=== PATIENT | female | born 1955 | race Caucasian/White ===

== ENCOUNTER 2018-03-21 00:53 | Outpatient (CLI) | payer OTHER, SELFPAY ==
--- NOTE | 2018-03-21 14:52 | DI.RAD_ITS ---
SYMPTOMS/DIAGNOSIS: MALIGNANT NEOPLASM OF LT BREAST, ESTROGEN-RECEPTOR POSITIVE , C50.412, Z17.0, ON AROMATASE INHIBITOR, ROUTINE F/U DEXA SCAN: The scanogram of the dorsolumbar spine is unremarkable. For the left hip, a T score of -0.7 and a Z score of 0.4 are within the normal range. For the lumbar spine, a T score of -2.2 and a Z score of -0.6 indicate osteopenia and an increased fracture risk. For the left forearm, a T score of -2.3 and a Z score of -0.9 are consistent with osteopenia and an increased fracture risk.
== END 2018-03-21 01:13 ==
PROVIDERS: PCP Physician Assistant Medical; Visit Provider Internal Medicine Medical Oncology
DX: C50.412 Malignant neoplasm of upper-outer quadrant of left female breast (principal); Z17.0 Estrogen receptor positive status [ER+]; Z79.811 Long term (current) use of aromatase inhibitors; M85.832 Other specified disorders of bone density and structure, left forearm; M85.88 Other specified disorders of bone density and structure, other site
CPT/HCPCS: 77080

== ENCOUNTER 2018-05-29 08:59 | Outpatient (REF) | payer OTHER, SELFPAY ==
[2018-05-29 20:24] LABS: Anion Gap 9.9 mmol/L (3-11); BUN 14 mg/dL (7-18); CO2 27.1 mmol/L (21.0-32.0); CREATININE 0.69 mg/dL (0.55-1.02); Calcium 9.3 mg/dL (8.5-10.1); Chloride 103 mmol/L (98-107); Glucose 92 mg/dL (70-100); Potassium 4.2 mmol/L (3.5-5.1); Sodium 140 mmol/L (136-145); TSH 2.04 uIU/mL (0.358-3.74)
== END 2018-05-29 09:19 ==
LOC: NCHCN 08:59
PROVIDERS: PCP Physician Assistant Medical; Visit Provider Nurse Practitioner Family
DX: E87.6 Hypokalemia (principal); I10 Essential (primary) hypertension; E03.9 Hypothyroidism, unspecified; Z00.00 Encounter for general adult medical examination without abnormal findings
CPT/HCPCS: 80048; 84443

== ENCOUNTER 2018-06-27 20:24 | Outpatient (REF) | payer OTHER, SELFPAY ==
[2018-07-01 09:03] LABS: Cyclic Citrullinated Peptide <2.5 U/mL (<5.0)
[2018-07-01 10:16] LABS: Rheumatoid Factor <8 IU/mL (<12.5)
== END 2018-06-27 20:44 ==
LOC: NCHCN 20:24
PROVIDERS: PCP Nurse Practitioner Family; Visit Provider Nurse Practitioner Family
DX: M25.50 Pain in unspecified joint (principal); M70.61 Trochanteric bursitis, right hip
CPT/HCPCS: 86200; 86431

== ENCOUNTER 2018-07-03 00:24 | Outpatient (CLI) | payer OTHER, SELFPAY ==
--- NOTE | 2018-07-03 14:00 | DI.RAD_ITS ---
SYMPTOMS/DIAGNOSIS: LEFT HAND JOINT PAIN, M25.50 ARTHRITIS SERIES, BILATERAL HANDS: There is mild narrowing of the interphalangeal joints and mild periarticular spurring. No erosive or productive changes are seen. Minimal degenerative changes are seen in the metacarpophalangeal and carpal regions. IMPRESSION: Mild degenerative changes of the interphalangeal joints of the fingers.
== END 2018-07-03 00:44 ==
PROVIDERS: PCP Family Medicine; Visit Provider Nurse Practitioner Family
DX: M79.641 Pain in right hand (principal); M79.642 Pain in left hand; M19.041 Primary osteoarthritis, right hand; M19.042 Primary osteoarthritis, left hand
CPT/HCPCS: 73120

== ENCOUNTER 2018-07-19 12:56 | Outpatient (CLI) | payer OTHER, SELFPAY ==
[2018-07-19 13:59] LABS: Abs Immature Grans 0.02 k/cumm (0.0-0.09); Absolute Basophil Count 0.03 k/cumm (0.0-0.2); Absolute Eosinophil Count 0.19 k/cumm (0.0-0.7); Absolute Lymphocyte Count 2.02 k/cumm (1.2-3.4); Absolute Monocyte Count 0.56 k/cumm (0.11-0.7); Absolute Neutrophil Count 3.52 k/cumm (1.2-6.7); Basophils % 0.5; HCT 39.3 % (36.0-46.0); HGB 13.4 g/dL (12.0-15.5); Immature Grans % 0.3; Lymphocytes % 31.9; Mean Corp. HGB Concentration 34.1 g/dL (32.0-36.0); Mean Corpuscular Hemoglobin 30.7 pg (27.0-33.0); Mean Corpuscular Volume 90.1 fL (80-95); Mean Platelet Volume 10.6 fL (8.0-11.0); Monocytes % 8.8; Neutrophils % 55.5; Platelet Count 236 x1000/uL (130-400); RBC 4.36 m/cumm (4.00-5.20); RBC Distribution Width 12.7 % (11.7-14.6); White Blood Cell Count 6.34 k/cumm (4.4-10.8)
[2018-07-19 14:50] LABS: ALT 23 U/L (12-78); AST 15 U/L (15-37); Albumin 3.4 g/dL (3.4-5.0); Alkaline Phosphatase 108 U/L (46-116); Anion Gap 11.1 mmol/L (3-11); BUN 16 mg/dL (7-18); Bilirubin, Total 0.2 mg/dL (0.2-1.0); CO2 26.9 mmol/L (21.0-32.0); CREATININE 0.95 mg/dL (0.55-1.02); Calcium 9.2 mg/dL (8.5-10.1); Chloride 105 mmol/L (98-107); Estimated GFR 59.41 (mL/min/1.73m2); Glucose 117 mg/dL (70-100); Sodium 143 mmol/L (136-145); Total Protein 6.2 g/dL (6.4-8.2)
== END 2018-07-19 13:16 ==
PROVIDERS: PCP Family Medicine; Visit Provider Internal Medicine Medical Oncology
DX: C50.412 Malignant neoplasm of upper-outer quadrant of left female breast (principal); Z17.0 Estrogen receptor positive status [ER+]
CPT/HCPCS: 36415; 80053; 85025

== ENCOUNTER 2018-08-26 12:16 | Outpatient (REF) | payer SELFPAY ==
[2018-08-26 22:07] LABS: ALT 32 U/L (12-78); AST 22 U/L (15-37); Albumin 3.7 g/dL (3.4-5.0); Alkaline Phosphatase 97 U/L (46-116); Bilirubin, Total 0.4 mg/dL (0.2-1.0); CREATININE 0.63 mg/dL (0.55-1.02); Total Protein 7.2 g/dL (6.4-8.2)
== END 2018-08-26 12:36 ==
LOC: NCHCN 12:16
PROVIDERS: PCP Family Medicine; Visit Provider Nurse Practitioner Family
DX: B35.1 Tinea unguium (principal); I10 Essential (primary) hypertension; F17.200 Nicotine dependence, unspecified, uncomplicated; E78.5 Hyperlipidemia, unspecified
CPT/HCPCS: 80076; 82565

== ENCOUNTER 2018-09-02 17:55 | Emergency (ER) | payer OTHER, SELFPAY ==
--- NOTE | 2018-09-02 17:57 | W.ED.GENAD ---
Discharge Plan Disposition Patient Disposition: HOME Condition: Stable Discharge Details Chief Complaint: RespSymp Clinical Impression: COPD exacerbation, Shortness of breath Reason For Visit: chills , head ache , nausa Primary Care Provider: Yolanda Diamond V ED Provider: Ming Serrano Home Meds and New Rx's Prescriptions: New doxycycline hyclate 100 mg capsule 100 mg PO BID Qty: 14 RF: 0 prednisone 20 mg tablet 60 mg PO DAILY 5 Days Qty: 15 RF: 0 ondansetron 4 mg tablet,disintegrating 4 mg PO TID PRN (Reason: nausea and vomiting) 5 Days Qty: 30 RF: 0 Continued simvastatin 40 MG tablet 40 mg PO HS RF: 0 levothyroxine 25 MCG tablet 25 mcg PO DAILY RF: 0 ibuprofen 600 MG tablet 600 mg PO QID PRNRF: 0 Chantix Continuing Month Sloan 1 MG tablet 1 mg PO BID RF: 0 Combivent 200 PUFF aerosol 1 - 2 puff Inhalation PRN PRNRF: 0 anastrozole 1 mg Tablet 1 mg PO DAILY AM RF: 0 Discharge Instructions Instructions: COPD (Chronic Obstructive Pulmonary Disease) (ED) Additional Instructions: Your lab work and chest xray did not show any concerning findings. Given your history of smoking I am treating your symptoms as a possible COPD exacerbation Follow up with your primary care provider within a week. Discuss having formal testing for COPD as well you can take 1000mg tylenol and 600mg ibuprofen every 6 hours for pain If you feel you are becoming more ill, having worsening difficulty breathing or persistent vomit return to the emergency department Medical Decision Making 63 yo female with hx of smoking, htn, breast cancer, who comes in with myalgias, cough and shortness of breath starting today. Denies recent travel, has had nausea. NO rashes. She has wheezing bilaterally on exam in all lung addison and intermittently coughs. 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 Will eval for pna, treat likely copd exacerbation with steroids and neb and also obtain chest xray to eval for pna. HAs no evidence of dvt and symptoms seem more infectious so do not feel PE workup indicated at this time labs show no significant abnormality, xray and flu test negative, she remains HD stable. I feel this is likely copd exacerbation, will treat as such with abx and prednisone. SHe is stable for outpatient management, advised f/u with pcp and return precautions given Differential Diagnosis influenza, pna, copd exacerbation Medical Records Medical records reviewed: Yes I reviewed the patient's medical records. Imaging Data Radiologic Study: Attestation: I personally reviewed and interpreted this imaging study as follows: Imaging: X-Ray Radiologist's impression: IMPRESSION: Negative for acute thoracic pathology. Lab Data Lab results reviewed: Yes I reviewed the patient's lab results. HPI General Mode of arrival: ambulatory. Date/Time Provider Initiated Documentation: 09/02/18 17:56. Limitations to Documentation: no limitations. Information obtained by: patient. History of Present Illness 63 year old F presents to the emergency department with the chief complaint of cough, described as moderate, with intensity rated at 4. Quality is described as aching, Patient reports no radiation. Patient started experiencing this day(s) (1) and it has been constant. No relieving factors improve symptom(s), No exacerbating factors reported . Patient notes other (muscle aches). Patient did receive the following treatments prior to arrival, none Related Data Home Medications Medication Instructions Recorded Confirmed Chantix Continuing Month Sloan 1 mg PO BID tab-cap 03/16/15 09/02/18 ibuprofen 600 mg PO QID PRN 03/16/15 09/02/18 levothyroxine 25 mcg PO DAILY tab-cap 03/16/15 09/02/18 simvastatin 40 mg PO HS tab-cap 03/16/15 09/02/18 Combivent 1 - 2 puff INHALATION PRN PRN 09/15/15 09/02/18 anastrozole 1 mg PO DAILY AM 09/02/18 09/02/18 doxycycline hyclate 100 mg PO BID #14 cap 09/02/18 ondansetron 4 mg PO TID PRN 5 Days #30 tab 09/02/18 prednisone 60 mg PO DAILY 5 Days #15 tab 09/02/18 Previous Rx's Medication Instructions Recorded doxycycline hyclate 100 mg PO BID #14 cap 09/02/18 ondansetron 4 mg PO TID PRN 5 Days #30 tab 09/02/18 prednisone 60 mg PO DAILY 5 Days #15 tab 09/02/18 Allergies Allergy/AdvReac Type Severity Reaction Status Date / Time No Known Allergies Allergy Unverified 09/02/18 18:08 Review of Systems Review of Systems All systems reviewed & are unremarkable except as noted in HPI and below Constitutional Denies fever(s) and Denies weakness ENT Denies change in voice Cardiovascular Denies chest pain Gastrointestinal Denies abdominal pain, Denies nausea and Denies vomiting Genitourinary Denies dysuria Musculoskeletal Denies joint swelling Integumentary/Breasts Denies rash Neurologic Denies weakness Psychiatric Denies depression [facility] Medical History Breast cancer, stage 2 HTN (hypertension) Hyperlipidemia Hypothyroidism Surgical History Breast, Lumpectomy sentinel lymph node dissection Social History Smoking and Tabacco status: Former Tobacco Use Exam Const General: no acute distress Orientation: alert HENWV Head: normal to inspection Ears: external ears normal General nose exam: external nose normal Mouth: moist mucous membranes Eyes General: appearance normal, both eyes and all related structures Neck Neck: normal visual inspection Resp Effort & Inspection: normal respiratory effort and able to speak in complete sentences Cardio Rate: regular rate Skin General skin exam: no rashes or lesions noted Neuro General: alert and oriented x3 Extrem General: normal to inspection Psych Mental Status: mental status grossly normal
[2018-09-02 18:05] VITALS: BP 136/58; PULSE 106; RESP 22; TEMP 36.5; O2SAT 95
--- NOTE | 2018-09-02 18:05 | DI.RAD_ITS ---
SYMPTOM/DIAGNOSIS: COUGH PA AND LATERAL CHEST: Comparison is made with 10/26/15. The heart size is normal. The lungs appear clear. Upper lung hyperinflation is noted consistent with emphysematous changes. IMPRESSION: No acute abnormality.
--- NOTE | 2018-09-02 18:09 | ED.GENADUL_ITS ---
Discharge Plan Disposition Patient Disposition: HOME Condition: Stable Discharge Details Chief Complaint: RespSymp Clinical Impression: COPD exacerbation, Shortness of breath Reason For Visit: chills , head ache , nausa Primary Care Provider: Yolanda Daimond V ED Provider: Ming Serrano Home Meds and New Rx's Prescriptions: New doxycycline hyclate 100 mg capsule 100 mg PO BID Qty: 14 RF: 0 prednisone 20 mg tablet 60 mg PO DAILY 5 Days Qty: 15 RF: 0 ondansetron 4 mg tablet,disintegrating 4 mg PO TID PRN (Reason: nausea and vomiting) 5 Days Qty: 30 RF: 0 Continued simvastatin 40 MG tablet 40 mg PO HS RF: 0 levothyroxine 25 MCG tablet 25 mcg PO DAILY RF: 0 ibuprofen 600 MG tablet 600 mg PO QID PRNRF: 0 Chantix Continuing Month Sloan 1 MG tablet 1 mg PO BID RF: 0 Combivent 200 PUFF aerosol 1 - 2 puff Inhalation PRN PRNRF: 0 anastrozole 1 mg Tablet 1 mg PO DAILY AM RF: 0 Discharge Instructions Instructions: COPD (Chronic Obstructive Pulmonary Disease) (ED) Additional Instructions: Your lab work and chest xray did not show any concerning findings. Given your history of smoking I am treating your symptoms as a possible COPD exacerbation Follow up with your primary care provider within a week. Discuss having formal testing for COPD as well you can take 1000mg tylenol and 600mg ibuprofen every 6 hours for pain If you feel you are becoming more ill, having worsening difficulty breathing or persistent vomit return to the emergency department Medical Decision Making 63 yo female with hx of smoking, htn, breast cancer, who comes in with myalgias, cough and shortness of breath starting today. Denies recent travel, has had nausea. NO rashes. She has wheezing bilaterally on exam in all lung addison and intermittently coughs. She has no meningismus to suggest account associate infection. Will eval for pna, treat likely copd exacerbation with steroids and neb and also obtain chest xray to eval for pna. HAs no evidence of dvt and symptoms seem more infectious so do not feel PE workup indicated at this time labs show no significant abnormality, xray and flu test negative, she remains HD stable. I feel this is likely copd exacerbation, will treat as such with abx and prednisone. SHe is stable for outpatient management, advised f/u with pcp and return precautions given Differential Diagnosis influenza, pna, copd exacerbation Medical Records Medical records reviewed: Yes I reviewed the patient's medical records. Imaging Data Radiologic Study: Attestation: I personally reviewed and interpreted this imaging study as follows: Imaging: X-Ray Radiologist's impression: IMPRESSION: Negative for acute thoracic pathology. Lab Data Lab results reviewed: Yes I reviewed the patient's lab results. HPI General Mode of arrival: ambulatory . Date/Time Provider Initiated Documentation: 09/02/18 17:56 . Limitations to Documentation: no limitations . Information obtained by: patient . History of Present Illness 63 year old F presents to the emergency department with the chief complaint of cough, described as moderate, with intensity rated at 4. Quality is described as aching, Patient reports no radiation. Patient started experiencing this day(s) (1) and it has been constant. No relieving factors improve sy mptom(s), No exacerbating factors reported . Patient notes other (muscle aches). Patient did receive the following treatments prior to arrival, none Related Data Home Medications Medication Instructions Recorded Confirmed Chantix Continuing Month Sloan 1 mg PO BID tab-cap 03/16/15 09/02/18 ibuprofen 600 mg PO QID PRN 03/16/15 09/02/18 levothyroxine 25 mcg PO DAILY tab-cap 03/16/15 09/02/18 simvastatin 40 mg PO HS tab-cap 03/16/15 09/02/18 Combivent 1 - 2 puff INHALATION PRN PRN 09/15/15 09/02/18 anastrozole 1 mg PO DAILY AM 09/02/18 09/02/18 doxycycline hyclate 100 mg PO BID #14 cap 09/02/18 ondansetron 4 mg PO TID PRN 5 Days #30 tab 09/02/18 prednisone 60 mg PO DAILY 5 Days #15 tab 09/02/18 Previous Rx's Medication Instructions Recorded doxycycline hyclate 100 mg PO BID #14 cap 09/02/18 ondansetron 4 mg PO TID PRN 5 Days #30 tab 09/02/18 prednisone 60 mg PO DAILY 5 Days #15 tab 09/02/18 Allergies Allergy/AdvReac Type Severity Reaction Status Date / Time No Known Allergies Allergy Unverified 09/02/18 18:08 Review of Systems Review of Systems All systems reviewed & are unremarkable except as noted in HPI and below Constitutional Denies fever(s) and Denies weakness ENT Denies change in voice Cardiovascular Denies chest pain Gastrointestinal Denies abdominal pain, Denies nausea and Denies vomiting Genitourinary Denies dysuria Musculoskeletal Denies joint swelling Integumentary/Breasts Denies rash Neurologic Denies weakness Psychiatric Denies depression [facility] Medical History Breast cancer, stage 2 HTN (hypertension) Hyperlipidemia Hypothyroidism Surgical History Breast, Lumpectomy sentinel lymph node dissection Social History Smoking and Tabacco status: Former Tobacco Use Exam Const General: no acute distress Orientation: alert HENVA Head: normal to inspection Ears: external ears normal General nose exam: external nose normal Mouth: moist mucous membranes Eyes General: appearance normal, both eyes and all related structures Neck Neck: normal visual inspection Resp Effort & Inspection: normal respiratory effort and able to speak in complete sentences Cardio Rate: regular rate Skin General skin exam: no rashes or lesions noted Neuro General: alert and oriented x3 Extrem General: normal to inspection Psych Mental Status: mental status grossly normal
[2018-09-02] MEDS: Albuterol/Ipratropium 3 ML UPD VIAL UPD (18:19)
[2018-09-02] MEDS: Normal Saline 1,000 ML 1000 ML IV (18:29)
[2018-09-02] MEDS: methylPREDNISolone SUCC 125 MG VIAL IVP (18:30)
[2018-09-02] MEDS: Ondansetron 4 MG/2 ML VIAL IVP (18:43)
[2018-09-02] MEDS: Ketorolac 15 MG/ML VIAL IVP (18:45)
[2018-09-02 18:49] VITALS: RESP 8
[2018-09-02 18:51] LABS: Abs Immature Grans 0.02 k/cumm (0.0-0.09); Absolute Basophil Count 0.02 k/cumm (0.0-0.2); Absolute Eosinophil Count 0.03 k/cumm (0.0-0.7); Absolute Lymphocyte Count 0.53 k/cumm (1.2-3.4); Absolute Monocyte Count 0.53 k/cumm (0.11-0.7); Basophils % 0.2; Eosinophils % 0.4; HCT 40.9 % (36.0-46.0); Immature Grans % 0.2; Lymphocytes % 6.4; Mean Corp. HGB Concentration 34.2 g/dL (32.0-36.0); Mean Corpuscular Hemoglobin 30.6 pg (27.0-33.0); Mean Corpuscular Volume 89.5 fL (80-95); Mean Platelet Volume 10.9 fL (8.0-11.0); Monocytes % 6.4; Neutrophils % 86.4; Platelet Count 193 x1000/uL (130-400); RBC 4.57 m/cumm (4.00-5.20); RBC Distribution Width 12.9 % (11.7-14.6); White Blood Cell Count 8.33 k/cumm (4.4-10.8)
--- NOTE | 2018-09-02 19:18 | DI.VRAD_ITS ---
EXAM: XR Chest, 2 Views EXAM DATE/TIME: 09/02/2018 6:06 PM CLINICAL HISTORY: 63 years old, female; Signs and symptoms; Cough TECHNIQUE: XR of the chest, 2 views. COMPARISON: CR CHEST 2 VIEWS PA,LAT 10/26/2015 9:11 PM FINDINGS: Lungs: There is mild pulmonary hyperexpansion which would suggest mild COPD. No acute interstitial or airspace disease. Pleural space: Unremarkable. No pleural effusion. No pneumothorax. Heart/Mediastinum: Unremarkable. No cardiomegaly. Bones/joints: No acute skeletal abnormality. IMPRESSION: Negative for acute thoracic pathology. Dictated and Authenticated by: Leonid Anders MD. Ordering:KULDEEP Lai MD
[2018-09-02 19:25] VITALS: BP 118/56; PULSE 105; TEMP 37.6; O2SAT 93
[2018-09-02 19:28] LABS: ALT 27 U/L (12-78); AST 19 U/L (15-37); Albumin 3.6 g/dL (3.4-5.0); Alkaline Phosphatase 92 U/L (46-116); Anion Gap 12.5 mmol/L (3-11); BUN 10 mg/dL (7-18); Bilirubin, Total 0.5 mg/dL (0.2-1.0); CO2 23.5 mmol/L (21.0-32.0); CREATININE 0.83 mg/dL (0.55-1.02); Calcium 9.1 mg/dL (8.5-10.1); Chloride 100 mmol/L (98-107); Glucose 116 mg/dL (70-100); Potassium 3.8 mmol/L (3.5-5.1); Sodium 136 mmol/L (136-145)
[2018-09-02] MEDS: Ondansetron O.D.T. 4 MG TABEF PO (19:42)
[2018-09-02] MEDS: Doxycycline Hyclate 100 MG CAP PO (19:42)
== END 2018-09-02 19:47 | disposition home or self-care (01) ==
PROVIDERS: Emergency Provider Emergency Medicine; PCP Family Medicine
DX: J44.1 Chronic obstructive pulmonary disease with (acute) exacerbation (principal); R06.02 Shortness of breath; Z87.891 Personal history of nicotine dependence
CPT/HCPCS: 36415; 80053; 87449; 94640; 96361; 96374; 96375; 99284; 71046; 85025; J1885; J2405; J2930; J7620

== ENCOUNTER 2019-01-15 12:25 | Outpatient (CLI) | payer OTHER, SELFPAY ==
[2019-01-15 13:19] LABS: Abs Immature Grans 0.01 k/cumm (0.0-0.09); Absolute Basophil Count 0.03 k/cumm (0.0-0.2); Absolute Eosinophil Count 0.14 k/cumm (0.0-0.7); Absolute Lymphocyte Count 2.03 k/cumm (1.2-3.4); Absolute Monocyte Count 0.47 k/cumm (0.11-0.7); Absolute Neutrophil Count 3.99 k/cumm (1.2-6.7); Basophils % 0.4; Eosinophils % 2.1; HCT 41.7 % (36.0-46.0); HGB 14.4 g/dL (12.0-15.5); Immature Grans % 0.1; Lymphocytes % 30.4; Mean Corp. HGB Concentration 34.5 g/dL (32.0-36.0); Mean Corpuscular Hemoglobin 31.2 pg (27.0-33.0); Mean Corpuscular Volume 90.5 fL (80-95); Mean Platelet Volume 11.4 fL (8.0-11.0); Platelet Count 207 x1000/uL (130-400); RBC 4.61 m/cumm (4.00-5.20); RBC Distribution Width 13.6 % (11.7-14.6); White Blood Cell Count 6.67 k/cumm (4.4-10.8)
[2019-01-15 14:05] LABS: ALT 19 U/L (12-78); AST 14 U/L (15-37); Albumin 3.4 g/dL (3.4-5.0); Alkaline Phosphatase 113 U/L (46-116); Anion Gap 11.9 mmol/L (3-11); BUN 10 mg/dL (7-18); Bilirubin, Total 0.2 mg/dL (0.2-1.0); CO2 23.1 mmol/L (21.0-32.0); CREATININE 0.68 mg/dL (0.55-1.02); Chloride 107 mmol/L (98-107); Glucose 102 mg/dL (70-100); Potassium 4.4 mmol/L (3.5-5.1); Sodium 142 mmol/L (136-145); Total Protein 6.5 g/dL (6.4-8.2)
== END 2019-01-15 12:45 ==
PROVIDERS: PCP Family Medicine; Visit Provider Nurse Practitioner Family
DX: C50.412 Malignant neoplasm of upper-outer quadrant of left female breast (principal); Z17.0 Estrogen receptor positive status [ER+]
CPT/HCPCS: 36415; 80053; 85025

== ENCOUNTER 2019-02-25 05:39 | Emergency (ER) | payer OTHER, SELFPAY ==
--- NOTE | 2019-02-25 05:44 | DI.RAD_ITS ---
SYMPTOM/DIAGNOSIS: COUGH PORTABLE CHEST: Comparison is made with 02 September 2018. Heart size is within normal limits. There are emphysematous changes seen greater near the L-1 lung apices. No infiltrate, effusion or pneumothorax is seen. IMPRESSION: No acute abnormality
[2019-02-25 05:45] VITALS: BP 159/67; PULSE 98; RESP 20; TEMP 36.3; O2SAT 92
--- NOTE | 2019-02-25 05:45 | ED.GENADUL_ITS ---
Discharge Plan Disposition Patient Disposition: HOME Condition: Stable Discharge Details Chief Complaint: SOB Clinical Impression: COPD with acute exacerbation Primary Care Provider: Yolanda Diamond V ED Provider: Ming Serrano Home Meds and New Rx's Prescriptions: New prednisone 20 mg tablet 60 mg PO DAILY 5 Days Qty: 15 RF: 0 Continued simvastatin 40 MG tablet 40 mg PO HS RF: 0 levothyroxine 25 MCG tablet 25 mcg PO DAILY RF: 0 ibuprofen 600 MG tablet 600 mg PO QID PRNRF: 0 Chantix Continuing Month Sloan 1 MG tablet 1 mg PO BID RF: 0 Combivent 200 PUFF aerosol 1 - 2 puff Inhalation PRN PRNRF: 0 anastrozole 1 mg Tablet 1 mg PO DAILY AM RF: 0 Discontinued doxycycline hyclate 100 mg capsule 100 mg PO BID Qty: 14 RF: 0 Discharge Instructions Instructions: COPD (Chronic Obstructive Pulmonary Disease) (ED) Additional Instructions: if you feel more ill, have worsening shortness of breath or severe pain return to the emergency department follow up with your primary care provider within 1 week especially if symptoms are continuing Medical Decision Making 63 yo female with hx of copd and continued smoker, hld, who comes in with cc of cough and shortness of breath for a week. Denies fevers, recent travel, vomit. Sandy similar to when she was tx'd for copd exacerbation in August per pt. She arrives in no distres, on exam has diffuse wheezing bilaterally with intermittent cough. Given her symptoms and hx will tx for copd and obtain xray to eval for infiltrate. Symptoms and exam more consistent with copd than acs or chf, Heart score is 3, will send troponin and ecg. Has no evidence of dvt, no tachycardia or hypoxia so doubt PE pt feels better after neb and steroids, labs unremarkable, probnp barely outside normal range without evidence of pulmonary edema. She is speaking in full sentences, hd stable. Lung exam significantly improved with only mild apical wheezing. Will d/c on steroids and advised f/u with pcp and return precautions given Differential Diagnosis copd, pna, chf, acs Medical Records Medical records reviewed: Yes I reviewed the patient's medical records. Imaging Data Radiologic Study: Attestation: I personally reviewed and interpreted this imaging study as follows: Imaging: X-Ray Radiologist's impression: IMPRESSION: Mild hyperinflation. No acute process. Stable appearance. Lab Data Lab results reviewed: Yes I reviewed the patient's lab results. ECG Data Attestation: I personally reviewed and interpreted this ECG (s) as follows: Prior ECG tracings: not available for review Interpretation: sinus rhythm, rate of 85, pr 184, no acute st t wave ischemic findings HPI General Mode of arrival: ambulatory . Date/Time Provider Initiated Documentation: 02/25/19 05:40 . Limitations to Documentation: no limitations . Information obtained by: patient . History of Present Illness 63 year old F presents to the emergency department with the chief complaint of shortness of breath, described as moderate, No relieving factors improve symptom(s), No exacerbating factors reported . Patient did receive the following treatments prior to arrival, none Related Data Home Medications Medication Instructions Recorded Confirmed Chantix Continuing Month Sloan 1 mg PO BID tab-cap 03/16/15 09/02/18 ibuprofen 600 mg PO QID PRN 03/16/15 09/02/18 levothyroxine 25 mcg PO DAILY tab-cap 03/16/15 09/02/18 simvastatin 40 mg PO HS tab-cap 03/16/15 09/02/18 Combivent 1 - 2 puff INHALATION PRN PRN 09/15/15 09/02/18 anastrozole 1 mg PO DAILY AM 09/02/18 09/02/18 prednisone 60 mg PO DAILY 5 Days #15 tab 02/25/19 Previous Rx's Medication Instructions Recorded prednisone 60 mg PO DAILY 5 Days #15 tab 02/25/19 Allergies Allergy/AdvReac Type Severity Reaction Status Date / Time No Known Allergies Allergy Unverified 02/25/19 05:57 General MANJIT: 3 Review of Systems Review of Systems All systems reviewed & are unremarkable except as noted in HPI and below Constitutional Denies chills, Denies fever(s) and Denies weakness Gastrointestinal Denies abdominal pain, Denies nausea and Denies vomiting Genitourinary Denies dysuria Musculoskeletal Denies joint swelling Integumentary/Breasts Denies rash Neurologic Denies weakness [facility] Social History Smoking/Tobacco Use Status: Current every day Alcohol Intake: never Drug use: Never Substance use type: does not use Exam Const General: no acute distress Orientation: alert HENMT Head: normal to inspection Ears: external ears normal General nose exam: external nose normal Mouth: moist mucous membranes Eyes General: appearance normal, both eyes and all related structures Neck Neck: normal visual inspection Resp Effort & Inspection: normal respiratory effort and able to speak in complete sentences Cardio Rate: regular rate Skin General skin exam: no rashes or lesions noted Neuro General: alert and oriented x3 Extrem General: normal to inspection Psych Mental Status: mental status grossly normal
[2019-02-25 05:50] VITALS: RESP 4
[2019-02-25] MEDS: Albuterol/Ipratropium 3 ML UPD VIAL UPD (05:50)
[2019-02-25] MEDS: methylPREDNISolone SUCC 125 MG VIAL IVP (05:51)
[2019-02-25] MEDS: Normal Saline Flush 10 ML SYR IVP (05:54)
[2019-02-25 05:58] VITALS: RESP 20
[2019-02-25 06:00] LABS: Abs Immature Grans 0.02 k/cumm (0.0-0.09); Absolute Basophil Count 0.02 k/cumm (0.0-0.2); Absolute Eosinophil Count 0.16 k/cumm (0.0-0.7); Absolute Lymphocyte Count 2.02 k/cumm (1.2-3.4); Absolute Monocyte Count 0.58 k/cumm (0.11-0.7); Absolute Neutrophil Count 6.51 k/cumm (1.2-6.7); Basophils % 0.2; Eosinophils % 1.7; HCT 41.2 % (36.0-46.0); HGB 14.3 g/dL (12.0-15.5); Immature Grans % 0.2; Lymphocytes % 21.7; Mean Corp. HGB Concentration 34.7 g/dL (32.0-36.0); Mean Corpuscular Hemoglobin 31.5 pg (27.0-33.0); Mean Corpuscular Volume 90.7 fL (80-95); Mean Platelet Volume 10.7 fL (8.0-11.0); Monocytes % 6.2; Platelet Count 239 x1000/uL (130-400); RBC 4.54 m/cumm (4.00-5.20); RBC Distribution Width 13.3 % (11.7-14.6); White Blood Cell Count 9.31 k/cumm (4.4-10.8)
[2019-02-25 06:03] VITALS: O2SAT 94
[2019-02-25 06:12] VITALS: BP 133/74; PULSE 62; RESP 20; O2SAT 95
[2019-02-25 06:20] LABS: ALT 25 U/L (14-59); AST 13 U/L (15-37); Albumin 3.5 g/dL (3.4-5.0); Alkaline Phosphatase 127 U/L (46-116); Anion Gap 10.5 mmol/L (3-11); BUN 15 mg/dL (7-18); Bilirubin, Total 0.2 mg/dL (0.2-1.0); CO2 23.5 mmol/L (21.0-32.0); CREATININE 0.88 mg/dL (0.55-1.02); Chloride 106 mmol/L (98-107); Glucose 122 mg/dL (70-100); NT-proBNP 369 pg/mL; Potassium 4.2 mmol/L (3.5-5.1); Sodium 140 mmol/L (136-145); Total Protein 7.1 g/dL (6.4-8.2)
[2019-02-25 06:21] LABS: INR 0.9 (0.9-1.1); PTT Activated 24.1 sec (21.0-31.4); Prothrombin Time 9.3 sec (9.3-11.0); Troponin I < 0.05 ng/mL (0.00-0.06)
--- NOTE | 2019-02-25 06:26 | DI.VRAD_ITS ---
EXAM: XR Chest, 1 View EXAM DATE/TIME: 02/25/2019 5:45 AM CLINICAL HISTORY: 63 years old, female; Cough and shortness of breath; Patient HX: Cough and SOB x 1 week TECHNIQUE: Imaging protocol: XR of the chest, 1 view. COMPARISON: CR XR CHEST 2V PA LATERAL 09/02/2018 6:53 PM FINDINGS: Lungs: Mild hyperinflation. No consolidative pneumonia or pulmonary edema. Pleural space: Unremarkable. No pleural effusion. No pneumothorax. Heart/Mediastinum: Cardiac size normal. Vasculature: Aortic atherosclerotic calcification. Bones/joints: Mild degenerative changes noted throughout the spine. IMPRESSION: Mild hyperinflation. No acute process. Stable appearance. Dictated and Authenticated by: Jesus Tejada MD. Ordering:KULDEEP Lai MD
== END 2019-02-25 06:59 | disposition home or self-care (01) ==
PROVIDERS: Emergency Provider Emergency Medicine; PCP Family Medicine
DX: J44.1 Chronic obstructive pulmonary disease with (acute) exacerbation (principal); F17.210 Nicotine dependence, cigarettes, uncomplicated
CPT/HCPCS: 36415; 80053; 94640; 96374; 99284; 71045; 83880; 84484; 85025; 85610; 85730; J2930; J3490; J7620

== ENCOUNTER 2019-02-25 08:15 | Emergency (ER) | payer OTHER, SELFPAY ==
[2019-02-25] VITALS (24 sets, daily range): BP systolic 130–156; BP diastolic 63–104; PULSE 87–102; RESP 15–32; TEMP 36.6–36.8; O2SAT 91–98
--- NOTE | 2019-02-25 08:17 | NUR.NOTE ---
Nursing Note: pt was here 0500 for SOB diagnosed as COPD exacerbation pt i here for identical symptoms
--- NOTE | 2019-02-25 08:24 | ED.GENADUL_ITS ---
Discharge Plan Disposition Patient Disposition: HOME Condition: Fair Discharge Details Chief Complaint: SOB Clinical Impression: COPD exacerbation Primary Care Provider: Yolanda Diamond V ED Provider: Jami Yee Home Meds and New Rx's Prescriptions: Continued simvastatin 40 MG tablet 40 mg PO HS RF: 0 levothyroxine 25 MCG tablet 25 mcg PO DAILY RF: 0 ibuprofen 600 MG tablet 600 mg PO QID PRNRF: 0 Chantix Continuing Month Sloan 1 MG tablet 1 mg PO BID RF: 0 Combivent 200 PUFF aerosol 1 - 2 puff Inhalation PRN PRNRF: 0 prednisone 20 mg tablet 60 mg PO DAILY 5 Days Qty: 15 RF: 0 anastrozole 1 mg Tablet 1 mg PO DAILY AM RF: 0 Discharge Instructions Instructions: COPD (Chronic Obstructive Pulmonary Disease) (ED) Additional Instructions: Your labs continue to be reassuring at this time. Symptoms are likely secondary to the steroids you received here this morning. Please encourage hydration. Please continue to follow with the instructions and to discharge earlier today. May use Benadryl to help with insomnia. If you develop new or worsening symptoms please seek care urgently once again. Otherwise, please follow-up with primary care at the end of the week. Referrals: Yolanda Diamond MD [Primary Care Provider] - Discharge Data Discharge Date/Time-TO BE ENTERED AT DEPARTURE: 02/25/19 10:18 Medical Decision Making <Cholo Camacho DO - Last Filed: 02/25/19 08:40> ECG Data Attestation: I personally reviewed and interpreted this ECG (s) as follows: Interpretation: EKG 8: 24 Rate 104, DC 184, QTc 476, QRS 92, sinus tachycardia, no significant elevation or depression, no Q waves. No evidence of STEMI. No other significant abnormalities. <EMMETT Krueger - Last Filed: 02/25/19 15:54> Patient is 63-year-old female presenting today with chief complaint of fatigue and shortness of breath. She reports that she has been intermittently short of breath past week. Please see HPI. On exam, she appears anxious. She is tachycardic with a pulse of 101, blood pressure elevated 156/76 which is not atypical for the patient. Lungs are clear on exam. She is not hypoxic. She is endorsing some mild chest discomfort which she states she was endorsing earlier this morning. States this is worse with cough. States the pain is fairly diffuse across the anterior aspect of the chest. Patient denies any recent travel. Is not on any estrogen therapy. Plan to screen for possible pulmonary embolism the patient's tachycardia she does not have any calf tenderness to indicate DVT. Lungs are clear at this time, I do not feel that further nebulizers appropriate. I discussed the patient as this may all be secondary to the steroids she received this morning. ECG was reviewed by Dr. Camacho. Discussed with the patient is likely associated with her steroids. However, as the patient had one troponin, will repeat this year and obtain a d-dimer to screen for possible pulmonary embolism as being the source of her shortness of breath. Patient was noted to be tachycardic on first arrival. She is not hypoxic. Did not have any bilateral lower extremity pain, no evidence of DVT. Troponin remains less than 0.05. D-dimer is 530 making it less than her cut up of 630. Discussed these findings with the patient. Advised this likely associated with her steroids. I encouraged hydration. She will continue with the steroids will use Benadryl as needed to help with sleep. She has plan to break the 60 mg of prednisone up to do 3 times daily 20 mg dosing in the upcoming days, advised that this may help with symptomatic management with a lower dose. She was given strict return precautions. Advise close follow-up with primary care. All of her questions and concerns were addressed and she is in agreement this plan. HPI <Cholo Camacho, - Last Filed: 02/25/19 08:40> General Date/Time Provider Initiated Documentation: 02/25/19 08:22 . Related Data Home Medications Medication Instructions Recorded Confirmed Chantix Continuing Month Sloan 1 mg PO BID tab-cap 03/16/15 02/25/19 ibuprofen 600 mg PO QID PRN 03/16/15 02/25/19 levothyroxine 25 mcg PO DAILY tab-cap 03/16/15 02/25/19 simvastatin 40 mg PO HS tab-cap 03/16/15 02/25/19 Combivent 1 - 2 puff INHALATION PRN PRN 09/15/15 02/25/19 anastrozole 1 mg PO DAILY AM 09/02/18 02/25/19 prednisone 60 mg PO DAILY 5 Days #15 tab 02/25/19 02/25/19 Previous Rx's Medication Instructions Recorded prednisone 60 mg PO DAILY 5 Days #15 tab 02/25/19 Allergies Allergy/AdvReac Type Severity Reaction Status Date / Time No Known Allergies Allergy Unverified 02/25/19 08:22 <EMMETT Krueger - Last Filed: 02/25/19 15:54> General Mode of arrival: ambulatory . Limitations to Documentation: no limitations . Information obtained by: patient and RN notes reviewed . HPI Narrative: Information obtained by: patient and RN notes reviewed. HPI Narrative: Patient is 63-year-old male presenting today with chief complaint of shortness of breath and fatigue. She was seen here 3 hours ago. At that time, she was diagnosed with COPD exacerbation after lengthy and appropriate evaluation which included a chest x-ray, laboratory evaluation included BNP and troponin. BNP was mildly elevated around 300 she is slightly elevated from patient's baseline. However, patient did not exhibit any bilateral lower extremity edema. Did not have any evidence of pulmonary edema. Patient was wheezing on initial exam and symptoms alleviated after nebulizer treatment. Patient does not have a nebulizer at home. She was given steroids and sent home on a steroid taper. She reports that after going home, she tried to lay down to sleep and felt jittery, was unable to fall asleep and continues to feel short of breath. General Stated Complaint: SOB MANJIT: 3 <EMMETT Krueger - Last Filed: 02/25/19 15:54> Constitutional Reports as per HPI, Denies chills, Denies fever(s), Denies headache(s), Denies lethargy and Denies poor appetite Eyes Denies change in vision ENT Denies dizziness and Denies headache(s) Cardiovascular Reports as per HPI, Reports chest pain (mild with cough), Denies lightheadedness, Denies radiating jaw, neck or arm pain, Denies palpitations, Reports dyspnea, Reports dyspnea on exertion, Reports orthopnea and Denies paroxysmal nocturnal dyspnea Respiratory Reports as per HPI, Denies chest congestion, Reports cough, Denies pain on inspiration, Reports pain with cough, Reports dyspnea, Reports dyspnea on exertion and Denies wheezing Gastrointestinal Reports as per HPI, Denies abdominal pain, Denies diarrhea, Denies nausea and Denies vomiting Musculoskeletal Reports as per HPI and Denies back pain Integumentary/Breasts Reports as per HPI and Denies rash Neurologic Reports as per HPI, Denies dizziness and Denies headache(s) Endocrine Denies palpitations Allergic/Immunologic Denies wheezing PFSH <Cholo Camacho DO - Last Filed: 02/25/19 08:40> Medical History Breast cancer, stage 2 HTN (hypertension) Hyperlipidemia Hypothyroidism Surgical History Breast, Lumpectomy sentinel lymph node dissection Social History Smoking/Tobacco Use Status: Current every day Tobacco Type: cigarettes Smoking cigarettes per day: 20 Years smoked: 50 Alcohol Intake: never Drug use: Never Substance use type: does not use Do you feel safe at home: Yes Do you feel safe in your relationship?: Yes <EMMETT Krueger - Last Filed: 02/25/19 15:54> Const General: cooperative, healthy appearing, comfortable, no acute distress and well developed Nutritional Appearance: average body habitus and well nourished Orientation: alert, awake and oriented x3 HENMT Head: normal to inspection Ears: hearing grossly normal bilaterally Mouth: moist mucous membranes Chest Chest: normal inspection of the chest, normal palpation of entire chest wall and no crepitus Resp Effort & Inspection: normal respiratory effort, able to speak in complete sentences and no respiratory distress Auscultation: clear to auscultation bilaterally, no rales, no rhonchi and no wheezes Cardio Rate: regular rate Rhythm: regular rhythm Heart Sounds: S1 normal and S2 normal GI Inspection: normal to inspection, no edema and non-distended Palpation: soft, no hepatosplenomegaly, not firm, no guarding, not rigid and nontender Auscultation: normal bowel sounds Back/Spine/Pelvis Back: no CVA tenderness Thoracic/Lumbar Spine: thoracic and lumbar spine normal to inspection Skin General skin exam: no rashes or lesions noted Trauma: no lacerations or abrasions Neuro General: alert, awake and oriented x3 Cognition: normal cognition Speech: speech normal Gait: normal gait Extrem General: normal to inspection, normal capillary refill, no pedal edema, no calf tenderness and normal gait Psych Appearance: grossly normal and well kempt Mental Status: mental status grossly normal Speech and Movement: speech and movement normal <Jami Yee PA - Last Filed: 02/25/19 15:54> Vital Signs Temperature 36.8 C 02/25/19 08:18 Pulse 101 H 02/25/19 08:18 Respiratory Rate 18 02/25/19 08:18 Blood Pressure 156/76 H 02/25/19 08:18 Pulse Oximetry 95 02/25/19 08:18 Temperature 36.8 C 02/25/19 08:18 Temperature Source Skin 02/25/19 08:18 Pulse 101 H 02/25/19 08:18 Respiratory Rate 18 02/25/19 08:18 Blood Pressure 156/76 H 02/25/19 08:18 Blood Pressure Position Supine 02/25/19 08:18 Pulse Oximetry 95 02/25/19 08:18 Oxygen Delivery Method Room Air 02/25/19 08:18 Oxygen Flow Rate 0 02/25/19 08:18 Pain Level 1 02/25/19 08:18
--- NOTE | 2019-02-25 08:42 | ED.GENADUL_ITS ---
Discharge Plan Discharge Details Chief Complaint: SOB Primary Care Provider: Yolanda Diamond V ED Provider: Jami Yee Home Meds and New Rx's Prescriptions: No Action simvastatin 40 MG tablet 40 mg PO HS RF: 0 levothyroxine 25 MCG tablet 25 mcg PO DAILY RF: 0 ibuprofen 600 MG tablet 600 mg PO QID PRNRF: 0 Chantix Continuing Month Sloan 1 MG tablet 1 mg PO BID RF: 0 Combivent 200 PUFF aerosol 1 - 2 puff Inhalation PRN PRNRF: 0 prednisone 20 mg tablet 60 mg PO DAILY 5 Days Qty: 15 RF: 0 anastrozole 1 mg Tablet 1 mg PO DAILY AM RF: 0 Medical Decision Making Patient is 63-year-old female presenting today with chief complaint of fatigue and shortness of breath. She reports that she has been intermittently short of breath past week. Please see HPI. On exam, she appears anxious. She is tachycardic with a pulse of 101, blood pressure elevated 156/76 which is not atypical for the patient. Lungs are clear on exam. She is not hypoxic. She is endorsing some mild chest discomfort which she states she was endorsing earlier this morning. States this is worse with cough. States the pain is fairly diffuse across the anterior aspect of the chest. Patient denies any recent travel. Is not on any estrogen therapy. Plan to screen for possible pulmonary embolism the patient's tachycardia she does not have any calf tenderness to indicate DVT. Lungs are clear at this time, I do not feel that further nebulizers appropriate. I discussed the patient as this may all be secondary to the steroids she received this morning. HPI General Mode of arrival: ambulatory . Date/Time Provider Initiated Documentation: 02/25/19 08:22 . Limitations to Documentation: no limitations . Information obtained by: patient and RN notes reviewed . HPI Narrative: Patient is 63-year-old male presenting today with chief complaint of shortness of breath and fatigue. She was seen here 3 hours ago. At that time, she was diagnosed with COPD exacerbation after lengthy and appropriate evaluation which included a chest x-ray, laboratory evaluation included BNP and troponin. BNP was mildly elevated around 300 she is slightly elevated from patient's baseline. However, patient did not exhibit any bilateral lower extremity edema. Did not have any evidence of pulmonary edema. Patient was wheezing on initial exam and symptoms alleviated after nebulizer treatment. Patient does not have a nebulizer at home. She was given steroids and sent home on a steroid taper. She reports that after going home, she tried to lay down to sleep and felt jittery, was unable to fall asleep and continues to feel short of breath. Related Data Home Medications Medication Instructions Recorded Confirmed Chantix Continuing Month Sloan 1 mg PO BID tab-cap 03/16/15 02/25/19 ibuprofen 600 mg PO QID PRN 03/16/15 02/25/19 levothyroxine 25 mcg PO DAILY tab-cap 03/16/15 02/25/19 simvastatin 40 mg PO HS tab-cap 03/16/15 02/25/19 Combivent 1 - 2 puff INHALATION PRN PRN 09/15/15 02/25/19 anastrozole 1 mg PO DAILY AM 09/02/18 02/25/19 prednisone 60 mg PO DAILY 5 Days #15 tab 02/25/19 02/25/19 Previous Rx's Medication Instructions Recorded prednisone 60 mg PO DAILY 5 Days #15 tab 02/25/19 Allergies Allergy/AdvReac Type Severity Reaction Status Date / Time No Known Allergies Allergy Unverified 02/25/19 08:22 General Stated Complaint: SOB MANJIT: 3 Review of Systems Constitutional Reports as per HPI, Denies chills, Denies fever(s), Denies headache(s), Denies lethargy and Denies poor appetite Eyes Denies change in vision ENT Denies dizziness and Denies headache(s) Cardiovascular Reports as per HPI, Denies dyspnea and Denies dyspnea on exertion Respiratory Reports as per HPI, Denies chest congestion, Denies cough, Denies pain on inspiration, Denies pain with cough, Denies dyspnea, Denies dyspnea on exertion and Denies wheezing Gastrointestinal Reports as per HPI, Denies abdominal pain, Denies diarrhea, Denies nausea and Denies vomiting Musculoskeletal Reports as per HPI and Denies back pain Integumentary/Breasts Reports as per HPI and Denies rash Neurologic Reports as per HPI, Denies dizziness and Denies headache(s) Allergic/Immunologic Denies wheezing [facility] Medical History Breast cancer, stage 2 HTN (hypertension) Hyperlipidemia Hypothyroidism Surgical History Breast, Lumpectomy sentinel lymph node dissection Social History Smoking/Tobacco Use Status: Current every day Tobacco Type: cigarettes Smoking cigarettes per day: 20 Years smoked: 50 Alcohol Intake: never Drug use: Never Substance use type: does not use Do you feel safe at home: Yes Do you feel safe in your relationship?: Yes Exam Const General: cooperative, healthy appearing, comfortable, no acute distress and well developed Nutritional Appearance: average body habitus and well nourished Orientation: alert, awake and oriented x3 HENMT Head: normal to inspection Ears: hearing grossly normal bilaterally Mouth: moist mucous membranes Chest Chest: normal inspection of the chest, normal palpation of entire chest wall and no crepitus Resp Effort & Inspection: normal respiratory effort, able to speak in complete sentences and no respiratory distress Auscultation: clear to auscultation bilaterally, no rales, no rhonchi and no wheezes Cardio Rate: regular rate Rhythm: regular rhythm Heart Sounds: S1 normal and S2 normal GI Inspection: normal to inspection, no edema and non-distended Palpation: soft, no hepatosplenomegaly, not firm, no guarding, not rigid and nontender Auscultation: normal bowel sounds Back/Spine/Pelvis Back: no CVA tenderness Thoracic/Lumbar Spine: thoracic and lumbar spine normal to inspection Skin General skin exam: no rashes or lesions noted Trauma: no lacerations or abrasions Neuro General: alert, awake and oriented x3 Cognition: normal cognition Speech: speech normal Gait: normal gait Extrem General: normal to inspection, normal capillary refill, no pedal edema, no calf tenderness and normal gait Psych Appearance: grossly normal and well kempt Mental Status: mental status grossly normal Speech and Movement: speech and movement normal Course Vital Signs Temperature 36.8 C 02/25/19 08:18 Pulse 101 H 02/25/19 08:18 Respiratory Rate 18 02/25/19 08:18 Blood Pressure 156/76 H 02/25/19 08:18 Pulse Oximetry 95 02/25/19 08:18 Temperature 36.8 C 02/25/19 08:18 Temperature Source Skin 02/25/19 08:18 Pulse 101 H 02/25/19 08:18 Respiratory Rate 22 02/25/19 08:34 Respiratory Effort Non-Labored 02/25/19 08:34 Respiratory Depth Shallow 02/25/19 08:34 Respiratory Pattern Normal 02/25/19 08:34 Blood Pressure 156/76 H 02/25/19 08:18 Blood Pressure Position Supine 02/25/19 08:18 Pulse Oximetry 95 02/25/19 08:18 Oxygen Delivery Method Room Air 02/25/19 08:18 Oxygen Flow Rate 0 02/25/19 08:18 Pain Level 1 02/25/19 08:18
[2019-02-25 09:28] LABS: Troponin I < 0.05 ng/mL (0.00-0.06)
[2019-02-25 09:39] LABS: D-Dimer 530 ng/mlFEU (<500)
== END 2019-02-25 10:18 | disposition home or self-care (01) ==
PROVIDERS: Emergency Provider Physician Assistant; PCP Family Medicine
DX: J44.1 Chronic obstructive pulmonary disease with (acute) exacerbation (principal); R53.83 Other fatigue; R07.9 Chest pain, unspecified; R00.0 Tachycardia, unspecified; I10 Essential (primary) hypertension; F17.210 Nicotine dependence, cigarettes, uncomplicated
CPT/HCPCS: 36415; 93005; 99284; 84484; 85379; 93010

== ENCOUNTER 2019-02-26 11:48 | Outpatient (REF) | payer OTHER, SELFPAY ==
[2019-02-28 12:55] LABS: Alpha 1 Antitrypsin,Serum 137 mg/dL (90-200)
== END 2019-02-26 12:08 ==
LOC: NCHCN 11:48
PROVIDERS: PCP Family Medicine; Visit Provider Nurse Practitioner Family
DX: J44.1 Chronic obstructive pulmonary disease with (acute) exacerbation (principal)
CPT/HCPCS: 82103

== ENCOUNTER 2019-03-05 02:01 | Outpatient (CLI) | payer OTHER, SELFPAY ==
--- NOTE | 2019-03-05 | PFT_ITS ---
PULMONARY FUNCTION TEST REPORT Patient - Kelley Jensen DATE OF SERVICE March 05, 2019 REQUESTING PROVIDER Lisa Zacarias NP INTERPRETATION OF STUDY Spirometry shows moderately severe obstructive airways disease with significant bronchodilator response. LUNG VOLUMES - Lung volumes show no evidence of restriction. There is mild to moderate hyperinflation and air trapping. DIFFUSION CAPACITY- Moderately reduced even when corrected to alveolar volume. AIRWAY RESISTANCE - Normal. IMPRESSION Moderately severe obstructive airways disease with significant bronchodilator response. This is associated with mild to moderate hyperinflation and air trapping, and moderate diffusion defect. When this study was compared to previous one from 12/20/2007, the patient has a 930 cc decline in FVC, FEV1 has declined by 500 cc. Izzy Figueroa M.D. [place]/ DT 03/07/19
[2019-03-05] MEDS: Inhaler, Assist Device 1 EACH MC (16:19)
[2019-03-05] MEDS: Albuterol HFA 18 GM 200 PUFF INH IH (16:19)
== END 2019-03-05 02:21 ==
PROVIDERS: PCP Family Medicine; Visit Provider Nurse Practitioner Family
DX: J44.9 Chronic obstructive pulmonary disease, unspecified (principal); F17.200 Nicotine dependence, unspecified, uncomplicated
CPT/HCPCS: 94060; 94150; 94726; 94729

== ENCOUNTER 2019-04-17 10:15 | Outpatient (REF) | payer OTHER, SELFPAY ==
[2019-04-17 22:19] LABS: TSH (W/Ref FT4) 1.35 uIU/mL (0.36-3.74)
== END 2019-04-17 10:35 ==
LOC: NCHCN 10:15
PROVIDERS: PCP Family Medicine; Visit Provider Nurse Practitioner Family
DX: E03.9 Hypothyroidism, unspecified (principal)
CPT/HCPCS: 84443

== ENCOUNTER 2019-04-30 20:25 | Outpatient (REF) | payer OTHER, SELFPAY ==
[2019-04-30 20:25] LABS: ALT 27 U/L (14-59); AST 16 U/L (15-37); Calculated LDL 115 mg/dL; Cholesterol 196 mg/dL (50-200); Glucose 96 mg/dL (70-100); HDL Cholesterol 45 mg/dL (40-60); Triglyceride 182 mg/dL (30-150)
[2019-04-30 20:54] LABS: Creatine Kinase 33 U/L (26-192)
== END 2019-04-30 20:45 ==
LOC: NCHCN 20:25
PROVIDERS: PCP Family Medicine; Visit Provider Nurse Practitioner Family
DX: E03.9 Hypothyroidism, unspecified (principal); J44.9 Chronic obstructive pulmonary disease, unspecified; F17.200 Nicotine dependence, unspecified, uncomplicated; E78.5 Hyperlipidemia, unspecified
CPT/HCPCS: 80061; 82550; 82947; 84450; 84460

== ENCOUNTER 2019-06-17 11:10 | Outpatient (REF) | payer OTHER, SELFPAY ==
[2019-06-17 22:18] LABS: Calculated LDL 121 mg/dL; Cholesterol 198 mg/dL (<200); HDL Cholesterol 50 mg/dL (40-60); Triglyceride 138 mg/dL (<150)
== END 2019-06-17 11:30 ==
LOC: NCHCN 11:10
PROVIDERS: PCP Family Medicine; Visit Provider Nurse Practitioner Family
DX: E78.5 Hyperlipidemia, unspecified (principal)
CPT/HCPCS: 80061

== ENCOUNTER 2019-08-04 01:34 | Outpatient (CLI) | payer OTHER, SELFPAY ==
--- NOTE | 2019-08-04 12:54 | DI.CTLCSR_ITS ---
EXAM: CT CHEST LUNG CANCER SCREEN CLINICAL HISTORY: PERSONAL H/O SMOKING, Z87.891, 45+ PACK-YEAR HISTORY, QUIT IN 04/2019. TECHNIQUE: Imaging protocol: Axial computed tomography images were obtained and coronal and sagittal reformatted images were created and reviewed. COMPARISON: CHEST - LUNG CANCER SCREENING from 08/28/2017 FINDINGS: Tracheobronchial tree: Patent where visualized. Mediastinum and Ann-Marie: No dominant adenopathy or fluid collection. Pulmonary parenchyma: No consolidation or dominant measurable mass. Moderately severe centrilobular e mphysematous changes are present in the lungs. Scarring is again seen in the left upper lobe. Pleura: No effusion or pneumothorax. Heart: The heart is not dilated. Moderate coronary artery calcification is seen. There is a persiste nt small pericardial effusion. Aorta: Atherosclerosis. No aneurysmal dilatation. Upper abdomen: Unremarkable. Lymph nodes: Within normal limits. Bones:Degenerative changes in the spine. IMPRESSION: 1. No pulmonary nodules. 2. Moderately severe centrilobular emphysematous changes. 3. Stable small pericardial effusion. Moderate coronary artery calcification. 4. Lung RADS Cat 1 - Negative: No nodules and definitely benign nodules. DATA REPOSITORY: All CT scans at this facility are submitted to the National Radiology Data Registry (NRDR) Dose Index Registry (DIR) with the [employer] ([employer]). RADIATION OPTIMIZATION: All CT scans at this facility use at least one of these dose optimization te chniques: automated exposure control; mA and/or kV adjustment per patient size (includes targeted exa ms where dose is matched to clinical indication); or iterative reconstruction.
== END 2019-08-04 01:54 ==
PROVIDERS: PCP Family Medicine; Visit Provider Nurse Practitioner Family
DX: Z12.2 Encounter for screening for malignant neoplasm of respiratory organs (principal); J43.9 Emphysema, unspecified; I31.3 Pericardial effusion (noninflammatory); Z87.891 Personal history of nicotine dependence
CPT/HCPCS: G0297

== ENCOUNTER 2019-08-25 10:46 | Outpatient (REF) | payer OTHER, SELFPAY ==
[2019-08-25 20:14] LABS: ALT 39 U/L (14-59); AST 24 U/L (15-37); HDL Cholesterol 57 mg/dL (40-60); LDL CHOLESTEROL 100 mg/dL (<100)
[2019-08-25 20:25] LABS: Creatine Kinase 46 U/L (26-192)
== END 2019-08-25 11:06 ==
LOC: NCHCN 10:46
PROVIDERS: PCP Family Medicine; Visit Provider Nurse Practitioner Family
DX: E78.5 Hyperlipidemia, unspecified (principal); J44.9 Chronic obstructive pulmonary disease, unspecified; G47.00 Insomnia, unspecified; F41.9 Anxiety disorder, unspecified
CPT/HCPCS: 82550; 83721; 83718; 84450; 84460

== ENCOUNTER 2019-12-02 11:48 | Outpatient (REF) | payer OTHER, SELFPAY ==
[2019-12-02 19:14] LABS: Anion Gap 7.6 mmol/L (3-11); BUN 14 mg/dL (7-18); CO2 25.4 mmol/L (21.0-32.0); CREATININE 0.85 mg/dL (0.55-1.02); Calcium 8.8 mg/dL (8.5-10.1); Chloride 106 mmol/L (98-107); Glucose 94 mg/dL (74-106); Potassium 4.5 mmol/L (3.5-5.1); Sodium 139 mmol/L (136-145)
== END 2019-12-02 12:08 ==
LOC: NCHCN 11:48
PROVIDERS: PCP Family Medicine; Visit Provider Nurse Practitioner Family
DX: I10 Essential (primary) hypertension (principal)
CPT/HCPCS: 80048

== ENCOUNTER 2019-12-04 02:41 | Outpatient (CLI) | payer OTHER, SELFPAY ==
--- NOTE | 2019-12-04 09:54 | DI.RAD_ITS ---
EXAM: XR LUMBAR SPINE COMPLETE CLINICAL HISTORY: LOW BACK PAIN, M54.5, INCREASED LBP WORSE WITH AMB, HX BREAST CA TECHNIQUE: COMPARISON: No exams were available for comparison FINDINGS: Five views were obtained. The intervertebral disc spaces appear fairly well maintained. There are m oderate hypertrophic changes of facet joints of the lower lumbar spine. Mild hypertrophic endplate c hanges of vertebral bodies also noted throughout the lumbar region. There is no evidence spondylolys is or spondylolisthesis. Mild degenerative changes of SI joints noted. No evidence of fracture. IMPRESSION: Moderate degenerative changes as described above. No fracture or destructive lesion identified. If there is a clinical suspicion of metastatic disease in this patient with history of breast carcinoma, additional evaluation with bone scan may be considered.
== END 2019-12-04 03:01 ==
PROVIDERS: PCP Family Medicine; Visit Provider Nurse Practitioner Family
DX: M54.5 Low back pain (principal); Z85.3 Personal history of malignant neoplasm of breast; M47.816 Spondylosis without myelopathy or radiculopathy, lumbar region
CPT/HCPCS: 72110

== ENCOUNTER 2020-02-18 08:56 | Emergency (ER) | payer OTHER, SELFPAY ==
[2020-02-18] VITALS (15 sets, daily range): BP systolic 127–151; BP diastolic 66–85; PULSE 72–80; RESP 18; TEMP 36.7; O2SAT 95–98
--- NOTE | 2020-02-18 09:05 | W.ED.GENAD ---
Discharge Plan Disposition Patient Disposition: HOME Condition: Stable Discharge Details Chief Complaint: HeadInjury Clinical Impression: Laceration of scalp, Ankle fracture, left, Head injury, acute, without loss of consciousness, Fall at home Primary Care Provider: Lisa Zacarias ED Provider: Madison Hutchins Home Meds and New Rx's Prescriptions: Continued simvastatin 40 MG tablet 40 mg PO HS RF: 0 levothyroxine 25 MCG tablet 25 mcg PO DAILY RF: 0 ibuprofen 600 MG tablet 600 mg PO QID PRNRF: 0 Combivent 200 PUFF aerosol 1 - 2 puff Inhalation PRN PRNRF: 0 citalopram 20 mg tablet 20 mg PO HS RF: 0 anastrozole 1 mg Tablet 1 mg PO DAILY AM RF: 0 Discharge Instructions Instructions: Ankle Fracture (ED), Laceration (ED), Head Injury (ED) Additional Instructions: Keep wound clean and dry. Cover wound with bandage if risk of contamination. Otherwise you can keep the wound open to air if resting at home to allow edges to dry and heal. Rest, ice, and elevate the affected area as much as possible. Alternate tylenol and motrin as needed and directed for pain. Call the orthopedist today to schedule a follow-up appointment for reevaluation in the next 1 to 2 weeks. Return to the emergency department in 10 days for staple removal. Return immediately to the emergency department if you develop any worsening or new concerning symptoms such as persistent headaches, vomiting, dizziness or any other concerns. Referrals: Brian Clarke MD [ [facility] STAFF PHYSICIAN] - Discharge Data Discharge Date/Time-TO BE ENTERED AT DEPARTURE: 02/18/20 12:15 Discharge Physician: Madison Hutchins Medical Decision Making 64-year-old female presents with head injury and scalp laceration and left ankle injury after mechanical fall down 8 stairs at home just prior to arrival. No LOC or vomiting. She is hemodynamically stable. No focal deficits. She has a 3 cm laceration to her posterior scalp and tenderness and edema to left lateral ankle. She is neurovascularly intact. Lungs clear. Abdomen soft nontender. No spinal tenderness. No orthopedic deformities noted. Tetanus up-to-date 2018. She was referred for CT head and cervical spine which was negative. A left ankle x-ray noted a fracture to lateral malleolus tip. X-ray was reviewed with Dr. Clarke who thought that this was an avulsion fracture and recommended a walking boot. Patient had been placed initially in a posterior splint which was then removed and replaced with a walking boot per patient request. She declined any medication for pain for home. She was advised on the importance of RICE. She is placed on orthopedic follow-up list. Usual and customary return precautions given prior to discharge. Medical Records Medical records reviewed: Yes I reviewed the patient's medical records. Imaging Data Radiologic Study: Radiologist's impression: CT HEAD CERVICAL SPINE WO CLINICAL HISTORY: s/p fall, lac to back of head. TECHNIQUE: Imaging Protocol: Axial computed tomography images with coronal and sagittal reformatted images were created and reviewed COMPARISON: No exams were available for comparison FINDINGS: Head CT Ventricles and Extra axial spaces: Normal in size and morphology for the patient's age. Hemorrhage: None. Cerebral parenchyma: Normal. Midline shift: None. Brainstem/Cerebellum: Normal. Calvarium: Normal. Visualized Paranasal sinuses/Mastoids: Clear. Cervical Spine CT BONES: Vertebral body heights are maintained. The alignment is normal. There is no evidence of acute fracture. Degenerative disc changes and facet degenerative changes are seen . SOFT TISSUES: No paraspinal hematoma. The airway appears intact. No pneumothorax is seen at the lung apices. IMPRESSION: Head CT: No acute abnormality. C-spine CT: Degenerative changes, no acute abnormality. XR ANKLE LT COMPLETE CLINICAL HISTORY: fall down stairs, L ankle swelling, r/o fx TECHNIQUE: 2D digital imaging was performed. COMPARISON: No exams were available for comparison FINDINGS: There is soft tissue swelling around the malleoli. There is a nondisplaced fracture at tip of the lateral malleolus. There is bony density near the tip of the malleolus which is not definitely acute. No ankle mortise widening or talar dome defect is seen. IMPRESSION: Fracture at the tip of the lateral malleolus. HPI General Mode of arrival: ambulatory. Date/Time Provider Initiated Documentation: 02/18/20 09:04. Limitations to Documentation: no limitations. Information obtained by: patient. HPI Narrative: Pt is a 64yo F who presents to the ED with a complaint of head injury and left ankle pain after fall downstairs at home prior to arrival. Patient states she slipped on the top step at her home and fell down 8 steps striking the back of her head on a wooden stair or railing and twisted her L ankle. She denies LOC or vomiting. She admits to a mild headache. She denies any neck pain, chest pain, abdominal pain, back pain. She is unsure of her tetanus status. Related Data Home Medications Medication Instructions Recorded Confirmed ibuprofen 600 mg PO QID PRN 03/16/15 02/18/20 levothyroxine 25 mcg PO DAILY tab-cap 03/16/15 02/18/20 simvastatin 40 mg PO HS tab-cap 03/16/15 02/18/20 Combivent 1 - 2 puff INHALATION PRN PRN 09/15/15 02/18/20 anastrozole 1 mg PO DAILY AM 09/02/18 02/18/20 citalopram 20 mg PO HS 02/18/20 02/18/20 Allergies Allergy/AdvReac Type Severity Reaction Status Date / Time No Known Allergies Allergy Unverified 02/18/20 10:48 General MANJIT: 3 Review of Systems All systems reviewed & are unremarkable except as noted in HPI and below Constitutional Constitutional: Reports as per HPI, Denies chills and Denies fever(s) Eyes Eyes: Denies blurry vision ENT Ears, Nose, Mouth, and Throat: Denies dizziness, Denies sore throat and Denies throat swelling Cardiovascular Cardiovascular: Denies chest pain and Denies dyspnea Respiratory Respiratory: Denies cough and Denies dyspnea Gastrointestinal Gastrointestinal: Denies abdominal pain, Denies diarrhea and Denies vomiting Genitourinary Genitourinary: Denies hematuria and Denies dysuria Musculoskeletal Musculoskeletal: Denies back pain, Reports joint swelling (L ankle) and Denies numbness Integumentary/Breasts Skin/Breast: Denies lesions and Denies rash Neurologic Neurologic: Denies dizziness, Denies localized weakness and Denies numbness Allergic/Immunologic Allergic/Immunologic: Denies throat swelling [facility] Medical History (Updated 02/18/20 @ 11:47 by Madison Hutchins DO) Breast cancer, stage 2 HTN (hypertension) Hyperlipidemia Hypothyroidism Surgical History Breast, Lumpectomy sentinel lymph node dissection Social History Smoking/Tobacco Use Status: Current-Occasional Tobacco Type: cigarettes Alcohol Intake: never Drug use: Never Substance use type: does not use Do you feel safe at home: Yes Do you feel safe in your relationship?: Yes Exam Const General: cooperative and healthy appearing Orientation: alert and awake [facility] Head: normal to inspection Head images: 1. 3cm straight laceration noted on right posterior occipital head. Ears: hearing grossly normal bilaterally, external ears normal and TM's normal bilaterally General nose exam: external nose normal Face and sinus: normal facial exam Mouth: oral mucosae normal Teeth and gingiva: dentition normal Throat: posterior oropharynx normal Eyes General: appearance normal, both eyes and all related structures Eyelids: eyelids normal Pupils: PERRL EOM: EOM intact bilaterally Neck Neck: normal visual inspection Lymphatic: no lymphadenopathy noted Chest Chest: normal inspection of the chest, normal palpation of entire chest wall, no crepitus and no tenderness Resp Effort & Inspection: normal respiratory effort and able to speak in complete sentences Auscultation: clear to auscultation bilaterally Cardio Rate: regular rate Rhythm: regular rhythm GI Inspection: normal to inspection Palpation: soft, not firm, no guarding, no hepatosplenomegaly, no masses and nontender Auscultation: normal bowel sounds Back/Spine/Pelvis Cervical Spine: cervical ROM normal and No cervical spinal tenderness Thoracic/Lumbar Spine: thoracic and lumbar spine normal to inspection, No thoracic spinal tenderness and No lumbar spinal tenderness Pelvis: no pain with anterior-posterior compression Skin General skin exam: no rashes or lesions noted Neuro General: patient alert and patient awake Cranial Nerves: CN's II-XI intact bilaterally Cognition: normal cognition Speech: speech normal Gait: normal gait Motor: muscle tone normal throughout and strength 5/5 throughout Sensory Exam: no sensory deficits noted Extrem Left lower extremity: ankle Details: tenderness Location: of the lateral malleolus, of the medial malleolus and anteriorly, swelling Details: laterally and medially and abnormal ROM Details: pain with active ROM and pain with passive ROM; no abrasions, no ecchymosis and no crepitus and foot Details: normal capillary refill and vascular exam Details: dorsalis pedis pulse present and posterior tibial pulse present; no tenderness and no ecchymosis Other: No pain with range of motion of bilateral hips, knees, right ankle or foot. Bilateral distal pulses intact. Psych Appearance: grossly normal Mental Status: mental status grossly normal Speech and Movement: speech and movement normal Affect: normal affect Thought Process: normal Procedures Laceration Laceration 1: Site: scalp Side (If applicable): right Size (cm): 3 Description: linear Depth: simple, single layer Pre-repair: wound explored, irrigated extensively and deep structures intact Skin layer closed with: other (marilou) Number of sutures: 4 Orthopedic Splinting/Casting Injury #1: Side: left Lower Extremity Injury Location: ankle Lower Extremity Immobilizer: posterior splint
--- NOTE | 2020-02-18 09:15 | DI.CT_ITS ---
EXAM: CT HEAD CERVICAL SPINE WO CLINICAL HISTORY: s/p fall, lac to back of head. TECHNIQUE: Imaging Protocol: Axial computed tomography images with coronal and sagittal reformatted images were created and reviewed COMPARISON: No exams were available for comparison FINDINGS: Head CT Ventricles and Extra axial spaces: Normal in size and morphology for the patient's age. Hemorrhage: None. Cerebral parenchyma: Normal. Midline shift: None. Brainstem/Cerebellum: Normal. Calvarium: Normal. Visualized Paranasal sinuses/Mastoids: Clear. Cervical Spine CT BONES: Vertebral body heights are maintained. The alignment is normal. There is no evidence of acute fracture. Degenerative disc changes and facet degenerative changes are seen . SOFT TISSUES: No paraspinal hematoma. The airway appears intact. No pneumothorax is seen at the lung apices. IMPRESSION: Head CT: No acute abnormality. C-spine CT: Degenerative changes, no acute abnormality. Incidental RADIATION DOSE DELIVERED: LINK-TO-SR Total DLP DATA REPOSITORY: All CT scans at this facility are submitted to the National Radiology Data Registry (NRDR) Dose Index Registry (DIR) with the [employer] (ACR). RADIATION OPTIMIZATION: All CT scans at this facility use at least one of these dose optimization te chniques: automated exposure control; mA and/or kV adjustment per patient size (includes targeted exa ms where dose is matched to clinical indication); or iterative reconstruction.
--- NOTE | 2020-02-18 09:30 | DI.RAD_ITS ---
EXAM: XR ANKLE LT COMPLETE CLINICAL HISTORY: fall down stairs, L ankle swelling, r/o fx TECHNIQUE: 2D digital imaging was performed. COMPARISON: No exams were available for comparison FINDINGS: There is soft tissue swelling around the malleoli. There is a nondisplaced fracture at tip of the l ateral malleolus. There is bony density near the tip of the malleolus which is not definitely acute. No ankle mortise widening or talar dome defect is seen. IMPRESSION: Fracture at the tip of the lateral malleolus.
[2020-02-18] MEDS: Acetaminophen 500 MG TAB 1000 MG PO (11:51)
== END 2020-02-18 12:15 | disposition home or self-care (01) ==
PROVIDERS: Emergency Provider Physician Assistant; PCP Nurse Practitioner Family
DX: S09.90XA Unspecified injury of head, initial encounter (principal); S01.01XA Laceration without foreign body of scalp, initial encounter; S82.62XA Displaced fracture of lateral malleolus of left fibula, initial encounter for closed fracture; W10.8XXA Fall (on) (from) other stairs and steps, initial encounter; I10 Essential (primary) hypertension
CPT/HCPCS: 12002; 27786; 99282; 70450; 72125; 73610; 99281

== ENCOUNTER 2020-03-02 11:39 | Outpatient (CLI) | payer OTHER, SELFPAY ==
--- NOTE | 2020-03-02 10:45 | DI.RAD_ITS ---
EXAM: XR ANKLE LT COMPLETE CLINICAL HISTORY: f/u fracture TECHNIQUE: 2D digital imaging was performed. COMPARISON: CR XR ANKLE LT COMPLETE from 02/18/2020 FINDINGS: BONES: There has been no change in alignment of the lateral malleolar fracture. No new fracture or d islocation is present. No bony destructive lesion is seen. JOINTS:The ankle mortise is normally aligned. SOFT TISSUE: There is soft tissue swelling about the ankle. IMPRESSION: Stable left ankle. Soft tissue swelling about the ankle. DATA REPOSITORY: RADIATION DOSE DELIVERED:
== END 2020-03-02 11:59 ==
PROVIDERS: PCP Nurse Practitioner Family; Referring Provider Nurse Practitioner Family; Visit Provider Student in an Organized Health Care Education/Training Program
DX: S82.62XA Displaced fracture of lateral malleolus of left fibula, initial encounter for closed fracture (principal)
CPT/HCPCS: 73610

== ENCOUNTER 2020-03-23 18:45 | Outpatient (REF) | payer OTHER, SELFPAY ==
[2020-03-23 19:29] LABS: TSH 0.93 uIU/mL (0.36-3.74)
[2020-03-25 04:36] LABS: Vitamin D 25 Total 33.8 ng/ml (30-100)
== END 2020-03-23 19:05 ==
LOC: NCHCN 18:45
PROVIDERS: PCP Nurse Practitioner Family; Visit Provider Nurse Practitioner Family
DX: E03.9 Hypothyroidism, unspecified (principal); F17.200 Nicotine dependence, unspecified, uncomplicated; J44.9 Chronic obstructive pulmonary disease, unspecified; M54.5 Low back pain
CPT/HCPCS: 82306; 84443

== ENCOUNTER 2020-03-25 09:21 | Outpatient (RCR) | payer OTHER, SELFPAY ==
[2020-03-25 11:35] LABS: ALT 26 U/L (14-59); AST 17 U/L (15-37); Albumin 3.4 g/dL (3.4-5.0); Alkaline Phosphatase 105 U/L (46-116); Anion Gap 7.9 mmol/L (3-11); BUN 10 mg/dL (7-18); Bilirubin, Total 0.3 mg/dL (0.2-1.0); CO2 25.1 mmol/L (21.0-32.0); Chloride 107 mmol/L (98-107); Glucose 139 mg/dL (74-106); Potassium 3.9 mmol/L (3.5-5.1); Sodium 140 mmol/L (136-145); Total Protein 6.6 g/dL (6.4-8.2)
== END 2020-03-31 23:59 | disposition home or self-care (01) ==
LOC: INF 09:21
PROVIDERS: PCP Nurse Practitioner Family; Visit Provider Internal Medicine Hematology & Oncology
DX: C50.412 Malignant neoplasm of upper-outer quadrant of left female breast (principal); Z17.0 Estrogen receptor positive status [ER+]; M85.80 Other specified disorders of bone density and structure, unspecified site; Z79.811 Long term (current) use of aromatase inhibitors
CPT/HCPCS: 36415; 80053

== ENCOUNTER 2020-04-26 00:46 | Outpatient (CLI) | payer OTHER, SELFPAY ==
--- NOTE | 2020-04-26 14:00 | DI.MAMMO_ITS ---
EXAM: MG MAMMO SCREENING 60 MIN DUR CLINICAL HISTORY: PERSONAL H/O BREAST CA,C50.412,Z17.0, TECHNIQUE: Mammograms were interpreted according to the usual protocol including computer analysis w [facility] CAD system, tomosynthesis and C-view imaging. COMPARISON: FINDINGS: Breasts are of moderate density. There is a prior left lumpectomy in the upper outer quadrant. No n ew mass or clumped microcalcification identified in either breast. Current examination is compared w ith previous examinations including November 2014 and there has been no gross interval change in comparis on with the prior studies. IMPRESSION: No specific evidence of malignancy at this time. Routine screening examinations are suggested at yea rly intervals due to the history of breast carcinoma. BI-RADS Category 1 - Negative Breast Density - Category B - Scattered areas of fibroglandular density
== END 2020-04-26 01:06 ==
PROVIDERS: PCP Nurse Practitioner Family; Visit Provider Internal Medicine Hematology & Oncology
DX: Z12.31 Encounter for screening mammogram for malignant neoplasm of breast (principal); Z85.3 Personal history of malignant neoplasm of breast
CPT/HCPCS: 77063; 77067

== ENCOUNTER 2020-06-23 00:56 | Outpatient (CLI) | payer OTHER, SELFPAY ==
--- NOTE | 2020-06-23 14:03 | DI.RAD_ITS ---
EXAM: XR SHOULDER LT COMPLETE 2+V CLINICAL HISTORY: LT SHOULDER PAIN,M25.512 SUBACROMIAL WITH RADIATION DOWN,S/P FALL,? OA,H/O. TECHNIQUE: 2D digital imaging was performed. COMPARISON: No exams were available for comparison FINDINGS: BONES: No acute fracture is present. No bony destructive lesion is seen. JOINTS: No dislocation present. Mild degenerative changes of the acromioclavicular joint. SOFT TISSUE: Normal. IMPRESSION: 1. No acute fracture or dislocation. 2. Mild degenerative changes of the AC joint. DATA REPOSITORY: RADIATION DOSE DELIVERED:
== END 2020-06-23 01:16 ==
PROVIDERS: PCP Nurse Practitioner Family; Visit Provider Nurse Practitioner Family
DX: M19.011 Primary osteoarthritis, right shoulder (principal)
CPT/HCPCS: 73030

== ENCOUNTER 2020-08-10 13:59 | Outpatient (REF) | payer MEDICARE, SELFPAY ==
[2020-08-10 16:02] LABS: ALT 63 U/L (14-59); AST 30 U/L (15-37); Anion Gap 9.7 mmol/L (3-11); BUN 14 mg/dL (7-18); CO2 24.3 mmol/L (21.0-32.0); CREATININE 0.7 mg/dL (0.55-1.02); Calcium 9.5 mg/dL (8.5-10.1); Chloride 105 mmol/L (98-107); Glucose 114 mg/dL (74-106); HDL Cholesterol 50 mg/dL (40-60); LDL CHOLESTEROL 92 mg/dL (<100); Potassium 4.3 mmol/L (3.5-5.1); Sodium 139 mmol/L (136-145)
[2020-08-10 16:22] LABS: Creatine Kinase 54 U/L (26-192)
== END 2020-08-10 14:00 | disposition home or self-care (01) ==
LOC: NCHCN 13:59
PROVIDERS: PCP Nurse Practitioner Family; Visit Provider Nurse Practitioner Family
DX: M25.512 Pain in left shoulder (principal); E78.5 Hyperlipidemia, unspecified; I10 Essential (primary) hypertension
CPT/HCPCS: 80048; 82550; 83721; 83718; 84450; 84460

== ENCOUNTER 2020-09-15 02:19 | Outpatient (CLI) | payer MEDICARE, SELFPAY ==
[2020-09-15 12:44] LABS: ALT 53 U/L (14-59); AST 25 U/L (15-37); Albumin 3.5 g/dL (3.4-5.0); Alkaline Phosphatase 65 U/L (46-116); Anion Gap 7.5 mmol/L (3-11); BUN 12 mg/dL (7-18); Bilirubin, Total 0.4 mg/dL (0.2-1.0); CO2 26.5 mmol/L (21.0-32.0); CREATININE 0.8 mg/dL (0.55-1.02); Chloride 107 mmol/L (98-107); Glucose 109 mg/dL (74-106); Potassium 4.1 mmol/L (3.5-5.1); Sodium 141 mmol/L (136-145); Total Protein 6.9 g/dL (6.4-8.2)
== END 2020-09-15 02:20 | disposition home or self-care (01) ==
PROVIDERS: PCP Nurse Practitioner Family; Visit Provider Internal Medicine Hematology & Oncology
DX: C50.412 Malignant neoplasm of upper-outer quadrant of left female breast (principal); Z17.0 Estrogen receptor positive status [ER+]; M85.88 Other specified disorders of bone density and structure, other site; Z79.811 Long term (current) use of aromatase inhibitors
CPT/HCPCS: 36415; 80053

== ENCOUNTER → 2020-10-05 08:53 | Outpatient (BNVA) | payer MEDICARE, SELFPAY | PROVIDERS: PCP Nurse Practitioner Family; Referring Provider Nurse Practitioner Family; Visit Provider Student in an Organized Health Care Education/Training Program | DX: M75.02 Adhesive capsulitis of left shoulder (principal); M19.012 Primary osteoarthritis, left shoulder | CPT/HCPCS: 99203; 99213 ==

== ENCOUNTER → 2020-12-15 08:48 | Outpatient (BNVA) | payer MEDICARE, SELFPAY | PROVIDERS: PCP Nurse Practitioner Family; Referring Provider Nurse Practitioner Family; Visit Provider Student in an Organized Health Care Education/Training Program | DX: M75.02 Adhesive capsulitis of left shoulder (principal); M19.012 Primary osteoarthritis, left shoulder | CPT/HCPCS: 99213 ==

== ENCOUNTER 2020-12-31 02:49 | Outpatient (CLI) | payer MEDICARE, SELFPAY ==
--- NOTE | 2020-12-31 07:45 | DI.MRI_ITS ---
Exam(s) MR UPPER JOINT LT WO CLINICAL HISTORY: LEFT SHOULDER PAIN, arthritis, adhesive capsulitis, M19.012, M75.02. TECHNIQUE: Multiplanar multisequence MRI was performed. COMPARISON: None FINDINGS: MR examination of the shoulder was performed according to the usual protocol. There is no significant effusion of the glenohumeral joint. Slight fluid in the subacromial subdelto id bursa. Bones and labrum: There are hypertrophic degenerative changes of the acromioclavicular joint with mil d cyst formation of the acromion. There is mild impingement on superior aspect of supraspinatus brianda od. Glenoid labrum appears intact. Rotator cuff: Subscapularis tendon shows normal signal and no evidence of a tear. Supra spinatus tendon shows mildly abnormal signal distally consistent with tendinosis. There may be a small full-thickness tear of the anterior-most aspect of the supraspinatus at the myotendinous saurav ction. Infraspinatus and teres minor tendon show normal signal and no evidence of a tear. Rotator interval: Mildly abnormal signal in the rotator interval without evidence of a discrete tear. Biceps tendon and anchor: Biceps tendon and anchor show normal signal and no evidence of a tear. Sma ll quantity of nonspecific free fluid in the biceps tendon sheath. Biceps tendon is normally positio tree in the bicipital groove. IMPRESSION: Supraspinatus tendinosis and possible small anterior full-thickness tear of the supraspinatus. Mild AC hypertrophic changes appear to cause supraspinatus impingement. Degenerative changes of the acromioclavicular joint. DATA REPOSITORY:
== END 2020-12-31 03:09 ==
PROVIDERS: PCP Nurse Practitioner Family; Visit Provider Student in an Organized Health Care Education/Training Program
DX: M25.812 Other specified joint disorders, left shoulder (principal); M19.012 Primary osteoarthritis, left shoulder; M75.02 Adhesive capsulitis of left shoulder
CPT/HCPCS: 73221

== ENCOUNTER → 2021-01-12 10:10 | Outpatient (BNVA) | payer MEDICARE, SELFPAY | PROVIDERS: PCP Nurse Practitioner Family; Referring Provider Nurse Practitioner Family; Visit Provider Student in an Organized Health Care Education/Training Program | DX: M75.02 Adhesive capsulitis of left shoulder (principal); M19.012 Primary osteoarthritis, left shoulder; M75.22 Bicipital tendinitis, left shoulder; M75.52 Bursitis of left shoulder; S46.012D Strain of muscle(s) and tendon(s) of the rotator cuff of left shoulder, subsequent encounter; X58.XXXD Exposure to other specified factors, subsequent encounter; J44.9 Chronic obstructive pulmonary disease, unspecified; F17.210 Nicotine dependence, cigarettes, uncomplicated | CPT/HCPCS: 20610; 99214; J1030 ==

== ENCOUNTER 2021-02-12 22:11 | Inpatient (IN) | payer MEDICARE, SELFPAY ==
[2021-02-12] VITALS (14 sets, daily range): BP systolic 157; BP diastolic 71; PULSE 106–124; RESP 1–24; TEMP 36.7; O2SAT 88–96
--- NOTE | 2021-02-12 22:15 | RT.EKG_ITS ---
APPROVED REPORT Exam: Resting ECG Reason for Exam: short of breath Patient Location: E HR:108 bpm ECG Measurements Heart Rate 108 AXIS [place] 185 P 12 QRSd 85 QRS 82 QT 327 T -59 QTc 440 Conclusion Sinus tachycardia...rate> 99 Nonspecific T abnormalities, inferior leads...T <-0.10mV, II III aVF New compared to 02/25/2019. No STEMI
[2021-02-12] MEDS: methylPREDNISolone SUCC 125 MG VIAL IVP (22:35)
[2021-02-12] MEDS: Albuterol/Ipratropium 3 ML UPD VIAL 6 ML UPD (22:36)
[2021-02-12 22:42] LABS: Abs Immature Grans 0.04 10^3/uL (0.0-0.06); Absolute Basophil Count 0.03 10^3/uL (0.0-0.2); Absolute Eosinophil Count 0.17 10^3/uL (0.0-0.7); Absolute Lymphocyte Count 1.17 10^3/uL (1.2-3.4); Absolute Monocyte Count 0.68 10^3/uL (0.1-0.8); Absolute Neutrophil Count 8.21 10^3/uL (1.2-6.7); Basophils % 0.3; Eosinophils % 1.7; HCT 41.4 % (36.0-46.0); HGB 13.7 g/dL (11.2-15.7); Immature Grans % 0.4; Lymphocytes % 11.4; MCH 29.8 pg (27.0-33.0); MCHC 33.1 % (32.0-36.0); MPV 10.7 fL (8.0-11.0); Monocytes % 6.6; Neutrophils % 79.6; Nucleated RBC 0 %; Platelet Count 182 10^3/uL (130-400); RDW 12.8 % (11.7-14.6); RDW-SD 42.4 fL
--- NOTE | 2021-02-12 22:45 | DI.CT_ITS ---
Exam(s) CT CHEST PE CTA EXAM: CT CHEST PE CTA CLINICAL HISTORY: acute onset of shortness of breath, hx of copd and. TECHNIQUE: Imaging Protocol: CT angiography of the chest was performed using pulmonary embolus heather col. Multi planar reconstructions were performed. CONTRAST MATERIAL: Intravenous: Omnipaque 350 Contrast volume: 100 cc COMPARISON: CT CT CHEST LUNG CANCER SCREEN from 08/04/2019 FINDINGS: CHEST: PULMONARY ARTERIES: There are no intraluminal filling defects to suggest acute pulmonary emboli. LUNGS: COPD emphysematous changes again noted. Mild increased markings in the dependent aspects of b oth lung addison. No large confluent infiltrates. No pleural effusions.. No pneumothorax. MEDIASTINUM: There is no hilar nor mediastinal adenopathy. Visualized thyroid unremarkable. CARDIAC: Heart size upper normal. There is a small pericardial effusion. Maximum thickness is 7 mil limeters, anteriorly.Caliber of the thoracic aorta is within normal limits. No evidence of dissection . There is no significant shift of the interventricular septum. PARTIALLY VISUALIZED UPPERMOST ABDOMEN: No obvious findings OSSEOUS: No significant osseous lesions.. IMPRESSION: 1. No evidence of acute pulmonary emboli. No evidence of pulmonary infarction.No pleural effusions. 2. Advanced emphysema-COPD changes again noted. Mild increased interstitial markings noted. No pleu ral effusions 3. There is a small pericardial effusion. Maximum thickness is 7 millimeters. RADIATION DOSE DELIVERED: 520.67mGy.cm Total DLP DATA REPOSITORY: All CT scans at this facility are submitted to the National Radiology Data Registry (NRDR) Dose Index Registry (DIR) with the [employer] (ACR). RADIATION OPTIMIZATION: All CT scans at this facility use at least one of these dose optimization te chniques: automated exposure control; mA and/or kV adjustment per patient size (includes targeted exa ms where dose is matched to clinical indication); or iterative reconstruction.
--- NOTE | 2021-02-12 22:49 | ED.GENADUL_ITS ---
Discharge Plan Disposition Patient Disposition: [facility] INPATIENT Condition: Poor Discharge Details Clinical Impression: Pulmonary infiltrates, Asthma exacerbation in COPD, Respiratory failure Admit Date/Time: 02/13/21 00:46 Admit Provider: Vasu Weiner Attending Provider: Vasu Weiner Primary Care Provider: Lisa Zacarias ED Provider: Sacha Robertson Discharge Data Discharge Date/Time-TO BE ENTERED AT DEPARTURE: 02/13/21 01:45 Medical Decision Making <EMMETT Travis - Last Filed: 02/13/21 11:14> Patient is alert and oriented, presented later and states temp of 101 at home for his at 6:00 Patient did not mention this initially Patient was made a PUI, Covid test was ordered Period of time, patient became hypoxic, she is 89% on room air, she was placed on 1 L of oxygen She is feeling symptomatically improved, she has diminished and will likely need admission as she has been weak, hypoxic, and febrile She technically meets SIRS criteria although I do not have a source, suspected to be pneumonia, this was signed out to my attending physician, Dr. Robertson pending CTA Dr. Weiner is aware of the patient and request a phone call once CTA have returned Antibiotics at discretion of my attending physician, Covid swab pending Tolerating oxygen well Full CODE STATUS BNP of 400, appear to be significantly volume overloaded, 500 cc of fluid initiated 650 of Tylenol initiated for fever EKG when compared to prior has some inferior changes, patient does not have chest discomfort with this Care signed out to Dr. Robertson stopped [id number] <Sacha Robertson MD - Last Filed: 02/13/21 00:40> Patient with no PE on CAT scan. She does have bilateral interstitial infiltrate cardiogenic versus noncardiogenic versus infectious. Given fever and lack of chest pain or cardiac history favor infectious. Rapid Covid negative. Ceftriaxone and doxycycline ordered. Patient has already received steroids, nebs and is on supplemental oxygen. Discussed with hospitalist who accepts patient for admission. Lab Data Lab results reviewed: Yes I reviewed the patient's lab results. ECG Data Attestation: I personally reviewed and interpreted this ECG (s) as follows: Prior ECG tracings: available for review Interpretation: see EKG HPI <EMMETT Travis - Last Filed: 02/13/21 11:14> General Mode of arrival: ambulatory . Date/Time Provider Initiated Documentation: 02/12/21 22:23 . Limitations to Documentation: no limitations . Information obtained by: patient . HPI Narrative: This 65-year-old female with history of breast cancer, hypertension, hyperlipidemia, hypothyroidism presents with report of acute onset of shortness of breath and tremulousness at 6:00 this afternoon. She states that this felt like her typical COPD. She denies any chest discomfort, calf pain or swelling. She is Covid vaccinated and denies known exposure to sick contacts. States she still has chills. Smokes tobacco. Denies pleuritic chest pain. Denies prior history of pulmonary embolism. Last chemotherapy was in 2004. Reportedly in remission from her breast cancer. Patient took a dose of inhaler of Combivent prior to arrival with mild alleviation in symptoms. Related Data Home Medications Medication Instructions Recorded Confirmed ibuprofen 600 mg PO QID PRN 03/16/15 02/12/21 levothyroxine 25 mcg PO DAILY tab-cap 03/16/15 02/12/21 Combivent 1 - 2 puff INHALATION PRN PRN 09/15/15 02/12/21 citalopram 20 mg PO HS 02/18/20 02/12/21 rosuvastatin 20 mg tablet 20 mg PO DAILY #1 tab 04/20/20 02/12/21 cholecalciferol (vitamin D3) 25 25 mcg PO DAILY 01/12/21 02/12/21 mcg (1,000 unit) tablet cyanocobalamin (vitamin B-12) 1,000 mcg PO DAILY 01/12/21 02/12/21 1,000 mcg capsule bupropion HCl [Wellbutrin] 75 mg PO BID 02/12/21 02/12/21 Previous Rx's Medication Instructions Recorded rosuvastatin 20 mg tablet 20 mg PO DAILY #1 tab 04/20/20 Allergies Allergy/AdvReac Type Severity Reaction Status Date / Time No Known Allergies Allergy Unverified 02/12/21 22:22 General Stated Complaint: SOB MANJIT: 3 Review of Systems <EMMETT Travis - Last Filed: 02/13/21 11:14> All systems reviewed & are unremarkable except as noted in HPI and below PFS <EMMETT Travis - Last Filed: 02/13/21 11:14> Medical History (Updated 02/13/21 @ 11:14 by EMMETT Travis) Adhesive capsulitis of left shoulder Arthritis of left acromioclavicular joint Breast cancer, stage 2 Contusion of right ankle COPD (chronic obstructive pulmonary disease) with emphysema HTN (hypertension) Hyperlipidemia Hypothyroidism Surgical History (Updated 02/13/21 @ 02:18 by Fanta Arenas) Breast, Lumpectomy H/O: hysterectomy sentinel lymph node dissection Social History Smoking/Tobacco Use Status: Current-Occasional Tobacco Type: cigarettes Smoking risk assessment performed?: Yes Alcohol Intake: never Drug use: Never Substance use type: does not use Current gender identity: female Do you feel safe at home: Yes Do you feel safe in your relationship?: Yes Exam <EMMETT Travis - Last Filed: 02/13/21 11:14> Const General: cooperative and acute distress Orientation: alert and oriented x3 HENMT Mouth: oral mucosae normal Throat: posterior oropharynx normal Eyes Sclera: sclerae normal Neck Neck: no meningeal signs Other: no meningismus Resp Effort & Inspection: cough and tachypneic Auscultation: diminished lung sounds and wheezes Cardio Rate: tachycardic Skin General skin exam: no rashes or lesions noted Neuro General: patient alert, patient oriented x3 and no meningeal signs Speech: speech normal Extrem Other: 1+ edema to bilateral lower extremities, nontender, distal pulses intact Psych Appearance: grossly normal and well kempt Course <EMMETT Travis - Last Filed: 02/13/21 11:14> Vital Signs Vital signs: Vital Signs Temperature 36.7 C 02/12/21 22:17 Pulse 110 H 02/12/21 22:17 Respiratory Rate 18 02/12/21 22:17 Blood Pressure 157/71 H 02/12/21 22:17 Pulse Oximetry 96 02/12/21 22:17 Temperature 36.7 C 02/12/21 22:17 Temperature Source Tympanic 02/12/21 22:17 Pulse 106 H 02/12/21 22:36 Respiratory Rate 24 02/12/21 22:36 Respiratory Effort 02/12/21 22:23 Respiratory Depth Normal 02/12/21 22:23 Respiratory Pattern Tachypnea 02/12/21 22:23 Blood Pressure 157/71 H 02/12/21 22:17 Blood Pressure Position Sitting 02/12/21 22:17 Pulse Oximetry 94 02/12/21 22:36 Oxygen Delivery Method Room Air 02/12/21 22:36 Oxygen Flow Rate 0 02/12/21 22:36 Lab/Test Results Lab/Test Results: Laboratory Tests Range/Units 02/12/21 22:35 WBC (4.4-10.8) 10^3/uL 10.30 RBC (3.93-5.22) 10^6/uL 4.60 Hgb (11.2-15.7) g/dL 13.7 Hct (36.0-46.0) % 41.4 MCV (80-95) fL 90.0 MCH (27.0-33.0) pg 29.8 MCHC (32.0-36.0) % 33.1 RDW (11.7-14.6) % 12.8 Plt Count (130-400) 10^3/uL 182 MPV (8.0-11.0) fL 10.7 Immature Gran % 0.4 Neutrophils % 79.6 Lymphocytes % 11.4 Monocytes % 6.6 Eosinophils % 1.7 Basophils % 0.3 Nucleated RBC % % 0 Absolute Neutrophils (1.2-6.7) 10^3/uL 8.21 H Absolute Lymphocytes (1.2-3.4) 10^3/uL 1.17 L Absolute Monocytes (0.1-0.8) 10^3/uL 0.68 Absolute Eosinophils (0.0-0.7) 10^3/uL 0.17 Absolute Basophils (0.0-0.2) 10^3/uL 0.03 Critical Care Time <EMMETT Travis - Last Filed: 02/13/21 11:14> Critical Care Time Critical Care Time: Yes Total Critical Care Time: 40 Attestation: sepsis: pneumonia, iv antibiotics, iv fluids, supplemental oxygen, nebs, iv steroids telemetry monitoring, labs, ct chest, admission Sign Out <EMMETT Travis - Last Filed: 02/13/21 11:14> Sign Out Data: Sign Out Comment: pending CTA chest and admission, hospitalist aware (would like phone call post cta) Last updated by Aleisha Cuadra PA at 02/13/21 00:11
[2021-02-12 23:25] LABS: Source Nasal/Nares
[2021-02-12 23:26] LABS: ALT 29 U/L (14-59); AST 15 U/L (15-37); Albumin 3.5 g/dL (3.4-5.0); Alkaline Phosphatase 63 U/L (46-116); Anion Gap 9.4 mmol/L (3-11); BUN 10 mg/dL (7-18); Bilirubin, Total 0.6 mg/dL (0.2-1.0); CO2 24.6 mmol/L (21.0-32.0); Calcium 8.8 mg/dL (8.5-10.1); Chloride 106 mmol/L (98-107); Estimated GFR 55.64 (mL/min/1.73m2); Glucose 132 mg/dL (74-106); NT-proBNP 406 pg/mL (<300); Potassium 3.6 mmol/L (3.5-5.1); Sodium 140 mmol/L (136-145); Total Protein 6.8 g/dL (6.4-8.2); Troponin I < 0.05 ng/mL (<0.06)
[2021-02-12 23:44] LABS: Lactate 1.5 mmol/L (0.6-1.4)
[2021-02-13] VITALS (36 sets, daily range): BP systolic 118–155; BP diastolic 60–86; PULSE 74–102; RESP 1–20; TEMP 36.1–37; O2SAT 88–98
[2021-02-13 00:13] LABS: COVID-19 PCR Negative (Negative)
[2021-02-13] MEDS: Omnipaque 350 MG/ML 100 ML BTL IJ (00:15)
[2021-02-13] MEDS: Normal Saline - Diluent 50 ML VIAL IV (00:15)
--- NOTE | 2021-02-13 00:27 | DI.VRAD_ITS ---
PROCEDURE INFORMATION: Exam: CTA Chest With Contrast Exam date and time: 02/12/2021 10:48 PM Age: 65 years old Clinical indication: Patient HX: Acute onset of shortness of breath, HX of copd and small pericardial effusion TECHNIQUE: Imaging protocol: Computed tomographic angiography of the chest with contrast. 3D rendering (Not supervised by radiologist): MIP and/or 3D reconstructed images were created by the technologist. COMPARISON: CT CHEST LUNG CANCER SCREEN 08/04/2019 12:51 PM FINDINGS: Pulmonary arteries: There is no evidence of filling defects within the pulmonary arterial circulation to suggest pulmonary embolism. Aorta: The aorta demonstrates mild atherosclerotic calcification. No evidence aneurysmal dilatation of the thoracic or thoracoabdominal aorta. Great vessels off aortic arch: Mild atherosclerosis of the origins of the great vessels. Lungs: Severe centrilobular emphysematous changes are present. Bilateral lower lobe atelectatic changes present. There are diffuse interstitial infiltrates present. This may represent cardiogenic versus noncardiogenic edema. An acute inflammatory process and/or infectious process/pneumonia are not excluded. Pleural spaces: There is no evidence of pneumothorax. There are no pleural effusions present. Heart: There is a small pericardial effusion present. Lymph nodes: Mild mediastinal lymphadenopathy present. Bones/joints: The skeletal structures and soft tissues show no evidence of fracture or other acute processes. Soft tissues: The soft tissues of the extrathoracic region are unremarkable. Other findings: The upper abdominal viscera are unremarkable. IMPRESSION: 1. There are diffuse interstitial infiltrates present. This may represent cardiogenic versus noncardiogenic edema. An acute inflammatory process and/or infectious process/pneumonia are not excluded. 2. There is no evidence of filling defects within the pulmonary arterial circulation to suggest pulmonary embolism. 3. There is a small pericardial effusion present. 4. There is severe centrilobular emphysema present. This is stable compared to the prior study of 08/04/2019. Dictated and Authenticated by: Dionisio Encinas MD. Ordering:NESS Moraes MD
[2021-02-13] MEDS: cefTRIAXone 1 GM/50 ML BAG IVPB ×2 (00:39→23:13)
--- NOTE | 2021-02-13 00:40 | HPE_ITS ---
Date of service: 02/13/21 Time of Service: 00:40 Assessment and Plan Assessment and plan (1) Hypoxemia: Start date: 02/13/21 Status: Acute Assessment and plan: This is a 55-year-old lady with a history of COPD and CTA of the chest revealing centrilobular emphysema associated with this problem presenting with hypoxemia and fever prior to presentation. CTA did reveal probable bilateral pneumonia for which the patient will be admitted for IV antibiotic therapy in light of her continued oxygen supplement needs. She will also be treated for COPD exacerbation with IV Solu-Medrol and frequent nebulizer treatments. Her hypoxemia did not improve with nebulizer treatments and initiation of IV steroid. She is not on oxygen at home. Patient was slightly tachypneic in the ED but did not have elevated WBC. (2) Pneumonia: Start date: 02/13/21 Status: Acute Assessment and plan: Bilateral infiltrates on CT, IV Rocephin with doxycycline initially and this can be converted to oral therapy as patient improves. Qualifiers: Laterality: bilateral Lung location: unspecified part of lung Pneumonia type: due to unspecified organism Qualified Code(s): J18.9 - Pneumonia, unspecified organism (3) COPD exacerbation: Start date: 02/13/21 Status: Acute Assessment and plan: IV Solu-Medrol with weaning to prednisone orally before discharge. Frequent nebulizer treatments and attempt to wean off oxygen before discharge. (4) COPD (chronic obstructive pulmonary disease) with emphysema: Status: Chronic Assessment and plan: Patient was a previous smoker but not presently. She is not on home oxygen and will be sent home without oxygen after treatment for acute pneumonia. Long-term she should see pulmonology and be reviewed for oxygen supplement patient indicated with her emphysema. She may require oxygen with exertion. Qualifiers: Emphysema type: centrilobular Qualified Code(s): J43.2 - Centrilobular emphysema History of Present Illness History of Present Illness Chief Complaint: Fever with dyspnea Narrative: This is a 65-year-old male with a history of COPD on chronic treatment who had a fever of 101 ?F 6 PM the evening prior to admission. She was evaluated in the ED and was found to be hypoxic with a neighbor pulse oximeter in the 89 to 88% range on room air. She responded to 1 L of O2 per nasal cannula. She did receive respiratory treatments and imaging did reveal bilateral infiltrates most likely infectious with her clinical presentation. She was admitted for O2 supplementation, IV Solu-Medrol for exacerbation of COPD and IV antibiotic therapy. She was COVID-19 testing negative and has had COVID-19 vaccination. At the time I saw the patient she was not tachypneic and had no cough. Patient denied any chest pain or exertional symptoms prior to admission. She denied any peripheral edema or weight gain. The length Review of Systems Narrative: 13 point review of systems otherwise unrevealing or stable. [facility] Medical History (Updated 02/13/21 @ 09:33 by Vasu Weiner) Adhesive capsulitis of left shoulder Arthritis of left acromioclavicular joint Breast cancer, stage 2 Contusion of right ankle COPD (chronic obstructive pulmonary disease) with emphysema HTN (hypertension) Hyperlipidemia Hypothyroidism Surgical History (Updated 02/13/21 @ 02:18 by Fanta Arenas) Breast, Lumpectomy H/O: hysterectomy sentinel lymph node dissection Social History Smoking/Tobacco Use Status: Current-Occasional Tobacco Type: cigarettes Smoking risk assessment performed?: Yes Alcohol Intake: never Drug use: Never Substance use type: does not use Current gender identity: female Do you feel safe at home: Yes Do you feel safe in your relationship?: Yes Meds Allergies and Home Medications Allergies Allergy/AdvReac Type Severity Reaction Status Date / Time No Known Allergies Allergy Unverified 02/12/21 22:22 Home Medications Medication Instructions Recorded Confirmed Type ibuprofen 600 mg PO QID PRN 03/16/15 02/12/21 History levothyroxine 25 mcg PO DAILY tab-cap 03/16/15 02/12/21 History Combivent 1 - 2 puff INHALATION PRN PRN 09/15/15 02/12/21 History citalopram 20 mg PO HS 02/18/20 02/12/21 History rosuvastatin 20 mg tablet 20 mg PO DAILY #1 tab 04/20/20 02/12/21 Rx cholecalciferol (vitamin D3) 25 25 mcg PO DAILY 01/12/21 02/12/21 History mcg (1,000 unit) tablet cyanocobalamin (vitamin B-12) 1,000 mcg PO DAILY 01/12/21 02/12/21 History 1,000 mcg capsule bupropion HCl [Wellbutrin] 75 mg PO BID 02/12/21 02/12/21 History Exam Narrative Exam Narrative: General: Patient appears appropriate for age, in no acute distress with normal full sentences during conversation. She is alert and oriented x3. She is not tachypneic. HEENT: Normocephalic, mild hirsutism over upper lip and chin, eyes with pupils equal and reactive to light symmetrically, extraocular movement intact and s clera anicteric. Oropharynx with moist mucosa. Neck: Supple without JVD. Back: Normal posture without CVA tenderness. Lungs: Decreased aeration diffusely without focal rales or rhonchi. No expiratory wheeze but slightly increased expiratory phase. Heart: Regular rate and rhythm with no murmurs or gallops appreciated. Breast: Exam deferred. Abdomen: Obese contour, soft and nontender to palpation without palpable hepatosplenomegaly. Genitalia/rectal: Exam deferred. Extremities: Without clubbing, cyanosis or pitting edema. Peripheral pulses intact. Skin: Normal color, warm and dry. Normal turgor. Neuro: Cranial nerves II through XII grossly intact, no focalizing motor deficits. Psych: Normal mood and affect, no abnormal thought processes. Remote and recent memory intact. Results Imaging Imaging Studies: Exam: CTA Chest With Contrast Exam date and time: 02/12/2021 10:48 PM Age: 65 years old Clinical indication: Patient HX: Acute onset of shortness of breath, HX of copd and small pericardial effusion TECHNIQUE: Imaging protocol: Computed tomographic angiography of the chest with contrast. 3D rendering (Not supervised by radiologist): MIP and/or 3D reconstructed images were created by the technologist. COMPARISON: CT CHEST LUNG CANCER SCREEN 08/04/2019 12:51 PM FINDINGS: Pulmonary arteries: There is no evidence of filling defects within the pulmonary arterial circulation to suggest pulmonary embolism. Aorta: The aorta demonstrates mild atherosclerotic calcification. No evidence aneurysmal dilatation of the thoracic or thoracoabdominal aorta. Great vessels off aortic arch: Mild atherosclerosis of the origins of the great vessels. Lungs: Severe centrilobular emphysematous changes are present. Bilateral lower lobe atelectatic changes present. There are diffuse interstitial infiltrates present. This may represent cardiogenic versus noncardiogenic edema. An acute inflammatory process and/or infectious process/pneumonia are not excluded. Pleural spaces: There is no evidence of pneumothorax. There are no pleural effusions present. Heart: There is a small pericardial effusion present. Lymph nodes: Mild mediastinal lymphadenopathy present. Bones/joints: The skeletal structures and soft tissues show no evidence of fracture or other acute processes. Soft tissues: The soft tissues of the extrathoracic region are unremarkable. Other findings: The upper abdominal viscera are unremarkable. IMPRESSION: 1. There are diffuse interstitial infiltrates present. This may represent cardiogenic versus noncardiogenic edema. An acute inflammatory process and/or infectious process/pneumonia are not excluded. 2. There is no evidence of filling defects within the pulmonary arterial circulation to suggest pulmonary embolism. 3. There is a small pericardial effusion present. 4. There is severe centrilobular emphysema present. This is stable compared to the prior study of 08/04/2019. Labs Result diagrams: 02/13/21 06:47 02/13/21 06:47 Labs: Laboratory Results - last 24 hr 02/12/21 02/12/21 02/12/21 22:35 22:35 23:20 WBC 10.30 RBC 4.60 Hgb 13.7 Hct 41.4 MCV 90.0 MCH 29.8 MCHC 33.1 RDW 12.8 Plt Count 182 MPV 10.7 Immature Gran % 0.4 Neutrophils % 79.6 Lymphocytes % 11.4 Monocytes % 6.6 Eosinophils % 1.7 Basophils % 0.3 Nucleated RBC % 0 Absolute Neutrophils 8.21 H Absolute Lymphocytes 1.17 L Absolute Monocytes 0.68 Absolute Eosinophils 0.17 Absolute Basophils 0.03 VBG Lactate Sodium 140 Potassium 3.6 Chloride 106 Carbon Dioxide 24.6 Anion Gap 9.4 BUN 10 Creatinine 1.0 Estimated GFR/1.73 m2 55.64 Glucose 132 H Calcium 8.8 Total Bilirubin 0.6 AST 15 ALT 29 Alkaline Phosphatase 63 Troponin I < 0.05 NT-Pro-B Natriuret Pep 406 H Total Protein 6.8 Albumin 3.5 COVID-19 Source Nasal/Nares SARS-CoV-2 (PCR) Negative 02/12/21 23:43 WBC RBC Hgb Hct MCV MCH MCHC RDW Plt Count MPV Immature Gran % Neutrophils % Lymphocytes % Monocytes % Eosinophils % Basophils % Nucleated RBC % Absolute Neutrophils Absolute Lymphocytes Absolute Monocytes Absolute Eosinophils Absolute Basophils VBG Lactate 1.5 H Sodium Potassium Chloride Carbon Dioxide Anion Gap BUN Creatinine Estimated GFR/1.73 m2 Glucose Calcium Total Bilirubin AST ALT Alkaline Phosphatase Troponin I NT-Pro-B Natriuret Pep Total Protein Albumin COVID-19 Source SARS-CoV-2 (PCR) Last Vital Signs Temp 36.7 C 02/12/21 22:17 Pulse 94 H 02/13/21 00:31 Resp 24 02/12/21 22:36 BP 155/65 H 02/13/21 00:31 Pulse Ox 94 02/13/21 00:33
[2021-02-13] MEDS: DOXYCYCLINE 100 MG in Normal Saline 100 ML IVPB ×2 (01:12→13:56)
[2021-02-13 01:46] LABS: Troponin I < 0.05 ng/mL (<0.06)
[2021-02-13] MEDS: Normal Saline 1,000 ML 100 ML IV ×3 (02:47→23:21)
[2021-02-13 03:58] LABS: Bilirubin Negative (Negative); Blood Trace-intact (Negative); Clarity Clear (Clear); Glucose Negative (Negative); Ketones Negative (Negative); Leukocyte Esterase Negative (Negative); Nitrite Negative (Negative); Specific Gravity <= 1.005 (1.005-1.025); Urobilinogen 0.2 EU/dL (Up TO 0.2)
[2021-02-13 04:06] LABS: Bacteria Negative HPF (Negative); C & S Indicated? No; Casts Negative LPF (Negative); Crystals Negative HPF (Negative); Epithelial Cells Few HPF (Negative); Mucus Negative (Negative); RBC 0-2 HPF (0-2); WBC Negative HPF (0-5)
[2021-02-13] MEDS: Levothyroxine 25 MCG TAB PO (05:55)
[2021-02-13] MEDS: methylPREDNISolone SUCC 125 MG VIAL 80 MG IVP ×3 (05:56→23:12)
[2021-02-13 07:19] LABS: Abs Immature Grans 0.04 10^3/uL (0.0-0.06); Absolute Basophil Count 0.02 10^3/uL (0.0-0.2); Absolute Lymphocyte Count 0.71 10^3/uL (1.2-3.4); Absolute Monocyte Count 0.13 10^3/uL (0.1-0.8); Absolute Neutrophil Count 7.62 10^3/uL (1.2-6.7); Basophils % 0.2; HCT 39.6 % (36.0-46.0); HGB 13.2 g/dL (11.2-15.7); Immature Grans % 0.5; Lymphocytes % 8.3; MCH 29.7 pg (27.0-33.0); MCHC 33.3 % (32.0-36.0); MPV 11.2 fL (8.0-11.0); Monocytes % 1.5; Neutrophils % 89.5; Nucleated RBC 0 %; Platelet Count 186 10^3/uL (130-400); RBC 4.45 10^6/uL (3.93-5.22); RDW 12.9 % (11.7-14.6); RDW-SD 42.4 fL; WBC 8.52 10^3/uL (4.4-10.8)
[2021-02-13] MEDS: Pantoprazole 40 MG TABCR PO (07:25)
[2021-02-13] MEDS: Cyanocobalamin 500 MCG TAB 1000 MCG PO (07:35)
[2021-02-13] MEDS: Cholecalciferol (Vitamin D3) 1,000 UNIT TAB 1000 UNITS PO (07:35)
[2021-02-13] MEDS: Enoxaparin 40 MG/0.4 ML SYR SC (07:35)
[2021-02-13 07:41] LABS: ALT 29 U/L (14-59); AST 13 U/L (15-37); Albumin 3.2 g/dL (3.4-5.0); Alkaline Phosphatase 59 U/L (46-116); Anion Gap 11.9 mmol/L (3-11); BUN 9 mg/dL (7-18); Bilirubin, Total 0.5 mg/dL (0.2-1.0); CO2 21.1 mmol/L (21.0-32.0); CREATININE 0.9 mg/dL (0.55-1.02); Calcium 8.4 mg/dL (8.5-10.1); Chloride 108 mmol/L (98-107); Glucose 185 mg/dL (74-106); Potassium 3.9 mmol/L (3.5-5.1); Sodium 141 mmol/L (136-145); Total Protein 6.2 g/dL (6.4-8.2)
[2021-02-13] MEDS: buPROPion 75 MG TAB PO ×2 (07:45→20:08)
[2021-02-13 07:50] LABS: Magnesium 1.8 mg/dL (1.8-2.4); TSH (W/Ref FT4) 0.56 uIU/mL (0.36-3.74)
[2021-02-13] MEDS: Albuterol/Ipratropium 3 ML UPD VIAL UPD ×3 (08:13→20:07)
--- NOTE | 2021-02-13 16:07 | W.PM.PROGNOT ---
Date of Service Date of service: 02/13/21 Time of Service: 16:07 Assessment and Plan Assessment and plan (1) Pneumonia: Status: Acute Assessment and plan: Bilateral infiltrates on CT, IV Rocephin with doxycycline initially and this can be converted to oral therapy as patient improves. Will transition to oral antibiotics and prednisone tomorrow and if she remains on room air and not having dyspnea or significant bronchospasms then will discharge home tomorrow Qualifiers: Pneumonia type: due to unspecified organism Laterality: bilateral Lung location: unspecified part of lung Qualified Code(s): J18.9 - Pneumonia, unspecified organism (2) COPD exacerbation: Status: Acute Assessment and plan: cont. iv solumedrol today and transition to oral prednisone tomorrow and change parenteral antibiotics to oral and hopefully discharge home tomorrow. (3) COPD (chronic obstructive pulmonary disease) with emphysema: Status: Chronic Assessment and plan: Patient is no longer a smoke. I will check ambulatory pulse oximetry prior to discharge. I will set her up for outpatient follow up w/ pulmonary and have her get PFT's in couple weeks. She may be candidate for pulmonary rehab. Qualifiers: Emphysema type: centrilobular Qualified Code(s): J43.2 - Centrilobular emphysema Subjective Subjective Interval history since last seen: 65-year-old female with a past medical history of COPD not on home oxygen therapy who is had prior COVID-19 vaccination presented symptoms including a fever 101 degrees (taken at home but not confirmed here, admission temp was 36.7), shortness of breath and rigors onset occurring at 6 PM on the evening she presented to the emergency department yesterday. Patient has a comorbidities including stage II breast cancer, essential hypertension, hyperlipidemia, hypothyroidism. Breast cancer reportedly in remission. Last chemotherapy in 2004. On arrival to the emergency department she was noted to be hypoxemic with a pulse oximetry of 89%. Evaluation in the emergency department included EKG, routine labs, CTA of the chest. CTA of the chest reported showing diffuse interstitial infiltrates with no evidence of PE. Patient has severe centrilobular emphysema similar to prior study from several weeks or 2020. EKG demonstrated sinus tachycardia rate of 108 bpm with nonspecific T wave abnormalities in the inferior leads. Troponin I level was less than 0.05 on admission and repeat level last night remained less than 0.05. proBNP was minimally elevated at 406 similar to prior levels in January 2019. CMP was unremarkable with normal renal function with a BUN of 9 creatinine 0.9. Carbon dioxide level is normal at 21.1. Blood lactate was mildly elevated at 1.5. CBC showed no anemia polycythemia with a hemoglobin 13.2 g hematocrit 39%. Count leukocyte count was normal at 8500. HS blood cultures were obtained and treatment was started with aerosolized bronchodilators. She was given 2 DuoNeb treatments emergency department and started on broad-spectrum antibiotics including ceftriaxone 1 g IV and doxycycline 100 mg IV and begun on parenteral corticosteroids including Solu-Medrol [address] Weiner saw her for the hospitalist service and admitted her to the medical/surgical floor she was kept on supplemental nasal cannula and started on parenteral antibiotics. She was kept on ceftriaxone 1 g IV daily along with doxycycline 100 mg IV every 12 hours and Solu-Medrol 80 mg IV every 8 hours. Exam Narrative Exam Narrative: patient is alert and oriented; no cough or dyspnea and not requiring oxygen. SPO2 is 92% on RA Lungs w/ some basilar rales at right base; no rhonchi and no wheezing Heart: RRR Abdomen soft and nontender Extremities: no cyanosis or edema Neuro: grossly intact; no focal deficits Objective Last Vital Signs Temp 36.7 C 02/13/21 12:21 Pulse 97 H 02/13/21 14:47 Resp 17 02/13/21 14:32 BP 118/86 02/13/21 12:21 Pulse Ox 98 02/13/21 14:32 Laboratory Results - last 24 hr 02/12/21 02/12/21 02/12/21 22:35 22:35 23:20 WBC 10.30 RBC 4.60 Hgb 13.7 Hct 41.4 MCV 90.0 MCH 29.8 MCHC 33.1 RDW 12.8 Plt Count 182 MPV 10.7 Immature Gran % 0.4 Neutrophils % 79.6 Lymphocytes % 11.4 Monocytes % 6.6 Eosinophils % 1.7 Basophils % 0.3 Nucleated RBC % 0 Absolute Neutrophils 8.21 H Absolute Lymphocytes 1.17 L Absolute Monocytes 0.68 Absolute Eosinophils 0.17 Absolute Basophils 0.03 VBG Lactate Sodium 140 Potassium 3.6 Chloride 106 Carbon Dioxide 24.6 Anion Gap 9.4 BUN 10 Creatinine 1.0 Estimated GFR/1.73 m2 55.64 Glucose 132 H Calcium 8.8 Magnesium Total Bilirubin 0.6 AST 15 ALT 29 Alkaline Phosphatase 63 Troponin I < 0.05 NT-Pro-B Natriuret Pep 406 H Total Protein 6.8 Albumin 3.5 TSH Urine Color Urine Clarity Urine pH Ur Specific [place] Urine Protein Urine Ketones Urine Blood Urine Nitrite Urine Bilirubin Urine Urobilinogen Ur Leukocyte Esterase Urine RBC Urine WBC Ur Epithelial Cells Urine Crystals Urine Bacteria Urine Casts Urine Mucus Ur Culture Indicated? Urine Glucose COVID-19 Source Nasal/Nares SARS-CoV-2 (PCR) Negative 02/12/21 02/13/21 02/13/21 23:43 01:20 03:40 WBC RBC Hgb Hct MCV MCH MCHC RDW Plt Count MPV Immature Gran % Neutrophils % Lymphocytes % Monocytes % Eosinophils % Basophils % Nucleated RBC % Absolute Neutrophils Absolute Lymphocytes Absolute Monocytes Absolute Eosinophils Absolute Basophils VBG Lactate 1.5 H Sodium Potassium Chloride Carbon Dioxide Anion Gap BUN Creatinine Estimated GFR/1.73 m2 Glucose Calcium Magnesium Total Bilirubin AST ALT Alkaline Phosphatase Troponin I < 0.05 NT-Pro-B Natriuret Pep Total Protein Albumin TSH Urine Color Yellow Urine Clarity Clear Urine pH 6.0 Ur Specific [place] <= 1.005 Urine Protein Negative Urine Ketones Negative Urine Blood Trace-intact H Urine Nitrite Negative Urine Bilirubin Negative Urine Urobilinogen 0.2 Ur Leukocyte Esterase Negative Urine RBC 0-2 Urine WBC Negative Ur Epithelial Cells Few Urine Crystals Negative Urine Bacteria Negative Urine Casts Negative Urine Mucus Negative Ur Culture Indicated? No Urine Glucose Negative COVID-19 Source SARS-CoV-2 (PCR) 02/13/21 02/13/21 02/13/21 06:47 06:47 06:47 WBC 8.52 RBC 4.45 Hgb 13.2 Hct 39.6 MCV 89.0 MCH 29.7 MCHC 33.3 RDW 12.9 Plt Count 186 MPV 11.2 H Immature Gran % 0.5 Neutrophils % 89.5 Lymphocytes % 8.3 Monocytes % 1.5 Eosinophils % 0.0 Basophils % 0.2 Nucleated RBC % 0 Absolute Neutrophils 7.62 H Absolute Lymphocytes 0.71 L Absolute Monocytes 0.13 Absolute Eosinophils 0.00 Absolute Basophils 0.02 VBG Lactate Sodium 141 Potassium 3.9 Chloride 108 H Carbon Dioxide 21.1 Anion Gap 11.9 H BUN 9 Creatinine 0.9 Estimated GFR/1.73 m2 >= 60.00 Glucose 185 H Calcium 8.4 L Magnesium 1.8 Total Bilirubin 0.5 AST 13 L ALT 29 Alkaline Phosphatase 59 Troponin I NT-Pro-B Natriuret Pep Total Protein 6.2 L Albumin 3.2 L TSH 0.56 Urine Color Urine Clarity Urine pH Ur Specific [place] Urine Protein Urine Ketones Urine Blood Urine Nitrite Urine Bilirubin Urine Urobilinogen Ur Leukocyte Esterase Urine RBC Urine WBC Ur Epithelial Cells Urine Crystals Urine Bacteria Urine Casts Urine Mucus Ur Culture Indicated? Urine Glucose COVID-19 Source SARS-CoV-2 (PCR) Reviewed Pertinent PMH: Yes Objective Narrative Objective Narrative: morning labs, admission chest CT reviewed.
[2021-02-13] MEDS: Rosuvastatin 10 MG TAB 20 MG PO (20:08)
[2021-02-13] MEDS: Normal Saline Flush 10 ML SYR IVP (23:11)
[2021-02-13] MEDS: Citalopram 20 MG TAB PO (23:12)
[2021-02-14] VITALS (7 sets, daily range): BP systolic 102–119; BP diastolic 62–70; PULSE 90–113; RESP 16–20; TEMP 36.1–36.8; O2SAT 89–95
[2021-02-14] MEDS: Albuterol/Ipratropium 3 ML UPD VIAL UPD ×2 (01:53→05:59)
[2021-02-14] MEDS: DOXYCYCLINE 100 MG in Normal Saline 100 ML IVPB (01:54)
[2021-02-14] MEDS: methylPREDNISolone SUCC 125 MG VIAL 80 MG IVP (05:59)
[2021-02-14] MEDS: Levothyroxine 25 MCG TAB PO (06:00)
[2021-02-14] MEDS: Pantoprazole 40 MG TABCR PO (07:17)
[2021-02-14 07:56] LABS: HCT 36.7 % (36.0-46.0); HGB 12.2 g/dL (11.2-15.7); MCH 30.3 pg (27.0-33.0); MCHC 33.2 % (32.0-36.0); MCV 91.1 fL (80-95); MPV 11.4 fL (8.0-11.0); Platelet Count 178 10^3/uL (130-400); RBC 4.03 10^6/uL (3.93-5.22); RDW 13.2 % (11.7-14.6); RDW-SD 44.2 fL; WBC 16.64 10^3/uL (4.4-10.8)
[2021-02-14] MEDS: buPROPion 75 MG TAB PO (08:08)
[2021-02-14] MEDS: Cholecalciferol (Vitamin D3) 1,000 UNIT TAB 1000 UNITS PO (08:08)
[2021-02-14] MEDS: Cyanocobalamin 500 MCG TAB 1000 MCG PO (08:08)
[2021-02-14] MEDS: Enoxaparin 40 MG/0.4 ML SYR SC (08:09)
[2021-02-14] MEDS: Cefdinir 300 MG CAP 600 MG PO (11:05)
[2021-02-14] MEDS: predniSONE 20 MG TAB 40 MG PO (11:05)
[2021-02-14] MEDS: Furosemide 20 MG TAB PO (11:05)
--- NOTE | 2021-02-14 13:20 | DSE_ITS ---
Date of service: 02/14/21 Time of Service: 13:20 DS: Diagnosis Discharge Diagnosis (1) Pneumonia: Status: Suspected Asessment and Plan: Pneumonia was suspected on admission based on her self-reported temperature of 101 degrees and chills and rigors as well as a virtual radiology reading of her CT scan showing diffuse interstitial infiltrates. Over read on her CT scan was read as showing advanced emphysema COPD changes with mild increased interstitial markings with no pleural effusions. I think the patient actually has an acute purulent bronchitis in the setting of COPD exacerbation. She made a remarkable turnaround with low flow supplemental oxygen along with scheduled aerosolized bronchodilators and IV corticosteroids and IV antibiotics. This point should be treated for COPD exacerbation bronchitis with a 5-day course of prednisone and Omnicef. (2) COPD exacerbation: Status: Acute (3) COPD (chronic obstructive pulmonary disease) with emphysema: Status: Chronic Asessment and Plan: Orders been placed for follow-up pulmonary function test in 2 weeks. Is recommended she be referred to pulmonary medicine for consultation for optimization of her COPD. For now should be maintained on her current dose of her Advair. I think she would benefit from the addition of Spiriva. Discharge Plan Disposition Patient Disposition: HOME Condition: Good Discharge Details Reason For Visit: Bilateral pneumonia,Hypoxemia,COPD exacerbation Admit Date/Time: 02/13/21 00:46 Admit Provider: Vasu Weiner Attending Provider: Vasu Weiner Primary Care Provider: Lisa Zacarias Hospital Course Hospital Course: 65-year-old female with a history of COPD not requiring home oxygen and who previously been vaccinated against COVID-19 presented to the emergency department with reported fever of 101 degrees at home but was found to be afebrile here in the hospital. She was also having symptoms of shortness of breath and rigors. She has a past history of essential hypertension, hyperlipidemia, hypothyroidism, stage II breast cancer which is in remission since her last chemotherapy being in 2004. On evaluation in the ER she was found to be hypoxemic with a pulse oximetry 89% and CT of her chest showed diffuse interstitial infiltrates with no pulmonary embolism. She has severe centrilobular emphysema similar to prior studies. EKG demonstrates sinus tachycardia with nonspecific T wave abnormalities but with normal troponin I levels. Patient had a blood lactate that was mildly elevated at 1.5 and her CBC showed a normal leukocyte count 8500. Blood cultures were obtained and she was started on aerosolized bronchodilators IV corticosteroids and IV antibiotics including ceftriaxone 1 g IV and doxycycline 100 mg IV. Patient did well overnight was weaned off of oxygen and on the day of discharge she was ambulating around the hospital floor without supplemental oxygen. Amatory pulse oximetry showed her lowest saturation spent 89 to 90% which she quickly recovered upon rest. She had no symptoms of dyspnea. Blood culture showed no growth. Patient was transitioned to oral prednisone 40 mg daily and transition from ceftriaxone to Omnicef 600 mg daily. Patient was requesting to be discharged home as the patient was no longer symptomatic and not having any bronchospasm or dyspnea is felt that she be safely treated as an outpatient with oral corticosteroids and inhaled bronchodilators including her Combivent as well as her maintenance therapy with Advair Diskus. She was discharged home on a 5- day course of prednisone 40 mg daily along with 5 days of Omnicef. Patient pulmonary function tests were ordered to be done in 2 weeks. She should follow- up with her primary care provider in the next week. It is recommended that she be referred to pulmonary for consultation on management of her COPD. Home Meds and New Rx's Prescriptions: New prednisone 20 mg tablet 40 mg PO DAILY 5 Days Qty: 10 RF: 0 cefdinir 300 mg capsule 300 mg PO BID 5 Days Qty: 10 RF: 0 Continued rosuvastatin 20 mg tablet 20 mg PO DAILY Qty: 1 RF: 0 cyanocobalamin (vitamin B-12) 1,000 mcg capsule 1,000 mcg PO DAILY RF: 0 cholecalciferol (vitamin D3) 25 mcg (1,000 unit) tablet 25 mcg PO DAILY RF: 0 levothyroxine 25 MCG tablet 25 mcg PO DAILY RF: 0 ibuprofen 600 MG tablet 600 mg PO QID PRNRF: 0 Combivent 200 PUFF aerosol 1 - 2 puff Inhalation PRN PRNRF: 0 citalopram 20 mg tablet 20 mg PO HS RF: 0 bupropion HCl 75 mg Tablet 75 mg PO BID RF: 0 fluticasone propion-salmeterol [Advair Diskus] 250-50 mcg/dose blister with device 1 inh INHALATION BID RF: 0 Discharge Instructions Instructions: Chronic Lung Disease and Infection Prevention (DC), Energy Conservation Techniques (DC), Nutrition Guidelines for People with COPD (DC) Stand Alone Forms: Nursing Discharge Form Referrals: Lisa Zacarias [Primary Care Provider] - 03/01/21 2:15 pm Activity:: Activity as Tolerated Equipment/Supplies:: No Equipment Needed Diet:: Normal Diet Discharge Orders Discharge Orders: Discharge Order (Routine); Ordered 02/14/21 Ordered By: Chevy Ansari Other Ambulatory Orders: PFT ([facility]/Volumes) (Outpt) (ONCE) Timeframe: [id number] Facility: [facility] - Location: Respiratory Therapy Ordered By: Chevy Ansari Discharge Data Discharge Date/Time-TO BE ENTERED AT DEPARTURE: 02/14/21 13:49 DS: Summary Time Spent with Patient providing and/or coordinating discharge services: Less than 30 minutes Status at Discharge Functional status at discharge: independent ambulation Overall status at discharge: patient is progressing back to baseline Mental Status: mental status grossly normal Speech and Movement: speech and movement normal Mood: congruent mood Affect: normal affect Exam Narrative Exam Narrative: Patient white female sitting up in her bed alert oriented person place time circumstance. She is not currently wearing any oxygen pulse oximetry is 94% on room air at rest. Lungs are clear to auscultation even with forceful exhalation. No rhonchi or rales are heard. No wheezing. Heart is regular rate and rhythm Abdomen soft nontender nondistended normal bowel sounds Extremities without peripheral cyanosis or edema. Neuro exam grossly intact Psych Mental Status: mental status grossly normal Speech and Movement: speech and movement normal Mood: congruent mood Affect: normal affect DS: Data Vitals/I&O Vitals and I&O: Vital Signs Temperature 36.5 C 02/14/21 11:47 Temperature Source Tympanic 02/14/21 11:47 Pulse 90 02/14/21 11:47 Pulse Rhythm Regular 02/14/21 10:44 Respiratory Rate 18 02/14/21 11:47 Respiratory Effort Non-Labored 02/14/21 10:44 Respiratory Depth Normal 02/14/21 10:44 Respiratory Pattern Normal 02/14/21 10:44 Blood Pressure 119/70 02/14/21 11:47 Blood Pressure Mean 88 02/13/21 01:31 Blood Pressure Position Sitting 02/12/21 22:17 Pulse Oximetry 94 02/14/21 11:47 Oxygen Delivery Method Room Air 02/14/21 11:47 Oxygen Flow Rate 0 02/14/21 11:47 Pain Level 0 02/14/21 10:44 Comment 02/13/21 12:21 Intake & Output 02/13/21 02/14/21 02/14/21 23:59 11:59 23:59 Intake Total 4500 / 5315 660 / 660 Output Total 1475 / 2275 1100 / 1100 Balance 3025 / 3040 -440 / -440 Weight 98.1 kg Intake: IV 2050 / 2265 Oral 2450 / 3050 660 / 660 Output: Urine 1475 / 2275 1100 / 1100 Other: Urine Color Light Yee Yellow Urine Appearance Clear Clear Urine Odor Normal Normal Stool Size Small Stool Characteristics Hard Voiding Methods Toilet Toilet Data Completed and Pending Labs on day of discharge: Labs from last 24 hours 02/14/21 07:10 WBC 16.64 H D RBC 4.03 Hgb 12.2 Hct 36.7 MCV 91.1 MCH 30.3 MCHC 33.2 RDW 13.2 Plt Count 178 MPV 11.4 H Preliminary micro results at discharge 02/12/21 23:35 Blood Culture - Preliminary Blood NO GROWTH 24 HOURS 02/12/21 23:25 Blood Culture - Preliminary Blood NO GROWTH 24 HOURS [facility] Medical History (Updated 02/14/21 @ 20:11 by Chevy Ansari) Adhesive capsulitis of left shoulder Arthritis of left acromioclavicular joint Breast cancer, stage 2 Contusion of right ankle COPD (chronic obstructive pulmonary disease) with emphysema HTN (hypertension) Hyperlipidemia Hypothyroidism Surgical History (Updated 02/13/21 @ 02:18 by Fanta Arenas) Breast, Lumpectomy H/O: hysterectomy sentinel lymph node dissection Social History Smoking/Tobacco Use Status: Current-Occasional Tobacco Type: cigarettes Smoking risk assessment performed?: Yes Alcohol Intake: never Drug use: Never Substance use type: does not use Current gender identity: female Do you feel safe at home: Yes Do you feel safe in your relationship?: Yes
--- NOTE | 2021-02-14 16:44 | PDOC.CMDIS ---
LACE Index Scoring Tool - Questions: Length of Stay (in days): 1 Acuity (Admit via E.D.?): Yes Comorbidities: Chronic Pulmonary Disease, Any Tumor E.D. Visits: 2 - Answers: Total Score: 11 Risk of Readmission: High Risk Care Management Discharge Reason for Hospitalization: Bilateral pneumonia, hypoxemia, COPD Exacerbation Discharge Plan: Kelley will return home with no additional services. She will follow up with her PCP and plan of care as prescribed and transport via private vehicle with her . She was sitting on her bed, excited to be returning home, sharing no concerns at this time. Patient/Family Education Needs: Review discharge instructions, discuss Ask Me Three.
== END 2021-02-14 13:49 | disposition home or self-care (01) | DRG 202 ==
LOC: ER 02-13 00:40 → MS 02-13 01:48
PROVIDERS: Physician Assistant; Admitting Provider Family Medicine; Emergency Provider Emergency Medicine; PCP Nurse Practitioner Family; Visit Provider Family Medicine
DX: J20.9 Acute bronchitis, unspecified (principal); I31.3 Pericardial effusion (noninflammatory); J43.2 Centrilobular emphysema; Z87.891 Personal history of nicotine dependence; R09.02 Hypoxemia; Z20.822 Contact with and (suspected) exposure to COVID-19; I10 Essential (primary) hypertension; E78.5 Hyperlipidemia, unspecified; E03.9 Hypothyroidism, unspecified
CPT/HCPCS: 36415; 71275; 80053; 85027; 87040; 87635; 93005; 94618; 94640; 96365; 96367; 96375; 99291; J1650; 81003; 81015; 83605; 83735; 83880; 84443; 84484; 85025; 93010; 99223; 99232; 99238; J0131; J0696; J2930; J3490; J7512; J7620

== ENCOUNTER 2021-02-21 03:16 | Outpatient (CLI) | payer MEDICARE, SELFPAY ==
[2021-02-21] MEDS: Albuterol HFA 18 GM 200 PUFF INH IH (13:55)
[2021-02-21] MEDS: Inhaler, Assist Device 1 EACH MC (13:56)
--- NOTE | 2021-02-21 17:19 | W.PFT ---
Date of service: 02/21/21 Time of Service: 13:05 Pulmonary Function Test Result Requesting Provider Lisa Zacarias Interpretation Spirometry: There is moderate airflow limitation. There is no significant bronchodilator response. The FVC is low but this is likely due to airflow obstruction. Lung Volumes: Lung volumes are normal Diffusion Capacity: There is a reduced diffusion Airway Pressure: Airways resistance is normal Impression There is moderate airflow limitation with a reduced diffusion capacity which in the correct clinical context could represent COPD with emphysema. Clinical Correlation therefore is recommended.
== END 2021-02-21 03:17 | disposition home or self-care (01) ==
LOC: RT 03:16
PROVIDERS: PCP Nurse Practitioner Family; Visit Provider Internal Medicine
DX: J43.9 Emphysema, unspecified (principal)
CPT/HCPCS: 94060; 94726; 94729

== ENCOUNTER 2021-03-09 09:12 | Outpatient (CLI) | payer MEDICARE, SELFPAY ==
[2021-03-09 10:57] LABS: ALT 35 U/L (14-59); AST 17 U/L (15-37); Albumin 3.5 g/dL (3.4-5.0); Alkaline Phosphatase 84 U/L (46-116); Anion Gap 8.9 mmol/L (3-11); BUN 10 mg/dL (7-18); Bilirubin, Total 0.4 mg/dL (0.2-1.0); CO2 27.1 mmol/L (21.0-32.0); Calcium 8.9 mg/dL (8.5-10.1); Chloride 108 mmol/L (98-107); Estimated GFR 55.64 (mL/min/1.73m2); Glucose 110 mg/dL (74-106); Potassium 4.1 mmol/L (3.5-5.1); Sodium 144 mmol/L (136-145); Total Protein 6.4 g/dL (6.4-8.2)
== END 2021-03-09 09:13 | disposition home or self-care (01) ==
LOC: LBO 09:16
PROVIDERS: PCP Nurse Practitioner Family; Visit Provider Internal Medicine Hematology & Oncology
DX: C50.412 Malignant neoplasm of upper-outer quadrant of left female breast (principal); Z17.0 Estrogen receptor positive status [ER+]; M85.88 Other specified disorders of bone density and structure, other site; Z79.811 Long term (current) use of aromatase inhibitors
CPT/HCPCS: 36415; 80053

== ENCOUNTER 2021-03-24 00:25 | Outpatient (CLI) | payer MEDICARE, SELFPAY ==
--- NOTE | 2021-03-24 | DI.DEXA_ITS ---
Exam(s) XR DEXA BONE DENSITY W/WO DAVID EXAM: XR DEXA BONE DENSITY W/WO DAVID CLINICAL HISTORY: LT BREAST CA,OSTEOPENIA,M85.88,CATCHER PLUG USE AROMATASE INHIBITOR TECHNIQUE: Routine DEXA evaluation of the lumbar spine, hip, or forearm. COMPARISON: Prior DEXA scan March 2018 FINDINGS: Performed on a [employer] unit. Lateral image: No compression fracture evident. Lumbar Spine total T-score: -2.3 prior March 2018 reading was -2.2 Hip total T-score:0.0. Prior 2018 was -0.7 Independent reading at the level of the femoral neck yields at T-score of -1.0. Forearm total T-score: -2.8 IMPRESSION: Bone mineral density measures in the osteopenia range, bordering on osteoporosis.. Fracture risk is moderate-high Note: Any spine fracture indicates 5x risk for subsequent spine fracture and 2x risk for subsequent h ip fracture. World Health Organization criteria for BMD interpretation classify patients: Normal...... T- Score at or above -1.0 Osteopenic... T- Score between -1.0 and -2.5 Osteoporosis... T-Score at or below -2.5
== END 2021-03-24 00:45 ==
PROVIDERS: PCP Nurse Practitioner Family; Visit Provider Internal Medicine Hematology & Oncology
DX: C50.412 Malignant neoplasm of upper-outer quadrant of left female breast (principal); Z17.0 Estrogen receptor positive status [ER+]; Z79.811 Long term (current) use of aromatase inhibitors; M85.839 Other specified disorders of bone density and structure, unspecified forearm; Z13.820 Encounter for screening for osteoporosis; M81.0 Age-related osteoporosis without current pathological fracture
CPT/HCPCS: 77080

== ENCOUNTER 2021-03-24 01:39 | Outpatient (CLI) | payer MEDICARE, SELFPAY ==
[2021-03-24 14:09] LABS: ALT 44 U/L (14-59); AST 20 U/L (15-37); Albumin 3.5 g/dL (3.4-5.0); Alkaline Phosphatase 98 U/L (46-116); Anion Gap 9.9 mmol/L (3-11); BUN 16 mg/dL (7-18); Bilirubin, Total 0.3 mg/dL (0.2-1.0); CO2 25.1 mmol/L (21.0-32.0); CREATININE 0.9 mg/dL (0.55-1.02); Chloride 106 mmol/L (98-107); Glucose 111 mg/dL (74-106); Potassium 4.1 mmol/L (3.5-5.1); Sodium 141 mmol/L (136-145); Total Protein 6.9 g/dL (6.4-8.2)
== END 2021-03-24 01:40 | disposition home or self-care (01) ==
LOC: LBO 01:39
PROVIDERS: PCP Nurse Practitioner Family; Visit Provider Internal Medicine Hematology & Oncology
DX: C50.412 Malignant neoplasm of upper-outer quadrant of left female breast (principal); Z17.0 Estrogen receptor positive status [ER+]; M85.88 Other specified disorders of bone density and structure, other site
CPT/HCPCS: 36415; 80053

== ENCOUNTER → 2021-04-13 09:45 | Outpatient (BNVA) | payer MEDICARE, SELFPAY | PROVIDERS: PCP Nurse Practitioner Family; Referring Provider Nurse Practitioner Family; Visit Provider Student in an Organized Health Care Education/Training Program | DX: M75.02 Adhesive capsulitis of left shoulder (principal); M19.012 Primary osteoarthritis, left shoulder; M75.22 Bicipital tendinitis, left shoulder; M75.52 Bursitis of left shoulder; J44.9 Chronic obstructive pulmonary disease, unspecified; F17.211 Nicotine dependence, cigarettes, in remission; Z98.890 Other specified postprocedural states | CPT/HCPCS: 99213 ==

== ENCOUNTER 2021-04-19 01:15 | Outpatient (CLI) | payer MEDICARE, SELFPAY ==
--- NOTE | 2021-04-19 06:30 | DI.US_ITS ---
APPROVED REPORT EXAM: Comprehensive 2D, Doppler, and color-flow Echocardiogram Patient Location: Out-Patient Health Concierge: Amy Mchugh RDCS (AE) Indications: Dyspnea, Pericardial Effusion Other Information Study Quality: Good Conclusion Normal left ventricular wall thickness and chamber size. Estimated ejection fraction is 55 to 60%. There are no segmental wall motion abnormalities Normal right ventricular size and systolic function Both atria are normal in size The aortic valve is trileaflet and sclerotic without stenosis or regurgitation Mildly thickened mitral leaflets with trace to mild regurgitation Normal tricuspid valve with trace to mild regurgitation. Estimated right ventricular systolic pressu re is 19 mmHg Mildly dilated aortic root, 3.42 cm There is no pericardial effusion Wall motion Left Ventricle The left ventricle is normal size. The left ventricular systolic function is normal. The left ventric ular ejection fraction is within the normal range. There is normal left ventricular wall thickness. T here is normal LV segmental wall motion. There is no ventricular septal defect visualized. LVEF is 58 %. Right Ventricle The right ventricle is normal size. The right ventricular systolic function is normal. The RVSP is 19 .1 mmHg. Atria The left atrium size is normal. The right atrium size is normal. The interatrial septum is intact wit h no evidence for an atrial septal defect. Aortic Valve The Aortic valve is sclerotic. Aortic valve is trileaflet. There is no aortic valvular stenosis. No a ortic regurgitation is present. Mitral Valve Mitral valve leaflets are mildly thickened. No evidence of mitral valve stenosis. Trace to mild rick l regurgitation. Tricuspid Valve The tricuspid valve is normal in structure. There is no tricuspid valve stenosis. Trace tricuspid reg urgitation. Pulmonic Valve The pulmonary valve is normal in structure. There is no pulmonic valvular stenosis. There is no pulmo susan valvular regurgitation. Great Vessels Aortic root is mildly dilated.3.42 cm The ascending aorta is normal in size. Aortic arch is not well visualized. IVC is normal in size and collapses >50% with inspiration. Pericardium There is no pericardial effusion. 2D Dimensions IVSD d PLAX 0.90 cm F: 0.6-1.0 LV Vol A2C d MOD 97.7 mL LVPW d PLAX 0.92 cm F: 0.6 - 1.0 LV Vol A4C d MOD 103.3 mL LVID d PLAX 4.38 cm F: 3.8 - 5.2 LA vol/ BSA A2C s A-L 26.1 mL/m2 LVDs 3.05 cm F: 2.2 - 3.5 LA vol/ BSA A4C s A-L 22.2 mL/m2 Ao Root d 3.42 cm F: 2.7 - 3.3 LA Vol/ BSA Biplane s A-L 24.6 mL/m2 RA Area A4C 11.37 cm2 LA Area A4C s MOD 16.68 cm2 RA Vol/ BSA A4C s A-L 11.6 mL/m2 LA Area A2C s MOD 18.51 cm2 Ao Asc Diam d 3.07 cm F: 2.3 - 3.1 LV EF A4C MOD 59.2 % LV EF Teichholz 56.9 % LV EF A2C MOD 56.2 % LVEF (Beaulieu's) 58.29 % F: 54 - 74 LV EF Biplane MOD 58.3 % LV Volume 76.29 mL F: 46 - 106 SV 59.86 mL LV Volume Index 37.03 mL/m2 F: 29 - 61 SV Index 29.08 mL/m2 LV Vol Biplane MOD 102.7 mL FS 29.60 % M-Mode TAPSE 2.22 cm (M/F) >1.7 LV Diastology MV E' medial 0.121 (>0.07 m/s) E/A Ratio 0.8 LV E/e MED 6.15 (<14) MV E Vmax 0.75 (0.4-1.3 m/s) MV E' lateral 0.119 (>0.1 m/s) MV A Vmax 0.95 (0.4-1.3 m/s) LV E/e LAT 6.25 (<14) MV E/A Ratio 0.78 MV E/E' medial 6.18 MV E/E' lateral 6.26 Aortic Valve LVOT Area 3.44 cm2 AoV Area Vmax 2.42 cm2 LVOT Vmax 0.80 m/s AoV Area/ BSA (Vmax) 1.17 cm2/m2 LVOT Mean Bert. 0.55 m/s OSCAR Mean Bert. 2.22 cm2 LVOT Peak Grad 2.5 mmHg OSCAR Mean Bert. Index 1.08 cm2/m2 LVOT Mean Grad 1.4 mmHg LVOT VTI 0.178 m LVOT Diam s 2.05 cm AoV Vmax 1.13 m/s Velocity Ratio 0.70 AoV Mean Bert. 0.85 m/s AoV Peak Grad 5.1 mmHg LVOT SV 61.36 mL AoV Mean Grad 3.2 mmHg AoV VTI 0.255 m AoV Area VTI 2.41 cm2 AoV Area/ BSA (VTI) 1.17 cm/m2 Mitral Valve MV DT 204 (160-240 msec) MV PHT 59 msec MV Area PHT 3.71 cm2 MV VTI 0.255 m MV Area VTI 2.41 (4.0-6.0 cm2) Pulmonary Valve PV Vmax 0.85 (0.5-1.5 m/s) RVOT Peak Gr. 1.86 mmHg PV Peak Grad 2.9 mmHg RVOT Mean Gr. 0.95 mmHg PV Mean Grad 1.6 mmHg RVOT VTI 0.136 m PV VTI 0.184 m RVOT Vmax 0.68 m/s Tricuspid Valve TR Peak Grad 16.0 mmHg TR Vmax 2.00 m/s RA Pressure 3.00 mmHg RVSP (TR) 19.1 mmHg
== END 2021-04-19 01:35 ==
PROVIDERS: PCP Nurse Practitioner Family; Visit Provider Student in an Organized Health Care Education/Training Program
DX: I31.3 Pericardial effusion (noninflammatory) (principal); R06.09 Other forms of dyspnea; I08.3 Combined rheumatic disorders of mitral, aortic and tricuspid valves; I77.810 Thoracic aortic ectasia
CPT/HCPCS: 93306

== ENCOUNTER → 2021-05-02 13:11 | Outpatient (BNVA) | payer MEDICARE, SELFPAY | PROVIDERS: PCP Nurse Practitioner Family; Referring Provider Nurse Practitioner Family; Visit Provider Psychiatry & Neurology Neurology | DX: G25.0 Essential tremor (principal); J44.9 Chronic obstructive pulmonary disease, unspecified; I10 Essential (primary) hypertension; F17.211 Nicotine dependence, cigarettes, in remission | CPT/HCPCS: 99214 ==

== ENCOUNTER 2021-05-27 00:44 | Outpatient (CLI) | payer MEDICARE, SELFPAY ==
--- NOTE | 2021-05-27 10:20 | DI.MAMMO_ITS ---
Exam(s) MG MAMMO SCREENING 60 MIN DUR EXAM: MG MAMMO SCREENING 60 MIN DUR CLINICAL HISTORY: SCREENING, PERSONAL H/O BREAST CA,C50.912 TECHNIQUE: Mammograms were interpreted according to the usual protocol including computer analysis w [employer] CAD system, tomosynthesis and C-view imaging. COMPARISON: 2012 through 2019 FINDINGS: The breasts are composed of scattered fibroglandular densities, Breast Density category B. Surgical clips and scarring in the upper outer quadrant left breast related to prior lumpectomy. No suspicious masses or suspicious microcalcifications are seen in either breast.. No skin thickening or abnormal axillary lymph nodes are seen. There has been no significant change from prior exams. IMPRESSION: BI-RADS Cat 2 - Benign Findings Yearly screening mammography is recommended. Breast Density - Category B, scattered fibroglandular densities. A negative radiographic report should not delay biopsy if a dominant or clinically suspicious mass is present. Up to ten percent of cancers are not identified on mammography. A negative report may reinforce clinical impression. Adenosis and dense breasts may obscure an underlying neoplasm. False positive reports average 6 to 10%. Patient will receive a letter notifying them of these results.
== END 2021-05-27 01:04 ==
PROVIDERS: PCP Nurse Practitioner Family; Visit Provider Nurse Practitioner Family
DX: Z85.3 Personal history of malignant neoplasm of breast (principal); Z12.31 Encounter for screening mammogram for malignant neoplasm of breast
CPT/HCPCS: 77063; 77067

== ENCOUNTER → 2021-06-14 09:07 | Outpatient (BNVA) | payer MEDICARE, SELFPAY | PROVIDERS: PCP Nurse Practitioner Family; Referring Provider Nurse Practitioner Family; Visit Provider Psychiatry & Neurology Neurology | DX: G25.0 Essential tremor (principal); J44.9 Chronic obstructive pulmonary disease, unspecified; I10 Essential (primary) hypertension; Z87.891 Personal history of nicotine dependence | CPT/HCPCS: 99213 ==

== ENCOUNTER → 2021-07-26 09:40 | Outpatient (BNVA) | payer MEDICARE, SELFPAY | PROVIDERS: PCP Nurse Practitioner Family; Referring Provider Nurse Practitioner Family; Visit Provider Psychiatry & Neurology Neurology | DX: G25.0 Essential tremor (principal); J44.9 Chronic obstructive pulmonary disease, unspecified; I10 Essential (primary) hypertension; F17.210 Nicotine dependence, cigarettes, uncomplicated | CPT/HCPCS: 99213 ==

== ENCOUNTER 2021-08-15 09:10 | Outpatient (REF) | payer MEDICARE, SELFPAY ==
[2021-08-15 14:43] LABS: ALT 52 U/L (14-59); AST 24 U/L (15-37); Calculated LDL 101 mg/dL (<100); Cholesterol 199 mg/dL (<200); HDL Cholesterol 58 mg/dL (40-60); Triglyceride 202 mg/dL (<150)
[2021-08-15 14:55] LABS: Creatine Kinase 54 U/L (26-192)
== END 2021-08-15 09:11 | disposition home or self-care (01) ==
LOC: NCHCN 09:10
PROVIDERS: PCP Nurse Practitioner Family; Visit Provider Nurse Practitioner Family
DX: E78.5 Hyperlipidemia, unspecified (principal); I10 Essential (primary) hypertension
CPT/HCPCS: 80061; 82550; 84450; 84460

== ENCOUNTER → 2021-09-20 09:13 | Outpatient (BNVA) | payer MEDICARE, SELFPAY | PROVIDERS: PCP Nurse Practitioner Family; Visit Provider Psychiatry & Neurology Neurology | DX: G25.0 Essential tremor (principal); J44.9 Chronic obstructive pulmonary disease, unspecified | CPT/HCPCS: 99213 ==

== ENCOUNTER 2021-09-29 15:09 | Outpatient (REF) | payer MEDICARE, SELFPAY ==
[2021-09-29 14:25] LABS: Creatinine,Urine 49.23 mg/dL
[2021-09-29 14:29] LABS: Creatinine,24hr Ur 1.18 g/24hr (0.60-1.80); Total Volume 2400 ml
[2021-09-30 11:15] LABS: Calcium Urine 14.4 mg/dL (See Note); Calcium Urine 24 hr 346 mg/24hrs (100-300); Timed Urine Volume 2400 mL
== END 2021-09-29 15:10 | disposition home or self-care (01) ==
LOC: LBN 15:09
PROVIDERS: PCP Nurse Practitioner Family; Visit Provider Internal Medicine Endocrinology, Diabetes & Metabolism
DX: M81.0 Age-related osteoporosis without current pathological fracture (principal); R63.5 Abnormal weight gain
CPT/HCPCS: 81050; 82340; 82570

== ENCOUNTER 2021-11-01 19:09 | Outpatient (REF) | payer MEDICARE, SELFPAY ==
[2021-11-01 16:44] LABS: Hemoglobin A1C 5.9 % (<5.7)
== END 2021-11-01 19:10 | disposition home or self-care (01) ==
LOC: NCHCN 19:09
PROVIDERS: PCP Nurse Practitioner Family; Visit Provider Nurse Practitioner Family
DX: R73.09 Other abnormal glucose (principal); E66.8 Other obesity; Z68.34 Body mass index [BMI] 34.0-34.9, adult
CPT/HCPCS: 83036

== ENCOUNTER → 2022-01-30 01:05 | Outpatient (CLI) | payer MEDICARE, SELFPAY ==
--- NOTE | 2022-01-30 07:45 | DI.CTLCSR_ITS ---
Exam(s) CT CHEST LUNG CANCER SCREEN EXAM: CT CHEST LUNG CANCER SCREEN CLINICAL HISTORY: Screening for lung cancer,FORMER SMOKER, Z87.891 TECHNIQUE: CT examination of the chest was performed utilizing low-dose lung cancer screening protoc ol. COMPARISON: CT CT CHEST PE CTA from 02/12/2021 FINDINGS: Images obtained through the upper abdomen show unremarkable appearance of visualized portions of the liver and spleen. Note is made of coronary artery calcification. There is no mediastinal or hilar adenopathy. Mediastinal vascular structures appear intact by noncon trast criteria. Tracheobronchial tree appears intact. No pleural effusion or pleural-based mass. The lungs are predominantly clear moderate central lobular pulmonary emphysematous changes. There is a 4 millimeter noncalcified right middle lobe nodule, unchanged from prior examination of January. Note is made of and L1 vertebral body sclerotic focus which is also unchanged from prior CT examinati on.. IMPRESSION: Lung RADS Cat 2 - Benign Appearance / Behavior: Nodules with a very low likelihood of becoming a clin ically active cancer due to size or lack of growth Continue annual screening with LDCT in 12 months. Lung-RADS 1.0 CATEGORIES: Category 0 - Prior chest CT exam(s) being located for comparison. Category 1 - Annual screening in 12 months. No nodules or definitely benign nodules. Category 2 - Annual screening in 12 months. Benign appearance. Nodules with low likelihood of becomin g active cancer. Category 3 - 6-month follow-up. Probably benign. Short-term follow-up suggested. Nodules with low lik elihood of becoming active cancer. Category 4A - 3-month follow-up and CT/PET if >8 mm in size. Suspicious finding. Findings which requi re additional testing. Category 4B - Findings which require additional testing and tissue sampling. Suspicious finding. Category 4X - Category 3 or 4 nodules with additional features or imaging findings that increases the suspicion of malignancy. Modifier S- Potentially clinically significant finding. (Non lung cancer) RADIATION DOSE DELIVERED: 81.78mGy.cm Total DLP 1.84mGy CTDIvol 81.78mGy.cm Total DLP !Error CTDIvol RADIATION OPTIMIZATION: All CT scans at this facility use at least one of these dose optimization te chniques: automated exposure control; mA and/or kV adjustment per patient size (includes targeted exa ms where dose is matched to clinical indication); or iterative reconstruction.
== END ==
PROVIDERS: PCP Nurse Practitioner Family; Visit Provider Student in an Organized Health Care Education/Training Program
DX: Z87.891 Personal history of nicotine dependence (principal); Z12.2 Encounter for screening for malignant neoplasm of respiratory organs
CPT/HCPCS: 71271

== ENCOUNTER 2022-02-13 15:14 | Outpatient (REF) | payer MEDICARE, SELFPAY ==
[2022-02-13 16:15] LABS: HCT 40.4 % (36.0-46.0); HGB 13.8 g/dL (11.2-15.7); MCH 29.6 pg (27.0-33.0); MCHC 34.2 % (32.0-36.0); MCV 87 fL (80-95); MPV 11.7 fL (8.0-11.0); Platelet Count 216 10^3/uL (130-400); RBC 4.66 10^6/uL (3.93-5.22); RDW 12.5 % (11.7-14.6); RDW-SD 39.4 fL; WBC 6.01 10^3/uL (4.4-10.8)
[2022-02-13 16:40] LABS: Anion Gap 7.2 mmol/L (3-11); BUN 13 mg/dL (7-18); CO2 26.8 mmol/L (21.0-32.0); CREATININE 0.9 mg/dL (0.55-1.02); Calcium 9.3 mg/dL (8.5-10.1); Chloride 106 mmol/L (98-107); Glucose 113 mg/dL (74-106); Potassium 4.2 mmol/L (3.5-5.1); Sodium 140 mmol/L (136-145); TSH 1.41 uIU/mL (0.36-3.74)
== END 2022-02-13 15:15 | disposition home or self-care (01) ==
LOC: NCHCN 15:14
PROVIDERS: PCP Nurse Practitioner Family; Visit Provider Nurse Practitioner Family
DX: E03.9 Hypothyroidism, unspecified (principal); I10 Essential (primary) hypertension; Z85.3 Personal history of malignant neoplasm of breast
CPT/HCPCS: 80048; 85027; 84443

== ENCOUNTER → 2022-03-21 08:10 | Outpatient (BNVA) | payer MEDICARE, SELFPAY | PROVIDERS: PCP Nurse Practitioner Family; Referring Provider Nurse Practitioner Family; Visit Provider Psychiatry & Neurology Neurology | DX: J44.9 Chronic obstructive pulmonary disease, unspecified (principal); I10 Essential (primary) hypertension; G25.0 Essential tremor | CPT/HCPCS: 99214 ==

== ENCOUNTER 2022-04-17 12:38 | Outpatient (CLI) | payer MEDICARE, SELFPAY ==
[2022-04-17 16:44] LABS: BUN 19 mg/dL (7-18); CREATININE 0.9 mg/dL (0.55-1.02); Calcium 9.3 mg/dL (8.5-10.1); Estimated GFR 70.51 (mL/min/1.73m2)
== END 2022-04-17 12:39 | disposition home or self-care (01) ==
LOC: LBO 12:38
PROVIDERS: PCP Nurse Practitioner Family; Visit Provider Internal Medicine Endocrinology, Diabetes & Metabolism
DX: M81.0 Age-related osteoporosis without current pathological fracture (principal)
CPT/HCPCS: 36415; 84520; 82310; 82565

== ENCOUNTER 2022-04-21 01:21 | Outpatient (RCR) | payer MEDICARE, SELFPAY ==
[2022-04-21] MEDS: Acetaminophen 325 MG TAB 650 MG PO (09:03)
[2022-04-21] MEDS: ZOLEDRONIC ACID/MANNITOL/WATER 5 MG/100 ML BTL 300 MG IVPB (09:10)
[2022-04-21] MEDS: Normal Saline Flush 10 ML SYR IVP (09:11)
== END 2022-05-01 23:59 | disposition home or self-care (01) ==
LOC: INF 01:21
PROVIDERS: PCP Nurse Practitioner Family; Visit Provider Family Medicine
DX: M81.0 Age-related osteoporosis without current pathological fracture (principal)
CPT/HCPCS: 96365; J3489

== ENCOUNTER → 2022-05-29 01:43 | Outpatient (CLI) | payer MEDICARE, SELFPAY ==
--- NOTE | 2022-05-29 | DI.MAMMO_ITS ---
Exam(s) MG MAMMO SCREENING 60 MIN DUR EXAM: MG MAMMO SCREENING 60 MIN DUR CLINICAL HISTORY: SCREENING FOR BREAST CANCER Z12.39, HX BREAST CANCER Z85.3 TECHNIQUE: Mammograms were interpreted according to the usual protocol including computer analysis w [employer] CAD system, tomosynthesis and C-view imaging. COMPARISON: 2012 through 2020 FINDINGS: The breasts are composed of scattered fibroglandular densities, Breast Density category B. No suspicious masses or suspicious microcalcifications are seen. Post lumpectomy changes are again n oted in the upper outer quadrant of the left breast. No skin thickening or abnormal axillary lymph nodes are seen. There has been no significant change from prior exams. IMPRESSION: BI-RADS Cat 2 - Benign Findings Yearly screening mammography is recommended. Breast Density - Category B, scattered fibroglandular densities. A negative radiographic report should not delay biopsy if a dominant or clinically suspicious mass is present. Up to ten percent of cancers are not identified on mammography. A negative report may reinforce clinical impression. Adenosis and dense breasts may obscure an underlying neoplasm. False positive reports average 6 to 10%. Patient will receive a letter notifying them of these results.
== END ==
PROVIDERS: PCP Nurse Practitioner Family; Visit Provider Nurse Practitioner Family
DX: Z12.31 Encounter for screening mammogram for malignant neoplasm of breast (principal); Z85.3 Personal history of malignant neoplasm of breast; Z98.890 Other specified postprocedural states
CPT/HCPCS: 77063; 77067

== ENCOUNTER 2022-08-15 17:49 | Outpatient (REF) | payer MEDICARE, SELFPAY ==
[2022-08-15 16:11] LABS: Hemoglobin A1C 5.6 % (<5.7)
[2022-08-15 16:16] LABS: ALT 53 U/L (14-59); AST 31 U/L (15-37); Albumin 3.7 g/dL (3.4-5.0); Alkaline Phosphatase 71 U/L (46-116); Anion Gap 8.4 mmol/L (3-11); BUN 10 mg/dL (7-18); Bilirubin, Total 0.3 mg/dL (0.2-1.0); CO2 26.6 mmol/L (21.0-32.0); CREATININE 0.8 mg/dL (0.55-1.02); Calcium 9.2 mg/dL (8.5-10.1); Calculated LDL 109 mg/dL (<100); Chloride 105 mmol/L (98-107); Cholesterol 211 mg/dL (<200); Estimated GFR 80.71 (mL/min/1.73m2); Glucose 106 mg/dL (74-106); HDL Cholesterol 57 mg/dL (40-60); Potassium 4.3 mmol/L (3.5-5.1); Sodium 140 mmol/L (136-145); Total Protein 6.6 g/dL (6.4-8.2); Triglyceride 228 mg/dL (<150)
[2022-08-15 16:41] LABS: Creatine Kinase 41 U/L (26-192)
== END 2022-08-15 17:50 | disposition home or self-care (01) ==
LOC: NCHCN 17:49
PROVIDERS: PCP Nurse Practitioner Family; Visit Provider Nurse Practitioner Family
DX: E78.5 Hyperlipidemia, unspecified (principal); I10 Essential (primary) hypertension; R73.03 Prediabetes
CPT/HCPCS: 80053; 80061; 82550; 83036

== ENCOUNTER 2023-02-02 00:18 | Outpatient (CLI) | payer MEDICARE, SELFPAY ==
--- NOTE | 2023-02-02 09:58 | DI.CTLCSR_ITS ---
Exam(s) CT CHEST LUNG CANCER SCREEN EXAM: CT CHEST LUNG CANCER SCREEN CLINICAL HISTORY: Screening for lung cancer, FORMER SMOKER, Z87.891. TECHNIQUE: Imaging Protocol: Low Dose Technique CONTRAST MATERIAL: None COMPARISON: CT CT CHEST LUNG CANCER SCREEN from 08/04/[address] CHEST PE CTA from 02/12/[address] CHEST LUNG CANCER SCREEN from 01/30/2022 FINDINGS: CHEST: LUNGS: COPD emphysematous changes again noted. In the right lung the previously described in the 3 m illimeter nodule in the right lung is unchanged. No new right lung findings. In the left upper lobe a small nodular infiltrate measuring 7 x 6 x 9 mm, slightly increased in size. No other focal left lung findings. No pleural effusions on either side. MEDIASTINUM: There is no obvious hilar nor mediastinal adenopathy. CARDIAC: Heart size remains normal. There is a pericardial effusion evident with maximum thickness a nteriorly of 1 cm, more so than previous.Caliber of the thoracic aorta is within normal limits. OTHER: OSSEOUS: No significant osseous lesions.Benign-appearing sclerotic density in L1 vertebral body is un changed from CT scan performed August 2019. No new significant bone lesions. IMPRESSION: 1. In the left upper lobe there is a 7 x 6 x 8 to rule out malignancy. Mm spiculated noncalcified no dule which is more evident than on prior CT scans and requires close follow-up to rule out malignancy . Recommend repeat CT scan in 3 months 2. Unchanged benign-appearing 3 millimeter nodule in the opposite-right lung. 3. Lung RADS Cat 4A - Suspicious: Findings for which additional diagnostic testing as described above is recommended Lung-RADS 1.0 CATEGORIES: Category 0 - Prior chest CT exam(s) being located for comparison. Category 1 - Annual screening in 12 months. No nodules or definitely benign nodules. Category 2 - Annual screening in 12 months. Benign appearance. Nodules with low likelihood of becomin g active cancer. Category 3 - 6-month follow-up. Probably benign. Short-term follow-up suggested. Nodules with low lik elihood of becoming active cancer. Category 4A - 3-month follow-up and CT/PET if >8 mm in size. Suspicious finding. Findings which requi re additional testing. Category 4B - Findings which require additional testing and tissue sampling. Category 4X - Category 3 or 4 nodules with additional features or imaging findings that increases the suspicion of malignancy. Modifier S- Potentially clinically significant findings (non lung cancer) RADIATION DOSE DELIVERED: 76.31mGy.cm Total DLP DATA REPOSITORY: All CT scans at this facility are submitted to the National Radiology Data Registry (NRDR) Dose Index Registry (DIR) with the [employer] (ACR). RADIATION OPTIMIZATION: All CT scans at this facility use at least one of these dose optimization te chniques: automated exposure control; mA and/or kV adjustment per patient size (includes targeted exa ms where dose is matched to clinical indication); or iterative reconstruction.
== END 2023-02-02 00:38 ==
LOC: DI 00:18
PROVIDERS: PCP Nurse Practitioner Family; Visit Provider Physician Assistant Surgical
DX: Z87.891 Personal history of nicotine dependence (principal); Z12.2 Encounter for screening for malignant neoplasm of respiratory organs
CPT/HCPCS: 71271

== ENCOUNTER 2023-02-12 12:14 | Outpatient (REF) | payer MEDICARE, SELFPAY ==
[2023-02-12 16:31] LABS: FREE T4 0.91 ng/dL (0.76-1.46); TSH 2.17 uIU/mL (0.36-3.74)
== END 2023-02-12 12:15 | disposition home or self-care (01) ==
LOC: NCHCN 12:14
PROVIDERS: PCP Nurse Practitioner Family; Visit Provider Nurse Practitioner Family
DX: E03.9 Hypothyroidism, unspecified (principal); R73.03 Prediabetes
CPT/HCPCS: 84439; 84443

== ENCOUNTER → 2023-03-20 08:30 | Outpatient (BNVA) | payer MEDICARE, SELFPAY | PROVIDERS: PCP Nurse Practitioner Family; Visit Provider Psychiatry & Neurology Neurology | DX: G25.0 Essential tremor (principal); J44.9 Chronic obstructive pulmonary disease, unspecified; I10 Essential (primary) hypertension | CPT/HCPCS: 99213 ==

== ENCOUNTER 2023-04-19 06:06 | Outpatient (CLI) | payer MEDICARE, SELFPAY ==
--- NOTE | 2023-04-19 | DI.DEXA_ITS ---
Exam(s) XR DEXA BONE DENSITY W/WO DAVID EXAM: XR DEXA BONE DENSITY W/WO DAVID CLINICAL HISTORY: SCREENING FOR OSTEOPOROSIS IN POSTMENOPAUSAL WOMAN,Z78.0 TECHNIQUE: COMPARISON: CR XR DEXA BONE DENSITY W/WO DAVID from 03/24/2021 FINDINGS: Lateral Spine Image: Unremarkable. No compression deformities identified. Left hip: Total T-Score: -0.2. This compares to 0.0 on the prior examination. Total Z-Score: 1.2 T- and Z-scores: Within normal limits. Lumbar Spine: Total T-Score: -1.5. This compares to -2.3 on the prior examination. Total Z-Score: 0.4 T- and Z-scores: Findings are consistent with osteopenia. There is osteoporosis in the left forearm with a total T-score of -2.5 and Z-score of -0.7. IMPRESSION: 1. There is no evidence of osteoporosis in the left hip or lumbar spine. 2. Osteoporosis in the left forearm.
== END 2023-04-19 06:26 ==
LOC: DI 06:13
PROVIDERS: PCP Nurse Practitioner Family; Visit Provider Nurse Practitioner Family
DX: Z78.0 Asymptomatic menopausal state (principal); Z13.820 Encounter for screening for osteoporosis; M81.0 Age-related osteoporosis without current pathological fracture
CPT/HCPCS: 77080

== ENCOUNTER → 2023-05-30 01:30 | Outpatient (CLI) | payer MEDICARE, SELFPAY ==
--- NOTE | 2023-05-30 | DI.MAMMO_ITS ---
Exam(s) MG MAMMO SCREENING 60 MIN DUR EXAM: MG MAMMO SCREENING 60 MIN DUR CLINICAL HISTORY: PERSONAL H/O BREAST CA,Z85.3,SCREENING,Z12.31 TECHNIQUE: Bilateral full field digital CC and MLO mammographic images were obtained with 3D tomosyn thesis and utilizing computer aided detection (CAD). COMPARISON: Available for comparison. FINDINGS: Masses/Architectural Distortion: None seen. Status post left lumpectomy. Microcalcifications: No suspicious pleomorphic-type are seen. Skin Thickening/Nipple Retraction: None. IMPRESSION: 1. No significant interval change with no specific features of malignancy noted. 2. Unless there is more urgent need, screening mammography is recommended, as per [employer] guidelines. 3. Findings were discussed with the patient on the date of the examination. BI-RADS Category 2 - Benign Findings Breast Density - Category B - Scattered areas of fibroglandular density Breast density category C or D implies that the patient has dense breast tissue. Dense breast tissue is very common and is not abnormal but dense breast tissue can make it harder to find cancer on a ma mmogram. Also, dense breast tissue may increase their breast cancer risk. This information about the result of the mammogram report was provided to the patient to raise their awareness. Use this report when you speak with the patient about their risks for breast cancer, which includes their family hist ory. At that time, you may recommend for more screening tests (Ultrasound or MRI) as they might be us eful based on their risk. A negative radiographic report should not delay biopsy if a dominant or clinically suspicious mass is present. Up to ten percent of cancers are not identified on mammography. A negative report may reinforce clinical impression. Adenosis and dense breasts may obscure an underlying neoplasm. False positive reports average 6 to 10%. Patient will receive a letter notifying them of these results.
== END ==
PROVIDERS: PCP Nurse Practitioner Family; Visit Provider Nurse Practitioner Family
DX: Z85.3 Personal history of malignant neoplasm of breast (principal); Z12.31 Encounter for screening mammogram for malignant neoplasm of breast
CPT/HCPCS: 77063; 77067

== ENCOUNTER 2023-07-18 12:59 | Outpatient (REF) | payer MEDICARE, SELFPAY ==
[2023-07-18 15:52] LABS: COVID-19 PCR Negative (Negative); Influenza A PCR Negative (Negative); Influenza B PCR Negative (Negative); RSV PCR Negative (Negative)
[2023-07-18 16:23] LABS: Source NASOPHARYNX
== END 2023-07-18 13:00 | disposition home or self-care (01) ==
LOC: NCHCN 12:59
PROVIDERS: PCP Nurse Practitioner Family; Visit Provider Nurse Practitioner Family
DX: J44.1 Chronic obstructive pulmonary disease with (acute) exacerbation (principal); Z20.828 Contact with and (suspected) exposure to other viral communicable diseases
CPT/HCPCS: 87637

== ENCOUNTER → 2023-07-26 10:12 | Outpatient (BNVA) | payer MEDICARE, SELFPAY | PROVIDERS: PCP Nurse Practitioner Family; Referring Provider Nurse Practitioner Family; Visit Provider Student in an Organized Health Care Education/Training Program | DX: J43.2 Centrilobular emphysema (principal); R91.1 Solitary pulmonary nodule; Z87.891 Personal history of nicotine dependence | CPT/HCPCS: 99214 ==

== ENCOUNTER 2023-08-21 14:26 | Outpatient (REF) | payer MEDICARE, SELFPAY ==
[2023-08-21 16:16] LABS: ALT 42 U/L (14-59); AST 27 U/L (15-37); Albumin 3.7 g/dL (3.4-5.0); Alkaline Phosphatase 79 U/L (46-116); Anion Gap 8.9 mmol/L (3-11); BUN 14 mg/dL (7-18); Bilirubin, Total 0.3 mg/dL (0.2-1.0); CO2 26.1 mmol/L (21.0-32.0); CREATININE 0.9 mg/dL (0.55-1.02); Calcium 9.9 mg/dL (8.5-10.1); Chloride 105 mmol/L (98-107); Estimated GFR 69.64 (mL/min/1.73m2); Glucose 106 mg/dL (74-106); HDL Cholesterol 63 mg/dL (40-60); LDL CHOLESTEROL 103 mg/dL (<100); Magnesium 1.9 mg/dL (1.8-2.4); Potassium 4.4 mmol/L (3.5-5.1); Sodium 140 mmol/L (136-145); Vitamin B12 1330 pg/mL (193-986)
[2023-08-21 16:40] LABS: Creatine Kinase 45 U/L (26-192)
== END 2023-08-21 14:27 | disposition home or self-care (01) ==
LOC: NCHCN 14:26
PROVIDERS: PCP Nurse Practitioner Family; Referring Provider Nurse Practitioner Family; Visit Provider Nurse Practitioner Family
DX: I10 Essential (primary) hypertension (principal); E03.9 Hypothyroidism, unspecified; E78.5 Hyperlipidemia, unspecified; R42 Dizziness and giddiness; F41.8 Other specified anxiety disorders; Z79.899 Other long term (current) drug therapy
CPT/HCPCS: 80053; 82550; 83721; 82607; 83718; 83735

== ENCOUNTER → 2024-01-22 10:37 | Outpatient (BNVA) | payer MEDICARE, SELFPAY | PROVIDERS: PCP Nurse Practitioner Family; Referring Provider Nurse Practitioner Family; Visit Provider Physician Assistant Surgical | DX: J43.2 Centrilobular emphysema (principal); R91.1 Solitary pulmonary nodule; Z87.891 Personal history of nicotine dependence | CPT/HCPCS: 99214 ==

== ENCOUNTER 2024-02-04 18:34 | Outpatient (REF) | payer MEDICARE, SELFPAY ==
[2024-02-04 17:19] LABS: TSH 3.37 uIU/Ml (0.36-3.74); Vitamin D 25 Total 56.2 ng/mL (30-100)
--- OUTSIDE RECORDS SUMMARY | 2024-02-04 18:37 | XMS_ITS ---
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 Name Role Phone Lisa Zacarias Haile BAUM Primary Care Provider [phone] Active Problems Problem Noted Date Diagnosed Date S/P breast lumpectomy 12/05/2023 History of sentinel lymph node dissection 2023 Insomnia 12/05/2023 Laceration of scalp 12/05/2023 Multiple nevi 12/05/2023 Onychomycosis of toenail 12/05/2023 Pain in joint 12/05/2023 Personal history of nicotine dependence 12/05/19 24 Pulmonary infiltrate on chest x-ray 12/05/2023 Respiratory failure 12/05/2023 S/P appendectomy 12/05/2023 S/P tubal ligation 12/05/2023 Tendinitis of long head of biceps brachii of lef t shoulder 12/05/2023 Tobacco abuse 12/05/2023 Traumatic tear of left rotator cuff 12/05/2023 Tremor 12/05/2023 Trochanteric bursitis 12/05/2023 Osteoporosis 04/12/2022 Malignant neoplasm of upper- outer quadrant of left breast in female, estrogen receptor positive 03/11/2020 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 Abnormal endometrial ultrasound 11/16/2015 Abnormal ultrasound of endometrium 11/10/2015 Obesity 11/10/2015 Overview (12/08/2015): BMI 32 Malignant neoplasm of upper- outer quadrant of left female breast 08/16/2015 Dietary counseling and surveillance 04/23/2015 Current Oncology Plans ZOLEDRONIC ACID (RECLAST) FOR TREATMENT OF OSTEOPOROSIS* Plan Start Date: 04/19/2022 Plan Provider:France Lopez MD Linked Problems Malignant neoplasm of upper- outer quadrant of left breast in female, estrogen receptor positiveOsteoporosis, unspecified osteoporosis type, unspecified pathological fracture presence Treatment Medications No medications scheduled. Past Plans ADULT TREATMENT Plan Name Start Date Discontinue Date Treatment Medications Discontinue Reason Plan Provider Cycles [facility] ONC BREAST CANCER - PACLitaxel 201405/31/2015 PACLitaxeL (Taxol) in Non-PVC sodium chloride 0.9% 250 mL infusion Entered In Error Hector Carey MD Treatment not started [facility] ONC BREAST CANCER - DOXOrubicin / CYCLOPHOSPHAMIDE (DOSE DENSE) 015 05/31/2015 cycloPHOSphamide (Cytoxan) in sodium chloride 0.9% 250 mL infusionDOXOrubicin (ADRIAMYCIN) Therapy Complete Hector Carey MD 4 of 4 cycles started Therapy Plan 1 Plan Name Start Date Discontinue Date Treatment Medications Discontinue Reason Plan Provider HEMON DENOSUMAB (PROLIA) INJECTION 03/25/2020 01/23/2024 No medications scheduled. Therapy Complete Giuseppe Shaw MD Therapy Plan 5 Plan Name Start Date Discontinue Date Treatment Medications Discontinue Reason Plan Provider ZOLEDRONIC ACID (RECLAST) FOR TREATMENT OF OSTEOPOROSIS 04/19/2022 04/19/2022 No medications scheduled. Patient Preference France Lopez MD Radiation Treatments * No radiation treatments are documented for this patient in [facility]. Treatments may have been administered in another system. Lifetime Dose Tracking * Chemical Lifetime Dose Automatic Entry Manual Entr y doxorubicin 238.563 mg/m2 (496.8 mg) 238.563 mg/m2 (4 96.8 mg) 0 mg/m2 (0 mg) Treatment Summaries Malignant neoplasm of upper-outer quadrant of left female breast* Cancer Treatment Summary Provided by Ana Paula Nava on 02/13/18 General Information Patient name Kelley Jensen Date of 1955 Support contact Daniel Jensen--spouse Care Team Medical Oncologist Dr Bean Carey Surgeon Dr Shiloh Cruz Radiation Oncologist Dr Maegan Eng [facility]BORER Oncology Dr Meghan Baltazar Primary Care Physician TIKI KEENE Treatment Summary Chemotherapy and Supportive Care Treatment History Breast Cancer Notes BREAST CANCER NOTES 02/13/2018 Method of Cancer Detection abnormal mammogram of the left breast Menopausal Status at Diagnosis post-menopausal Date of Diagnostic Biopsy 01/12/2015 Local Surgery Lumpectomy done at [facility] 02/16/2015 Axillary Management [place] nodes alone Total Number of Nodes Removed 3 Total Nodes Positive 1 was positive for macromet measuring 1.0 cm with no extranodal extension Date of Last Surgical Procedure 02/16/2015 Histology Invasive ductal carcinoma No angiolymphatic invasion No perineural invasion Grade Low grade Tumor Staging from Staging System [id number] T1= tumor that measures less than 2 cm N1= one to three positive lymph nodes Stage 2 --good prognosis Size of Primary Malignancy 0.7 cm Margin negative with re-excision ER--estrogen receptor positive MI-progesterone receptor positive HER-2 negative Endocrine Therapy Recommended for Hormone Sensitive Invasive Tumor yes Adjuvant Chemotherapy Start Date 03/29/2015 Adjuvant Chemotherapy Regimen Dose dense - Adriamycin also called doxorubicin with cytoxan (AC) for four cycles followed by twelve cycles of paclitaxel Adjuvant Chemotherapy-date completed 08/16/2015 First Adjuvant Endocrine Therapy Anastrazole Dates of radiation 09/06/2015 through 10/22/2015 Radiation [place] Whole breast with supraclavicular fossa and left axilla Radiation Boost yes Total Dosage of Radiation 60.4 Gy Other 10/27/[address] Baltazar for thickened endometrial stripe, w/endometrial bx. ?? Path: Small fragment of highly atypical epithelium suspicious for ca intermixed w/atrophic endometrium & cervical mucus. DISCUSSION: Small fragment of highly atypical endometrial tissue w/increased mitotic activity suspicious for ca. On deeper levels (IHC slides) this focus is significantly smaller but shows moderate positivity for p53 & is strongly + for p16 & serous ca cannot be excl uded. Rec endometrial curettings to further characterize. ?? 11/16/15 robotic assisted laparoscopicTAH-BSO w/B total pelvic lymphadenectomy. EUA showed small anteverted uterus w/no adnexal mass. Omentum adherent to anterior abdominal wall along prior incision. ?? Path: No malignancy in uterus/cervix/B tubes/B ovaries. R pelvic sentinel lymph node neg for malignancy. 3 R pelvic lymph nodes neg for malignancy. 6 L pelvic lymph nodes neg for malignancy. DISCUSSION: Entire endometrial lining & lower uterine segment submitted for histologic eval, & no caidentified in any sxn. There is not enough material present in previous bx ([id number]) to perform mi smatch repair IHC. Cytopath: Pelvic wash neg for malignancy. ?? Late effects of treatment DEXA ordered Surveillance mammogram 01/01/2018--no mammographic evidence of malignancy Lifetime Dose Tracking: ??? doxorubicin: 238.563 mg/m2 (496.8 mg) = 59.64 % of the maximum lifetime dose of 400 mg/m2 Follow-up and Survivorship Care Monitor for ongoing toxicities: Advance Directive: Designated durable power of contract attorney (DPOA): Surveillance: Primary Care Provider: Follow-up at least yearly for health maintenance Medical Oncology: Follow up every six months Surgeon: follow up yearly Radiation Oncology: follow- every six months year one then yearly as needed Mammogram: yearly Breast self exam: monthly Possible late and long term care administrator effects of treatment: Side effect of aromatase inhibitor drugs (AI) : You are taking Anastrozole which is an AI associated with hot flashes, night sweats, mood swings, vaginal dryness, arthralgias (joint pain) nausea, andloss of bone density. Bone density with Dexa scans needs to be done every two years. If your density falls below - 2.0 you should be started on a bisphosphonate medication. AI drugs may also increase your cholesterol level by about 10% and it may increase your blood pressure. The vaginal dryness canbe managed with topical nonhormonal lubricants such as Replens, Astroglide, or Hydeal-D, and the joint pain with fish oil, glucosamine, or a two week drug holiday. Skin changes at the site of radiation. Late effects include change in pigmentation, skin thickening, retraction and fibrosis (scar tissue) and formation of telangiectasias (small red lines on skin--this can occur several years after completion of treatment and is cosmetic only) Chest wall tightness can occur as a result of radiation therapy. Stretching exercises are recommended every day to minimize this risk and to promote long term care administrator good shoulder range of motion Lymphedema of the breast and arm are caused by lymph node dissection and fibrosis (scars) from radiation therapy and surgery. Report any swelling to your cancer team. You may require physical therapyfor manual lymphatic drainage and/or compression sleeve. Peripheral neuropathy is characterized by numbness, tingling, pain, temperature sensitivity either cold or hot. This is not expected in your case but if present this should diminish over time. It maynot completely resolve and may require further assessment and treatment. Discuss this with your cancer team. Bone Health: You are post menopausal and taking Anastrozole that can cause bone mass loss. It is recommended that you have a bone density exam every two years. Take calcium 1200mg a day and vitamin D3 1000 to 2000 IU a day. Weight bearing exercise can also reduce bone mass loss. Alteration in sexual function: Cancer diagnosis and treatment can cause changes in sexual function.You are encouraged to discuss this with your cancer care team. There are no restrictions in being sexually active. Water, oil or silicone-based lubricants or vaginal moisturizers can help with vaginal dryness. Different sexual positions may be more comfortable. Topical lidocaine can be useful in the event of pain with intercourse Pain: Discuss any problems with persistent pain with your cancer team. Cognitive function change: Growing evidence supports the validity that there may be memory changes with cancer treatment. Cancer associated cognitive change (chemo-brain) is not a progressive neurological disorder like progressive dementia. There are resources for testing. Use of memory aides like notebooks, and planners, keeping items in the same place, using reminder notes can be helpful. Avoidmulti-tasking and minimize distractions especially at work. Limit the use of alcohol and other substances that can affect cognition. Exercise, adequate sleep and relaxation and stress management can be helpful. Please discuss your concerns with your cancer team. Anxiety depression: Survivors of cancer treatment are at high risk for anxiety and depression due to multiple stressors, feeling vulnerable and the many challenges that you have faced and continue toface. Fear of recurrence is normal. Let your providers know if you have any of these symptoms--frequent feelings of being nervous, restless or worried or fearful, trouble sleeping, difficulty concentrating, less interest or enjoyment of usual activities, feeling sad or depressed, difficulty performing your usual activities. Cardiac Toxicities: As part of your cancer treatments you were given medication and radiation therapy that potentially can have effects on your heart. It is recommended that you have a thorough clinical screening for your heart if you have any cardiac symptoms such as persistent fatigue, shortness of breath, cough. This workup could include an ECHO. If abnormal or symptomatic a referral to cardiology should be made. If you have received radiation therapy to the chest you should be screened for heart disease and have an ECHO five to ten years after completion of treatment. Report persistent fatigue and shortness of breath or chest pain. The technique that was used to treat your breast cancer limited any exposure to the heart to a very low level to reduce long-term effects on the heart. PCP follow up: Yearly exams for health maintenance and preventative care. Yearly gynecologic exams for women's health care with either medical staff credentialing coordinator or primary care provider. LIFE STYLE: Exercise: Many studies now show that women who exercise and who do not gain weight reduce their risk of breast cancer recurrence. Engage in at least 20-30 minutes of moderate intensity activity on most days of the week. Include strength training exercises at least two days a week. Alcohol: Minimize alcohol intake to no more than one drink a day. Nutrition: Follow the [employer] Guidelines that include the following: limit consumption of processed meat and red meat; eat at least 2.5 cups of vegetables and fruits daily; choose whole grains instead of refined grain products. High fiber and low fat diet is advised. Smoking: smoking increases the risk of breast cancer and other cancers Sunscreen should be used prolonged sun exposure, ie longer than 15 minutes. Screening: Colonoscopy at age 50, yearly pelvic exams, bone density when menopausal, fasting lipid profile as indicated and at the discretion of you primary care provider and all other age appropriate screenings that need to be done yearly Vaccinations: Immunization of inactivated vaccines is recommended for cancer survivors. This includes flu vaccines yearly. Pneumonia vaccine is recommended per CDC guidelines for pneumonia vaccine--primary care provider would administer this. Potential signs of recurrence: Any symptom lasting more than 2 weeks and not improving--persistent pain, cough, shortness of breath, headache. Any change in skin at treatment site from post treatmentbaseline or new lump or nipple discharge. Resources: Helpful websites www. cancer.gov -- National Cancer [place] www. nccn.org -- National Comprehensive Cancer Network www. canceradvocacy. org --National Coalition for Cancer Survivorship www. livestrong. org -- [employer] Survivor Care www. acscsn.org -- Cancer Survivors Network Survivorship care provider contacts MEDICAL TECHNICAL WRITER: Ana Paula Nava
--- OUTSIDE RECORDS SUMMARY | 2024-02-04 18:37 | XMS_ITS | Encounter Summary ---
Author Organization [facility] [place] [address] Care Team Providers Care Shoe Salesperson Name Role Phone Lisa Zacarias APRN Primary Care Provider [phone] Encounter Details Date Type Department Care Team (Latest Contact Info) Description 06/07/2023 10:00 AM EST Laboratory Appointment Lab [address] [place] [address] Malignant neoplasm of upper-outer quadrant of left breast in female, estrogen receptor positive; Pulmonary nodule, left Social History Tobacco Use Types Packs/Day Years Used Date Smoking Tobacco: Former Cigarettes 1 30 1 - 04/05/2019 Smokeless Tobacco: Never Alcohol Use Standard Drinks/Week Comments No 0 (1 standard drink = 0.6 oz pur e alcohol) Sex and Gender Information Value Date Recorded Sex Assigned at Not on file Gender Identity Not on file Sexual Orientation Not on file documented as of this encounter Plan of Treatment Upcoming Encounters Date Type Department Care Team (Late st Contact Info) Description 12/04/2024 11:00 AM EDT Office [place] [phone] Roddy Olson MD [facility] [place] [address] documented as of this encounter Procedures Procedure Name Priority Date/Time Associated Diagnosis Comments CREATININE STAT 06/07/2023 9:53 AM EST Malignant neoplasm of upper-outer quadrant of left breast in female, estrogen receptor positive Pulmonary nodule, left documented in this encounter Results * Creatinine (06/07/2023 9:53 AM EST) Creatinine 0.81 0.70 - 1.20 mg/dL [facility] Est Glomerular Filtration Rate 80 >=60 mL/min/1. 73 m?? [facility] Comment: This patient's estimated GFR was calculated using the 2020 CKD-EPI equation. The estimated GFR can vary from the measured GFR by up to 30% in the absence of rapidly changing kidney function. Assessment of the estimated GFR is not appropriate when creatinine concentrations are rapidly changing. For clinical situations in which a more precise estimate of GFR is necessary, consider alternative methods of GFR estimation such as a 24-hour urine creatinine clearance. Assignment of CKD stage 1-5 for patients with an eGFR near the transition point between stages may be based on clinical assessment of muscle mass and symptoms in addition to eGFR. Blood 06/07/2023 9:53 AM EST 06/07/2023 10:00 AM EST Narrative Resulting Agency Comment Spec In Lab Roddy Olson MD CHEMISTRY ORDERABLE S Performing Organization Address City/State/[facility] Co de Phone Number [facility] [place] [address] documented in this encounter Visit Diagnoses Diagnosis Malignant neoplasm of upper-outer quadrant of left breast in female, estrogen receptor positive Pulmonary nodule, left Solitary pulmonary nodule documented in this encounter Care Teams Shoe Salesperson Relationship Specialty Start Date End Date Lisa Zacarias, INVENTORY CONTROL MANAGER PCP - General Family Medicine 01/08/19 documented as of this encounter
--- OUTSIDE RECORDS SUMMARY | 2024-02-04 18:37 | XMS_ITS | Encounter Summary ---
Author Organization [facility] Address [facility] [place] [address] Care Team Providers Care Livestock Caretaker Name Role Phone Lisa Zacarias APRN Primary Care Provider [phone] Encounter Details Date Type Department Care Team (Late st Contact Info) Description 12/05/2023 Orders [place] [address] Blanche Sandoval, RN Social History Tobacco Use Types Packs/Day Years [...] AM EDT Office [place] [address] Roddy Olson MD [facility] [place] [address] documented as of this encounter Visit Diagnoses Not on filedocumented in this encounter Care Teams Livestock Caretaker Relationship Specialty Start Date End Date Lisa Zacarias APRN PCP - General Family Medicine 01/08/19 documented as of this encounter
--- OUTSIDE RECORDS SUMMARY | 2024-02-04 18:37 | XMS_ITS | Encounter Summary ---
Author Organization [facility] [place] [address] Care Team Providers Care Hopper Filler Name Role Phone Lisa Zacarias BAUTISTA Primary Care Provider [phone] Reason for Referral * Diagnostic Test (Routine) - Closed Specialty Diagnoses / Procedures Referred By Saad escobar Referred To Contact Radiology Diagnoses Malignant neoplasm of upper-outer quadrant of left breast in female, estrogen receptor positive Pulmonary nodule, left Procedures CT Chest wo Contrast (Generic) Roddy Olson MD [facility] DR THORAC[place] [address] [facility] [place] [address] Referral ID Status Reason Start Date Expiration Date V isits Requested Visits Authorized [id number] Closed Specialty Service Requested 06/07/2023 12/06/2024 1 1 Reason for Visit * Reason Comments Follow-up Encounter Details Date Type Department Care Team (Late st Contact Info) Description 06/07/2023 1:30 PM EST Office [place] [address] Roddy Olson MD [facility] DR THORACIC [place] [address] Malignant neoplasm of upper-outer quadrant of left [...] on file documented as of this encounter Last Filed Vital Signs Vital Sign Reading Time Taken Comments Blood Pressure 128/82 06/07/2023 1:39 PM EST Pulse 84 06/07/2023 1:39 PM EST Temperature 36.5 ??C (97.7 ??F) 06/07/2023 1:39 PM ES T Respiratory Rate 18 06/07/2023 1:39 PM EST Oxygen Saturation 98% 06/07/2023 1:39 PM EST Inhaled Oxygen Concentration - - Weight 97 kg (213 lb 13.5 oz) 06/07/2023 1:39 PM EST Height 167.6 cm (5' 6) 06/07/2023 1:39 PM EST Body Mass Index 34.52 06/07/2023 1:39 PM EST documented in this encounter Patient Instructions * Patient Instructions* Blanche Sandoval RN - 06/07/2023 1:30 PM EST Thank you for visiting Dr. Olson in clinic 06/07/23 Dr. Olson would like to see you back in clinic in 6 months with a recent CT scan of your chest without IV contrast. You will receive a letter in the mail/ receive a call to schedule this appointment. Exercise each day for 30 minutes or longer. Daily aerobic exercise for at least 30 minutes will help improve your endurance and improve the breathing capacity of your lungs. This means that you are breathing hard, your heart is beating fast and that you are sweating. Examples of this include walking, biking, swimming, and using a treadmill or stationary bike. Please call Thoracic surgery at with any questions or concerns. documented in this encounter Progress Notes * Sergio Jensen PA - 06/07/2023 1:30 PM EST Thoracic Surgery Outpatient Consultation Note MD Sergio Mix PA-C [place] [id number] Today, 06/07/2023, we saw Ms. Kelley Jensen in follow-up regarding a LISA lung nodule. She was last seen on 02/22/2023, at which time plan was to complete a short course of antibiotics and obtain repeat CT Chest in about 4 months. Since then, patient has been feeling well overall, denies interval ED visits, hospitalizations or procedures. She is currently breathing comfortably and denies fevers, weight loss, fatigue, night sweats or chills. On physical examination today, her height is 167.6 cm (5' 6) and weight is 97 kg (213 lb 13.5 oz).Her temporal temperature is 36.5 ??C (97.7 ??F). Her blood pressure is 128/82 and her pulse is 84. Her respiration is 18 and oxygen saturation is 98%. Body mass index is 34.52 kg/m??. In general, sheis in no acute distress. Her pupils are reactive. Her lungs are clear to auscultation bilaterally. Her heart has a regular rate with no murmurs. Her abdomen is soft and nontender. Her extremities arewarm with no edema. Neurologically, she is grossly intact. A Chest CT was performed today, 06/07/2023: Small irregular left upper lobe pulmonary nodule is not definitively changed compared to 02/02/2023, however, has increased in size compared to 202 is concerning for a primary pulmonary malignancy. --this looks slightly smaller on our read in clinic today In summary, Ms. Kelley Jensen is a 67 y.o. female with a LSIA lung nodule which appears grossly stable. We discussed the consensus recommendations of continued surveillance, particularly given the factthat the nodule has increased in size since 2021 and patient is a former smoker, increasing possibility of malignancy. We reviewed with her the recommended follow-up imaging plan of a Chest CT without contrast for which she will return to see us in about 6 months. Patient knows to call our office in the interim if any questions or concerns should arise at any time. Patient was seen and evaluated in conjunction with Dr. Olson. EMMETT Mccrary 06/07/2023 Thoracic Surgery [facility] I have seen the patient and reviewed the PA's above note and I agree with the details as written. Job personally reviewed the relevant imaging. The assessment and plan were formulated in discussion with me and I agree with them as documented. Roddy Olson MD * Roddy Olson MD - 06/07/2023 1:30 PM EST Today I saw Kelley Jensen in clinic with our PA, Pranay Jensen. Please see my addendum to his note. Roddy Olson MD documented in this encounter Plan of Treatment Upcoming Encounters Date Type Department Care Team (Late st Contact Info) Description 12/04/2024 11:00 AM EDT Office [place] [address] Roddy Olson MD [facility] DR THORACIC [place] [address] documented as of this encounter Results * CT Chest wo Contrast (Generic) (12/06/2023 9:42 AM EDT) WORKSTATION ID [id number] [facility] Anatomical Region Laterality Modality Chest Computed Tomogra phy Impressions 12/08/2023 11:14 PM EDT 1. ??Left upper lobe nodule is stable over recent prior exams dating back to 02/02/2023, although gradually increased in size since 2020. Differential includes a benign process versus indolent neoplasm. 2. ??Hepatic steatosis. Thank you for letting us participate in the care of this patient. ??If you are a health care provider and have any questions regarding this report, please contact the number below. ??For patients who have questions please contact the health health careers instructor that requested your imaging first. ? Narrative 12/08/2023 11:14 PM EDT EXAMINATION: CT CHEST WO CONTRAST (GENERIC) CLINICAL HISTORY: Abnormal xray - lung nodule, < 1 cm, mod-high risk Left upper lobe nodule, eval for chnages in size and appearance C50.412, Malignant neoplasm of upper-outer quadrant of left female breast - Z17.0, Estrogen receptor positive status (ER+) - R91.1, Solitary pulmonary nodule TECHNIQUE: Helical CT of the chest without intravenous contrast administration. Thin-section reconstructions as well as coronal and sagittal reformatted images were generated. COMPARISON: Multiple prior CT chest exams, most recently 06/07/2023 FINDINGS: Pulmonary parenchyma: The left upper lobe 5 x 6 x 10 mm triangular shaped pulmonary nodule is unchanged from the recent prior, first evident in 2020 measuring 3 mm. A few tiny right upper lobe rounded nodules are unchanged from 2020. Subpleural reticulation in the anterior left upper lobe is stable. Background centrilobular emphysema. Airways: No central endobronchial abnormality. Pleura: No effusion. Lymph nodes: No lymphadenopathy. Heart and vasculature: Normal size of the heart. Unchanged anterior pericardial effusion measuring 14 mm thickness. Normal caliber of the thoracic aorta and main pulmonary artery. Coronary artery and aortic root calcification. Other mediastinal structures: No additional findings. Chest wall: Stable posttreatment changes to be left breast with surgical clips noted in the upper-outer quadrant. Upper abdomen: Low attenuation of the liver suggesting steatosis. Skeletal structures: No suspicious osseous lesion. L1 sclerotic bone island is unchanged over multiple prior exams. Procedure Note Amina Jaimes MD - 06/08/2024 EXAMINATION: CT CHEST WO CONTRAST (GENERIC) CLINICAL HISTORY: Abnormal xray - lung nodule, < 1 cm, mod-high risk Left upper lobe nodule, eval for chnages in size and appearance C50.412, Malignant neoplasm of upper-outer quadrant of left female breast- Z17.0, Estrogen receptor positive status (ER+) - R91.1, Solitarypulmonary nodule TECHNIQUE: Helical CT of the chest without intravenous contrastadministration. Thin-section reconstructions as well as coronal and sagittal reformattedimages were generated. COMPARISON: Multiple prior CT chest exams, most recently 06/07/2023 FINDINGS: Pulmonary parenchyma: The left upper lobe 5 x 6 x 10 mm triangularshaped pulmonary nodule is unchanged from the recent prior, first evident [id number] measuring 3 mm. A few tiny right upper lobe rounded nodules are unchangedfrom 2019. Subpleural reticulation in the anterior left upper lobe is stable. Background centrilobular emphysema. Airways: No central endobronchial abnormality. Pleura: No effusion. Lymph nodes: No lymphadenopathy. Heart and vasculature: Normal size of the heart. Unchanged anteriorpericardial effusion measuring 14 mm thickness. Normal caliber of the thoracic aortaand main pulmonary artery. Coronary artery and aortic root calcification. Other mediastinal structures: No additional findings. Chest wall: Stable posttreatment changes to be left breast with surgicalclips noted in the upper-outer quadrant. Upper abdomen: Low attenuation of the liver suggesting steatosis. Skeletal structures: No suspicious osseous lesion. L1 sclerotic boneisland is unchanged over multiple prior exams. IMPRESSION 1. Left upper lobe nodule is stable over recent prior exams dating backto 02/02/2023, although gradually increased in size since 2020. Differentialincludes a benign process versus indolent neoplasm. 2. Hepatic steatosis. Thank you for letting us participate in the care of this patient. If youare a health care provider and have any questions regarding this report,please contact the number below. For patients who have questions please contactthe health health careers instructor that requested your imaging first. Roddy Olson MD IMG CT ORDERABLES documented in this encounter Visit Diagnoses Diagnosis Malignant neoplasm of upper-outer quadrant of left breast in female, estrogen receptor positive Pulmonary nodule, left Solitary pulmonary nodule Malignant neoplasm of upper-outer quadrant of left breast in female, estrogen receptor positive Pulmonary nodule, left Solitary pulmonary nodule documented in this encounter Care Teams Hopper Filler Relationship Specialty Start Date End Date Lisa Zacarias, WELDER MANUFACTURE PCP - General Family Medicine 01/08/19 documented as of this encounter
--- OUTSIDE RECORDS SUMMARY | 2024-02-04 18:37 | XMS_ITS | Encounter Summary ---
Author Organization [facility] Address [facility] [place] [address] Care Team Providers Care Campus Executive Director Name Role Phone Lisa Zacarias BAUTISTA Primary Care Provider [phone] Encounter Details Date Type Department Care Team (Latest Contact Info) Description 06/07/2023 11:38 AM EST - 06/07/2023 11:59 PM [facility] En[place] [phone] Malignant neoplasm of upper-outer quadrant of left breast in female, estrogen receptor positive; Pulmonary nodule, left Discharge Disposition: Home Social History Tobacco Use Types Packs/Day Years [...] on file documented as of this encounter Medications at Time of Discharge Medication Sig Dispensed Refills Start Date End Date Calcium Carbonate 600 mg calcium (1,500 mg) Tablet Take 600 mg by mouth daily. 07/26/2021 metFORMIN (Glucophage) 500 mg tablet Take 50 mg by mouth 2 times daily. 01/29/2023 cholecalciferol (Vitamin D3) 1,000 unit Tablet Take by mouth daily. cyanocobalamin, Vitamin B-12, (Vitamin B-12) 1,000 mcg Tablet Take 1,000 mcg by mouth daily. calcium citrate/vitamin D2 (ELLIOTT-CITRATE ORAL) Take by mouth 2 times daily. primidone (Mysoline) 50 mg Tablet Take 100 mg by mouth nightly. BIOTIN ORAL Take 10,000 mg by mouth daily. tiotropium-olodatero L (Stiolto Respimat) 2.5-2.5 mcg/actuation Mist Inhale 2 puffs into the lungs daily. buPROPion XL (Wellbutrin XL) 150 mg Tablet Extended Release 24 hr Take 150 mg by mouth 2 times daily. rosuvastatin (Crestor) 40 mg Tablet Take 40 mg by mouth daily. 09/20/2019 albuterol 90 mcg/actuation HFA Aerosol Inhaler Inhale 2 puffs into the lungs every 4 hours as needed for Wheezing. Use with spacer citalopram (CELEXA) 20 mg TabletIndications:Ma lignant neoplasm of left female breast, unspecified site of breast Take 1 tablet by mouth daily. 60 tablet 6 12/07/2016 ibuprofen (ADVIL;MOTRIN) 600 mg Tablet Take 1 tablet by mouth every 6 hours as needed for Pain. 40 tablet 11/17/2015 levothyroxine (SYNTHROID) 25 mcg Tablet Take by mouth daily. 0 01/15/2015 semaglutide (Ozempic) 0.25 mg or 0.5 mg(2 mg/1.5 mL) Pen Injector Inject 0.5 mg subcutaneously once a week. 12/21/2021 nicotine (Nicoderm CQ) 14 mg/24 hr Patch 24 hr Change 1 patch on the skin every 24 hours. anastrozole (Arimidex) 1 mg TabletIndications:Ma lignant neoplasm of upper-outer quadrant of left breast in female, estrogen receptor positive Take 1 tablet by mouth daily. 90 tablet 2 04/05/2020 loratadine (CLARITIN) 10 mg Tablet Take 10 mg by mouth daily. Reported on 06/12/2016 azithromycin (Zithromax) 250 mg tablet Take 1 tablet by mouth daily. Day1:take 2 tablets daily, Day 2-5:Take one tablet daily 6 tablet 02/22/2023 12/05/2023 documented as of this encounter Plan of Treatment Upcoming Encounters Date Type Department Care Team (Late st Contact Info) Description 12/04/2024 11:00 AM EDT Office [place] [address] Roddy Olson MD [facility] DR THORACIC [place] [address] documented as of this encounter Procedures Procedure Name Priority Date/Time Associated Diagnosis Comments COMMON PULMONARY FUNCTION TEST Routine 06/07/2023 1:15 PM EST Malignant neoplasm of upper-outer quadrant of left breast in female, estrogen receptor positive Pulmonary nodule, left documented in this encounter Results * Pulmonary Function Testing (06/07/2023 1:15 PM EST) FVC Actual Pre-BD 3.32 L COMPAS PFT FVC Pre-BD % of Predicted 106 % COMPAS PFT FVC Predicted 3.12 L COMPAS PFT FVC Lower Limits of Normal 2.29 L COMPAS PFT FVC Pre-BD Z-Score 0.39 COMPAS PFT FEV1 Actual Pre-BD 1.79 L COMPAS PFT FEV1 Pre-BD % of Predicted 74 % COMPAS PFT FEV1 Predicted 2.41 L COMPAS PFT FEV1 Lower Limits of Normal 1.77 L COMPAS PFT FEV1 Pre-BD Z-Score -1.59 COMPAS PFT FEV1 / FVC Actual Pre-BD 54 % COMPAS PFT FEV1/FVC Pre-BD Z-Score -2.82 COMPAS PFT [id number] Actual Pre-BD 0.54 % COMPAS PFT [id number] Predicted 2.03 % COMPAS PFT [id number] Pre-BD % of Predicted 27 % COMPAS PFT [id number] Pre-BD Z-Score -2.57 COMPAS PFT DLCO Hb Actual Pre-BD 10.99 mL/min/mmHg COMPAS PFT DLCO Hb Pre-BD % of Predicted 55 % COMPAS PFT DLCO Hb Predicted 20.07 mL/min/mmHg COMPAS PFT DLCO Hb Pre-BD Z-Score -3.4 COMPAS PFT DLCO UNC ACT PRE-BD 11.14 mL/min/mmHg COMPAS PFT DLCO UNC PRE-BD % of PRED 56 % COMPAS PFT DLCO UNC Predicted 20.07 mL/min/mmHg COMPAS PFT DLCO UNC PRE-BD Z-SCORE -3.33 COMPAS PFT Narrative COMPAS PFT - 06/07/2023 1:15 PM EST FINDINGS: FEV1 and FVC are normal, FEV1/VC is reduced. The SVC is larger than the FVC and was used to calculate FEV1/VC. Diffusion capacity not adjusted for hemoglobin is reduced. Normal resting oximetry. IMPRESSION: Spirometry demonstrates mild (FEV1 >70%) obstruction. Moderate reduction in diffusing capacity (DLCO 40 to 60%). Obstruction combined with a reduced diffusion capacity suggests emphysema. Procedure Note Jesus Fagan MD - 06/07/2023 FINDINGS: FEV1 and FVC are normal, FEV1/VC is reduced. The SVC is largerthan the FVC and was used to calculate FEV1/VC. Diffusion capacity not adjusted for hemoglobinis reduced. Normal resting oximetry. IMPRESSION: Spirometry demonstrates mild (FEV1 >70%) obstruction. Moderatereduction in diffusing capacity (DLCO 40 to 60%). Obstruction combined with a reduceddiffusion capacity suggests emphysema. Roddy Olson MD PFT ORDERABLES COMPAS PFT documented in this encounter Visit Diagnoses Diagnosis Malignant neoplasm of upper-outer quadrant of left breast in female, estrogen receptor positive Pulmonary nodule, left Solitary pulmonary nodule documented in this encounter Care Teams Campus Executive Director Relationship Specialty Start Date End Date Lisa Zacarias APRN PCP - General Family Medicine 01/08/19 documented as of this encounter
--- OUTSIDE RECORDS SUMMARY | 2024-02-04 18:37 | XMS_ITS | Encounter Summary ---
Author Organization [facility] [place] [address] Care Team Providers Care Physical Testing Supervisor Name Role Phone Lisa Zacarias APRN Primary Care Provider [phone] Reason for Referral * Diagnostic Test (Routine) - New Request Specialty Diagnoses / Procedures Referred By Saad escobar Referred To Contact Radiology Diagnoses Pulmonary nodule, left Procedures CT Chest wo Contrast (Generic) Roddy Olson MD [facility] [place] [address] [facility] [place] [address] Referral ID Status Reason Start Date Expiration Date Visits Requested Visits Authorized [id number] New Request Specialty Service Requested 12/06/2023 06/06/2025 1 1 Reason for Visit * Reason Comments Follow-up Encounter Details Date Type Department Care Team (Late st Contact Info) Description 12/06/2023 11:00 AM EDT Office [place] [address] Roddy Olson MD [facility] [place] [address] Pulmonary nodule, left Social History Tobacco Use [...] Sign Reading Time Taken Comments Blood Pressure 123/66 12/06/2023 10:12 AM EDT Pulse 78 12/06/2023 10:12 AM EDT Temperature 36.6 ??C (97.9 ??F) 12/06/2023 10:12 AM E DT Respiratory Rate 20 12/06/2023 10:12 AM EDT Oxygen Saturation 95% 12/06/2023 10:12 AM EDT Inhaled Oxygen Concentration - - Weight 94.5 kg (208 lb 5.4 oz) 12/06/2023 10:12 AM EDT Height 167.6 cm (5' 6) 12/06/2023 10:12 AM EDT Body Mass Index 33.63 12/06/2023 10:12 AM EDT documented in this encounter Patient Instructions * Patient Instructions* Leilani Davis RN - 12/06/2023 11:00 AM EDT Thank you for visiting Dr. Olson in clinic 12/06/23 Dr. Olson would like to see you back in clinic in 1 year with a recent CT scan of your chest without contrast. You will receive a letter in [...] documented in this encounter Progress Notes * Roddy Olson MD - 12/06/2023 11:00 AM EDT Thoracic Surgery Outpatient Consultation Note MD Sergio Mix PA-C [place] [id number] Today, 12/06/2023, I saw Ms. Kelley Jensen in follow-up regarding a LISA lung nodule. Since her last visit, she has been feeling well overall, denies interval ED visits, hospitalizations or procedures. She is currently breathing comfortably and denies fevers, weight loss, fatigue, night sweats or chills. She does note some fatigue and increased wheezing since the weather has changed. She also notes a bump on her right arm. On physical examination today, her BP 123/66 (Patient Position: Sitting) Pulse 78 Temp 36.6 ??C(97.9 ??F) (Temporal) Resp 20 Ht 167.6 cm (5' 6) Wt 94.5 kg (208 lb 5.4 oz) SpO2 95% BMI33.63 kg/m?? . In general, she is in no acute distress. Her pupils are reactive. Her extremities are warm with no edema. She appears to have a small bug bite on her posterior/lateral right upper arm w ith a small degree of associated swelling. Neurologically, she is grossly intact. A Chest CT was performed today, 12/06/2023, which I have personally reviewed, and shows: IMPRESSION 1. Left upper lobe nodule is stable over recent prior exams dating back to 02/02/2023, although gradually increased in size since 2020. Differential includes a benign process versus indolent neoplasm. 2. Hepatic steatosis. In summary, Ms. Kelley Jensen is a 68 y.o. female with a LISA lung nodule which appears grossly stable over the last year. We again discussed the differential diagnosis of possible early stage slow growing lung malignancy vs an infectious/inflammatory nodule or scar tissue. It has slightly changed in appearance since 2021 and she is a former smoker, increasing possibility of malignancy, though it does not have a typical appearance of a malignancy and is stable over the last year. We reviewed withher the recommended follow-up imaging plan of a Chest CT without contrast in either 6 or 12 months.She would prefer to return to see me in 12 months for continued surveillance. I suggested she contact her PCP's office regarding the right arm issue if this does not resolve andto contact her traffic agent if her wheezing does not improve. She knows to call our office in the interim if any questions or concerns should arise at any time. Roddy Olson MD 12/06/2023 documented in this encounter Plan of Treatment Upcoming Encounters Date Type Department Care Team (Late st Contact Info) Description 12/04/2024 11:00 AM EDT Office [place] [address] Roddy Olson MD [facility] [place] [address] Scheduled Orders Name Type Priority Associated Diagnoses Orde r Schedule CT Chest wo Contrast (Generic) Imaging Routine Pulmonary nodule, left Expected: 12/05/2024, Expires: 06/06/2025 documented as of this encounter Visit Diagnoses Diagnosis Pulmonary nodule, left Solitary pulmonary nodule documented in this encounter Care Teams Physical Testing Supervisor Relationship Specialty Start Date End Date Lisa Zacarias APRN PCP - General Family Medicine 01/08/19 documented as of this encounter
--- OUTSIDE RECORDS SUMMARY | 2024-02-04 18:37 | XMS_ITS | Data Portability ---
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 Name Role Phone CHASE GROSS Primary Care Provider Unav ailable [facility] Husbandry Person [facility] Thoracic Surgeon [facility] Neurologist Assessment Encounter Date Assessment Date Assessment LastModified by Organization Details LastModified Time 02/04/2024 02/04/2024 Problem list reviewed today [email or web address] Not available 02/04/2024 09:00:05 Plan of Treatment Reminders Order Date Submit Date Provider Last Modified By Organization Details Last Modified Time Details Appointments Follow Up 30 2023 08:00A Abner Chase Vu Not available Not available [facility] available [facility] 09:[facility]A M Chase Vu Not available Not available Not available Lab influe nza virus A + B + SARS-C oV-2 (COVID 19) Ag panel, rapid IA, upper respir atory specim en [address], [address] [place] [address], [address], 07/18/2023 13:51:26 RSV (respi ratory syncyt ial virus) , RNA, qual, PCR, unspec ified specim en - RSV DIRECTOR PROCESS IMPROVEMENT swab 2023 024 [email or web address] [facility] (Registration ), [address] [place] [address] [place], [address], 07/26/2023 15:20:56 magnes ium, serum or plasma [address] [facility] (Registration ), [address] [place] [address] [place], [address], 02/03/2024 06:27:40 vitami n B12, serum [address] [facility] (Registration ), [address] [place] [address] [place], [address], 02/03/2024 06:28:09 CMP, serum or plasma 2023 024 [facility] (Registration ), [address] [place] [address] [place], [address], 08/21/2023 16:44:23 LDL, direct , serum [address] [facility] (Registration ), [address] [place] [address] [place], [address], 08/29/2023 10:27:40 HDL choles terol, serum [address] [facility] (Registration ), [address] [place] [address] [place], [address], 08/29/2023 10:27:41 CK (creat ine kinase ), total, serum 2023 024 [facility] (Registration ), [address] [place] [address] [place], [address], 08/21/2023 16:44:24 vitami n D, 25-hyd charlie, total, serum 2023 024 [facility] (Registration ), [address] [place] [address] [place], [address], 02/04/2024 17:35:37 HbA1c (hemog lobin A1c), blood 2023 024 [facility] (Registration ), [address] [place] [address] [place], [address], 02/04/2024 14:13:41 TSH, serum or plasma 2023 [facility] (Registration ), [address] [place] [address] [place], [address], 02/04/2024 14:13:41 Referral None record ed. Procedures None record ed. Surgeries None record ed. Imaging MAMMO, screen ing, digita l, bilate ral - Due mid NOVEMB ER 2023 024 [facility] (Radiology), [address] [place] [address] [place], [address], 02/04/2024 14:13:41 Medication Orders predni sone 20 mg tablet 2023 024 [facility], [address] [place], [address], 08/01/2023 09:02:59 Tessal on Perles 100 mg capsul e 2023 024 [facility], [address] [place], [address], 08/01/2023 09:02:52 Zithro max Z-Sloan 250 mg tablet 2023 024 [facility], [address] [place], [address], 08/01/2023 09:02:48 valacy clovir 1 gram tablet 2023 024 [facility], [address], [address], [place], [address], 08/01/2023 09:43:45 Stiolt o Respim at 2.5 mcg-2. 5 mcg/ac tuatio n soluti on for inhala tion 2023 024 [facility], [address], [address], [place], [address], 08/01/2023 09:25:08 escita lopram 10 mg tablet 2023 024 [facility], [address] [place], [address], 08/21/2023 10:01:11 rosuva statin 40 mg tablet 2023 024 [facility], [address] [place], [address], 08/21/2023 10:01:11 levoth yroxin e 25 mcg tablet 2023 024 [facility], [address] [place], [address], 08/21/2023 10:01:13 Patient TargetsNo targets recorded. Patient Instructions Encounter Date Encounter Id Patient Instructions Last Modified By Organization Details Last Modified Time 07/18/2023 [id number] Kelley: use your rescue inhaler Proair every 4 hours while you are sick- use with a spacer start tessalon perles cough pills three times a day start prednisone for COPD- take once a day with food (start today) start antibiotics today for COPD follow up in 2 weeks for COPD- sooner if you get worse (fever, shortness of breath, worse cough) mike Not available 07/18/2023 11:38:10 08/01/2023 [id number] Kelley: do your vertigo exercises- if no improvement call for an appt use antiviral for rash- hip symptoms (typically occurs with increased stress or illness) use prednisone if you have another COPD exacerbation and have to wait for an appt. keep your follow up appt with Barbara mckeon Not available 08/01/2023 09:39:02 08/21/2023 [id number] Kelley: start flonase for your vertigo- use for at least 4-6 weeks.- if it doesnt work call and I will order nasal fluticasone through [facility] checking kidney function, B12, magnesium and cholesterol levels today- will mail home results follow up in 6 months for hypothyroid and prediabetes [email or web address] Not available 08/21/2023 09:32:41 Reason for Referral None Reported. Results Created Date Observation Date Name Description Value Unit Range Abnormal Flag LastModifiedBy Organization Detail LastModifiedTime 07/18/19 24 07/18/2023 COVID /FLU/ RSV PCR source NASOPH ARYNX Not Available [address] [place], [address] 07/18/2023 16:26:50 07/18/19 24 07/18/2023 COVID /FLU/ RSV PCR covid-19 PCR Negati ve negati ve Not Available [address] [place], [address] 07/18/2023 16:26:50 07/18/19 24 07/18/2023 COVID /FLU/ RSV PCR influenza A PCR Negati ve negati ve Not Available [address] [place], [address] 07/18/2023 16:26:50 07/18/19 24 07/18/2023 COVID /FLU/ RSV PCR influenza B PCR Negati ve negati ve Not Available [address] [place], [address] 07/18/2023 16:26:50 07/18/19 24 07/18/2023 COVID /FLU/ RSV PCR RSV PCR Negati ve negati ve Not Available [address] [place], [address] 07/18/2023 16:26:50 07/18/19 24 07/18/2023 influ gracie virus A + B + SARS- CoV-2 (COVI D19) Ag panel , rapid IA, upper respi rator y speci men Influenza A negati ve Not Available [address], [place], [address], 07/18/2023 11:49:46 07/18/19 24 07/18/2023 influ gracie virus A + B + SARS- CoV-2 (COVI D19) Ag panel , rapid IA, upper respi rator y speci men Influenza B negati ve Not Available [facility] [address] [place], [address], 07/18/2023 11:49:46 07/18/19 24 07/18/2023 influ gracie virus A + B + SARS- CoV-2 (COVI D19) Ag panel , rapid IA, upper respi rator y speci men SARS-COV-2 negati ve Not Available [facility] [address] [place], [address], 07/18/2023 11:49:46 07/18/19 24 07/18/2023 influ gracie virus A + B + SARS- CoV-2 (COVI D19) Ag panel , rapid IA, upper respi rator y speci men Sample sent for PCR confirmation No Not Available [facility] [address] [place], [address], 07/18/2023 11:49:46 08/21/19 24 08/21/2023 COMPR EHENS JORGE METAB OLIC PANEL calcium 9.9 mg/dL 8.5-10 .1 normal Not Available [address] [place], [address] 08/21/2023 16:44:22 08/21/19 24 08/21/2023 COMPR EHENS JORGE METAB OLIC PANEL glucose 106 mg/dL 74-106 normal Not Available [address] [place], [address] 08/21/2023 16:44:22 08/21/19 24 08/21/2023 COMPR EHENS JORGE METAB OLIC PANEL BUN 14 mg/dL 7-18 normal Not Available [address] [place], [address] 08/21/2023 16:44:22 08/21/19 24 08/21/2023 COMPR EHENS JORGE METAB OLIC PANEL creatinine 0.9 mg/dL 0.55-1 .02 normal Not Available [address] [place], [address] 08/21/2023 16:44:22 08/21/19 24 08/21/2023 COMPR EHENS JORGE METAB OLIC PANEL estimated GFR 69.64 mL/min /1.73m 2 Not Available [address] [place], [address] 08/21/2023 16:44:22 08/21/19 24 08/21/2023 COMPR EHENS JORGE METAB OLIC PANEL total protein 7.0 g/dL 6.4-8. 2 normal Not Available [address] [place], [address] 08/21/2023 16:44:22 08/21/19 24 08/21/2023 COMPR EHENS JORGE METAB OLIC PANEL albumin 3.7 g/dL 3.4-5. 0 normal Not Available [address] [place], [address] 08/21/2023 16:44:22 08/21/19 24 08/21/2023 COMPR EHENS JORGE METAB OLIC PANEL bilirubin, total 0.3 mg/dL 0.2-1. 0 normal Not Available [address] [place], [address] 08/21/2023 16:44:22 08/21/19 24 08/21/2023 COMPR EHENS JORGE METAB OLIC PANEL alk phos 79 U/L 46-116 normal Not Available Dagoberto linda [address] [place], [address] 08/21/2023 16:44:22 08/21/19 24 08/21/2023 COMPR EHENS JORGE METAB OLIC PANEL sodium 140 mmol/ L 136-14 5 normal Not Available [address] [place], [address] 08/21/2023 16:44:22 08/21/19 24 08/21/2023 COMPR EHENS JORGE METAB OLIC PANEL potassium 4.4 mmol/ L 3.5-5. 1 normal Not Available [address] [place], [address] 08/21/2023 16:44:22 08/21/19 24 08/21/2023 COMPR EHENS JORGE METAB OLIC PANEL chloride 105 mmol/ L 98-107 normal Not Available [address] [place], [address] 08/21/2023 16:44:22 08/21/19 24 08/21/2023 COMPR EHENS JORGE METAB OLIC PANEL CO2 26.1 mmol/ L 21.0-3 2.0 normal Not Available [address] [place], [address] 08/21/2023 16:44:22 08/21/19 24 08/21/2023 COMPR EHENS JORGE METAB OLIC PANEL anion gap 8.9 mmol/ L 3-11 normal Not Available [address] [place], [address] 08/21/2023 16:44:22 08/21/19 24 08/21/2023 COMPR EHENS JORGE METAB OLIC PANEL AST 27 U/L 15-37 normal Not Available [address] [place], [address] 08/21/2023 16:44:22 08/21/19 24 08/21/2023 COMPR EHENS JORGE METAB OLIC PANEL ALT 42 U/L 14-59 normal Not Available [address] [place], [address] 08/21/2023 16:44:22 08/21/19 24 08/21/2023 HDL FLORENTINO STERO L HDL cholesterol 63 mg/dL 40-60 Not Available Shawn madsen [address] [place], [address] 08/21/2023 16:44:23 08/21/19 24 08/21/2023 DIREC T LDL CHOL direct LDL chol 103 mg/dL <100 high Not Available [address] [place], [address] 08/21/2023 16:44:24 08/21/19 24 08/21/2023 CREAT INE KINAS E creatine kinase 45 U/L 26-192 normal Not Available [address] [place], [address] 08/21/2023 16:44:24 08/21/19 24 08/21/2023 MAGNE SIUM magnesium 1.9 mg/dL 1.8-2. 4 normal Not Available [address] [place], [address] 08/21/2023 16:44:25 08/21/19 24 08/21/2023 VITAM IN B12 vitamin B12 1330 pg/mL 193-98 6 high Not Available [address] [place], [address] 08/21/2023 16:44:26 Result Notes None recorded. Problems Name Status Onset Date Resolution Date Notes Provider Name and Address Organization Details Recorded Time Alcohol dependence Completed 200201/13/2003 Problem Code: 303.90; Problem Code Type: ICD-9; Not Available [facility] 3 05:13:27 Hyperlipidemi a Active 2008 Problem Code: E78.5; Problem Code Type: ICD-10; CHANTEL NORWOOD-[address], [place], [address] , [facility], [facility] 4 22:31:43 Malignant tumor of cervix Completed 200102/04/2024 total hysterectomy 2014 CHANTEL NORWOOD-[address], [place], [address] , [facility] 4 09:07:48 Chronic obstructive pulmonary disease Active 201012/01/2019 - Comments only - Barbara Rojas DIRECTOR PROCESS IMPROVEMENT - 2019: PFT: Moderately severe obstructive airways disease with significant bronchodilato r response. This is associated with mild to moderate hyperinflatio n and air trapping, and moderate diffusion defect. Problem Code: J44.9; Problem Code Type: ICD-10; CHANTEL NORWOOD-[address]SE[address], [place], [address] , [facility]. 4 22:31:32 Herpes zoster Completed 200103/24/2002 Problem Code: 053.9; Problem Code Type: ICD-9; Not Available [facility] 3 05:13:27 History of clinical finding in subject Completed 200201/13/2003 Not Available [facility] 3 05:13:27 Hypothyroidis m Active 201003/05/2019 - Comments only - Roman Alegre PA-C - To continue on recently resumed SYNTHROID 25mcg QD Problem Code: E03.9; Problem Code Type: ICD-10; CHASE MATUTE, CHANTEL-BC [address], [place], [address] , [facility] 4 22:31:50 Essential hypertension Active 2013 Problem Code: I10; Problem Code Type: ICD-10; Not Available [facility] 3 05:13:28 Primary malignant neoplasm of female left breast Completed 201402/04/2024 04/04/2021 - Comments only - Barbara Rojas DIRECTOR PROCESS IMPROVEMENT - [facility] ONC: history of a T1N1 left-sided breast cancer that was ER positive. She underwent adjuvant chemotherapy after her partial mastectomy and then completed radiation therapy. She has now completed 5 years of aromatase inhibitor therapy. No signs of local or systemic recurrence and overall she is doing well. At this point I think she can return to her primary care doctor. She does not need anything specific in terms of breast cancer follow-up. She will need yearly mammograms for screening for a new breast cancer. Problem Code: C50.912; Problem Code Type: ICD-10; Removal Reason: changed to personal history of... CHASE MATUTE, CHANTEL-JOSEPHINE [address], [place], [address] , [facility] 4 09:06:26 Adult health examination Active 2015 Problem Code: Z00.00; Problem Code Type: ICD-10; Not Available [facility] 3 05:13:28 Anxiety disorder Active 2015 Problem Code: F41.9; Problem Code Type: ICD-10; CHASE MATUTE, MECHANICAL MAINTENANCE-BC [address], [place], [address] , [facility] 4 22:31:16 Xerostomia Active 2015 Problem Code: R68.2; Problem Code Type: ICD-10; Not Available [facility] 3 05:13:28 Insomnia Active 2015 Problem Code: G47.00; Problem Code Type: ICD-10; Not Available [facility] 3 05:13:28 Acute upper respiratory infection Completed 201711/16/2017 Problem Code: J06.9; Problem Code Type: ICD-10; Not Available Counts include 234 beds at the [facility] 3 05:13:28 Senile osteoporosis Active 02/12/2022 - Comments only - Barbara Rojas DIRECTOR PROCESS IMPROVEMENT - 08/2021 [facility] endo: Osteoporosis d/t AIs for breast CA. Tried Prolia X2 03/2020 & 08/2020, elevated PTH and low calcium intake. 03/2021 DEXA: LS-2.3 SD, LFN -1.0 SD, LH -0 SD, distal 1/3 FA -2.8 SD on T score, starting zoledronic acid. f/u 12 mos Problem Code: M81.0; Problem Code Type: ICD-10; CHASE MATUTE, [facility] [address], [place], [address] , [facility] 4 22:32:18 Joint pain Completed 201702/04/2024 Problem Code: M25.50; Problem Code Type: ICD-10; CHASE MATUTE, MECHANICAL MAINTENANCE-BC [address], [place], [address] , [facility] 4 09:08:06 Trochanteric bursitis of right hip Active 2017 Problem Code: M70.61; Problem Code Type: ICD-10; Not Available Counts include 234 beds at the [facility] 3 05:13:29 Onychomycosis due to dermatophyte Active 2018 Problem Code: B35.1; Problem Code Type: ICD-10; Not Available Counts include 234 beds at the [facility] 3 05:13:29 Restlessness and agitation Completed 201803/19/2019 Problem Code: R45.1; Problem Code Type: ICD-10; Not Available Counts include 234 beds at the [facility] 3 05:13:29 Pericardial effusion Active 2019 Not Available [facility] 3 05:13:29 Low back pain Active 201902/01/2020 - Comments only - Barbara Rojas DIRECTOR PROCESS IMPROVEMENT - XRAY 12/04/19:. The intervertebra l disc spaces appear fairly well maintained. moderate hypertrophic changes of facet joints of the lower lumbar spine. Mild hypertrophic endplate changes of vertebral bodies also noted throughout the lumbar region. There is no evidence spondylolysis or spondylolisth esis. Mild degenerative changes of SI joints noted. No evidence of fracture. Problem Code: M54.5; Problem Code Type: ICD-10; Not Available Counts include 234 beds at the [facility] 3 05:13:29 Benign neoplasm of skin Active 201902/28/2020 - Comments only - Barbara Rojas DIRECTOR PROCESS IMPROVEMENT - seen by [facility], benign in nature, f/u 1 year Problem Code: D23.9; Problem Code Type: ICD-10; Not Available Counts include 234 beds at the [facility] 3 05:13:29 Follicular cysts of skin and subcutaneous tissue Completed 201902/04/2024 02/28/2020 - Comments only - Barbara Rojas DIRECTOR PROCESS IMPROVEMENT - [facility]: epidermal inclusion cyst, declined tx Problem Code: L72.9; Problem Code Type: ICD-10; CHASE MATUTE, MECHANICAL MAINTENANCE-JOSEPHINE [address], [place], [address] , [facility]. 4 09:08:16 Removal of suture Completed 201903/04/2020 Problem Code: Z48.02; Problem Code Type: ICD-10; Not Available Counts include 234 beds at the [facility] 3 05:13:30 Nicotine dependence Active 2019 QUIT CHASE MATUTE, MECHANICAL MAINTENANCE-JOSEPHINE [address], [place], [address] , [facility] 4 09:19:55 Adhesive capsulitis of left shoulder Active 201904/16/2021 - Comments only - Barbara Rojas DIRECTOR PROCESS IMPROVEMENT - [facility] ortho- steroid injection provided almost complete relief and has improved ROM, continues with OTC analgesia and home exercise will f/u prn for injections Problem Code: M75.02; Problem Code Type: ICD-10; Not Available [facility] 3 05:13:30 Obesity Completed 202002/04/2024 Problem Code: E66.9; Problem Code Type: ICD-10; CHASE MATUTE, MECHANICAL MAINTENANCE-JOSEPH[address], [place], [address] , [facility] 4 09:08:49 Essential tremor Active 202007/27/2021 - Comments only - Barbara Rojas DIRECTOR PROCESS IMPROVEMENT - Follow[facility] neurolog[facility], most likely benign essential tremor no PD symptoms seen on exam, increase primidone 200 mg nightly, beta-lorena would be next best option. Problem Code: G25.0; Problem Code Type: ICD-10; CHASE MATUTE, MECHANICAL MAINTENANCE-JOSEPHINE [address], [place], [address] , [facility] 4 22:31:37 Centriacinar emphysema Active 202012/22/2021 - Comments only - Barbara Rojas NP - [facility] pulmonology 11/2021: sx stable on stiolto, will continue, referred to pulmonary rehab Problem Code: J43.2; Problem Code Type: ICD-10; CHANTEL NORWOOD-JOSEPH[address], [place], [address] , [facility] 4 22:31:28 Body mass index 30+ - obesity Active 2021 Problem Code: Z68.34; Problem Code Type: ICD-10; CHANTEL NORWOOD-JOSEPH[address], [place], [address] , [facility] 4 09:08:40 Benign neoplasm of colon Active 2021 Problem Code: D12.6; Problem Code Type: ICD-10; Not Available [facility] 3 05:13:31 Hemorrhoids Active 2021 Problem Code: K64.8; Problem Code Type: ICD-10; Not Available Counts include 234 beds at the [facility] 3 05:13:31 Personal history of primary malignant neoplasm of breast Active 201404/04/2021 - Comments only - Barbara Rojas DIRECTOR PROCESS IMPROVEMENT - [facility] ONC: history of a T1N1 left-sided breast cancer that was ER positive. She underwent adjuvant chemotherapy after her partial mastectomy and then completed radiation therapy. She has now completed 5 years of aromatase inhibitor therapy. No signs of local or systemic recurrence and overall she is doing well. At this point I think she can return to her primary care doctor. She does not need anything specific in terms of breast cancer follow-up. She will need yearly mammograms for screening for a new breast cancer. CHANTEL NORWOOD-JOSEPHINE [address], [place], [address] , [facility] 4 09:06:11 Prediabetes Active 2022 Problem Code: R73.03; Problem Code Type: ICD-10; CHANTEL NORWOOD-JOSEPH[address], [place], [address] , [facility] 4 22:32:48 Otalgia of left ear Completed 202209/20/2022 Problem Code: H92.02; Problem Code Type: ICD-10; Not Available Counts include 234 beds at the [facility] 3 05:13:32 Lung field abnormal Completed 202202/04/2024 Problem Code: R91.8; Problem Code Type: ICD-10; CHANTEL NORWOOD-BC [address], [place], [address] , [facility] 4 09:07:59 Screening mammography Active 2022 Problem Code: Z12.31; Problem Code Type: ICD-10; Not Available Counts include 234 beds at the [facility] 3 05:13:32 Cough Completed 202108/16/2022 Problem Code: R05.8; Problem Code Type: ICD-10; Not Available Counts include 234 beds at the [facility] 3 05:13:42 Malaise Completed 202108/16/2022 Problem Code: R53.81; Problem Code Type: ICD-10; Not Available Counts include 234 beds at the [facility] 3 05:13:43 Localized eruption of skin Completed 201704/17/2019 Problem Code: R21; Problem Code Type: ICD-10; Not Available Counts include 234 beds at the [facility] 3 05:13:43 Acute sinusitis Completed 202108/16/2022 Problem Code: J01.90; Problem Code Type: ICD-10; Not Available Counts include 234 beds at the [facility] 3 05:13:43 Cough Completed 201403/19/2019 Problem Code: R05; Problem Code Type: ICD-10; Not Available Counts include 234 beds at the [facility] 3 05:13:43 Pelvic and perineal pain Completed 201503/19/2019 Problem Code: R10.2; Problem Code Type: ICD-10; Not Available Counts include 234 beds at the [facility] 3 05:13:44 Hypokalemia Completed 201706/17/2019 Problem Code: E87.6; Problem Code Type: ICD-10; Not Available Counts include 234 beds at the [facility] 3 05:13:44 Chronic constrictive pericarditis Completed 201903/28/2023 11/20/2019 - Comments only - Barbara Rojas DIRECTOR PROCESS IMPROVEMENT - [facility] cardiology: history of breast cancer s/p lumpectomy/ch emo/radiation , COPD and small pericardial effusion. This is likely in the setting of prior radiation. Her LV function is normal. No findings c/w constriction. This should not be causing her HUYNH. Will continue to follow this annually. Problem Code: I31.1; Problem Code Type: ICD-10; Not Available Counts include 234 beds at the [facility] 3 05:13:45 Nicotine dependence Completed 201808/10/2020 Problem Code: Z87.891; Problem Code Type: ICD-10; CHASE MATUET, MECHANICAL MAINTENANCE-BC [address], [place], [address] , [facility]. 4 09:19:55 Breast composition Completed 201405/31/2018 Not Available Counts include 234 beds at the [facility] 3 05:13:46 Bone density finding Completed 201703/28/2023 Problem Code: M85.80; Problem Code Type: ICD-10; Not Available Counts include 234 beds at the [facility] 3 05:13:46 Edema Completed 201503/19/2019 Problem Code: R60.9; Problem Code Type: ICD-10; Not Available Counts include 234 beds at the [facility] 3 05:13:48 Acute exacerbation of chronic obstructive pulmonary disease Completed 201804/17/2019 Problem Code: J44.1; Problem Code Type: ICD-10; Not Available [facility] [facility] 3 05:13:49 Edema Completed 201003/19/2019 Problem Code: R60.9; Problem Code Type: ICD-10; Not Available Counts include 234 beds at the [facility] 3 05:13:49 Fatigue Completed 201908/10/2020 Problem Code: R53.83; Problem Code Type: ICD-10; Not Available Counts include 234 beds at the [facility] 3 05:13:49 Imaging result abnormal Completed 201506/17/2019 Problem Code: R93.8; Problem Code Type: ICD-10; Not Available Counts include 234 beds at the [facility] 3 05:13:49 Impaired fasting glycemia Completed 201706/17/2019 Problem Code: R73.01; Problem Code Type: ICD-10; Not Available Counts include 234 beds at the [facility] 3 05:13:52 Nicotine dependence Completed 201606/17/2019 Problem Code: F17.200; Problem Code Type: ICD-10; CHASE MATUTE, MECHANICAL MAINTENANCE-BC [address], [place], [address] , [facility]. 4 09:19:55 Acute exacerbation of chronic obstructive pulmonary disease Completed 202108/16/2022 Problem Code: J44.1; Problem Code Type: ICD-10; Not Available [facility] 3 05:13:53 Pain of left shoulder joint Completed 201903/28/2023 Problem Code: M25.512; Problem Code Type: ICD-10; Not Available [facility] 3 05:13:53 Screening for malignant neoplasm of colon Completed 202108/16/2022 Problem Code: Z12.11; Problem Code Type: ICD-10; Not Available Counts include 234 beds at the [facility] 3 05:13:54 Follow-up visit Completed 202003/17/2021 Problem Code: Z09; Problem Code Type: ICD-10; Not Available Counts include 234 beds at the [facility] 3 05:13:54 Primary malignant neoplasm of uterine cervix Completed 200103/28/2023 Problem Code: 180.9; Problem Code Type: ICD-9; Not Available Counts include 234 beds at the [facility] 3 05:13:55 Primary malignant neoplasm of female breast Completed 201403/28/2023 Problem Code: C50.919; Problem Code Type: ICD-10; Not Available Counts include 234 beds at the [facility] 3 05:13:55 Tremor Completed 202003/28/2023 05/03/2021 - Comments only - Barbara Rojas DIRECTOR [facility]; essential tremor, does have some subtle PD findings on exam with questionable cogwheel rigidityAs well as reduced but present arm swing when walking we will monitor this.Caffeine and beta agonist inhalers can contribute to her tremor, Discussed slow reduction of caffeine to see if it improves her tremor.Unclea r if beta agonist can be changed but currently COPD not under her breast control.Beta- blockers are contraindicat ed due to her active COPD, Discussed starting primidone 25 mg at bedtime. Problem Code: R25.1; Problem Code Type: ICD-10; Not Available [facility] 3 05:13:56 Arthralgia of the ankle and/or foot Completed 201908/16/2022 Problem Code: M25.571; Problem Code Type: ICD-10; Not Available Counts include 234 beds at the [facility] 3 05:13:57 Dysphonia Completed 202108/16/2022 Problem Code: R49.0; Problem Code Type: ICD-10; Not Available Counts include 234 beds at the [facility] 3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
--- OUTSIDE RECORDS SUMMARY | 2024-02-04 18:37 | XMS_ITS | Encounter Summary ---
Author Organization [facility] [place] [address] Care Team Providers Care Salad Bar Clerk Name Role Phone Lisa Zacarias BAUTISTA Primary Care Provider Reason for Referral * Diagnostic Test (Routine) - Closed Specialty Diagnoses / Procedures Referred By Saad escobar Referred To Contact Radiology Diagnoses Malignant neoplasm of upper-outer quadrant of left breast in female, estrogen receptor positive Pulmonary nodule, left Procedures CT Chest wo Contrast (Generic) Roddy Olson MD [facility] [place] [address] [facility] [place] [address] Referral ID Status Reason Start Date Expiration Date V isits Requested Visits Authorized [id number] Closed Specialty Service Requested 06/07/2023 12/06/2024 1 1 Reason for Visit * Diagnostic Test (Routine) - Closed Specialty Diagnoses / Procedures Referred By Saad escobar Referred To Contact Radiology Diagnoses Malignant neoplasm of upper-outer quadrant of left breast in female, estrogen receptor positive Pulmonary nodule, left Procedures CT Chest wo Contrast (Generic) Roddy Olson MD [facility] [place] [address] [facility] Rad [address] Scan [place] [id number] Referral ID Status Reason Start Date Expiration Date V isits Requested Visits Authorized [id number] Closed Specialty Service Requested 06/07/2023 12/06/2024 1 1 Encounter Details Date Type Department Care Team (Latest Contact Info) Description 12/06/2023 9:34 AM EDT - 12/06/2023 11:59 PM EDT Hospital [place] [address] Roddy Olson MD [facility] [place] [address] Malignant neoplasm of upper-outer quadrant [...] ORAL Take 10,000 mg by mouth daily. tiotropium-olodateroL (Stiolto Respimat) 2.5-2.5 mcg/actuation Mist Inhale 2 [...] Use with spacer citalopram (CELEXA) 20 mg TabletIndications:Mal ignant neoplasm of left female breast, unspecified site [...] every 24 hours. anastrozole (Arimidex) 1 mg TabletIndications:Mal ignant neoplasm of upper-outer quadrant of left breast in female, estrogen receptor positive Take 1 tablet by mouth daily. 90 tablet 2 04/05/2020 loratadine (CLARITIN) 10 mg Tablet Take 10 mg by mouth daily. Reported on 06/12/2016 documented as of this encounter Plan of Treatment Upcoming Encounters Date Type Department Care Team (Late st Contact Info) Description 12/04/2024 11:00 AM EDT Office Visit [place] [address] Roddy Olson MD [facility] [place] [address] documented as of this encounter Procedures Procedure Name Priority Date/Time Associated Diagnosis Comments CT CHEST WO CONTRAST (GENERIC) Routine 12/06/2023 9:42 AM EDT Malignant neoplasm of upper-outer quadrant of left breast in female, estrogen receptor positive Pulmonary nodule, left documented in this encounter Results * CT Chest wo Contrast (Generic) (12/06/2023 9:42 AM EDT) [employer] Signature WORKSTATION ID [id number] RAD Anatomical Region Laterality Modality Chest Computed Tomogra [...] who have questions please contact the health care giver that requested your imaging first. ? Narrative [...] over multiple prior exams. Procedure Note Amina Mack MD - 12/08/2023 EXAMINATION: CT CHEST WO CONTRAST (GENERIC) CLINICAL [...] unchanged from the recent prior, first evident [id number] measuring 3 mm. A few tiny right [...] patients who have questions please contactthe health care giver that requested your imaging first. Electronically signed by: AMINA MACK MD, [facility]([phone]), at 12/08/2023 11:14 PM Roddy Olson MD IMG CT ORDERABLES documented in this encounter Visit Diagnoses Diagnosis Malignant neoplasm of upper-outer quadrant of left breast in female, estrogen receptor positive Pulmonary nodule, left Solitary pulmonary nodule documented in this encounter Care Teams Salad Bar Clerk Relationship Specialty Start Date End Date Lisa Zacarias, PANEL GLUER PCP - General Family Medicine 01/08/19 documented as of this encounter
--- OUTSIDE RECORDS SUMMARY | 2024-02-04 18:37 | XMS_ITS | Encounter Summary ---
Author Organization [facility] Address [facility] [place] [address] Care Team Providers Care Bar Tender Name Role Phone Lisa Zacarias APRN Primary Care Provider [phone] Encounter Details Date Type Department Care Team (Latest Contact Info) Description 12/06/2023 Travel Social History Tobacco Use Types Packs/Day Years [...] AM EDT Office [place] [address] Roddy Olson MD [facility] [place] [address] documented as of this encounter Visit Diagnoses Not on filedocumented in this encounter Care Teams Bar Tender Relationship Specialty Start Date End Date Lisa Zacarias APRN PCP - General Family Medicine 01/08/19 documented as of this encounter
--- OUTSIDE RECORDS SUMMARY | 2024-02-04 18:37 | XMS_ITS | Clinical Summary ---
Author Organization [facility] Address [facility] [place] [address] Care Team Providers Care Podiatry Teacher Name Role Phone Lisa Zacarias BAUTISTA Primary Care Provider [phone] Allergies No known active allergies Medications Medication Sig Dispensed Refills Start Date End Date Status levothyroxine (SYNTHROID) 25 mcg Tablet Take by mouth daily. 0 01/15/2015 Acti ve loratadine (CLARITIN) 10 mg Tablet Take 10 mg by mouth daily. Reported on 06/12/2016 Active ibuprofen (ADVIL;MOTRIN) 600 mg Tablet Take 1 tablet by mouth every 6 hours as needed for Pain. 40 tablet 11/17/2015 Active citalopram (CELEXA) 20 mg TabletIndications: Malignant neoplasm of left female breast, unspecified site of breast Take 1 tablet by mouth daily. 60 tablet 6 12/07/2016 Active albuterol 90 mcg/actuation HFA Aerosol Inhaler Inhale 2 puffs into the lungs every 4 hours as needed for Wheezing. Use with spacer Active rosuvastatin (Crestor) 40 mg Tablet Take 40 mg by mouth daily. 09/20/2019 Active anastrozole (Arimidex) 1 mg TabletIndications: Malignant neoplasm of upper-outer quadrant of left breast in female, estrogen receptor positive Take 1 tablet by mouth daily. 90 tablet 2 04/05/2020 Active tiotropium-olodate roL (Stiolto Respimat) 2.5-2.5 mcg/actuation Mist Inhale 2 puffs into the lungs daily. Active buPROPion XL (Wellbutrin XL) 150 mg Tablet Extended Release 24 hr Take 150 mg by mouth 2 times daily. Active nicotine (Nicoderm CQ) 14 mg/24 hr Patch 24 hr Change 1 patch on the skin every 24 hours. Active cholecalciferol (Vitamin D3) 1,000 unit Tablet Take by mouth daily. Act alla cyanocobalamin, Vitamin B-12, (Vitamin B-12) 1,000 mcg Tablet Take 1,000 mcg by mouth daily. Active calcium citrate/vitamin D2 (ELLIOTT-CITRATE ORAL) Take by mouth 2 times daily. Active primidone (Mysoline) 50 mg Tablet Take 100 mg by mouth nightly. Active BIOTIN ORAL Take 10,000 mg by mouth daily. Active metFORMIN (Glucophage) 500 mg tablet Take 50 mg by mouth 2 times daily. 01/29/2023 Active Calcium Carbonate 600 mg calcium (1,500 mg) Tablet Take 600 mg by mouth daily. 07/26/2021 Active semaglutide (Ozempic) 0.25 mg or 0.5 mg(2 mg/1.5 mL) Pen Injector Inject 0.5 mg subcutaneously once a week. 12/21/2021 Active Active Problems Problem Noted Date Diagnosed Date [...] female, estrogen receptor positive 03/11/2020 Osteopenia 03/11/2020 group home current use of aromatase inhibitor 04/2020 COPD (chronic obstructive pulmonary disease) 08/2018 Former smoker 12/08/2015 Overview (12/08/2015): 30 pack year history. Abnormal endometrial ultrasound 11/16/2015 Abnormal ultrasound of endometrium 11/10/2015 Obesity 11/10/2015 Overview (12/08/2015): BMI 32 Malignant neoplasm of upper- outer quadrant of left female breast 08/16/2015 Dietary counseling and surveillance 04/23/2015 Encounters Date Type Department Care Team Description 12/06/2023 11:00 AM EDT Office [place] [address] Roddy Olson MD Pulmonary nodule, left 12/06/2023 9:34 AM EDT - 12/06/2023 11:59 PM EDT [place] [address] Roddy Olson MD Malignant neoplasm of upper-outer quadrant of left breast in female, estrogen receptor positive; Pulmonary nodule, left Discharge Disposition: Home 12/06/2023 Travel 12/05/2023 Orders [place] [address] Blanche Sandoval RN from Last 3 Months Family History Medical History Relation Comments Anesthesia Reaction Neg Hx Breast Cancer Neg Hx Ovarian Cancer Neg Hx Social History Tobacco Use Types Packs/Day Years Used Date Smoking Tobacco: Former Cigarettes 1 30 1 - 04/05/2019 Smokeless Tobacco: Never Tobacco Cessation:Counseling Given: Not Answered Alcohol Use Standard Drinks/Week Comments No 0 (1 standard drink = 0.6 oz pur e alcohol) Sex and Gender Information Value Date Recorded Sex Assigned at Not on file Gender Identity Not on file Sexual Orientation Not on file Last Filed Vital Signs Vital Sign Reading [...] Mass Index 33.63 12/06/2023 10:12 AM EDT Plan of Treatment Upcoming Encounters Date Type Department Care Team (Late st Contact Info) Description 12/04/2024 11:00 AM EDT Office [place] [address] Roddy Olson MD [facility] [place] [address] Health Maintenance Due Date Last Done Comments CT Colonography 1955 FIT DNA 1955 FIT 1955 Sigmoidoscopy 1955 Pneumoccocal Vaccine: 65+ (1 of 2 - PCV) 1961 Hepatitis C Screening 1973 Tdap adult 1974 Tetanus vaccine 1974 Breast Cancer Share Decision Needed 1995 Zoster vaccine (1 of 2) 2005 Advance Directive 2010 Bone Density Scan 2020 Breast Cancer screening 01/08/2021 01/09/20 19, 01/01/2018, 12/21/2016, Additional history exists Covid-19 Vaccine (1 - 2022-2 4 season) 2023 Influenza (Flu) vaccine (1 o f 1 - Influenza standard series) 03/02/2024 Diabetes Screening (HgbA1C o r Glucose) 09/27/2024 09/27/2021, 01/28/2015 Colonoscopy 11/10/2026 11/10/2021, 10/30, 08/10/2016, Additional history exists Colorectal Cancer Screening 11/10/2026 Sigmoidoscopy (10 year) with FIT yearly 11/11/2031 11/10/2021, 11/10/2021, 08/10/2016, Additional history exists Procedures Procedure Name Priority Date/Time Associated Diagnosis Comments CT CHEST WO CONTRAST (GENERIC) Routine 12/06/2023 9:42 AM EDT Malignant neoplasm of upper-outer quadrant of left breast in female, estrogen receptor positive Pulmonary nodule, left COLONOSCOPY Routine 11/10/2021 10:40 AM EDT HC VENIPUNCTURE Routine 09/27/2021 5:04 PM EDT Osteoporosis, unspecified osteoporosis type, unspecified pathological fracture presence Weight gain MAMMO SCREENING CAD AND JOSE BILATERAL Routine 01/08/2019 9:42 AM EDT Encounter for screening mammogram for breast cancer from Last 3 Months or Most Recently Relevant to Health Maintenance Results * CT Chest wo Contrast (Generic) (12/06/2023 9:42 AM EDT) [employer] WORKSTATION ID [id number] RAD Anatomical Region Laterality Modality Chest Computed [...] who have questions please contact the health hospice home care coordinator that requested your imaging first. ? Electronically signed by: AMINA JAIMES MD, [facility] ([phone]), at 12/08/2023 11:14 PM Narrative 12/08/2023 11:14 PM EDT EXAMINATION: CT [...] exams. Procedure Note Amina Jaimes MD - 12/08/2023 EXAMINATION: CT CHEST WO [...] unchanged from the recent prior, first evident [id number] measuring 3 mm. A few tiny right upper lobe rounded nodules are unchangedfrom 2020. Subpleural reticulation in the anterior left [...] patients who have questions please contactthe health hospice home care coordinator that requested your imaging first. Roddy Olson MD IMG CT ORDERABLES * COLONOSCOPY (11/10/2021 10:40 AM EDT) COLONOSCOPY [facility] ___ Procedure Date: 11/10/2021 10:40 AM ? Patient Name: Kelley Jensen ? Date of : 1955 ? Age: 66 ? Order #: [id number] ? Instrument Name: -[id number] ? ___ Procedure: ? Colonoscopy Indications: ? High risk colon cancer ? surveillance: Personal history of ? colonic polyps Patient Profile: ? This is a 66 year old female. Refer ? to note in patient chart for ? documentation of history and ? physical. Providers: ? Lokesh Sheriff MD, Leta Roblero ? Nile Castellanos Referring : ?Lisa BeSachi Rell Medicines: ? Midazolam 8 mg IV, Fentanyl 275 ? micrograms IV, Diphenhydramine 25 ? mg IV Complications: ? No immediate complications. ___ Procedure: ? Pre-Anesthesia Assessment: ? - Prior to the procedure, a History ? and Physical was performed, and ? patient medications and allergies ? were reviewed. The patient's ? tolerance of previous anesthesia ? was also reviewed. The risks and ? benefits of the procedure and the ? sedation options and risks were ? discussed with the patient. All ? questions were answered, and ? informed consent was obtained. ? Prior Anticoagulants: The patient ? has taken no anticoagulant or ? antiplatelet agents. ASA Grade ? Assessment: II - A patient with ? mild systemic disease. After ? reviewing the risks and benefits, ? the patient was deemed in ? satisfactory condition to undergo ? the procedure. ? The procedure, indications, ? benefits, risks and alternatives ? were explained to the patient. ? Specifically discussed were ? potential complications including, ? but not limited to, bleeding, ? perforation, infection, missing a ? cancer, and adverse medication ? reactions. The patient was placed ? in the left lateral decubitus ? position, and a digital rectal exam ? was performed. The Colonoscope was ? inserted in the anus and under ? direct visualization, advanced to ? the terminal ileum, with ? identification of the appendiceal ? orifice and IC valve. Careful ? inspection was made as the ? colonoscope was withdrawn. The ? colonoscopy was technically ? difficult and complex due to ? restricted mobility of the colon, a ? redundant colon, significant ? looping and a tortuous colon. ? Successful completion of the ? procedure was aided by increasing ? the dose of sedation medication, ? withdrawing and reinserting the ? scope, withdrawing the scope and ? replacing with the pediatric ? colonoscope, straightening and ? shortening the scope to obtain ? bowel loop reduction, using scope ? torsion and applying abdominal ? pressure. The patient tolerated the ? procedure well. The terminal ileum, ? ileocecal valve, appendiceal ? orifice, and rectum were ? photographed. Scope withdrawal time ? was 12 minutes in addition to ? prolonged insertion time. The ? Colonoscope was inserted in the ? anus and under direct ? visualization, advanced to the ? terminal ileum, with identification ? of the appendiceal orifice and IC ? valve. Careful inspection was made ? as the colonoscope was withdrawn. ? Findings: ? Hemorrhoids were found on perianal exam. ? The colon (entire examined portion) was grossly ? redundant. Advancing the scope required withdrawing ? and reinserting the scope, withdrawing the scope and ? replacing with the pediatric colonoscope, ? straightening and shortening the scope to obtain ? bowel loop reduction, using scope torsion and ? applying abdominal pressure in addition to increased ? IV sedation. ? A 9 mm polyp was found in the hepatic flexure. The ? polyp was sessile. The polyp was removed with a cold ? snare. Resection and retrieval were complete. ? The terminal ileum appeared normal. ? Two sessile polyps were found in the ascending colon. ? The polyps were 4 to 5 mm in size. ? A 2 mm polyp was found in the ascending colon. The ? polyp was sessile. The polyp was removed with a cold ? biopsy forceps. Resection and retrieval were complete. ? Three sessile polyps were found in the recto-sigmoid ? colon. The polyps were 3 to 4 mm in size. These ? polyps were removed with a cold snare. Resection and ? retrieval were complete. ? Moderate Sedation: ? Moderate (conscious) sedation was administered by the ? endoscopy nurse and supervised by the endoscopist. ? The patient's oxygen saturation, heart rate, blood ? pressure and response to care were monitored. ? I was present during the intraservice time as ? documented by the sedation RN. Impression: ?- Hemorrhoids found on perianal ? exam. ? - Redundant colon. ? - One 9 mm polyp at the hepatic ? flexure, removed with a cold snare. ? Resected and retrieved. ? - The examined portion of the ileum ? was normal. ? - Two 4 to 5 mm polyps in the ? ascending colon. ? - One 2 mm polyp in the ascending ? colon, removed with a cold biopsy ? forceps. Resected and retrieved. ? - Three 3 to 4 mm polyps at the ? recto-sigmoid colon, removed with a ? cold snare. Resected and retrieved. Recommendation: ?- Repeat colonoscopy in 5 years for ? surveillance. ? - Recommend Deep Sedation with ? Monitored Anesthesia for future ? Colonoscopy. ? Attending Participation: ? I personally performed the entire procedure. ? I was present during the intraservice time as ? documented by the sedation RN. ? Dr. Richie Sheriff __ Lokesh Sheriff MD 11/10/2021 11:58:39 AM Number of Addenda: 0 Note Initiated On: 11/10/2021 10:40 AM PROVATION 11/10/2021 10:4 0 AM EDT Lisa Zacarias APRN GENERAL SURGICAL ORD ERABLES PROVATION * (ABNORMAL) Hemoglobin A1c (09/27/2021 5:04 PM EDT) Hemoglobin A1c 5.8(H) 4.3 - 5.6 % [facility] Comment: Reference Range: 4.3 - 5.6% 5.7 - 6.4% - Increased Risk of Developing Diabetes Mellitus >= 6.5% - Consistent with diagnosis of Diabetes Mellitus In the absence of hyperglycemia (i.e. plasma glucose > 200 mg/dL) or classic symptoms of hyperglycemia a repeat measurement of HbA1c should be performed on a separate sample to confirm the diagnosis. Diagnosis and Classification of Diabetes Mellitus, Diabetes Care 2013; 36: Suppl. 1, S67-74 Estimated Average Glucose 121 mg/dL [facility] Comment: eAG equivalents for HbA1c percentages: HbA1c(%) ?eAG(mg/dL) 6.0 ?126 6.5 ?140 7.0 ?154 7.5 ?169 8.0 ?183 8.5 ?197 9.0 ?212 9.5 ?226 10.0 ? 240 Limitations: The eAG calculation has not been validated on women, individuals below 18 years old and above 70 years old, and individuals with hemoglobinopathies. Additional resources are available on the ADA website. Spencer OSUNA, Gillian J, Shun R, et al. ??Translating the A1C assay into estimated average glucose values. ??Diabetes Care 2008:31(8):4726-9376. Blood 09/27/2021 5:04 PM EDT 09/27/2021 5:24 PM EDT Narrative Resulting Agency Comment Spec In Lab France Lopez MD CHEMISTRY ORDERABLES [facility] [place] [place] [address] * Mammo Screening Cad and Jose Bilateral (01/08/2019 9:42 AM EDT) Anatomical Region Laterality Modality Breast Bilateral Mammography Narrative 01/08/2019 9:59 AM EDT EXAMINATION: MAMMO SCREENING CAD AND JOSE BILATERAL REASON FOR EXAM: Screening. History of left breast cancer. TECHNIQUE: CC and MLO views were obtained of both breasts. Computer aided detection was used. 3D tomosynthesis images were obtained in addition to 2D images. COMPARISON: The study is compared with prior images. FINDINGS: Breast density: The breasts are heterogeneously dense, which may obscure small masses There are no suspicious microcalcifications, masses, or areas of distortion. There are post treatment changes in the left breast. CONCLUSION: No mammographic evidence of malignancy. RECOMMENDATION: Routine annual screening. BIRADS CATEGORY 2: BENIGN FINDINGS * ??Medical organizations agree that annual screening mammography beginning at age 40 saves the most lives. * ??The risks of screening are negligible compared to dying from breast cancer or suffering from more aggressive treatment required when detected at a later stage. * ??No woman is at low risk for breast cancer. * ??Some women, because of their family history, a genetic tendency, or certain other factors, should be screened with breast MRI along with mammograms. (The number of women who fall into this category is very small). The patient and health care provider should discuss the patient history and decide if earlier screening and breast MRI are appropriate. * ??Screening should continue as long as a woman is in good health and is expected to live 10 years or longer. * ??Screening mammography may not detect 10-15% of breast cancers. * ??Women should report any breast changes to a health care provider right away. Thank you for letting us participate in the care of this patient. For questions regarding this report, please contact the number below. ? Kiah Loomis APRN IMG MAMMO ORDERA BLES from Last 3 Months or Most Recently Relevant to Health Maintenance Advance Directives * Full Code (Latest Code Status on File) Date Activated Date Inactivated Comments 11/16/2015 9:59 AM 11/17/2015 2:21 PM Question Answer Comments Does patient have capacity to make decision: Yes Care Teams Podiatry Teacher Relationship Specialty Start Date End Date Lisa Zacarias APRN PCP - General Family Medicine 01/08/19
--- OUTSIDE RECORDS SUMMARY | 2024-02-04 18:37 | XMS_ITS | Encounter Summary ---
Author Organization [facility] [place] [address] Care Team Providers Care Strip Tank Tender Name Role Phone Lisa Zacarias BAUTISTA Primary Care Provider [phone] Reason for Referral * Diagnostic Test (Routine) - Closed Specialty Diagnoses / Procedures Referred By Saad escobar Referred To Contact Radiology Diagnoses Malignant neoplasm of upper-outer quadrant of left breast in female, estrogen receptor positive Pulmonary nodule, left Procedures CT Chest w Contrast Roddy Olson MD [facility] [place] [address] [facility] [place] [address] Referral ID Status Reason Start Date Expiration Date V isits Requested Visits Authorized [id number] Closed Specialty Service Requested 02/22/2023 08/25/2024 1 1 Reason for Visit * Diagnostic Test (Routine) - Closed Specialty Diagnoses / Procedures Referred By Saad escobar Referred To Contact Radiology Diagnoses Malignant neoplasm of upper-outer quadrant of left breast in female, estrogen receptor positive Pulmonary nodule, left Procedures CT Chest w Contrast Roddy Olson MD [facility] [place] [address] [facility] [place] [address] Referral ID Status Reason Start Date Expiration Date V isits Requested Visits Authorized [id number] Closed Specialty Service Requested 02/22/2023 08/25/2024 1 1 Encounter Details Date Type Department Care Team (Latest Contact Info) Description 06/07/2023 11:01 AM EST - 06/07/2023 11:37 AM EST Hospital Encounter [place] [address] Roddy Olson MD [facility] [place] [address] Malignant neoplasm of upper-outer quadrant of left [...] AM EDT Office Visit [place] [address] Roddy Olson MD [facility] [place] [address] documented as of this encounter Procedures Procedure Name Priority Date/Time Associated Diagnosis Comments CT CHEST W CONTRAST Routine 06/07/2023 1 1:18 AM EST Malignant neoplasm of upper-outer quadrant of left breast in female, estrogen receptor positive Pulmonary nodule, left documented in this encounter Results * CT Chest w Contrast (06/07/2023 11:18 AM EST) Anatomical Region Laterality Modality Chest Computed Tomogra phy Impressions 06/07/2023 7:04 PM EST Small irregular left upper lobe pulmonary nodule is not definitively changed compared to 02/02/2023, however, has increased in size compared to 202 is concerning for a primary pulmonary malignancy. Thank you for letting us participate in the care of this patient. ??If you are a health care provider and have any questions regarding this report, please contact the number below. ??For patients who have questions please contact the health pharmacy care coordinator that requested your imaging first. ? Narrative 06/07/2023 7:04 PM EST EXAMINATION: CT CHEST W CONTRAST CLINICAL HISTORY: Abnormal xray - lung nodule, < 1 cm, mod-high risk; Pneumonia, unresolved TECHNIQUE: Chest CT with 58 ml of Omnipaque 350 COMPARISON: 02/02/2023 FINDINGS: Pulmonary parenchyma: 5 x 6 x 10 mm irregular nodule in the left upper lobe (series 5 image 151) has increased in size from 2 to 3 mm compared to 01/30/2022. Severe underlying lung emphysema bilaterally. Airways: Central and segmental airways are patent. Pleura: No effusion. Lymph nodes: No lymphadenopathy. Heart and vasculature: Normal size of the heart. Unchanged pericardial fluid about the apex of the heart. Mild to moderate coronary artery atherosclerotic calcification. Mediastinum: Minimal hiatal hernia. Small amount of retained fluid within the mid esophagus. Limited upper abdomen: No acute pathology. Skeleton: No acute pathology. Procedure Note Cele Gan MD - 06/07/2023 EXAMINATION: CT CHEST W CONTRAST CLINICAL HISTORY: Abnormal xray - lung nodule, < 1 cm, mod-high risk;Pneumonia, unresolved TECHNIQUE: Chest CT with 58 ml of Omnipaque 350 COMPARISON: 02/02/2023 FINDINGS: Pulmonary parenchyma: 5 x 6 x 10 mm irregular nodule in the left upperlobe (series 5 image 151) has increased in size from 2 to 3 mm compared to01/30/2022. Severe underlying lung emphysema bilaterally. Airways: Central and segmental airways are patent. Pleura: No effusion. Lymph nodes: No lymphadenopathy. Heart and vasculature: Normal size of the heart. Unchanged pericardialfluid about the apex of the heart. Mild to moderate coronary arteryatherosclerotic calcification. Mediastinum: Minimal hiatal hernia. Small amount of retained fluid withinthe mid esophagus. Limited upper abdomen: No acute pathology. Skeleton: No acute pathology. IMPRESSION Small irregular left upper lobe pulmonary nodule is not definitively changed compared to 02/02/2023, however, has increased in size compared [id number] is concerning for a primary pulmonary malignancy. Thank you for letting us participate in the care of this patient. If youare a health care provider and have any questions regarding this report,please contact the number below. For patients who have questions please contactthe health pharmacy care coordinator that requested your imaging first. Roddy Olson MD IM CT ORDERABLES documented in this encounter Visit Diagnoses Diagnosis Malignant neoplasm of upper-outer quadrant of left breast in female, estrogen receptor positive Pulmonary nodule, left Solitary pulmonary nodule documented in this encounter Administered Medications Inactive Administered Medications - up to 3 most recent administrations Medication Order MAR Action Action Date Dose Rate Site iohexoL (Omnipaque) (350 mg/mL) solution 0-200 mL 0-200 mL, Intravenous, ONCE PRN, 1 dose, Starting on Jayshree 06/07/23 at 1118, Until Jayshree 06/07/23 at 1118, Per Protocol, Warning Vesicant/Irritant Medication , Radiology Contrast, Routine Given 06/07/2023 11:18 AM EST 58 mLs documented in this encounter Care Teams Strip Tank Tender Relationship Specialty Start Date End Date Lisa Zacarias, BAUTISTA PCP - General Family Medicine 01/08/19 documented as of this encounter
--- OUTSIDE RECORDS SUMMARY | 2024-02-04 18:37 | XMS_ITS | Encounter Summary ---
Author Organization [facility] Address [facility] [place] [address] Care Team Providers Care Employee Communications Intern Name Role Phone Lisa Zacarias APRN Primary Care Provider [phone] Encounter Details Date Type Department Care Team (Latest Contact Info) Description 06/07/2023 Travel Social History Tobacco Use Types Packs/Day [...] AM EDT Office [place] [address] Roddy Olson MD [facility] DR THORACIC [place] [address] documented as of this encounter Visit Diagnoses Not on filedocumented in this encounter Care Teams Employee Communications Intern Relationship Specialty Start Date End Date Lisa Zacarias APRN PCP - General Family Medicine 01/08/19 documented as of this encounter
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
--- OUTSIDE RECORDS SUMMARY | 2024-02-04 18:38 | XMS_ITS | Encounter Summary ---
Author Organization [facility] Address [facility] [place] [address] Care Team Providers Care Gear Lapper Name Role Phone Lisa Zacarias APRN Primary Care Provider [phone] Encounter Details Date Type Department Care Team (Latest Contact Info) Description 11/28/2019 11:16 AM EDT - 11/28/2019 11:59 PM EDT Hospital Encounter [place] [id number] Federico Horne MD [facility] [place] [address] Atypical chest pain; HUYNH (dyspnea on exertion); Coronary artery calcification Discharge Disposition: Home Social History Tobacco Use [...] Sig Dispensed Refills Start Date End Date rosuvastatin (Crestor) 40 mg Tablet Take 40 mg by mouth daily. 09/20/2019 albuterol 90 mcg/actuation HFA Aerosol Inhaler Inhale 2 puffs into the lungs every 4 hours as needed for Wheezing. Use with spacer citalopram (CELEXA) 20 mg TabletIndications:Armando lopez neoplasm of left female breast, unspecified site of breast Take 1 tablet by mouth daily. 60 tablet 6 12/07/2016 ibuprofen (ADVIL;MOTRIN) 600 mg Tablet Take 1 tablet by mouth every 6 hours as needed for Pain. 40 tablet 11/17/2015 levothyroxine (SYNTHROID) 25 mcg Tablet Take by mouth daily. 0 01/15/2015 loratadine (CLARITIN) 10 mg Tablet Take 10 mg by mouth daily. Reported on 06/12/2016 fluticasone propion-salmeterol (ADVAIR) 250-50 mcg/dose Disk with Device Inhale 1 puff into the lungs every 12 hours. 03/31/2021 anastrozole (ARIMIDEX) 1 mg TabletIndications:Armando lopez neoplasm of upper-outer quadrant of left breast in female, estrogen receptor positive Take 1 tablet by mouth daily. 90 tablet 3 03/28/2019 04/05/2020 acetaminophen (TYLENOL) 650 mg Tablet Sustained Release Take 1 tablet by mouth every 8 hours as needed for Pain. Do not exceed 6 tabs in 24 hours 11/17/2015 03/31/2021 documented as of this encounter Plan of Treatment Upcoming Encounters Date Type Department Care Team (Late st Contact Info) Description 12/04/2024 11:00 AM EDT Office [place] [address] Roddy Olson MD [facility] [place] [address] documented as of this encounter Procedures Procedure Name Priority Date/Time Associated Diagnosis Comments NUCLEAR EXERCISE STRESS CARDIOLOGY Routine 11/28/2019 11:37 AM EDT Atypical chest pain HUYNH (dyspnea on exertion) Coronary artery calcification documented in this encounter Results * Nuclear Exercise Stress Cardiology (11/28/2019 11:37 AM EDT) Anatomical Region Laterality Modality Other Federico Horne MD CARDIAC SERVICES ORD ERABLES documented in this encounter Visit Diagnoses Diagnosis Atypical chest pain Other chest pain HUYNH (dyspnea on exertion) Other dyspnea and respiratory abnormality Coronary artery calcification documented in this encounter Care Teams Gear Lapper Relationship Specialty Start Date End Date Lisa Zacarias APRN PCP - General Family Medicine 01/08/19 documented as of this encounter
--- OUTSIDE RECORDS SUMMARY | 2024-02-04 18:38 | XMS_ITS | Encounter Summary ---
Author Organization [facility] [place] [address] Care Team Providers Care Drop Wire Aliner Name Role Phone Lisa Zacarias BAUTISTA Primary Care Provider [phone] Reason for Referral * Diagnostic Test (Routine) - Closed Specialty Diagnoses / Procedures Referred By Saad escobar Referred To Contact Radiology Diagnoses Malignant neoplasm of upper-outer quadrant of left breast in female, estrogen receptor positive Pulmonary nodule, left Procedures CT Chest w Contrast Roddy Olson MD [facility] [place] [address] [facility] [place] [address] Referral ID Status Reason Start Date Expiration Date V isits Requested Visits Authorized [id number] Closed Specialty Service Requested 02/22/2023 08/25/2024 1 1 Reason for Visit * Reason Comments Nodule Encounter Details Date Type Department Care Team (Late st Contact Info) Description 02/22/2023 10:00 AM EDT Office [place] [address] Roddy Olson MD [facility] [address] [place] [address] Malignant neoplasm of upper-outer quadrant [...] Sign Reading Time Taken Comments Blood Pressure 136/83 02/22/2023 9:45 AM EDT Pulse 76 02/22/2023 9:45 AM EDT Temperature 36.4 ??C (97.5 ??F) 02/22/2023 9:45 AM ED T Respiratory Rate 17 02/22/2023 9:45 AM EDT Oxygen Saturation 95% 02/22/2023 9:45 AM EDT Inhaled Oxygen Concentration - - Weight 97.4 kg (214 lb 11.7 oz) 02/22/2023 9:45 AM EDT Height 169.1 cm (5' 6.58) 02/22/2023 9:45 AM ED T Body Mass Index 34.06 02/22/2023 9:45 AM EDT documented in this encounter Patient Instructions * Patient Instructions* Blanche Sandoval RN - 02/22/2023 10:00 AM EDT Thank you for visiting Dr. Olson in clinic 02/22/23 Dr. Olson would like to see you back in clinic in 4 months with a recent CT scan of your chest with IV contrast. You will receive a letter [...] Progress Notes * Roddy Olson MD - 02/22/2023 10:00 AM EDT Today I saw Kelley Jensen in clinic with our PA, Clark Sy. Please see my addendum to his note. Roddy Olson MD 02/22/2023 documented in this encounter H&P Notes * Clark Sy PA - 02/22/2023 10:00 AM EDT Images from the original note were not included. Thoracic Surgery Attending Outpatient Consultation Note MD Clark Mix PA [place] [address] FAX: Referring Provider: [place] [address] Reason for Consultation: Left upper lobe nodule Today, 02/22/2023, we saw Ms. Jensen in the Thoracic Surgery Clinic at [facility] in consultation for a left lung nodule at your request. Her history was obtained from the patient. We have also reviewed hermedical records and imaging prior to today's visit. As you know, Ms. Jensen is a 67 y.o. female former smoker (45 pack yrs, quit 2018) with PMHx significant for HTN, HLD, hypothyroidism, emphysema, breast cancer (s/p chemo/rads and partial mastectomy, Stage IIA adenocarcinoma in 2005), remote spontaneous right sided PTX (s/p chest tube placement) and known left upper lung nodule found during routine lung cancer screening. She was referred by her PCP given her pulmonary nodule. She presents today to discuss surgical treatment options regarding her left upper lobe nodule. She denies any recent changes in her health other than continued exertional SOB and a non-productive cough (worse in the AM and PM). She denies CP, fevers, chills, nausea, or vomiting. We have personally reviewed the following scans and results that are part of the work up, including: CT Chest (8/16/23): She denies fevers, night sweats, or chest pain on exertion. She denies any recent weight loss. She is able to walk 50 feet before needing to stop. She states she may be able to climb 1 flight of stairs before becoming SOB. Her ECOG performance status is 2 - Symptomatic, <50% confined to bed A 14-point review of systems is otherwise negative, except where noted above. She has a past medical history of Breast cancer, left breast (2014), Former smoker (12/08/2015), Long-Term current use of aromatase inhibitor (03/11/2020), Obesity (BMI 30-39.9), and Osteopenia (03/11/2020). She has a past surgical history that includes Excise Breast Les W Xray Marker (62900) (Left, 02/16/2015); Bx/Remv, Lymph Node, Deep Axill (93408) (Left, 02/16/2015); Inj Radioactive Tracer For Id Of [place] Node (86181) (Left, 02/16/2015); Laparoscopy W Tot Hysterect Uterus 250 Gram Or Less (98012) (N/A, 11/16/2015); Lap, Pelvic Lymphadenectomy/Bx (29417) (N/A, 11/16/2015); Appendectomy; Breast biopsy (Left, 12/2014); Colonoscopy, Remv Sarah, Snare (16285) (N/A, 08/10/2016); Breast lumpectomy (Left, 01/2015); and Colonoscopy, Remv Kingn, Snare (75165) (N/A, 11/10/2021). She has a current medication list which includes the following prescription(s): metformin, cholecalciferol, cyanocobalamin (vitamin b-12), primidone, stiolto respimat, anastrozole, rosuvastatin, citalopram, levothyroxine, azithromycin, calcium citrate/vitamin d2, biotin, bupropion xl, nicotine, albuterol, ibuprofen, and loratadine. She has No Known Allergies. Her family history is not on file. A review of her social history shows: Social History Tobacco Use Smoking status: Former Packs/day: 1.00 Years: 30.00 Pack years: 30.00 Types: Cigarettes Quit date: 04/05/2019 Years since quittin.8 Smokeless tobacco: Never Substance Use Topics Alcohol use: No Alcohol/week: 0.0 standard drinks On examination, Ms. Jensen is a well nourished, well-developed female. She is alert and oriented. Vital Signs: Blood Pressure 136/83 (Patient Position: Sitting) Pulse 76 Temperature 36.4 ??C (97.5 ??F) (Temporal) Respiration 17 Height 169.1 cm (5' 6.58) Weight 97.4 kg (214 lb 11.7 oz) Oxygen Saturation 95% Body Mass Index 34.06 kg/m?? Body mass index is 34.06 kg/m??. Her pulse is regular, breathing is unlabored and temperature is afebrile. In general she is in no acute distress. Her pupils are reactive. Her sclera are anicteric. She has no palpable cervical or supraclavicular adenopathy. The lung addison are clear to auscultation bilaterally. Heart rate and rhythm are normal, and there is no murmur. The abdomen is soft and nontender. No organs or masses are palpable. There is no peripheral edema, cyanosis, or clubbing of the extremities. Pulses are full and equal bilaterally. Neurologic examination is grossly intact. Musculoskelatal exam is grossly intact with 5/5 strength. Her skin is non-jaundiced. In summary, Ms. Jensen is a 67 y.o. female former smoker with a left upper lung nodule. We have discussed the differential diagnosis including primary lung cancer, metastatic cancer to the lung, resolving infection or benign lung nodule. We reviewed with her the findings of her CT scans from the last 2 years. We have discussed options including observation/surveillance, percutaneous or bronchoscopic biopsy, or surgical resection. Given the relatively small size of the nodule and the location biopsy at this time would have a high degree of potential false negative result. Given the overall stability of the nodule over the last year we discussed proceeding with surveillance to monitor the size and appearance of the nodule. In addition, we will prescribe a short course of antibiotics given her recent cough to help prophylacticlly treat any underlying or resolving pneumonia in the setting of known COPD. We will obtain a CT Chest with contrast in 4 months and a new updated pulmonary function tests. Patient to RTC in 4 months to review the size and characteristic of her left upper lobe jason g nodule. She asked appropriate questions and agrees with this current treatment plan. We have asked Ms. Jensen to begin a regular exercise regiment that involves dedicated walking 30-60minutes per day, 6 days per week, or some equivalent form of exercise/activity. Additional work up will include CT Chest with contrast and PFTs in 4 months If she should have any further questions or concerns, she should feel free to contact us. She was seen and evaluated with Dr. Olson. EMMETT Jin 02/22/2023 I have seen the patient and reviewed the PA's above note and I agree with the details as written. Job personally reviewed the relevant imaging. The assessment and plan were formulated in discussion with me and I agree with them as documented. I had the above documented discussion with the patient and the associated counseling and medical decision making. I have edited the note as appropriate. I spent >60 minutes in the total care of this patient including review of records and imaging, [id number] consultation and counseling, interpretation of studies and documentation. Roddy Olson MD 02/22/2023 documented in this encounter Plan of Treatment Upcoming Encounters Date Type Department Care Team (Late st Contact Info) Description 12/04/2024 11:00 AM EDT Office [place] [address] Roddy Olson MD [facility] [address] [place] [address] documented as of this encounter Results * Pulmonary Function Testing [...] PFT FEV1/FVC Pre-BD Z-Score -2.82 COMPAS PFT LCN50-77 Actual Pre-BD 0.54 % COMPAS PFT MMY74-34 Predicted 2.03 % COMPAS PFT OBD80-13 Pre-BD % of Predicted 27 % COMPAS PFT BCX61-05 Pre-BD Z-Score -2.57 COMPAS PFT DLCO Hb [...] Roddy Olson MD PFT ORDERABLES COMPAS PFT * CT Chest w Contrast (06/07/2023 11:18 AM EST) Anatomical Region Laterality Modality Chest Computed Tomogra phy Impressions 06/07/2023 7:04 PM EST Small irregular left upper lobe pulmonary nodule is not definitively changed compared to 02/02/2023, however, has increased in size compared to 2021 is concerning for a primary pulmonary malignancy. Thank you for letting us participate in the care of this patient. ??If you are a health care provider and have any questions regarding this report, please contact the number below. ??For patients who have questions please contact the health behavioral health care manager that requested your imaging first. ? Electronically signed by: Cele Bronson MD, [facility] ([phone]), at 06/07/2023 7:04 PM Narrative 06/07/2023 7:04 PM EST EXAMINATION: CT [...] 02/02/2023, however, has increased in size compared [id number] is concerning for a primary pulmonary malignancy. Thank you for letting us participate in the care of this patient. If youare a health care provider and have any questions regarding this report,please contact the number below. For patients who have questions please contactthe health behavioral health care manager that requested your imaging first. Roddy Olson MD IMG CT ORDERABLES * Creatinine (06/07/2023 9:53 AM EST) Creatinine 0.81 0.70 - 1.20 mg/dL [facility] Est Glomerular Filtration Rate 80 >=60 mL/min/1. 73 m?? [facility] Comment: This patient's estimated GFR was [...] MD CHEMISTRY ORDERABLE S Performing Organization Address City/State/[facility] Co de Phone Number [facility] [place] [address] documented in this encounter Visit Diagnoses Diagnosis [...] nodule documented in this encounter Care Teams Drop Wire Aliner Relationship Specialty Start Date End Date Lisa Zacarias, HOT MOLDER PCP - General Family Medicine 01/08/19 documented as of this encounter
--- OUTSIDE RECORDS SUMMARY | 2024-02-04 18:38 | XMS_ITS | Encounter Summary ---
Author Organization [facility] Address [facility] [place] [address] Care Team Providers Care Hip Hop Dancer Name Role Phone Lisa Zacarias APRN Primary Care Provider [phone] Encounter Details Date Type Department Care Team (Late st Contact Info) Description 04/12/2022 Orders [place] [address] France Lopez MD [facility] [place] [address] Osteoporosis, unspecified osteoporosis type, unspecified pathological fracture presence Social History Tobacco Use Types Packs/Day Years Used Date Smoking Tobacco: Former Cigarettes 1 30 1 - 04/05/2019 Smokeless Tobacco: Never Comments:03/11/20 smoking ab out half pack a day, on chantix Alcohol Use Standard Drinks/Week Comments No 0 [...] AM EDT Office [place] [address] Roddy Olson MD [facility] [place] [address] documented as of this encounter Visit Diagnoses Diagnosis Osteoporosis, unspecified osteoporosis type, unspecified pathological fracture presence documented in this encounter Care Teams Hip Hop Dancer Relationship Specialty Start Date End Date Lisa Zacarias APRN PCP - General Family Medicine 01/08/19 documented as of this encounter
--- OUTSIDE RECORDS SUMMARY | 2024-02-04 18:38 | XMS_ITS | Encounter Summary ---
[place] [address] Care Team Providers Care Psych Social Worker Name Role Phone Lisa Zacarias BAUTISTA Primary Care Provider [phone] Reason for Referral * Diagnostic Test (Routine) - Closed Specialty Diagnoses / Procedures Referred By Contac t Referred To Contact Radiology Diagnoses Atypical chest pain HUYNH (dyspnea on exertion) Coronary artery calcification Procedures NM Exercise Stress and Rest Myocardial Perfusion Federico Horne MD [facility] [place] [address] [place] [address] Referral ID Status Reason Start Date Expiration Date V isits Requested Visits Authorized [id number] Closed Specialty Service Requested 11/20/2019 05/18/2020 3 3 Reason for Visit * Diagnostic Test (Routine) - Closed Specialty Diagnoses / Procedures Referred By Contac t Referred To Contact Radiology Diagnoses Atypical chest pain HUYNH (dyspnea on exertion) Coronary artery calcification Procedures NM Exercise Stress and Rest Myocardial Perfusion Federico Horne MD [facility] [place] [address] [facility] [place] [address] Referral ID Status Reason Start Date Expiration Date V isits Requested Visits Authorized [id number] Closed Specialty Service Requested 11/20/2019 05/18/2020 3 3 Encounter Details Date Type Department Care Team (Latest Contact Info) Description 11/28/2019 10:03 AM EDT Hospital Encounter [place] [address] Federico Horne MD [facility] [place] [address] Atypical chest pain; HUYNH (dyspnea on exertion); [...] Use with spacer citalopram (CELEXA) 20 mg TabletIndications:Malig nant neoplasm of left female breast, unspecified site [...] AM EDT Office [place] [address] Roddy Olson MD [facility] [place] [address] documented as of this encounter Procedures Procedure Name Priority Date/Time Associated Diagnosis Comments NM EXERCISE STRESS AND REST MYOCARDIAL PERFUSION Routine 11/28/2019 11:36 AM EDT Atypical chest pain HUYNH (dyspnea on exertion) Coronary artery calcification documented in this encounter Results * NM Exercise Stress and Rest Myocardial Perfusion (11/28/2019 11:36 AM EDT) Anatomical Region Laterality Modality Nuclear Medicine Impressions 11/28/2019 2:54 PM EDT No ischemia or scar. ??Left ventricular function is normal. I have personally reviewed the image(s) and the resident's interpretation and agree with the findings, Giuseppe Sanders at 11/28/2019 2:54 PM Thank you for letting us participate in the care of this patient. For questions regarding this report, please contact the number below. ? Narrative 11/28/2019 2:54 PM EDT EXAMINATION: NM EXERCISE STRESS AND REST MYOCARDIAL PERFUSION, NM EXERCISE STRESS CT COMPONENT CLINICAL HISTORY: Chest pain/anginal equiv, 10yr CHD risk 10-20%, not EST candidate atypical chest pain, HUYNH TECHNIQUE: During rest, 8.8 mCi of technetium-99 sestamibi were administered intravenously. Approximately 15 minutes later, SPECT images of the heart were obtained with reconstruction in the short, vertical long and horizontal long axes. The patient was then exercised to 4.6 METS to a peak heart rate of 150 bpm which is 96 % of the maximum predicted heart rate. ??26.7 mCi of technetium-99m sestamibi was then administered intravenously and the patient was exercised for one and one half additional minutes. Images of the heart were then again obtained with SPECT reconstruction. A low dose CT scan was acquired for the purpose of attenuation correction. COMPARISON: None FINDINGS: No fixed or reversible perfusion defects are present. Functional analysis: Myocardial function: There is normal wall motion and wall thickening. Left ventricular ejection fraction: 68 % (normal greater than 50%) INCIDENTAL CT FINDINGS: Aortic calcifications. Procedure Note Giuseppe Sanders MD - 11/28/2019 EXAMINATION: NM EXERCISE STRESS AND REST MYOCARDIAL PERFUSION, NMEXERCISE STRESS CT COMPONENT CLINICAL HISTORY: Chest pain/anginal equiv, 10yr CHD risk 10-20%, notEST candidate atypical chest pain, HUYNH TECHNIQUE: During rest, 8.8 mCi of technetium-99 sestamibi wereadministered intravenously. Approximately 15 minutes later, SPECT images of the heartwere obtained with reconstruction in the short, vertical long and horizontallong axes. The patient was then exercised to 4.6 METS to a peak heart rate of 150 bpmwhich is 96 % of the maximum predicted heart rate. 26.7 mCi of technetium-99m sestamibi was then administered intravenously and the patient wasexercised for one and one half additional minutes. Images of the heart were then again obtained with SPECT reconstruction. A low dose CT scan was acquired for the purpose of attenuationcorrection. COMPARISON: None FINDINGS: No fixed or reversible perfusion defects are present. Functional analysis: Myocardial function: There is normal wall motion and wall thickening. Left ventricular ejection fraction: 68 % (normal greater than 50%) INCIDENTAL CT FINDINGS: Aortic calcifications. IMPRESSION No ischemia or scar. Left ventricular function is normal. I have personally reviewed the image(s) and the resident's interpretationand agree with the findings, Giuseppe Sanders at 11/28/2019 2:54 PM Thank you for letting us participate in the care of this patient. Forquestions regarding this report, please contact the number below. Federico Horne MD IMG [place] ORDERABLES documented in this encounter Visit Diagnoses Diagnosis Atypical chest pain Other chest pain HUYNH (dyspnea on exertion) Other dyspnea and respiratory abnormality Coronary artery calcification documented in this encounter Care Teams Psych Social Worker Relationship Specialty Start Date End Date Lisa Zacarias APRN PCP - General Family Medicine 01/08/19 documented as of this encounter
--- OUTSIDE RECORDS SUMMARY | 2024-02-04 18:38 | XMS_ITS | Encounter Summary ---
Author Organization [facility] [place] [address] Care Team Providers Care Door Frame Builder Name Role Phone Lisa Zacarias COMPUTER EDUCATION PROFESSOR Primary Care Provider [phone] Encounter Details Date Type Department Care Team (Late st Contact Info) Description 02/13/2021 Ancillary Procedure [place] [address] Lisa Zacarias, COMPUTER EDUCATION PROFESSOR [address] [place] [address] Social History Tobacco Use Types Packs/Day Years [...] AM EDT Office [place] [address] Roddy Olson MD [facility] [place] [address] documented as of this encounter Procedures Procedure Name Priority Date/Time Associated Diagnosis Comments FILM LIBRARY STORAGE ONLY CT CHEST Routine 02/13/2021 12:00 AM EDT documented in this encounter Results * Film Library- Storage Only CT Chest (02/13/2021 12:00 AM EDT) Narrative [facility] - 02/21/2023 9:20 PM EDT This exam is auto-finalizing. It's purpose is for storage only. Lisa Zacarias APRN IMShruthi FILM LIBRARY ORD ERABLES [place], [place] documented in this encounter Visit Diagnoses Not on filedocumented in this encounter Care Teams Door Frame Builder Relationship Specialty Start Date End Date Lisa Zacarias APRN PCP - General Family Medicine 01/08/19 documented as of this encounter
--- OUTSIDE RECORDS SUMMARY | 2024-02-04 18:38 | XMS_ITS | Encounter Summary ---
Author Organization [facility] Address [facility] [place] [address] Care Team Providers Care Integrated Circuits Inspector Name Role Phone Lisa Zacarias SENIOR INSIGHT MANAGER Primary Care Provider [phone] Reason for Visit * Reason Comments Skin Check * Consultation (Routine) - Specialty Diagnoses / Procedures Referred By Saad escobar Referred To Contact Dermatology Diagnoses Other benign neoplasm of skin, unspecified SKIN CHECK, MULTIPLE NEVI Lisa Zacarias, [place] [address] [place] [address] [facility] Dermatology [address] [place] [address] Referral ID Status Reason Start Date Expiration Date V isits Requested Visits Authorized [id number] Consult, Test & Treat Connection [facility] PCP Updated and/or Approved 02/03/2020 08/05/2020 6 6 Encounter Details Date Type Department Care Team (Late st Contact Info) Description 02/24/2020 3:30 PM EDT Office Visit Dermatology at [facility] [address] [place] [address] Urmila Holly MD [facility] [address] Seborrheic keratosis, inflamed; Seborrheic keratosis; EIC (epidermal inclusion cyst); Multiple benign nevi Social History Tobacco Use Types Packs/Day Years [...] on file documented as of this encounter Progress Notes * Urmila Holly MD - 02/24/2020 3:30 PM EDT Images from the original note were not included. DERMATOLOGY - NEW PATIENT NOTE Date of service: 02/24/2020 Kelley Jensen : 1955, 64 y.o. Chief Complaint: Chief Complaint Patient presents with ??? Skin Check HPI: Kelley Jensen is a 64 y.o. female referred by Lisa Zacarias APRN with the following concerns: here for full skin exam. Patient notes many moles that are difficult for her to monitor. Asymptomatic. Also notes slightly irritated lesions on the right medial thigh and left upper arm. Not growing. Nonpainful. Patient denies any other pruritic, painful, bleeding, nonhealing, or growing/changing lesions of concern today. Relevant Skin History: - Okay to leave detailed message with results? 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 rosuvastatin (Crestor) 40 mg Tablet Take 40 mg by mouth daily. ??? fluticasone propion-salmeterol (ADVAIR) 250-50 mcg/dose Disk with Device Inhale 1 puff into thelungs every 12 hours. ??? albuterol 90 mcg/actuation HFA Aerosol Inhaler Inhale 2 puffs into the lungs every 4 hours as needed for Wheezing. Use with spacer ??? anastrozole (ARIMIDEX) 1 mg Tablet Take 1 tablet by mouth daily. 90 tablet 3 ??? citalopram (CELEXA) 20 mg Tablet Take 1 tablet by mouth daily. 60 tablet 6 ??? acetaminophen (TYLENOL) 650 mg Tablet Sustained Release Take 1 tablet by mouth every 8 hours asneeded for Pain. Do not exceed 6 tabs in 24 hours ??? ibuprofen (ADVIL;MOTRIN) 600 mg Tablet Take 1 tablet by mouth every 6 hours as needed for Pain.40 tablet 0 ??? loratadine (CLARITIN) 10 mg Tablet Take 10 mg by mouth daily. Reported on 06/12/2016 ??? levothyroxine (SYNTHROID) 25 mcg Tablet Take by mouth daily. 0 No current facility-administered medications for this visit. Allergies: No Known Allergies Review of Systems: - General: Feels well, no fever, chills, night sweats, unintentional weight loss. - Skin: No other skin concerns. Examination: - Constitutional: Patient was alert, well-appearing and in no noticeable distress. - Full Skin Exam: Skin examination of the scalp, face, ears, neck, back, chest, axillae, abdomen, right and left upper extremities, right and left lower extremities, hands, feet, and buttocks was normal with the exception of the findings listed below. Genitalia not examined. - A nurse/MA was present and on standby during my examination. Diagnosis/Skin findings/Assessment/Plan: #. Epidermal inclusion cyst EXAM: on the glabella and sternal notch there are cystic, mobile, subcutaneous nodules. - Benign nature discussed - Treatment options including expectant management, intralesional kenalog and excision discussed. - Patient elects expectant management at this time. #. Irritated seborrheic keratoses #. Seborrheic keratoses EXAM: scattered on the trunk and extremities, there are multiple, well- circumscribed, stuck-on, waxy papules and plaques with a cerebriform surface and milia-like cysts apparent on dermatoscopic examination. A few of these on the left arm and right medial knee are associated with mild erythema and have a small amount of overlying serosanguinous crust. - Benign nature discussed. - Given objective signs of irritation, will proceed with treatment today. - After informed consent, LN2 x2 30 second cycles to 2 lesions. Patient tolerated the procedure well. #. Multiple Benign Nevi EXAM: scattered on the trunk and extremities, there are light to medium brown macules and papules with regular pigment network on dermoscopy. - Benign nature discussed. No further intervention indicated. - ABCDEs of melanoma reviewed. Recommend photoprotection with minimum SPF 30 reapplied every 2 hours. - Continue to clinically monitor RTC: 1 year for FBSE Note initiated by CRISTA KHAN LPN. I, CRISTA KHAN LPN, have performed the documentation for this encounter in the presence of and acting as a scribe for Urmila Holly MD. I performed the services which were documented by the scribe, and I agree with the accuracy of the documentation in this encounter. Urmila Holly MD Reviewed and signed by Urmila Holly MD Resident in Dermatology [facility] Patient seen in conjunction with staff territory sales representative: Salma Quijano MD Department of Dermatology [facility] * Salma Quijano MD - 02/24/2020 3:30 PM EDT I directly supervised Dr. Holly during this office visit. Dr. Holly presented the historyand physical exam to me. I then saw and examined this patient with Dr. Holly . We reviewed thehistory and pertinent details and I confirmed the physical findings. I agree with the details of the history and physical exam as documented in Dr. Holly's note. Salma Quijano MD Staff Physician documented in this encounter Plan of Treatment Upcoming Encounters Date Type Department Care Team (Late st Contact Info) Description 12/04/2024 11:00 AM EDT Office Visit [place] [address] Roddy Olson MD [facility] [place] [address] documented as of this encounter Visit Diagnoses Diagnosis Seborrheic keratosis, inflamed Inflamed seborrheic keratosis Seborrheic keratosis Other seborrheic keratosis EIC (epidermal inclusion cyst) Sebaceous cyst Multiple benign nevi Benign neoplasm of skin, site unspecified documented in this encounter Care Teams Integrated Circuits Inspector Relationship Specialty Start Date End Date Lisa Zacarias APRN PCP - General Family Medicine 01/08/19 documented as of this encounter
--- OUTSIDE RECORDS SUMMARY | 2024-02-04 18:38 | XMS_ITS | Encounter Summary ---
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 Procedures TC DENOSUMAB, 1MG, INJECTION PROLIA Giuseppe Shaw MD [facility] DR HEMATOLOGY [place] [address] Stj Hem Onc Infusion [address] [place] [id number] Referral ID Status Reason Start Date Expiration Date Visits Re quested Visits Authorized [id number] Closed 03/31/2021 03/31/2023 99 99 Encounter Details Date Type Department Care Team (Late st Contact Info) Description 09/16/2020 3:00 PM EDT Infusion Hematology Oncology at [address] [address] Malignant neoplasm of upper-outer quadrant of left breast in female, estrogen receptor positive; Osteopenia, 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; 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 Patient aware to call clinic with any questions or concerns. Plan: Return to clinic as scheduled with labs prior to that visit. documented in this encounter Plan of Treatment Upcoming Encounters Date Type Department Care Team (Late st Contact Info) Description 12/04/2024 11:00 AM EDT Office [place] [address] Roddy Olson MD [facility] [place] [address] documented as of this encounter Visit Diagnoses Diagnosis Malignant neoplasm of upper-outer quadrant of left breast in female, estrogen receptor positive Osteopenia, 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 [facility] current use of aromatase inhibitor Use of aromatase inhibitors documented in this encounter Administered Medications Inactive Administered Medications - up to 3 most recent administrations Medication Order MAR Action Action Date Dose Rate Site denosumab (Prolia) (60 mg/mL) subcutaneous injection 60 mg 60 mg, Subcutaneous, ONCE, 1 dose, On Jayshree 09/16/20 at 1545, Bring to room temperature 15-30 mins before administration. Monitor patients with severe impairment (CRCL less than 30 mL/minute or on dialysis) due to increased risk of hypocalcemia., Restricted to outpatient use. Requires P&T approval for inpatient use. Use in outpatient setting Given 09/16/2020 3:27 PM EDT 60 mg Left Arm documented in this encounter Care Teams Cdl Company Driver Relationship Specialty Start Date End Date Lisa Zacarias, BAUT[place]A PCP - General Family Medicine 01/08/19 documented as of this encounter
--- OUTSIDE RECORDS SUMMARY | 2024-02-04 18:38 | XMS_ITS | Encounter Summary ---
Author Organization [facility] [place] [address] Care Team Providers Care Molecular Geneticist Name Role Phone Lisa Zacarias APRN Primary Care Provider [phone] Encounter Details Date Type Department Care Team (Late st Contact Info) Description 04/12/2022 Orders [place] [address] France Lopez MD [facility] [place] [address] Social History Tobacco Use Types Packs/Day Years [...] AM EDT Office [place] [address] Roddy Olson MD [facility] [place] [address] documented as of this encounter Visit Diagnoses Not on filedocumented in this encounter Care Teams Molecular Geneticist Relationship Specialty Start Date End Date Lisa Zacarias APRN PCP - General Family Medicine 01/08/19 documented as of this encounter
--- OUTSIDE RECORDS SUMMARY | 2024-02-04 18:38 | XMS_ITS | Encounter Summary ---
Author Organization [facility] [place] [address] Care Team Providers Care Certified Phlebotomy Technician Name Role Phone Lisa Zacarias BA[place]A Primary Care Provider [phone] Encounter Details Date Type Department Care Team (Late st Contact Info) Description 02/14/2022 Telephone [place] [address] Phoenix Solorzano RN Social History Tobacco Use Types Packs/Day [...] on file documented as of this encounter Miscellaneous Notes * Telephone Encounter - Phoenix Solorzano RN - 02/17/2022 9:49 AM EDT Images from the original note were not included. February 17, 2022 France Lopez MD to Me 9:26 AM Actually no need to increase, I did not see her 24h urine. * Telephone Encounter - Phoenix Solorzano RN - 02/16/2022 2:38 PM EDT Images from the original note were not included. February 16, 2022 France Lopez MD to [place] 2:37 PM Reclast ordered, please ask her to increase her Ca intake as PTH was elevated unless she did it after last visit allready. Needs to see me 01/2023 * Telephone Encounter - Phoenix Solorzano RN - 02/14/2022 12:30 PM EDT Patient left voicemail that she would like to set up an infusion that she believes she was due to have a few months ago. She would like to have this done in [facility]. documented in this encounter Plan of Treatment Upcoming Encounters Date Type Department Care Team (Late st Contact Info) Description 12/04/2024 11:00 AM EDT Office [place] [address] Roddy Olson MD [facility] [place] [address] documented as of this encounter Visit Diagnoses Not on filedocumented in this encounter Care Teams Certified Phlebotomy Technician Relationship Specialty Start Date End Date Lisa Zacarias APRN PCP - General Family Medicine 01/08/19 documented as of this encounter
--- OUTSIDE RECORDS SUMMARY | 2024-02-04 18:38 | XMS_ITS | Encounter Summary ---
Author Organization [facility] [place] [address] Care Team Providers Care Coin Wrapping Machine Operator Name Role Phone Lisa Zacarias RETAIL SERVICE SPECIALIST Primary Care Provider [phone] Encounter Details Date Type Department Care Team (Late st Contact Info) Description 02/02/2023 Ancillary Procedure [place] [address] Lisa Zacarias, RETAIL SERVICE SPECIALIST [address] [place] [address] Social History Tobacco Use Types [...] AM EDT Office [place] [address] Roddy Olson MD [facility] [place] [address] documented as of this encounter Procedures Procedure Name Priority Date/Time Associated Diagnosis Comments FILM LIBRARY STORAGE ONLY CT CHEST Routine 02/02/2023 12:00 AM EDT documented in this encounter Results * Film Library- Storage Only CT Chest (02/02/2023 12:00 AM EDT) Narrative [facility] - 02/14/2023 11:50 AM EDT This exam is auto-finalizing. It's purpose is for storage only. Lisa Zacarias APRN [employer] FILM LIBRARY ORD ERABLES [place], [place] documented in this encounter Visit Diagnoses Not on filedocumented in this encounter Care Teams Coin Wrapping Machine Operator Relationship Specialty Start Date End Date Lisa Zacarias APRN PCP - General Family Medicine 01/08/19 documented as of this encounter
--- OUTSIDE RECORDS SUMMARY | 2024-02-04 18:38 | XMS_ITS | Encounter Summary ---
Author Organization [facility] [place] [address] Care Team Providers Care Molder Punch Name Role Phone Lisa Zacarias BAUTISTA Primary Care Provider [phone] Reason for Visit * Diagnostic Test (Routine) - Closed Specialty Diagnoses / Procedures Referred By Saad escobar Referred To Contact Radiology Diagnoses Atypical chest pain HUYNH (dyspnea on exertion) Coronary artery calcification Procedures NM Exercise Stress and Rest Myocardial Perfusion Federico Horne MD [facility] [address] [place] [address] Referral ID Status Reason Start Date Expiration Date V isits Requested Visits Authorized [id number] Closed Specialty Service Requested 11/20/2019 05/18/2020 3 3 Encounter Details Date Type Department Care Team (Latest Contact Info) Description 11/28/2019 10:05 AM EDT Hospital Encounter [place] [address] Federico Horne MD [facility] [address] Discharge Disposition: Home Social History Tobacco Use [...] AM EDT Office [place] [address] Roddy Olson MD [facility] [place] [address] documented as of this encounter Procedures Procedure Name Priority Date/Time Associated Diagnosis Comments NM EXERCISE STRESS AND REST MYOCARDIAL PERFUSION Routine 11/28/2019 11:36 AM EDT Atypical chest pain HUYNH (dyspnea on exertion) Coronary artery calcification documented in this encounter Visit Diagnoses Not on filedocumented in this encounter Administered Medications Inactive Administered Medications - up to 3 most recent administrations Medication Order MAR Action Action Date Dose Rate Site technetium (Tc-99m) sestamibi injection 26.7 mCi 26.7 mCi, Intravenous, ONCE PRN, 1 dose, Starting on Sun11/28/19 at 1130, Until Sun11/28/19 at 1130, Per Protocol, Routine Given 11/28/2019 11:30 AM EDT 26.7 mCi documented in this encounter Care Teams Molder Punch Relationship Specialty Start Date End Date Lisa Zacarias, BAUTISTA PCP - General Family Medicine 01/08/19 documented as of this encounter
--- OUTSIDE RECORDS SUMMARY | 2024-02-04 18:38 | XMS_ITS | Encounter Summary ---
Author Organization [facility] Address [facility] [place] [address] Care Team Providers Care Slab Lifting Engineer Name Role Phone Lisa Zacarias BAUTISTA Primary Care Provider [phone] Reason for Referral * High Dollar Medication (Routine) - Closed Specialty Diagnoses / Procedures Referred By Contac t Referred To Contact Med Infusion Diagnoses Osteoporosis, unspecified osteoporosis type, unspecified pathological fracture presence Procedures Zolendronic Acid (Reclast) Authorization Request France Lopez MD [facility] [place] [place] [address] [facility] Med Infusion [address] [place] [address] Referral ID Status Reason Start Date Expiration Date V isits Requested Visits Authorized [id number] Closed Consult, Test & Treat 02/16/2022 02/16/2023 1 1 Encounter Details Date Type Department Care Team (Late st Contact Info) Description 02/16/2022 Orders [place] [address] France Lopez MD [facility] [place] [address] Osteoporosis, unspecified osteoporosis type, unspecified pathological fracture [...] AM EDT Office [place] [address] Roddy Olson MD [facility] [place] [address] documented as of this encounter Visit Diagnoses Diagnosis Osteoporosis, unspecified osteoporosis type, unspecified pathological fracture presence documented in this encounter Care Teams Slab Lifting Engineer Relationship Specialty Start Date End Date Lisa Zacarias APRN PCP - General Family Medicine 01/08/19 documented as of this encounter
--- OUTSIDE RECORDS SUMMARY | 2024-02-04 18:38 | XMS_ITS | Encounter Summary ---
Author Organization Replaced By [facility] [place] [address] Care Team Providers Care Job Molder Name Role Phone Lisa Zacarias BAUTISTA Primary Care Provider [phone] Reason for Referral * Diagnostic Test (Routine) - Closed Specialty Diagnoses / Procedures Referred By Saad escobar Referred To Contact Cardiology Diagnoses Pericardial effusion (noninflammatory) Procedures Echocardiogram Transthoracic([facility]) Federico Horne MD [facility] [place] [address] [facility] [place] [address] Referral ID Status Reason Start Date Expiration Date V isits Requested Visits Authorized [id number] Closed Specialty Service Requested 09/22/2019 09/21/2020 1 1 Reason for Visit * Reason Comments Establish Care pericardial effusion Shortness of Breath * Consultation (Routine) - Specialty Diagnoses / Procedures Referred By Saad escobar Referred To Contact Cardiology Diagnoses Pericardial effusion (noninflammatory) Hyperlipidemia, unspecified FURTHER EVALUATION OF INCIDENTAL FINDINGS OF A SMALL PERCARDIAL EFFUSION ON LOW DOSE LUNG CT SCREENING FOR LUNG CA WELL MODERATE CORONARY ARTERY CALCIFICATIONS. SHE HAS A HX HLP-ON A STATIN. SHE HAS A HX OF L BREAST ADENCARCINOMA - [place] [facility]. THE PERICARDIAL EFFUSION IS NOT A NEW FINDING IT HAS BEEN SEEN ON XRAY IN THE PAST. Lisa Zacarias, MARBLEIZING MACHINE TENDER [address] [place] [address] Federico Horne MD [facility] [place] [address] Referral ID Status Reason Start Date Expiration Date V isits Requested Visits Authorized [id number] Consult, Test & [facility] PCP Updated and/or Approved 08/21/2019 02/19/2020 6 6 Encounter Details Date Type Department Care Team (Late st Contact Info) Description 09/22/2019 4:20 PM EDT Office Visit Cardiology at [address] [address] Federico Horne MD [facility] [place] [address] Encounter to establish care; Pericardial effusion (noninflammatory); HUYNH (dyspnea on exertion); History of breast cancer Social History Tobacco Use Types Packs/Day Years [...] Sign Reading Time Taken Comments Blood Pressure 126/71 09/22/2019 3:56 PM EDT Pulse 89 09/22/2019 3:56 PM EDT Temperature - - Respiratory Rate - - Oxygen Saturation 98% 09/22/2019 3:56 PM EDT Inhaled Oxygen Concentration - - Weight 92.5 kg (204 lb) 09/22/2019 3:56 PM EDT Height 168.9 cm (5' 6.5) 09/22/2019 3:56 PM EDT Body Mass Index 32.43 09/22/2019 3:56 PM EDT documented in this encounter Progress Notes * Federico Horne MD - 09/22/2019 4:20 PM EDT Images from the original note were not included. Formerly [facility] [address] [address] CARDIOVASCULAR MEDICINE OUTPATIENT CONSULTATION Kelley Jensen [id number] 09/22/2019 REFERRING PROVIDER: Lisa Zacarias CHIEF COMPLAINT: Chief Complaint Patient presents with ??? Establish Care pericardial effusion ??? Shortness of Breath PROBLEM LIST Patient Active Problem List Diagnosis ??? COPD (chronic obstructive pulmonary disease) ??? Former smoker 30 pack year history. ??? Abnormal endometrial ultrasound ??? Abnormal ultrasound of endometrium ??? Obesity BMI 32 ??? Malignant neoplasm of upper-outer quadrant of left female breast ??? Dietary counseling and surveillance HISTORY OF PRESENT ILLNESS: Mrs. Jensen is a 64 year old woman with history of COPD, breast cancer s/p lumpectomy and sentinel node biopsy (1/3 nodes positive) s/p chemotherapy and radiation to breast who presents for evaluation of pericardial effusion. She has had several CTs of her chest dating back to several years ago, all with small pericardial effusion. On discussion with patient, she reports stable HUYNH with 1 flight of stairs; no chest pain. No PND or orthopnea, mild stable ankle edema. She has stable fatigue. No claudication, palpitations, pre-syncope, syncope or symptoms of TIA/stroke. Describes heart burn symptoms after eating. No known history of CAD. No history of hypertension. Has hyperlipidemia, on high i ntensity statin. PAST MEDICAL HISTORY: Past Medical History: Diagnosis Date ??? Breast cancer, left breast 2014 ??? Former smoker 12/08/2015 30 pack year history. ??? Obesity (BMI 30-39.9) REVIEW OF SYSTEMS: GENERAL HEENT CV PULM All negative x All negative All negative All negative Weight loss Headache Chest Pain Non-productive cough Weight gain Vision change Palpitations Productive cough Fevers Sinus congestion Orthopnea Wheezing Chills Hoarseness x LE edema Hemoptysis Night sweats Epistaxis PND Pleuritic pain x Fatigue Syncope SOB Claudication x HUYNH MSK RENAL ENDO GI x All negative x All negative x All negative x All negative Arthralgias Frequency Heat intolerance Blood in stool Myalgias Urgency Cold intolerance Dysphagia Weakness Hematuria Polydipsia Odynophagia Stiffness Flank pain Polyphagia Abdominal discomfort Dysuria Cushingoid Constipation Foamy urine Diarrhea Discharge Nausea/Vomiting LYMPH SKIN NEURO PSYCH x All negative x All negative x All negative x All negative Swollen nodes Rash Seizures Depressed affect Tender nodes Ulcers Tremors Occupational stress Diffuse nodes Bruising Spasticity Anxiety Local nodes Tanned skin Focal weakness Insomnia Night sweats Telangiectasias Diplopia Paresthesias Dizziness FAMILY HISTORY: Family History Problem Relation Age of Onset ??? Breast Cancer Neg Hx ??? Ovarian Cancer Neg Hx ??? Anesthesia Reaction Neg Hx SOCIAL HISTORY: Social History Tobacco Use ??? Smoking status: Former Smoker Packs/day: 1.00 Years: 30.00 Pack years: 30.00 Types: Cigarettes Last attempt to quit: 04/05/2019 Years since quittin.4 ??? Smokeless tobacco: Never Used Substance Use Topics ??? Alcohol use: No Alcohol/week: 0.0 standard drinks MEDICATIONS: Current Outpatient Medications Medication Sig Dispense Refill ??? rosuvastatin (Crestor) 40 mg Tablet daily. ??? fluticasone propion-salmeterol (ADVAIR) 250-50 mcg/dose Disk with Device Inhale 1 puff into thelungs every 12 hours. ??? anastrozole (ARIMIDEX) 1 mg Tablet Take [...] as needed for Pain.40 tablet 0 ??? ipratropium-albuterol (COMBIVENT RESPIMAT) 20-100 mcg/actuation Mist Inhale 1 puff into the lungs every 6 hours as needed for Wheezing. Reported on 12/14/2016 ??? levothyroxine (SYNTHROID) 25 mcg Tablet Take by mouth daily. 0 ??? albuterol 90 mcg/actuation HFA Aerosol Inhaler Inhale 2 puffs into the lungs every 4 hours as needed for Wheezing. Use with spacer ??? loratadine (CLARITIN) 10 mg Tablet Take 10 mg by mouth daily. Reported on 06/12/2016 No current facility-administered medications for this visit. ALLERGIES: Patient has no known allergies. PHYSICAL EXAMINATION: Vital Signs: BP 126/71 Pulse 89 Ht 168.9 cm (5' 6.5) Wt 92.5 kg (204 lb) SpO2 98% BMI 32.43 kg/m?? Exam Details: General: Pleasant 64 y.o. female in no acute distress Eyes: No scleral icterus ENT: Moist mucous membranes Heart: Regular rate and rhythm, normal S1/S2, no murmurs/rubs/gallops appreciated Lungs: Clear to ascultation bilaterally Abdomen: Soft, non-tender, non-distended, normoactive bowel sounds noted. Extremities: No peripheral edema noted. No ulcerations noted. Vessels: No carotid bruits appreciated. Neuro: No gross abnormalities noted Psych: Alert and oriented 3 x, normal affect DATA PERSONALLY REVIEWED: EKG 09/22/2019: NSR 81 bpm, no significant ST-T wave changes ASSESSMENT AND PLAN: #1 Small pericardial effusion #2 Dyspnea on exertion #3 History of breast cancer Mrs. Jensen is a very pleasant 64 year old woman with history of breast cancer s/p lumpectomy/chemo/radation, COPD, and persistent small pericardial effusion who presents for further evaluation of pericardial effusion and HUYNH. Discussed that CT can overestimate size of pericardial effusion and thiscould also be physiological although given history of cancer and XRT, should evaluate further with TTE. Given HUYNH, will also evaluate for constriction at time of TTE as she's higher risk from prior radiation. Depending on size of pericardial effusion, that will determine further follow-up. Plan: 1. TTE with constriction protocol. 2. Return to clinic after TTE. Thank you for allowing me to participate in the care of your patient. Please do not hesitate to contact me with any questions or concerns. Federico Horne MD, MPH, [facility] Cardiovascular Sponge ClipperDirector Of Content [place] [address] documented in this encounter Plan of Treatment Upcoming Encounters Date Type Department Care Team (Late st Contact Info) Description 12/04/2024 11:00 AM EDT Office Visit [place] [address] Roddy Olson MD [facility] [place] [address] documented as of this encounter Procedures Procedure Name Priority Date/Time Associated Diagnosis Comments EKG 12-LEAD Routine 09/22/2019 4:05 PM EDT Encounter to establish care Pericardial effusion (noninflammatory) documented in this encounter Results * ECHO COMPLETE (11/12/2019 1:55 PM EDT) EF 60 HEARTLAB SYSTEM Anatomical Region Laterality Modality Other 11/12/2019 Narrative 11/12/2019 3:30 PM EDT Procedure: ?Transthoracic Echocardiogram Patient: ?CAMILA CUNNINGHAM R ?(Age): 1955(64y) Med Rec#: ? [id number] ?Sex: ?F ? Site Loc: ? [facility] ?Ht / Wt: ??167.64(cm)/92.9 Pt. Loc: ?Echo Lab ?BSA: ?2.02 Study Date: ?? 11/12/2019 ?Pt. Type: Outpatient Tape: ? 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 137/80 SUMMARY: 1. The left ventricular chamber size is normal. Borderline concentric left ventricular hypertrophy is observed. ??There is normal global and segmental left ventricular systolic function. The quantitative left ventricular ejection fraction by 3-D rendering is 60%. 2. Right ventricular chamber size, wall thickness, and systolic function are within normal limits. Pulmonary artery hypertension could not be assessed due to inadequate tricuspid regurgitation jet. 3. The atria appear normal in size. 4. There is a small circumferential pericardial effusion. There is no echo evidence of pericardial tamponade or constriction. 5. There is mild dilatation of the ascending aorta (3.8cm). 6. There is no prior study available for comparison. See remainder of report for additional findings. Findings ? : Study Quality: ? Adequate Left Ventricle: ? The left ventricular chamber size is normal. ?Borderline concentric left ventricular hypertrophy is observed. ?There is no evidence of LVOT obstruction. ?No ventricular septal defect is visualized. ?There is normal global left ventricular systolic function. ?The quantitative left ventricular ejection fraction by 3-D rendering is 60%.Avg GLS -14% (GE) ?There are no left ventricular segmental wall motion abnormalities. ?Left ventricular diastolic function is probably abnormal. ?The left ventricular diastolic filling pattern is consistent with impaired LV relaxation. ?Doppler assessment is consistent with normal left sided filling pressure. Left Atrium: ? The left atrium is normal in size. ?No atrial septal defect is visualized. Right Ventricle: ? Right ventricular chamber size, wall thickness, and systolic function are within normal limits. ?Pulmonary artery hypertension could not be assessed due to inadequate tricuspid regurgitation jet. ?The estimated right atrial pressure is 3 mmHg. Right Atrium: ? The right atrium appears normal. Aortic Valve: ? The aortic valve is trileaflet. The leaflets are thin with normal excursion. There is no aortic stenosis or regurgitation present. Mitral Valve: ? The mitral valve appears normal in structure and function. ?There is no evidence of mitral valve leaflet prolapse. ?There is mild (1+/4+) mitral regurgitation present. Tricuspid Valve: ? The tricuspid valve appears normal in structure and function. ?There is mild (1+/4+) tricuspid regurgitation present. Pulmonic Valve: ? The pulmonic valve appears normal in structure and function. ?There is no pulmonic stenosis present. ?There is no evidence of pulmonic regurgitation. Pericardium: ? There is a small circumferential pericardial effusion. ?There is no echo evidence of pericardial tamponade. Aorta: ? The aortic root is normal in size. ?There is mild dilatation of the ascending aorta.3.8cm ?There is no evidence of coarctation of the aorta. Pulmonary Artery: ? The main pulmonary artery appears normal. Venous: ? The inferior vena cava appears normal in size. ?There is a greater than 50% respiratory change in the inferior vena cava dimension. ?Hepatic vein systolic flow is normal. ?The superior vena cava appears normal. Misc: ? See remainder of report for additional findings. ?Two-dimensional echo, spectral Doppler and color Doppler performed. ?Three-dimensional echocardiogram performed. ?GARETT performed ?Myocardial Strain Imaging Chambers 2D ?Value ?Units (Range) ? RVIDd ??Base ? 3.1 ?cm ? RVIDd ??Mid (AP) ? 19 ? cm ? IVSd (2D) ? 1.05 ? cm ? LVPWd (2D) ?1.08 ? cm ? IVS:LVPW ratio (2D) 0.97 ? ratio ? RWT (2D) ?0.46 ? ratio ? RWT PW (2D) ? 0.47 ? ratio ? LVIDd (2D) ?4.65 ? cm ? LVIDs (2D) ?3.27 ? cm ? LVIDd (2D) index ?2.3 ?cm/m2 ? LVIDs (2D) index ?1.62 ? cm/m2 ? LV FS (2D) ?29.69 ?% ? EF Teichholz (2D) ?? 56.78 ?% ? Ao root diameter (2D3.12 ? cm (2.1 - 3.6) ? Ascending Ao ?3.79 ? cm (2 - 3.5) ? Volumes/Mass ?Value ?Units (Range) ? LA Area 4 CH ?16 ? cm2 (<21) ? LA ESV BP (A/L) inde22 ? ml/m2 ? RA AREA 4CH ? 10 ? cm2 ? LV ESV SP 4CH (MOD) 43.9 ? ml ? LV ESV SP 2CH (MOD) 41.93 ?ml ? LV EDV BP ? 92.62 ?ml ? LV ESV BP ? 44.03 ?ml ? LV EDV BP index ? 45.82 ?ml/m2 ? LV ESV BP index ? 21.78 ?ml/m2 ? BP EF (MOD) ? 52.46 ?% ? LV mass (2D) ?176.75 ? g ? LV mass (2D) index ??87.45 ?g/m2 ? Diastolic/Systolic Function ?Value ?Units (Range) ? MV E-wave Vmax ?0.57 ? m/sec ? MV deceleration xlrj536.51 ? msec ? MV A-wave Vmax ?0.87 ? m/sec ? MV E:A ratio ?0.65 ? ratio ? LV septal e' Vmax ?? 0.06 ? m/sec ? LV lateral e' Vmax ??0.05 ? m/sec ? LV average e' Vmax ??0.06 ? m/sec ? LV E:e' septal ratio9.42 ? ratio ? LV E:e' lateral rati11.3 ? ratio ? LV average E:e' rati10.27 ?ratio ? Tricuspid Valve ?Value ?Units (Range) ? TAPSE ? 1.7 ?cm ? RV lateral s' Vmax ??0.13 ? m/sec ? RAP ? 3 ?mmHg ? Wall Motion: Segment Name ?Rest ? Base-Anteroseptal ?? Normal ? Base-Anterior ? Normal ? Base-Anterolateral ??Normal ? Base-Posterolateral Normal ? Base-Inferior ? Normal ? Base-Inferoseptal ?? Normal ? Mid-Anteroseptal ?Normal ? Mid-Anterior ?Normal ? Mid-Anterolateral ?? Normal ? Mid-Posterolateral ??Normal ? Mid-Inferior ?Normal ? Mid-Inferoseptal ?Normal ? [place]-Septal ? Normal ? [place]-Anterior ? Normal ? [place]-Lateral ?Normal ? [place]-Inferior ? Normal ? [place]-Tip ?Normal ? This report has been electronically signed by: Vasu Heard MD ? 11/12/2019 15:29:08 Images reviewed and interpretation verified [facility] Cardiac Ultrasound Laboratory Procedure Note Vasu Heard MD - 11/12/2019 Procedure: Transthoracic Echocardiogram Patient: CAMILA MARINO(Age): 1955(64y) Med Rec#: [id number] Sex: F Site Loc: [facility] Ht / Wt: 167.64(cm)/92.9 Pt. Loc: Echo Lab BSA: 2.02 Study Date: 11/12/2019 Pt. 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 The left ventricular chamber size is normal. Borderline concentric left ventricular hypertrophy is observed. There is normal global and segmental left ventricular systolic function. The quantitative left ventricular ejection fraction by 3-D rendering is 60%. 2. Right ventricular chamber size, wall thickness, and systolic function are within normal limits. Pulmonary artery hypertension could not be assessed due to inadequate tricuspid regurgitation jet. 3. The atria appear normal in size. 4. There is a small circumferential pericardial effusion. There is no echo evidence of pericardial tamponade or constriction. 5. There is mild dilatation of the ascending aorta (3.8cm). 6. There is no prior study available for comparison. See remainder of report for additional findings. Findings : Study Quality: Adequate Left Ventricle: The left ventricular chamber size is normal. Borderline concentric left ventricular hypertrophy is observed. There is no evidence of LVOT obstruction. No ventricular septal defect is visualized. There is normal global left ventricular systolic function. The quantitative left ventricular ejection fraction by 3-D rendering is 60%.Avg GLS -14% (GE) There are no left ventricular segmental wall motion abnormalities. Left ventricular diastolic function is probably abnormal. The left ventricular diastolic filling pattern is consistent with impaired LV relaxation. Doppler assessment is consistent with normal left sided filling pressure. Left Atrium: The left atrium is normal in size. No atrial septal defect is visualized. Right Ventricle: Right ventricular chamber size, wall thickness, and systolic function are within normal limits. Pulmonary artery hypertension could not be assessed due to inadequate tricuspid regurgitation jet. The estimated right atrial pressure is 3 mmHg. Right Atrium: The right atrium appears normal. Aortic Valve: The aortic valve is trileaflet. The leaflets are thin with normal excursion. There is no aortic stenosis or regurgitation present. Mitral Valve: The mitral valve appears normal in structure and function. There is no evidence of mitral valve leaflet prolapse. There is mild (1+/4+) mitral regurgitation present. Tricuspid Valve: The tricuspid valve appears normal in structure and function. There is mild (1+/4+) tricuspid regurgitation present. Pulmonic Valve: The pulmonic valve appears normal in structure and function. There is no pulmonic stenosis present. There is no evidence of pulmonic regurgitation. Pericardium: There is a small circumferential pericardial effusion. There is no echo evidence of pericardial tamponade. Aorta: The aortic root is normal in size. There is mild dilatation of the ascending aorta.3.8cm There is no evidence of coarctation of the aorta. Pulmonary Artery: The main pulmonary artery appears normal. Venous: The inferior vena cava appears normal in size. There is a greater than 50% respiratory change in the inferior vena cava dimension. Hepatic vein systolic flow is normal. The superior vena cava appears normal. Misc: See remainder of report for additional findings. Two-dimensional echo, spectral Doppler and color Doppler performed. Three-dimensional echocardiogram performed. GARETT performed Myocardial Strain Imaging Chambers 2D Value Units (Range) RVIDd Base 3.1 cm RVIDd Mid (AP) 19 cm IVSd (2D) 1.05 cm LVPWd (2D) 1.08 cm IVS:LVPW ratio (2D) 0.97 ratio RWT (2D) 0.46 ratio RWT PW (2D) 0.47 ratio LVIDd (2D) 4.65 cm LVIDs (2D) 3.27 cm LVIDd (2D) index 2.3 cm/m2 LVIDs (2D) index 1.62 cm/m2 LV FS (2D) 29.69 % EF Teichholz (2D) 56.78 % Ao root diameter (2D3.12 cm (2.1 - 3.6) Ascending Ao 3.79 cm (2 - 3.5) Volumes/Mass Value Units (Range) LA Area 4 CH 16 cm2 (<21) LA ESV BP (A/L) inde22 ml/m2 RA AREA 4CH 10 cm2 LV ESV SP 4CH (MOD) 43.9 ml LV ESV SP 2CH (MOD) 41.93 ml LV EDV BP 92.62 ml LV ESV BP 44.03 ml LV EDV BP index 45.82 ml/m2 LV ESV BP index 21.78 ml/m2 BP EF (MOD) 52.46 % LV mass (2D) 176.75 g LV mass (2D) index 87.45 g/m2 Diastolic/Systolic Function Value Units (Range) MV E-wave Vmax 0.57 m/sec MV deceleration bned823.51 msec MV A-wave Vmax 0.87 m/sec MV E:A ratio 0.65 ratio LV septal e' Vmax 0.06 m/sec LV lateral e' Vmax 0.05 m/sec LV average e' Vmax 0.06 m/sec LV E:e' septal ratio9.42 ratio LV E:e' lateral rati11.3 ratio LV average E:e' rati10.27 ratio Tricuspid Valve Value Units (Range) TAPSE 1.7 cm RV lateral s' Vmax 0.13 m/sec RAP 3 mmHg Wall Motion: Segment Name Rest Base-Anteroseptal Normal Base-Anterior Normal Base-Anterolateral Normal Base-Posterolateral Normal Base-Inferior Normal Base-Inferoseptal Normal Mid-Anteroseptal Normal Mid-Anterior Normal Mid-Anterolateral Normal Mid-Posterolateral Normal Mid-Inferior Normal Mid-Inferoseptal Normal [place]-Septal Normal [place]-Anterior Normal [place]-Lateral Normal [place]-Inferior Normal [place]-Tip Normal This report has been electronically signed by: Vasu Heard MD 11/12/2019 15:29:08 Images reviewed and interpretation verified [facility] Cardiac Ultrasound Laboratory Federico Horne MD ECHO ORDERABLES * EKG 12 Lead (09/22/2019 4:05 PM EDT) Ventricular rate 81 BPM MUSE SYSTEM Atrial Rate 81 BPM MUSE SYSTEM P-R Interval 186 ms MUSE SYSTEM QRS Duration 72 ms MUSE SYSTEM Q-T Interval 392 ms MUSE SYSTEM QTC Calculated (Bezet) 455 ms MUSE SYSTEM Calculated P [place] 79 degrees MUSE SYSTEM Calculated R [place] 2 degrees MUSE SYSTEM Calculated T [place] 80 degrees MUSE SYSTEM INTERPRETATION Normal sinus rhythm Normal ECG No previous ECGs available Confirmed by MD Cornelia, Heidi ([id number]) on 09/23/2019 9:48:37 PM MUSE SYSTEM 09/22/2019 4:05 PM EDT 09/23/2019 9:48 PM EDT Federico Horne MD ECG ORDERABLES MUSE SYSTEM documented in this encounter Visit Diagnoses Diagnosis Encounter to establish care Other reasons for seeking consultation Pericardial effusion (noninflammatory) HUYNH (dyspnea on exertion) Other dyspnea and respiratory abnormality History of breast cancer Personal history of malignant neoplasm of breast Pericardial effusion (noninflammatory) documented in this encounter Care Teams Job Molder Relationship Specialty Start Date End Date Lisa Zacarias APRN PCP - General Family Medicine 01/08/19 documented as of this encounter
--- OUTSIDE RECORDS SUMMARY | 2024-02-04 18:38 | XMS_ITS | Encounter Summary ---
Author Organization [facility], Located Within [facility] [place] [address] Care Team Providers Care Litigator Name Role Phone Lisa Zacarias APRN Primary Care Provider [phone] Encounter Details Date Type Department Care Team (Late st Contact Info) Description 04/19/2022 Orders [place] [address] France Lopez MD [facility] [place] [address] Social History Tobacco Use Types Packs/Day Years [...] AM EDT Office [place] [id number] Roddy Olson MD [facility] [place] [address] documented as of this encounter Visit Diagnoses Not on filedocumented in this encounter Care Teams Litigator Relationship Specialty Start Date End Date Lisa Zacarias APRN PCP - General Family Medicine 01/08/19 documented as of this encounter
--- OUTSIDE RECORDS SUMMARY | 2024-02-04 18:38 | XMS_ITS | Encounter Summary ---
Author Organization [facility] Address [facility] [place] [address] Care Team Providers Care Rn Compliance Name Role Phone Lisa Zacarias ASSEMBLY STOCK SUPERVISOR Primary Care Provider [phone] Reason for Visit * Consultation (Routine) - Closed Specialty Diagnoses / Procedures Referred By Saad escobar Referred To Contact Endocrinology Diagnoses Other specified disorders of bone density and structure, unspecified site Lisa Zacarias, ASSEMBLY STOCK SUPERVISOR [address] [place] [address] [facility] Endocrinology [address] [place] [phone] Referral ID Status Reason Start Date Expiration Date V isits Requested Visits Authorized [id number] Closed Consult, Test & Treat Connection Center PCP Updated and/or Approved 05/16/2021 08/08/2021 12 12 Encounter Details Date Type Department Care Team (Late st Contact Info) Description 09/27/2021 4:00 PM EDT Office [place] [address] France Lopez MD [facility] [place] [address] Osteoporosis, unspecified osteoporosis type, unspecified pathological fracture presence; Weight gain Social History Tobacco Use Types Packs/Day Years [...] Sign Reading Time Taken Comments Blood Pressure 152/81 09/27/2021 4:01 PM EDT Pulse 89 09/27/2021 4:01 PM EDT Temperature 36.7 ??C (98 ??F) 09/27/2021 4:01 PM EDT Respiratory Rate - - Oxygen Saturation 98% 09/27/2021 4:01 PM EDT Inhaled Oxygen Concentration - - Weight 99.3 kg (219 lb) 09/27/2021 4:01 PM EDT Height 167.6 cm (5' 6) 09/27/2021 4:01 PM EDT Body Mass Index 35.35 09/27/2021 4:01 PM EDT documented in this encounter Progress Notes * France Lopez MD - 09/27/2021 4:00 PM EDT Date of Visit: 09/27/2021 Patient Name: Kelley Jensen : 1955 PCP: Lisa Zacarias APRN Reason for Referral We are asked to consult on Mrs Kelley Jensen, 66yo women with Osteoporosis by Lisa Zacarias, BAUTISTA. 04/2021 she fell of stairs and had ankle fx, but that was a not a minimal trauma fracture. Pt has hx of breast cancer and AI use from 10/2015 to 10/2020. Did receive Prolia x2, first 03/2020 and second time 08/2020. She also c/o about 20-30lbs weight gain and inability to loose that. Her last BMD by DXA done on 03/2021 (outside) LS - 2.3 SD LFN -1.0 SD LH -0 SD Distal 1/3 forearm -2.8 SD on T score Other risk factors for fracture/osteoporosis are: [] Yes [x] No Smoking, if yes, how long [] Yes [x] No Drinking alcohol. If yes, how much [] Yes [x] No Exercise If yes how long and what kind of exercise [] Yes [x] No Stomach or bowel surgery. If yes, When and what kind [] Yes [x] No Loose bowel movements. If yes, how frequently and how long [x] Yes [] No Loss of height 1/2 [] Yes [x] No History of kidney stones? If yes, when and how many episodes? [] Yes [x] No Kidney or liver problems? If yes, what kind and how long? For women: Start of menstrual cycle 15 End of menstrual cycle 40s, hysterectomy in 2016 per pt Daily calcium intake: [] 0-100 mg [] 101-200 mg [] 201-300 mg [] 301-400 mg [] 401-500 mg [] 501-600 mg [x] 601-700 mg from food, no supplements [] 701-900 mg [] 901-1100 mg [] 1399-3412 mg [] 4659-2838 mg [] Above 1500 mg Medications: Current Outpatient Medications on File Prior to Visit Medication Sig Dispense Refill ??? cholecalciferol, Vitamin D3, (Vitamin D3) 1,000 unit Tablet Take by mouth daily. ??? cyanocobalamin, Vitamin B-12, (Vitamin B-12) 1,000 mcg Tablet Take 1,000 mcg by mouth daily. ??? calcium citrate/vitamin D2 (ELLIOTT-CITRATE ORAL) Take by mouth 2 times daily. ??? primidone (Mysoline) 50 mg Tablet Take 100 mg by mouth nightly. ??? BIOTIN ORAL Take 10,000 mg by mouth daily. ??? tiotropium-olodateroL (Stiolto Respimat) 2.5-2.5 mcg/actuation Mist Inhale 2 puffs into the lungs daily. ??? rosuvastatin (Crestor) 40 mg Tablet Take 40 mg by mouth daily. ??? albuterol 90 mcg/actuation HFA Aerosol Inhaler Inhale 2 puffs into the lungs every 4 hours as needed for Wheezing. Use with spacer ??? ibuprofen (ADVIL;MOTRIN) 600 mg Tablet Take 1 tablet by mouth every 6 hours as needed for Pain.40 tablet 0 ??? levothyroxine (SYNTHROID) 25 mcg Tablet Take by mouth daily. 0 ??? buPROPion XL (Wellbutrin XL) 150 mg Tablet Extended Release 24 hr Take 150 mg by mouth 2 times daily. ??? nicotine (Nicoderm CQ) 14 mg/24 hr Patch 24 hr Change 1 patch on the skin every 24 hours. ??? [DISCONTINUED] b complex vitamins Capsule Take 1 capsule by mouth daily. ??? [DISCONTINUED] ergocalciferol, vitamin D2, (VITAMIN D ORAL) Take by mouth. ??? anastrozole (Arimidex) 1 mg Tablet Take 1 tablet by mouth daily. (Patient not taking: No sig reported) 90 tablet 2 ??? citalopram (CELEXA) 20 mg Tablet Take 1 tablet by mouth daily. (Patient not taking: No sig reported) 60 tablet 6 ??? loratadine (CLARITIN) 10 mg Tablet Take 10 mg by mouth daily. Reported on 06/12/2016 No current facility-administered medications on file prior to visit. [] Yes [x] No Glucocorticoid dose. When first prescribed? [] Yes [x] No Cyclosporine dose. When first prescribed? [] Yes [x] No Phenobarbital and phenytoin. When first prescribed? [] Yes [x] No Rosiglitazone, pioglitazone. When first prescribed? [] Yes [x] No PPI. When first prescribed? [x] Yes [] No SSRI. When first prescribed? 1-2 years, off now [] Yes [x] No Thiaizdes, loop diuretics. When first prescribed? [] Yes [x] No Estrogens, testosterone. When first prescribed? [] Yes [x] No Calcitonin. When first prescribed? [] Yes [x] No Aromatase inhibitors (breast CA). When first prescribed? [] Yes [x] No Androgen deprivation therapy (prostate CA). When first prescribed? [] Yes [x] No Alendronate, risedronate, ibandronate. When first prescribed? PMH: Patient Active Problem List Diagnosis Code ??? Dietary counseling and surveillance Z71.3 ??? Malignant neoplasm of upper-outer quadrant of left female breast C50.412 ??? Abnormal ultrasound of endometrium R93.5 ??? Obesity E66.9 ??? Abnormal endometrial ultrasound R93.5 ??? Former smoker Z87.891 ??? COPD (chronic obstructive pulmonary disease) J44.9 ??? Malignant neoplasm of upper-outer quadrant of left breast in female, estrogen receptor yhvlhndnL72.412, Z17.0 ??? Osteopenia M85.80 ??? terminal carman current use of aromatase inhibitor Z79.811 Allergy: No Known Allergies Family History Problem Relation Age of Onset ??? Breast Cancer Neg Hx ??? Ovarian Cancer Neg Hx ??? Anesthesia Reaction Neg Hx Hip fracture in parents: no Osteopenia/Osteoporosis: yes height loss Hyperthyroidism/Hyperparathyrodism: no Social History Socioeconomic History ??? Marital status: Spouse name: Not on file ??? Number of children: Not on file ??? Years of education: Not on file ??? Highest education level: Not on file Occupational History ??? Not on file Tobacco Use ??? Smoking status: Former Smoker Packs/day: 1.00 Years: 30.00 Pack years: 30.00 Types: Cigarettes Quit date: 04/05/2019 Years since quittin.4 ??? Smokeless tobacco: Never Used ??? Tobacco comment: 03/11/20 smoking about half pack a day, on chantix Vaping Use ??? Vaping Use: Never used Substance and Sexual Activity ??? Alcohol use: No Alcohol/week: 0.0 standard drinks ??? Drug use: No ??? Sexual activity: Not on file Other Topics Concern ??? Not on file Social History Narrative ??? Not on file Social Determinants of Health Financial Resource Strain: Not on file Food Insecurity: Not on file Transportation Needs: Not on file Physical Activity: Not on file Housing Stability: Not on file Physical Examination: BP 152/81 Pulse 89 Temp 36.7 ??C (98 ??F) Ht 167.6 cm (5' 6) Wt 99.3 kg (219 lb) SpO2 98% BMI 35.35 kg/m?? Spine: without kyphosis, without pain on palpation. Patient able to stand up without assistance Skin: no villalta face, acne, supraclavicular fat pads, purple striae Appearance: well hydrated, well nourished, oriented x 3, in nad. Labs 08/2021 PTH elevated, Ca 9.2, A1C 5.8, TSH 2.6 05/2021 25 vitamin D 33.8, Chem 7 in good range. Assessment and Plan 1. Osteoporosis: Mrs Kelley Jensen has osteoporosis due to use of AIs for breast cancer, low Ca intake. Prolia was used x2, last one 08/2020, but nothing else after that, so bone loss after stopping would be quick. Her A1C is elevated in glucose intolerance range, would ask PCP to consider starting metformin in addition to weight loss diet, which she tells me is not working. May also consider adding Wegovy for weight loss as BMI is 35, she has HTN. A. As patient's Ca intake is 700 mg from food. Will provide patient with list of Ca rich foods. Get24h urine Ca, but as PTH is elevated it is clear that it is too low. B. Patient also does have Vitamin D at goal is 30 ng/ml and above. C. Will order BMD by DXA 09/2022 D. As 25 Vit D is at normal range and if 24h urine Ca at good level, will start zolendronic acid. E. I will schedule patient for outpatient visit at 12 month. Thank you for allowing me to participate in the care of this very pleasant patient. I spend 60min in chart review, DXA, labs, discussing osteoporosis and writing my note. Sincerely, France Lopez MD Professor documented in this encounter Plan of Treatment Upcoming Encounters Date Type Department Care Team (Late st Contact Info) Description 12/04/2024 11:00 AM EDT Office [place] [address] Roddy Olson MD [facility] [place] [address] documented as of this encounter Procedures Procedure Name Priority Date/Time Associated Diagnosis Comments HC PARATHYROID HORMONE(PTH INTACT Routine 09/27/2021 5:04 PM EDT Osteoporosis, unspecified osteoporosis type, unspecified pathological fracture presence Weight gain HC THYROID STIMULATING HORMONE, SERUM Routine 09/27/2021 5:04 PM EDT Osteoporosis, unspecified osteoporosis type, unspecified pathological fracture presence Weight gain HC VENIPUNCTURE Routine 09/27/2021 5:04 PM EDT Osteoporosis, unspecified osteoporosis type, unspecified pathological fracture presence Weight gain HC CALCIUM, SERUM Routine 09/27/2021 5:0 4 PM EDT Osteoporosis, unspecified osteoporosis type, unspecified pathological fracture presence Weight gain documented in this encounter Results * (ABNORMAL) Hemoglobin A1c (09/27/2021 5:04 PM EDT) [facility] Hemoglobin A1c 5.8(H) 4.3 - 5.6 % [facility] Comment: Reference Range: 4.3 - 5.6% [...] Mellitus, Diabetes Care 2013; 36: Suppl. 1, S67-25 Estimated Average Glucose 121 mg/dL [facility] Comment: eAG equivalents for HbA1c percentages: [...] into estimated average glucose values. ??Diabetes Care 2008:31(8):3517-3543. Blood 09/27/2021 5:04 PM EDT 09/27/2021 5:24 PM EDT Narrative Resulting Agency Comment Spec In Lab France Lopez MD CHEMISTRY ORDERABLES [facility] [place] [address] * Calcium (09/27/2021 5:04 PM EDT) Calcium 9.2 8.5 - 10.5 mg/dL [facility] Blood 09/27/2021 5:04 PM EDT 09/27/2021 5:24 PM EDT Narrative Resulting Agency Comment Spec In Lab France Lopez MD CHEMISTRY ORDERABLES Performing Organization Address [facility]/ZIP Co de Phone Number [facility] [place] [address] * (ABNORMAL) PTH (09/27/2021 5:04 PM EDT) Parathyroid Hormone 76(H) 15 - 65 pg/mL [facility] Blood 09/27/2021 5:04 PM EDT 09/27/2021 5:24 PM EDT Narrative Resulting Agency Comment Spec In Lab France Lopez MD CHEMISTRY ORDERABLES Performing Organization Address City/[facility]/ZIP Co de Phone Number [facility] [place] [address] * TSH (09/27/2021 5:04 PM EDT) Thyroid Stimulating Hormone 2.60 0.27 - 4.20 mcIU/mL [facility] Comment: Reference Interval (mcIU/mL): Females: ??First Trimester: 0.23-3.88 ??Second Trimester: 0.22-3.90 ??Third Trimester: 0.44-4.66 Blood 09/27/2021 5:04 PM EDT 09/27/2021 5:24 PM EDT Narrative Resulting Agency Comment Spec In Lab France Lopez MD CHEMISTRY ORDERABLES Performing Organization Address City/State/[facility] Co de Phone Number [facility] [place] [address] documented in this encounter Visit Diagnoses Diagnosis Osteoporosis, unspecified osteoporosis type, unspecified pathological fracture presence Weight gain Abnormal weight gain documented in this encounter Care Teams Rn Compliance Relationship Specialty Start Date End Date Lisa Zacarias, ASSEMBLY STOCK SUPERVISOR PCP - General Family Medicine 01/08/19 documented as of this encounter
--- OUTSIDE RECORDS SUMMARY | 2024-02-04 18:38 | XMS_ITS | Encounter Summary ---
Author Organization [facility] [place] [address] Care Team Providers Care Financial Brokers Name Role Phone Lisa Zacarias APRN Primary Care Provider [phone] Encounter Details Date Type Department Care Team (Late st Contact Info) Description 11/17/2019 Telephone Cardiology at [address] [phone] Lisa Roe LNA Social History Tobacco Use Types Packs/Day Years [...] encounter Miscellaneous Notes * Telephone Encounter - Lisa Roe LNA - 11/17/2019 8:40 AM EDT I spoke with Ms. Jensen regarding her upcoming Visit with Dr. Horne. No current home WT or BP, only in EDH. She states she is feeling pretty good other than every once in a while over the past few weeks, shehas sharp pain in her ribs with uncertainty of why, resides once she stops moving for a moment. Often having SOB, unsure if it is from COPD. All medications and allergies have been updated. documented in this encounter Plan of Treatment Upcoming Encounters Date Type Department Care Team (Late st Contact Info) Description 12/04/2024 11:00 AM EDT Office [place] [address] Roddy Olson MD [facility] [place] [address] documented as of this encounter Visit Diagnoses Not on filedocumented in this encounter Care Teams Financial Brokers Relationship Specialty Start Date End Date Lisa Zacarias APRN PCP - General Family Medicine 01/08/19 documented as of this encounter
--- OUTSIDE RECORDS SUMMARY | 2024-02-04 18:38 | XMS_ITS | Encounter Summary ---
Author Organization [facility] [place] [address] Care Team Providers Care Sales Enablement Analyst Name Role Phone Lisa Zacarias APRN Primary Care Provider [phone] Encounter Details Date Type Department Care Team (Late st Contact Info) Description 03/01/2023 Tele[place] [address] Zoila Segundo Social History Tobacco Use Types Packs/Day Years [...] encounter Miscellaneous Notes * Telephone Encounter - Zoila Segundo - 03/01/2023 4:36 PM EDT Copied from [facility] #[id number]. Topic: Specialty Dept CRMs - Generic Call >> Feb 22, 2023 10:51 AM Kiko Champagne wrote: Specialist: PFT only Relationship (if other than patient-full name): Michael with [facility] Reason for Call: Patient scheduled for basic bundle PFT on 06/07/23 at 12:30, coordinated with Dr. Olson appointment. documented in this encounter Plan of Treatment Upcoming Encounters Date Type Department Care Team (Late st Contact Info) Description 12/04/2024 11:00 AM EDT Office [place] [address] Roddy Olson MD [facility] [place] [address] documented as of this encounter Visit Diagnoses Not on filedocumented in this encounter Care Teams Sales Enablement Analyst Relationship Specialty Start Date End Date Lisa Zacarias APRN PCP - General Family Medicine 01/08/19 documented as of this encounter
--- OUTSIDE RECORDS SUMMARY | 2024-02-04 18:38 | XMS_ITS | Encounter Summary ---
Author Organization [place] [address] Care Team Providers Care Freight Claim Investigator Name Role Phone Lisa Zacarias BAUTISTA Primary Care Provider Reason for Visit * Diagnostic Test (Routine) - Closed Specialty Diagnoses / Procedures Referred By Saad escobar Referred To Contact Radiology Diagnoses Atypical chest pain HUYNH (dyspnea on exertion) Coronary artery calcification Procedures NM Exercise Stress and Rest Myocardial Perfusion Federico Horne MD [facility] [place] [address] [place] [address] Referral ID Status Reason Start Date Expiration Date V isits Requested Visits Authorized [id number] Closed Specialty Service Requested 11/20/2019 05/18/2020 3 3 Encounter Details Date Type Department Care Team (Latest Contact Info) Description 11/28/2019 10:04 AM EDT Hospital Encounter [place] [address] Federico Horne MD [facility] [place] [address] Discharge Disposition: Home Social History [...] AM EDT Office [place] [address] Roddy Olson MD [facility] [place] [address] documented as of this encounter Procedures Procedure Name Priority Date/Time Associated Diagnosis Comments NM EXERCISE STRESS AND REST MYOCARDIAL PERFUSION Routine 11/28/2019 11:36 AM EDT Atypical chest pain HUYNH (dyspnea on exertion) Coronary artery calcification documented in this encounter Results * NM Exercise Stress CT Component (11/28/2019 12:04 PM EDT) Anatomical Region Laterality Modality Nuclear Medicine [...] report, please contact the number below. ? Electronically signed by: Giuseppe Sanders [facility] ([phone]), at 11/28/2019 2:54 PM Narrative 11/28/2019 2:54 PM EDT EXAMINATION: NM [...] this report, please contact the number below. Electronically signed by: Giuseppe Sanders [facility]([phone]), at 11/28/2019 2:54 PM Federico Horne MD [facility] NM ORDERABLES * NM Exercise Stress and Rest Myocardial [...] report, please contact the number below. ? Electronically signed by: Giuseppe Sanders [facility] ([phone]), at 11/28/2019 2:54 PM Narrative 11/28/2019 2:54 PM EDT EXAMINATION: NM [...] this report, please contact the number below. Electronically signed by: Giuseppe Sanders [facility]([phone]), at 11/28/2019 2:54 PM Federico Horne MD [facility] NM ORDERABLES documented in this encounter Visit Diagnoses Not on filedocumented in this encounter Administered Medications Inactive Administered Medications - up to 3 most recent administrations Medication Order MAR Action Action Date Dose Rate Site technetium (Tc-99m) sestamibi injection 0-30 mCi 0-30 mCi, Intravenous, ONCE PRN, 1 dose, Starting on Sun11/28/19 at 1020, Until Sun11/28/19 at 1017, Per Protocol, Radiology Contrast, Routine Given 11/28/2019 10:17 AM EDT 8.8 mCi Left Arm documented in this encounter Care Teams Freight Claim Investigator Relationship Specialty Start Date End Date Lisa Zacarias BAUTISTA PCP - General Family Medicine 01/08/19 documented as of this encounter
--- OUTSIDE RECORDS SUMMARY | 2024-02-04 18:38 | XMS_ITS | Encounter Summary ---
Author Organization [facility] [place] [address] Care Team Providers Care Funeral Car Chauffeur Name Role Phone Lisa Zacarias APRN Primary Care Provider [phone] Encounter Details Date Type Department Care Team (Late st Contact Info) Description 04/26/2020 Ancillary Procedure [place] [address] Giuseppe Shaw MD [facility] DR [place] [address] Social History Tobacco Use Types Packs/Day Years [...] Encounters Date Type Department Care Team (Late Contact Info) Description 12/04/2024 11:00 AM EDT Office [place] [phone] Roddy Olson MD [facility] [place] [address] documented as of this encounter Procedures Procedure Name Priority Date/Time Associated Diagnosis Comments FILM LIBRARY STORAGE ONLY MAMMO Routine 04/26/2020 12:00 AM EDT documented in this encounter Results * Film Library- Storage Only Mammo (04/26/2020 12:00 AM EDT) Narrative [facility] - 04/27/2020 3:53 PM EDT This exam is auto-finalizing. It's purpose is for storage only. Giuseppe Shaw MD IMG FILM LIBRARY ORD ERABLES [place], [place] documented in this encounter Visit Diagnoses Not on filedocumented in this encounter Care Teams Funeral Car Chauffeur Relationship Specialty Start Date End Date Lisa Zacarias APRN PCP - General Family Medicine 01/08/19 documented as of this encounter
--- OUTSIDE RECORDS SUMMARY | 2024-02-04 18:38 | XMS_ITS | Encounter Summary ---
Author Organization [facility] Address [facility] [place] [address] Care Team Providers Care Investigator Vice Name Role Phone Lisa Zacarias BAUTISTA Primary Care Provider [phone] Encounter Details Date Type Department Care Team (Late st Contact Info) Description 09/16/2020 2:30 PM EDT Office Visit Hematology/Oncology at [address] [address] Giuseppe Shaw MD [facility] DR [place] [address] Elvia Nelson APRN [address] [place] [address] DR HEMATOLOGY ONCOLOGY [place], [place] [id number] Malignant neoplasm of upper-outer quadrant of left breast in female, estrogen receptor positive; senior living current use of aromatase inhibitor Social History [...] Sign Reading Time Taken Comments Blood Pressure 148/62 09/16/2020 2:33 PM EDT Pulse 80 09/16/2020 2:33 PM EDT Temperature 36.3 ??C (97.3 ??F) 09/16/2020 2:33 PM ED T Respiratory Rate 20 09/16/2020 2:33 PM EDT Oxygen Saturation 95% 09/16/2020 2:33 PM EDT Inhaled Oxygen Concentration - - Weight 99.4 kg (219 lb 3.2 oz) 09/16/2020 2:33 P M EDT Height 167.6 cm (5' 6) 09/16/2020 2:33 PM EDT Body Mass Index 35.38 09/16/2020 2:33 PM EDT documented in this encounter Progress Notes * Elvia Nelson, SHIPPER - 09/16/2020 2:30 PM EDT Subjective: Patient ID: Kelley Jensen is a 65 y.o. female. Patient Active Problem List Diagnosis ??? Malignant neoplasm of upper-outer quadrant of left breast in female, estrogen receptor positive ??? Osteopenia ??? senior living current use of aromatase inhibitor ??? COPD (chronic obstructive pulmonary disease) ??? Former smoker 30 pack year history. ??? Abnormal endometrial ultrasound ??? Abnormal ultrasound of endometrium ??? Obesity BMI 32 ??? Malignant neoplasm of upper-outer quadrant of left female breast ??? Dietary counseling and surveillance HPI Patient ID: Kelley Jensen is a 64 y.o. female. ?? HPI Left breast cancer diagnosed 02/13 Mammographically detected Needle biopsy showed intraductal carcinoma, low-grade ER positive, RI positive, HER-2 negative Partial mastectomy and biopsy of left axillary node 02/13 0.7 cm primary, positive margin requiring reexcision to negative margin 1/3 lymph nodes positive Adjuvant AC/Taxol 03/16-08/17 Radiation therapy completed 10/15 Start Arimidex 11/14 DEXA scan 03/19 showed osteopenia left forearm and L-spine ?? I am meeting the patient for the first time in the [facility]. She has a history of left breast cancer. I believe the above summary captures her details. ?? Clinically she has been well. She is tolerating the Arimidex without difficulty. She has not had any hot flashes. ?? She was unaware that she had osteopenia on her DEXA scan from about 2 years ago. She is also unaware that Arimidex can increase the rate of bone loss. INTERVAL HPI 09/16/20 Kelley Martin is a 65 yo female diagnosed 2014 with ER/RI+; [id number] negative low grade intraductalleft breast cancer. (See history as summarized above.) Kelley returns to the [facility] onc[facility] clinic in [facility] today for routine follow-up and Prolia. Kelley has been doing well with regard to breast cancer. She has not noticed new breast lumps or bumps or breast changes. She has nearly completed the recommended five years of AI therapy. She denies new aches or pains related to that, and does not believe the Prolia injections have caused any side effects. She is most bothered currently by what she calls a frozen left shoulder. She is currently working with physical therapy. She has not noticed any left arm swelling or lymphedema of left arm or axillary area. Kelley also gets low back pain if she walks any distance. I am unclear if physical therapy is helping with that. She has been feeling a little more tired lately. She has COPD which is controlled well with her inhalers as needed. She successfully quit smoking in 04/20 using Chantix. She has no new shortness of breath, cough or chest pain. Her appetite is good, she has no GI complaints. She has had her first COVID vaccine. No Known Allergies Current Medications ??? b complex vitamins Capsule ??? ergocalciferol, vitamin D2, (VITAMIN D ORAL) ??? anastrozole (Arimidex) 1 mg Tablet ??? rosuvastatin (Crestor) 40 mg Tablet ??? fluticasone propion-salmeterol (ADVAIR) 250-50 mcg/dose Disk with Device ??? citalopram (CELEXA) 20 mg Tablet ??? levothyroxine (SYNTHROID) 25 mcg Tablet ??? anastrozole (Arimidex) 1 mg Tablet ??? albuterol 90 mcg/actuation HFA Aerosol Inhaler ??? acetaminophen (TYLENOL) 650 mg Tablet Sustained Release ??? ibuprofen (ADVIL;MOTRIN) 600 mg Tablet ??? loratadine (CLARITIN) 10 mg Tablet Review of Systems Constitutional: Negative. HENT: Negative. Respiratory: Negative for cough and shortness of breath. Cardiovascular: Negative for chest pain. Gastrointestinal: Negative for abdominal pain and nausea. Genitourinary: Negative. Musculoskeletal: Positive for arthralgias and myalgias. Low back pain when walking and left shoulder immobility Skin: Negative. Neurological: Negative. Hematological: Negative. Psychiatric/Behavioral: Negative. Objective: Physical Exam Vitals reviewed. Constitutional: Comments: Pleasant, well-nourished female in NAD HENT: Head: Normocephalic. Eyes: General: No scleral icterus. Cardiovascular: Rate and Rhythm: Normal rate and regular rhythm. Heart sounds: Normal heart sounds. Pulmonary: Breath sounds: Normal breath sounds. No wheezing or rales. Abdominal: Palpations: Abdomen is soft. Tenderness: There is no abdominal tenderness. Musculoskeletal: Right lower leg: No edema. Left lower leg: No edema. Comments: Limited ROM of left shoulder. Lymphadenopathy: Cervical: No cervical adenopathy. Skin: General: Skin is warm and dry. Neurological: Mental Status: She is oriented to person, place, and time. Coordination: Coordination normal. Psychiatric: Mood and Affect: Mood normal. Thought Content: Thought content normal. Breast Exam - No masses noted in right or left breast. No skin changes or dimpling noted. No nippledischarge. BP 148/62 (Patient Position: Sitting) Pulse 80 Temp 36.3 ??C (97.3 ??F) (Temporal) Resp 20 Ht 167.6 cm (5' 6) Wt 99.4 kg (219 lb 3.2 oz) SpO2 95% BMI 35.38 kg/m?? LABS 09/15/20 BUN 12; CREAT 0.8; CA++ 9.0; ALP 65; AST 25; ALT 53; K+ 4.1; NA++141. RECENT IMAGING 04/26/20 - Mammogram - IMPRESSION - BIRADS category 1 - negative. 03/21/18 - Dexa Scan - IMPRESSION - Osteopenia. Assessment and Plan: Assessment: Kelley Martin is a 65 yo female diagnosed 2014 with ER/RI+; [id number] negative low grade intraductalleft breast cancer. (See history as summarized above.) Kelley returns to the [facility] onc[facility] clinic in [facility] today for routine follow-up and Prolia. Kelley completes 5 years of AI therapy in 11/19. She has been tolerating the AI and Prolia without difficulty. She will Plan: Prolia today. Encouraged weight bearing exercise. Suggested Kelley may have less back pain walking using walking poles. Stop AI at end of October 2020 or when prescription is complete. Repeat Dexa Scan in late summer. Encouraged VIt D/Calcium supplement. RTC in 6 months. 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
--- OUTSIDE RECORDS SUMMARY | 2024-02-04 18:38 | XMS_ITS | Encounter Summary ---
Author Organization [facility] Address [facility] [place] [address] Care Team Providers Care Ultrasound Spec Name Role Phone Lisa Zacarias APRN Primary Care Provider [phone] Encounter Details Date Type Department Care Team (Late st Contact Info) Description 09/18/2019 Orders Only Cardiology at [address] [address] Federico Horne MD [facility] [place] [address] Encounter to establish care (Primary Dx); Pericardial effusion (noninflammatory) Social History Tobacco Use Types Packs/Day Years Used Date Smoking Tobacco: Every Day Cigarettes 1 30 Started: 02/25/1985; Last attempted to quit: 02/25/2015 Smokeless Tobacco: Never Alcohol Use Standard Drinks/Week [...] AM EDT Office [place] [phone] Roddy Olson MD [facility] DR THORACIC SURGERY [place], [place] [id number] documented as of this encounter Results * EKG 12 Lead (09/22/2019 4:05 PM EDT) Ventricular rate 81 BPM MUSE SYSTEM Atrial Rate 81 BPM MUSE SYSTEM P-R Interval 186 ms MUSE SYSTEM QRS Duration 72 ms MUSE SYSTEM Q-T Interval 392 ms MUSE SYSTEM QTC Calculated (Bezet) 455 ms MUSE SYSTEM Calculated P Townsend 79 degrees MUSE SYSTEM Calculated R Townsend 2 degrees MUSE SYSTEM Calculated T Townsend 80 degrees MUSE SYSTEM INTERPRETATION Normal sinus rhythm Normal ECG No previous ECGs available Confirmed by MD Cornelia, Heidi ([id number]) on 09/23/2019 9:48:37 PM MUSE SYSTEM 09/22/2019 4:05 PM EDT 09/23/2019 9:48 PM EDT Federico Horne MD ECG ORDERABLES MUSE SYSTEM documented in this encounter Visit Diagnoses Diagnosis Encounter to establish care- Primary Other reasons for seeking consultation Pericardial effusion (noninflammatory) documented in this encounter Care Teams Ultrasound Spec Relationship Specialty Start Date End Date Lisa Zacarias APRN PCP - General Family Medicine 01/08/19 documented as of this encounter
--- OUTSIDE RECORDS SUMMARY | 2024-02-04 18:38 | XMS_ITS | Encounter Summary ---
Author Organization [facility] [place] [address] Care Team Providers Care Chief Of Service Name Role Phone Lisa Zacarias APRN Primary Care Provider [phone] Encounter Details Date Type Department Care Team (Late st Contact Info) Description 04/05/2020 Orders Only Hematology [place] [address] Giuseppe Shaw MD [facility] [address] [place] [address] Malignant neoplasm of upper-outer quadrant of left breast in female, estrogen receptor positive Social History Tobacco Use Types Packs/Day Years [...] AM EDT Office Visit [place] [address] Roddy Olson MD [facility] [place] [address] documented as of this encounter Visit Diagnoses Diagnosis Malignant neoplasm of upper-outer quadrant of left breast in female, estrogen receptor positive documented in this encounter Care Teams Chief Of Service Relationship Specialty Start Date End Date Lisa Zacarias APRN PCP - General Family Medicine 01/08/19 documented as of this encounter
--- OUTSIDE RECORDS SUMMARY | 2024-02-04 18:38 | XMS_ITS | Encounter Summary ---
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 Procedures TC DENOSUMAB, 1MG, INJECTION PROLIA Giuseppe Shaw MD [facility] DR HEMATOLOGY [place] [address] Stj Hem Onc Infusion [address] [place] [id number] Referral ID Status Reason Start Date Expiration Date Visits Re quested Visits Authorized [id number] Closed 03/31/2021 03/31/2023 99 99 Encounter Details Date Type Department Care Team (Late st Contact Info) Description 03/25/2020 9:00 AM EDT Infusion Hematology Oncology at [address] [address] Malignant neoplasm of upper-outer quadrant of left breast in female, estrogen receptor positive; Osteopenia, 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; 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 Social History [...] Sign Reading Time Taken Comments Blood Pressure 123/67 03/25/2020 9:42 AM EDT Pulse 83 03/25/2020 9:42 AM EDT Temperature 36.9 ??C (98.4 ??F) 03/25/2020 9:42 AM ED T Respiratory Rate 18 03/25/2020 9:42 AM EDT Oxygen Saturation 99% 03/25/2020 9:42 AM EDT Inhaled Oxygen Concentration - - Weight 96.3 kg (212 lb 6.4 oz) 03/25/2020 9:42 A M EDT Height 167.6 cm (5' 6) 03/25/2020 9:42 AM EDT Body Mass Index 34.28 03/25/2020 9:42 AM EDT documented in this encounter Progress Notes * Aleisha Landis RN - 03/25/2020 9:00 AM EDT Infusion Note Diagnosis: Breast cancer Treatment: Prolia Injection Prolia 60 mg injected in left arm. Kelley was given printed information on Prolia. Patient aware to call clinic with any questions or concerns. Plan: Return to clinic as scheduled with labs prior to that visit. documented in this encounter Plan of Treatment Upcoming Encounters Date Type Department Care Team (Late st Contact Info) Description 12/04/2024 11:00 AM EDT Office Visit [place] [address] Roddy Olson MD [facility] [place] [address] documented as of this encounter Visit Diagnoses Diagnosis Malignant neoplasm of upper-outer quadrant of left breast in female, estrogen receptor positive Osteopenia, 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 alf current use of aromatase inhibitor Use of aromatase inhibitors documented in this encounter Administered Medications Inactive Administered Medications - up to 3 most recent administrations Medication Order MAR Action Action Date Dose Rate Site denosumab (PROLIA) 60 mg/mL subcutaneous injection 60 mg 60 mg, Subcutaneous, ONCE, 1 dose, On Jayshree 03/25/20 at 1145, Bring to room temperature 15-30 mins before administration. Monitor patients with severe impairment (CRCL less than 30 mL/minute or on dialysis) due to increased risk of hypocalcemia., Restricted to outpatient use. Requires P&T approval for inpatient use. Use in outpatient setting Given 03/25/2020 11:43 AM EDT 60 mg Left Arm documented in this encounter Care Teams Chief Compliance Officer Relationship Specialty Start Date End Date Lisa Zacarias APRN PCP - General Family Medicine 01/08/19 documented as of this encounter
--- OUTSIDE RECORDS SUMMARY | 2024-02-04 18:38 | XMS_ITS | Encounter Summary ---
Author Organization [facility] Address [facility] [place] [address] Care Team Providers Care Resource Recovery Engineer Name Role Phone Lisa Zacarias BAUTISTA Primary Care Provider [phone] Encounter Details Date Type Department Care Team (Late st Contact Info) Description 03/11/2020 2:00 PM EDT Office Visit Hematology/Oncology at [address] [phone] Giuseppe Shaw MD [facility] DR HEMATOLOGY [place] [address] Elvia Nelson APRN [address] [place] [address] DR HEMATOLOGY ONCOLOGY [place], [place] [id number] Malignant neoplasm of upper-outer quadrant of left breast in female, estrogen receptor positive; Osteopenia, 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; nursing home current use of aromatase inhibitor Social History [...] Sign Reading Time Taken Comments Blood Pressure 133/66 03/11/2020 1:55 PM EDT Pulse 89 03/11/2020 1:55 PM EDT Temperature 36.1 ??C (97 ??F) 03/11/2020 1:55 PM EDT Respiratory Rate 20 03/11/2020 1:55 PM EDT Oxygen Saturation 97% 03/11/2020 1:55 PM EDT Inhaled Oxygen Concentration - - Weight 96.2 kg (212 lb) 03/11/2020 1:55 PM EDT Height 167.6 cm (5' 6) 03/11/2020 1:55 PM EDT Body Mass Index 34.22 03/11/2020 1:55 PM EDT documented in this encounter Progress Notes * Giuseppe Shaw MD - 03/11/2020 2:00 PM EDT Subjective: Patient ID: Kelley Jensen is a 64 y.o. female. HPI Left breast cancer diagnosed 02/13 Mammographically detected Needle biopsy showed intraductal carcinoma, low-grade ER positive, VA positive, HER-2 negative Partial mastectomy and biopsy of left axillary node 02/13 0.7 cm primary, positive margin requiring reexcision to negative margin 1/3 lymph nodes positive Adjuvant AC/Taxol 03/16-08/17 Radiation therapy completed 10/15 Start Arimidex 11/14 DEXA scan 03/19 showed osteopenia left forearm and L-spine I am meeting the patient for the first time in the [facility]. She has a history of left breast cancer. I believe the above summary captures her details. Clinically she has been well. She is tolerating the Arimidex without difficulty. She has not had any hot flashes. She was unaware that she had osteopenia on her DEXA scan from about 2 years ago. She is also unaware that Arimidex can increase the rate of bone loss. Review of Systems Constitutional: Negative for fatigue, fever and unexpected weight change. HENT: Negative for nosebleeds. Respiratory: Negative for cough and shortness of breath. Cardiovascular: Negative for chest pain and palpitations. Gastrointestinal: Negative for abdominal pain and diarrhea. Musculoskeletal: Negative for back pain. Skin: Negative for rash. Neurological: Negative for speech difficulty. Hematological: Negative for adenopathy. Does not bruise/bleed easily. All other systems reviewed and are negative. Objective: Physical Exam Constitutional: General: She is not in acute distress. HENT: Mouth/Throat: Pharynx: No oropharyngeal exudate. Eyes: General: No scleral icterus. Cardiovascular: Rate and Rhythm: Normal rate and regular rhythm. Heart sounds: Normal heart sounds. Pulmonary: Effort: Pulmonary effort is normal. Breath sounds: Normal breath sounds. No wheezing. Abdominal: General: Bowel sounds are normal. Palpations: Abdomen is soft. There is no mass. Tenderness: There is no abdominal tenderness. Lymphadenopathy: Cervical: No cervical adenopathy. Skin: Findings: No rash. Neurological: Mental Status: She is alert and oriented to person, place, and time. Breasts bilaterally without masses, no axillary adenopathy Assessment and Plan: 64-year-old female with a history of a T1N1 left-sided breast cancer that was ER positive. She underwent adjuvant chemotherapy after her partial mastectomy and then completed radiation therapy. She has been on Arimidex now for over 4 years. There are no signs of local or systemic recurrence. A DEXA scan a couple years ago did show osteopenia. This would make her a candidate for Prolia for osteoporosis prevention in patients on aromatase inhibitors. We discussed this. She has no dental problems. She would be willing to start this. We did discuss osteonecrosis of the jaw. We will schedule her to return to our clinic in a few weeks with a chemistry panel and then to get her first dose of Prolia. We also discussed duration of hormonal therapy. She was told she would be on it for 15 years. I suggested a shorter course might be appropriate for her. We did use the STS 5 calculator which suggested she was at low risk for recurrence after 5 years and that 5 years of hormonal therapy may be appropriate. We did recommend that she continue her Arimidex for the time being as we start her Prolia. I will plan to see her back in 6 or 7 months to see how she is doing. 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
--- OUTSIDE RECORDS SUMMARY | 2024-02-04 18:38 | XMS_ITS | Encounter Summary ---
Author Organization [facility] Address [facility] [place] [address] Care Team Providers Care Glass Handler Name Role Phone Lisa Zacarias APRN Primary Care Provider [phone] Reason for Visit * Auth/Cert Specialty Diagnoses / Procedures Referred By Saad escobar Referred To Contact Diagnoses Hx of colonic polyps 5 yr f/u polyps (from 08/10/2016) Procedures PRO COLONOSCOPY, DIAGNOSTIC PRO COLONOSCOPY, BIOPSY PRO COLONOSCOPY, REMV LESN, SNARE COLONOSCOPY, DIAGNOSTIC Referral ID Status Reason Start Date Expiration Date Visits Re quested Visits Authorized [id number] 1 Encounter Details Date Type Department Care Team (Late st Contact Info) Description 11/10/2021 9:12 AM EDT - 11/10/2021 12:27 PM EDT Hospital [place] [address] Lokesh Sheriff MD [facility] [address] Discharge Disposition: Home Social History Tobacco Use [...] Sign Reading Time Taken Comments Blood Pressure 173/89 11/10/2021 12:10 PM EDT Pulse 72 11/10/2021 11:40 AM EDT Temperature 36.6 ??C (97.9 ??F) 11/10/2021 9:26 AM ED T Respiratory Rate 16 11/10/2021 12:10 PM EDT Oxygen Saturation 98% 11/10/2021 12:10 PM EDT Inhaled Oxygen Concentration - - Weight 97.5 kg (215 lb) 11/10/2021 9:26 AM EDT Height 168 cm (5' 6.14) 11/10/2021 9:26 AM EDT Body Mass Index 34.55 11/10/2021 9:26 AM EDT documented in this encounter Discharge Instructions * Discharge Instructions* Erlinda Watts RN - 11/10/2021 11:59 AM EDT Colonoscopy: What to Expect at Home Your Recovery Your doctor will talk to you about when you will need your next colonoscopy. Your doctor can help you decide how often you need to be checked. This will depend on the results of your test and your risk for colorectal cancer. After the test, you may be bloated or have gas pains. You may need to pass gas. If a biopsy was done or a polyp was removed, you may have streaks of blood in your stool (feces) for a few days. Problems such as heavy rectal bleeding may not occur until several weeks after the test. This isn't common. But it can happen after polyps are removed. This care sheet gives you a general idea about how long it will take for you to recover. But each person recovers at a different pace. Follow the steps below to get better as quickly as possible. How can you care for yourself at home? Activity Rest when you feel tired. You can do your normal activities when it feels okay to do so. Diet Follow your doctor's directions for eating. Unless your doctor has told you not to, drink plenty of fluids. This helps to replace the fluids that were lost during the colon prep. Do not drink alcohol. Medicines Your doctor will tell you if and when you can restart your medicines. He or she will also give you instructions about taking any new medicines. If you take blood thinners, such as warfarin (Coumadin), clopidogrel (Plavix), or aspirin, be sure to talk to your doctor. He or she will tell you if and when to start taking those medicines again. Make sure that you understand exactly what your doctor wants you to do. If polyps were removed or a biopsy was done during the test, your doctor may tell you not to take aspirin or other anti-inflammatory medicines for a few days. These include ibuprofen (Advil, Motrin) and naproxen (Aleve). Other instructions For your safety, do not drive or operate machinery until the medicine wears off and you can think clearly. Your doctor may tell you not to drive or operate machinery until the day after your test. Do not sign legal documents or make major decisions until the medicine wears off and you can think clearly. The anesthesia can make it hard for you to fully understand what you are agreeing to. Additional Information for Sedation Patients For patients who received sedation: You may have received medications before and/or during your procedure which effects your judgement and reaction time. Do not drive, operate machinery, drink alcoholic beverages or make important decisions for 24 hours. Be careful on stairs as you may be unsteady on your feet. You may eat a regular diet as tolerated. Do not smoke if you are alone. IV site: Slight redness or tenderness is normal, you can use a warm compress if you would like. If tenderness and/or redness increase or if foul drainage occurs, please contact your Doctor. Please call [phone] before 8pm Mon-Fri with problems, questions or concerns. If you call after 8pm or on weekends, call the Hospital at [phone] and ask to speak to the Convenience Store Clerk television repairman and the nuclear plant operator will contact that person for you. When should you call for help? Call [phone] anytime you think you may need emergency care. For example, call if: You passed out (lost consciousness). You pass maroon or bloody stools. You have trouble breathing. Call your doctor now or seek immediate medical care if: You have pain that does not get better after you take pain medicine. You are sick to your stomach or cannot drink fluids. You have new or worse belly pain. You have blood in your stools. You have a fever. You cannot pass stools or gas. Watch closely for changes in your health, and be sure to contact your doctor if you have any problems. Where can you learn more? [facility] View your After Visit Summary and more online at [email or web address] If you would like to provide feedback about your hospital experience, please call the Office of Patient and Family Relations at . If you have received this After Visit Summary in error, please immediately return it in person to the department, or notify the [facility] Privacy Office by calling toll free at between the hours of 8AM and 5PM to arrange for our retrieval of the documents at no cost to you. Content Version: 12.2 ?? [id number] [employer]. Care instructions adapted under license by [email or web address]. If you have questions about a medical condition or this instruction, always ask your healthcare professional. [employer] disclaims any warranty or liability for your use of this information. documented in this encounter Medications at Time of Discharge Medication Sig Dispensed Refills Start Date End Date Calcium Carbonate 600 mg calcium (1,500 mg) Tablet Take 600 mg by mouth daily. 07/26/2021 cholecalciferol (Vitamin D3) 1,000 unit Tablet Take [...] Use with spacer citalopram (CELEXA) 20 mg TabletIndications:Malign ant neoplasm of left female breast, unspecified site of breast Take 1 tablet by mouth daily. 60 tablet 6 12/07/2016 ibuprofen (ADVIL;MOTRIN) 600 mg Tablet Take 1 tablet by mouth every 6 hours as needed for Pain. 40 tablet 11/17/2015 levothyroxine (SYNTHROID) 25 mcg Tablet Take by mouth daily. 0 01/15/2015 nicotine (Nicoderm CQ) 14 mg/24 hr Patch 24 hr Change 1 patch on the skin every 24 hours. 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 90 tablet 2 04/05/2020 loratadine (CLARITIN) 10 mg Tablet Take 10 mg by mouth daily. Reported on 06/12/2016 documented as of this encounter Progress Notes * Yulia Lujan - 09/20/2021 8:41 AM EDT Kelley Jensen [id number] Diagnosis/Indication: 5 yr f/u polyps (from 08/10/2016) 1. Have you ever had a/an Colonoscopy before? Yes: Date 2016 If yes, did you have any problems with the procedure? No What type of sedation was used: IV Conscious Sedation 2. Do you take any blood thinners or have you been diagnosed with a bleeding disorder that increases your risk of bleeding with procedures? No 3. Do you have a Pacemaker or Defibrillator device? No 4. Are you a diabetic? No 5. Do you have any Allergies to Eggs, Latex or Medications? Yes: EDH 6. Do you take any Oral Iron Supplements (Including multi-vitamins)? No 7. Do you have a history of three or more abdominal surgeries? No 8. Have you had a problem with sedation or anesthesia? No 9. Do you use a c-pap machine or oxygen tank? Neither 10. Do you take prescription narcotic pain medications, including suboxone or methodone? No 11. Do you have a preference regarding the gender of your provider? No Preference 12. Is there any other information you would like to us to note for the provider and nursing team who will perform your case? No 13. Say to patient: You must have a responsible alliance party who will drive you to your procedure, stay [place] for the entire duration of your procedure, and drive you home from your procedure? *Please Verify the height and weight, and adjust if height and/or weight have changed* Estimated body mass index is 34.15 kg/m?? as calculated from the following: Height as of 03/31/21: 169 cm (5' 6.54). Weight as of 03/31/21: 97.5 kg (215 lb). Age:66 y.o. documented in this encounter H&P Notes * Lokesh Sheriff MD - 11/10/2021 10:06 AM EDT Patient Name: Kelley Jensen Patient Age: 66 y.o. Birthdate: 1955 Admit date: 11/10/2021 Attending Physician: Lokesh Sheriff MD Gastroenterology & Hepatology Pre-Procedure History and Physical Planned Procedure: Colonoscopy: Indication: screening/surveillance Patient Active Problem List Diagnosis Code ??? Dietary counseling and surveillance Z71.3 ??? Malignant neoplasm of upper-outer quadrant of left female breast C50.412 ??? Abnormal ultrasound of endometrium R93.5 ??? Obesity E66.9 ??? Abnormal endometrial ultrasound R93.5 ??? Former smoker Z87.891 ??? COPD (chronic obstructive pulmonary disease) J44.9 ??? Malignant neoplasm of upper-outer quadrant of left breast in female, estrogen receptor obdsrudpY68.412, Z17.0 ??? Osteopenia M85.80 ??? 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 No changes Exam: Patient Vitals for the past 24 hrs: Temp Pulse Resp BP SpO2 O2 Device 11/10/21 0926 36.6 ??C (97.9 ??F) 73 17 148/84 98 % RA GEN: NAD, AAOX3 HEENT: NC/AT dryMM, anicteric Chest: CTAB Heart: RRR, nl s1, s2 Abdomen: normal bowel sounds, soft, non tender Assessment and Plan: Proceed with Colonoscopy: ASA Grade: ASA 2 - Patient with mild systemic disease with no functional limitations Mallampati: II (soft palate, uvula, fauces visible) Sedation plan: IV Conscious Sedation Risks and benefits of the procedure were discussed with the patient. Risks discussed including bleeding, infection, reaction to anesthesia, perforation or other intraabdominal trauma, pancreatitis (if applicable), missing a cancer (if applicable) and/or other unforseen complication. Informed Consent signed by patient (or architectural representative). documented in this encounter Plan of Treatment Upcoming Encounters Date Type Department Care Team (Late st Contact Info) Description 12/04/2024 11:00 AM EDT Office [place] [address] Roddy Olson MD [facility] [place] [address] documented as of this encounter Procedures Procedure Name Priority Date/Time Associated Diagnosis Comments SPECIMEN TO PATHOLOGY Routine 11/10/2021 12:02 PM EDT SPECIMEN TO PATHOLOGY Routine 11/10/2021 11:51 AM EDT SPECIMEN TO PATHOLOGY Routine 11/10/2021 11:51 AM EDT SPECIMEN TO PATHOLOGY Routine 11/10/2021 11:51 AM EDT SURGICAL PATHOLOGY REPORT Routine 11/10/2021 11:33 AM EDT COLONOSCOPY Routine 11/10/2021 10:40 AM EDT Colonoscopy, Pallavi Raymond ([id number]) 11/10/2021 10:39 AM EDT 5 yr f/u polyps (from 08/10/2016) documented in this encounter Results * Specimen to Pathology (11/10/2021 12:02 PM EDT) AP Specimen 11/10/2021 12:0 2 PM EDT 11/10/2021 12:02 PM EDT Narrative [facility] - 11/10/2021 12:02 PM EDT Specimen requisition ordered. ??Separate Pathology report to follow Lokesh Sheriff MD PATHOLOGY/CYTOLOG Y ORDERABLES Performing Organization Address [facility]/[place] [address] * Specimen to Pathology (11/10/2021 11:51 AM EDT) AP Specimen 11/10/2021 11:5 1 AM EDT 11/10/2021 11:51 AM EDT [facility] - 11/10/2021 11:51 AM EDT Specimen requisition ordered. ??Separate Pathology report to follow Lokesh Sheriff MD PATHOLOGY/CYTOLOG Y ORDERABLES Performing Organization Address [facility]/[place] [address] * Specimen to Pathology (11/10/2021 11:51 AM EDT) AP Specimen 11/10/2021 11:5 1 AM EDT 11/10/2021 11:51 AM EDT [facility] - 11/10/2021 11:51 AM EDT Specimen requisition ordered. ??Separate Pathology report to follow Lokesh Sheriff MD PATHOLOGY/CYTOLOG Y ORDERABLES Performing Organization Address [facility]/[place] [address] * Specimen to Pathology (11/10/2021 11:51 AM EDT) AP Specimen 11/10/2021 11:5 1 AM EDT 11/10/2021 11:51 AM EDT [facility] - 11/10/2021 11:51 AM EDT Specimen requisition ordered. ??Separate Pathology report to follow Lokesh Sheriff MD PATHOLOGY/CYTOLOG Y ORDERABLES [facility] [place] [address] * Surgical Pathology Report (11/10/2021 11:33 AM EDT) Final Diagnosis [id number] ? Location: 4T; EA07; A The signing pathologist has (i) examined the relevant preparation(s) for the specimen(s) and (ii) rendered or confirmed the diagnosis(es). . ?Surgical Pathology DIAGNOSIS A - Ascending colon polyp, resection: - ??Tubular adenoma(s) (multiple fragments). B - Hepatic flexure polyp, resection: - ??Tubular adenoma (multiple fragments). C - Rectosigmoid colon polyp, resection: - ??Hyperplastic polyp. Electronically signed by: ?Danna Muniz MD Verified: ??11/14/2021 17:28 ??Pathologist Performed at: [place] [place] [place], [place] SPECIMEN(S) SUBMITTED A - Ascending colon polyp, resection (2) B - Hepatic flexure polyp, resection (1) C - Rectosigmoid colon polyp, resection (3) CLINICAL INFORMATION 66-year-old female with colon polyps SPECIMEN PROCESSING A - Labeled/Fixative : Ascending colon polyps, formalin. Quantity/Size: Multiple, 0.1-0.5 cm. Tissue Description: Soft, yellow-plata to brown mucosal tissues. Sections/Process ing: Submitted en toto ??in 2 cassettes labeled A1-A2. B - Labeled/Fixative : Hepatic flexure polyp, formalin. Quantity/Size: Three, ranging 0.2-0.8 cm. Tissue Description: Flat, irregular yellow-plata and plata-brown mucosal tissues. Sections/Process ing: Submitted en toto ??in 1 cassette labeled B1. C - Labeled/Fixative : Rectosigmoid colon polyp, formalin. Quantity/Size: Three, averaging 0.3 cm. Tissue Description: Plata to plata-red polypoid mucosal tissues. Sections/Process ing: Submitted en toto ??in 1 cassette labeled C1. ??shb 11/14/2021 5:28 PM EDT [facility] GI Biopsy 11/10/2021 11:3 3 AM EDT 11/10/2021 11:33 AM EDT GI Biopsy 11/10/2021 11:3 3 AM EDT 11/10/2021 11:33 AM EDT GI Biopsy 11/10/2021 11:3 3 AM EDT 11/10/2021 11:33 AM EDT GI Biopsy 11/10/2021 11:3 3 AM EDT 11/10/2021 11:33 AM EDT Lokesh Sheriff MD PATHOLOGY/CYTOLOG Y ORDERABLES [facility] [place] [address] * COLONOSCOPY (11/10/2021 10:40 AM EDT) COLONOSCOPY [facility] Endoscopy ___ Procedure Date: 11/10/2021 10:40 AM ? Patient Name: Kelley Jensen ? Date of : 1955 ? Age: 66 ? Order #: [id number] ? Instrument Name: [id number] ? ___ Procedure: ? Colonoscopy Indications: ? High risk colon cancer ? surveillance: Personal history of ? colonic polyps Patient Profile: ? This is a 66 year old female. Refer ? to note in patient chart for ? documentation of history and ? physical. Providers: ? Lokesh Sheriff MD, Leta Roblero ? Nile Castellanos Referring : ?Lisa Zacarias Medicines: ? Midazolam 8 mg IV, Fentanyl [...] Zacarias APRN GENERAL SURGICAL ORD ERABLES [employer] documented in this encounter Visit Diagnoses Not on filedocumented in this encounter Administered Medications Inactive Administered Medications - up to 3 most recent administrations Medication Order MAR Action Action Date Dose Rate Site lactated ringers infusion 100 mL/hr, Intravenous, CONTINUOUS, Starting on Jayshree 11/10/21 at 0945, Until Jayshree 11/10/21 at 1206, Endoscopy (Day of Procedure) New Bag 11/10/2021 9:38 AM EDT 100 mL/hr 100 mL/hr documented in this encounter Active and Recently Administered Medications Times are shown in EDT. Continuous Medication Order 11/08/2021 11/09/2021 11/10/2021 lactated ringers infusion (CANCELED) 100 mL/hr, Intravenous, CONTINUOUS, Starting on Jayshree 11/10/21 at 0945, Until Jayshree 11/10/21 at 1206, Endoscopy (Day of Procedure) 0938 (New Bag - Prov ider: Carolyn Prado RN) PRN Medication Order 11/08/2021 11/09/2021 11/10/2021 diphenhydrAMINE (Benadryl) (50 mg/mL) injection (CANCELED) ONCE PRN, Starting on Jayshree 11/10/21 at 1044, Until Jayshree 11/10/21 at 1427, Intra-Operative (Intra-Procedure), Routine 1044 (Given - Provid er: Leta Castellanos RN) fentaNYL (pf) (50 mcg/mL) multi-dose injection (CANCELED) ONCE PRN, Starting on Jayshree 11/10/21 at 1044, Until Jayshree 11/10/21 at 1427, Intra-Operative (Intra-Procedure), Routine 1044 (Given - Provid er: Leta Castellanos RN)1047 (Given - Provider: Leta Castellanos RN)1054 (Given - Provider: Leta Castellanos RN)1058 (Given - Provider: Leta Castellanos RN)1105 (Given - Provider: Leta Castellanos RN)1109 (Given - Provider: Leta Castellanos RN)1117 (Given - Provider: Leta Castellanos RN)1129 (Given - Provider: Leta Castellanos RN)1144 (Given - Provider: Leta Castellanos RN) midazolam (pf) (Versed) (1 mg/mL) multi-dose injection (CANCELED) ONCE PRN, Starting on Jayshree 11/10/21 at 1044, Until Jayshree 11/10/21 at 1427, Intra-Operative (Intra-Procedure), Routine 1044 (Given - Provid er: Leta Castellanos RN)1047 (Given - Provider: Leta Castellanos RN)1051 (Given - Provider: Leta Castellanos RN)1058 (Given - Provider: Leta Castellanos RN)1103 (Given - Provider: Leta Castellanos RN)1106 (Given - Provider: Leta Castellanos RN)1109 (Given - Provider: Leta Castellanos RN)1114 (Given - Provider: Leta Castellanos RN)1118 (Given - Provider: Leta Castellanos RN)1122 (Given - Provider: Leta Castellanos RN)1129 (Given - Provider: Leta Castellanos RN)1144 (Given - Provider: Leta Castellanos RN) documented in this encounter Care Teams Glass Handler Relationship Specialty Start Date End Date Lisa Zacarias APRN PCP - General Family Medicine 01/08/19 documented as of this encounter
--- OUTSIDE RECORDS SUMMARY | 2024-02-04 18:38 | XMS_ITS | Encounter Summary ---
Author Organization [facility] [place] [address] Care Team Providers Care Culture Media Laboratory Assistant Name Role Phone Lisa Zacarias BAUTISTA Primary Care Provider [phone] Reason for Visit * Reason Onset Date Comments Prior Authorization 02/17/2022 Encounter Details Date Type Department Care Team (Late st Contact Info) Description 02/17/2022 Telephone [place] [id number] Fior Block Prior Authorization Social History Tobacco Use Types Packs/Day Years [...] Telephone Encounter - Phoenix Solorzano RN - 05/12/2022 2:58 PM EST Placed call to [facility]. They can do this. They said in the future a therapy plan can be ordered like we did. Then we can call them to ask them to try to schedule. They need us to do this as it is more of a one time thing than an ongoing thing. * Telephone Encounter - Phoenix Solorzano RN - 04/17/2022 8:11 AM EDT Images from the original note were not included. April 12, 2022 France Lopez MD to Me 4:53 PM Ordered, also needs Ca and creatinine done before (also ordered) * Telephone Encounter - Phoenix Solorzano RN - 04/12/2022 3:48 PM EDT Patient left voicemail she would like to have this done at the location in [facility]. She hopes we can send orders there. * Telephone Encounter - Phoenix Solorzano RN - 04/12/2022 3:25 PM EDT Patient notified by voicemail that her order for Reclast was sent. * Telephone Encounter - Fior Block - 04/12/2022 10:27 AM EDT [employer] [place] returned a call stating no PA is required * Telephone Encounter - Fior Block - 02/17/2022 10:54 AM EDT Previous Medications Tried Medication: Prolia * Telephone Encounter - Fior Block - 02/17/2022 10:52 AM EDT Medication Prior Authorization Jessica Medication name/dose/directions: Reclast 5mg/100mL - once yearly ([facility]) Rationale for request: Osteoporosis Health plan: [employer] (Fax) Authorizing bilingual call center representative name: Karen Sent to health plan on: 02/17/22 Health plan decision: Quantity approved: Authorization number: Start date: End date: documented in this encounter Plan of Treatment Upcoming Encounters Date Type Department Care Team (Late st Contact Info) Description 12/04/2024 11:00 AM EDT Office Visit [place] [address] Roddy Olson MD [facility] DR [place] [address] documented as of this encounter Visit Diagnoses Not on filedocumented in this encounter Care Teams Culture Media Laboratory Assistant Relationship Specialty Start Date End Date Lisa Zacarias APRN PCP - General Family Medicine 01/08/19 documented as of this encounter
--- OUTSIDE RECORDS SUMMARY | 2024-02-04 18:38 | XMS_ITS | Encounter Summary ---
Author Organization [facility] [place] [address] Care Team Providers Care Pigment And Lacquer Mixer Name Role Phone Lisa Zacarias TECHNICAL ADMINISTRATIVE ASSISTANT Primary Care Provider [phone] Encounter Details Date Type Department Care Team (Late st Contact Info) Description 01/30/2022 Ancillary Procedure [place] [address] Lisa Zacarias, TECHNICAL ADMINISTRATIVE ASSISTANT [address] [place] [address] Social History Tobacco Use Types [...] AM EDT Office Visit [place] [address] Roddy Olson MD [facility] DR [place]ACIC [place] [address] documented as of this encounter Procedures Procedure Name Priority Date/Time Associated Diagnosis Comments FILM LIBRARY STORAGE ONLY CT CHEST Routine 01/30/2022 12:00 AM EDT documented in this encounter Results * Film Library- Storage Only CT Chest (01/30/2022 12:00 AM EDT) Narrative [facility] - 02/21/2023 9:18 PM EDT This exam is auto-finalizing. It's purpose is for storage only. Lisa Zacarias APRN [employer] FILM LIBRARY ORD ERABLES [place], [place] documented in this encounter Visit Diagnoses Not on filedocumented in this encounter Care Teams Pigment And Lacquer Mixer Relationship Specialty Start Date End Date Lisa Zacarias APRN PCP - General Family Medicine 01/08/19 documented as of this encounter
--- OUTSIDE RECORDS SUMMARY | 2024-02-04 18:38 | XMS_ITS | Encounter Summary ---
Author Organization [facility] [place] [address] Care Team Providers Care Timber Cutter Name Role Phone Lisa Zacarias MANAGER OF INTERNAL AUDIT Primary Care Provider [phone] Encounter Details Date Type Department Care Team (Late st Contact Info) Description 03/24/2021 Ancillary Procedure [place] [address] Lisa Zacarias, MANAGER OF INTERNAL AUDIT [address] [place] [address] Social History Tobacco Use Types [...] AM EDT Office [place] [address] Roddy Olson MD [facility] DR THORACIC [place] [address] documented as of this encounter Procedures Procedure Name Priority Date/Time Associated Diagnosis Comments FILM LIBRARY- STORAGE ONLY DXA IMAGES Routine 03/24/2021 12:00 AM EDT documented in this encounter Results * Film Library- Storage Only DXA Images (03/24/2021 12:00 AM EDT) Narrative [facility] - 03/25/2021 8:26 AM EDT This exam is auto-finalizing. It's purpose is for storage only. Lisa Zacarias APRN IMShruthi FILM LIBRARY ORD ERABLES [place], [place] documented in this encounter Visit Diagnoses Not on filedocumented in this encounter Care Teams Timber Cutter Relationship Specialty Start Date End Date Lisa Zacarias APRN PCP - General Family Medicine 01/08/19 documented as of this encounter
--- OUTSIDE RECORDS SUMMARY | 2024-02-04 18:38 | XMS_ITS | Encounter Summary ---
Author Organization [facility] Address [facility] [place] [address] Care Team Providers Care Distillery Worker Name Role Phone Lisa Zacarias APRN Primary Care Provider [phone] Reason for Visit * Auth/Cert Specialty Diagnoses / Procedures Referred By Saad escobar Referred To Contact Diagnoses Hx of colonic polyps 5 yr f/u polyps (from 08/10/2016) Procedures PRO COLONOSCOPY, DIAGNOSTIC PRO COLONOSCOPY, BIOPSY PRO COLONOSCOPY, REMV LESN, SNARE COLONOSCOPY, DIAGNOSTIC Referral ID Status Reason Start Date Expiration Date Visits Re quested Visits Authorized [id number] 1 1 Encounter Details Date Type Department Care Team (Late st Contact Info) Description 11/10/2021 10:15 AM EDT - 11/10/2021 11:00 AM EDT Surgery [place] [address] Lokesh Sheriff MD [facility] [place] [address] COLONOSCOPY, POLYPECTOMY, REMOVAL LESION BY SNARE (WRVU 4.57) Social History Tobacco Use Types Packs/Day Years [...] Sign Reading Time Taken Comments Blood Pressure 100/65 11/10/2021 10:50 AM EDT Pulse 64 11/10/2021 10:50 AM EDT Temperature 36.6 ??C (97.9 ??F) 11/10/2021 9:26 AM ED T Respiratory Rate 14 11/10/2021 10:50 AM EDT Oxygen Saturation 100% 11/10/2021 10:50 AM EDT Inhaled Oxygen Concentration - - [...] occurs, please contact your Doctor. Please call [phone] before 8pm Mon-Fri with problems, questions or concerns. If you call after 8pm or on weekends, call the Hospital at [phone] and ask to speak to the Accounting Administrative Assistant plant floor automation manager and the filtration plant operator will contact that person for you. When should you call for help? Call [phone] anytime you think you may need emergency [...] any problems. Where can you learn more? [facility] View your After Visit Summary and more online at [email or web address] If you would like to provide feedback about your hospital experience, please call the Office of Patient and Family Relations at . If you have received this After Visit Summary in error, please immediately return it in person to the department, or notify the [facility] Privacy Office by calling toll free at between the hours of 8AM and 5PM to arrange for our retrieval of the documents at no cost to you. Content Version: 12.2 ?? [phone] [employer]. Care instructions adapted under license by [facility]. If you have questions about a medical condition or this instruction, always ask your healthcare professional. [employer] disclaims any warranty or liability for your [...] - 09/20/2021 8:41 AM EDT Kelley Jensen [id number] Diagnosis/Indication: 5 yr f/u polyps (from 08/10/2016) [...] to patient: You must have a responsible green party who will drive you to your [...] of left breast in female, estrogen receptor cyfxfxldE45.412, Z17.0 ??? Osteopenia M85.80 ??? group home current use of aromatase inhibitor Z79.811 Medications: [...] complication. Informed Consent signed by patient (or signs sales representative). documented in this encounter Plan of Treatment Upcoming Encounters Date Type Department Care Team (Late st Contact Info) Description 12/04/2024 11:00 AM EDT Office [place] [address] Roddy Olson MD [facility] [place] [address] documented as of this encounter Procedures Procedure Name Priority Date/Time Associated Diagnosis Comments SPECIMEN TO PATHOLOGY Routine 11/10/2021 12:02 PM EDT SPECIMEN TO PATHOLOGY Routine 11/10/2021 11:51 AM EDT SPECIMEN TO PATHOLOGY Routine 11/10/2021 11:51 AM EDT SPECIMEN TO PATHOLOGY Routine 11/10/2021 11:51 AM EDT SURGICAL PATHOLOGY REPORT Routine 11/10/2021 11:33 AM EDT COLONOSCOPY Routine 11/10/2021 10:40 AM EDT Colonoscopy, Pallavi Raymond ([id number]) 11/10/2021 10:39 AM EDT 5 yr f/u polyps (from 08/10/2016) documented in this encounter Results * Specimen to Pathology (11/10/2021 12:02 PM EDT) AP Specimen 11/10/2021 12:0 2 PM EDT 11/10/2021 12:02 PM EDT [facility] LAB[facility] - 11/10/2021 12:02 PM EDT Specimen requisition ordered. ??Separate Pathology report to follow Lokesh Sheriff MD PATHOLOGY/[place] [address] * Specimen to Pathology (11/10/2021 11:51 AM EDT) AP Specimen 11/10/2021 11:5 1 AM EDT 11/10/2021 11:51 AM EDT [facility] - 11/10/2021 11:51 AM EDT Specimen requisition ordered. ??Separate Pathology report to follow Lokesh Sheriff MD PATHOLOGY/CYTOLOG Y ORDERABLES Performing Organization Address City/[facility]/[place] [address] * Specimen to Pathology (11/10/2021 11:51 AM EDT) AP Specimen 11/10/2021 11:5 1 AM EDT 11/10/2021 11:51 AM EDT [facility] LAB[facility] - 11/10/2021 11:51 AM EDT Specimen requisition ordered. ??Separate Pathology report to follow Lokesh Sheriff MD PATHOLOGY/CYTOLOG Y ORDERABLES Performing Organization Address City/[facility]/[place] [address] * Specimen to Pathology (11/10/2021 11:51 AM EDT) AP Specimen 11/10/2021 11:5 1 AM EDT 11/10/2021 11:51 AM EDT [facility] LAB[facility] - 11/10/2021 11:51 AM EDT Specimen requisition ordered. ??Separate Pathology report to follow Lokesh Sheriff MD PATHOLOGY/CYTOLOG Y ORDERABLES [facility] [place] [address] * Surgical Pathology Report (11/10/2021 11:33 AM EDT) Final Diagnosis [id number] ? Location: 4T; EA07; A The signing [...] MD Verified: ??11/14/2021 17:28 ??Pathologist Performed at: ??-[facility] Dept. of Pathology, [place], [place] SPECIMEN(S) SUBMITTED A - Ascending colon [...] labeled C1. ??shb 11/14/2021 5:28 PM EDT [facility] GI Biopsy 11/10/2021 11:3 3 AM EDT 11/10/2021 11:33 AM EDT GI Biopsy 11/10/2021 11:3 3 AM EDT 11/10/2021 11:33 AM EDT GI Biopsy 11/10/2021 11:3 3 AM EDT 11/10/2021 11:33 AM EDT GI Biopsy 11/10/2021 11:3 3 AM EDT 11/10/2021 11:33 AM EDT Lokesh Sheriff MD PATHOLOGY/CYTOLOG Y ORDERABLES Performing Organization Address [facility]/State/ZIP Co de Phone Number [facility] [place] [address] * COLONOSCOPY (11/10/2021 10:40 AM EDT) COLONOSCOPY [facility] Endoscopy ___ Procedure Date: 11/10/2021 10:40 AM ? Patient Name: Kelley Jensen ? Date of : 1955 ? Age: 66 ? Order #: [id number] ? Instrument Name: [id number] ? ___ Procedure: ? Colonoscopy Indications: ? High risk colon cancer ? surveillance: Personal history of ? colonic polyps Patient Profile: ? This is a 66 year old female. Refer ? to note in patient chart for ? documentation of history and ? physical. Providers: ? Lokesh Sheriff MD, Leta Roblero ? Nile Castellanos Referring : ?Lias Zacarias Medicines: ? Midazolam 8 mg IV, [...] 11/10/2021 10:4 0 AM EDT Lisa Zacarias MANAGER BUDGET GENERAL SURGICAL ORD ERABLES [employer] documented in this encounter Visit Diagnoses Not on filedocumented in this encounter Administered Medications Inactive Administered Medications - up to 3 most recent administrations Medication Order MAR Action Action Date Dose Rate Site diphenhydrAMINE (Benadryl) (50 mg/mL) injection ONCE PRN, Starting on Jayshree 11/10/21 at 1044, Until Jayshree 11/10/21 at 1427, Intra-Operative (Intra-Procedure), Routine Given 11/10/2021 10:44 AM EDT 25 mg fentaNYL (pf) (50 mcg/mL) multi-dose injection ONCE PRN, Starting on Jayshree 11/10/21 at 1044, Until Jayshree 11/10/21 at 1427, Intra-Operative (Intra-Procedure), Routine Given 11/10/2021 11:44 AM EDT 25 mcg Given 11/10/2021 11:29 AM EDT 25 mcg Given 11/10/2021 11:17 AM EDT 25 mcg lactated ringers infusion 100 mL/hr, Intravenous, CONTINUOUS, Starting on Jayshree 11/10/21 at 0945, Until Jayshree 11/10/21 at 1206, Endoscopy (Day of Procedure) New Bag 11/10/2021 9:38 AM EDT 100 mL/hr 100 mL/hr midazolam (pf) (Versed) (1 mg/mL) multi-dose injection ONCE PRN, Starting on Jayshree 11/10/21 at 1044, Until Jayshree 11/10/21 at 1427, Intra-Operative (Intra-Procedure), Routine Given 11/10/2021 11:44 AM EDT 0.5 mg Given 11/10/2021 11:29 AM EDT 0.5 mg Given 11/10/2021 11:22 AM EDT 0.5 mg documented in this encounter Active and Recently [...] RN) documented in this encounter Care Teams Distillery Worker Relationship Specialty Start Date End Date Lisa Zacarias APRN PCP - General Family Medicine 01/08/19 documented as of this encounter
--- OUTSIDE RECORDS SUMMARY | 2024-02-04 18:38 | XMS_ITS | Encounter Summary ---
Author Organization [facility] [place] [address] Care Team Providers Care Automotive Electrician Helper Name Role Phone Lisa Zacarias BAUTISTA Primary Care Provider [phone] Reason for Referral * Diagnostic Test (Routine) - Closed Specialty Diagnoses / Procedures Referred By Contac t Referred To Contact Radiology Diagnoses Atypical chest pain HUYNH (dyspnea on exertion) Coronary artery calcification Procedures NM Exercise Stress CT Component Federico Horne MD [facility] [place] [address] [place] [address] Referral ID Status Reason Start Date Expiration Date V isits Requested Visits Authorized [id number] Closed Specialty Service Requested 11/19/2019 05/21/2021 1 1 Reason for Visit * Diagnostic Test (Routine) - Closed Specialty Diagnoses / Procedures Referred By Contac t Referred To Contact Radiology Diagnoses Atypical chest pain HUYNH (dyspnea on exertion) Coronary artery calcification Procedures NM Exercise Stress CT Component Federico Horne MD [facility] [place] [address] [place] [address] Referral ID Status Reason Start Date Expiration Date V isits Requested Visits Authorized [id number] Closed Specialty Service Requested 11/19/2019 05/21/2021 1 1 Encounter Details Date Type Department Care Team (Latest Contact Info) Description 11/28/2019 10:05 AM EDT Hospital Encounter [place] [address] Federico Horne MD [facility] [place] [address] Atypical chest pain; HUYNH (dyspnea [...] AM EDT Office [place] [address] Roddy Olson MD [facility] [place] [address] documented as of this encounter Procedures Procedure Name Priority Date/Time Associated Diagnosis Comments NM EXERCISE STRESS CT COMPONENT Routine 11/28/2019 12:04 PM EDT Atypical chest pain HUYNH (dyspnea on [...] calcification documented in this encounter Care Teams Automotive Electrician Helper Relationship Specialty Start Date End Date Lisa Zacarias APRN PCP - General Family Medicine 01/08/19 documented as of this encounter
--- OUTSIDE RECORDS SUMMARY | 2024-02-04 18:38 | XMS_ITS | Encounter Summary ---
Author Organization [facility] Address [facility] [place] [address] Care Team Providers Care Campaign Coordinator Name Role Phone Lisa Zacarias APRN Primary Care Provider [phone] Encounter Details Date Type Department Care Team (Latest Contact Info) Description 02/22/2023 Travel Social History Tobacco Use Types Packs/Day [...] AM EDT Office [place] [address] Roddy Olson MD [facility] [place] [address] documented as of this encounter Visit Diagnoses Not on filedocumented in this encounter Care Teams Campaign Coordinator Relationship Specialty Start Date End Date Lisa Zacarias APRN PCP - General Family Medicine 01/08/19 documented as of this encounter
--- OUTSIDE RECORDS SUMMARY | 2024-02-04 18:38 | XMS_ITS | Encounter Summary ---
Author Organization [facility] [place] [address] Care Team Providers Care Elder Counselor Name Role Phone Lisa Zacarias FINISH GRINDER Primary Care Provider [phone] Encounter Details Date Type Department Care Team (Late Contact Info) Description 03/24/2021 Telephone Hematology/Oncology at [address] [address] Giuseppe Shaw MD [facility] DR HEMATOLOGY [place] [address] Social History Tobacco Use Types Packs/Day Years [...] AM EDT Office [place] [address] Roddy Olson MD [facility] [place] [address] documented as of this encounter Visit Diagnoses Diagnosis Malignant neoplasm of upper-outer quadrant of left breast in female, estrogen receptor positive 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
--- OUTSIDE RECORDS SUMMARY | 2024-02-04 18:38 | XMS_ITS | Encounter Summary ---
[place] [address] Care Team Providers Care Equal Employment Opportunity Officer Name Role Phone Lisa Zacarias APRN Primary Care Provider [phone] Reason for Referral * Consultation (Routine) - Closed Specialty Diagnoses / Procedures Referred By Saad escobar Referred To Contact Thoracic Surgery Diagnoses Lung nodule Lung nodule Lisa Zacarias APRN [address] [place] [address] [facility] [address] [place] [phone] Referral ID Status Reason Start Date Expiration Date V isits Requested Visits Authorized [id number] Closed Consult, Test & Treat PCP Updated and/or Approved 02/12/2023 02/12/2024 6 6 Encounter Details Date Type Department Care Team (Late st Contact Info) Description 02/12/2023 Transcribe Orders eDH Incoming Referrals [phone] Lisa Zacarias APRN [address] [place], [place] [id number] Lung nodule Social History Tobacco Use Types Packs/Day Years [...] AM EDT Office [place] [address] Roddy Olson MD [facility] [place] [address] Scheduled Referrals Name Type Priority Associated Diagnoses Orde r Schedule Amb Ref To Thoracic Surgery Outpatient Referral Routine Lung nodule Ordered: 02/12/2023 documented as of this encounter Visit Diagnoses Diagnosis Lung nodule Solitary pulmonary nodule documented in this encounter Care Teams Equal Employment Opportunity Officer Relationship Specialty Start Date End Date Lisa Zacarias, DIETARY TECH PCP - General Family Medicine 01/08/19 documented as of this encounter
--- OUTSIDE RECORDS SUMMARY | 2024-02-04 18:38 | XMS_ITS | Encounter Summary ---
Author Organization [facility] [place] [address] Care Team Providers Care Snow Blower Name Role Phone Lisa Zacarias BAUTISTA Primary Care Provider [phone] Encounter Details Date Type Department Care Team (Late st Contact Info) Description 04/12/2022 Notes [place] [address] Zacarias Fox, RN Social History Tobacco Use Types Packs/Day [...] as of this encounter Progress Notes * Zacarias Fox RN - 04/12/2022 3:13 PM EDTSummary: Reclast Fior Block ?? 10:27 AM Note [employer] [place] returned a call stating no PA is required * Zacarias Fox RN - 04/12/2022 3:13 PM EDTSummary: Reclast/[facility] Reclast order set faxed to [facility] at fax: [phone]. Confirmation received. documented in this encounter Plan of Treatment Upcoming Encounters Date Type Department Care Team (Late st Contact Info) Description 12/04/2024 11:00 AM EDT Office Visit [place] [address] Roddy Olson MD [facility] [place] [address] documented as of this encounter Visit Diagnoses Not on filedocumented in this encounter Care Teams Snow Blower Relationship Specialty Start Date End Date Lisa Zacarias APRN PCP - General Family Medicine 01/08/19 documented as of this encounter
--- OUTSIDE RECORDS SUMMARY | 2024-02-04 18:38 | XMS_ITS | Encounter Summary ---
[place] [address] Care Team Providers Care Access Control Officer Name Role Phone Lisa Zacarias BAUTISTA Primary Care Provider [phone] Encounter Details Date Type Department Care Team (Late Contact Info) Description 09/20/2020 Orders Only Hematology/Oncology at [address] [id number] Elvia Nelson INSTANT POTATO PROCESSING SUPERVISOR [address] [place] [address] HEMATOLOGY ONCOLOGY [place], [place] [id number] Malignant neoplasm of upper-outer quadrant of left breast in female, estrogen receptor positive; halfway current use of aromatase inhibitor; Osteopenia, 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 Social History Tobacco Use Types Packs/Day Years [...] AM EDT Office [place] [address] Roddy Olson MD [facility] [place] [address] documented as of this encounter Visit Diagnoses Diagnosis Malignant neoplasm of upper-outer quadrant of left breast in female, estrogen receptor positive halfway current use of aromatase inhibitor Use of aromatase inhibitors Osteopenia, 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 documented in this encounter Care Teams Access Control Officer Relationship Specialty Start Date End Date Lisa Zacarias APRN PCP - General Family Medicine 01/08/19 documented as of this encounter
--- OUTSIDE RECORDS SUMMARY | 2024-02-04 18:38 | XMS_ITS | Encounter Summary ---
Author Organization Formerly [facility] [place] [address] Care Team Providers Care Workforce Development Specialist Name Role Phone Lisa Zacarias BAUTISTA Primary Care Provider [phone] Reason for Referral * Diagnostic Test (Routine) - Closed Specialty Diagnoses / Procedures Referred By Contac t Referred To Contact Radiology Diagnoses Atypical chest pain HUYNH (dyspnea on exertion) Coronary artery calcification Procedures NM Exercise Stress and Rest Myocardial Perfusion Federico Horne MD [facility] [place] [address] [place] [address] Referral ID Status Reason Start Date Expiration Date V isits Requested Visits Authorized [id number] Closed Specialty Service Requested 11/20/2019 05/18/2020 3 3 * Diagnostic Test (Routine) - Closed Specialty Diagnoses / Procedures Referred By Contac t Referred To Contact Radiology Diagnoses Atypical chest pain HUYNH (dyspnea on exertion) Coronary artery calcification Procedures NM Exercise Stress CT Component Federico Horne MD [facility] [place] [address] [place] [address] Referral ID Status Reason Start Date Expiration Date V isits Requested Visits Authorized [id number] Closed Specialty Service Requested 11/19/2019 05/21/2021 1 1 Reason for Visit * Reason Comments Shortness of Breath Chest Pain Follow-up pericardial effusion * Consultation (Routine) - Specialty Diagnoses / Procedures Referred By Contac t Referred To Contact Cardiology Diagnoses Pericardial effusion (noninflammatory) Hyperlipidemia, unspecified FURTHER EVALUATION OF INCIDENTAL FINDINGS OF A SMALL PERCARDIAL EFFUSION ON LOW DOSE LUNG CT SCREENING FOR LUNG CA WELL MODERATE CORONARY ARTERY CALCIFICATIONS. SHE HAS A HX HLP-ON A STATIN. SHE HAS A HX OF L BREAST ADENCARCINOMA - TREATED AT [facility] [place]. THE PERICARDIAL EFFUSION IS NOT A NEW FINDING IT HAS BEEN SEEN ON XRAY IN THE PAST. Lisa Zacarias, NOZZLE TENDER [address] [place] [address] Federico Horne MD [facility] [place] [address] Referral ID Status Reason Start Date Expiration Date V isits Requested Visits Authorized [id number] Consult, Test & Treat [facility] PCP Updated and/or Approved 08/21/2019 02/19/2020 6 6 Encounter Details Date Type Department Care Team (Latest Contact Info) Description 11/19/2019 9:40 AM EDT TH Visit (TeleHealth) Cardiology at [facility] [place] [address] [place] [phone] Federico Horne MD [facility] [place] [address] Atypical chest pain; HUYNH (dyspnea on exertion); Coronary artery calcification; Pericardial effusion Social History Tobacco Use Types Packs/Day Years [...] as of this encounter Progress Notes * Federico Horne MD - 11/19/2019 9:40 AM EDT CARDIOLOGY/VASCULAR MEDICINE TELE VISIT NOTE Kelley Jensen 11/19/19 The patient consented to this being a virtual telephone visit. HPI: Kelley Jensen is a 64 y.o. year old female with a history of COPD, breast cancer s/p lumpectomy and sentinel node biopsy (1/3 nodes positive) s/p chemotherapy and radiation to breast whom I meton 09/22/2019 for evaluation of pericardial effusion that was seen on CT chest. TTE on 11/12/19 showed small circumferential pericardial effusion with no evidence of tamponade or constriction. She reports since follow-up, she has noted multiple episodes of left-sided pain near her breast that can occur with rest or exertion, associated with worsening HUYNH. If occurring with exertion, she has to stop and pain resolves spontaneously after few minutes. No nighttime awakening from pain. Not associated with food. No PND, orthopnea, lower extremity edema, palpitations, pre-syncope or syncope. She has HUYNH for quite some time, presumed due to COPD. She does not have known history of CAD. She is on high intensity statin for hyperlipidemia. Not measuring vitals at home. Brief ROS: Activity level: Active on every day basis, no exercise regimen No new orthopnea, PND, LE edema. No lightheadedness, dizziness, syncope/pre- syncope. No new CP. Medications: Current Outpatient Medications Medication Sig Dispense Refill [...] mcg Tablet Take by mouth daily. 0 Medications were reviewed with patient. Objective Data: VS at home: Not measuring Labs: Lab Results Component Value Date WBC 10.0 01/28/2015 HGB 15.5 01/28/2015 HCT 44.3 01/28/2015 MCV 87.9 01/28/2015 PLATELET 250 01/28/2015 No results for input(s): NA, K, CL, CO2, BUN, CREATININE, GLUCOSE in the last 168 hours. TTE 11/12/19: 1. The left ventricular chamber size is [...] See remainder of report for additional findings. Assessment: #1 Small pericardial effusion #2 History of breast cancer Mrs. Jensen is a very pleasant 64 year old woman with history of breast cancer s/p lumpectomy/chemo/radiation, COPD and small pericardial effusion. This is likely in the setting of prior radiation. Her LV function is normal. No findings c/w constriction. This should not be causing her HUYNH. Will continue to follow this annually. Plan: 1. TTE in 1 year. 2. Follow up after TTE. #3 Atypical chest pain #4 HUYNH She has had episodes of chest pain, which have atypical features (can happen at rest, sharp pain). However, given risk factors (and she has coronary artery calcification seen on CT), will obtain exercise stress test to further evaluate for ischemia. Further management will depend on results of MPI. Plan; 1. Exercise MPI. Will call with results. I spent a total of 18 minutes associated with this encounter including chart review, the patient encounter, and documentation, of which more than 50% was with direct patient contact. Federico Horne MD, MPH, [facility] Cardiovascular Pin Inserter RegulatorGrades 7 And 8 [place] [address] documented in this encounter Plan of Treatment Upcoming Encounters Date Type Department Care Team (Late st Contact Info) Description 12/04/2024 11:00 AM EDT Office Visit [place] [address] Roddy Olson MD [facility] [place] [address] documented as of this encounter Results * NM Exercise Stress [...] below. Federico Horne MD IMG NM ORDERABLES * Nuclear Exercise Stress Cardiology (11/28/2019 11:37 AM EDT) Anatomical Region Laterality Modality Other Federico Horne MD CARDIAC SERVICES ORD ERABLES * NM Exercise Stress and Rest Myocardial [...] contact the number below. Federico Horne MD [facility] NM ORDERABLES documented in this encounter Visit Diagnoses Diagnosis Atypical chest pain Other chest pain HUYNH (dyspnea on exertion) Other dyspnea and respiratory abnormality Coronary artery calcification Pericardial effusion Unspecified disease of pericardium Atypical chest pain Other chest pain HUYNH (dyspnea on exertion) Other dyspnea and respiratory abnormality Coronary artery calcification Atypical chest pain Other chest pain HUYNH (dyspnea on exertion) Other dyspnea and respiratory abnormality Coronary artery calcification documented in this encounter Care Teams Workforce Development Specialist Relationship Specialty Start Date End Date Lisa Zacarias APRN PCP - General Family Medicine 01/08/19 documented as of this encounter
--- OUTSIDE RECORDS SUMMARY | 2024-02-04 18:38 | XMS_ITS | Encounter Summary ---
Author Organization [facility] [place] [address] Care Team Providers Care Verification Engineer Name Role Phone Lisa Zacarias APRN Primary Care Provider [phone] Encounter Details Date Type Department Care Team (Late st Contact Info) Description 04/05/2023 [place]phone [place] [address] Zoila Segundo Social History Tobacco Use Types [...] AM EDT Office [place] [phone] Roddy Olson MD [facility] [place] [address] documented as of this encounter Visit Diagnoses Not on filedocumented in this encounter Care Teams Verification Engineer Relationship Specialty Start Date End Date Lisa Zacarias APRN PCP - General Family Medicine 01/08/19 documented as of this encounter
--- OUTSIDE RECORDS SUMMARY | 2024-02-04 18:38 | XMS_ITS | Encounter Summary ---
Author Organization [facility] [place] [address] Care Team Providers Care Computer Education Professor Name Role Phone Lisa Zacarias BAUTISTA Primary Care Provider [phone] Reason for Referral * Diagnostic Test (Routine) - Closed Specialty Diagnoses / Procedures Referred By Contac t Referred To Contact Cardiology Diagnoses Pericardial effusion (noninflammatory) Procedures Echocardiogram Transthoracic([facility]) Federico Horne MD [facility] [address] [facility] [place] [address] Referral ID Status Reason Start Date Expiration Date V isits Requested Visits Authorized [id number] Closed Specialty Service Requested 09/22/2019 09/21/2020 1 1 Reason for Visit * Diagnostic Test (Routine) - Closed Specialty Diagnoses / Procedures Referred By Contalejandro t Referred To Contact Cardiology Diagnoses Pericardial effusion (noninflammatory) Procedures Echocardiogram Transthoracic([facility]) Federico Horne MD [facility] [address] [facility] [place] [address] Referral ID Status Reason Start Date Expiration Date V isits Requested Visits Authorized [id number] Closed Specialty Service Requested 09/22/2019 09/21/2020 1 1 Encounter Details Date Type Department Care Team (Latest Contact Info) Description 11/12/2019 12:30 PM EDT - 11/12/2019 11:59 PM EDT Hospital Encounter [place] [phone] Federico Horne MD [facility] [place] [address] Pericardial effusion (noninflammatory) Discharge Disposition: Home Social History Tobacco Use [...] Use with spacer citalopram (CELEXA) 20 mg TabletIndications:Shivaharsha lopez neoplasm of left female breast, unspecified [...] 6 tabs in 24 hours 11/17/2015 03/31/2021 ipratropium-albuterol (COMBIVENT RESPIMAT) 20-100 mcg/actuation Mist Inhale 1 puff into the lungs every 6 hours as needed for Wheezing. Reported on 12/14/2016 11/17/2019 documented as of this encounter Plan of Treatment Upcoming Encounters Date Type Department Care Team (Late st Contact Info) Description 12/04/2024 11:00 AM EDT Office [place] [address] Roddy Olson MD [facility] [place] [address] documented as of this encounter Procedures Procedure Name Priority Date/Time Associated Diagnosis Comments ECHO COMPLETE Routine 11/12/2019 1:55 PM EDT Pericardial effusion (noninflammatory) documented in this encounter Results * ECHO COMPLETE (11/12/2019 1:55 PM EDT) EF 60 [facility]ART[facility] SYSTEM Anatomical Region Laterality Modality Other 11/12/2019 Narrative 11/12/2019 3:30 PM EDT Procedure: ?Transthoracic Echocardiogram Patient: ?CAMILA CUNNINGHAM R ?(Age): 1955(64y) Med Rec#: ? [id number] ?Sex: ?F ? Site Loc: ? [facility] ?Ht / Wt: ??167.64(cm)/92.9 Pt. Loc: ?Echo Lab ?BSA: ?2.02 Study Date: ?? 11/12/2019 ?Pt. Type: Outpatient Tape: ? 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 [...] Vmax ?0.57 ? m/sec ? MV deceleration obau678.51 ? msec ? MV A-wave Vmax ?0.87 [...] ? Mid-Inferior ?Normal ? Mid-Inferoseptal ?Normal ? [place]-Septal ? Normal ? [place]-Anterior ? Normal ? [place]-Lateral ?Normal ? [place]-Inferior ? Normal ? [place]-Tip ?Normal ? This report has been electronically signed by: Vasu Heard MD ? 11/12/2019 15:29:08 Images reviewed and interpretation verified [facility] Cardiac Ultrasound Laboratory Procedure Note Vasu Heard MD - 11/12/2019 Procedure: Transthoracic Echocardiogram Patient: CAMILA MARINO(Age): 1955(64y) Med Rec#: [id number] Sex: F Site Loc: [facility] Ht / Wt: 167.64(cm)/92.9 Pt. Loc: Echo Lab BSA: 2.02 Study Date: 11/12/2019 Pt. 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) BP: 137/80 [...] MV E-wave Vmax 0.57 m/sec MV deceleration exnt427.51 msec MV A-wave Vmax 0.87 m/sec MV [...] Normal Mid-Posterolateral Normal Mid-Inferior Normal Mid-Inferoseptal Normal [place]-Septal Normal [place]-Anterior Normal [place]-Lateral Normal [place]-Inferior Normal [place]-Tip Normal This report has been electronically signed by: Vasu Heard MD 11/12/2019 15:29:08 Images reviewed and interpretation verified [facility] Cardiac Ultrasound Laboratory Federico Horne MD ECHO ORDERABLES documented in this encounter Visit Diagnoses Diagnosis Pericardial effusion (noninflammatory) documented in this encounter Care Teams Computer Education Professor Relationship Specialty Start Date End Date Lisa Zacarias, BAUTISTA PCP - General Family Medicine 01/08/19 documented as of this encounter
--- OUTSIDE RECORDS SUMMARY | 2024-02-04 18:38 | XMS_ITS | Encounter Summary ---
Author Organization [facility] Address [facility] [place] [address] Care Team Providers Care Special Education Paraeducator Name Role Phone Lias Zacarias BAUTISTA Primary Care Provider [phone] Encounter Details Date Type Department Care Team (Late st Contact Info) Description 03/31/2021 2:00 PM EDT Office Visit Hematology/Oncology at [address] [phone] [facility] DR [place] [address] Elvia Nelson APRN [address] [place] [address] DR HEMATOLOGY ONCOLOGY [place], [place] [id number] Malignant neoplasm of upper-outer quadrant of left [...] Sign Reading Time Taken Comments Blood Pressure 152/68 03/31/2021 1:54 PM EDT Pulse 74 03/31/2021 1:54 PM EDT Temperature 36.3 ??C (97.3 ??F) 03/31/2021 1:54 PM ED T Respiratory Rate 18 03/31/2021 1:54 PM EDT Oxygen Saturation 100% 03/31/2021 1:54 PM EDT Inhaled Oxygen Concentration - - Weight 97.5 kg (215 lb) 03/31/2021 1:54 PM EDT Height 169 cm (5' 6.54) 03/31/2021 1:54 PM EDT Body Mass Index 34.15 03/31/2021 1:54 PM EDT documented in this encounter Progress Notes * Giuseppe Shaw MD - 03/31/2021 2:00 PM EDT Subjective: Patient ID: Kelley Jensen is a 65 y.o. female. HPI Left breast cancer diagnosed 02/13 Mammographically detected Needle biopsy showed intraductal carcinoma, low-grade ER positive, IL positive, HER-2 negative Partial mastectomy and biopsy of left axillary node 02/13 0.7 cm primary, positive margin requiring reexcision to negative margin 1/3 lymph nodes positive Adjuvant AC/Taxol 03/16-08/17 Radiation therapy completed 10/15 Start Arimidex 11/14 DEXA scan 03/19 showed osteopenia left forearm and L-spine Prolia 03/21 Stop arimidex 11/19 The patient returns to the [facility]. She has a history of left breast cancer as notedabove. She completed her 5 years of aromatase inhibitor therapy 11/19. Generally she has been doing quite well. No concerns regarding relapsed breast cancer. Energy is good. Review of Systems Constitutional: Negative for fatigue, [...] masses, no axillary adenopathy Assessment and Plan: 65-year-old female with a history of a T1N1 [...] for screening for a new breast cancer. She has more problems we would be happy to see her sooner otherwise she return to her primary care doctor. documented in this encounter Plan of Treatment Upcoming Encounters Date Type Department Care Team (Late st Contact Info) Description 12/04/2024 11:00 AM EDT Office [place] [address] [facility] [place] [address] documented as of this encounter Visit Diagnoses Diagnosis Malignant neoplasm of upper-outer quadrant of left breast in female, estrogen receptor positive documented in this encounter Care Teams Special Education Paraeducator Relationship Specialty Start Date End Date Lisa Zacarias APRN PCP - General Family Medicine 01/08/19 documented as of this encounter
--- OUTSIDE RECORDS SUMMARY | 2024-02-04 18:39 | XMS_ITS | Encounter Summary ---
Author Organization [facility] [place] [address] Care Team Providers Care Wax Pattern Repairer Name Role Phone NoreenLatishaandreas Hawkins APRN Primary Care Provider [phone] Reason for Visit * Reason Comments Follow Up Surgery Encounter Details Date Type Department Care Team (Late st Contact Info) Description 12/21/2016 2:15 PM EDT Office [place] [address] Kiah [place] CONSTRUCTION IRONWORKER HELPER [facility] [place] [address] History of breast cancer Social History Tobacco Use Types Packs/Day Years Used Date Smoking Tobacco: Former Cigarettes 1 30 0 02/25/1985 - 02/25/2015 Smokeless Tobacco: Never Alcohol Use Standard Drinks/Week Comments No 0 (1 standard drink = 0.6 oz pur e alcohol) Sex and Gender Information Value Date Recorded Sex Assigned at Not on file Gender Identity Not on file Sexual Orientation Not on file documented as of this encounter Progress Notes * Kiah [place] APRN - 12/21/2016 2:15 PM EDT Images from the original note were not included. Kelley returns today in surgical follow up of left breast cancer. She is a 61 year old patient of Taniya. Kelley presented for screening mammography in November,. This revealed a concerning lesion in the upper, outer left breast. Additional imaging including mammogram and ultrasound confirmed a solid 8mmlesion. There was also a question of an axillary node. Biopsy of the breast revealed low to intermediate grade IDC which was ER/DC+ and HER2-. ?? MRI was obtained which revealed a question of contralateral disease (work up benign) and a questionof an abnormal node (which was wire localized for surgery). Kelley opted for breast conservation with sentinel node excision including the wire localized node as well as a partial mastectomy. She was then treated with AC-T and whole breast radiation. She is now on arimidex without any side effects. FH: brother with cystic adenoid carcinoma of the leg. No breast or ovarian cancer SH: with 2 daughters. Quit smoking in January,. currrently not working. Surgical pathology revealed: DIAGNOSIS CORRECTED REPORT (see Discussion) Specimen (s): A - Left partial mastectomy B - Left axillary sentinel nodes Histologic Type: Invasive ductal carcinoma Tumor Grade: Low (High, Intermediate, Low) Cgcmil-Vgnjh-Sfamyasogz Score: 5 Tubular Differentiation: 1 Mitotic Rate: 1 Nuclear Grade: 3 Tumor Size: 0.7 cm (maximum diameter) In Situ Histologic Type: DCIS Extensive/Minor Component: Minor Grade: Intermediate (High, Intermediate, Low) Necrosis: Absent (Present / Absent) Pattern(s): Papillary Microcalcifications: Associated with DCIS and IDC Angiolymphatic Invasion: Not identified Perineural invasion: Not identified Nipple involvement: NA Skin/Skeletal muscle invasion: NA Other Findings: Healing biopsy site Resection Margins (RM): Invasive Ca: Involved, focally at yellow/lateral RM (A3) Distance from closest RM(s): 0.45 cm to next nearest black/deep RM DCIS: Uninvolved (involved/uninvolved) Distance from closest RM(s): 0.2 cm to yellow/lateral Axillary lymph nodes: Total no. nodes sampled: 3 No. non-sentinel nodes: 0 (Specimen _, block(s)_) No. positive for carcinoma: NA (H&E stain only) No. sentinel nodes: 3 (Specimen B, blocks(s)1-2)(H&E only) No. with metastases 0.02 cm or less (isolated tumor cells) 0 No. with metastases >0.02 cm to 0.2 cm (micrometastases) 0 No. with metastases >0.2 cm (macrometastases) 1 Total no. nodes negative for carcinoma: 2 For positive nodes: Largest deven deposit 1.0 cm Extranodal extension No Estrogen/Progestin receptors, and FISH performed on prior bx [id number] - see separate report. pTNM: ---pT1b N1a (AJCC, 7th edition, 2010) C - Left breast lateral margin, re-excsion: Fibrocystic changes with adenosis, columnar cell hyperplasia and usual ductal hyperplasia. On exam, Kelley is well appearing and in NAD. There is no cervical, supraclavicular or axillary adenopathy. The left breast has a well healed incision on the superior areolar border. There is slight volume reduction but intact shape. No masses in either breast. No abdominal tenderness or masses. Comprehensive Breast Program Surgery Follow Up Note Range of motion of surgical arm complete Lymphedema present No Cosmesis-surgeon reported Cosmesis-patient reported Excellent Excellent Local or regional recurrence No Contralateral cancer present No Distant recurrence present No Date of last follow up 12/21/16 Mammogram today: pending A/P 61 yo female doing well after surgery, chemo, radiation for stage II IDC of the left breast. Noevidence of local or systemic recurrence. Plan ongoing annual mammograms- next due in November,. I will see Kelley at that time. She will call with any questions or concerns in the interim. Office Visit on 03/10/2015 documented in this encounter Plan of Treatment Upcoming Encounters Date Type Department Care Team (Late st Contact Info) Description 12/04/2024 11:00 AM EDT Office [place] [address] Roddy Olson MD [facility] [place] [address] documented as of this encounter Visit Diagnoses Diagnosis History of breast cancer Personal history of malignant neoplasm of breast documented in this encounter Care Teams Wax Pattern Repairer Relationship Specialty Start Date End Date Jewels Sorto APRN PCP - General 05/24/10 01/09/18 documented as of this encounter
--- OUTSIDE RECORDS SUMMARY | 2024-02-04 18:39 | XMS_ITS | Encounter Summary ---
Author Organization [facility] Address [facility] [place] [address] Care Team Providers Care Candle Pourer Name Role Phone BarrenJewels ca Shruthi BAUM Primary Care Provider [phone] Encounter Details Date Type Department Care Team (Latest Contact Info) Description 12/21/2016 2:01 PM EDT - 12/21/2016 11:59 PM EDT Hospital [place] [phone] Shiloh Cruz MD [facility] [place] [address] Malignant neoplasm of left female breast, unspecified site of breast Discharge Disposition: Home Social History Tobacco Use [...] Sig Dispensed Refills Start Date End Date citalopram (CELEXA) 20 mg TabletIndications:Malig nant neoplasm [...] mg by mouth daily. Reported on 06/12/2016 anastrozole (ARIMIDEX) 1 mg TabletIndications:Malharsha nanluz neoplasm of upper-outer quadrant of left female breast Take 1 tablet by mouth daily. 90 tablet 3 01/24/2016 02/12/2017 acetaminophen (TYLENOL) 650 mg Tablet Sustained Release Take 1 tablet by mouth every 8 hours as needed for Pain. Do not exceed 6 tabs in 24 hours 11/17/2015 03/31/2021 senna-docusate (PERICOLACE) 8.6-50 mg Tablet Take 1 tablet by mouth 2 times daily. 60 tablet 1 11/17/2015 04/02/2019 ipratropium-albuterol (COMBIVENT RESPIMAT) 20-100 mcg/actuation Mist Inhale 1 puff into the lungs every 6 hours as needed for Wheezing. Reported on 12/14/2016 11/17/2019 EMOLLIENT BASE (CREAM BASE TOP) Apply topically. Reported on 12/14/2016 05/07/2017 hydrochlorothiazide (HYDRODIURIL) 25 mg Tablet Take 25 mg by mouth daily. 07/22/2018 simvastatin (ZOCOR) 40 mg Tablet Take 40 mg by mouth nightly. 0 01/15/2015 09/22/2019 documented as of this encounter Plan of Treatment Upcoming Encounters Date Type Department Care Team (Late st Contact Info) Description 12/04/2024 11:00 AM EDT Office [place] [address] Roddy Olson MD [facility] [place] [address] documented as of this encounter Procedures Procedure Name Priority Date/Time Associated Diagnosis Comments MAMMO SCREENING CAD AND EDIN BILATERAL Routine 12/21/2016 2:20 PM EDT Malignant neoplasm of left female breast, unspecified site of breast documented in this encounter Results * Mammo Screen CAD and Edin Bilat (Generic) (12/21/2016 2:20 PM EDT) Anatomical Region Laterality Modality Breast Bilateral Mammography Narrative 12/21/2016 3:41 PM EDT REASON FOR EXAM: Screening. History of left breast cancer. TECHNIQUE: CC and MLO views were obtained of both breasts. Computer aided detection was used. 3D tomosynthesis images were obtained in addition to 2D images. Comparison: The study is compared with prior images. FINDINGS: Breast density:The breasts are extremely dense, which lowers the sensitivity of mammography. There are no suspicious microcalcifications, masses, or areas of distortion. There are post treatment changes in the left breast. CONCLUSION: No mammographic evidence of malignancy. RECOMMENDATION: Routine annual screening. BIRADS CATEGORY 2: BENIGN FINDINGS * ??The [employer] and The Society of Breast Imaging recommend annual screening beginning at age 40 for the general female population. * ??Screening should continue as long as a woman is in good health and is expected to live 10 more years or longer. * ??All women should be familiar with the known benefits, limitations, and potential harms linked to breast cancer screening. They also should know how their breasts normally look and feel and report any breast changes to a health care provider right away. * ??Some women, because of their family history, a genetic tendency, or certain other factors, should be screened with MRIs along with mammograms. (The number of women who fall into this category is very small.) The patient and health care provider should discuss the patient history and decide if earlier screening and breast MRI are appropriate. Shiloh Cruz MD IMG MAMMO ORDERABLE S documented in this encounter Visit Diagnoses Diagnosis Malignant neoplasm of left female breast, unspecified site of breast documented in this encounter Care Teams Candle Pourer Relationship Specialty Start Date End Date Jewels Sorto APRN PCP - General 05/24/10 01/09/18 documented as of this encounter
--- OUTSIDE RECORDS SUMMARY | 2024-02-04 18:39 | XMS_ITS | Encounter Summary ---
Author Organization [facility] [place] [address] Care Team Providers Care Teletype Mechanic Name Role Phone Jewels Sorto APRN Primary Care Provider [phone] Reason for Visit * Reason Comments Breast Cancer Encounter Details Date Type Department Care Team (Late st Contact Info) Description 07/09/2017 2:30 PM EST Office Visit Hematology/Oncology at [address] [address] Hector Carey MD [address] [place] [address] Malignant neoplasm of upper-outer quadrant of left [...] Sign Reading Time Taken Comments Blood Pressure 143/73 07/09/2017 2:39 PM EST Pulse 89 07/09/2017 2:39 PM EST Temperature 36.7 ??C (98.1 ??F) 07/09/2017 2:39 PM ES T Respiratory Rate 16 07/09/2017 2:39 PM EST Oxygen Saturation 100% 07/09/2017 2:39 PM EST Inhaled Oxygen Concentration - - Weight 83.5 kg (184 lb) 07/09/2017 2:39 PM EST Height 168.8 cm (5' 6.46) 07/09/2017 2:39 PM ES T copied Body Mass Index 29.29 07/09/2017 2:39 PM EST documented in this encounter Progress Notes * Hector Carey MD - 07/09/2017 2:30 PM EST Diagnosis: 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 The tumor was 0.7 cm, low-grade, ER/NH positive, with 1 of 3 sentinel positive nodes HER-2 was negative. 01/2015 .S/P Dose dense AC followed by T and XRT to breast, now on Arimidex x 15 yrs SUBJECTIVE: Kelley comes in today for her usual followup on her breast cancer. She remains on Arimidex 1 mg daily. Does sound like she has started smoking again and wants to try Chantix again to quit smoking which was successful before. She is motivated to do this so we will go ahead with that today. Does have her mammogram scheduled for this summer at [facility] and has really been feeling well overall. She is compliant with her medication. Review of systems is otherwise negative. Past medical history and social history were reviewed from 6 months ago and unchanged. Current Outpatient Prescriptions on File Prior to Visit Medication Sig Dispense Refill ??? anastrozole (ARIMIDEX) 1 mg Tablet Take 1 tablet by mouth daily. 90 tablet 3 ??? citalopram (CELEXA) 20 mg Tablet Take 1 tablet by mouth daily. 60 tablet 6 ??? ibuprofen (ADVIL;MOTRIN) 600 mg Tablet Take 1 tablet by mouth every 6 hours as needed for Pain.40 tablet 0 ??? hydrochlorothiazide (HYDRODIURIL) 25 mg Tablet Take 25 mg by mouth daily. ??? levothyroxine (SYNTHROID) 25 mcg Tablet Take by mouth daily. 0 ??? simvastatin (ZOCOR) 40 mg Tablet Take 40 mg by mouth nightly. 0 ??? CHANTIX STARTING MONTH BOX 0.5 mg (11)- 1 mg (42) Tablets, Dose Pack take take as directed ON PACKAGE 0 ??? acetaminophen (TYLENOL) 650 mg Tablet Sustained Release Take 1 tablet by mouth every 8 hours asneeded for Pain. Do not exceed 6 tabs in 24 hours (Patient not taking: Reported on 05/07/2017) ??? senna-docusate (PERICOLACE) 8.6-50 mg Tablet Take 1 tablet by mouth 2 times daily. (Patient nottaking: Reported on 05/07/2017) 60 tablet 1 ??? loratadine (CLARITIN) 10 mg Tablet Take 10 mg by mouth daily. Reported on 06/12/2016 ??? ipratropium-albuterol (COMBIVENT RESPIMAT) 20-100 mcg/actuation Mist Inhale 1 puff into the lungs every 6 hours as needed for Wheezing. Reported on 12/14/2016 No current facility-administered medications on file prior to visit. . No Known Allergies The patient is currently on disability from her breast cancer. 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 She is accompanied today by her daughter who has cerebral palsy. She is and has excellent home support. Review of Systems Constitutional: Negative for fever, chills, activity change, fatigue and unexpected weight change. HENT: Negative for sore throat, mouth sores and trouble swallowing. Eyes: Negative. Respiratory: Negative for cough, shortness of breath and wheezing. Cardiovascular: Negative for chest pain, palpitations and leg swelling. Gastrointestinal: Negative for nausea, vomiting, abdominal pain, diarrhea, constipation and abdominal distention. Genitourinary: Negative for dysuria and difficulty urinating. Musculoskeletal: Negative. Skin: Negative. Neurological: Negative. Hematological: Negative for adenopathy. BP 143/73 (Patient Position: Sitting) Pulse 89 Temp 36.7 ??C (98.1 ??F) (Oral) Resp 16 Ht 168.8 cm (5' 6.46) Comment: copied Wt 83.5 kg (184 lb) SpO2 100% BMI 29.29 kg/m2 Head: Normocephalic, without obvious abnormality, atraumatic Eyes: PERRL, conjunctiva/corneas clear, EOM's intact, fundi benign, both eyes Ears: Normal TM's and external ear canals, both ears Nose: Nares normal, septum midline, mucosa normal, no drainage or sinus tenderness Throat: Lips, mucosa, and tongue normal; teeth and gums normal Neck: Supple, symmetrical, trachea midline, no adenopathy, thyroid: not enlarged, symmetric, no tenderness/mass/nodules, no carotid bruit or JVD Back: Symmetric, no curvature, ROM normal, no CVA tenderness Lungs: Clear to auscultation bilaterally, respirations unlabored Chest Wall: No tenderness or deformity Heart: Regular rate and rhythm, S1, S2 normal, no murmur, rub or gallop Abdomen: Soft, non-tender, bowel sounds active all four quadrants, no masses, no organomegaly She has a small ucler in the skin fold of her appy scar Extremities: Extremities normal, atraumatic, no cyanosis or edema Pulses: 2+ and symmetric Skin: Skin color, texture, turgor normal, no rashes or lesions Lymph nodes: Cervical, supraclavicular, and axillary nodes normal Neurologic: Normal ? Surgical Pathology DIAGNOSIS 11/01/15 Endometrial biopsy: Small fragment of highly atypical epithelium suspicious for carcinoma intermixed with ??atrophic endometrium and cervical mucus. (see Discussion) CR-0 DISCUSSION There is a small fragment of highly atypical endometrial tissue with increased ??mitotic activity suspicious for carcinoma. ??On deeper levels (IHC slides) this ??focus is significantly smaller but shows moderate positivity for p53 and is strongly ??positive for p16 and serous carcinoma cannot be excluded. ??Recommend endometrial ??curettings to further characterize. ? Surgical Pathology DIAGNOSIS A - Uterus, cervix, and bilateral ovaries and fallopian tubes, ? resection: ? 1 - No evidence of residual malignancy (see Discussion). ? 2 - Squamous atrophy and inflammation, cervix. ? 3 - Submucosal lipoleiomyoma, uterus. ? 4 - Focal adenomyosis. ? 5 - Bilateral benign atrophic ovaries. ? 6 - Bilateral fallopian tubes without histopathologic abnormality. B - Right pelvic sentinel lymph node, excision: ? One lymph node negative for malignancy (0/1). C - Right pelvic lymph nodes, resection: ? Three lymph nodes negative for malignancy (0/3). D - Left pelvic lymph nodes, resection: ? Six lymph nodes negative for malignancy (0/6). Mammograms 12/23/15 REASON FOR EXAM: Screening. History of left breast cancer. ?? TECHNIQUE: CC and MLO views were obtained of both breasts. Computer aided detection was used. 3D tomosynthesis images were obtained in addition to 2D images. ?? Comparison: The study is compared with prior images. ?? FINDINGS: Breast density:The breasts are heterogeneously dense, which may obscure small masses. ?? There are no suspicious microcalcifications, masses, or areas of distortion. There are post treatment changes in the left breast. ?? CONCLUSION: No mammographic evidence of malignancy. ?? RECOMMENDATION: Routine screening. ?? BIRADS CATEGORY 2: BENIGN FINDINGS ?? [facility] ONCOLOGY ([facility]) 03/29/2015 Day, Cycle Day 1, Cycle 1 cyclophosphamide (CYTOXAN) IV 600 mg/m2/dose = 1,242 mg DOXOrubicin (ADRIAMYCIN) IV 60 mg/m2/dose = 124.2 mg PACLitaxel (TAXOL) IV pegfilgrastim (NEULASTA) SubQ 6 mg ONCBCN ONCOLOGY ([facility]) 04/15/2015 Day, Cycle Day 1, Cycle 2 cyclophosphamide (CYTOXAN) IV 600 mg/m2/dose = 1,242 mg DOXOrubicin (ADRIAMYCIN) IV 60 mg/m2/dose = 124.2 mg PACLitaxel (TAXOL) IV pegfilgrastim (NEULASTA) SubQ 6 mg ONCBCN ONCOLOGY ([facility]) 04/29/2015 Day, Cycle Day 1, Cycle 3 cyclophosphamide (CYTOXAN) IV 600 mg/m2/dose = 1,242 mg DOXOrubicin (ADRIAMYCIN) IV 60 mg/m2/dose = 124.2 mg PACLitaxel (TAXOL) IV pegfilgrastim (NEULASTA) SubQ 6 mg ONCBCN ONCOLOGY ([facility]) 05/13/2015 Day, Cycle Day 1, Cycle 4 cyclophosphamide (CYTOXAN) IV 600 mg/m2/dose = 1,242 mg DOXOrubicin (ADRIAMYCIN) IV 60 mg/m2/dose = 124.2 mg PACLitaxel (TAXOL) IV pegfilgrastim (NEULASTA) SubQ 6 mg [facility] ONCOLOGY ([facility]) 05/31/2015 06/07/2015 Day, Cycle Day 1, Cycle 1 Day 8, Cycle 1 cyclophosphamide (CYTOXAN) IV DOXOrubicin (ADRIAMYCIN) IV PACLitaxel (TAXOL) IV 80 mg/m2/dose = 166 mg 80 mg/m2/dose = 166 mg pegfilgrastim (NEULASTA) SubQ ONCBCN ONCOLOGY ([facility]) 06/14/2015 06/21/2015 Day, Cycle Day 15, Cycle 1 Day 1, Cycle 2 cyclophosphamide (CYTOXAN) IV DOXOrubicin (ADRIAMYCIN) IV PACLitaxel (TAXOL) IV 80 mg/m2/dose = 166 mg 80 mg/m2/dose = 166 mg pegfilgrastim (NEULASTA) SubQ [facility] ONCOLOGY ([facility]) 06/28/2015 07/05/2015 Day, Cycle Day 8, Cycle 2 Day 15, Cycle 2 cyclophosphamide (CYTOXAN) IV DOXOrubicin (ADRIAMYCIN) IV PACLitaxel (TAXOL) IV 80 mg/m2/dose = 166 mg 80 mg/m2/dose = 166 mg pegfilgrastim (NEULASTA) SubQ [facility] ONCOLOGY ([facility]) 07/12/2015 07/19/2015 Day, Cycle Day 1, Cycle 3 Day 8, Cycle 3 cyclophosphamide (CYTOXAN) IV DOXOrubicin (ADRIAMYCIN) IV PACLitaxel (TAXOL) IV 80 mg/m2/dose = 166 mg 80 mg/m2/dose = 166 mg pegfilgrastim (NEULASTA) SubQ [facility] ONCOLOGY ([facility]) 07/26/2015 08/02/2015 Day, Cycle Day 15, Cycle 3 Day 1, Cycle 4 cyclophosphamide (CYTOXAN) IV DOXOrubicin (ADRIAMYCIN) IV PACLitaxel (TAXOL) IV 80 mg/m2/dose = 166 mg 80 mg/m2/dose = 166 mg pegfilgrastim (NEULASTA) SubQ [facility] ONCOLOGY ([facility]) 08/09/2015 08/16/2015 Day, Cycle Day 8, Cycle 4 Day 15, Cycle 4 cyclophosphamide (CYTOXAN) IV DOXOrubicin (ADRIAMYCIN) IV PACLitaxel (TAXOL) IV 80 mg/m2/dose = 166 mg 80 mg/m2/dose = 166 mg pegfilgrastim (NEULASTA) SubQ Laboratory today shows normal electrolytes. A creatinine of 0.69, a bilirubin of 0.26, ALT of 103. A calcium of 9.3. CBC shows a white count of 6.69, hemoglobin 14.8, hematocrit 43.2 and platelet count 212,000 with a neutrophil count of 4.29. ASSESSMENT/PLAN: Kelley is doing well with no evidence of recurrent breast cancer now 2-1/2 years after her initial diagnosis and a bit more than 2 years after the completion of her chemotherapy. She is tolerating the Arimidex well and is compliant with the medication. Will continue on that. We did talk about checking a bone density study sometime this coming summer. Will order that when we see her back in December. As noted, she has had mammogram at [facility] scheduled for the summer as well. She will call if there are issues or problems in the interim. documented in this encounter Plan of Treatment Upcoming Encounters Date Type Department Care Team (Late st Contact Info) Description 12/04/2024 11:00 AM EDT Office [place] [address] Roddy Olson MD [facility] DR THORACIC [place] [address] documented as of this encounter Procedures Procedure Name Priority Date/Time Associated Diagnosis Comments LAB SCAN 07/09/2017 12:00 AM EST documented in this encounter Results * SCAN DOC: LAB (07/09/2017 12:00 AM EST) Narrative 07/09/2017 12:00 AM EST Ordered by an unspecified provider. Scanning Provider MEDIA MGR SCAN EXT O RDR/RSLT documented in this encounter Visit Diagnoses Diagnosis Malignant neoplasm of upper-outer quadrant of left breast in female, estrogen receptor positive documented in this encounter Care Teams Teletype Mechanic Relationship Specialty Start Date End Date Jewels Sorto APRN PCP - General 05/24/10 01/09/18 documented as of this encounter
--- OUTSIDE RECORDS SUMMARY | 2024-02-04 18:39 | XMS_ITS | Encounter Summary ---
Author Organization [facility] Address [facility] [place] [address] Care Team Providers Care Electrical Wiring Lineman Name Role Phone Lisa Zacarias BAUTISTA Primary Care Provider Encounter Details Date Type Department Care Team (Late st Contact Info) Description 01/08/2019 9:14 AM EDT - 01/08/2019 11:59 PM EDT Hospital Encounter Mammography/[place] [phone] Kiah Loomis APRN [facility] [place] [address] Encounter for screening mammogram for breast cancer Discharge Disposition: Home Social History Tobacco Use Types Packs/Day Years Used Date Smoking Tobacco: Some Days Cigarettes 1 30 Started: 02/25/1985; Last attempted [...] mg by mouth daily. Reported on 06/12/2016 buPROPion (WELLBUTRIN SR OR ZYBAN) 150 mg tablet sustained-release 12 hr Take 150 mg by mouth 2 times daily. 0 12/03/2018 04/02/2019 anastrozole (ARIMIDEX) 1 mg TabletIndications:Malig nant neoplasm of upper-outer quadrant of left breast in female, estrogen receptor positive Take 1 tablet by mouth daily. 90 tablet 3 03/15/2018 03/28/2019 cephalexin (KEFLEX) 500 mg Capsule Take 500 mg by mouth 4 times daily. 04/02/2019 CHANTIX STARTING MONTH BOX 0.5 mg (11)- 1 mg (42) Tablets, Dose PackIndications:Maligna nt neoplasm of upper-outer quadrant of left breast in female, estrogen receptor positive Take 1 each by mouth See Admin Instructions. 53 tablet 07/09/2017 09/22/2019 acetaminophen (TYLENOL) 650 mg Tablet Sustained Release [...] needed for Wheezing. Reported on 12/14/2016 11/17/2019 simvastatin (ZOCOR) 40 mg Tablet Take 40 mg by mouth nightly. 0 01/15/2015 09/22/2019 documented as of this encounter Plan of Treatment Upcoming Encounters Date Type Department Care Team (Late st Contact Info) Description 12/04/2024 11:00 AM EDT Office [place] [address] Roddy Olson MD [facility] [place] [address] documented as of this encounter Procedures Procedure Name Priority Date/Time Associated Diagnosis Comments MAMMO SCREENING CAD AND EDIN BILATERAL Routine 01/08/2019 9:42 AM EDT Encounter for screening mammogram for breast cancer documented in this encounter Results * Mammo Screening Cad and Edin Bilateral (01/08/2019 9:42 AM EDT) Anatomical Region Laterality Modality Breast Bilateral Mammography Narrative 01/08/2019 9:59 AM EDT EXAMINATION: MAMMO SCREENING CAD AND EDIN BILATERAL REASON FOR EXAM: Screening. History of [...] Kiah Loomis APRN IMG MAMMO ORDERA BLES documented in this encounter Visit Diagnoses Diagnosis Encounter for screening mammogram for breast cancer documented in this encounter Care Teams Electrical Wiring Lineman Relationship Specialty Start Date End Date Lisa Zacarias APRN PCP - General Family Medicine 01/08/19 documented as of this encounter
--- OUTSIDE RECORDS SUMMARY | 2024-02-04 18:39 | XMS_ITS | Encounter Summary ---
Author Organization [facility] [place] [address] Care Team Providers Care Helix Coil Winder Name Role Phone Lisa Zacarias BAUTISTA Primary Care Provider [phone] Encounter Details Date Type Department Care Team (Late st Contact Info) Description 01/08/2019 10:30 AM EDT Office Visit [place] [address] Kiah Loomis APRN [facility] [place] [address] History of breast cancer Social History Tobacco Use Types Packs/Day Years Used Date Smoking Tobacco: Some Days Cigarettes 07 31 Started: 02/25/1985; Last attempted to quit: 02/25/2015 Smokeless Tobacco: Never Alcohol Use Standard Drinks/Week Comments No 0 (1 standard drink = 0.6 oz pur e alcohol) Sex and Gender Information Value Date Recorded Sex Assigned at Not on file Gender Identity Not on file Sexual Orientation Not on file documented as of this encounter Progress Notes * Kiah Loomis APRN - 01/08/2019 10:30 AM EDT Images from the original note were not included. Kelley returns today in surgical follow up of left breast cancer. She is a 63 year old patient of Taniya. Kelley presented for screening mammography in November,. This revealed a concerning lesion in the upper, outer left breast. Additional imaging including mammogram and ultrasound confirmed a solid 8mmlesion. There was also a question of an axillary node. Biopsy of the breast revealed low to intermediate grade IDC which was ER/NE+ and HER2-. ?? MRI was obtained which [...] SH: with 2 daughters. Quit smoking in January, but started up again last year. Retired in August Surgical pathology revealed: DIAGNOSIS CORRECTED REPORT (see Discussion) Specimen (s): A - Left partial mastectomy B - Left axillary sentinel nodes Histologic Type: Invasive ductal carcinoma Tumor Grade: Low (High, Intermediate, Low) [id number] Score: 5 Tubular Differentiation: 1 Mitotic Rate: [...] receptors, and FISH performed on prior bx [id number] - see separate report. pTNM: ---pT1b N1a [...] present No Date of last follow up 01/08/19 Mammogram today: pending A/P 63 yo female doing well after surgery, chemo, radiation for stage II IDC of the left breast. Noevidence of local or systemic recurrence. Plan ongoing annual mammograms- next due in December 2019.She will call with any questions or concerns in the interim. I told Kelley that I will be retiring in May and that her next follow up surgical appointment will be with a new provider.She agrees. documented in this encounter Plan of Treatment Upcoming Encounters Date Type Department Care Team (Late st Contact Info) Description 12/04/2024 11:00 AM EDT Office Visit [place] [address] Roddy Olson MD [facility] [place] [address] documented as of this encounter Visit Diagnoses Diagnosis History of breast cancer Personal history of malignant neoplasm of breast documented in this encounter Care Teams Helix Coil Winder Relationship Specialty Start Date End Date Lisa Zacarias BAUTISTA PCP - General Family Medicine 01/08/19 documented as of this encounter
--- OUTSIDE RECORDS SUMMARY | 2024-02-04 18:39 | XMS_ITS | Encounter Summary ---
Author Organization [facility] [place] [address] Care Team Providers Care Audit Intern Name Role Phone Lisa Zacarias APRN Primary Care Provider [phone] Encounter Details Date Type Department Care Team (Late st Contact Info) Description 08/04/2019 Ancillary Procedure [place] [phone] Giuseppe Shaw MD [facility] [address] [place] [address] Social History Tobacco Use Types Packs/Day Years [...] AM EDT Office [place] [phone] Roddy Olson MD [facility] DR THORACIC SURGERY [place], [place] [id number] documented as of this encounter Procedures Procedure Name Priority Date/Time Associated Diagnosis Comments FILM LIBRARY STORAGE ONLY CT CHEST Routine 08/04/2019 12:00 AM EST documented in this encounter Results * Film Library- Storage Only CT Chest (08/04/2019 12:00 AM EST) Narrative KELLY - 08/21/2019 6:02 PM EST This exam is auto-finalizing. It's purpose is for storage only. Giuseppe Shaw MD IMG FILM LIBRARY ORD ERABLES [place], [place] documented in this encounter Visit Diagnoses Not on filedocumented in this encounter Care Teams Audit Intern Relationship Specialty Start Date End Date Lisa Zacarias APRN PCP - General Family Medicine 01/08/19 documented as of this encounter
--- OUTSIDE RECORDS SUMMARY | 2024-02-04 18:39 | XMS_ITS | Encounter Summary ---
Author Organization [facility] Address [facility] [place] [address] Care Team Providers Care Coin Teller Name Role Phone [employer] [facility] Shruthi BAUM Primary Care Provider [phone] Reason for Visit * Auth/Cert Specialty Diagnoses / Procedures Referred By Saad escobar Referred To Contact Diagnoses 10 yr surv old provation rotary Procedures PRO COLONOSCOPY, DIAGNOSTIC COLONOSCOPY, DIAGNOSTIC Referral ID Status Reason Start Date Expiration Date Visits Re quested Visits Authorized [id number] 1 1 Encounter Details Date Type Department Care Team (Late st Contact Info) Description 08/10/2016 4:00 PM EST - 08/10/2016 5:00 PM EST Surgery [place] [address] Lokesh Sheriff MD [facility] [place] [address] COLONOSCOPY, POLYPECTOMY, REMOVAL LESION BY SNARE (WRVU [...] Sign Reading Time Taken Comments Blood Pressure 145/91 08/10/2016 5:40 PM EST Pulse 73 08/10/2016 5:05 PM EST Temperature - - Respiratory Rate 15 08/10/2016 5:05 PM EST Oxygen Saturation 96% 08/10/2016 5:40 PM EST Inhaled Oxygen Concentration - - Weight - - Height - - Body Mass Index - - documented in this encounter Discharge Instructions * Discharge Instructions* Darci Calhoun RN - 08/10/2016 5:16 PM EST You may have received medication before and/or during your procedure, which affects judgement and reaction time. Do not drive, operate machinery, drink alcoholic beverages, or make important decisions for 24 hours. Be careful on stairs, as you may be unsteady on your feet. You may eat a regular diet as tolerated. Do not smoke if you are alone. IV site -- slight redness, or tenderness is normal, you can use a warm compress. If tenderness and redness increases or foul drainage occurs, please contact your M. D. * Attachments The following attachments cannot be sent through Care Everywhere. * COLON POLYPS (BRUNEIAN) documented in this encounter Medications at Time of Discharge Medication Sig Dispensed Refills Start Date End Date ibuprofen (ADVIL;MOTRIN) 600 mg Tablet Take 1 tablet by mouth every 6 hours as needed for Pain. 40 tablet 11/17/2015 levothyroxine (SYNTHROID) 25 mcg Tablet Take by mouth daily. 0 01/15/2015 loratadine (CLARITIN) 10 mg Tablet Take 10 mg by mouth daily. Reported on 06/12/2016 anastrozole (ARIMIDEX) 1 mg TabletIndications:Malig nant neoplasm of upper-outer quadrant of left female [...] times daily. 60 tablet 1 11/17/2015 04/02/2019 citalopram (CELEXA) 20 mg TabletIndications:Armando lopez neoplasm of left female breast, unspecified site of breast Take 1 tablet by mouth daily. 60 tablet 6 10/28/2015 12/07/2016 ipratropium-albuterol (COMBIVENT RESPIMAT) 20-100 mcg/actuation Mist Inhale [...] 01/15/2015 09/22/2019 documented as of this encounter H&P Notes * Lokesh Sheriff MD - 08/10/2016 3:48 PM EST Patient Name: Kelley Jensen Patient Age: 61 y.o. Birthdate: 1955 Admit date: 08/10/2016 Attending Physician: Lokesh Sheriff MD Gastroenterology & Hepatology Pre-Procedure History and Physical Planned Procedure: Colonoscopy: Indication: screening, exam 2007 with rectal hyperplastic polyps. Patient Active Problem List Diagnosis Code ??? Dietary counseling and surveillance Z71.3 ??? Malignant neoplasm of upper-outer quadrant of left female breast C50.412 ??? Abnormal ultrasound of endometrium R93.5 ??? Obesity E66.9 ??? Abnormal endometrial ultrasound R93.5 ??? Former smoker Z87.891 Medications: Reviewed in EDH No Known Allergies Social History/Family History: Reviewed in EDH. No changes Exam: Vitals: 08/10/16 1516 BP: 156/78 Pulse: 72 Resp: 16 GEN: NAD, AAOX3 HEENT: NC/AT dryMM, anicteric Chest: CTAB Heart: RRR, nl s1, s2 Abdomen: normal bowel sounds, soft, non tender Assessment and Plan: Proceed with Colonoscopy: ASA Grade: ASA 2 - Patient with mild systemic disease with no functional limitations Mallampati: II (soft palate, uvula, fauces visible) Sedation plan: Moderate Conscious sedation Risks and benefits of the procedure were discussed with the patient. Consent has been signed. documented in this encounter Plan of Treatment Upcoming Encounters Date Type Department Care Team (Late st Contact Info) Description 12/04/2024 11:00 AM EDT Office Visit [place] [address] Roddy Olson MD [facility] [place] [address] documented as of this encounter Procedures Procedure Name Priority Date/Time Associated Diagnosis Comments SURGICAL PATHOLOGY REPORT Routine 08/10/2016 5:10 PM EST SPECIMEN TO PATHOLOGY Routine 08/10/2016 5:10 PM EST SPECIMEN TO PATHOLOGY Routine 08/10/2016 5:10 PM EST COLONOSCOPY, POLYPECTOMY, REMOVAL LESION BY SNARE (WRVU 4.57) 08/10/2016 4:07 PM EST 10 yr surv old provation rotary COLONOSCOPY Routine 08/10/2016 3:46 PM EST documented in this encounter Results * Surgical Pathology Report (08/10/2016 5:10 PM EST) Final Diagnosis [id number] ?Location: 4; EA07; A The signing pathologist has (i) examined the relevant preparation(s) for the specimen(s) and (ii) rendered or confirmed the diagnosis(es). . ?Surgical Pathology DIAGNOSIS A - Sigmoid and descending colon, ?? polypectomy: Colonic mucosa within normal limits and fecal material. B - Distal sigmoid colon, ?? polypectomy: Minute tubular adenoma. CR-PX Electronically signed by: ??Vaickus MD PhD, Bartolo Dale Verified: ??08/11/2016 ?Pathologist CLINICAL INFORMATION Specimen Submitted: A - Sigmoid and descendin polyps B - Distal sigmoid: 2 polyps Clinical History: Screening Clinical Diagnosis: Same SPECIMEN PROCESSING A - Labeled/Fixativ e: Sigmoid and descendin polyps, formalin. Quantity/Size: Four, ranging from 0.2-0.6 cm. Tissue Description: ??Soft, pink tissues . Sections/Proces sing: (T1) B - Labeled/Fixativ e: Distal sigmoid: 2 polyps, formalin. Quantity/Size: Two, averaging 0.4 cm. Tissue Description: ??Soft, pink tissues . Sections/Proces sing: (T1) ??sns 08/11/2016 4:10 PM EST [facility] GI Biopsy 08/10/2016 5:10 PM EST 08/10/2016 5:10 PM EST GI Biopsy 08/10/2016 5:10 PM EST 08/10/2016 5:10 PM EST Lokesh Sheriff MD PATHOLOGY/CYTOLOG Y ORDERABLES [facility] [place] [address] * Specimen to Pathology (surgical or derm) (08/10/2016 5:10 PM EST) AP Specimen 08/10/2016 5:10 PM EST 08/10/2016 5:10 PM EST Narrative [facility] - 08/10/2016 5:10 PM EST Specimen requisition ordered. ??Separate Pathology report to follow Lokesh Sheriff MD PATHOLOGY/CYTOLOG [place] [address] * Specimen to Pathology (surgical or derm) (08/10/2016 5:10 PM EST) AP Specimen 08/10/2016 5:10 PM EST 08/10/2016 5:10 PM EST Narrative [facility] - 08/10/2016 5:10 PM EST Specimen requisition ordered. ??Separate Pathology report to follow Lokesh Sheriff MD PATHOLOGY/CYTOLOG Y ORDERABLES Performing Organization Address [facility]/State/ZIP Co de Phone Number [facility] [place] [address] * COLONOSCOPY (08/10/2016 3:46 PM EST) COLONOSCOPY [facility] Endoscopy Procedure Date: 08/10/2016 3:46 PM ? Patient Name: Kelley Jensen ? N: [id number] ? Date of : 1955 ? Age: 61 ? Order #: [id number] ? Instrument Name: [id number] ? Procedure: ? Colonoscopy Indications: ? Screening for colorectal malignant ? neoplasm Patient Profile: ? This is a 61 year old female. Refer ? to note in patient chart for ? documentation of history and ? physical. Last Colonoscopy: 2006. Providers: ? Lokesh Sheriff MD, Jose Juan Espinosa ? DARCY Fields, Urmila Ferraro MD: ?Jewels Sorto MD Medicines: ? Midazolam 7 mg IV, Fentanyl 350 ? micrograms IV Complications: ? No immediate complications. Procedure: ? Pre-Anesthesia Assessment: ? - Prior to the procedure, a History ? and Physical was performed, and ? patient medications and allergies ? were reviewed. The patient's ? tolerance of previous anesthesia was ? also reviewed. The risks and benefits ? of the procedure and the sedation ? options and risks were discussed with ? the patient. All questions were ? answered, and informed consent was ? obtained. Prior Anticoagulants: The ? patient has taken no previous ? anticoagulant or antiplatelet agents. ? ASA Grade Assessment: II - A patient ? with mild systemic disease. After ? reviewing the risks and benefits, the ? patient was deemed in satisfactory ? condition to undergo the procedure. ? The procedure, indications, benefits, ? risks and alternatives were explained ? to the patient. Specifically ? discussed were potential ? complications including, but not ? limited to, bleeding, perforation, ? infection, missing a cancer, and ? adverse medication reactions. The ? patient was placed in the left ? lateral decubitus position, and a ? digital rectal exam was performed. ? The Colonoscope was inserted in the ? anus and under direct visualization, ? advanced to the terminal ileum, with ? identification of the appendiceal ? orifice and IC valve. Careful ? inspection was made as the ? colonoscope was withdrawn. The ? colonoscopy was somewhat difficult ? due to a tortuous colon. The patient ? tolerated the procedure well. The ? quality of the bowel preparation was ? evaluated using the BBPS ([place] ? Bowel Preparation Scale) with scores ? of: Right Colon = 3 (entire mucosa ? seen well with no residual staining, ? small fragments of stool or opaque ? liquid), Transverse Colon = 3 (entire ? mucosa seen well with no residual ? staining, small fragments of stool or ? opaque liquid) and Left Colon = 3 ? (entire mucosa seen well with no ? residual staining, small fragments of ? stool or opaque liquid). The total ? BBPS score equals 9. The terminal ? ileum, ileocecal valve, appendiceal ? orifice, and rectum were ? photographed. Scope withdrawal time ? was 20 minutes. ? Findings: ? The perianal and digital rectal examinations were ? normal. ? Many small-mouthed diverticula were found in the ? sigmoid colon and descending colon. The sigmoid and ? descending colon were tortuous and redundant ? resulting in looping of the colonoscope. ? The terminal ileum appeared normal. ? Three polyps were found in the sigmoid colon and ? descending colon. The polyps were small in size. ? These polyps were removed with a cold snare. ? Resection and retrieval were complete. ? Two polyps were found in the sigmoid colon. The ? polyps were diminutive in size. These polyps were ? removed with a cold biopsy forceps. Resection and ? retrieval were complete. ? Non-bleeding internal hemorrhoids were found during ? retroflexion and during endoscopy. ? Impression: ?- Non-bleeding internal hemorrhoids. ? - Diverticulosis in the sigmoid colon ? and in the descending colon. ? - Two diminutive polyps in the ? sigmoid colon, removed with a cold ? biopsy forceps. Resected and ? retrieved. ? - Three small polyps in the sigmoid ? colon and in the descending colon, ? removed with a cold snare. Resected ? and retrieved. ? - The examined portion of the ileum ? was normal. Recommendation: ?- Await pathology results. ? - Repeat colonoscopy for surveillance ? based on pathology results. ? Attending Participation: ? I personally performed the entire procedure. ? I was present during the intraservice time as ? documented by the sedation RN. ? Dr. Richie Sheriff ___ Lokesh Sheriff MD 08/10/2016 5:17:09 PM Number of Addenda: 0 Note Initiated On: 08/10/2016 3:46 PM PROVATION 08/10/2016 3:46 PM EST Jewels Sorto APRN GENERAL SURGICAL ORD ERABLES [employer]OVATION documented in this encounter Visit Diagnoses Not on filedocumented in this encounter Administered Medications Inactive Administered Medications - up to 3 most recent administrations Medication Order MAR Action Action Date Dose Rate Site fentaNYL 50 mcg/mL multi-dose injection ONCE PRN, Starting on Jayshree 08/10/16 at 1610, Until Jayshree 08/10/16 at 2008, Intra-Operative (Intra-Procedure), Routine Given 08/10/2016 4:35 PM EST 50 mcg Right Arm Given 08/10/2016 4:32 PM EST 50 mcg Ri ght Arm Given 08/10/2016 4:29 PM EST 50 mcg Ri ght Arm lactated ringers infusion 100 mL/hr, Intravenous, CONTINUOUS, Starting on Jayshree 217 at 1530, Until Jayshree 08/10/16 at 1808, Endoscopy (Day of Procedure) New Bag 08/10/2016 3:30 PM EST 100 mL/hr 100 mL/hr midazolam (PF) (VERSED) 1 mg/mL multi-dose injection ONCE PRN, Starting on Jayshree 08/10/16 at 1610, Until Jayshree 08/10/16 at 2008, Intra-Operative (Intra-Procedure), Routine Given 08/10/2016 4:35 PM EST 1 mg Right Arm Given 08/10/2016 4:32 PM EST 1 mg Ri ght Arm Given 08/10/2016 4:29 PM EST 1 mg Ri ght Arm documented in this encounter Active and Recently Administered Medications Times are shown in EST. Continuous Medication Order 08/08/2016 08/09/2016 08/10/2016 lactated ringers infusion (CANCELED) 100 mL/hr, Intravenous, CONTINUOUS, Starting on Jayshree 08/10/16 at 1530, Until Jayshree 08/10/16 at 1808, Endoscopy (Day of Procedure) 1530 (New Bag - Prov ider: Cary Alvarez RN) PRN Medication Order 08/08/2016 08/09/2016 08/10/2016 fentaNYL 50 mcg/mL multi-dose injection (CANCELED) ONCE PRN, Starting on Jayshree 08/10/16 at 1610, Until Jayshree 08/10/16 at 2008, Intra-Operative (Intra-Procedure), Routine 1610 (Given - Provid er: Jose Juan Fields RN - Comment: start moderate sedation)1613 (Given - Provider: Jose Juan Fields RN - Comment: awake and alert after 1st dose and 3 minutes)1615 (Given - Provider: Jose Juan Fields RN - Comment: sleepy but awake and talking after 2nd dose and 3 more minutes)1626 (Given - Provider: Jose Juan Fields RN - Comment: awakened by time out process)1629 (Given - Provider: Jose Juan Fields RN - Comment: grimmacing and moaning with muscle tension)1632 (Given - Provider: Jose Juan Fields RN - Comment: continues grimmacing and moaning with muscle tension)1635 (Given - Provider: Jose Juan Fields RN - Comment: continues intermittent grimmace maoning and muscle tension) midazolam (PF) (VERSED) 1 mg/mL multi-dose injection (CANCELED) ONCE PRN, Starting on Jayshree 08/10/16 at 1610, Until Jayshree 08/10/16 at 2008, Intra-Operative (Intra-Procedure), Routine 1610 (Given - Provid er: Jose Juan Fields RN - Comment: see fentanyl same time)1613 (Given - Provider: Jose Juan Fields RN - Comment: see fentanyl same time)1615 (Given - Provider: Jose Juan Fields RN - Comment: see fentanyl same time)1626 (Given - Provider: Jose Juan Fields RN - Comment: see fentanyl same time)1629 (Given - Provider: Jose Juan Fields RN - Comment: see fentanyl same time)1632 (Given - Provider: Jose Juan Fields RN - Comment: see fentanyl same time)1635 (Given - Provider: Jose Juan Fields RN - Comment: see fentanyl same time) documented in this encounter Care Teams Coin Teller Relationship Specialty Start Date End Date Jewels Sorto APRN PCP - General 05/24/10 01/09/18 documented as of this encounter
--- OUTSIDE RECORDS SUMMARY | 2024-02-04 18:39 | XMS_ITS | Encounter Summary ---
Author Organization [facility] Address [facility] [place] [address] Care Team Providers Care Parking Manager Name Role Phone NoreenLatishaandreas Hawkins APRN Primary Care Provider [phone] Encounter Details Date Type Department Care Team (Late st Contact Info) Description 01/01/2018 3:20 PM EDT - 01/01/2018 11:59 PM EDT Hospital En[place] [id number] Kiah Loomis APRN [facility] [place] [address] Encounter for screening mammogram for breast cancer [...] mg by mouth daily. Reported on 06/12/2016 CHANTIX STARTING MONTH BOX 0.5 mg (11)- 1 mg (42) Tablets, Dose PackIndications:Maligna nt neoplasm of upper-outer quadrant of left breast in female, estrogen receptor positive Take 1 each by mouth See Admin Instructions. 53 tablet 07/09/2017 09/22/2019 anastrozole (ARIMIDEX) 1 mg TabletIndications:Malharsha nant neoplasm of upper-outer quadrant of left breast in female, estrogen receptor positive Take 1 tablet by mouth daily. 90 tablet 3 02/12/2017 03/15/2018 acetaminophen (TYLENOL) 650 mg Tablet Sustained Release [...] needed for Wheezing. Reported on 12/14/2016 11/17/2019 hydrochlorothiazide (HYDRODIURIL) 25 mg Tablet Take 25 mg by mouth daily. 07/22/2018 simvastatin (ZOCOR) 40 mg Tablet Take 40 mg by mouth nightly. 0 01/15/2015 09/22/2019 documented as of this encounter Plan of Treatment Upcoming Encounters Date Type Department Care Team (Late st Contact Info) Description 12/04/2024 11:00 AM EDT Office [place] [id number] Roddy Olson MD [facility] [place] [address] documented as of this encounter Procedures Procedure Name Priority Date/Time Associated Diagnosis Comments MAMMO SCREENING CAD AND JOSE BILATERAL Routine 01/01/2018 3:35 PM EDT Encounter for screening mammogram for breast cancer documented in this encounter Results * Mammo Screening Cad and Jose Bilateral (01/01/2018 3:35 PM EDT) Anatomical Region Laterality Modality Breast Bilateral Mammography Narrative 01/01/2018 3:42 PM EDT Bilateral mammography Reason for exam: screen hx of left breast ca Technique: CC and MLO views were obtained of each breast using standard 2-D mammography as well as 3-D tomosynthesis. Computer aided detection was used. Comparison: This is compared with prior images. Findings: The breasts are heterogeneously dense, which may obscure small masses. There are no suspicious microcalcifications, masses, or areas of distortion. The pattern is stable. Left breast postsurgical change and benign-appearing fat necrosis. Conclusion: No mammographic evidence of malignancy. Recommendation: Routine screening. BI-RADS Category 2: Benign findings. * ??[employer] and The Society of [...] earlier screening and breast MRI are appropriate. Kiah RIVERA MAMMO ORDERA BLES documented in this encounter Visit Diagnoses Diagnosis Encounter for screening mammogram for breast cancer documented in this encounter Care Teams Parking Manager Relationship Specialty Start Date End Date Jewels Sorto APRN PCP - General 05/24/10 01/09/18 documented as of this encounter
--- OUTSIDE RECORDS SUMMARY | 2024-02-04 18:39 | XMS_ITS | Encounter Summary ---
Author Organization [facility] [place] [address] Care Team Providers Care Aquacultural Worker Supervisor Name Role Phone Jewels Sorto APRN Primary Care Provider [phone] Reason for Visit * Reason Comments Breast Cancer Encounter Details Date Type Department Care Team (Late st Contact Info) Description 12/14/2016 1:30 PM EDT Office Visit Hematology/Oncology at [address] [phone] Hector Carey MD [address] [place] [address] Malignant neoplasm of upper-outer quadrant of left female breast Social History Tobacco Use Types Packs/Day Years [...] Sign Reading Time Taken Comments Blood Pressure 132/62 12/14/2016 1:43 PM EDT Pulse 71 12/14/2016 1:43 PM EDT Temperature 36.6 ??C (97.9 ??F) 12/14/2016 1:43 PM ED T Respiratory Rate 16 12/14/2016 1:43 PM EDT Oxygen Saturation 97% 12/14/2016 1:43 PM EDT Inhaled Oxygen Concentration - - Weight 92.5 kg (204 lb) 12/14/2016 1:43 PM EDT Height 168.8 cm (5' 6.46) 12/14/2016 1:43 PM ED T copied Body Mass Index 32.48 12/14/2016 1:43 PM EDT documented in this encounter Progress Notes * Hector Carey MD - 12/14/2016 1:30 PM EDT Diagnosis: 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 The tumor was 0.7 cm, low-grade, ER/IL positive, with 1 of 3 sentinel positive nodes HER-2 was negative. 01/2015 .S/P Dose dense AC followed by T and XRT to breast, now on Arimidex x 15 yrs SUBJECTIVE: Kelley comes in today for follow up on her breast cancer. It has been a couple of years since her adjuvant treatment was completed and overall she is doing well. She has been having a bit of problems with swelling in her ankles and because of that, when she was seen by radiation oncology they ordered a venous Doppler study on her lower leg. There was no evidence of clot. She notes that her ankles are frequently fairly normal in the mornings when she gets up, but she is up on her feet and sitting down with her feet on floor most of the day and as the day goes on they do tend to swell a bit more. There is a bit of discomfort with that. She is on hydrochlorothiazide 25 mg a day for that and it does help a bit but in talking to her she is really not follow up with her PCP. It is notable today that she has a slightly low potassium. Otherwise she is doing well. No new lumps or bumps. No bone pain. No breathing problems. Review of systems is negative. Past medical history and social history were reviewed from 6 months ago and unchanged. Current Outpatient Prescriptions on File Prior to Visit Medication Sig Dispense Refill ??? citalopram (CELEXA) 20 mg Tablet Take 1 tablet by mouth daily. 60 tablet 6 ??? anastrozole (ARIMIDEX) 1 mg Tablet Take 1 tablet by mouth daily. 90 tablet 3 ??? acetaminophen (TYLENOL) 650 mg Tablet Sustained Release Take 1 tablet by mouth every 8 hours asneeded for Pain. Do not exceed 6 tabs in 24 hours (Patient not taking: Reported on 08/28/2016) ??? ibuprofen (ADVIL;MOTRIN) 600 mg Tablet Take 1 tablet by mouth every 6 hours as needed for Pain.40 tablet 0 ??? senna-docusate (PERICOLACE) 8.6-50 mg Tablet Take 1 tablet by mouth 2 times daily. (Patient nottaking: Reported on 12/16/2015) 60 tablet 1 ??? loratadine (CLARITIN) 10 mg Tablet Take 10 mg by mouth daily. Reported on 06/12/2016 ??? ipratropium-albuterol (COMBIVENT RESPIMAT) 20-100 mcg/actuation Mist Inhale 1 puff into the lungs every 6 hours as needed for Wheezing. Reported on 08/28/2016 ??? EMOLLIENT BASE (CREAM BASE TOP) Apply topically. Reported on 08/28/2016 ??? hydrochlorothiazide (HYDRODIURIL) 25 mg Tablet Take 25 mg by mouth daily. ??? levothyroxine (SYNTHROID) 25 mcg Tablet Take by mouth daily. 0 ??? simvastatin (ZOCOR) 40 mg Tablet Take 40 mg by mouth nightly. 0 No current facility-administered medications on file prior to visit. . No Known Allergies The patient is currently on disability from her breast cancer. 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 Neurological: Negative. Hematological: Negative for adenopathy. There were no vitals taken for this visit. Head: Normocephalic, without obvious abnormality, atraumatic Eyes: [...] ?? BIRADS CATEGORY 2: BENIGN FINDINGS ?? Laboratory today shows a white count of 4.93, hemoglobin 13.1, hematocrit 37.9, platelet count 200,000, CMP shows normal electrolytes except for a slight decrease in potassium at 3.2, creatinine is 0.82, calcium is 8.9, bilirubin 0.29, alkaline phosphatase normal at 93, albumin is 3.6. ASSESSMENT/PLAN: Kelley is doing well and there is no evidence of recurrent breast cancer now 2 years after the completion of her chemotherapy. She is doing well on Arimidex 1 mg daily but is having some problems with peripheral edema which is probably secondary to some mild venous insufficiency perhaps. There is no evidence for heart failure, liver problems, nephrotic syndrome, or a venous clot. That being said and by history, the fact that this waxes and wanes makes a more benign etiology likely. She is getting some benefit from hydrochlorothiazide but has some very mild hypokalemia with that. After talking to her today we decided to go ahead and increase her hydrochlorothiazide to 50 mg daily and if she finds that helpful I would go ahead and refill that but put her on some potassium 10 mEq daily. She will let us know if she thinks the higher dose is helping. We will see her back in 6 months' time with lab. documented in this encounter Plan of Treatment Upcoming Encounters Date Type Department Care Team (Late st Contact Info) Description 12/04/2024 11:00 AM EDT Office [place] [address] Roddy Olson MD [facility] [place] [address] documented as of this encounter Visit Diagnoses Diagnosis Malignant neoplasm of upper-outer quadrant of left female breast Malignant neoplasm of upper-outer quadrant of female breast documented in this encounter Care Teams Aquacultural Worker Supervisor Relationship Specialty Start Date End Date Jewels Sorto APRN PCP - General 05/24/10 01/09/18 documented as of this encounter
--- OUTSIDE RECORDS SUMMARY | 2024-02-04 18:39 | XMS_ITS | Encounter Summary ---
Author Organization [facility] [place] [address] Care Team Providers Care Air Traffic Control Manager Name Role Phone Jewels Sorto APRN Primary Care Provider [phone] Encounter Details Date Type Department Care Team (Late st Contact Info) Description 08/30/2016 Telephone Radiation Oncology at [address] [phone] Cristy Gordon RN Social History Tobacco Use Types Packs/Day [...] encounter Miscellaneous Notes * Telephone Encounter - Cristy Gordon RN - 08/30/2016 10:29 AM EST Background: Dr. Eng asked that I call patient to let her know that the ultrasound that she had yesterday did not show any clots. Telephone call to Kelley. Left message with this information on an identifiable voice mail along with our contact information and request for call back if she has any questions or concerns. documented in this encounter Plan of Treatment Upcoming Encounters Date Type Department Care Team (Late st Contact Info) Description 12/04/2024 11:00 AM EDT Office [place] [address] Roddy Olson MD [facility] DR THORACIC [place] [address] documented as of this encounter Visit Diagnoses Not on filedocumented in this encounter Care Teams Air Traffic Control Manager Relationship Specialty Start Date End Date Jewels Sorto APRN PCP - General 05/24/10 01/09/18 documented as of this encounter
--- OUTSIDE RECORDS SUMMARY | 2024-02-04 18:39 | XMS_ITS | Encounter Summary ---
Author Organization [facility] [place] [address] Care Team Providers Care Revenue Stamp Cutter Name Role Phone Jewels Sorto APRN Primary Care Provider [phone] Reason for Visit * Reason Comments Breast Cancer Encounter Details Date Type Department Care Team (Late st Contact Info) Description 12/20/2015 11:30 AM EDT Office Visit Hematology/Oncology at [address] [phone] Hector Carey MD [address] [place] [address] Malignant neoplasm of upper-outer quadrant of [...] Sign Reading Time Taken Comments Blood Pressure 126/86 12/20/2015 11:38 AM EDT Pulse 73 12/20/2015 11:38 AM EDT Temperature 36.6 ??C (97.9 ??F) 12/20/2015 11:38 AM E DT Respiratory Rate 20 12/20/2015 11:38 AM EDT Oxygen Saturation 97% 12/20/2015 11:38 AM EDT Inhaled Oxygen Concentration - - Weight 93.7 kg (206 lb 8 oz) 12/20/2015 11:38 AM EDT Height 168.8 cm (5' 6.46) 12/20/2015 11:38 AM E DT copied Body Mass Index 32.87 12/20/2015 11:38 AM EDT documented in this encounter Progress Notes * Hector Carey MD - 12/20/2015 12:04 PM EDT Diagnosis: 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 The tumor was 0.7 cm, low-grade, ER/UT positive, with 1 of 3 sentinel positive nodes HER-2 was negative. 01/2015 .S/P Dose dense AC followed by T and XRT to breast, now on Arimidex x 15 yrs Subjective: Kelley comes in today for followup. A month ago when we saw her, she finally decided to give Arimidex a try. She is here today for followup and is pleased to tell me she has had no ill effects whatsoever with the pill. She is not having any hot flashes, no difficulty at all. Additionally, since starting Celexa, her mood is back to normal and she is now going to go out looking for part-time work. She is in great spirits and very optimistic about the future. We did spend some time discussing the new data that recommends 15 years of an aromatase inhibitor and she certainly, at age 60, would be a candidate for that. Past medical history and social history were reviewed from 8 weeks ago and unchanged. Current Outpatient Prescriptions on File Prior to Visit Medication Sig Dispense Refill ??? anastrozole (ARIMIDEX) 1 mg Tablet Take 1 tablet by mouth daily. 30 tablet 11 ??? acetaminophen (TYLENOL) 650 mg Tablet Sustained Release Take 1 tablet by mouth every 8 hours asneeded for Pain. Do not exceed 6 tabs in 24 hours ??? ibuprofen (ADVIL;MOTRIN) 600 mg Tablet Take 1 tablet by mouth every 6 hours as needed for Pain.40 tablet 0 ??? loratadine (CLARITIN) 10 mg Tablet Take 10 mg by mouth daily. ??? citalopram (CELEXA) 20 mg Tablet Take 1 tablet by mouth daily. 60 tablet 6 ??? ipratropium-albuterol (COMBIVENT RESPIMAT) 20-100 mcg/actuation Mist Inhale 1 puff into the lungs every 6 hours as needed for Wheezing. ??? hydrochlorothiazide (HYDRODIURIL) 25 mg Tablet Take 25 mg by mouth daily. ??? levothyroxine (SYNTHROID) 25 mcg Tablet Take by mouth daily. 0 ??? simvastatin (ZOCOR) 40 mg Tablet Take 40 mg by mouth nightly. 0 ??? senna-docusate (PERICOLACE) 8.6-50 mg Tablet Take 1 tablet by mouth 2 times daily. (Patient nottaking: Reported on 12/16/2015) 60 tablet 1 ??? EMOLLIENT BASE (CREAM BASE TOP) Apply topically. Jeans Cream. Apply to area of radiation twice a day but no less than 2 hours before a treatment. No current facility-administered medications on file prior to visit. . No Known Allergies The patient is currently on disability from her breast cancer. 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 Hematological: Negative for adenopathy. BP 126/86 (Patient Position: Sitting) Pulse 73 Temp 36.6 ??C (97.9 ??F) (Oral) Resp 20 Ht 168.8 cm (5' 6.46) Comment: copied Wt 93.7 kg (206 lb 8 oz) SpO2 97% BMI 32.87 kg/m2 Head: Normocephalic, without obvious abnormality, atraumatic [...] Six lymph nodes negative for malignancy (0/6). Review of her laboratory today shows a normal white count of 5.53, hemoglobin of 13.2, hematocrit of 37.5, platelets of 234, absolute neutrophil count of 3.43. CMP is normal with normal electrolytes, creatinine of 0.75, calcium of 9.0, and ALP is 90. Assessment/Plan: Kelley is doing well and has finally recovered from her chemotherapy. Psychologically, she is doing better as well and she is tolerating the aromatase inhibitor without any difficulty. As noted, we talked about the data about 15 years of an aromatase inhibitor and the improvement in contralateral breast cancer and even a small improvement in return of the original cancer that is seen with prolonged therapy. She has no objections to considering that. We will go ahead and continue her on the Arimidex 1 mg daily and see her back in six months' time with a CBC and CMP. She will call if there are issues or problems in the interim. documented in this encounter Plan of Treatment Upcoming Encounters Date Type Department Care Team (Late st Contact Info) Description 12/04/2024 11:00 AM EDT Office [place] [address] Roddy Olson MD [facility] DR THORACIC [place] [address] documented as of this encounter Visit Diagnoses Diagnosis Malignant neoplasm of upper-outer quadrant of left female breast Malignant neoplasm of upper-outer quadrant of female breast documented in this encounter Care Teams Revenue Stamp Cutter Relationship Specialty Start Date End Date Jewels Sorto APRN PCP - General 05/24/10 01/09/18 documented as of this encounter
--- OUTSIDE RECORDS SUMMARY | 2024-02-04 18:39 | XMS_ITS | Encounter Summary ---
Author Organization [facility] [place] [address] Care Team Providers Care Belting Cutter Name Role Phone Amnia Mckeon Primary Care Provider + Reason for Visit * Reason Comments Radiation Follow-up breast cancer Encounter Details Date Type Department Care Team (Late st Contact Info) Description 02/14/2018 1:45 PM EDT Office Visit Radiation Oncology at [address] [phone] Ana Paula Nava APR[address] [place] [address] Malignant neoplasm of left breast in female, estrogen receptor positive, unspecified site of breast Social History Tobacco Use Types Packs/Day [...] Sign Reading Time Taken Comments Blood Pressure 124/63 02/14/2018 2:02 PM EDT Pulse 83 02/14/2018 2:02 PM EDT Temperature 36.7 ??C (98.1 ??F) 02/14/2018 2:02 PM ED T Respiratory Rate 16 02/14/2018 2:02 PM EDT Oxygen Saturation 96% 02/14/2018 2:02 PM EDT Inhaled Oxygen Concentration - - Weight 83.6 kg (184 lb 3.2 oz) 02/14/2018 2:02 P M EDT Height 167.6 cm (5' 6) 02/14/2018 2:02 PM EDT Body Mass Index 29.73 02/14/2018 2:02 PM EDT documented in this encounter Progress Notes * Ana Paula Nava, FIRE RANGER - 02/14/2018 1:45 PM EDT Images from the original note were not included. Patient ID: Kelley Jensen is a 62 y.o. female with breast ca, L, IDC, low gr, ER+ID+, [id number]-, s/p lumpectomy & SNB, pT1b pN1a, stage II, s/p adjuvant chemo with AC followed by taxol which was completed on 08/16/2015. She was treated with adjuvant radiation therapy for a total dose of 60.4 Gy which was completed on 10/22/2015. She continues on hormone therapy with anastrozole. She is in clinic for scheduled followup and to review her survivor care plan. HPI 59 y/o f who underwent screening mmg which showed abnlty in L breast. ?? [facility] [place] & US from 12/16/14, 12/04/14, 12/20/12: Suspicious solid mass @ 2:00 in L breast & morphologically abnl ax lymph node. ? 01/12/15 US guided needle bxs L breast lesion #1 @ 1 o'clock. ?? Path: IDC, low to intermed gr, ER+ID+, Tbd2sta-. ?? 01/28/[address] Cruz, w/exam showing no palpable breast mass/adenopathy. ?? 02/02/15 CT ch: B centrilobular emphysematous dz. 8 mm hypodense focus in L lobe liver, likely small cyst/hemangioma. ? 02/08/15 MRI B Breasts: L breast lesion #1, BX PROVEN MALIG, 8 x 7 x 8 mm @ 1-2 o'clock. L breast lesion #2, SUSPICIOUS ABNLTY, 12 x 7 x 11 mm, @ 9-10 o'clock. L breast lesion #3, INCOMPLETE ASSESSMENT, 11 x 8 x 11 mm, @ 1-2 o'clock. L ax lymph node, INCOMPLETE ASSESSMENT, 8 mm, w/o definite hi. Rbreast lesion #1, INCOMPLETE ASSESSMENT, 7 x 6 x 8 mm, @ 2 o'clock. OTHER FINDINGS: 9 mm T2 hyperintense lesion w/in liver, most consistent w/hemangioma. L AXILLA: Visualization adequate, 1 suspicious node, 8 mm. R AXILLA: Visualization adequate, no suspicious node. ? 02/12/15 L mmg & L ax w/B breast US: The additional lesions detected @ MRI in breasts (includingR breast) are sonographically consistent w/benign fibroadenomata & retrospectively visualized back to mmg from 2012 consistent w/benign process. Morphologically abnl L ax lymph node. ? 02/16/15 NLOC L breast lumpectomy @ 1 o'clock w/inclusion of underlying fascia & NLOC of suspicious L ax node @ 1 o'clock w/SNB. No palpable adenopathy excepting the suspicious NLOC'd node. Tissuererrangement to close space & bx cavity clips placed for rad onc prior to closure. Rearranged tissue 7 x 6 cm. Specimen mmg showed mass, bx clip & loc wire. ?? Path: IDC, low gr, 0.7 cm, +DCIS (minor), no ALI, RM involved by invasive ca @ lateral RM, w/reexcision of lat RM neg; RM neg for DCIS, closest RM to DCIS = 0.2 cm; 3 ax lymph nodes (all sentinel, 1 + for met [macromet, largest deven deposit 1.0 cm, no ALBERTO], 2 nodes neg); pT1b pN1a. ?? 02/24/15 Comprehensive Breast Program Tumor Bd: No indication for ALND given Z11 parameters. Rec MedOnc & Rad Onc consults. ?? 03/10/15 fu w/Dr. Cruz. ?? 03/15/[address] Carey for systemic tx. ?? [facility] ONCOLOGY (AMB) 03/29/2015 Day, Cycle Day 1, Cycle 1 cyclophosphamide (CYTOXAN) IV 600 mg/m2/dose = 1,242 mg DOXOrubicin (ADRIAMYCIN) IV 60 mg/m2/dose = 124.2 mg PACLitaxel (TAXOL) IV pegfilgrastim (NEULASTA) SubQ 6 [facility] 04/15/2015 Day, Cycle Day 1, Cycle 2 cyclophosphamide (CYTOXAN) IV 600 mg/m2/dose = 1,242 mg DOXOrubicin (ADRIAMYCIN) IV 60 mg/m2/dose = 124.2 mg PACLitaxel (TAXOL) IV pegfilgrastim (NEULASTA) SubQ 6 mg [facility] 04/29/2015 Day, Cycle Day 1, Cycle 3 cyclophosphamide (CYTOXAN) IV 600 mg/m2/dose = 1,242 mg DOXOrubicin (ADRIAMYCIN) IV 60 mg/m2/dose = 124.2 mg PACLitaxel (TAXOL) IV pegfilgrastim (NEULASTA) SubQ 6 mg [facility] 05/13/2015 Day, Cycle Day 1, Cycle 4 cyclophosphamide (CYTOXAN) IV 600 mg/m2/dose = 1,242 mg DOXOrubicin (ADRIAMYCIN) IV 60 mg/m2/dose = 124.2 mg PACLitaxel (TAXOL) IV pegfilgrastim (NEULASTA) SubQ 6 mg [facility] 05/31/2015 06/07/2015 Day, Cycle Day 1, Cycle 1 Day 8, Cycle 1 cyclophosphamide (CYTOXAN) IV DOXOrubicin (ADRIAMYCIN) IV PACLitaxel (TAXOL) IV 80 mg/m2/dose = 166 mg 80 mg/m2/dose = 166 mg pegfilgrastim (NEULASTA) SubQ [facility] 06/14/2015 06/21/2015 Day, Cycle Day 15, Cycle 1 Day 1, Cycle 2 cyclophosphamide (CYTOXAN) IV DOXOrubicin (ADRIAMYCIN) IV PACLitaxel (TAXOL) IV 80 mg/m2/dose = 166 mg 80 mg/m2/dose = 166 mg pegfilgrastim (NEULASTA) SubQ [facility] 06/28/2015 07/05/2015 Day, Cycle Day 8, Cycle 2 Day 15, Cycle 2 cyclophosphamide (CYTOXAN) IV DOXOrubicin (ADRIAMYCIN) IV PACLitaxel (TAXOL) IV 80 mg/m2/dose = 166 mg 80 mg/m2/dose = 166 mg pegfilgrastim (NEULASTA) SubQ [facility]OG[facility] (AMB) 07/12/2015 07/19/2015 Day, Cycle Day 1, Cycle 3 Day 8, Cycle 3 cyclophosphamide (CYTOXAN) IV DOXOrubicin (ADRIAMYCIN) IV PACLitaxel (TAXOL) IV 80 mg/m2/dose = 166 mg 80 mg/m2/dose = 166 mg pegfilgrastim (NEULASTA) SubQ [facility] ONCOLOGY (AMB) 07/26/2015 08/02/2015 Day, Cycle Day 15, Cycle 3 Day 1, Cycle 4 cyclophosphamide (CYTOXAN) IV DOXOrubicin (ADRIAMYCIN) IV PACLitaxel (TAXOL) IV 80 mg/m2/dose = 166 mg 80 mg/m2/dose = 166 mg pegfilgrastim (NEULASTA) SubQ [facility] ONCOLOGY (AMB) 08/09/2015 08/16/2015 Day, Cycle Day 8, Cycle 4 Day 15, Cycle 4 cyclophosphamide (CYTOXAN) IV DOXOrubicin (ADRIAMYCIN) IV PACLitaxel (TAXOL) IV 80 mg/m2/dose = 166 mg 80 mg/m2/dose = 166 mg pegfilgrastim (NEULASTA) SubQ Her completed course of xrt is summarized as follows: 09/06/15-10/22/15, 50.4 Gy/28 fxs to L supraclavicular fossa & L axilla with 10 MV Xray external beam & to L breast with 6 & 10 MV Xray external beam, followed by volume reduction & 10 Gy/5 fxs to lumpectomy bed with 10 MV Xray external beam, boosting lumpectomy bed to 60.4 Gy/33 fxs. Deep inspiration breath hold (DIBH) was used to treat L supraclavicular fossa, L axilla & L breast. Free breathing technique was used for lumpectomy bed boost. 3D xrt used throughout treatment. ?? 10/27/[address] Baltazar for thickened [...] not enough material present in previous bx ([id number]) to perform mi smatch repair IHC. Cytopath: Pelvic wash neg for malignancy 10/2015-- start arimidex Treatment summary/survivor care plan reviewed with patient and copy given to her and copy sent to PCP 02/14/2018 Breast Cancer Notes BREAST CANCER NOTES 02/13/2018 Method of Cancer Detection abnormal mammogram of the left breast Menopausal Status at Diagnosis post-menopausal Date of Diagnostic Biopsy 01/12/2015 Local Surgery Lumpectomy done at [facility] 02/16/2015 Axillary Management Mcdonough nodes alone Total Number of Nodes Removed 3 Total Nodes Positive 1 was positive for macromet measuring 1.0 cm with no extranodal extension Date of Last Surgical Procedure 02/16/2015 Histology Invasive ductal carcinoma No angiolymphatic invasion No perineural invasion Grade Low grade Tumor Staging from Staging System [id number] T1= tumor that measures less than 2 cm N1= one to three positive lymph nodes Stage 2 --good prognosis Size of Primary Malignancy 0.7 cm Margin negative with re-excision ER--estrogen receptor positive ID-progesterone receptor positive HER-2 negative Endocrine Therapy Recommended [...] not enough material present in previous bx ([id number]) to perform mi smatch repair IHC. Cytopath: Pelvic wash neg for malignancy. ?? Late effects of treatment DEXA ordered Surveillance mammogram 01/01/2018--no mammographic evidence of malignancy Lifetime Dose Tracking: ??? doxorubicin: 238.563 mg/m2 (496.8 mg) = 59.64 % of the maximum lifetime dose of 400 mg/m2 Patient Active Problem List Diagnosis Code ??? Dietary counseling and surveillance Z71.3 ??? Malignant neoplasm of upper-outer quadrant of left female breast C50.412 ??? Abnormal ultrasound of endometrium R93.5 ??? Obesity E66.9 ??? Abnormal endometrial ultrasound R93.5 ??? Former smoker Z87.891 .usrg No Known Allergies Medications 02/14/18 1530 Medication Sig Taking? cephalexin (KEFLEX) 500 mg Capsule Take 500 mg by mouth 4 times daily. Yes CHANTIX STARTING MONTH BOX 0.5 mg (11)- 1 mg (42) Tablets, Dose Pack Take 1 each by mouth See AdminInstructions. Yes anastrozole (ARIMIDEX) 1 mg Tablet Take 1 tablet by mouth daily. Yes acetaminophen (TYLENOL) 650 mg Tablet Sustained Release Take 1 tablet by mouth every 8 hours as needed for Pain. Do not exceed 6 tabs in 24 hours Yes ibuprofen (ADVIL;MOTRIN) 600 mg Tablet Take 1 tablet by mouth every 6 hours as needed for Pain. Yes hydrochlorothiazide (HYDRODIURIL) 25 mg Tablet Take 25 mg by mouth daily. Yes levothyroxine (SYNTHROID) 25 mcg Tablet Take by mouth daily. Yes simvastatin (ZOCOR) 40 mg Tablet Take 40 mg by mouth nightly. Yes citalopram (CELEXA) 20 mg Tablet Take 1 tablet by mouth daily. Patient not taking: Reported on 02/14/2018 senna-docusate (PERICOLACE) 8.6-50 mg Tablet Take 1 tablet by mouth 2 times daily. Patient not taking: Reported on 01/10/2018 loratadine (CLARITIN) 10 mg Tablet Take 10 mg by mouth daily. Reported on 06/12/2016 ipratropium-albuterol (COMBIVENT RESPIMAT) 20-100 mcg/actuation Mist Inhale 1 puff into the lungs every 6 hours as needed for Wheezing. Reported on 12/14/2016 Review and update of social history today Social Supports: pt has been to her Daniel for 12 years. She has 2 daughters and both live nearby. ?? Living Situation/Daily Activities/Transportation: pt and manage the daily chores and activities. She does not have any issues with transportation. ?? 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 Pt indicate they are just managing financially. Her is current on disability due to a hand injury ?? Advance Directives: Pt has not completed her advance directives. She does have the document and plans to review it. ? Adjustment to Illness/Mental Health Issues: Pt indicated she is coping generally well and indicatesthat she has good support from her family. ?? Interim History: Mrs Jensen indicates that she was treated for a lower leg cellulitis 1-2 months ago and that otherwise she has generally been well. Time from completion of treatment 2 years 4 months Problems at primary site (breast) none Metastatic symptoms: none Pain occ twinge that lasts seconds near incision site Breast tenderness none Skin changes breast none Lymphedema none Persistent cough none Persistent headaches none ROM restriction none Functional status Independent with all ADL and IADL Smoking yest --2-3 cigarettes a day. She has started Chantix and is motivated to stop smoking Activity/exercise Has been kyaking Hormone therapy side effects Some arthralgias Misc No hot flashes from hormone therapy A DEXA was ordered but was never scheduled so she is awaiting this Review of Systems Constitutional: Negative. Negative for activity change, appetite change, diaphoresis, fever and unexpected weight change. Fatigue in part due to work schedule (patient works nights) HENT: Negative. Respiratory: Negative. Negative for cough, chest tightness and shortness of breath. Cardiovascular: Positive for leg swelling. Negative for chest pain. Recently treated for cellulitis in lower extremity --this has resolved Gastrointestinal: Negative. Negative for abdominal pain. Patient had colonoscopy in the past No GI issues Genitourinary: Negative. + vaginal dryness--uses lubricants Musculoskeletal: Some upper back discomfort and will discuss with PCP Skin: Negative. Does not use sun screen Neurological: Negative. Negative for dizziness, weakness and headaches. Hematological: Negative. Psychiatric/Behavioral: Negative. Vitals Office Visit from 02/14/2018 in Radiation Oncology at [facility] Weight 83.6 kg (184 lb 3.2 oz) Height 167.6 cm (5' 6) BSA (Calculated - sq m) 1.97 sq meters BMI (Calculated) 29.73 Temp 36.7 ??C (98.1 ??F) Temp src Oral Heart Rate 83 Heart Rate Source NIBP Resp 16 BP 124/63 BP Location Left arm Patient Position Sitting SpO2 96 % Objective: Physical Exam Constitutional: She is oriented to person, place, and time. She appears well- developed and well-nourished. No distress. HENT: Head: Normocephalic and atraumatic. Eyes: Conjunctivae and EOM are normal. No scleral icterus. Neck: Neck supple. Cardiovascular: Normal rate, regular rhythm and normal heart sounds. Exam reveals no gallop and no friction rub. No murmur heard. Pulmonary/Chest: Effort normal and breath sounds normal. No respiratory distress. She has no wheezes. She has no rales. She exhibits no tenderness. Abdominal: Soft. Bowel sounds are normal. She exhibits no distension and no mass. There is no tenderness. There is no rebound and no guarding. Musculoskeletal: Normal range of motion. She exhibits edema. She exhibits no tenderness. Mild bilateral lower extremity edema Lymphadenopathy: Head (right side): No submental, no submandibular, no tonsillar, no preauricular, no posterior auricular and no occipital adenopathy present. Head (left side): No submental, no submandibular, no tonsillar, no preauricular, no posterior auricular and no occipital adenopathy present. She has no cervical adenopathy. She has no axillary adenopathy. Right: No supraclavicular adenopathy present. Left: No supraclavicular adenopathy present. Neurological: She is alert and oriented to person, place, and time. Coordination normal. Skin: Skin is warm and dry. No rash noted. She is not diaphoretic. No erythema. No pallor. Psychiatric: She has a normal mood and affect. Her behavior is normal. Judgment and thought contentnormal. Vitals reviewed. Breasts ___X_ no nipple discharge, no dryness, no erythema, no tenderness, no lymphedema of L breast or L arm . No breast masses Treated site: ____Right or __X__Left, _X___Breast or Chest wall Telangectasias: _X___None, ____Few; Moderate; Many and confluent Hypopigmentation: __X__None; ____Slight or localized; ____Marked or generalized Hyperpigmentation: __X__None; ____Slight or localized; ____Marked or generalized Fibrosis: __X___None; Increased density; ____Marked increased density + retraction; ____ Very marked Dry skin: ___X_None; ____Asymptomatic; symptomatic; Interferes with ADL Cosmetic Result: __X__ Excellent; Good;____ Fair; ____Poor 01/06/2018-- bilateral mammogram Findings: The breasts are heterogeneously dense, which may obscure small masses. There are no suspicious microcalcifications, masses, or areas of distortion. The pattern is stable. Left breast postsurgical change and benign-appearing fat necrosis. ?? Conclusion: No mammographic evidence of malignancy. ?? Assessment and Plan: Kelley Jensen is a 62 y.o. female with breast ca, L, IDC, low gr, ER+ID+, [id number]-, s/p lumpectomy& SNB, pT1b pN1a, stage II, s/p adjuvant chemo with AC followed by taxol which was completed on08/16/2015. She was treated with adjuvant radiation therapy for a total dose of 60.4 Gy which was completed on 10/22/2015. She continues on hormone therapy with anastrozole. She does have mild arthralgi as which may be due to her AI but this is not a bother to her. She needs to have a DEXA scan. This has not yet been scheduled. We reviewed signs and symptoms of late effect of radiation therapy including tissue fibrosis, need to do regular stretching exercises, need to report edema to breast or arm and any persistent symptoms including persistent cough, headache, skeletal pain, skin changes. We discussed the survivor benefits of regular exercise and weight control. She had a mammogram 12/2017 which showed no evidence of malignancy. We will see her again in one year. She will be seen by medical oncology in the interim. She is to call if she has any questions or concerns. She is to have a repeat mammogram 12/2018. Follow-up for a total of 35 minutes, with 30 minutes of that time spent discussing her current clinical condition, reviewing her Breast Cancer Survivor Care Plan which includes review of her breast cancer history, treatment history, health behaviors to promote wellness, ongoing surveillance, late effects of treatments and symptoms to report as well as planning further management. documented in this encounter Plan of Treatment Upcoming Encounters Date Type Department Care Team (Late st Contact Info) Description 12/04/2024 11:00 AM EDT Office [place] [address] Roddy Olson MD [facility] [place] [address] documented as of this encounter Procedures Procedure Name Priority Date/Time Associated Diagnosis Comments CT SCAN (SCAN) 03/21/2018 12:00 AM EDT documented in this encounter Results * SCAN DOC: CT SCAN (03/21/2018 12:00 AM EDT) Anatomical Region Laterality Modality Other Narrative 03/21/2018 12:00 AM EDT Ordered by an unspecified provider. Scanning Provider MEDIA MGR SCAN EXT O RDR/RSLT documented in this encounter Visit Diagnoses Diagnosis Malignant neoplasm of left breast in female, estrogen receptor positive, unspecified site of breast documented in this encounter Care Teams Belting Cutter Relationship Specialty Start Date End Date Amina Mckeon PA PCP - General Orthopaedic Surgery 01/10/18 07/02/18 documented as of this encounter
--- OUTSIDE RECORDS SUMMARY | 2024-02-04 18:39 | XMS_ITS | Encounter Summary ---
Author Organization [facility] Address [facility] [place] [address] Care Team Providers Care Heating Repair Technician Name Role Phone Unavailable Primary Care Provider Unavailabl e Encounter Details Date Type Department Care Team (Late st Contact Info) Description 07/22/2018 1:00 PM EST Office Visit Hematology/Oncology at [address] [phone] Hallie Chavis APRN [facility] [place] [address] Malignant neoplasm of upper-outer quadrant of left breast in female, estrogen receptor positive Social History Tobacco Use Types Packs/Day Years Used Date Smoking Tobacco: Some Days Cigarettes 30 Started: 02/25/1985; Last attempted to quit: [...] Sign Reading Time Taken Comments Blood Pressure 144/77 07/22/2018 1:06 PM EST Pulse 91 07/22/2018 1:06 PM EST Temperature 36.8 ??C (98.2 ??F) 07/22/2018 1:06 PM ES T Respiratory Rate 18 07/22/2018 1:06 PM EST Oxygen Saturation 99% 07/22/2018 1:06 PM EST Inhaled Oxygen Concentration - - Weight 92.1 kg (203 lb) 07/22/2018 1:06 PM EST Height 168.8 cm (5' 6.46) 07/22/2018 1:06 PM ES T copied Body Mass Index 32.32 07/22/2018 1:06 PM EST documented in this encounter Patient Instructions * Patient Instructions* Hallie Chavis APRN - 07/22/2018 1:00 PM EST She will return in 6 months with labs prior. documented in this encounter Progress Notes * Hallie Chavis APRN - 07/22/2018 1:00 PM EST Diagnosis: 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 The tumor was 0.7 cm, low-grade, ER/MD positive, with 1 of 3 sentinel positive nodes HER-2 was negative. 01/2015 .S/P Dose dense AC followed by T and XRT to breast, now on Arimidex x 15 yrs SUBJECTIVE: Kelley comes in today for her usual followup on her breast cancer. She remains on Arimidex 1 mg daily. She is to stay on the arimidex for a total of 15 years. She is tolerating it well. She continues to do well. She had quit smoking several yrs ago but restarted again this past year. She has now quit smoking since Jun. Review of systems is completely negative Past medical history and social history were reviewed from 6 months ago and unchanged. Current Outpatient Medications on File Prior to [...] 40 mg by mouth nightly. 0 ??? cephalexin (KEFLEX) 500 mg Capsule Take 500 mg by mouth 4 times daily. ??? CHANTIX STARTING MONTH BOX 0.5 mg (11)- 1 mg (42) Tablets, Dose Pack Take 1 each by mouth See Admin Instructions. (Patient not taking: Reported on 07/22/2018) 53 tablet 0 ??? citalopram (CELEXA) 20 mg Tablet Take 1 tablet by mouth daily. (Patient not taking: Reported on02/14/2018) 60 tablet 6 ??? senna-docusate (PERICOLACE) 8.6-50 mg Tablet Take 1 tablet by mouth 2 times daily. (Patient nottaking: Reported on 01/10/2018) 60 tablet 1 ??? loratadine (CLARITIN) 10 mg Tablet Take 10 mg by mouth daily. Reported on 06/12/2016 ??? ipratropium-albuterol (COMBIVENT RESPIMAT) 20-100 mcg/actuation Mist Inhale 1 puff into the lungs every 6 hours as needed for Wheezing. Reported on 12/14/2016 ??? [DISCONTINUED] hydrochlorothiazide (HYDRODIURIL) 25 mg Tablet Take 25 mg by mouth daily. No current facility-administered medications on file prior to visit. . No Known Allergies The patient is currently on disability from her breast cancer. 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 Hematological: Negative for adenopathy. BP 144/77 (Patient Position: Sitting) Pulse 91 Temp 36.8 ??C (98.2 ??F) (Oral) Resp 18 Ht 168.8 cm (5' 6.46) Comment: copied Wt 92.1 kg (203 lb) SpO2 99% BMI 32.32 kg/m?? Head: Normocephalic, without obvious abnormality, atraumatic Eyes: [...] unlabored Chest Wall: No tenderness or deformity breast exam was not repeated today as she had one with general surgery a few days ago Heart: Regular rate and rhythm, S1, S2 normal, no murmur, rub or gallop Abdomen: Soft, non-tender, bowel sounds active all four quadrants, no masses, no organomegaly Extremities: Extremities normal, atraumatic, no cyanosis or [...] Six lymph nodes negative for malignancy (0/6). ?? [facility] 03/29/2015 Day, Cycle Day 1, Cycle 1 cyclophosphamide (CYTOXAN) IV 600 mg/m2/dose = 1,242 mg DOXOrubicin (ADRIAMYCIN) IV 60 mg/m2/dose = 124.2 mg PACLitaxel (TAXOL) IV pegfilgrastim (NEULASTA) SubQ 6 mg [facility]) 04/15/2015 Day, Cycle Day 1, Cycle 2 cyclophosphamide (CYTOXAN) IV 600 mg/m2/dose = 1,242 mg DOXOrubicin (ADRIAMYCIN) IV 60 mg/m2/dose = 124.2 mg PACLitaxel (TAXOL) IV pegfilgrastim (NEULASTA) SubQ 6 mg [facility] ONCOLOGY ([facility]) 04/29/2015 Day, Cycle Day 1, Cycle 3 cyclophosphamide (CYTOXAN) IV 600 mg/m2/dose = 1,242 mg DOXOrubicin (ADRIAMYCIN) IV 60 mg/m2/dose = 124.2 mg PACLitaxel (TAXOL) IV pegfilgrastim (NEULASTA) SubQ 6 mg [facility] ([facility]) 05/13/2015 Day, Cycle Day 1, Cycle 4 cyclophosphamide (CYTOXAN) IV 600 mg/m2/dose = 1,242 mg DOXOrubicin (ADRIAMYCIN) IV 60 mg/m2/dose = 124.2 mg PACLitaxel (TAXOL) IV pegfilgrastim (NEULASTA) SubQ 6 mg [facility] 05/31/2015 06/07/2015 Day, Cycle Day 1, Cycle 1 Day 8, Cycle 1 cyclophosphamide (CYTOXAN) IV DOXOrubicin (ADRIAMYCIN) IV PACLitaxel (TAXOL) IV 80 mg/m2/dose = 166 mg 80 mg/m2/dose = 166 mg pegfilgrastim (NEULASTA) SubQ [facility] ([facility]) 06/14/2015 06/21/2015 Day, Cycle Day 15, Cycle 1 Day 1, Cycle 2 cyclophosphamide (CYTOXAN) IV DOXOrubicin (ADRIAMYCIN) IV PACLitaxel (TAXOL) IV 80 mg/m2/dose = 166 mg 80 mg/m2/dose = 166 mg pegfilgrastim (NEULASTA) SubQ [facility]Y ([facility]) 06/28/2015 07/05/2015 Day, Cycle Day 8, Cycle 2 Day 15, Cycle 2 cyclophosphamide (CYTOXAN) IV DOXOrubicin (ADRIAMYCIN) IV PACLitaxel (TAXOL) IV 80 mg/m2/dose = 166 mg 80 mg/m2/dose = 166 mg pegfilgrastim (NEULASTA) [facility] ([facility]) 07/12/2015 07/19/2015 Day, Cycle Day 1, Cycle 3 Day 8, Cycle 3 cyclophosphamide (CYTOXAN) IV DOXOrubicin (ADRIAMYCIN) IV PACLitaxel (TAXOL) IV 80 mg/m2/dose = 166 mg 80 mg/m2/dose = 166 mg pegfilgrastim (NEULASTA) Sub [facility]COLOGY ([facility]) 07/26/2015 08/02/2015 Day, Cycle Day 15, Cycle 3 Day 1, Cycle 4 cyclophosphamide (CYTOXAN) IV DOXOrubicin (ADRIAMYCIN) IV PACLitaxel (TAXOL) IV 80 mg/m2/dose = 166 mg 80 mg/m2/dose = 166 mg pegfilgrastim (NEULASTA) [facility] ONCOLOGY ([facility]) 08/09/2015 08/16/2015 Day, Cycle Day 8, Cycle 4 Day 15, Cycle 4 cyclophosphamide (CYTOXAN) IV DOXOrubicin (ADRIAMYCIN) IV PACLitaxel (TAXOL) IV 80 mg/m2/dose = 166 mg 80 mg/m2/dose = 166 mg pegfilgrastim (NEULASTA) SubQ Bilateral mammography 01/01/2018 ?? Reason for exam: screen hx of left breast ca ?? Technique: CC and MLO views were obtained of each breast using standard 2-D mammography as well as 3-D tomosynthesis. Computer aided detection was used. ?? Comparison: This is compared with prior images. ?? Findings: The breasts are heterogeneously dense, which may obscure small masses. There are no suspicious microcalcifications, masses, or areas of distortion. The pattern is stable. Left breast postsurgical change and benign-appearing fat necrosis. ?? Conclusion: No mammographic evidence of malignancy. ?? Recommendation: Routine screening. ?? BI-RADS Category 2: Benign findings. ?? ASSESSMENT/PLAN: Kelley is doing well with no evidence of recurrent breast cancer now 3.5 years after her initial diagnosis and 3 years after the completion of her chemotherapy. She is tolerating the Arimidex well and is compliant with the Medication. She will continue on arimidex for a total of 15 yrs. She will return in 6 months with labs. After this coming visit she will have annual visits. She is comfortable with this plan. documented in this encounter Plan of Treatment Upcoming Encounters Date Type Department Care Team (Late st Contact Info) Description 12/04/2024 11:00 AM EDT Office Visit [place] [address] Roddy Olson MD [facility] [place] [address] documented as of this encounter Procedures Procedure Name Priority Date/Time Associated Diagnosis Comments LAB SCAN 07/19/2018 12:00 AM EST LAB SCAN 07/19/2018 12:00 AM EST documented in this encounter Results * SCAN DOC: LAB (07/19/2018 12:00 AM EST) Narrative 07/19/2018 12:00 AM EST Ordered by an unspecified provider. Scanning Provider MEDIA MGR SCAN EXT O RDR/RSLT * SCAN DOC: LAB (07/19/2018 12:00 AM EST) Narrative 07/19/2018 12:00 AM EST Ordered by an unspecified provider. Scanning Provider MEDIA MGR SCAN EXT O RDR/RSLT documented in this encounter Visit Diagnoses Diagnosis Malignant neoplasm of upper-outer quadrant of left breast in female, estrogen receptor positive documented in this encounter
--- OUTSIDE RECORDS SUMMARY | 2024-02-04 18:39 | XMS_ITS | Encounter Summary ---
Author Organization [facility] [place] [address] Care Team Providers Care Laboratory Operations Coordinator Name Role Phone Amina Mckeon Primary Care Provider + Reason for Visit * Reason Comments Breast Cancer Encounter Details Date Type Department Care Team (Late st Contact Info) Description 01/10/2018 2:30 PM EDT Office Visit Hematology/Oncology at [address] [phone] Hector Carey MD [address] [place] [address] Malignant neoplasm of upper-outer quadrant of [...] Sign Reading Time Taken Comments Blood Pressure 135/66 01/10/2018 2:38 PM EDT Pulse 76 01/10/2018 2:38 PM EDT Temperature 36.9 ??C (98.4 ??F) 01/10/2018 2:38 PM ED T Respiratory Rate 16 01/10/2018 2:38 PM EDT Oxygen Saturation 98% 01/10/2018 2:38 PM EDT Inhaled Oxygen Concentration - - Weight 83.5 kg (184 lb) 01/10/2018 2:38 PM EDT Height 168.8 cm (5' 6.46) 01/10/2018 2:38 PM ED T copied Body Mass Index 29.29 01/10/2018 2:38 PM EDT documented in this encounter Progress Notes * Hector Carey MD - 01/10/2018 2:30 PM EDT Diagnosis: 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 The tumor was 0.7 cm, low-grade, ER/FL positive, with 1 of 3 sentinel positive nodes HER-2 was negative. 01/2015 .S/P Dose dense AC followed by T and XRT to breast, now on Arimidex x 15 yrs SUBJECTIVE: Kelley comes in today for her usual followup on her breast cancer. She remains on Arimidex 1 mg daily. She is back to healthy living kayaking riding her bike and even jogging some. She does have an excellent attitude and has not had any new findings lumps or bumps breathing problems or bone problems. Review of systems is completely negative Past medical history and social history were reviewed from 6 months ago and unchanged. Current Outpatient Prescriptions on File Prior to Visit Medication Sig Dispense Refill ??? CHANTIX STARTING MONTH BOX 0.5 mg (11)- 1 mg (42) Tablets, Dose Pack Take 1 each by mouth See Admin Instructions. 53 tablet 0 ??? anastrozole (ARIMIDEX) 1 mg Tablet Take [...] mouth 2 times daily. 60 tablet 1 ??? loratadine (CLARITIN) 10 mg Tablet Take 10 mg by mouth daily. Reported on 06/12/2016 ??? ipratropium-albuterol (COMBIVENT RESPIMAT) 20-100 mcg/actuation Mist Inhale 1 puff into the lungs every 6 hours as needed for Wheezing. Reported on 12/14/2016 ??? 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 ?? [facility] ([facility]) 03/29/2015 Day, Cycle Day 1, Cycle 1 cyclophosphamide (CYTOXAN) IV 600 mg/m2/dose = 1,242 mg DOXOrubicin (ADRIAMYCIN) IV 60 mg/m2/dose = 124.2 mg PACLitaxel (TAXOL) IV pegfilgrastim (NEULASTA) SubQ [facility] 04/15/2015 Day, Cycle Day 1, Cycle 2 cyclophosphamide (CYTOXAN) IV 600 mg/m2/dose = 1,242 mg DOXOrubicin (ADRIAMYCIN) IV 60 mg/m2/dose = 124.2 mg PACLitaxel (TAXOL) IV pegfilgrastim (NEULASTA) SubQ 6 [facility] 04/29/2015 Day, Cycle Day 1, Cycle 3 cyclophosphamide (CYTOXAN) IV 600 mg/m2/dose = 1,242 mg DOXOrubicin (ADRIAMYCIN) IV 60 mg/m2/dose = 124.2 mg PACLitaxel (TAXOL) IV pegfilgrastim (NEULASTA) SubQ 6 mg [facility] 05/13/2015 Day, Cycle Day 1, Cycle 4 cyclophosphamide (CYTOXAN) IV 600 mg/m2/dose = 1,242 mg DOXOrubicin (ADRIAMYCIN) IV 60 mg/m2/dose = 124.2 mg PACLitaxel (TAXOL) IV pegfilgrastim (NEULASTA) SubQ 6 mg [facility]) 05/31/2015 06/07/2015 Day, Cycle Day 1, Cycle 1 Day 8, Cycle 1 cyclophosphamide (CYTOXAN) IV DOXOrubicin (ADRIAMYCIN) IV PACLitaxel (TAXOL) IV 80 mg/m2/dose = 166 mg 80 mg/m2/dose = 166 mg pegfilgrastim (NEULASTA) SubQ [facility] 06/14/2015 06/21/2015 Day, Cycle Day 15, Cycle 1 Day 1, Cycle 2 cyclophosphamide (CYTOXAN) IV DOXOrubicin (ADRIAMYCIN) IV PACLitaxel (TAXOL) IV 80 mg/m2/dose = 166 mg 80 mg/m2/dose = 166 mg pegfilgrastim (NEULASTA) SubQ [facility] 06/28/2015 07/05/2015 Day, Cycle Day 8, Cycle 2 Day 15, Cycle 2 cyclophosphamide (CYTOXAN) IV DOXOrubicin (ADRIAMYCIN) IV PACLitaxel (TAXOL) IV 80 mg/m2/dose = 166 mg 80 mg/m2/dose = 166 mg pegfilgrastim (NEULASTA) SubQ [facility] ([facility]) 07/12/2015 07/19/2015 Day, Cycle Day [...] no evidence of recurrent breast cancer now 3 years after her initial diagnosis and a 2 1/2 years after the completion of her chemotherapy. She is tolerating the Arimidex well and is compliant with the medication. Will continue on that. We did talk about checking a bone density study sometime this coming summer. Will order that today. Call a few days after the study for results. We will see her back in 6 months time with lab sooner if there is issues in the interim documented in this encounter Plan of Treatment Upcoming Encounters Date Type Department Care Team (Late st Contact Info) Description 12/04/2024 11:00 AM EDT Office [place] [address] Roddy Olson MD [facility] [place] [address] documented as of this encounter Procedures Procedure Name Priority Date/Time Associated Diagnosis Comments LAB SCAN 01/09/2018 12:00 AM EDT LAB SCAN 01/09/2018 12:00 AM EDT documented in this encounter Results * SCAN DOC: LAB (01/09/2018 12:00 AM EDT) Narrative 01/09/2018 12:00 AM EDT Ordered by an unspecified provider. Scanning Provider MEDIA MGR SCAN EXT O RDR/RSLT * SCAN DOC: LAB (01/09/2018 12:00 AM EDT) Narrative 01/09/2018 12:00 AM EDT Ordered by an unspecified provider. Scanning Provider MEDIA MGR SCAN EXT O RDR/RSLT documented in this encounter Visit Diagnoses Diagnosis Malignant neoplasm of upper-outer quadrant of left breast in female, estrogen receptor positive documented in this encounter Care Teams Laboratory Operations Coordinator Relationship Specialty Start Date End Date Amina Mckeon PA PCP - General Orthopaedic Surgery 01/10/18 07/02/18 documented as of this encounter
--- OUTSIDE RECORDS SUMMARY | 2024-02-04 18:39 | XMS_ITS | Encounter Summary ---
Author Organization [facility] [place] [address] Care Team Providers Care Director Smb Sales Name Role Phone Jewels Sorto Shruthi BAUM Primary Care Provider [phone] Encounter Details Date Type Department Care Team (Late Contact Info) Description 11/22/2015 Telephone [place] [address] [facility] [place] [address] Social History Tobacco Use Types Packs/Day Years [...] encounter Miscellaneous Notes * Telephone Encounter - Meghan Baltazar MD - 11/22/2015 5:16 PM EDT Relay results. Doing well. documented in this encounter Plan of Treatment Upcoming Encounters Date Type Department Care Team (Late st Contact Info) Description 12/04/2024 11:00 AM EDT Office [place] [address] [facility] [place] [address] documented as of this encounter Visit Diagnoses Not on filedocumented in this encounter Care Teams Director Smb Sales Relationship Specialty Start Date End Date Jewels Sorto APRN PCP - General 05/24/10 01/09/18 documented as of this encounter
--- OUTSIDE RECORDS SUMMARY | 2024-02-04 18:39 | XMS_ITS | Encounter Summary ---
Author Organization [facility] [place] [address] Care Team Providers Care Customer Engineer Name Role Phone Amina Mckeon Primary Care Provider + Encounter Details Date Type Department Care Team (Late Contact Info) Description 03/15/2018 Orders Only Hematology/Oncology at [address] [phone] Amina Larsen I, RN Malignant neoplasm of upper-outer quadrant of left [...] AM EDT Office Visit [place] [address] Roddy Olson MD [facility] [place] [address] documented as of this encounter Visit Diagnoses Diagnosis Malignant neoplasm of upper-outer quadrant of left breast in female, estrogen receptor positive documented in this encounter Care Teams Customer Engineer Relationship Specialty Start Date End Date Amina Mckeon PA PCP - General Orthopaedic Surgery 01/10/18 07/02/18 documented as of this encounter
--- OUTSIDE RECORDS SUMMARY | 2024-02-04 18:39 | XMS_ITS | Encounter Summary ---
Author Organization [facility] [place] [address] Care Team Providers Care Fiber Technician Name Role Phone Jewels Sorto APRN Primary Care Provider [phone] Encounter Details Date Type Department Care Team (Late Contact Info) Description 02/12/2017 Orders Only Hematology/Oncology at [address] [phone] Dorcas Dickinson APRN [address] [facility] [address] Malignant neoplasm of upper-outer quadrant of left [...] AM EDT Office [place] [address] Roddy Olson MD [facility] [place] [address] documented as of this encounter Visit Diagnoses Diagnosis Malignant neoplasm of upper-outer quadrant of left breast in female, estrogen receptor positive documented in this encounter Care Teams Fiber Technician Relationship Specialty Start Date End Date Jewels Sorto APRN PCP - General 05/24/10 01/09/18 documented as of this encounter
--- OUTSIDE RECORDS SUMMARY | 2024-02-04 18:39 | XMS_ITS | Encounter Summary ---
Author Organization [facility] [place] [address] Care Team Providers Care Repairer Welding Equipment Name Role Phone LivingstonJewels ca Shruthi BAUM Primary Care Provider [phone] Encounter Details Date Type Department Care Team (Late Contact Info) Description 12/07/2016 Orders Only Hematology Oncology at [address] [phone] Leatha Alonzo, RN Malignant neoplasm of left female breast, unspecified site of breast Social History Tobacco [...] AM EDT Office [place] [address] Roddy Olson MD [facility] [place] [address] documented as of this encounter Visit Diagnoses Diagnosis Malignant neoplasm of left female breast, unspecified site of breast documented in this encounter Care Teams Repairer Welding Equipment Relationship Specialty Start Date End Date Jewels Sorto APRN PCP - General 05/24/10 01/09/18 documented as of this encounter
--- OUTSIDE RECORDS SUMMARY | 2024-02-04 18:39 | XMS_ITS | Encounter Summary ---
Author Organization [facility] [place] [address] Care Team Providers Care Fire Support Man Name Role Phone Jewels Sorto BAUTISTA Primary Care Provider [phone] Encounter Details Date Type Department Care Team (Late st Contact Info) Description 12/23/2015 Orders [place] [address] Shiloh Cruz MD [facility] [address] Malignant neoplasm of left female breast, unspecified site of breast (Primary Dx) Social History Tobacco Use Types Packs/Day Years [...] AM EDT Office [place] [phone] Roddy Olson MD [facility] [place] [address] documented as of this encounter Results * Mammo Screen CAD and Jose Bilat (Generic) (12/21/2016 2:20 PM EDT) Anatomical [...] BIRADS CATEGORY 2: BENIGN FINDINGS * ??[employer] and The Society of [...] of left female breast, unspecified site of breast- Primary Malignant neoplasm of left female breast, unspecified site of breast documented in this encounter Care Teams Fire Support Man Relationship Specialty Start Date End Date Jewels Sorto APRN PCP - General 05/24/10 01/09/18 documented as of this encounter
--- OUTSIDE RECORDS SUMMARY | 2024-02-04 18:39 | XMS_ITS | Encounter Summary ---
Author Organization [facility]ly [facility] [place] [address] Care Team Providers Care Geographic Information Systems Engineer Name Role Phone Lisa Zacarias BAUTISTA Primary Care Provider [phone] Reason for Visit * Reason Comments Radiation Follow-up breast cancer Encounter Details Date Type Department Care Team (Late st Contact Info) Description 04/02/2019 9:45 AM EDT Office Visit Radiation Oncology at [address] [address] Ana Paula Nava [address] [place] [address] Breast cancer, stage 1, estrogen receptor positive, left Social History Tobacco Use Types Packs/Day [...] Sign Reading Time Taken Comments Blood Pressure 143/72 04/02/2019 9:40 AM EDT Pulse 79 04/02/2019 9:40 AM EDT Temperature 36.6 ??C (97.9 ??F) 04/02/2019 9:40 AM ED T Respiratory Rate 18 04/02/2019 9:40 AM EDT Oxygen Saturation 97% 04/02/2019 9:40 AM EDT Inhaled Oxygen Concentration - - Weight 91.3 kg (201 lb 4.8 oz) 04/02/2019 9:40 A M EDT Height 167.6 cm (5' 6) 04/02/2019 9:40 AM EDT Body Mass Index 32.49 04/02/2019 9:40 AM EDT documented in this encounter Progress Notes * Ana Paula Nava, LIFE SCIENCE RESEARCH ASSISTANT - 04/02/2019 9:45 AM EDT Images from the original note were not included. Patient ID: Kelley Jensen is a 63 y.o. female with breast ca, L, IDC, low gr, ER+NJ+, Noj0rba-, s/p lumpectomy & SNB, pT1b pN1a, stage II, s/p adjuvant chemo with AC followed by taxol which was completed on 08/16/2015. She was treated with adjuvant radiation therapy for a total dose of 60.4 Gy which was completed on 10/22/2015. She continues on hormone therapy with anastrozole. She is in clinic for scheduled follow-up. HPI 59 y/o f who underwent screening mmg which showed abnlty in L breast. [place] [facility] [place] from 12/16/14, 12/04/14, 12/20/12: Suspicious solid mass @ 2:00 in L breast & morphologically abnl ax lymph node. ? 01/12/15 US guided needle bxs L breast lesion #1 @ 1 o'clock. ?? Path: IDC, low to intermed gr, ER+NJ+, Rwn1vir-. ?? 01/28/[address] Cruz, w/exam [...] (TAXOL) IV pegfilgrastim (NEULASTA) [facility]Q 6 [facility]) 04/15/2015 Day, Cycle Day 1, Cycle 2 cyclophosphamide (CYTOXAN) IV 600 mg/m2/dose = 1,242 mg DOXOrubicin (ADRIAMYCIN) IV 60 mg/m2/dose = 124.2 mg PACLitaxel (TAXOL) IV pegfilgrastim (NEULASTA) SubQ 6 mg [facility] ([facility]) 04/29/2015 Day, Cycle Day 1, Cycle 3 cyclophosphamide (CYTOXAN) IV 600 mg/m2/dose = 1,242 mg DOXOrubicin (ADRIAMYCIN) IV 60 mg/m2/dose = 124.2 mg PACLitaxel (TAXOL) IV pegfilgrastim (NEULASTA) SubQ 6 mg [facility] ([facility]) 05/13/2015 Day, Cycle Day 1, Cycle 4 cyclophosphamide (CYTOXAN) IV 600 mg/m2/dose = 1,242 mg DOXOrubicin (ADRIAMYCIN) IV 60 mg/m2/dose = 124.2 mg PACLitaxel (TAXOL) IV pegfilgrastim (NEULASTA) SubQ 6 mg [facility] ([facility]) 05/31/2015 06/07/2015 Day, Cycle Day 1, Cycle 1 Day 8, Cycle 1 cyclophosphamide (CYTOXAN) IV DOXOrubicin (ADRIAMYCIN) IV PACLitaxel (TAXOL) IV 80 mg/m2/dose = 166 mg 80 mg/m2/dose = 166 mg pegfilgrastim (NEULASTA) SubQ [facility] ([facility]) 06/14/2015 06/21/2015 Day, Cycle Day 15, Cycle 1 Day 1, Cycle 2 cyclophosphamide (CYTOXAN) IV DOXOrubicin (ADRIAMYCIN) IV PACLitaxel (TAXOL) IV 80 mg/m2/dose = 166 mg 80 mg/m2/dose = 166 mg pegfilgrastim (NEULASTA) SubQ [facility] ([facility]) 06/28/2015 07/05/2015 Day, Cycle Day 8, Cycle 2 Day 15, Cycle 2 cyclophosphamide (CYTOXAN) IV DOXOrubicin (ADRIAMYCIN) IV PACLitaxel (TAXOL) IV 80 mg/m2/dose = 166 mg 80 mg/m2/dose = 166 mg pegfilgrastim (NEULASTA) SubQ [facility]) 07/12/2015 07/19/2015 Day, Cycle Day 1, Cycle 3 Day 8, Cycle 3 cyclophosphamide (CYTOXAN) IV DOXOrubicin (ADRIAMYCIN) IV PACLitaxel (TAXOL) IV 80 mg/m2/dose = 166 mg 80 mg/m2/dose = 166 mg pegfilgrastim (NEULASTA) SubQ [facility] ([facility]) 07/26/2015 08/02/2015 Day, Cycle Day 15, Cycle 3 Day 1, Cycle 4 cyclophosphamide (CYTOXAN) IV DOXOrubicin (ADRIAMYCIN) IV PACLitaxel (TAXOL) IV 80 mg/m2/dose = 166 mg 80 mg/m2/dose = 166 mg pegfilgrastim (NEULASTA) SubQ [facility]COLOGY ([facility]) 08/09/2015 08/16/2015 Day, Cycle Day 8, Cycle [...] Rec endometrial curettings to further characterize. ?? 5/17/16 robotic assisted laparoscopicTAH-BSO w/B total pelvic lymphadenectomy. [...] not enough material present in previous bx ([id number]) to perform mi smatch repair IHC. Cytopath: [...] Biopsy 01/12/2015 Local Surgery Lumpectomy done at [facility] 02/16/2015 Axillary Management [place] nodes alone Total Number of Nodes Removed 3 Total Nodes Positive 1 was positive for macromet measuring 1.0 cm with no extranodal extension Date of Last Surgical Procedure 02/16/2015 Histology Invasive ductal carcinoma No angiolymphatic invasion No perineural invasion Grade Low grade Tumor Staging from Staging System [id number] T1= tumor that measures less than 2 cm N1= one to three positive lymph nodes Stage 2 --good prognosis Size of Primary Malignancy 0.7 cm Margin negative with re-excision ER--estrogen receptor positive NJ-progesterone receptor positive HER-2 negative Endocrine Therapy Recommended [...] not enough material present in previous bx ([id number]) to perform mi smatch repair IHC. Cytopath: Pelvic wash neg for malignancy. ?? Late effects of treatment DEXA ordered Surveillance mammogram 01/01/2018--no mammographic evidence of malignancy 01/08/2019--: No mammographic evidence of malignancy. Lifetime Dose Tracking: ??? doxorubicin: 238.563 mg/m2 [...] smoker Z87.891 .usrg No Known Allergies Medications 04/02/19 0954 Medication Sig Taking? fluticasone propion-salmeterol (ADVAIR) 250-50 mcg/dose Disk with Device Inhale 1 puff into the lungs every 12 hours. Yes albuterol 90 mcg/actuation HFA Aerosol Inhaler Inhale 2 puffs into the lungs every 4 hours as needed for Wheezing. Use with spacer Yes anastrozole (ARIMIDEX) 1 mg Tablet Take 1 tablet by mouth daily. Yes citalopram (CELEXA) 20 mg Tablet Take 1 tablet by mouth daily. Yes acetaminophen (TYLENOL) 650 mg Tablet Sustained Release Take 1 tablet by mouth every 8 hours as needed for Pain. Do not exceed 6 tabs in 24 hours Yes ibuprofen (ADVIL;MOTRIN) 600 mg Tablet Take 1 tablet by mouth every 6 hours as needed for Pain. Yes loratadine (CLARITIN) 10 mg Tablet Take 10 mg by mouth daily. Reported on 06/12/2016 Yes ipratropium-albuterol (COMBIVENT RESPIMAT) 20-100 mcg/actuation Mist Inhale 1 puff into the lungs every 6 hours as needed for Wheezing. Reported on 12/14/2016 Yes levothyroxine (SYNTHROID) 25 mcg Tablet Take by mouth daily. Yes simvastatin (ZOCOR) 40 mg Tablet Take 40 mg by mouth nightly. Yes CHANTIX STARTING MONTH BOX 0.5 mg (11)- 1 mg (42) Tablets, Dose Pack Take 1 each by mouth See AdminInstructions. Patient not taking: Reported on 07/22/2018 Review and update of social history today Social Supports: pt has been to her Daniel for 12 years. She has 2 daughters and both live nearby. ?? Living Situation/Daily Activities/Transportation: pt and manage the daily chores and activities. She does not have any issues with transportation. ?? 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 She is carried under her 's insurance. ?? Advance Directives: Pt has not completed her advance directives. She does have the document and plans to review it. ? Adjustment to Illness/Mental Health Issues: Pt indicated she has been having episodes of anxiety. PCP has started her on Celexa and has referred her for counseling which will start next week. She hasgood support from her family. ?? Interim History: Patient has two ER visits over the last few weeks. She experienced difficulty breathing. The respiratory symptoms were felt to be due to a panic attack but she was referred for pulmonary testing and has been diagnosed with COPD. She will also have a sleep study done but this could not be scheduled until July. Her PCP has started her on Celexa two days ago for her anxiety. Mrs Jensen had stopped smoking for a couple of years and did resume. She has been prescribed Chantix which she has not started yet but she is motivated to stop. Time from completion of treatment 3 years 6 months Problems at primary site (breast) none Metastatic symptoms: none Pain Twinges are gone Breast tenderness occ not persistent Skin changes breast none Lymphedema none Persistent cough None--new DX of COPD Persistent headaches none ROM restriction none Functional status Independent with all ADL and IADL Smoking 1/2 a pack a day. She was just given a new Rx for Chantix and is motivated to stop smoking Activity/exercise Has been kyaking Hormone therapy side effects Some arthralgias Misc No hot flashes from hormone therapy A DEXA was ordered but was never scheduled so she is awaiting this Gets some lower back pain--not new--stretch it out helps Some anxiety Review of Systems Constitutional: Negative. Negative for activity change, appetite change, diaphoresis, fever and unexpected weight change. Patient is now retired HENT: Negative. Respiratory: Negative. Negative for cough, chest tightness and shortness of breath. New Dx of COPD Cardiovascular: Negative. Negative for chest pain and leg swelling. Gastrointestinal: Negative. Negative for abdominal pain. Last colonoscopy 08/2016 (plan to repeat in five years) Genitourinary: Negative. + vaginal dryness--uses lubricants Musculoskeletal: Negative. Skin: Negative. Does not use sun screen Neurological: Negative. Negative for dizziness, weakness and headaches. Hematological: Negative. Psychiatric/Behavioral: Negative. + anxiety--started on Celexa two days ago and has been referred for counseling Vitals Office Visit from 04/02/2019 in Radiation Oncology at [facility] Weight 91.3 kg (201 lb 4.8 oz) Height 167.6 cm (5' 6) BSA (Calculated - sq m) 2.06 sq meters BMI (Calculated) 32.49 Temp 36.6 ??C (97.9 ??F) Temp src Oral Heart Rate 79 Heart Rate Source NIBP Resp 18 BP 143/72 Patient Position Sitting SpO2 97 % Objective: Physical Exam Constitutional: She is oriented to person, place, and time. She appears well- developed and well-nourished. No distress. Appears well HENT: Head: Normocephalic and atraumatic. Eyes: Conjunctivae and EOM are normal. Right eye exhibits no discharge. Left eye exhibits no discharge. No scleral icterus. Neck: Neck supple. Cardiovascular: [...] Musculoskeletal: Normal range of motion. She exhibits no edema or tenderness. Lymphadenopathy: Head (right side): No submental, no [...] Cosmetic Result: __X__ Excellent; Good;____ Fair; ____Poor ??01/08/2019- mammogram--CONCLUSION: No mammographic evidence of malignancy Assessment and Plan: Kelley Jensen is a 62 y.o. female with breast ca, L, IDC, low gr, ER+NJ+, Lvy5isr-, s/p lumpectomy& SNB, pT1b pN1a, stage II, [...] is not a bother to her. She had a DEXA scan 03/2018 which showed osteopenia. She was advised to start vitamin D and calcium given that she is on an AI. We discussed the value of weight bearing excise as well. We reviewed signs and symptoms of late effect of radiation therapy including tissue fibrosis, need to do regular stretching exercises, need to report edema to breast or arm and any persistent symptoms including persistent cough, headache, skeletal pain, skin changes. We discussed the survivor benefits of regular exercise and weight control. She had a mammogram 12/2018 which showed no evidence of malignancy. Smoking-- patient has been diagnosed with COPD and smoking increases cancer risk--she is again encouraged to sop smoking. She has Chantix which she plans to start and she is motivated to stop smoking. Mrs Jensen has been followed by medical oncology every six months and is seen in surgical clinic once a year coordinated with her mammogram. We will discharge her from radiation oncology. Thank you for the opportunity to participate in her care. documented in this encounter Plan of Treatment Upcoming Encounters Date Type Department Care Team (Late st Contact Info) Description 12/04/2024 11:00 AM EDT Office Visit [place] [address] Roddy Olson MD [facility] [place] [address] documented as of this encounter Visit Diagnoses Diagnosis Breast cancer, stage 1, estrogen receptor positive, left documented in this encounter Care Teams Geographic Information Systems Engineer Relationship Specialty Start Date End Date Lisa Zacarias APRN PCP - General Family Medicine 01/08/19 documented as of this encounter
--- OUTSIDE RECORDS SUMMARY | 2024-02-04 18:39 | XMS_ITS | Encounter Summary ---
Author Organization [facility] Address [facility] [place] [address] Care Team Providers Care Line Construction Engineer Name Role Phone NoreenJewels Shruthi BAUM Primary Care Provider [phone] Reason for Visit * Auth/Cert Specialty Diagnoses / Procedures Referred By Saad escobar Referred To Contact Diagnoses 10 yr surv old provation rotary Procedures PRO COLONOSCOPY, DIAGNOSTIC COLONOSCOPY, DIAGNOSTIC Referral ID Status Reason Start Date Expiration Date Visits Re quested Visits Authorized [id number] 1 1 Encounter Details Date Type Department Care Team (Late st Contact Info) Description 08/10/2016 2:56 PM EST - 08/10/2016 6:08 PM [facility] Hospital En[place] [address] Lokesh Sheriff MD [facility] [place] [address] Discharge Disposition: Home Social History Tobacco Use [...] sent through Care Everywhere. * COLON POLYPS ([place]) documented in this encounter Medications at Time [...] on 06/12/2016 anastrozole (ARIMIDEX) 1 mg TabletIndications:Malharsha nant neoplasm [...] 1 11/17/2015 04/02/2019 citalopram (CELEXA) 20 mg TabletIndications:Malig nant neoplasm [...] Physical Planned Procedure: Colonoscopy: Indication: screening, exam 2006 with rectal hyperplastic polyps. Patient Active Problem [...] AM EDT Office Visit [place] [address] Roddy Olson MD [facility] [place] [address] documented as of this encounter Procedures Procedure [...] Report (08/10/2016 5:10 PM EST) Final Diagnosis [id number] ?Location: ; [facility]; A The signing pathologist has (i) examined the relevant preparation(s) for the specimen(s) and (ii) rendered or confirmed the diagnosis(es). . ?Surgical Pathology DIAGNOSIS A - Sigmoid and descending colon, ?? polypectomy: Colonic mucosa within normal limits and fecal material. B - Distal sigmoid colon, ?? polypectomy: Minute tubular adenoma. CR-PX Electronically signed by: ??Laura NAYG PhD, Bartolo Dale Verified: ??08/11/2016 ?Pathologist CLINICAL [...] sing: (T1) ??sns 08/11/2016 4:10 PM EST [facility] GI Biopsy 08/10/2016 5:10 PM EST 08/10/2016 5:10 PM EST GI Biopsy 08/10/2016 5:10 PM EST 08/10/2016 5:10 PM EST Lokesh Sheriff MD PATHOLOGY/CYTOLOG Y ORDERABLES [facility] [place] [address] * Specimen to Pathology (surgical or derm) (08/10/2016 5:10 PM EST) AP Specimen 08/10/2016 5:10 PM EST 08/10/2016 5:10 PM EST Narrative [facility] - 08/10/2016 5:10 PM EST Specimen requisition ordered. ??Separate Pathology report to follow Lokesh Sheriff MD PATHOLOGY/CYTOLOG Y ORDERABLES [facility] [place] [address] * Specimen to Pathology (surgical or derm) (08/10/2016 5:10 PM EST) AP Specimen 08/10/2016 5:10 PM EST 08/10/2016 5:10 PM EST Narrative [facility] - 08/10/2016 5:10 PM EST Specimen requisition ordered. ??Separate Pathology report to follow Lokesh Sheriff MD PATHOLOGY/CYTOLOG Y ORDERABLES [facility] [place] [address] * COLONOSCOPY (08/10/2016 3:46 PM EST) COLONOSCOPY [facility] End[facility] Procedure Date: 08/10/2016 3:46 PM ? Patient Name: Kelley Jensen ? N: [id number] ? Date of : 1955 ? Age: 61 ? Order #: [id number] ? Instrument Name: [id number] ? Procedure: ? Colonoscopy Indications: ? Screening for colorectal malignant ? neoplasm Patient Profile: ? This is a 61 year old female. Refer ? to note in patient chart for ? documentation of history and ? physical. Last Colonoscopy: 2006. Providers: ? Lokesh Sheriff MD, Jose Juan Kelley. ? DARCY Fields, Urmila Ferraro MD: ?Jewels [...] preparation was ? evaluated using the BBPS ([place] ? Bowel Preparation Scale) with scores ? [...] 3:30 PM EST 100 mL/hr 100 mL/hr documented in this [...] on Jayshree 08/10/16 at 1610, Until Jayshree 17 at 2008, Intra-Operative (Intra-Procedure), Routine 1610 (Given [...] time) documented in this encounter Care Teams Line Construction Engineer Relationship Specialty Start Date End Date Jewels oSrto APRN PCP - General 05/24/10 01/09/18 documented as of this encounter
--- OUTSIDE RECORDS SUMMARY | 2024-02-04 18:39 | XMS_ITS | Encounter Summary ---
Author Organization [facility] [place] [address] Care Team Providers Care Geophysical Manager Name Role Phone Jewels Sorto APRN Primary Care Provider [phone] Reason for Visit * Reason Comments Breast Cancer Encounter Details Date Type Department Care Team (Late st Contact Info) Description 11/22/2015 12:30 PM EDT Office Visit Hematology/Oncology at [address] [address] Hector Carey MD [address] [place] [address] Malignant neoplasm of upper-outer quadrant of [...] Sign Reading Time Taken Comments Blood Pressure 105/68 11/22/2015 12:34 PM EDT Pulse 83 11/22/2015 12:34 PM EDT Temperature 36.8 ??C (98.2 ??F) 11/22/2015 12:34 PM E DT Respiratory Rate 20 11/22/2015 12:34 PM EDT Oxygen Saturation 96% 11/22/2015 12:34 PM EDT Inhaled Oxygen Concentration - - Weight 94.3 kg (208 lb) 11/22/2015 12:34 PM EDT Height 168.8 cm (5' 6.46) 11/22/2015 12:34 PM E DT copied Body Mass Index 33.11 11/22/2015 12:34 PM EDT documented in this encounter Progress Notes * Hector Carey MD - 11/22/2015 1:15 PM EDT Diagnosis: 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 The tumor was 0.7 cm, low-grade, ER/WA positive, with 1 of 3 sentinel positive nodes. HER-2 was negative. Subjective: Kelley comes in today for followup. When I last saw her, we had delayed putting her on Arimidex. She has completed her chemotherapy and radiation therapy but was feeling a bit depressed overall. We started on Celexa 20 mg daily and she followed up with Dorcas Dickinson. Apparently in the interim, she had had an endometrial biopsy, which was not diagnostic of cancer but worrisome and so subsequently she had a hysterectomy and bilateral oophorectomy. When she saw Dorcas horace, a question was raised about her not needing to be on an aromatase inhibitor because of the oophorectomy. We discussed things today and she really does need to be on the aromatase inhibitor, which is actually more effective in preventing her cancer from coming back than even the chemotherapy that she has had already. At any rate, she is doing better on the Celexa, recovering quite well from her surgery and tells me she is fine today for starting the medication. Past medical history and social history were reviewed from 8 weeks ago and unchanged. Current Outpatient Prescriptions on File Prior to Visit Medication Sig Dispense Refill ??? acetaminophen (TYLENOL) 650 mg Tablet Sustained Release Take 1 tablet by mouth every 8 hours asneeded for Pain. Do not exceed 6 tabs in 24 hours ??? ibuprofen (ADVIL;MOTRIN) 600 mg Tablet Take 1 tablet by mouth every 6 hours as needed for Pain.40 tablet 0 ??? oxyCODONE (ROXICODONE) 5 mg Tablet Take 1 tablet by mouth every 4 hours as needed for Pain. 0 ??? senna-docusate (PERICOLACE) 8.6-50 mg Tablet [...] 40 mg by mouth nightly. 0 ??? EMOLLIENT BASE (CREAM BASE TOP) Apply topically. Jeans Cream. Apply to area of radiation twice a day but no less than 2 hours before a treatment. ??? prochlorperazine (COMPAZINE) 10 mg Tablet Take 1 tablet by mouth every 6 hours as needed for Nausea. (Patient not taking: Reported on 11/22/2015) 30 tablet 3 No current facility-administered medications on file prior to visit. . No Known Allergies The patient is currently on disability from her breast cancer. 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 Neurological: Negative. Hematological: Negative for adenopathy. Visit Vitals ??? BP 105/68 (Patient Position: Sitting) ??? Pulse 83 ??? Temp 36.8 ??C (98.2 ??F) (Oral) ??? Resp 20 ??? Ht 168.8 cm (5' 6.46) Comment: copied ??? Wt 94.3 kg (208 lb) ??? SpO2 96% ??? BMI 33.11 kg/m2 Head: Normocephalic, without obvious abnormality, atraumatic [...] Six lymph nodes negative for malignancy (0/6). Assessment/Plan: Kelley is fine today for starting Arimidex 1 mg daily. Arimidex suppresses adrenal production of estrogen and has really not much to do with the ovaries. That being said, it incurs a 50% reduction in her risk of recurrent disease, which is even more of a benefit than she got from chemotherapy. That being said, fortunately, the improvement is additive. In that regard, we recommend Arimidex 1 mg daily for at least five years, possibly ten. We went over the risks and side effects of the medication today and does wish to start it. We will go ahead with that and see her back in one month with a CBC and CMP to see how she is tolerating it. We also discussed long-term followup. We will be seeing her every six months fdc making sure she has yearly mammograms. documented in this encounter Plan of Treatment Upcoming Encounters Date Type Department Care Team (Late st Contact Info) Description 12/04/2024 11:00 AM EDT Office [place] [address] Roddy Olson MD [facility] [place] [address] documented as of this encounter Visit Diagnoses Diagnosis Malignant neoplasm of upper-outer quadrant of left female breast Malignant neoplasm of upper-outer quadrant of female breast documented in this encounter Care Teams Geophysical Manager Relationship Specialty Start Date End Date Jewels Sorto APRN PCP - General 05/24/10 01/09/18 documented as of this encounter
--- OUTSIDE RECORDS SUMMARY | 2024-02-04 18:39 | XMS_ITS | Encounter Summary ---
Author Organization [facility] [place] [address] Care Team Providers Care Machine Heel Seat Fitter Name Role Phone Lisa Zacarias WIRELESS MANAGER Primary Care Provider [phone] Encounter Details Date Type Department Care Team (Late st Contact Info) Description 01/20/2019 2:00 PM EDT Office Visit Hematology/Oncology at [address] [phone] Hellen Sandoval APRN [address] [place] [phone] Hormone receptor positive malignant neoplasm of breast, unspecified laterality Social History Tobacco Use Types Packs/Day Years [...] Sign Reading Time Taken Comments Blood Pressure 153/81 01/20/2019 1:48 PM EDT Pulse 81 01/20/2019 1:48 PM EDT Temperature 36.3 ??C (97.3 ??F) 01/20/2019 1:48 PM ED T Respiratory Rate 18 01/20/2019 1:48 PM EDT Oxygen Saturation 98% 01/20/2019 1:48 PM EDT Inhaled Oxygen Concentration - - Weight 91.8 kg (202 lb 4.8 oz) 01/20/2019 1:48 P M EDT Height 167.6 cm (5' 6) 01/20/2019 1:48 PM EDT Body Mass Index 32.65 01/20/2019 1:48 PM EDT documented in this encounter Progress Notes * Hellen Sandoval, WIRELESS MANAGER - 01/20/2019 2:00 PM EDT Subjective: Patient ID: Kelley Jensen is a 63 y.o. female. 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 The tumor was 0.7 cm, low-grade, ER/[place] positive, with 1 of 3 sentinel positive nodes HER-2 was negative. 01/2015 .S/P Dose dense AC followed by T and XRT to breast, now on Arimidex x 15 yrs Interim History: Kelley Jensen returns to clinic for labs and repeat evaluation for breast cancer. She continues on Arimidex daily. She recently had a mammogram about 2 weeks ago. According to patient, the results were negative. She continues to smoke daily, but states she is trying to stop completely. She denies pain, fever, chills, night sweats or unusual bleeding. PMH, PSH, FH, and SH: Unchanged since last office visit. Review of Systems Constitutional: Negative. HENT: Negative. Eyes: Negative. Respiratory: Negative. Cardiovascular: Negative. Gastrointestinal: Negative. Endocrine: Negative. Genitourinary: Negative. Musculoskeletal: Negative. Skin: Negative. Neurological: Negative. Hematological: Negative. Psychiatric/Behavioral: Negative. Objective: Physical Exam Constitutional: She is oriented to person, place, and time. She appears well- developed and well-nourished. HENT: Head: Normocephalic and atraumatic. Nose: Nose normal. Eyes: Conjunctivae and EOM are normal. Neck: Normal range of motion. Neck supple. Cardiovascular: Normal rate and regular rhythm. Pulmonary/Chest: Effort normal and breath sounds normal. Abdominal: Soft. Bowel sounds are normal. Musculoskeletal: Normal range of motion. Neurological: She is alert and oriented to person, place, and time. Skin: Skin is warm and dry. Psychiatric: She has a normal mood and affect. Her behavior is normal. Thought content normal. Vitals reviewed. Vitals: BP 153/81 (Patient Position: Sitting) Pulse 81 Temp 36.3 ??C (97.3 ??F) (Oral) Resp 18 Ht 167.6 cm (5' 6) Wt 91.8 kg (202 lb 4.8 oz) SpO2 98% BMI 32.65 kg/m?? 01/20/19 LABs: WBC 6.7, Hgb./Hct. 14.4/41.7, Plts. 207, ANC 3.99. Chem: Na+/K+ 142/4.4, BUN/Creat. 10/0.6, AST 14L, ALT 19, Alk. Phos. 113. Assessment and Plan: 1. Continue on current dose and frequency of Arimidex. 2. Follow up for annual mammograms as scheduled. 3. RTC in 1 year for labs, repeat evaluation, and CBE. Hellen Sandoval, MSN, WIRELESS MANAGER, AOCNP documented in this encounter Plan of Treatment Upcoming Encounters Date Type Department Care Team (Late st Contact Info) Description 12/04/2024 11:00 AM EDT Office [place] [address] Roddy Olson MD [facility] [place] [address] documented as of this encounter Visit Diagnoses Diagnosis Hormone receptor positive malignant neoplasm of breast, unspecified laterality documented in this encounter Care Teams Machine Heel Seat Fitter Relationship Specialty Start Date End Date Lisa Zacarias APRN PCP - General Family Medicine 01/08/19 documented as of this encounter
--- OUTSIDE RECORDS SUMMARY | 2024-02-04 18:39 | XMS_ITS | Encounter Summary ---
Author Organization [facility] Address [facility] [place] [address] Care Team Providers Care Primary Mill Roller Name Role Phone MckeanJewels ca Shruthi BAUM Primary Care Provider [phone] Reason for Visit * Reason Comments Radiation Follow-up Encounter Details Date Type Department Care Team (Late st Contact Info) Description 08/28/2016 3:00 PM EST Office Visit Radiation Oncology at [address] [phone] Maegan Eng MD [facility] [place] [address] Malignant neoplasm of left female breast, unspecified [...] Sign Reading Time Taken Comments Blood Pressure 126/70 08/28/2016 3:00 PM EST Pulse 75 08/28/2016 3:00 PM EST Temperature 36.8 ??C (98.2 ??F) 08/28/2016 3:00 PM ES T Respiratory Rate 16 08/28/2016 3:00 PM EST Oxygen Saturation 99% 08/28/2016 3:00 PM EST Inhaled Oxygen Concentration - - Weight 91.4 kg (201 lb 6.4 oz) 08/28/2016 3:00 P M EST Height - - Body Mass Index 32.06 06/12/2016 2:10 PM EST documented in this encounter Patient Instructions * Patient Instructions* Cristy Gordon RN - 08/28/2016 3:00 PM EST Your breast exam is without worrisome finding. I recommend an ultrasound of your right lower leg to exclude a possible blood clot. Please call me @ [phone] the day after the ultrasound for the result. For result of your colonoscopy, you can call [facility] gastroenterology @ [phone]. We will mail you a letter with an appointment to return to see me for followup in 6 months. documented in this encounter Progress Notes * Maegan Eng MD - 08/28/2016 3:00 PM EST CC: Sched'd fu s/p xrt completion. HPI: 60 y/o f who completed xrt 10 mos ago for breast ca, L, IDC, low gr, ER+TX+, [id number]-, s/p lumpectomy & SNB, pT1b pN1a, stage II, s/p adjuvant chemo. Her completed course of xrt is summarized [...] bed boost. 3D xrt used throughout treatment. 10/27/[address] Baltazar for thickened endometrial stripe, w/endometrial bx. Path: Small fragment of highly atypical epithelium [...] uded. Rec endometrial curettings to further characterize. 11/16/15 robotic assisted laparoscopicTAH-BSO w/B total pelvic lymphadenectomy. EUA showed small anteverted uterus w/no adnexal mass. Omentum adherent to anterior abdominal wall along prior incision. Path: No malignancy in uterus/cervix/B tubes/B ovaries. R pelvic sentinel lymph node neg for malignancy. 3 R pelvic lymph nodes neg for malignancy. 6 L pelvic lymph nodes neg for malignancy. DISCUSSION: Entire endometrial lining & lower uterine segment submitted for histologic eval, & no caidentified in any sxn. There is not enough material present in previous bx ([id number]) to perform mi smatch repair IHC. Cytopath: Pelvic wash neg for malignancy. 11/22/[address] Carey, w/initiation of arimidex. 12/16/15 B mmg: Neg. 12/16/15 fu w/Dr. Cruz; rtc 1 yr w/mmg. ROS: Swelling in lower legs since returned to work in Jan, swelling on R>L & has some discomfort in R lower leg from foot to knee; has been wearing support stockings rec'd by Neris Sorto, CADDY/CADDIE SUPERVISOR. Mild discomfort in L breast, level 1 on 1-10 pain scale; does not require analgesic. Appetite ok. 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 ROM arms around shoulders nl. No swelling hand/arm. Past Medical History Diagnosis Date ??? Breast cancer, left breast 2014 ??? Former smoker 12/08/2015 30 pack year history. ??? Obesity (BMI 30-39.9) Past Surgical History Procedure Laterality Date ??? Pro excise breast les w xray marker Left 02/16/2015 EXCISION LESION, BREAST W/ PREOP.MARKER (NEEDLE LOC.) performed by Shiloh Cruz MD at [facility] ??? Pro bx/remv, lymph node, deep axill Left 02/16/2015 BIOPSY OR EXCISION OF LYMPH NODE(S), OPEN, DEEP AXILLARY NODE(S) performed by Shiloh Cruz MD at [facility] ??? Pro identify sentinel node Left 02/16/2015 SENTINEL NODE INJECTION performed by Shiloh Cruz MD at [facility] ??? Pro laparoscopy w tot hysterect uterus 250 gram or less N/A 11/16/2015 LAPAROSCOPY, HYSTERECTOMY, UTERUS<250GM, ROBOTIC ASSIST performed by Meghan Baltazar MD at [facility] MAIN OR ??? Pro lap, pelvic lymphadenectomy/bx N/A 11/16/2015 LAPAROSCOPY,W\BILATERAL TOTAL PELVIC LYMPHADENECTOMY, PERIAORTIC LYMPH NODE SAMPLING, ROBOTIC performed by Meghan Baltazar MD at [facility] MAIN OR ??? Appendectomy ??? Breast biopsy Left 12/2014 ??? Breast lumpectomy Left 01/2015 ??? Pro colonoscopy, remv lesn, snare N/A 08/10/2016 COLONOSCOPY, POLYPECTOMY, REMOVAL LESION BY SNARE (WRVU 4.67) performed by Lokesh Sheriff MDat [facility] ENDOSCOPY Physical Exam Constitutional: She is oriented to person, place, and time. She appears well- developed and well-nourished. No distress. BP 126/70 (Patient Position: Sitting) Pulse 75 Temp 36.8 ??C (98.2 ??F) (Oral) Resp 16 Wt 91.4 kg (201 lb 6.4 oz) SpO2 99% BMI 32.06 kg/m2 HENT: Head: Normocephalic and atraumatic. Eyes: Conjunctivae and EOM are normal. Right eye exhibits no discharge. Left eye exhibits no discharge. No scleral icterus. Neck: Normal range of motion. Neck supple. No tracheal deviation present. No thyromegaly present. Pulmonary/Chest: Effort normal and breath sounds normal. No stridor. No respiratory distress. She has no wheezes. She has no rales. She exhibits no tenderness. Right breast exhibits no inverted nipple, no mass, no nipple discharge, no skin change and no tenderness. Left breast exhibits skin change ( Mild hyperpigmentation, consistent w/not unexpected appearance post xrt.). Left breast exhibits no inverted nipple, no mass, no nipple discharge and no tenderness. Abdominal: Soft. She exhibits no distension and no mass. There is no tenderness. There is no rebound and no guarding. Abdominal exam limited to upper abdomen. Musculoskeletal: Normal range of motion. +1 pitting edema in lower legs B, knees to ankles; mild erythema of R medial lower leg. Lymphadenopathy: Head (right side): No submental, no submandibular, no preauricular, no posterior auricular and no occipital adenopathy present. Head (left side): No submental, no submandibular, no preauricular, no posterior auricular and no occipital adenopathy present. She has no cervical adenopathy. She has no axillary adenopathy. Right: No supraclavicular adenopathy present. Left: No supraclavicular adenopathy present. Neurological: She is alert and oriented to person, place, and time. No cranial nerve deficit. She exhibits normal muscle tone. Coordination normal. Skin: She is not diaphoretic. Psychiatric: She has a normal mood and affect. Her behavior is normal. Judgment and thought contentnormal. A: Healing well post xrt. Swelling & erythema R lower leg worrisome for possible DVT. P: R/o DVT R leg - US ordered. Instructions given for care of irrad'd skin. Rtc 6 mos. Addendum: UR R leg neg for DVT. documented in this encounter Plan of Treatment Upcoming Encounters Date Type Department Care Team (Late st Contact Info) Description 12/04/2024 11:00 AM EDT Office Visit [place] [phone] Roddy Olson MD [facility] [place] [address] documented as of this encounter Procedures Procedure Name Priority Date/Time Associated Diagnosis Comments LAB SCAN 12/11/2016 12:00 AM EDT ULTRASOUND SCAN (SCAN) 08/28/2016 12:00 AM EST documented in this encounter Results * SCAN DOC: LAB (12/11/2016 12:00 AM EDT) Narrative 12/11/2016 12:00 AM EDT Ordered by an unspecified provider. Scanning Provider MEDIA MGR SCAN EXT O RDR/RSLT * SCAN DOC: ULTRASOUND (08/28/2016 12:00 AM EST) Anatomical Region Laterality Modality Other Narrative 08/28/2016 12:00 AM EST Ordered by an unspecified provider. Scanning Provider MEDIA MGR SCAN EXT O RDR/RSLT documented in this encounter Visit Diagnoses Diagnosis Malignant neoplasm of left female breast, unspecified site of breast documented in this encounter Care Teams Primary Mill Roller Relationship Specialty Start Date End Date Jewels Sorto APRN PCP - General 05/24/10 01/09/18 documented as of this encounter
--- OUTSIDE RECORDS SUMMARY | 2024-02-04 18:39 | XMS_ITS | Encounter Summary ---
Author Organization [facility] Address [facility] [place] [address] Care Team Providers Care Reservation Sales Agent Name Role Phone MowerJewels ca Shruthi BAUM Primary Care Provider [phone] Encounter Details Date Type Department Care Team (Late st Contact Info) Description 12/16/2015 1:00 PM EDT Office Visit Hematology [place] [address] hSiloh Cruz MD [facility] [place] [address] History of breast cancer Social History Tobacco [...] Sign Reading Time Taken Comments Blood Pressure - - Pulse - - Temperature 36.2 ??C (97.2 ??F) 12/16/2015 12:51 PM E DT Respiratory Rate - - Oxygen Saturation - - Inhaled Oxygen Concentration - - Weight - - Height - - Body Mass Index - - documented in this encounter Progress Notes * Shiloh Cruz MD - 12/16/2015 1:02 PM EDT Images from the original note were not included. Expand All Collapse All Subjective: ?? Patient ID: Kelley Jensen is a 59 y.o. Female HPI Kelley returns today in surgical follow up of left breast cancer. Kelley presented for screening mammography in November,. This revealed a concerning lesion in the upper, outer left breast. Additionalimaging including mammogram and ultrasound confirmed a solid 8mm lesion. There was also a question of an axillary node. Biopsy of the breast revealed low to intermediate grade IDC which was ER/DE+ and HER2-. ?? MRI was obtained which [...] now on arimidex without any side effects. Kelley still has some neuropathy in her feet but this is improving. She had some issues with anxietyand depression during the winter which has improved fully on celexa. She also had fatigue with chemo but this improved. She quit smoking at the time of diagnosis and is feeling much better- no sob orcough. FH: brother with cystic adenoid carcinoma of the leg. No breast or ovarian cancer SH: with 2 daughters. Quit smoking in January,. currrently not working. Surgical pathology revealed: DIAGNOSIS CORRECTED REPORT (see Discussion) Specimen (s): A - Left partial mastectomy B - Left axillary sentinel nodes Histologic Type: Invasive ductal carcinoma Tumor Grade: Low (High, Intermediate, Low) [id number] Score: 5 Tubular Differentiation: 1 Mitotic Rate: [...] receptors, and FISH performed on prior bx [id number] - see separate report. pTNM: ---pT1b N1a (AJCC, 7th edition, 2010) C - Left breast lateral margin, re-excsion: Fibrocystic changes with adenosis, columnar cell hyperplasia and usual ductal hyperplasia. On exam, Kelley is well appearing and in NAD. She looks much healthier than at time of diagnosis. There is no cervical, supraclavicular or axillary adenopathy. The left breast has a well healed incision on the superior areolar border. There is slight volume reduction but intact shape. No masses in either breast. No abdominal tenderness or masses. Mammogram today: normal A/P 60 yo female doing well after surgery, chemo, radiation for stage II IDC of the left breast. Noevidence of local or systemic recurrence. Resolving neuropathy. No other evidence of lingering sideeffects. Plan ongoing annual mammograms- next due in November,. BERNARDINO Altamirano or I will see Kelley at that time. She will call with any questions or concerns in the interim. Office Visit on 03/10/2015 documented in this encounter Plan of Treatment Upcoming Encounters Date Type Department Care Team (Late st Contact Info) Description 12/04/2024 11:00 AM EDT Office [place] [address] Roddy Olson MD [facility] [place] [address] documented as of this encounter Procedures Procedure Name Priority Date/Time Associated Diagnosis Comments LAB SCAN 12/17/2015 12:00 AM EDT documented in this encounter Results * SCAN DOC: LAB (12/17/2015 12:00 AM EDT) Scanning Provider MEDIA MGR SCAN EXT O RDR/RSLT documented in this encounter Visit Diagnoses Diagnosis History of breast cancer Personal history of malignant neoplasm of breast documented in this encounter Care Teams Reservation Sales Agent Relationship Specialty Start Date End Date Jewels Sorto APRN PCP - General 05/24/10 01/09/18 documented as of this encounter
--- OUTSIDE RECORDS SUMMARY | 2024-02-04 18:39 | XMS_ITS | Encounter Summary ---
Author Organization [facility] [address] Care Team Providers Care Sheet Manufacturing Supervisor Name Role Phone Jewels Sorto BAUTISTA Primary Care Provider [phone] Reason for Visit * Reason Onset Date Comments Medication Refill 01/24/2016 Encounter Details Date Type Department Care Team (Late Contact Info) Description 01/24/2016 Refill Hematology/Oncology at [address] [phone] Hector Carey MD [address] [place] [address], [place] [phone] Malignant neoplasm of upper-outer quadrant of left [...] AM EDT Office Visit [place] [phone] Roddy Olson MD [facility] [place] [address] documented as of this encounter Visit Diagnoses Diagnosis Malignant neoplasm of upper-outer quadrant of left female breast Malignant neoplasm of upper-outer quadrant of female breast documented in this encounter Care Teams Sheet Manufacturing Supervisor Relationship Specialty Start Date End Date Jewels Sorto APRN PCP - General 05/24/10 01/09/18 documented as of this encounter
--- OUTSIDE RECORDS SUMMARY | 2024-02-04 18:39 | XMS_ITS | Encounter Summary ---
Author Organization [facility] [place] [address] Care Team Providers Care Spring Crater Name Role Phone Lisa Zacarias [facility] Primary Care Provider [phone] Reason for Visit * Reason Onset Date Comments Medication Refill 03/28/2019 Encounter Details Date Type Department Care Team (Late st Contact Info) Description 03/28/2019 Refill Hematology/Oncology at [address] [phone] Hellen Sandoval APRN [address] [place] [address], [place] [phone] Malignant neoplasm of upper-outer quadrant of left [...] AM EDT Office Visit [place] [phone] Roddy Olson MD [facility] DR [place] [address] documented as of this encounter Visit Diagnoses Diagnosis Malignant neoplasm of upper-outer quadrant of left breast in female, estrogen receptor positive documented in this encounter Care Teams Spring Crater Relationship Specialty Start Date End Date Lisa Zacarias APRN PCP - General Family Medicine 01/08/19 documented as of this encounter
--- OUTSIDE RECORDS SUMMARY | 2024-02-04 18:39 | XMS_ITS | Encounter Summary ---
Author Organization [facility] Address [facility] [place] [address] Care Team Providers Care Network Diagnostic Support Specialist Name Role Phone NoreenLatishaandreas Hawkins APRN Primary Care Provider [phone] Reason for Visit * Auth/Cert Specialty Diagnoses / Procedures Referred By Saad escobar Referred To Contact Diagnoses Abnormal findings on diagnostic imaging of other specified body structures Malignant neoplasm of upper-outer quadrant of left female breast ENDOMETRIAL CANCER Procedures PRO LAPAROSCOPY W TOT HYSTERECT UTERUS 250 GRAM OR LESS PRO LAP, PELVIC LYMPHADENECTOMY/BX LAPAROSCOPY, HYSTERECTOMY, UTERUS<250GM, ROBOTIC ASSIST LAPAROSCOPY,W\BILATERAL TOTAL PELVIC LYMPHADENECTOMY, PERIAORTIC LYMPH NODE SAMPLING, ROBOTIC MODIFIER ROBOT,DAVINCI XI Referral ID Status Reason Start Date Expiration Date Visits Re quested Visits Authorized [id number] 1 1 Encounter Details Date Type Department Care Team (Latest Contact Info) Description 11/16/2015 9:17 AM EDT - 11/17/2015 12:11 PM EDT Hospital Encounter [place] [id number] Tom Baltazar MD [facility] [place] [address] Discharge Disposition: Home Social History Tobacco Use [...] Sign Reading Time Taken Comments Blood Pressure 132/60 11/17/2015 7:17 AM EDT Pulse 75 11/17/2015 7:17 AM EDT Temperature 37.2 ??C (99 ??F) 11/17/2015 7:17 AM EDT Respiratory Rate 17 11/17/2015 7:17 AM EDT Oxygen Saturation 94% 11/17/2015 7:17 AM EDT Inhaled Oxygen Concentration - - Weight 95.9 kg (211 lb 6.7 oz) 11/17/2015 2:20 A M EDT Height 167.6 cm (5' 6) 11/16/2015 5:09 PM EDT Body Mass Index 34.12 11/16/2015 5:09 PM EDT documented in this encounter Discharge Summaries * Solange Bella PA - 11/17/2015 11:13 AM EDT Images from the original note were not included. Discharge Summary Patient Name: Kelley Jensen Patient Age: 60 y.o. Language: Tunisian Race: White Ethnicity: Not nor Admit date: 11/16/2015 Discharge date and time: 11/17/2015 Attending Physician: Tom Baltazar MD Discharge Physician: Tom Baltazar MD Follow-up Recommendations for Providers: -Dr. Baltazar 12/08/15 Inpatient Provider Contact Information: Dr Baltazar -- [facility] Gynecologic Oncology -- 3K -- Discharge Diagnoses (Hospital Problems) and Secondary Diagnoses (Chronic Problems): Active Hospital Problems Diagnosis ??? Abnormal endometrial ultrasound Resolved Hospital Problems Diagnosis Date Resolved No resolved problems to display. Active Non-Hospital Problems Diagnosis ??? Abnormal ultrasound of endometrium ??? Obesity ??? Malignant neoplasm of upper-outer quadrant of left female breast ??? Dietary counseling and surveillance Operations/Major Procedures: 11/16/15 Robotic assisted laparoscopic total hysterectomy, bilateral salpingo- oophorectomy, bilateral pelvic lymphadenectomy History of Presentation: Reason for visit/ History of present illness :Kelley Jensen is being seen in the clinic today for preoperative evaluation prior to planned robotic assisted total laparoscopic hysterectomy for abnormal endometrial biopsy. Briefly, the patient has a history of left sided ER+, Her2- breast cancer. She was treated with surgery, chemo (ddAC-T), and radiation, completed 10/15. She was referred to our clinic for evaluation of a thickened endometrial echo on ultrasound, ordered for abdominal tenderness on exam. The patient underwent endometrial biopsy 10/27/2015, which demonstrated: DIAGNOSIS Endometrial biopsy: Small fragment of highly atypical epithelium suspicious for carcinoma intermixed with ??atrophic endometrium and cervical mucus... DISCUSSION There is a small fragment of highly atypical endometrial tissue with increased ??mitotic activity suspicious for carcinoma. ??On deeper levels (IHC slides) this ??focus is significantly smaller but shows moderate positivity for p53 and is strongly ??positive for p16 and serous carcinoma cannot be excluded. ??Recommend endometrial ??curettings to further characterize. She presents today for her preoperative visit. No interval changes in health. Hospital Course: Patient was admitted to the hospital for through Same Day Surgery for the above procedure: Findings in surgery include: EUA reveals a small anteverted uterus with no adnexal masses. Omentum adherent to the anterior abdominal wall along the prior incision. ?? Frozen section reveals an endometrial polyp without evidence of malignancy. Final surgical pathology is pending. Her postoperative course was uneventful. By the time of discharge on post op day number 1, her painwas well controlled with oral pain medications, she was tolerating a regular diet, ambulating independently, and voiding without difficulty. She was discharged home with follow-up in place, discharge instructions and plan of care discussed with patient and , all questions answered. Vital signs at Discharge: BP: 132/60, Heart Rate: 75, Temp: 37.2 ??C (99 ??F), Resp: 17, Height: 167.6 cm (5' 6) (11/16/15 1709) Weight - Scale: 95.9 kg (211 lb 6.7 oz) (11/17/15 0220) Functional and Cognitive status: Fully functional and cognitively intact Important Studies and Lab Data: Studies: Frozen section - Uterus, bilateral fallopian tubes and ovaries: Myomatous polyp; no definite evidence of malignancy ? on gross inspection and 2 pharmaceutical representative sections. Pending Studies and Lab Data: Final pathology pending Discharge Conditions/Prognosis: Stable Discharge to: Home Updated Allergies/ADRs: No Known Allergies Immunizations Given this Hospitalization: There is no immunization history on file for this patient. Discharge Medications: Your Medications New Medications Dose Details oxyCODONE 5 mg Tab Commonly known as: ROXICODONE Take 1 tablet by mouth every 4 hours as needed for Pain. 5 mg Refills: 0 senna-docusate 8.6-50 mg Tab Commonly known as: PERICOLACE Take 1 tablet by mouth 2 times daily. 1 tablet Quantity: 60 tablet Refills: 1 Continued medications with new dosing Dose Details ibuprofen 600 mg Tab Commonly known as: ADVIL;MOTRIN Take 1 tablet by mouth every 6 hours as needed for Pain. What changed: - medication strength - how to take this - when to take this - reasons to take this 600 mg Quantity: 40 tablet Refills: 0 Continued medications, unchanged Dose Details acetaminophen 650 mg Tbsr Commonly known as: TYLENOL Take 1 tablet by mouth every 8 hours as needed for Pain. Do not exceed 6 tabs in 24 hours 650 mg Refills: 0 citalopram 20 mg Tab Commonly known as: CeleXA Take 1 tablet by mouth daily. 20 mg Quantity: 60 tablet Refills: 6 CREAM BASE TOP Apply topically. Jeans Cream. Apply to area of radiation twice a day but no less than 2 hours before a treatment. Refills: 0 hydrochlorothiazide 25 mg Tab Commonly known as: HYDRODIURIL Take 25 mg by mouth daily. 25 mg Refills: 0 ipratropium-albuterol 20-100 mcg/actuation Mist Commonly known as: COMBIVENT RESPIMAT Inhale 1 puff into the lungs every 6 hours as needed for Wheezing. 1 puff Refills: 0 levothyroxine 25 mcg Tab Commonly known as: SYNTHROID Take by mouth daily. Refills: 0 loratadine 10 mg Tab Commonly known as: CLARITIN Take 10 mg by mouth daily. 10 mg Refills: 0 prochlorperazine 10 mg Tab Commonly known as: COMPAZINE Take 1 tablet by mouth every 6 hours as needed for Nausea. 10 mg Quantity: 30 tablet Refills: 3 simvastatin 40 mg Tab Commonly known as: ZOCOR Take 40 mg by mouth nightly. 40 mg Refills: 0 Smoking Status at Discharge: History Smoking Status ??? Former Smoker ??? Packs/day: 1.00 ??? Years: 30.00 ??? Types: Cigarettes ??? Quit date: 02/25/2015 Smokeless Tobacco ??? Never Used Instructions Given to Patient at Discharge: Patient Instructions PATIENT DISCHARGE INSTRUCTIONS Gynecology Oncology phone number: [phone] Call your doctor if you develop: --A fever over 101 degrees --Severe pain --Heavy vaginal bleeding --Increasing pain, redness, or discharge at your incision --It is normal to have light spotting from the vagina for up to 3 weeks following hysterectomy Activity level: No heavy lifting, pushing or pulling for 6 weeks. No sexual intercourse, no tampons, nothing in the vagina for 8 weeks. Diet: You may resume your regular diet. Be sure you drink plenty of fluids. Please use brianda-colace 1-2 tablets twice daily for the entire time that you are taking pain medication to keep your bowel movements soft and regular. If you are constipated or have not had a bowel movement in 3 days, pleaseuse milk of magnesia (or miralax) as directed over the counter. Driving: Do not drive until you are off of all narcotic medications and you are not feeling pain; usually about 2 weeks. Shower/Bath: Showering is fine. Short baths are OK but you should avoid having any abdominal incision submerged for more than 10-15 minutes for the next 2 weeks. Wound Care: Your incisions are closed with dissolvable stitches and surgical glue. The glue will dissolve on its own over time - do not pick at or rub the glue. The stitches do not need to be removed- they will dissolve on their own. Pain medications include oxycodone and ibuprofen and acetaminophen (Tylenol) ??? Please use ibuprofen 600 mg every 6 hours with food around the clock for the next several days and then after that use it only as needed. ??? Please use the oxycodone every 4-6 hours as needed for pain that breaks through the motrin. ??? You may take Tylenol over the counter as prescribed. Do not exceed 3000mg of Tylenol in any 24 hour period. -Please take your medication exactly as prescribed. -Read all instructions that come with your medication. -Using oxycodone or hydromorphone (Dilaudid) or morphine may cause addiction. While addiction is more common in people with a personal or family history of addiction, it can occur in anyone. -Taking more than the prescribed amount of medication or using with alcohol or other drugs can cause you to stop breathing resulting in coma, brain damage, or . -Opioids (oxycodone, hydromorphone/Dilaudid, morphine) can slow reaction time, cause drowsiness, orcloud judgement. It is unsafe for you to drive or operate heavy machinery while taking this medication. -Opioids (oxycodone, hydromorphone/Dilaudid, morphine) are at risk of being diverted by anyone withaccess to your home. Opioids should be stored in a safe and secure place, such as a locked cabinet or safe. -Unused opioids (oxycodone, hydromorphone/Dilaudid, morphine) should be disposed of according to the label or patient information. If there are no specific instructions, medications may be returned to a take-back location or mixed with a small amount of water and an undesirable waste substance suchas coffee grounds or cat litter. General Instructions None Future Appointments and Orders Future Appointments Provider Department Dept Phone 11/22/2015 12:30 PM Hector Carey MD Hematology/Oncology [phone] 12/06/2015 3:30 PM Maegan Eng MD [facility] Radiation Oncology [phone] 12/08/2015 2:30 PM Tom Baltazar MD Gynecologic Oncology [phone] 12/16/2015 11:10 AM [facility] ROOM 2 [facility] [phone] Please go to Top Former Area 3L ([place] Location). 12/16/2015 1:00 PM Shiloh Cruz MD [facility] [phone] Discharge References/Attachments None Provider Contact Information: JEWELS CRAMER, ACADEMIC COACH [phone] documented in this encounter Discharge Instructions * Patient Instructions* Solange Bella PA - 11/16/2015 11:08 AM EDT Images from the original note were not included. PATIENT DISCHARGE INSTRUCTIONS Gynecology Oncology phone number: [phone] Call your doctor if you develop: --A fever over 101 degrees --Severe pain --Heavy vaginal bleeding --Increasing pain, redness, or discharge at your incision --It is normal to have light spotting from the vagina for up to 3 weeks following hysterectomy Activity level: No heavy lifting, pushing or pulling for 6 weeks. No sexual intercourse, no tampons, nothing in the vagina for 8 weeks. Diet: You may resume your regular diet. Be sure you drink plenty of fluids. Please use brianda-colace 1-2 tablets twice daily for the entire time that you are taking pain medication to keep your bowel movements soft and regular. If you are constipated or have not had a bowel movement in 3 days, pleaseuse milk of magnesia (or miralax) as directed over the counter. Driving: Do not drive until you are off of all narcotic medications and you are not feeling pain; usually about 2 weeks. Shower/Bath: Showering is fine. Short baths are OK but you should avoid having any abdominal incision submerged for more than 10-15 minutes for the next 2 weeks. Wound Care: Your incisions are closed with dissolvable stitches and surgical glue. The glue will dissolve on its own over time - do not pick at or rub the glue. The stitches do not need to be removed- they will dissolve on their own. Pain medications include oxycodone and ibuprofen and acetaminophen (Tylenol) ??? Please use ibuprofen 600 mg every 6 hours with food around the clock for the next several days and then after that use it only as needed. ??? Please use the oxycodone every 4-6 hours as needed for pain that breaks through the motrin. ??? You may take Tylenol over the counter as prescribed. Do not exceed 3000mg of Tylenol in any 24 hour period. -Please take your medication exactly as prescribed. -Read all instructions that come with your medication. -Using oxycodone or hydromorphone (Dilaudid) or morphine may cause addiction. While addiction is more common in people with a personal or family history of addiction, it can occur in anyone. -Taking more than the prescribed amount of medication or using with alcohol or other drugs can cause you to stop breathing resulting in coma, brain damage, or . -Opioids (oxycodone, hydromorphone/Dilaudid, morphine) can slow reaction time, cause drowsiness, orcloud judgement. It is unsafe for you to drive or operate heavy machinery while taking this medication. -Opioids (oxycodone, hydromorphone/Dilaudid, morphine) are at risk of being diverted by anyone withaccess to your home. Opioids should be stored in a safe and secure place, such as a locked cabinet or safe. -Unused opioids (oxycodone, hydromorphone/Dilaudid, morphine) should be disposed of according to the label or patient information. If there are no specific instructions, medications may be returned to a take-back location or mixed with a small amount of water and an undesirable waste substance suchas coffee grounds or cat litter. documented in this encounter Medications at Time of Discharge Medication Sig Dispensed Refills Start Date End Date ibuprofen (ADVIL;MOTRIN) 600 mg Tablet Take 1 tablet by mouth every 6 hours as needed for Pain. 40 tablet 11/17/2015 levothyroxine (SYNTHROID) 25 mcg Tablet Take by mouth daily. 0 01/15/2015 loratadine (CLARITIN) 10 mg Tablet Take 10 mg by mouth daily. Reported on 06/12/2016 acetaminophen (TYLENOL) 650 mg Tablet Sustained Release Take 1 tablet by mouth every 8 hours as needed for Pain. Do not exceed 6 tabs in 24 hours 11/17/2015 03/31/2021 oxyCODONE (ROXICODONE) 5 mg Tablet Take 1 tablet by mouth every 4 hours as needed for Pain. 0 11/17/2015 12/08/2015 senna-docusate (PERICOLACE) 8.6-50 mg Tablet Take 1 [...] Take 25 mg by mouth daily. 07/22/2018 prochlorperazine (COMPAZINE) 10 mg TabletIndications:Mary t cancer, female, unspecified laterality Take 1 tablet by mouth every 6 hours as needed for Nausea. 30 tablet 3 03/15/2015 12/08/2015 simvastatin (ZOCOR) 40 mg Tablet Take 40 mg by mouth nightly. 0 01/15/2015 09/22/2019 documented as of this encounter Progress Notes * Josephine Celeste RN - 11/17/2015 11:55 AM EDT The patient has met discharge criteria per policy. Discharge instruction reviewed and patient discharged to responsible adult. Patient???s pain level has been assessed and patient states that his/her level is tolerable at thistime. The After Visit Summary (AVS) and accompanying hand-outs have been reviewed with the patient; the patient verbalizes understanding at this time. Opportunity for clarification provided. All new medications have been reviewed with the patient and the appropriate hand-outs have been given to the patient. Reportable sign and symptoms have been reviewed with patient. Pt is leaving the floor via wheelchair, accompanied by the CORK SORTER. * Tom Baltazar MD - 11/17/2015 7:22 AM EDT Gynecologic Oncology Progress Note Kelley Jensen is a 60 y.o. woman POD#1 s/p RATLH, BSO and bilateral pelvic lymphadenectomy for abnormal endometrial biopsy. Subjective: Kelley is feeling tired but well this morning. Pain is well controlled. Tolerating regular diet without nausea or vomiting. Askew in place. Ambulating without difficulty. No flatus or BM postoperatively. Denies chest pain, shortness of breath, fever or chills, leg pain. Physical Exam: Last Set of Vitals and range of vitals over past 24 hours: Last value Range last 24 hrs Temperature Temp: 37.2 ??C (99 ??F) Temp: [36.1 ??C (97 ??F)-37.2 ??C (99 ??F)] Heart Rate Heart Rate: 75 Heart Rate: [60-85] Blood Pressure BP: 132/60 BP: (92-144)/(58-89) Respiratory Rate Resp: 17 Resp: [12-21] SpO2 SpO2: 94 % SpO2: [90 %-97 %] Intake/Output Summary (Last 24 hours) at 11/17/15 0722 Last data filed at 11/17/15 0720 Gross per 24 hour Intake 4155 ml Output 2435 ml Net 1720 ml Gen: Resting comfortably in bed. NAD. Cardiac: Nl rate, RR. No murmurs, rubs, or gallops. Pulm: CTAB. No wheezes or crackles. Abd: +BS. Soft. Nontender, nondistended. No rebound or guarding. Incision: C/D/I. Dermabond in place. No surrounding drainage, erythema, or induration. : Askew catheter in place draining clear yellow Extremities: No lower extremity edema. Frozen Section: Myomatous polyp; no definite evidence of malignancy on gross inspection and 2 pharmaceutical representative sections Final Pathology Pending Assessment and Plan Kelley Jensen is a 60 y.o. woman POD#1 s/p RATLH, BSO and bilateral pelvic lymphadenectomy for abnormal endometrial biopsy. Neuro: Pain well controlled on Toradol--> Motrin, Tylenol, and oxycodone. - Continue analgesic regimen as above - Continue home Celexa Cardiovascular: Vital signs wnl. Hemodynamically stable, no evidence of bleeding. - H/o HTN - home HCTZ held - Continue to monitor Pulmonary: Adequate spO2 on room air. No concerns - Encourage incentive spirometry - Continue to monitor GI: Tolerating regular diet. - Continue regular diet - Zofran prn - Scheduled pericolace, Miralax prn - Pepcid : Askew is in place draining clear yellow urine with adequate output overnight -D/C askew this AM and await spontaneous void -Monitor intake and output FEK: IVF: LR @100 cc/hr. Tolerating PO intake. - D/c IV fluids after spontaneous void Onc: Frozen section revealed no definite evidence of malignancy. Final pathology report pending. - Follow up in clinic 3-4 weeks postoperatively Endocrine: Hypothyroid - Continue home levothyroxine ID: Afebrile, received prophylactic antibiotics preop, no evidence of infection. -continue to monitor vital signs. Prophylaxis: - SCDs while in bed, encourage ambulation, incentive spirometry, Pepcid Dispo: Anticipate discharge to home today POD# 1. Code Status: Full Code RIOS VERDUZCO MD, PGY4 11/17/2015 I have seen and examined the patient and reviewed and edited the resident's above history and I agree with the details as written. The assessment and plan were formulated in discussion with me and I agree with them as documented. Tom Baltazar MD * Rebeka Parisi Trevon - 11/16/2015 9:30 PM EDT Gynecology Oncology - Post-op Check Note Kelley Jensen is a 60 y.o. woman whose PMH is significant for HTN, breast cancer, COPD who is postoperative day # 0 s/p RATLH, BSO and bilateral lymphadenectomy for abnormal endometrial biopsy. 24 Hr Interval Events - Intraoperative findings: EUA reveals a small anteverted uterus with no adnexal masses. Omentum adherent to the anterior abdominal wall along the prior incision. ?? Frozen section reveals an endometrial polyp without evidence of malignancy. - EBL 20 cc Subjective: Kelley is feeling well. Pain controlled with Tylenol, Toradol and oxycodone. Tolerated dinner without nausea or vomiting. Askew in place. Has not been ambulated. Denies chest pain, shortness of breath, fever or chills. Physical Exam: Last Set of Vitals and range of vitals over past 24 hours: Last value Range last 24 hrs Temperature Temp: 37.2 ??C (99 ??F) Temp: [36.1 ??C (97 ??F)-37.2 ??C (99 ??F)] Heart Rate Heart Rate: 78 Heart Rate: [60-85] Blood Pressure BP: 120/68 BP: (92-144)/(58-89) Respiratory Rate Resp: 20 Resp: [12-21] SpO2 SpO2: 95 % SpO2: [90 %-97 %] Intake/Output Summary (Last 24 hours) at 11/17/15 0100 Last data filed at 11/16/15 2340 Gross per 24 hour Intake 1800 ml Output 1235 ml Net 565 ml I/O this shift: In: 120 [P.O.:120] Out: 650 [Urine:650] UOP at ~40 cc/hr Gen: Resting comfortably in bed. NAD. Neuro: Alert and oriented. Cardiac: RRR. No murmurs, rubs, or gallops. Pulm: CTAB. No wheezes, rales, or rhonci. Abd: +BS. Soft. Non tender. No rebound or guarding. Incision: C/D/I. Wound visualized without drainage, erythema, or induration. : Askew catheter in place draining straw colored urine. Extremities: No lower extremity edema. Laboratory (Last 24 Hours): None Frozen Section: Myomatous polyp; no definite evidence of malignancy on gross inspection and 2 pharmaceutical representative sections Final Pathology Pending Assessment and Plan Kelley Jensen is a 60 y.o. woman whose PMH is significant for HTN, breast cancer, COPD who is postoperative day # 0 s/p RATLH, BSO and bilateral lymphadenectomy for abnormal endometrial biopsy. Neuro: Pain well controlled on toradol--> motrin, Tylenol, and oxycodone. Alert and oriented. - Continue home Celexa Cardiovascular: Vital signs wnl. Hemodynamically stable, no evidence of bleeding. - H/o HTN - home HCTZ held Pulmonary: Adequate spO2 on room air. No concerns - Encourage incentive spirometry GI: Denies nausea, vomiting, and constipation. Tolerating regular diet. -Zofran prn/ scheduled pericolace -Pepcid : Askew is in place draining straw colored urine. 40 cc/hr. Good urine output. -D/C askew when ambulatory -Monitor intake and output FEK: IVF: LR @100 cc/hr. Tolerating PO intake. Onc: Frozen section revealed no definite evidence of malignancy. Final pathology report pending. -Follow up in clinic 3-4 weeks postoperatively Endocrine: Hypothyroid - Continue home levothyroxine ID: Afebrile, received prophylactic antibiotics preop, no evidence of infection. -continue to monitor vital signs. Prophylaxis: - SCDs while in bed, encourage ambulation, incentive spirometry Dispo: Anticipate discharge POD# 1. Code Status: Full Code REBEKA PARISI MD PGY3 11/17/2015 * Josephine Celeste RN - 11/16/2015 5:16 PM EDT Pt arrived to the floor via bed. Pt states pain is a 4/10. 5 abdominal lap sites are well approximated with dermabond. peripad in place with minimal drainage. Askew catheter draining clear, yellow urine. VSS. Pt oriented to the room. at bedside. Will continue to monitor. * Jose Dumont RN - 11/16/2015 2:41 PM EDT Patient arrived from OR slightly restless, attempting to turn toward right side. 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 Small wound noted above right pubis previously documented on arrival [place] [facility] by LYNN RN. Patient states she has seen PCP regarding wound and they recommended bacitracin. Plan to place wound care c onsult on transfer to [facility]. VSS. Will monitor. [id number] Report to Josephine TAVERAS. Info/orders reviewed, questions answered. Patient ready for transfer to [facility]. documented in this encounter H&P Notes * Tom Baltazar MD - 11/16/2015 10:41 AM EDT G[facility] Boss Inpatient Admission Interval Note I have reviewed the pre-procedure H&P completed by myself on 11/10/2015. (x) Condition unchanged since H&P originally performed. See interval note below. Interval Note: S: Kelley Jensen feels well today. No complaints / concerns. O: Visit Vitals ??? BP 131/89 ??? Pulse 73 ??? Temp 36.1 ??C (97 ??F) (Tympanic) ??? Resp 18 ??? Wt 93 kg (205 lb) ??? SpO2 97% ??? BMI 32.63 kg/m2 Gen: Sitting in bed, appears comfortable Exam otherwise deferred to OR A/P: 60 y.o. female presents for planned robotic-assisted total laparoscopic hysterectomy, bilateral salpingo-oophorectomy, sentinel lymphadenectomy, and other procedures as indicated for an endometrial biopsy suspicious for malignancy. No interval changes in history or physical exam. Will proceed with planned procedure. RIOS VERDUZCO MD, PGY4 11/16/2015 I have seen and examined the patient and reviewed and edited the resident's above historyand I agree with the details as written. The assessment and plan were formulated in discussion withme and I agree with them as documented. Tom Baltazar MD . documented in this encounter Miscellaneous Notes * Plan of Care - Elvia Webster RN - 11/17/2015 4:32 AM EDT Problem: General Plan of Care Goal: Plan of Care Review Outcome: Ongoing (Interventions Implemented as Appropriate) 11/17/15 0422 Plan of Care Review Plan of Care Outcome Status ongoing (interventions implemented as appropriate) Progress improving Coping/Psychosocial Response Interventions Plan of Care Reviewed with patient S/P: Laparoscopic hysterectomy Outcome Summary: VSS, lap sites CDI, pre-existing wound intact (lower right abd quadrant under skinfold); size approx 0.5 cm x 0.5 cm. Bacitracin applied to this site. Ambulating in [place] with SBA-1 assist. Rafael PO fluids overnight. Pain decreased with oxycodone 5mg and sched tylenol/toradol. Plan: Per Manny NAGY to be d/c'd in AM after AM rounds. Ongoing monitoring. Pain mgmt, I/O, D/C homeif able. INDIVIDUALIZED FALL PREVENTION: Assistance: Assisted with bed mobility to find comfortable position, will assist when OOB as needed. Supervision: Stand-by assist with initial ambulation and supervised activity as needed. Surveillance: Continuous pulse ox, call heaton within reach, purposeful rounding Goal: Individualization and Mutuality Outcome: Ongoing (Interventions Implemented as Appropriate) 11/16/15232611/17/15421 Individualization Individualize the Plan of Care: -- s/p laparoscopic hysterectomy Patient Specific Goals -- Rafael PO, Ambulation,D/C askew when ordered, pain reduction, lap sites intact, D/C home if able Mutuality/Individual Preferences What anxieties, fears or concerns do you have about your health or care? none -- What questions do you have about your health or care? none -- What information would help us give you more personalized care? none -- Goal: Fall Prevention-Safe Patient Handling Outcome: Ongoing (Interventions Implemented as Appropriate) 11/16/15 2100 11/17/1522011/17/15 0300 Musculoskeletal Interventions Activity/Level of Assistance -- up in [place];independently -- Positioning -- -- HOB up 30 degrees;HOB up 15 degrees Muscle Strengthening -- -- -- Self-Care Promotion -- -- -- Hilario Fall Risk History of Falling 0 -- -- Secondary Diagnosis 15 -- -- Ambulatory Aids 0 -- -- Intravenous Therapy/Heparin/Saline Lock 20 -- -- Gait/Transferring 0 -- -- Mental Status 0 -- -- Score 35 -- -- Activity and Safety Assistive Device -- None -- OTHER Hilario Fall Risk Med -- -- Safety Interventions Safety Precautions/Fall Reduction -- -- fall reduction program maintained;lighting adjusted for task/safety;nonskid shoes/slippers when out of bed 11/17/15421 Musculoskeletal Interventions Activity/Level of Assistance -- Positioning -- Muscle Strengthening mobility in bed promoted;activity/mobility promoted Self-Care Promotion independence encouraged while providing assistance;personal routines for BADL/IADL promoted;personal/BADL objects within reach Hilario Fall Risk History of Falling -- Secondary Diagnosis -- Ambulatory Aids -- Intravenous Therapy/Heparin/Saline Lock -- Gait/Transferring -- Mental Status -- Score -- Activity and Safety Assistive Device -- OTHER Hilario Fall Risk -- Safety Interventions Safety Precautions/Fall Reduction -- Goal: Infection Control Outcome: Ongoing (Interventions Implemented as Appropriate) 11/16/15 1844 11/16/15 2100 11/17/15 0300 Coping/Psychosocial Response Interventions Counseling -- emotional support provided;goal setting facilitated;personal strengths integrated;reassurance provided -- Safety Interventions Isolation Precautions -- -- standard precautions maintained Infection Prevention rest/sleep promoted;promote handwashing;nutrition promoted;hydration promoted;bronchial hygiene promoted;environmental surveillance -- -- Goal: Discharge Needs Assessment Outcome: Ongoing (Interventions Implemented as Appropriate) 11/16/15 2327 11/17/15 0422 Discharge Needs Assessment Concerns to be Addressed -- no discharge needs identified Readmission Within the Last 30 Days -- no previous admission in last 30 days Equipment Needed After Discharge -- none Current Health Anticipated Changes Related to Illness -- none Self-Care Equipment Currently Used at Home -- none Living Environment Transportation Available family or friend will provide -- * Op Note - Tom Baltazar MD - 11/16/2015 2:04 PM EDT [facility] [place] Patient Name: Kelley Jensen : [id number] MR#: [id number] Case Date: 11/16/2015 Surgeon: Surgeon(s) and Role: * Tom Baltazar MD - Primary * Rios Verduzco MD - Resident-Surgeon Chief Preoperative diagnosis: BIOPSY SUSPICIOUS FOR ENDOMETRIAL CANCER Postoperative diagnosis: BIOPSY SUSPICIOUS FOR ENDOMETRIAL CANCER Procedure(s): LAPAROSCOPY, HYSTERECTOMY, UTERUS<250GM, ROBOTIC ASSIST LAPAROSCOPY,W\BILATERAL TOTAL PELVIC LYMPHADENECTOMY, ROBOTIC MODIFIER ROBOT,DAVINCI XI Anesthesia: Anesthesia type not filed in the log. Findings: EUA reveals a small anteverted uterus with no adnexal masses. Omentum adherent to the anterior abdominal wall along the prior incision. Frozen section reveals an endometrial polyp without evidence of malignancy. Complications: none Fluids: see anes Estimated Blood Loss: 20 cc Drains: askew Specimens removed during surgery: washings, uterus, cervix, both tubes and ovaries, sentinel lymph nodes and right and left pelvic lymph nodes Drains: Surgical Closure: Primary Closure - closure of ALL tissue levels during the original surgery regardless of wires, wickes, drains, or other devices extruding through the incision Disposition: awakened from anesthesia, extubated and taken to the recovery room in a stable condition, having suffered no apparent untoward event. Condition: doing well without problems (Please see the Surgical Encounter Summary for any Implant and Specimen details pertinent to this patient.) HPI/Surgical Indications: Kelley Jensen is a 60 y.o. female with a preoperative biopsy in the setting of breast cancer which revealed very atypical cells suspicious for endometrial cancer. She is here after informed consent for definitive surgical treatment. Procedure Description: The patient was identified and consent was reaffirmed. She was taken to the operating room and placed in low lithotomy position with yellowfin stirrups after induction of anesthesia. Her arms were tucked at her sides and padded with gelpads in a neurophysiologically neutral position. An exam was conducted and there was a small anteverted uterus. An antiseptic preparation of the abdomen, perineum, and vagina was performed and the patient was sterilely draped. A surgical pause was performed, correctly identifying the intended procedures, for this patient. A Askew catheter was inserted into the bladder. Exam under anesthesia was conducted with unremarkable findings as above. Isocyanine green was injectedinto the cervix, 1 cc at 3:00 and 9:00 submucosally followed by 1 cc at the same locations 1 cm deep into the substance of the cervix. A [id number] uterine manipulator was placed. An 8-mm transverse incision was made at the umbilicus, through which a Veress needle was inserted and the abdomen was insufflated to tympany with carbon dioxide gas. An 8mm trocar was then inserted and the camera was placed, verifying a successful atraumatic entry. 3 additional 8-mm trocars and a 12-mm right upper quadrant veterinary assistant port were placed in the usual locations without difficulty, under direct visualization for a total of 5 ports. The patient was placed in steep Trendelenburg position. Using sharp and electrosurgical dissection, the round ligaments were desiccated and divided bilaterally. The retroperitoneum was opened and the ureters identified. The pelvic deven basins were opened and the ureter, obturator nerve, superior vesicle artery, psoas muscle and iliac vessels delineated bilaterally. Using the Firefly technology, the sentinel lymph nodes were assessed. Neither side mapped conclusively and so ultimately both basins were dissected in the usual fashion removing all nodes from the lateral border of the psoas muscle belly, deep to the obturator nerve, medial to the superior vesicle artery, cephalad to the iliac bifurcationand caudad to the circumflex iliac vein . A right sided mid obturator node was sent as a putative sentinel though the dye uptake was suspect. Next, the hysterectomy ensued.The ovarian vessels were identified and taking care not to injure theunderlying ureter, a window was created in the pelvic sidewall peritoneum. The vessels were cauterized with bipolar cautery and divided. The mesosalpinx was then opened to the level of the uterine vessels. A bladder flap was developed to a point over the upper vagina with sharp and electrosurgical dissection advancing the bladder off of the lower uterine segment, cervix and upper vagina. The uterine vessels were skeletonized and then cauterized with bipolar cautery and divided bilaterally as were the uterosacral ligaments. The hysterectomy was completed by making a circumferential colpotomy incision over the VCare cup with monopolarcautery and then the specimen was withdrawn through the vagina. The vaginal cuff was closed in the usual fashion with 2-0 VLoc suture in a running fashion. The robot was undocked. The 12-mm port site was closed with 0-Vicryl using a John-David ligature passer and the skin incisions were closed with 4-0 Vicryl. Dermaflex was applied to each site. The vagina was inspected and noted to be intact and hemostatic. The patient was returnedto a supine position as anesthesia was discontinued. She was then extubated and taken to the PACU in stable condition, and accompanied by the anesthesiologist and surgeons. Dr. Tom Baltazar, the attending physician, was present for the entire procedure. Sharp and sponge counts were correct x two. No surgical instrument counts were performed as per [facility] [place] policy. Complications: None. Antibiotics: 2 gm (s) cefazolin at induction of anesthesia. DVT Prophylaxis: 5000 units of heparin subcutaneously and SCDs continuously applied to the lower extremities. Infection Bundle used? N/A Attestation: Case Date: 11/16/2015 I was present and I participated during the entire procedure (does not need to include opening and closing). TOM BALTAZAR MD 11/16/2015 * Brief Op Note - Tom Baltazar MD - 11/16/2015 2:01 PM EDT Brief Operative Note Patient Name: Kelley Jensen : [id number] MR#: [id number] Case Date: 11/16/2015 Surgeon: Surgeon(s) and Role: * Tom Baltazar MD - Primary * Rios Verduzco MD - Resident-Surgeon Chief Preoperative diagnosis: BIOPSY SUSPICIOUS FOR ENDOMETRIAL CANCER Postoperative diagnosis: BIOPSY SUSPICIOUS FOR ENDOMETRIAL CANCER Procedure(s): LAPAROSCOPY, HYSTERECTOMY, UTERUS<250GM, ROBOTIC ASSIST LAPAROSCOPY,W\BILATERAL TOTAL PELVIC LYMPHADENECTOMY, ROBOTIC MODIFIER ROBOT,DAVINCI XI Anesthesia: Anesthesia type not filed in the log. Findings: EUA reveals a small anteverted uterus with no adnexal masses. Omentum adherent to the anterior abdominal wall along the prior incision. Frozen section reveals an endometrial polyp without evidence of malignancy. Complications: none Fluids: see anes Estimated Blood Loss: * No values recorded between 11/16/2015 11:36 AM and 11/16/2015 2:01 PM * Drains: askew Disposition: awakened from anesthesia, extubated and taken to the recovery room in a stable condition, having suffered no apparent untoward event. Condition: doing well without problems Infection Bundle used? N/A Attestation: Case Date: 11/16/2015 I was present and I participated during the entire procedure (does not need to include opening and closing). (Please see the Surgical Encounter Summary for any Implant and Specimen details pertinent to this patient.) documented in this encounter Plan of Treatment Upcoming Encounters Date Type Department Care Team (Late st Contact Info) Description 12/04/2024 11:00 AM EDT Office Visit [place] [address] Roddy Olson MD [facility] [place] [address] documented as of this encounter Procedures Procedure Name Priority Date/Time Associated Diagnosis Comments ECG SCAN 11/17/2015 12:00 AM EDT SPECIMEN TO PATHOLOGY Routine 11/16/2015 1:58 PM EDT SPECIMEN TO PATHOLOGY Routine 11/16/2015 1:40 PM EDT SURGICAL PATHOLOGY REPORT Routine 11/16/2015 1:00 PM EDT SPECIMEN TO PATHOLOGY STAT 11/16/2015 1:00 PM EDT SURGICAL PATHOLOGY REPORT Routine 11/16/2015 12:29 PM EDT SPECIMEN TO PATHOLOGY Routine 11/16/2015 12:29 PM EDT NON-HELP DESK ASSOCIATE FINAL REPORT Routine 11/16/2015 12:15 PM EDT CYTOPATHOLOGY NON-GYNECOLOGICAL Routine 11/16/2015 12:15 PM EDT MODIFIER ROBOT,DAVINCI XI 11/16/2015 11:05 AM EDT ENDOMETRIAL CANCER ROBOTIC LAPAROSCOPY,W\BILATERA L TOTAL PELVIC LYMPHADENECTOMY, PERIAORTIC LYMPH NODE SAMPLING (WRVU 15.6) 11/16/2015 11:05 AM EDT ENDOMETRIAL CANCER ROBOTIC LAPAROSCOPY, HYSTERECTOMY, UTERUS<250GM (WRVU 13.36) 11/16/2015 11:05 AM EDT ENDOMETRIAL CANCER documented in this encounter Results * SCAN DOC: ECG (11/17/2015 12:00 AM EDT) Scanning Provider MEDIA MGR SCAN EXT O RDR/RSLT * Specimen to Pathology (surgical or derm) (11/16/2015 1:58 PM EDT) AP Specimen 11/16/2015 1:58 PM EDT 11/16/2015 1:58 PM EDT Narrative [facility] - 11/16/2015 1:58 PM EDT Specimen requisition ordered. ??Separate Pathology report to follow Tom Baltazar MD PATHOLOGY/CYTOLOGY O BRENDA Performing Organization Address City/State/[facility] Co de Phone Number [facility] [place] [address] * Specimen to Pathology (surgical or derm) (11/16/2015 1:40 PM EDT) AP Specimen 11/16/2015 1:40 PM EDT 11/16/2015 1:40 PM EDT Narrative [facility] - 11/16/2015 1:40 PM EDT Specimen requisition ordered. ??Separate Pathology report to follow Tom Baltazar MD PATHOLOGY/CYTOLOGY O RDGIA Performing Organization Address [facility] [place] [address] * Surgical Pathology Report (11/16/2015 1:00 PM EDT) Surgical Pathology Report [id number] ? Location: OR; OR09; A The signing pathologist has (i) examined the relevant preparation(s) for the specimen(s) and (ii) rendered or confirmed the diagnosis(es). . ?Frozen Section FROZEN SECTION DIAGNOSIS AFS - Uterus, bilateral fallopian tubes and ovaries: ?Myomatous polyp; no definite evidence of malignancy ?on gross inspection and 2 pharmaceutical representative sections. - JLG 11/16/15 13:55 11/16/15 ??Verified by: ??Itz NAGY, Jimmie Craft, Pathologist The attending pathologist whose electronic signature appears on this report has reviewed all diagnostic slides in rendering the frozen section diagnosis. This intraoperative consultation should be interpreted as a preliminary diagnosis pending review of the entire specimen and special studies, if any. [facility] 11/16/2015 1:00 PM EDT Tom Baltazar MD PATHOLOGY/CYTOLOGY Tyree GUTIERREZ Performing Organization Address [facility] Co de Phone Number [facility] [place] [address] * Specimen to Pathology (surgical or derm) (11/16/2015 1:00 PM EDT) AP Specimen 11/16/2015 1:00 PM EDT 11/16/2015 1:00 PM EDT Narrative [facility] - 11/16/2015 1:00 PM EDT Specimen requisition ordered. ??Separate Pathology report to follow Tom Baltazar MD PATHOLOGY/CYTOLOGY O RDERABLES Performing Organization Address [facility] Co de Phone Number [facility] [place] [address] * Surgical Pathology Report (11/16/2015 12:29 PM EDT) Final Diagnosis 16 ? Location: [facility]; [facility]; A The signing pathologist has (i) examined the relevant preparation(s) for the specimen(s) and (ii) rendered or confirmed the diagnosis(es). . ?Surgical Pathology DIAGNOSIS A - Uterus, cervix, and bilateral ovaries and fallopian tubes, ?resection: ?1 - No evidence of residual malignancy (see Discussion). ?2 - Squamous atrophy and inflammation, cervix. ?3 - Submucosal lipoleiomyoma, uterus. ?4 - Focal adenomyosis. ?5 - Bilateral benign atrophic ovaries. ?6 - Bilateral fallopian tubes without histopathologic abnormality. B - Right pelvic sentinel lymph node, excision: ?One lymph node negative for malignancy (0/1). C - Right pelvic lymph nodes, resection: ?Three lymph nodes negative for malignancy (0/3). D - Left pelvic lymph nodes, resection: ?Six lymph nodes negative for malignancy (0/6). 11/19/15 ARS 11/19/15 Verified by: ? Jenny NAGY, Alfredito Espinosa ?Pathologist ?(Electronic Signature) The attending pathologist whose signature appears on this report has reviewed all diagnostic slides and has edited the gross and/or microscopic portion of the report in rendering the final pathologic diagnosis. DISCUSSION The entire endometrial lining and lower uterine segment are submitted for histologic evaluation, and no carcinoma is identified in any section. ??There is not enough material present in the previous biopsy ([id number]) to perform mismatch repair immunohistochemist ry. ADDITIONAL STUDIES Whole slide scan: [id number] CLINICAL INFORMATION Specimen Submitted: A - Uterus cervix tubes ovaries for frozen section B - Right pelvic sentinel lymph node C - Right pelvic lymph node D - Left pelvic lymph nodes Clinical History: Endometrial cancer FROZEN SECTION Frozen section(s) performed. ??Please refer to separate electronic frozen section report(s). . SPECIMEN PROCESSING A - Labeled/Fixative: uterus cervix tubes ovaries, fresh. Qty/Size/Weight: single, 6.5 x 6.0 x 3.5; 68 g (fixed). Specimen Description: previously opened uterus with attached cervix, bilateral fallopian tubes and ovaries. ENDOMETRIAL TUMOR: not grossly identified UTERUS Endometrium: There is a 2.7 x 2.4 x 0.7 cm posterior endometrial, pedunculated polyp. The endometrium otherwise averages 0.2 cm in thickness and is slightly shaggy and bloody without masses. Myometrium: averages 1.4 cm, no masses are identified. Serosa: smooth, topete, glistening. Cervix: smooth and glistening, no masses or ulcerations at the endocervical junction. OVARIES AND FALLOPIAN TUBES Right Ovary ??Size: 2.7 x 1.5 x 1.2 cm. ??Outer Surface: topete and cerebriform. ??Cut Surface: firm with a color variation from brown to cream. Right Tube: 6.1 x 0.7, discontinuous along its length, smoth serosal covering, paratubal cysts up to 1.2 cm. Left Ovary ??Size: 2.2 x 1.5 x 1.2 cm. ??Outer Surface: topete and cerebriform. ??Cut Surface: firm with a color variation from brown to cream. Left Tube: 5.5 x 0.6 cm and discontinuous along its length; smooth and glistening serosa. SECTIONS/PROCESSIN G: (1) base of polyp and endometrium, frozen section; (2-3) additional sections of polyp, frozen sections; (4) posterior cervix; (5) anterior cervix; (6-7) posterior MAITE (endometrial end inked black); (8-9) anterior MAITE (endometrial end inked black); (10-11) remainder of polyp base; (12-14) remainder of polyp; (15-19) remainder of posterior endometrium; (20-24) anterior endometrium; (25) right fallopian tube; (26) right ovary; (27) left fallopian tube; (28) left ovary. ??(R28) B - ??Labeled/Fixative : right pelvic sentinel lymph node, fresh. Quantity/Size: single, 2.9 x 1.5 x 0.7 cm. Tissue Description: portion of adipose tissue containing a single lymph node, 2.1 cm. Sections/Processin g: (1) one lymph node. (R1) C - ??Labeled/Fixative : right pelvic lymph node, fresh. Quantity/Size: multiple, 6 x 5 x 1.5 cm. Tissue Description: portions of adipose tissue containing lymph nodes up to 2.3 cm. Sections/Processin g: (1) one lymph node; (2) portion of one lymph node with 7-8; (3-6) one lymph node; (2,7-8) one lymph node. (R8) D - ??Labeled/Fixative : left pelvic lymph nodes, fresh. Quantity/Size: single, 4 x 3 x 2 cm. Tissue Description: portion of adipose tissue containing lymph nodes up to 2.2 cm. Sections/Processin g: (1-3) each with one lymph node; (4) two lymph nodes; (5-9) one lymph node. (R9) nsm ?Frozen Section FROZEN SECTION DIAGNOSIS AFS - Uterus, bilateral fallopian tubes and ovaries: ?Myomatous polyp; no definite evidence of malignancy ?on gross inspection and 2 pharmaceutical representative sections. - JLG . FROZEN SECTION DIAGNOSIS 11/16/15 13:55 11/16/15 ??Verified by: ??Itz NAGY, Jimmie Craft, Pathologist The attending pathologist whose electronic signature appears on this report has reviewed all diagnostic slides in rendering the frozen section diagnosis. This intraoperative consultation should be interpreted as a preliminary diagnosis pending review of the entire specimen and special studies, if any. 11/19/2015 1:04 PM EDT [facility] LYMPH NODE SPECIMEN / Unknown 11/16/2015 12:29 PM EDT 11/16/2015 12:29 PM EDT LYMPH NODE SPECIMEN / Unknown 11/16/2015 12:29 PM EDT 11/16/2015 12:29 PM EDT LYMPH NODE SPECIMEN / Unknown 11/16/2015 12:29 PM EDT 11/16/2015 12:29 PM EDT LYMPH NODE SPECIMEN / Unknown 11/16/2015 12:29 PM EDT 11/16/2015 12:29 PM EDT Tom Baltazar MD PATHOLOGY/CYTOLOGY O BRENDA Performing Organization Address [facility] Co de Phone Number [facility] [place] [address] * Specimen to Pathology (surgical or derm) (11/16/2015 12:29 PM EDT) AP Specimen 11/16/2015 12:2 9 PM EDT 11/16/2015 12:29 PM EDT Narrative [facility] - 11/16/2015 12:29 PM EDT Specimen requisition ordered. ??Separate Pathology report to follow Tom Baltazar MD PATHOLOGY/CYTOLOGY O BRENDA Performing Organization Address [facility] Co de Phone Number [facility] [place] [address] * Non-Ergonomics Consultant Final Report (11/16/2015 12:15 PM EDT) Diagnosis Discussion [id number] ? Location: U; SS14; A The signing pathologist has (i) examined the relevant preparation(s) for the specimen(s) and (ii) rendered or confirmed the diagnosis(es). . ? Non-Ergonomics Consultant Final DIAGNOSIS Negative for Malignancy 11/17/15 ?Screened by: ? SLA ?Rescreened by: ?? LAUREN 11/17/15 ?Verified by: ? Virginia NAGY, Krzysztof Dale ? Cytopathologist ? (Electronic Signature) DISCUSSION Pelvic Wash: Mesothelial cells and connective tissue present. (Cell block findings were incorporated into the diagnosis.) CLINICAL INFORMATION Specimen Source : ?? Pelvic Wash Pertinent Clinical Data and Significant Therapy: ?? Endometrial cancer Clinical Impression : ?? Endometrial cancer Pertinent Radiologic Findings ??: ?? (not provided) Gross Description: ?? Received ??fresh, approximately 100 ml. total volume of ?? cloudy, red fluid. ?? Total Preparation: Liquid Based Prep 1; Cell Block 1. 11/17/2015 2:38 PM EDT [facility] Pelvic Washing 11/16/2015 12 :15 PM EDT 11/16/2015 12:15 PM EDT Tom Baltazar MD PATHOLOGY/CYTOLOGY O RDERABLES [facility] [place] [address] * Cytopathology Non-Gynecological (11/16/2015 12:15 PM EDT) AP Specimen 11/16/2015 12:1 5 PM EDT 11/16/2015 12:15 PM EDT Narrative [facility] - 11/16/2015 12:15 PM EDT Specimen requisition ordered. ??Separate Pathology report to follow Tom Baltazar MD PATHOLOGY/CYTOLOGY O BRENDA [facility] [place] [address] documented in this encounter Visit Diagnoses Diagnosis Abnormal endometrial ultrasound Nonspecific (abnormal) findings on radiological and other examination of genitourinary organs documented in this encounter Admitting Diagnoses Diagnosis Abnormal endometrial ultrasound Nonspecific (abnormal) findings on radiological and other examination of genitourinary organs documented in this encounter Administered Medications Inactive Administered Medications - up to 3 most recent administrations Medication Order MAR Action Action Date Dose Rate Site acetaminophen (TYLENOL) tablet 650 mg 650 mg, Oral, EVERY 6 HOURS, First dose on Sun11/16/15 at 1700, Until Discontinued, Use acetaminophen first, Routine Given 11/17/2015 11:48 AM EDT 650 mg Given 11/17/2015 4:53 AM EDT 650 mg Given 11/16/2015 11:25 PM EDT 650 mg citalopram (CeleXA) tablet 20 mg 20 mg, Oral, DAILY, First dose on Sun11/17/15 at 0900, Until Discontinued, Routine Given 11/17/2015 8:11 AM EDT 20 mg famotidine (PEPCID) tablet 20 mg 20 mg, Oral, 2 TIMES DAILY, First dose on Sun11/16/15 at 2100, Until Discontinued, Routine Given 11/17/2015 8:11 AM EDT 20 mg Given 11/16/2015 8:59 PM EDT 20 mg HYDROmorphone (DILAUDID) syringe 0.2-0.4 mg 0.2-0.4 mg, Intravenous, EVERY 5 MIN PRN, Pain, Starting on Sun11/16/15 at 1423, Until Sun11/16/15 at 1707, For moderate pain (4-6) give: 0.2 mg every 5 minute prn For severe pain (7-10) give: 0.4 mg every 5 minutes prn Maximum dose: 4 mg per hour Hold for respiratory rate less than 10 per minute., PACU Recovery Given 11/16/2015 3:22 PM EDT 0.2 mg Given 11/16/2015 2:59 PM EDT 0.2 mg Given 11/16/2015 2:50 PM EDT 0.4 mg ibuprofen (ADVIL;MOTRIN) tablet 600 mg 600 mg, Oral, EVERY 6 HOURS SCHEDULED, First dose on Jayshree 11/18/15 at 0200, Until Discontinued, - Begin after ketorolac discontinued. , Routine ketorolac (TORADOL) injection 15 mg 15 mg, Intravenous, EVERY 6 HOURS, 5 doses, First dose on Sun11/16/15 at 2000, Last dose on Sun11/17/15 at 2000, Routine Given 11/17/2015 8:12 AM EDT 15 mg Given 11/17/2015 3:01 AM EDT 15 mg Given 11/16/2015 8:59 PM EDT 15 mg lactated ringers infusion 1,000 mL 1,000 mL, at 100 mL/hr, Intravenous, CONTINUOUS, Starting on Sun11/16/15 at 1030, Until Sun11/16/15 at 1707, Day of Surgery (Day of Procedure) Continued Bag 11/16/2015 2:45 PM EDT 1,000 mLs 100 mL/hr lactated ringers infusion 1,000 mL 1,000 mL, at 100 mL/hr, Intravenous, CONTINUOUS, Starting on Sun11/16/15 at 1500, Until Sun11/17/15 at 1422 New Bag 11/16/2015 11:50 PM EDT 1,000 mLs 100 mL/hr New Bag 11/16/2015 2:41 PM EDT 1,000 mLs 100 mL/hr levothyroxine (SYNTHROID) tablet 25 mcg 25 mcg, Oral, EVERY MORNING, First dose on Sun11/17/15 at 0600, Until Discontinued, Routine Given 11/17/2015 6:54 AM EDT 25 mcg oxyCODONE (ROXICODONE) immediate release tablet 5-10 mg 5-10 mg, Oral, EVERY 3 HOURS PRN, Starting on Sun11/16/15 at 1432, Until Sun11/17/15 at 1422, Pain, 5 mg for pain score 3-6, 10 mg for score 7-10, Routine Given 11/17/2015 11:48 AM EDT 5 mg Given 11/17/2015 4:53 AM EDT 10 mg Given 11/16/2015 11:27 PM EDT 5 mg senna-docusate (PERICOLACE) 8.6-50 mg per tablet 2 tablet 2 tablet, Oral, 2 TIMES DAILY, First dose on Sun11/16/15 at 2100, Until Discontinued, Routine Given 11/17/2015 8:11 AM EDT 2 tablets Given 11/16/2015 8:59 PM EDT 2 tablets sodium chloride 0.9 % flush 5 mL 5 mL, Intravenous, 2 TIMES DAILY, First dose on Sun11/16/15 at 2100, Until Discontinued, Routine Given 11/16/2015 9:05 PM EDT 5 mLs documented in this encounter Active and Recently Administered Medications Times are shown in EDT. Scheduled Medication Order 11/15/2015 11/16/2015 11/17/2015 acetaminophen (TYLENOL) tablet 650 mg 650 mg, Oral, EVERY 6 HOURS, First dose on Sun11/16/15 at 1700, Until Discontinued, Use acetaminophen first, Routine 1616 (Given - Provider: Jose Dumont RN)2325 (Given - Provider: Elvia Webster RN) 0453 (Given - Provider: Elvia Webster RN)1148 (Given - Provider: Josephine Celeste, DARCY) ceFAZolin (ANCEF) 2g in dextrose 5% 50 mL (COMPLETED) 2 g, Intravenous, ONCE, 1 dose, On Sun11/16/15 at 1030, Administer over 30 Minutes, Redose every 3 hours if CrCl is greater than 20. Redose every 8 hours if CrCl is less than 20., Day of Surgery (Day of Procedure), Indication for (Active or Suspected): Prophylaxis 1115 (Given - Provider: Dakota Varma CRNA) citalopram (CeleXA) tablet 20 mg 20 mg, Oral, DAILY, First dose on Sun11/17/15 at 0900, Until Discontinued, Routine 0811 (Given - Provid er: Josephine Celeste RN) famotidine (PEPCID) tablet 20 mg 20 mg, Oral, 2 TIMES DAILY, First dose on Sun11/16/15 at 2100, Until Discontinued, Routine 2058 (Given - Provider: Elvia Webster RN) 0811 (Given - Provider: Josephine Celeste, DARCY) heparin (porcine) subcutaneous injection 5,000 Units (COMPLETED) 5,000 Units, Subcutaneous, ONCE, 1 dose, On Sun11/16/15 at 1030, Day of Surgery (Day of Procedure), Routine 1113 (Given - Provider: Dakota Varma CRNA - Comment: L shoulder; by WED.) ibuprofen (ADVIL;MOTRIN) tablet 600 mg(Linked Group 1) 600 mg, Oral, EVERY 6 HOURS SCHEDULED, First dose on Jayshree 11/18/15 at 0200, Until Discontinued, - Begin after ketorolac discontinued. , Routine ketorolac (TORADOL) injection 15 mg(Linked Group 1) 15 mg, Intravenous, EVERY 6 HOURS, 5 doses, First dose on Sun11/16/15 at 2000, Last dose on Sun11/17/15 at 2000, Routine 2058 (Given - Provider: Elvia Webster RN) 030 (Given - Provider: Elvia Webster RN)08 (Given - Provider: Josephine Celeste, DARCY) levothyroxine (SYNTHROID) tablet 25 mcg 25 mcg, Oral, EVERY MORNING, First dose on Sun11/17/15 at 0600, Until Discontinued, Routine 653 (Given - Provid er: Elvia Webster RN) senna-docusate (PERICOLACE) 8.6-50 mg per tablet 2 tablet 2 tablet, Oral, 2 TIMES DAILY, First dose on Sun11/16/15 at 2100, Until Discontinued, Routine 2058 (Given - Provider: Elvia Webster RN) 08 (Given - Provider: Josephine Celeste, DARCY) sodium chloride 0.9 % flush 5 mL 5 mL, Intravenous, 2 TIMES DAILY, First dose on Sun11/16/15 at 2100, Until Discontinued, Routine 2104 (Given - Provider: Elvia Webster RN) 0900 (Not Given - Provider: Josephine Celeste, DARCY - Reason: See comment - Comment: IV fluids infusing) Continuous Medication Order 11/15/2015 11/16/2015 11/17/2015 lactated ringers infusion 1,000 mL (CANCELED) 1,000 mL, at 100 mL/hr, Intravenous, CONTINUOUS, Starting on Sun11/16/15 at 1030, Until Sun11/16/15 at 1707, Day of Surgery (Day of Procedure) 1445 (Continued Bag - Provid er: Jose Dumont, RN - Comment: bag from anesthesia) lactated ringers infusion 1,000 mL 1,000 mL, at 100 mL/hr, Intravenous, CONTINUOUS, Starting on Sun11/16/15 at 1500, Until Sun11/17/15 at 1422 1441 (New Bag - Provider: Jose Dumont, RN)2350 (New Bag - Provider: Elvia Webster RN) PRN Medication Order 11/15/2015 11/16/2015 11/17/2015 albuterol (PROVENTIL HFA;VENTOLIN HFA;PROAIR) 90 mcg/actuation inhaler 2 puff 2 puff, Inhalation, EVERY 4 HOURS PRN, Starting on Sun11/16/15 at 1708, Until Sun11/17/15 at 1422, Wheezing, Shortness of Breath, Routine BUpivacaine (PF) (MARCAINE) 0.5 % (5 mg/mL) injection (CANCELED) ONCE PRN, Starting on Sun11/16/15 at 1156, Until Sun11/17/15 at 1422, Intra-Operative (Intra-Procedure), Routine 1156 (Given - Provider: Tom Baltazar MD - Comment: used on trocar sites) HYDROmorphone (DILAUDID) injection 0.2-0.4 mg 0.2-0.4 mg, Intravenous, EVERY 2 HOURS PRN, 3 doses, Starting on Sun11/16/15 at 1708, Until Sun11/17/15 at 1422, Pain, severe or breakthrough pain, Use after all other analgesics for breakthrough pain. 0.2 mg for pain score 3-6, 0.4 mg for score 7-10, Routine HYDROmorphone (DILAUDID) syringe 0.2-0.4 mg (CANCELED) 0.2-0.4 mg, Intravenous, EVERY 5 MIN PRN, Pain, Starting on Sun11/16/15 at 1423, Until Sun11/16/15 at 1707, For moderate pain (4-6) give: 0.2 mg every 5 minute prn For severe pain (7-10) give: 0.4 mg every 5 minutes prn Maximum dose: 4 mg per hour Hold for respiratory rate less than 10 per minute., PACU Recovery 1450 (Given - Provider: Jose Dumont RN)1459 (Given - Provider: Jose Dumont RN)1522 (Given - Provider: Jose Dumont RN) ipratropium-albuterol (COMBIVENT RESPIMAT) inhaler 1 puff 1 puff, Inhalation, EVERY 6 HOURS PRN, Starting on Sun11/16/15 at 1432, Until Sun11/17/15 at 1422, Wheezing, Must be primed prior to first administration., Routine lidocaine (XYLOCAINE) 10 mg/mL (1 %) injection 3 mg 3 mg (0.3 mL), Subcutaneous, ONCE PRN, 1 dose, Starting on Sun11/16/15 at 1708, Until Sun11/17/15 at 1422, for discomfort with PIV insertion, Routine ondansetron (ZOFRAN) injection 4 mg 4 mg, Intravenous, EVERY 8 HOURS PRN, Starting on Sun11/16/15 at 1708, Until Sun11/17/15 at 1422, Nausea, Routine oxyCODONE (ROXICODONE) immediate release tablet 5-10 mg 5-10 mg, Oral, EVERY 3 HOURS PRN, Starting on Sun11/16/15 at 1432, Until Sun11/17/15 at 1422, Pain, 5 mg for pain score 3-6, 10 mg for score 7-10, Routine 1529 (Given - Provider: Jose Dumont RN)1844 (Given - Provider: Josephine Celeste, DARCY)2327 (Given - Provider: Elvia Webster, DARYC) 0453 (Given - Provider: Elvia Webster, DARCY)1148 (Given - Provider: Josephine Celeste, DARCY) polyethylene glycol (MIRALAX) packet 17 g 17 g, Oral, DAILY PRN, Starting on Sun11/16/15 at 1708, Until Sun11/17/15 at 1422, Constipation, Administer if needed per patient's routine or if no bowel movement within 48 hours to achieve: 1) One bowel movement at least every 48 hours, AND 2) Without straining. If multiple bowel medications ordered, consider polyethylene glycol(MIRALAX) first., Routine sodium chloride 0.9 % flush 5-20 mL 5-20 mL, Intravenous, EVERY 1 MIN PRN, Starting on Sun11/16/15 at 1708, Until Sun11/17/15 at 1422, flush, Flush pertains to all indwelling lines. Flush per protocol found in the job aid using the link provided on this medication record., Routine Linked Groups Order Group 1: ketorolac (TORADOL) injection 15 mgJump to med 15 mg, Intravenous, EVERY 6 HOURS, 5 doses, First dose on Sun11/16/15 at 1999, Last dose on Sun11/17/15 at 1999, Routine Followed by ibuprofen (ADVIL;MOTRIN) tablet 600 mgJump to med 600 mg, Oral, EVERY 6 HOURS SCHEDULED, First dose on Jayshree 11/18/15 at 0200, Until Discontinued, - Begin after ketorolac discontinued. , Routine documented in this encounter Care Teams Network Diagnostic Support Specialist Relationship Specialty Start Date End Date Jewels Cramer APRN PCP - General 05/24/10 01/09/18 documented as of this encounter
--- OUTSIDE RECORDS SUMMARY | 2024-02-04 18:39 | XMS_ITS | Encounter Summary ---
[facility] Organization [facility] [place] [address] Care Team Providers Care [employer] Name Role Phone NoreenLatishaandreas Hawkins APRN Primary Care Provider [phone] Reason for Visit * Reason Comments Follow Up Surgery Encounter Details Date Type Department Care Team (Late st Contact Info) Description 01/01/2018 2:45 PM EDT Office [place] [address] Kiah Loomis APRN [facility] [place] [address] History of breast cancer Social History Tobacco [...] Progress Notes * Kiah Loomis APRN - 01/01/2018 2:45 PM EDT Images from the original note were not included. Kelley returns today in surgical follow up of left breast cancer. She is a 62 year old patient of Taniya. Kelley presented for screening mammography in November,. This revealed a concerning lesion in the upper, outer left breast. Additional imaging including mammogram and ultrasound confirmed a solid 8mmlesion. There was also a question of an axillary node. Biopsy of the breast revealed low to intermediate grade IDC which was ER/VT+ and HER2-. ?? MRI was obtained which [...] January, but started up again last year. currrently not working. Under treatment for bilateral LE cellulitis. Surgical pathology revealed: DIAGNOSIS CORRECTED REPORT (see Discussion) Specimen (s): A - Left partial mastectomy B - Left axillary sentinel nodes Histologic Type: Invasive ductal carcinoma Tumor Grade: Low (High, Intermediate, Low) Pbznto-[id number]-Tfubixyqgv Score: 5 Tubular Differentiation: 1 Mitotic Rate: [...] receptors, and FISH performed on prior bx [id number] - see separate report. 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 Noevidence of local or systemic recurrence. Plan ongoing annual mammograms- next due in December 2018. I will see Kelley at that time. She will callwith any questions or concerns in the interim. documented in this encounter Plan of Treatment Upcoming Encounters Date Type Department Care Team (Late st Contact Info) Description 12/04/2024 11:00 AM EDT Office Visit [place] [phone] Roddy Olson MD [facility] [place] [address] documented as of this encounter Visit Diagnoses Diagnosis History of breast cancer Personal history of malignant neoplasm of breast documented in this encounter Care Teams [employer] Relationship Specialty Start Date End Date Jewels Sorto APRN PCP - General 05/24/10 01/09/18 documented as of this encounter
--- OUTSIDE RECORDS SUMMARY | 2024-02-04 18:39 | XMS_ITS | Encounter Summary ---
Author Organization [facility] [place] [address] Care Team Providers Care Sales Force Administrator Name Role Phone Jewels Sorto Shruthi BAUM Primary Care Provider Encounter Details Date Type Department Care Team (Late st Contact Info) Description 08/28/2017 Ancillary Procedure [place] [phone] Giuseppe Shaw MD [facility] DR HEMATOLOGY [place] [address] Social History Tobacco Use Types Packs/Day Years [...] AM EDT Office [place] [phone] Roddy Olson MD [facility] [place] [address] documented as of this encounter Procedures Procedure Name Priority Date/Time Associated Diagnosis Comments FILM LIBRARY STORAGE ONLY CT CHEST Routine 08/28/2017 12:00 AM EST documented in this encounter Results * Film Library- Storage Only CT Chest (08/28/2017 12:00 AM EST) Narrative RAD - 08/21/2019 6:00 PM EST This exam is auto-finalizing. It's purpose is for storage only. Giuseppe Shaw MD G FILM LIBRARY ORD ERABLES [place], [place] documented in this encounter Visit Diagnoses Not on filedocumented in this encounter Care Teams Sales Force Administrator Relationship Specialty Start Date End Date Jewels Sorto APRN PCP - General 05/24/10 01/09/18 documented as of this encounter
--- OUTSIDE RECORDS SUMMARY | 2024-02-04 18:39 | XMS_ITS | Encounter Summary ---
Author Organization [facility] Address [facility] [place] [address] Care Team Providers Care Final Block Press Operator Name Role Phone [place] Shruthi BAUM Primary Care Provider [phone] Reason for Visit * Reason Comments Radiation Follow-up Encounter Details Date Type Department Care Team (Late st Contact Info) Description 12/06/2015 3:30 PM EDT Office Visit Radiation Oncology at [address] [phone] Maegan Eng MD [facility] [place] [address] Malignant neoplasm of left female breast, unspecified [...] Sign Reading Time Taken Comments Blood Pressure 120/66 12/06/2015 3:43 PM EDT Pulse 79 12/06/2015 3:43 PM EDT Temperature 36.7 ??C (98.1 ??F) 12/06/2015 3:43 PM ED T Respiratory Rate 18 12/06/2015 3:43 PM EDT Oxygen Saturation - - Inhaled Oxygen Concentration - - Weight 93.9 kg (207 lb) 12/06/2015 3:43 PM EDT Height - - Body Mass Index 32.95 11/22/2015 12:34 PM EDT documented in this encounter Patient Instructions * Patient Instructions* Maegan Eng MD - 12/06/2015 4:02 PM EDT Your exam shows that you are healing nicely from radiotherapy & there is no evidence of cancer. You may resume your regular deodorant on your left underarm. You may use a straight/regular razor on your left underarm. You may expose the irradiated area to sun, but it is recommended that you apply sunscreen with an SPF of @ least #45 on the irradiated area prior to exposing it to sun. You may swim in chlorinated water. We will mail you a letter with an appointment to see me or a Radiation Oncology dip filler in 6 months. documented in this encounter Progress Notes * Maegan Eng MD - 12/06/2015 3:48 PM EDT CC: Sched'd fu s/p xrt completion. HPI: 60 y/o f who completed xrt 6 wks ago for breast ca, L, IDC, low gr, ER+MI+, Fdj2gqy-, s/p lumpectomy & SNB, pT1b pN1a, stage [...] not enough material present in previous bx ([id number]) to perform mi smatch repair IHC. Cytopath: Pelvic wash neg for malignancy. 11/22/[address] Carey, w/initiation of arimidex. ROS: Tired since hysterectomy; energy level was increasing prior to hysterectomy & then decreased after hysterectomy; energy level better than 1 wk ago. Skin w/in irrad'd area healed well. Past Medical History Diagnosis Date ??? Breast cancer, left breast 2014 Past Surgical History Procedure Laterality Date ??? Pro excise breast les w xray marker Left 02/16/2015 EXCISION LESION, BREAST W/ PREOP.MARKER (NEEDLE LOC.) performed by Shiloh Cruz MD at [facility] ??? Pro bx/remv, lymph node, deep axill Left 02/16/2015 BIOPSY OR EXCISION OF LYMPH NODE(S), OPEN, DEEP AXILLARY NODE(S) performed by Shiloh Cruz MD at [facility] ??? Pro identify sentinel node Left 02/16/2015 SENTINEL NODE INJECTION performed by Shiloh Cruz MD at [facility] ??? Left 02/16/2015 MODIFIER WITH NEEDLE LOC. performed by Shiloh Cruz MD at [facility] ??? Left 02/16/2015 MODIFIER SENTINEL NODE EXCISION performed by Shiloh Cruz MD at [facility] ??? Pro laparoscopy w tot hysterect uterus 250 gram or less N/A 11/16/2015 LAPAROSCOPY, HYSTERECTOMY, UTERUS<250GM, ROBOTIC ASSIST performed by Meghan Baltazar MD at [facility] MAIN OR ??? Pro lap, pelvic lymphadenectomy/bx N/A 11/16/2015 LAPAROSCOPY,W\BILATERAL TOTAL PELVIC LYMPHADENECTOMY, PERIAORTIC LYMPH NODE SAMPLING, ROBOTIC performed by Meghan Baltazar MD at [facility] MAIN OR Physical Exam Constitutional: She is oriented to person, place, and time. She appears well- developed and well-nourished. No distress. BP 120/66 (Patient Position: Sitting) Pulse 79 Temp 36.7 ??C (98.1 ??F) (Oral) Resp 18 Wt 93.9 kg (207 lb) BMI 32.95 kg/m2 HENT: Head: Normocephalic and atraumatic. Eyes: [...] upper abdomen. Musculoskeletal: Normal range of motion. She exhibits [...] thought contentnormal. A: Healing well post xrt. P: Instructions given for care of irrad'd skin. Rtc [address] Baltazar 12/08/15. Dr. Cruz w/leatha 12/16/15. Dr. Carey 12/20/15. documented in this encounter Plan of Treatment Upcoming Encounters Date Type Department Care Team (Late st Contact Info) Description 12/04/2024 11:00 AM EDT Office [place] [address] Roddy Olson MD [facility] [place] [address] documented as of this encounter Visit Diagnoses Diagnosis Malignant neoplasm of left female breast, unspecified site of breast documented in this encounter Care Teams Final Block Press Operator Relationship Specialty Start Date End Date Jewels Sorto APRN PCP - General 05/24/10 01/09/18 documented as of this encounter
--- OUTSIDE RECORDS SUMMARY | 2024-02-04 18:39 | XMS_ITS | Encounter Summary ---
Author Organization [facility] Address [facility] [place] [address] Care Team Providers Care Long Term Care Pharmacist Name Role Phone StauntonJewels ca Shruthi BAUM Primary Care Provider [phone] Reason for Visit * Reason Comments Radiation Follow-up Encounter Details Date Type Department Care Team (Late st Contact Info) Description 05/07/2017 2:30 PM EST Office Visit Radiation Oncology at [address] [address] Maegan Eng MD [facility] [place] [address] Malignant neoplasm of left female breast, unspecified estrogen receptor status, unspecified site of breast Social History Tobacco [...] Sign Reading Time Taken Comments Blood Pressure 121/66 05/07/2017 2:31 PM EST Pulse 70 05/07/2017 2:31 PM EST Temperature 36.8 ??C (98.2 ??F) 05/07/2017 2:31 PM ES T Respiratory Rate 16 05/07/2017 2:31 PM EST Oxygen Saturation 97% 05/07/2017 2:31 PM EST Inhaled Oxygen Concentration - - Weight 83.2 kg (183 lb 6.4 oz) 05/07/2017 2:31 P M EST Height - - Body Mass Index 29.2 12/14/2016 1:43 PM EDT documented in this encounter Patient Instructions * Patient Instructions* Maegan Eng MD - 05/07/2017 2:30 PM EST Your exam is without worrisome finding. A letter will be mailed to you with an appointment for followup in 6 months, @ which time you wouldbe seen by me or by one of the Radiation Oncology Advanced Practice RNs. documented in this encounter Progress Notes * Maegan Eng MD - 05/07/2017 2:30 PM EST CC: Sched'd fu s/p xrt completion. HPI: 60 y/o f who completed xrt 18.5 mos ago for breast ca, L, IDC, low gr, ER+MS+, [id number]-, s/p lumpectomy & SNB, pT1b pN1a, stage [...] not enough material present in previous bx ([id number]) to perform mi smatch repair IHC. Cytopath: Pelvic wash neg for malignancy. 11/22/[address] Carey, w/initiation of arimidex, which she continues. 12/21/16 B mmg: Neg. 12/21/16 fu w/Annika Loomis APRN Surg Onc; rtc 1 yr w/mmg. ROS: No problem w/breasts; no breast lump; no nipple discharge. No pain. No swelling hand/arm. ROM arms around shoulders ok. Appetite ok. Energy level good; works 50-57 hrs/wk @ [employer]. Past Medical History: Diagnosis Date ??? Breast cancer, left breast 2014 ??? Former smoker 12/08/2015 30 pack year history. ??? Obesity (BMI 30-39.9) Past Surgical History: Procedure Laterality Date ??? APPENDECTOMY ??? BREAST BIOPSY Left 12/2014 ??? BREAST LUMPECTOMY Left 01/2015 ??? PRO BX/REMV, LYMPH NODE, DEEP AXILL Left 02/16/2015 BIOPSY OR EXCISION OF LYMPH NODE(S), OPEN, DEEP AXILLARY NODE(S) performed by Shiloh Cruz MD at [facility] ??? PRO COLONOSCOPY, REMV LESN, SNARE N/A 08/10/2016 COLONOSCOPY, POLYPECTOMY, REMOVAL LESION BY SNARE (WRVU 4.67) performed by Lokesh Sheriff MDat [facility] ??? PRO EXCISE BREAST LES W XRAY MARKER Left 02/16/2015 EXCISION LESION, BREAST W/ PREOP.MARKER (NEEDLE LOC.) performed by Shiloh Cruz MD at [facility] ??? PRO IDENTIFY SENTINEL NODE Left 02/16/2015 SENTINEL NODE INJECTION performed by Shiloh Cruz MD at [facility] ??? PRO LAP, PELVIC LYMPHADENECTOMY/BX N/A 11/16/2015 LAPAROSCOPY,W\BILATERAL TOTAL PELVIC LYMPHADENECTOMY, PERIAORTIC LYMPH NODE SAMPLING, ROBOTIC performed by Meghan Baltazar MD at [facility] ??? PRO LAPAROSCOPY W TOT HYSTERECT UTERUS 250 GRAM OR LESS N/A 11/16/2015 LAPAROSCOPY, HYSTERECTOMY, UTERUS<250GM, ROBOTIC ASSIST performed by Meghan Baltazar MD at [facility] Physical Exam Constitutional: She is oriented to person, place, and time. She appears well- developed and well-nourished. No distress. BP 121/66 (Patient Position: Sitting) Pulse 70 Temp 36.8 ??C (98.2 ??F) (Oral) Resp 16 Wt 83.2 kg (183 lb 6.4 oz) SpO2 97% BMI 29.2 kg/m2 HENT: Head: Normocephalic and atraumatic. Eyes: [...] tenderness. Left breast exhibits skin change ( Minimal hyperpigmentation, consistent w/not unexpected appearance post xrt.). Left breast exhibits no inverted nipple, no mass, no nipple discharge and no tenderness. Abdominal: Soft. She exhibits no distension and no mass. There is no tenderness. There is no rebound and no guarding. Abdominal exam limited to upper abdomen. Musculoskeletal: Normal range of motion. No edema. Lymphadenopathy: Head (right side): No submental, no [...] is normal. Judgment and thought contentnormal. A: [place]. P: Rtc 6 mos. documented in this encounter Plan of Treatment Upcoming Encounters Date Type Department Care Team (Late st Contact Info) Description 12/04/2024 11:00 AM EDT Office [place] [address] Roddy Olson MD [facility] [place] [address] documented as of this encounter Visit Diagnoses Diagnosis Malignant neoplasm of left female breast, unspecified estrogen receptor status, unspecified site of breast documented in this encounter Care Teams Long Term Care Pharmacist Relationship Specialty Start Date End Date Jewels Sorto APRN PCP - General 05/24/10 01/09/18 documented as of this encounter
--- OUTSIDE RECORDS SUMMARY | 2024-02-04 18:39 | XMS_ITS | Encounter Summary ---
Author Organization [facility] Address [facility] [place] [address] Care Team Providers Care Tailercpa Name Role Phone ArmstrongJewels ca Shruthi BAUM Primary Care Provider [phone] Reason for Visit * Reason Comments Post Hospital Discharge Encounter Details Date Type Department Care Team (Late st Contact Info) Description 12/08/2015 2:30 PM EDT Office Visit [place] [address] Meghan Baltazar MD [facility] DR [place] [address] Former smoker; Obesity, unspecified obesity severity, unspecified obesity type Social History Tobacco Use Types Packs/Day Years [...] Sign Reading Time Taken Comments Blood Pressure 111/63 12/08/2015 1:51 PM EDT Pulse 88 12/08/2015 1:51 PM EDT Temperature 36.7 ??C (98.1 ??F) 12/08/2015 1:51 PM ED T Respiratory Rate 20 12/08/2015 1:51 PM EDT Oxygen Saturation 97% 12/08/2015 1:51 PM EDT Inhaled Oxygen Concentration - - Weight 93.3 kg (205 lb 11 oz) 12/08/2015 1:51 PM EDT Height 168.8 cm (5' 6.46) 12/08/2015 1:51 PM ED T Body Mass Index 32.74 12/08/2015 1:51 PM EDT documented in this encounter Progress Notes * Nithin Monroy P - 12/08/2015 2:13 PM EDT Division [place] [address] Postoperative Visit: Patient Active Problem List Diagnosis Code ??? Dietary counseling and surveillance Z71.3 ??? Malignant neoplasm of upper-outer quadrant of left female breast C50.412 ??? Abnormal ultrasound of endometrium R93.5 ??? Obesity E66.9 ??? Abnormal endometrial ultrasound R93.5 ??? Former smoker Z87.891 Subjective: Kelley Jensen returns to the office today for her postoperative visit. She has a history of breastcancer and a recent endometrial biopsy demonstrated small fragment of highly atypical epithelium suspicious for carcinoma so decision was made to proceed to OR for surgical management. On 11/16/2015edilma underwent a robotic assisted total laparoscopic hysterectomy, bilateral salpingo- oophorectomy, bilateral pelvic and para-aortic lymphadenectomy. Her postoperative course was uncomplicated. She has been doing well since surgery with some mild tenderness in her RLQ. She has stopped taking narcotic pain medications and is having regular bowel movements. She does report occasional constipation that is relieved by increased fiber in her diet. Her energy level is improving but she still gets tired out which is baseline for her. She is eating well. She endorses occasional shortness of breath which she attrributes to being a former smoker (history of 30 pack year smoking history). She denies fevers, chills, dysuria, incisional concerns, abdominal pain, vaginal bleeding, nausea, vomiting or diarrhea. ROS: As per HPI, otherwise all systems reviewed and negative. Complete medical history reviewed and updated in chart. Objective: Vitals: 12/08/15 1351 BP: 111/63 Pulse: 88 Resp: 20 Temp: 36.7 ??C (98.1 ??F) SpO2: 97% Weight: 93.3 kg (205 lb 11 oz) Height: 168.8 cm (5' 6.46) Body mass index is 32.74 kg/(m^2). Body surface area is 2.09 meters squared. Physical Exam Gen: NAD. Pleasant. Presents with daughter. Neuro: Alert and oriented. Cardiac: RRR. No murmurs, rubs, or gallops. Pulm: CTAB. No wheezes, rales, or rhonci. Abd: Soft. Non tender. No rebound or guarding. Well approximated laparoscopic incisions with some residual dried surgical glue in place. Extremities: No lower extremity edema or calve tenderness. Surgical Pathology: DIAGNOSIS A - Uterus, cervix, and bilateral [...] Six lymph nodes negative for malignancy (0/6). Assessment and Plan: Kelley Jensen is a 60 y.o. who is now s/p RATLH/BSO, sentinel pelvic lymphadenectomy. She is doingwell postoperatively and is advised that she may resume full activities at 6 weeks postoperatively.I reviewed her pathology with her and have given her copies of her pathology report and operative note for her records. While her preoperative biopsy was highly suspicious for endometrial cancer, her final uterine specimen did not show any malignancy. Given the benign nature of her disease, she thankfully does not require any further gynecologic oncology care and is kindly referred back to her usual providers for ongoing care. She will not need any further pap screening in the future. Pt seen, discussed and plan formulated with Dr. Baltazar, Folder Gluer Operator/Oncology Attending. NITHIN MONROY MD PGY4 12/08/2015 I have seen and examined the patient and reviewed and edited the resident's above history and I agree with the details as written. The assessment and plan were formulated in discussion with me and I agree with them as documented. Meghan Baltazar MD documented in this encounter Plan of Treatment Upcoming Encounters Date Type Department Care Team (Late st Contact Info) Description 12/04/2024 11:00 AM EDT Office Visit [place] [address] Roddy Olson MD [facility] [place] [address] documented as of this encounter Visit Diagnoses Diagnosis Former smoker Personal history of tobacco use, presenting hazards to health Obesity, unspecified obesity severity, unspecified obesity type documented in this encounter Care Teams Tailercpa Relationship Specialty Start Date End Date Jewels oSrto APRN PCP - General 05/24/10 01/09/18 documented as of this encounter
--- OUTSIDE RECORDS SUMMARY | 2024-02-04 18:39 | XMS_ITS | Encounter Summary ---
Author Organization [facility] Address [facility] [place] [address] Care Team Providers Care Chaplain Name Role Phone MccrearyJewels ca Shruthi BAUM Primary Care Provider [phone] Encounter Details Date Type Department Care Team (Latest Contact Info) Description 12/16/2015 10:41 AM EDT - 12/16/2015 11:59 PM EDT Hospital [place] [address] Shiloh Cruz MD [facility] [place] [address] Malignant neoplasm of left female breast, unspecified [...] Reported on 06/12/2016 anastrozole (ARIMIDEX) 1 mg TabletIndications:Armando lopez neoplasm of upper-outer quadrant of left female breast Take 1 tablet by mouth daily. 30 tablet 11 11/22/2015 01/24/2016 acetaminophen (TYLENOL) 650 mg Tablet Sustained Release [...] AM EDT Office [place] [address] Roddy Olson MD [facility] [place] [address] documented as of this encounter Procedures Procedure Name Priority Date/Time Associated Diagnosis Comments MAMMO 2D DIGITAL DIAG EDIN WITH CAD BILATERAL Routine 12/16/2015 11:05 AM EDT Malignant neoplasm of left female breast, unspecified site of breast documented in this encounter Results * Mammo Diag Edin Bilateral (12/16/2015 11:05 AM EDT) Anatomical Region Laterality Modality Breast Bilateral Mammography Narrative 12/16/2015 11:14 AM EDT REASON FOR EXAM: Screening. History of left breast cancer. TECHNIQUE: CC and MLO views were obtained of both breasts. Computer aided detection was used. 3D tomosynthesis images were obtained in addition to 2D images. Comparison: The study is compared with prior images. FINDINGS: Breast density:The breasts are heterogeneously dense, which may obscure small masses. There are no suspicious microcalcifications, masses, or areas of distortion. There are post treatment changes in the left breast. CONCLUSION: No mammographic evidence of malignancy. RECOMMENDATION: Routine screening. BIRADS CATEGORY 2: BENIGN FINDINGS * ??[employer] and [employer] Society of [...] breast documented in this encounter Care Teams Chaplain Relationship Specialty Start Date End Date Jewels Sorto APRN PCP - General 05/24/10 01/09/18 documented as of this encounter
--- OUTSIDE RECORDS SUMMARY | 2024-02-04 18:39 | XMS_ITS | Encounter Summary ---
Author Organization [facility] Address [facility] [place] [address] Care Team Providers Care Safety Instruction Police Officer Name Role Phone Amina Mckeon Primary Care Provider + Encounter Details Date Type Department Care Team (Latest Contact Info) Description 03/21/2018 - 03/21/2018 11:59 PM EDT Hospital Encounter [place] [phone] Ana Paula Nava, GEOTHERMAL OPERATIONS MANAGER [address] [place] [address] [place] [address] Discharge Disposition: Home Social History Tobacco Use [...] AM EDT Office [place] [address] Roddy Olson MD [facility] [place] [address] documented as of this encounter Procedures Procedure Name Priority Date/Time Associated Diagnosis Comments FILM LIBRARY- STORAGE ONLY DXA IMAGES Routine 03/21/2018 12:00 AM EDT documented in this encounter Results * Film Library- Storage Only DXA Images (03/21/2018 12:00 AM EDT) Narrative RAD - 03/22/2018 4:21 PM EDT This exam is for storage only and is auto-finalizing. Ana Paula Nava APRN IMG FILM LIBRARY ORD ERABLES [place], [place] documented in this encounter Visit Diagnoses Not on filedocumented in this encounter Care Teams Safety Instruction Police Officer Relationship Specialty Start Date End Date Amina Mckeon PA PCP - General Orthopaedic Surgery 01/10/18 07/02/18 documented as of this encounter
--- OUTSIDE RECORDS SUMMARY | 2024-02-04 18:39 | XMS_ITS | Encounter Summary ---
Author Organization [facility] [address] Care Team Providers Care Manager Banking Name Role Phone Jewels Sorto APRN Primary Care Provider [phone] Reason for Visit * Reason Comments Breast Cancer Encounter Details Date Type Department Care Team (Late st Contact Info) Description 06/12/2016 2:30 PM EST Office Visit Hematology/Oncology at [address] [address] Hector Carey MD [address] [place] [address] Malignant neoplasm of upper-outer quadrant of [...] Sign Reading Time Taken Comments Blood Pressure 133/70 06/12/2016 2:10 PM EST Pulse 78 06/12/2016 2:10 PM EST Temperature 36.6 ??C (97.9 ??F) 06/12/2016 2:10 PM ES T Respiratory Rate 16 06/12/2016 2:10 PM EST Oxygen Saturation 99% 06/12/2016 2:10 PM EST Inhaled Oxygen Concentration - - Weight 88.5 kg (195 lb) 06/12/2016 2:10 PM EST Height 168.8 cm (5' 6.46) 06/12/2016 2:10 PM ES T copied Body Mass Index 31.04 06/12/2016 2:10 PM EST documented in this encounter Progress Notes * Hector Carey MD - 06/12/2016 2:30 PM EST Diagnosis: 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 The tumor was 0.7 cm, low-grade, ER/IL positive, with 1 of 3 sentinel positive nodes HER-2 was negative. 01/2015 .S/P Dose dense AC followed by T and XRT to breast, now on Arimidex x 15 yrs SUBJECTIVE: Kelley comes in today for followup on her breast cancer. It has been a year and a half since her initial diagnosis and a year since she finished her adjuvant chemotherapy. She has been on Arimidex 1 mg daily and tolerating that well although she does have some arthritis symptoms especially in her hands and a little bit in her feet. She has a little swelling on the dorsum of her right foot on occasion. She has some small nodules associated with sore joints in her fingers. She does have a family history of rheumatoid arthritis but other than these arthritis symptoms and the findings noted there is nothing to suggest rheumatoid arthritis in her. Otherwise through review of systems is negative with no new lumps or bumps within the breasts, no unusual bone pains, no other symptoms or problems. Her hair has grown back and she has already had it cut and is quite pleased with how it is doing. She is not having any neuropathy symptoms or other difficulties. Past medical history and social history were [...] as needed for Pain.40 tablet 0 ??? citalopram (CELEXA) 20 mg Tablet Take 1 tablet by mouth daily. 60 tablet 6 ??? hydrochlorothiazide (HYDRODIURIL) 25 mg Tablet Take [...] hours as needed for Wheezing. Reported on 06/12/2016 ??? EMOLLIENT BASE (CREAM BASE TOP) Apply topically. Reported on 06/12/2016 No current facility-administered medications on file prior to visit. . No Known Allergies The patient is currently on disability from her breast cancer. 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 Hematological: Negative for adenopathy. BP 133/70 (Patient Position: Sitting) Pulse 78 Temp 36.6 ??C (97.9 ??F) (Oral) Resp 16 Ht 168.8 cm (5' 6.46) Comment: copied Wt 88.5 kg (195 lb) SpO2 99% BMI 31.04 kg/m2 Head: Normocephalic, without obvious abnormality, atraumatic [...] ?? BIRADS CATEGORY 2: BENIGN FINDINGS ?? Review of her laboratory shows a white count of 3.89, hemoglobin 14.3, hematocrit 41.4, platelet count of 202,000 absolute neutrophil count is 2.66. CMP shows normal electrolytes, a creatinine of 0.68, calcium of 8.8 and ALP of 95 and normal liver tests. ASSESSMENT/PLAN: Kelley is doing well with no evidence of recurrent breast cancer now a year and a half after initial diagnosis and adjuvant treatment. She remains on Arimidex and is tolerating that well. I do not think there is an association between her arthritis symptoms, would seem more like osteoarthritis and the medication but we did discuss the issue. She is going to try a bit of Aleve as Advil has bothered her stomach a bit. There is a chance however, she will not tolerate that either and Tylenol is helping those symptoms as well. From our standpoint we will see her back in 6 months time. Her next mammogram is due in November again and will be ordered through her surgeon at [facility]. She will let us know if there are issues or problems in the interim. documented in this encounter Plan of Treatment Upcoming Encounters Date Type Department Care Team (Late st Contact Info) Description 12/04/2024 11:00 AM EDT Office [place] [address] Roddy Olson MD [facility] [place] [place] [address] documented as of this encounter Procedures Procedure Name Priority Date/Time Associated Diagnosis Comments LAB SCAN 06/12/2016 12:00 AM EST documented in this encounter Results * SCAN DOC: LAB (06/12/2016 12:00 AM EST) Scanning Provider MEDIA MGR SCAN EXT O RDR/RSLT documented in this encounter Visit Diagnoses Diagnosis Malignant neoplasm of upper-outer quadrant of left female breast Malignant neoplasm of upper-outer quadrant of female breast documented in this encounter Care Teams Manager Banking Relationship Specialty Start Date End Date Jewels Sorto APRN PCP - General 05/24/10 01/09/18 documented as of this encounter
--- OUTSIDE RECORDS SUMMARY | 2024-02-04 18:40 | XMS_ITS | Encounter Summary ---
Author Organization [facility] Address [facility] [place] [address] Care Team Providers Care Modeling Agent Name Role Phone Jewels Sorto APRN Primary Care Provider [phone] Reason for Visit * Reason Comments Chemotherapy * Treatment/Therapy Plan Authorization (Routine) - Closed Specialty Diagnoses / Procedures Referred By Contac t Referred To Contact Hematology and Oncology Diagnoses Malignant neoplasm of unspecified site of left female breast Procedures TC PACLITAXEL, 1MG, INJ Hector Carey MD [address] [place] [address] Hector Carey MD [address] [place] [address] Referral ID Status Reason Start Date Expiration Date Visits Re quested Visits Authorized [id number] Closed 08/18/2015 08/17/2016 24 24 Encounter Details Date Type Department Care Team (Late st Contact Info) Description 08/09/2015 9:30 AM EST Infusion Hematology Oncology at [address] [address] Malignant neoplasm of central portion of left female breast Social History Tobacco Use Types Packs/Day Years Used Date Smoking Tobacco: Former Cigarettes Smokeless Tobacco: Never Comments:2 months ago quit Alcohol Use Standard Drinks/Week Comments No 0 (1 standard drink = 0.6 oz pur e alcohol) Sex and Gender Information Value Date Recorded Sex Assigned at Not on file Gender Identity Not on file Sexual Orientation Not on file documented as of this encounter Progress Notes * Fanta Sánchez RN - 08/09/2015 10:09 AM EST TIME TREATMENT STARTED: 930 TIME TREATMENT ENDED: 1130 Kelley Jensen, 60 y.o. female with diagnosis of breast cancer is here for chemotherapy infusion oftaxol. CYCLE: 4 DAY: 8 S: Pt. offers no complaints at this time. O: Chemotherapy orders independently verified for correct drug name, route and dosage per patient'sheight, weight and BSA by dl RN and onsite pharmacist. Kelley arrives with [employer] accessed. Aloxi, Decadron, Benadryl, Pepcid Taxol REACTIONS (DESCRIPTION, TIME, INTERVENTION AND EFFECTIVENESS) none A: Pt. Tolerated treatment well. Kelley Jensen confirms that all questions and issues have been addressed. P: Return to clinic per routine. documented in this encounter Plan of Treatment Upcoming Encounters Date Type Department Care Team (Late st Contact Info) Description 12/04/2024 11:00 AM EDT Office [place] [address] Roddy Olson MD [facility] [place] [address] documented as of this encounter Visit Diagnoses Diagnosis Malignant neoplasm of central portion of left female breast Malignant neoplasm of central portion of female breast documented in this encounter Administered Medications Inactive Administered Medications - up to 3 most recent administrations Medication Order MAR Action Action Date Dose Rate Site dexamethasone (DECADRON) injection 10 mg 10 mg, Intravenous, ONCE, 1 dose, On Sun08/09/15 at 0945, Administer 30 minutes prior to PACLitaxel Given 08/09/2015 9:52 AM EST 10 mg diphenhydrAMINE (BENADRYL) injection 25 mg 25 mg, Intravenous, ONCE, 1 dose, On 08/09/15 at 0945, Administer 30 minutes prior to PACLitaxel, Routine Given 08/09/2015 9:47 AM EST 25 mg famotidine (PEPCID) injection 20 mg 20 mg, Intravenous, ONCE, 1 dose, On Sun08/09/15 at 0945, Administer 30 minutes prior to PACLitaxel Given 08/09/2015 9:50 AM EST 20 mg PACLitaxel (TAXOL) 166 mg in dextrose 5% Non-PVC 277.6667 mL chemo infusion 166 mg (rounded from 165.6 mg = 80 mg/m2/dose ? 2.07 m2 Treatment Plan BSA from Recorded weight), Intravenous, ONCE, 1 dose, On Sun08/09/15 at 1045, Administer over 60 Minutes New Bag 08/09/2015 10:31 AM EST 166 mg 277.7 mL/hr palonosetron (ALOXI) injection 0.25 mg 0.25 mg, Intravenous, ONCE, 1 dose, On Sun08/09/15 at 0945, Routine Given 08/09/2015 9:55 AM EST 0.25 mg documented in this encounter Care Teams Modeling Agent Relationship Specialty Start Date End Date Jewels Sorto APRN PCP - General 05/24/10 01/09/18 documented as of this encounter
--- OUTSIDE RECORDS SUMMARY | 2024-02-04 18:40 | XMS_ITS | Encounter Summary ---
Author Organization [facility] [place] [address] Care Team Providers Care Line Walker Name Role Phone Jewels Sorto APRN Primary Care Provider [phone] Reason for Visit * Reason Comments Chemotherapy Taxol, Cycle 2 Day 8 * Treatment/Therapy Plan Authorization (Routine) - Closed Specialty Diagnoses / Procedures Referred By Contalejandro t Referred To Contact Hematology and Oncology Diagnoses Malignant neoplasm of unspecified site of left female breast Procedures TC PACLITAXEL, 1MG, INJ Hector Carey MD [address] [place] [id number] Hector Carey MD [address] [place] [phone] Referral ID Status Reason Start Date Expiration Date Visits Re quested Visits Authorized [id number] Closed 08/18/2015 08/17/2016 24 24 Encounter Details Date Type Department Care Team (Late st Contact Info) Description 06/28/2015 9:30 AM EST Infusion Hematology Oncology at [address] [address] Breast cancer, left breast Social History Tobacco Use Types Packs/Day [...] as of this encounter Progress Notes * Aleisha Landis RN - 06/28/2015 9:17 AM EST INFUSION THERAPY ADMINISTRATION NOTES DIAGNOSIS: Breast Cancer CYCLE # 2. Day 8 REASON FOR VISIT: Taxol Infusion SUBJECTIVE Kelley offers no complaints. OBJECTIVE LAB DATA: WBC 4.76, HGB 10.5, PLTS 286, ANC 3.17, Creat 0.80 IV ACCESS: Mediport Pre administration: Chemotherapy orders independently verified for drug name, route, and dosage per patient's height, weight and BSA by Aleisha Landis RN and Maira Wang RPh. REACTIONS (DESCRIPTION, TIME, INTERVENTION AND EFFECTIVENESS) none ASSESSMENT Kelley was awake, alert and tolerated treatment well. PLAN Return to clinic per routine. documented in this encounter Plan of Treatment Upcoming Encounters Date Type Department Care Team (Late st Contact Info) Description 12/04/2024 11:00 AM EDT Office [place] [address] Roddy Olson MD [facility] [place] [address] documented as of this encounter Visit Diagnoses Diagnosis Breast cancer, left breast Malignant neoplasm of breast (female), unspecified site documented in this encounter Administered Medications Inactive Administered Medications - up to 3 most recent administrations Medication Order MAR Action Action Date Dose Rate Site dexamethasone (DECADRON) injection 10 mg 10 mg, Intravenous, ONCE, 1 dose, On Sun06/28/15 at 0945, Administer 30 minutes prior to PACLitaxel Given 06/28/2015 9:32 AM EST 10 mg diphenhydrAMINE (BENADRYL) injection 25 mg 25 mg, Intravenous, ONCE, 1 dose, On Sun06/28/15 at 0945, Administer 30 minutes prior to PACLitaxel, Routine Given 06/28/2015 9:36 AM EST 25 mg famotidine (PEPCID) injection 20 mg 20 mg, Intravenous, ONCE, 1 dose, On Sun06/28/15 at 0945, Administer 30 minutes prior to PACLitaxel Given 06/28/2015 9:34 AM EST 20 mg heparin, porcine 100 unit/mL flush 500 Units 500 Units, Intravenous, ONCE PRN, Starting on Sun06/28/15 at 0916, Until Sun06/28/15 at 1353, Line Care, Refer to Intravenous (IV) Procedure: Accessing Implanted Vascular Access Devices (654) procedure and/or Intravenous (IV) Job Aid: Adult Flushing & Catheter Care (0704) job aid for additional information regarding guidelines and administration., Routine Given 06/28/2015 11:15 AM EST 500 Units PACLitaxel (TAXOL) 166 mg in dextrose 5% Non-PVC 277.6667 mL chemo infusion 166 mg (rounded from 165.6 mg = 80 mg/m2/dose ? 2.07 m2 Treatment Plan BSA from Recorded weight), Intravenous, ONCE, 1 dose, On Sun06/28/15 at 1045, Administer over 60 Minutes New Bag 06/28/2015 10:08 AM EST 166 mg 278 mL/hr palonosetron (ALOXI) injection 0.25 mg 0.25 mg, Intravenous, ONCE, 1 dose, On Sun06/28/15 at 0945, Routine Given 06/28/2015 9:31 AM EST 0.25 mg sodium chloride 0.9 % flush 5-20 mL 5-20 mL, Intravenous, EVERY 1 MIN PRN, Starting on Sun06/28/15 at 0916, Until Sun06/28/15 at 1353, Line Care, Flush pertains to all indwelling lines. Flush per protocol found in the job aid using the link provided on this medication record. Refer to Intravenous (IV) Job Aid: Adult Flushing & Catheter Care (2690) job aid for additional information regarding guidelines and administration., Routine Given 06/28/2015 11:15 AM EST 20 mLs documented in this encounter Care Teams Line Walker Relationship Specialty Start Date End Date Jewels Sorto APRN PCP - General 05/24/10 01/09/18 documented as of this encounter
--- OUTSIDE RECORDS SUMMARY | 2024-02-04 18:40 | XMS_ITS | Encounter Summary ---
Author Organization [facility] [place] [address] Care Team Providers Care Analytics Consultant Name Role Phone Jewels Sorto APRN Primary Care Provider [phone] Reason for Visit * Reason Comments Chemotherapy Cycle 2, Day 1 * Treatment/Therapy Plan Authorization (Routine) - Closed Specialty Diagnoses / Procedures Referred By Saad escobar Referred To Contact Hematology and Oncology Diagnoses Malignant neoplasm of unspecified site of left female breast Procedures TC PACLITAXEL, 1MG, INJ Hector Carey MD [address] [place] [phone] Hector Carey MD [address] [place] [phone] Referral ID Status Reason Start Date Expiration Date Visits Re quested Visits Authorized [id number] Closed 08/18/2015 08/17/2016 24 24 Encounter Details Date Type Department Care Team (Late st Contact Info) Description 06/21/2015 9:30 AM EST Infusion Hematology Oncology at [address] [phone] Breast cancer, left breast Social [...] Progress Notes * Aleisha Landis RN - 06/21/2015 9:53 AM EST INFUSION THERAPY ADMINISTRATION NOTES DIAGNOSIS: Breast Cancer CYCLE #2, Day 1 REASON FOR VISIT: SUBJECTIVE Kelley offers no complaints. OBJECTIVE LAB DATA: WBC 5.32, HGB 10.7, PLTS 254, ANC 3.41, Creat 0.75 IV ACCESS: Mediport Pre administration: Chemotherapy orders [...] AM EDT Office [place] [address] Roddy Olson MD [facility] [place] [address] documented as of this encounter Visit Diagnoses Diagnosis Breast cancer, left breast Malignant neoplasm of breast (female), unspecified site documented in this encounter Administered Medications Inactive Administered Medications - up to 3 most recent administrations Medication Order MAR Action Action Date Dose Rate Site dexamethasone (DECADRON) injection 10 mg 10 mg, Intravenous, ONCE, 1 dose, On Sun06/21/15 at 1000, Administer 30 minutes prior to PACLitaxel Given 06/21/2015 10:07 AM EST 10 mg diphenhydrAMINE (BENADRYL) injection 25 mg 25 mg, Intravenous, ONCE, 1 dose, On Sun06/21/15 at 1000, Administer 30 minutes prior to PACLitaxel, Routine Given 06/21/2015 10:10 AM EST 25 mg famotidine (PEPCID) injection 20 mg 20 mg, Intravenous, ONCE, 1 dose, On Sun06/21/15 at 1000, Administer 30 minutes prior to PACLitaxel Given 06/21/2015 10:12 AM EST 20 mg heparin, porcine 100 unit/mL flush 500 Units 500 Units, Intravenous, ONCE PRN, Starting on Sun06/21/15 at 0944, Until Sun06/21/15 at 1511, Line Care, Refer to Intravenous (IV) Procedure: Accessing Implanted Vascular Access Devices (654) procedure and/or Intravenous (IV) Job Aid: Adult Flushing & Catheter Care (4377) job aid for additional information regarding guidelines and administration., Routine Given 06/21/2015 12:05 PM EST 500 Units PACLitaxel (TAXOL) 166 mg in dextrose 5% Non-PVC 277.6667 mL chemo infusion 166 mg (rounded from 165.6 mg = 80 mg/m2/dose ? 2.07 m2 Treatment Plan BSA from Recorded weight), Intravenous, ONCE, 1 dose, On Sun06/21/15 at 1100, Administer over 60 Minutes New Bag 06/21/2015 10:56 AM EST 166 mg 278 mL/hr palonosetron (ALOXI) injection 0.25 mg 0.25 mg, Intravenous, ONCE, 1 dose, On Sun06/21/15 at 1000, Routine Given 06/21/2015 10:06 AM EST 0.25 mg sodium chloride 0.9 % flush 5-20 mL 5-20 mL, Intravenous, EVERY 1 MIN PRN, Starting on Sun06/21/15 at 0944, Until Sun06/21/15 at 1511, Line Care, Flush pertains to all indwelling lines. Flush per protocol found in the job aid using the link provided on this medication record. Refer to Intravenous (IV) Job Aid: Adult Flushing & Catheter Care (5262) job aid for additional information regarding guidelines and administration., Routine Given 06/21/2015 12:05 PM EST 20 mLs documented in this encounter Care Teams Analytics Consultant Relationship Specialty Start Date End Date Jewels Sorto APRN PCP - General 05/24/10 01/09/18 documented as of this encounter
--- OUTSIDE RECORDS SUMMARY | 2024-02-04 18:40 | XMS_ITS | Encounter Summary ---
Author Organization [facility] Address [facility] [place] [address] Care Team Providers Care Bank Note Designer Name Role Phone Jewels Sorto APRN Primary Care Provider [phone] Reason for Visit * Reason Comments Chemotherapy Cycke 1 day 8 * Treatment/Therapy Plan Authorization (Routine) - Closed Specialty Diagnoses / Procedures Referred By Saad t Referred To Contact Hematology and Oncology Diagnoses Malignant neoplasm of unspecified site of left female breast Procedures TC PACLITAXEL, 1MG, INJ Hector Carey MD [address] [place] [id number] Hector Carey MD [address] [place] [address] Referral ID Status Reason Start Date Expiration Date Visits Re quested Visits Authorized [id number] Closed 08/18/2015 08/17/2016 24 24 Encounter Details Date Type Department Care Team (Late st Contact Info) Description 06/07/2015 9:30 AM EST Infusion Hematology Oncology at [address] [address] Breast cancer, left breast Social [...] as of this encounter Progress Notes * Lily Garcia RN - 06/07/2015 12:37 PM EST INFUSION THERAPY ADMINISTRATION NOTES DIAGNOSIS: Breast Cancer CYCLE #:1 day 8 REASON FOR VISIT: Paclitaxel SUBJECTIVE Kelley offers no complaints. OBJECTIVE LAB DATA: WNL IV ACCESS: Mediport accessed at [facility] Pre administration: Chemotherapy orders independently verified for drug name, route, and dosage per patient's height, weight and BSA by Lily Garcia RN and Maira Wang [facility]. REACTIONS (DESCRIPTION, TIME, INTERVENTION AND EFFECTIVENESS) none ASSESSMENT Kelley was awake, alert and tolerated treatment well. PLAN Return to clinic per routine. documented in this encounter Plan of Treatment Upcoming Encounters Date Type Department Care Team (Late st Contact Info) Description 12/04/2024 11:00 AM EDT Office Visit [place] [address] Roddy Olson MD [facility] [place] [address] documented as of this encounter Visit Diagnoses Diagnosis Breast cancer, left breast Malignant neoplasm of breast (female), unspecified site documented in this encounter Administered Medications Inactive Administered Medications - up to 3 most recent administrations Medication Order MAR Action Action Date Dose Rate Site dexamethasone (DECADRON) injection 10 mg 10 mg, Intravenous, ONCE, 1 dose, On Sun06/07/15 at 1015, Administer 30 minutes prior to PACLitaxel Given 06/07/2015 10:25 AM EST 10 mg diphenhydrAMINE (BENADRYL) injection 25 mg 25 mg, Intravenous, ONCE, 1 dose, On Sun06/07/15 at 1015, Administer 30 minutes prior to PACLitaxel, Routine Given 06/07/2015 10:27 AM EST 25 mg famotidine (PEPCID) injection 20 mg 20 mg, Intravenous, ONCE, 1 dose, On Sun06/07/15 at 1015, Administer 30 minutes prior to PACLitaxel Given 06/07/2015 10:29 AM EST 20 mg heparin, porcine 100 unit/mL flush 500 Units 500 Units, Intravenous, ONCE PRN, Starting on Sun06/07/15 at 0951, Until Sun06/07/15 at 1443, Line Care, Refer to Intravenous (IV) Procedure: Accessing Implanted Vascular Access Devices (654) procedure and/or Intravenous (IV) Job Aid: Adult Flushing & Catheter Care (9737) job aid for additional information regarding guidelines and administration., Routine Given 06/07/2015 12:30 PM EST 500 Units PACLitaxel (TAXOL) 166 mg in dextrose 5% Non-PVC 277.6667 mL chemo infusion 166 mg (rounded from 165.6 mg = 80 mg/m2/dose ? 2.07 m2 Treatment Plan BSA from Recorded weight), Intravenous, ONCE, 1 dose, On Sun06/07/15 at 1115, Administer over 60 Minutes New Bag 06/07/2015 11:09 AM EST 166 mg 278 mL/hr palonosetron (ALOXI) injection 0.25 mg 0.25 mg, Intravenous, ONCE, 1 dose, On Sun06/07/15 at 1015, Routine Given 06/07/2015 10:24 AM EST 0.25 mg sodium chloride 0.9 % flush 5-20 mL 5-20 mL, Intravenous, EVERY 1 MIN PRN, Starting on Sun06/07/15 at 0951, Until Sun06/07/15 at 1443, Line Care, Flush pertains to all indwelling lines. Flush per protocol found in the job aid using the link provided on this medication record. Refer to Intravenous (IV) Job Aid: Adult Flushing & Catheter Care (6814) job aid for additional information regarding guidelines and administration., Routine Given 06/07/2015 12:30 PM EST 20 mLs documented in this encounter Care Teams Bank Note Designer Relationship Specialty Start Date End Date Jewels Sorto APRN PCP - General 05/24/10 01/09/18 documented as of this encounter
--- OUTSIDE RECORDS SUMMARY | 2024-02-04 18:40 | XMS_ITS | Encounter Summary ---
Author Organization [facility] [place] [address] Care Team Providers Care Database Marketing Manager Name Role Phone Jewels Sorto BAUTISTA Primary Care Provider [phone] Encounter Details Date Type Department Care Team (Late st Contact Info) Description 08/12/2015 Orders [place] [phone] Shiloh Cruz MD [facility] [address] Malignant neoplasm of left female breast, unspecified [...] AM EDT Office Visit [place] [phone] Roddy Olson MD [facility] [place] [address] documented as of this encounter Results * Mammo Diag Jose Bilateral (12/16/2015 11:05 AM EDT) Anatomical Region [...] BIRADS CATEGORY 2: BENIGN FINDINGS * ??[employer] and [employer] of [...] breast documented in this encounter Care Teams Database Marketing Manager Relationship Specialty Start Date End Date Jewels Sorto APRN PCP - General 05/24/10 01/09/18 documented as of this encounter
--- OUTSIDE RECORDS SUMMARY | 2024-02-04 18:40 | XMS_ITS | Encounter Summary ---
Author Organization [facility] Address [place] [address] Care Team Providers Care Combiner Name Role Phone Noreen Jewels Hawkins APRN Primary Care Provider [phone] Encounter Details Date Type Department Care Team (Latest Contact Info) Description 10/22/2015 Unscheduled Encounter Radiation Oncology at [address] [phone] Lindsey Frank, RN Malignant neoplasm of left female breast, [...] on file documented as of this encounter Patient Instructions * Patient Instructions* Lindsey Manzano RN - 10/22/2015 9:39 AM EDT DONE WITH TREATMENT INSTRUCTIONS AFTER RECEIVING RADIATION TO THE BREAST Your skin reaction in the treatment field can continue to progress over the next two weeks before it improves. Continue to apply the cream your nurse gave you for two weeks after treatment and until all signs of redness is gone. If you experience skin peeling, apply mepilex to peeling area to absorb drainage and assist in healing. Remove mepilex for showers and change if soiled. Call us if you are having difficulty managing any skin reaction. Discomfort from radiation to the breast is usually relieved by ibuprofen or Tylenol. Call us if youhave discomfort not relieved by these medications. Treatment related fatigue should resolve in 2-4 weeks after treatment is completed. Practice good sleep hygiene habits and take rest periods as needed. Some patients find walking for 30 min daily increases their energy level. If you walk outside wear layers of clothing and SPF 45 or greater. Do notleave your sunscreen in the car because the heat will destroy the active ingredients to protect your skin. If you notice skin tightness, decreased ability to use your arm or swelling in the arm of the treated side, notify us and we will arrange a physical therapy consult. Avoid blood pressure measurements and blood draws in the arm on the treated side. Some people find comfort in joining a support group to meet women who have had breast cancer and share their experiences. If you are interested, tell your nurse and she will assist you in finding onein your area. You will get a call from a medical unit secretary to schedule your follow up appointment. Radiation Oncology [place], [place]: [phone] Radiation Oncology [place], [place] After hours for emergency for either location: [phone], ask to speak with the radiation oncologist inclusion specialist documented in this encounter Progress Notes * Lindsey Manzano RN - 10/22/2015 9:51 AM EDT Radiation Oncology Nursing Completion of Treatment Note Pt completed radiation treatments to left breast for breast cancer. . Side effects/problems noted today: Brisk erythema of breast , no desquamation. No pain. She mentions that he anxiety is still causing her to have insomnia and is taking the lorazepam. She admits that she is worried about seeing the RADIOLOGIC TECHNOLOGY INSTRUCTOR doctor next week . Teaching and discharge instructions reviewed: See AVS which was printed for patient. Expected follow up/referrals: See AVS Patient has our contact numbers on printed AVS Patient/family response to instructions: Patient verbalized understanding of these instructions. documented in this encounter Plan of Treatment Upcoming Encounters Date Type Department Care Team (Late st Contact Info) Description 12/04/2024 11:00 AM EDT Office Visit [place] [address] Roddy Olson MD [facility] [place] [address] documented as of this encounter Visit Diagnoses Diagnosis Malignant neoplasm of left female breast, unspecified site of breast documented in this encounter Care Teams Combiner Relationship Specialty Start Date End Date Jewels Sorto APRN PCP - General 05/24/10 01/09/18 documented as of this encounter
--- OUTSIDE RECORDS SUMMARY | 2024-02-04 18:40 | XMS_ITS | Encounter Summary ---
Author Organization [facility] [place] [address] Care Team Providers Care Tobacco Hanger Name Role Phone Jewels Sorto APRN Primary Care Provider [phone] Reason for Visit * Reason Comments Chemotherapy Cycle 4, Day 1 Pacli taxel * Treatment/Therapy Plan Authorization (Routine) - Closed Specialty Diagnoses / Procedures Referred By Contalejandro t Referred To Contact Hematology and Oncology Diagnoses Malignant neoplasm of unspecified site of left female breast Procedures TC PACLITAXEL, 1MG, INJ Hector Carey MD [address] [place] [phone] Hector Carey MD [address] [place] [address] Referral ID Status Reason Start Date Expiration Date Visits Re quested Visits Authorized [id number] Closed 08/18/2015 08/17/2016 24 24 Encounter Details Date Type Department Care Team (Late st Contact Info) Description 08/02/2015 9:30 AM EST Infusion Hematology Oncology at [address] [address] Malignant neoplasm of central portion [...] as of this encounter Progress Notes * Leatha Alonzo RN - 08/02/2015 10:22 AM EST INFUSION THERAPY ADMINISTRATION NOTES DIAGNOSIS: Left Breast cancer CYCLE #: Cycle 4, Day 1 REASON FOR VISIT: To receive chemotherapy SUBJECTIVE Kelley feels well and offers no complaints. OBJECTIVE: VSS. Wt stable. Continue to exhibit an open area in the right groin. [place], moist with a white center. Dr. Carey and her PCP are aware and following. It has not gotten any larger LAB DATA: WBC - 5.15, H/H - 11.10/32.7, Plt Ct 323, ANC 3.36. Cr - 0.77. Lytes are normal IV ACCESS: Presented with port accessed from an off site Pre administration: Chemotherapy orders independently verified for drug name, route, and dosage per patient's height, weight and BSA by Annika Alonzo RN and Brad Kraus [facility]. REACTIONS (DESCRIPTION, TIME, INTERVENTION AND EFFECTIVENESS) none ASSESSMENT: Kelley was awake, alert and tolerated treatment well. Port de-accessed by Luana Flores Rn and flushed with 20 cc of NS and 500 units of heparin PLAN: Return to clinic per routine. * Lily Garcia RN - 07/27/2015 12:16 PM EST documented in this encounter Plan of Treatment Upcoming Encounters Date Type Department Care Team (Late st Contact Info) Description 12/04/2024 11:00 AM EDT Office Visit [place] [address] Roddy Olson MD [facility] [place] [address] documented as of this encounter Visit Diagnoses Diagnosis Malignant neoplasm of central portion of left female breast Malignant neoplasm of central portion of female breast documented in this encounter Administered Medications Inactive Administered Medications - up to 3 most recent administrations Medication Order MAR Action Action Date Dose Rate Site dexamethasone (DECADRON) injection 10 mg 10 mg, Intravenous, ONCE, 1 dose, On Sun08/02/15 at 0945, Administer 30 minutes prior to PACLitaxel Given 08/02/2015 9:54 AM EST 10 mg diphenhydrAMINE (BENADRYL) injection 25 mg 25 mg, Intravenous, ONCE, 1 dose, On Sun08/02/15 at 0945, Administer 30 minutes prior to PACLitaxel, Routine Given 08/02/2015 9:59 AM EST 25 mg famotidine (PEPCID) injection 20 mg 20 mg, Intravenous, ONCE, 1 dose, On Sun08/02/15 at 0945, Administer 30 minutes prior to PACLitaxel Given 08/02/2015 10:04 AM EST 20 mg heparin, porcine 100 unit/mL flush 500 Units 500 Units, Intravenous, ONCE PRN, Starting on Sun08/02/15 at 0918, Until Sun08/02/15 at 1548, Line Care, Refer to Intravenous (IV) Procedure: Accessing Implanted Vascular Access Devices (604) procedure and/or Intravenous (IV) Job Aid: Adult Flushing & Catheter Care (4456) job aid for additional information regarding guidelines and administration., Routine Given 08/02/2015 12:00 PM EST 500 Units PACLitaxel (TAXOL) 166 mg in dextrose 5% Non-PVC 277.6667 mL chemo infusion 166 mg (rounded from 165.6 mg = 80 mg/m2/dose ? 2.07 m2 Treatment Plan BSA from Recorded weight), Intravenous, ONCE, 1 dose, On Sun08/02/15 at 1045, Administer over 60 Minutes New Bag 08/02/2015 10:50 AM EST 166 mg 278 mL/hr palonosetron (ALOXI) injection 0.25 mg 0.25 mg, Intravenous, ONCE, 1 dose, On Sun08/02/15 at 0945, Routine Given 08/02/2015 9:52 AM EST 0.25 mg sodium chloride 0.9 % flush 5-20 mL 5-20 mL, Intravenous, EVERY 1 MIN PRN, Starting on Sun08/02/15 at 0918, Until Sun08/02/15 at 1548, Line Care, Flush pertains to all indwelling lines. Flush per protocol found in the job aid using the link provided on this medication record. Refer to Intravenous (IV) Job Aid: Adult Flushing & Catheter Care (1379) job aid for additional information regarding guidelines and administration., Routine Given 08/02/2015 12:00 PM EST 20 mLs documented in this encounter Care Teams Tobacco Hanger Relationship Specialty Start Date End Date Jewels Sorto APRN PCP - General 05/24/10 01/09/18 documented as of this encounter
--- OUTSIDE RECORDS SUMMARY | 2024-02-04 18:40 | XMS_ITS | Encounter Summary ---
Author Organization [facility] Address [facility] [place] [address] Care Team Providers Care Seo Professional Name Role Phone SanbornJewels ca Shruthi BUAM Primary Care Provider [phone] Encounter Details Date Type Department Care Team (Late st Contact Info) Description 06/14/2015 Notes Only Hematology Oncology at [address] [phone] Cinthia Costello, SHAREPOINT ARCHITECT OFFICE OF CARE MANAGEMENT Social History Tobacco Use Types Packs/Day Years [...] as of this encounter Progress Notes * Cinthia Costello MSW - 06/15/2015 2:34 PM EST Follow up with pt during infusion 06-14-15. Pt indicated she did receive paperwork from Annmarie Ramírez financial assistance through [facility] as well as applications to [employer] and [place] [employer] programs. Pt indicated she has completed and submitted the paperwork and is waiting to her back. Will follow up with pt re this as indicated. documented in this encounter Plan of Treatment Upcoming Encounters Date Type Department Care Team (Late st Contact Info) Description 12/04/2024 11:00 AM EDT Office Visit [place] [address] Roddy Olson MD [facility] [place] [address] documented as of this encounter Visit Diagnoses Not on filedocumented in this encounter Care Teams Seo Professional Relationship Specialty Start Date End Date Jewels Sorto APRN PCP - General 05/24/10 01/09/18 documented as of this encounter
--- OUTSIDE RECORDS SUMMARY | 2024-02-04 18:40 | XMS_ITS | Encounter Summary ---
Author Organization [facility] Address [facility] [place] [address] Care Team Providers Care Lumber Sticker Name Role Phone Jewels Sorto Shruthi BAUM Primary Care Provider [phone] Reason for Visit * Reason Comments Establish Care abn u/s Encounter Details Date Type Department Care Team (Late st Contact Info) Description 10/27/2015 2:30 PM EDT Office Visit Gyne[place] [phone] Meghan Baltazar MD [facility] [place] [address] Endometrial thickening on ultra sound (Primary Dx) Social History Tobacco Use Types [...] Sign Reading Time Taken Comments Blood Pressure 125/78 10/27/2015 2:17 PM EDT Pulse 82 10/27/2015 2:17 PM EDT Temperature 36.6 ??C (97.9 ??F) 10/27/2015 2:17 PM ED T Respiratory Rate 18 10/27/2015 2:17 PM EDT Oxygen Saturation 97% 10/27/2015 2:17 PM EDT Inhaled Oxygen Concentration - - Weight 92.8 kg (204 lb 9.4 oz) 10/27/2015 2:17 P M EDT Height 168.8 cm (5' 6.46) 10/27/2015 2:17 PM ED T Body Mass Index 32.57 10/27/2015 2:17 PM EDT documented in this encounter Progress Notes * Hilda Brown - 10/27/2015 2:09 PM EDT ivision of Gynecologic Oncology Lily Underwood MD [facility] Meghan Baltazar MD [facility] [place] [address] New Outpatient Visit: Reason for visit :Kelley Jensen is being seen in the clinic today for the evaluation of thickened endometrial stripe. I have reviewed the available records, interviewed and examined the patient. History of Present Illness: Kelley Jensen is a 60 y.o. female referred for evaluation of a thickened endometrial stripe. Ms Jensen was diagnosed with left sided ER+, Her2- breast cancer. She was treated with surgery, chemo (ddAC-T), and radiation, and completed this in 10/15. She tolerated therapy well. During treatment she went for a physical, and the PCP noted abdominal tenderness, which led to a US, which showed endometrial thickening. No vaginal bleeding. Has lost 3 lbs (while going through cancer treatments) She reports being very anxious, for which she has been seen several times at ED. She feels somewhatoverwhelmed by her recent health issues (breast cancer, and now abnormal US findings). She had a cone a few years back. Review of Systems: Review of Systems Besides what is mentioned in HPI, all other systems are negative. Medical History: Past Medical History Diagnosis Date ??? Breast cancer, left breast 2014 Hypothyroid Anxiety ALECIA 3- 1996 (loop excision cone biopsy) Surgical History: Past Surgical History Procedure Laterality Date ??? Pro excise breast les w xray marker Left 02/16/2015 EXCISION LESION, BREAST W/ PREOP.MARKER (NEEDLE LOC.) performed by Shiloh Cruz MD at [facility] ??? Pro bx/remv, lymph node, deep axill Left 02/16/2015 BIOPSY OR EXCISION OF LYMPH NODE(S), OPEN, DEEP AXILLARY NODE(S) performed by Shiloh Cruz MD at [facility] ??? Pro identify sentinel node Left 02/16/2015 SENTINEL NODE INJECTION performed by Shiloh Cruz MD at [facility] ??? Left 02/16/2015 MODIFIER WITH NEEDLE LOC. performed by Shiloh Cruz MD at [facility] ??? Left 02/16/2015 MODIFIER SENTINEL NODE EXCISION performed by Shiloh Cruz MD at [facility] Appendectomy when she was 10 yrs old. Tubal ligation at age 23 Medications: Current Outpatient Prescriptions Medication Sig Dispense Refill ??? LORazepam (ATIVAN) 0.5 mg Tablet Take 1 tablet by mouth every 6 hours as needed for Anxiety. (Patient taking differently: Take 0.5 mg by mouth every 6 hours as needed for Anxiety (takes nightly for sleep).) 120 tablet 0 ??? ipratropium-albuterol (COMBIVENT RESPIMAT) 20-100 mcg/actuation Mist Inhale 1 puff into the lungs every 6 hours as needed for Wheezing. ??? oxyCODONE 5 mg Capsule Take 5 mg by mouth every 4 hours as needed. Took @@ bedtime 09/13/15 for L shoulder pain. ??? acetaminophen (TYLENOL) 650 mg Tablet Sustained Release Take 650 mg by mouth every 8 hours as needed for Pain. Do not exceed 6 tabs in 24 hours ??? acyclovir (ZOVIRAX) 400 mg Tablet Take 1 tablet by mouth 2 times daily. Take 400 mg BID x 7 days 60 tablet 1 ??? EMOLLIENT BASE (CREAM BASE TOP) Apply topically. Jeans Cream. Apply to area of radiation twice a day but no less than 2 hours before a treatment. ??? hydrochlorothiazide (HYDRODIURIL) 25 mg Tablet Take 25 mg by mouth daily. ??? prochlorperazine (COMPAZINE) 10 mg Tablet Take 1 tablet by mouth every 6 hours as needed for Nausea. 30 tablet 3 ??? ibuprofen (ADVIL;MOTRIN) 800 mg Tablet 600 mg. 0 ??? levothyroxine (SYNTHROID) 25 mcg Tablet Take by mouth daily. 0 ??? simvastatin (ZOCOR) 40 mg Tablet Take 40 mg by mouth nightly. 0 No current facility-administered medications for this visit. Allergies: No Known Allergies Obstetric History: 2 children, first at 18 Menarche at age 14, Menopause at age 42 Family History: Family History Negative family history of: Breast Cancer, Ovarian Cancer Brother had unknown type of cancer Social History: reports that she quit smoking about 8 months ago. Her smoking use included Cigarettes. She has a 30pack-year smoking history. She has never used smokeless tobacco. She reports that she does not drink alcohol or use illicit drugs. Lives with . 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 Physical Exam: Filed Vitals: 10/27/15 1417 BP: 125/78 Pulse: 82 Temp: 36.6 ??C (97.9 ??F) Resp: 18 Height: 168.8 cm (5' 6.46) Weight: 92.8 kg (204 lb 9.4 oz) SpO2: 97% Body mass index is 32.57 kg/(m^2). Body surface area is 2.09 meters squared. Physical Exam NAD, hair is growing back RRR CTAB Abd is soft, NT/ND. No masses. Pelvic exam w/ endometrial biopsy- performed by Dr Baltazar- normal external genitalia and normal appearing cervix and vagina. Attempted to insert pipelle, but procedure was too painful. Only able to obtain a very small sample. GOG Performance Status: 90 Pertinent Radiographic/Diagnostic Results: Pelvic US (09/14)- abnormal thickened heterogeneous stripe. 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 Pt having difficulty with anxiety related to her recent breast cancer and now her endometrial abnormality. Unfortunately, Dr Baltazar's attempt at endometrial biopsy today was unsuccessful due to patient intolerance. We suspect increased pain from average due to cervical scarring s/p cone in 1995. While wedid submit a specimen, we not optimistic this will yield satisfactory results. In which case, we will perform the biopsy under anaesthesia in the OR. Today, we discussed the fact that the differential diagnosis of this US abnormality is broad, ranging from malignant conditions to non-malignant conditions. We will await biopsy results and make a plan from there. Given her anxiety, she was happy to hear this. ?? F/U endometrial biopsy results from today. If inconclusive, will schedule for biopsy in OR with sedation ?? Plan to be determined by biopsy results HILDA BROWN MDing documented in this encounter Plan of Treatment Upcoming Encounters Date Type Department Care Team (Late st Contact Info) Description 12/04/2024 11:00 AM EDT Office Visit [place] [address] Roddy Olson MD [facility] [place] [address] documented as of this encounter Procedures Procedure Name Priority Date/Time Associated Diagnosis Comments SPECIMEN TO PATHOLOGY (NON-OR) Routine 10/27/2015 3:52 PM EDT Endometrial thickening on ultra sound SURGICAL PATHOLOGY REPORT Routine 10/27/2015 3:52 PM EDT documented in this encounter Results * Surgical Pathology Report (10/27/2015 3:52 PM EDT) Final Diagnosis [id number] ? Location: The signing pathologist has (i) examined the relevant preparation(s) for the specimen(s) and (ii) rendered or confirmed the diagnosis(es). . ?Surgical Pathology DIAGNOSIS Endometrial biopsy: Small fragment of highly atypical epithelium suspicious for carcinoma intermixed with atrophic endometrium and cervical mucus. (see Discussion) CR-0 11/01/15 LJT 11/03/15 Verified by: ? Alison NAGY, Maggy Dale ?Pathologist ?(Electronic Signature) The attending pathologist whose signature appears on this report has reviewed all diagnostic slides and has edited the gross and/or microscopic portion of the report in rendering the final pathologic diagnosis. DISCUSSION There is a small fragment of highly atypical endometrial tissue with increased mitotic activity suspicious for carcinoma. ??On deeper levels (IHC slides) this focus is significantly smaller but shows moderate positivity for p53 and is strongly positive for p16 and serous carcinoma cannot be excluded. ??Recommend endometrial curettings to further characterize. ADDITIONAL STUDIES Immunohistochemistry Studies: Formalin-fixed, paraffin-embedded tissue sections are studied using the polymer technique with appropriate positive and negative controls. ?These IHC studies provide the pathologist with adjunctive diagnostic information. Antibody specificity has been verified by testing antibodies on a series of in-house tissues with known immunohistochemical performance characteristics. The clinical interpretation of any antibody positive staining or its absence is evaluated within the context of clinical presentation, morphology, histopathological criteria and other diagnostic tests. Block ? Antibody ?Result (Positive/Negative) A1 ?p53 ?Moderate positivity (small focus) ?p16 ?Positive CLINICAL INFORMATION Specimen Submitted: A - Enodmetrial Biopsy Clinical History: Endometrial thickening Clinical Diagnosis: Polyp versus cancer SPECIMEN PROCESSING A - Labeled/Fixative: Patient demographics, formalin. Quantity/Size: Mucus, 0.4 x 0.4 x 0.4 cm. Tissue Description: Hemorrhagic mucus. Sections/Processing: (T1) ??romy 11/03/2015 8:59 AM EDT [facility] ENDOMETRIAL STRUCTURE / Unknown 10/27/2015 3:52 PM EDT 10/27/2015 3:52 PM EDT Meghan Baltazar MD PATHOLOGY/CYTOLOGY O BRENDA Performing Organization Address [facility] [place] [address] * Specimen to Pathology (NON-OR) (10/27/2015 3:52 PM EDT) AP Specimen 10/27/2015 3:52 PM EDT 10/27/2015 3:52 PM EDT Narrative [facility] - 10/27/2015 3:52 PM EDT Specimen requisition ordered. ??Separate Pathology report to follow Meghan Baltazar MD PATHOLOGY/CYTOLOGY O BRENDA Performing Organization Address [facility] [place] [address] documented in this encounter Visit Diagnoses Diagnosis Endometrial thickening on ultra sound- Primary Nonspecific (abnormal) findings on radiological and other examination of genitourinary organs documented in this encounter Care Teams Lumber Sticker Relationship Specialty Start Date End Date Jewels Sorto APRN PCP - General 05/24/10 01/09/18 documented as of this encounter
--- OUTSIDE RECORDS SUMMARY | 2024-02-04 18:40 | XMS_ITS | Encounter Summary ---
Author Organization [facility] [place] [address] Care Team Providers Care Assignment Clerk Name Role Phone Jewels Sorto APRN Primary Care Provider [phone] Reason for Visit * Reason Comments Breast Cancer Encounter Details Date Type Department Care Team (Late st Contact Info) Description 06/07/2015 9:00 AM EST Office Visit Hematology/Oncology at [address] [phone] Hector Carey MD [address] [place] [address] Breast cancer, left breast Social History Tobacco [...] Sign Reading Time Taken Comments Blood Pressure 134/75 06/07/2015 8:43 AM EST Pulse 89 06/07/2015 8:43 AM EST Temperature 36.7 ??C (98.1 ??F) 06/07/2015 8:43 AM ES T Respiratory Rate 16 06/07/2015 8:43 AM EST Oxygen Saturation 100% 06/07/2015 8:43 AM EST Inhaled Oxygen Concentration - - Weight 89.8 kg (198 lb) 06/07/2015 8:43 AM EST Height 170 cm (5' 6.93) 06/07/2015 8:43 AM EST Body Mass Index 31.08 06/07/2015 8:43 AM EST documented in this encounter Progress Notes * Hector Carey MD - 06/07/2015 9:17 AM EST Diagnosis: 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 The tumor was 0.7 cm, low-grade, ER/PA positive, with 1 of 3 sentinel positive nodes. HER-2 was negative. Subjective: Kelley comes in today for followup and week two Taxol chemotherapy being give adjuvantly in the treatment of her breast cancer. Her first week of Taxol was last week and it went quite well overall. She had no nausea or vomiting, no significant constipation. She is not having any nail changes and no evidence of neuropathy. We discussed all of these possible side effects again. She does feel the chemotherapy is a little less fatiguing than her previous Adriamycin and Cytoxan treatments. She has a little bit of flaking on her fingertips but is taking good care of her skin and her hands and we discussed nail care today. Past medical history and social history were reviewed from one week ago and unchanged. Current Outpatient Prescriptions on File Prior to Visit Medication Sig Dispense Refill ??? hydrochlorothiazide (HYDRODIURIL) 25 mg Tablet Take [...] (ADVIL;MOTRIN) 800 mg Tablet 600 mg. 0 No current facility-administered medications on file prior to visit. . No Known Allergies The patient is currently on disability from her breast cancer. She works at a [employer] in [place] but will be soon looking for a [...] Neurological: Negative. Hematological: Negative for adenopathy. BP 134/75 mmHg Pulse 89 Temp(Src) 36.7 ??C (98.1 ??F) (Oral) Resp 16 Ht 170 cm (5' 6.93) Wt 89.812 kg (198 lb) BMI 31.08 kg/m2 SpO2 100% Head: Normocephalic, without obvious abnormality, atraumatic Eyes: [...] supraclavicular, and axillary nodes normal Neurologic: Normal Review of her laboratory shows normal electrolytes, creatinine is 0.78, glucose 118, calcium 8.8, ALP is 74. Albumin has come up from 3.0 to 3.1. CBC shows some improvement in her chemotherapy associated anemia with hematocrit going from 30.1 to 30.5. Platelet count is improved as well at 379. Absolute neutrophil count is 4.04. Assessment/Plan: Kelley is tolerating her chemotherapy well and has good control of her nausea and vomiting and other symptoms. She does not have any significant constipation. There are no signs of neuropathy. Her chemotherapy associated anemia is improving. She is tolerating the treatment well. We will go ahead with it today and see her back in a week with a CBC and CMP for week three of 12 planned weekly treatments. She will call if there are issues or problems in the interim. She does note that in a couple of months her insurance will be stopping. We will get her together with our social work associate in regards to her options. Financially, even COBRA would be difficult for her. documented in this encounter Plan of Treatment Upcoming Encounters Date Type Department Care Team (Late st Contact Info) Description 12/04/2024 11:00 AM EDT Office [place] [address] Roddy Olson MD [facility] [place] [address] documented as of this encounter Procedures Procedure Name Priority Date/Time Associated Diagnosis Comments LAB SCAN 06/07/2015 12:00 AM EST documented in this encounter Results * SCAN DOC: LAB (06/07/2015 12:00 AM EST) Scanning Provider MEDIA MGR SCAN EXT O RDR/RSLT documented in this encounter Visit Diagnoses Diagnosis Breast cancer, left breast Malignant neoplasm of breast (female), unspecified site documented in this encounter Care Teams Assignment Clerk Relationship Specialty Start Date End Date Jewels Sorto APRN PCP - General 05/24/10 01/09/18 documented as of this encounter
--- OUTSIDE RECORDS SUMMARY | 2024-02-04 18:40 | XMS_ITS | Encounter Summary ---
Author Organization [facility] Address [facility] [place] [address] Care Team Providers Care Plodding Operator Name Role Phone Jewels Sorto APRN Primary Care Provider [phone] Reason for Visit * Reason Comments IV Access Cathflo Instillation Chemotherapy Taxol, Cycle 3 Day 8 * Treatment/Therapy Plan Authorization (Routine) - Closed Specialty Diagnoses / Procedures Referred By Contalejandro t Referred To Contact Hematology and Oncology Diagnoses Malignant neoplasm of unspecified site of left female breast Procedures TC PACLITAXEL, 1MG, INJ Hector Carey MD [address] [place] [id number] Hector Carey MD [address] [place] [phone] Referral ID Status Reason Start Date Expiration Date Visits Re quested Visits Authorized [id number] Closed 08/18/2015 08/17/2016 24 24 Encounter Details Date Type Department Care Team (Late st Contact Info) Description 07/19/2015 9:30 AM EST Infusion Hematology Oncology at [address] [phone] Malignant neoplasm of central portion [...] Progress Notes * Aleisha Landis RN - 07/19/2015 9:05 AM EST INFUSION THERAPY ADMINISTRATION NOTES DIAGNOSIS: Breast Cancer CYCLE # 3, Day 8 REASON FOR VISIT: Taxol Infusion SUBJECTIVE Kelley offers no complaints. OBJECTIVE LAB DATA:WBC 5.8, HGB 10.9, PLTS 331, ANC 4.18, Creat 0.85 IV ACCESS: Mediport Pre administration: Chemotherapy orders independently verified for drug name, route, and dosage per patient's height, weight and BSA by Aleisha Landis RN and Maira Wang RPh.. REACTIONS (DESCRIPTION, TIME, INTERVENTION AND EFFECTIVENESS) none ASSESSMENT Kelley was awake, alert and tolerated treatment well. PLAN Return to clinic per routine. documented in this encounter Plan of Treatment Upcoming Encounters Date Type Department Care Team (Late st Contact Info) Description 12/04/2024 11:00 AM EDT Office [place] [address] Roddy Olson MD [facility] [place] [address] documented as of this encounter Visit Diagnoses Diagnosis Malignant neoplasm of central portion of left female breast Malignant neoplasm of central portion of female breast documented in this encounter Administered Medications Inactive Administered Medications - up to 3 most recent administrations Medication Order MAR Action Action Date Dose Rate Site alteplase (CATHFLO) injection 2 mg 2 mg, Intravenous, ONCE PRN, Starting on Sun07/19/15 at 0903, Until Sun07/19/15 at 1330, Line Occlusion, Refer to Cathflo Activase (Alteplase) Administration policy for additional information regarding guidelines and administration., Routine Given 07/19/2015 9:10 AM EST 2 mg dexamethasone (DECADRON) injection 10 mg 10 mg, Intravenous, ONCE, 1 dose, On Sun07/19/15 at 0930, Administer 30 minutes prior to PACLitaxel Given 07/19/2015 9:45 AM EST 10 mg diphenhydrAMINE (BENADRYL) injection 25 mg 25 mg, Intravenous, ONCE, 1 dose, On Sun07/19/15 at 0930, Administer 30 minutes prior to PACLitaxel, Routine Given 07/19/2015 9:48 AM EST 25 mg famotidine (PEPCID) injection 20 mg 20 mg, Intravenous, ONCE, 1 dose, On Sun07/19/15 at 0930, Administer 30 minutes prior to PACLitaxel Given 07/19/2015 9:43 AM EST 20 mg heparin, porcine 100 unit/mL flush 500 Units 500 Units, Intravenous, ONCE PRN, Starting on Sun07/19/15 at 0903, Until Sun07/19/15 at 1330, Line Care, Refer to Intravenous (IV) Procedure: Accessing Implanted Vascular Access Devices (654) procedure and/or Intravenous (IV) Job Aid: Adult Flushing & Catheter Care (6843) job aid for additional information regarding guidelines and administration., Routine Given 07/19/2015 11:28 AM EST 500 Units PACLitaxel (TAXOL) 166 mg in dextrose 5% Non-PVC 277.6667 mL chemo infusion 166 mg (rounded from 165.6 mg = 80 mg/m2/dose ? 2.07 m2 Treatment Plan BSA from Recorded weight), Intravenous, ONCE, 1 dose, On Sun07/19/15 at 1030, Administer over 60 Minutes New Bag 07/19/2015 10:18 AM EST 166 mg 278 mL/hr palonosetron (ALOXI) injection 0.25 mg 0.25 mg, Intravenous, ONCE, 1 dose, On Sun07/19/15 at 0930, Routine Given 07/19/2015 9:41 AM EST 0.25 mg sodium chloride 0.9 % flush 5-20 mL 5-20 mL, Intravenous, EVERY 1 MIN PRN, Starting on Sun07/19/15 at 0903, Until Sun07/19/15 at 1330, Line Care, Flush pertains to all indwelling lines. Flush per protocol found in the job aid using the link provided on this medication record. Refer to Intravenous (IV) Job Aid: Adult Flushing & Catheter Care (2738) job aid for additional information regarding guidelines and administration., Routine Given 07/19/2015 11:28 AM EST 20 mLs documented in this encounter Care Teams Plodding Operator Relationship Specialty Start Date End Date Jewels Sorto APRN PCP - General 05/24/10 01/09/18 documented as of this encounter
--- OUTSIDE RECORDS SUMMARY | 2024-02-04 18:40 | XMS_ITS | Encounter Summary ---
Author Organization [facility] Address [facility] [place] [address] Care Team Providers Care Rubber Stamp Die Inspector Name Role Phone CabarrusJewels ca Shruthi BAUM Primary Care Provider [phone] Reason for Visit * Reason Comments Radiation Treatment Encounter Details Date Type Department Care Team (Late st Contact Info) Description 10/19/2015 9:15 AM EDT Office Visit Radiation Oncology at [address] [address] Maegan Eng MD [facility] [place] [address] Malignant neoplasm of left female breast, unspecified [...] Sign Reading Time Taken Comments Blood Pressure 123/65 10/19/2015 9:00 AM EDT Pulse 80 10/19/2015 9:00 AM EDT Temperature 36.7 ??C (98.1 ??F) 10/19/2015 9:00 AM ED T Respiratory Rate 18 10/19/2015 9:00 AM EDT Oxygen Saturation 96% 10/19/2015 9:00 AM EDT Inhaled Oxygen Concentration - - Weight 93.1 kg (205 lb 3.2 oz) 10/19/2015 9:00 A M EDT Height - - Body Mass Index 32.21 08/16/2015 8:55 AM EST documented in this encounter Patient Instructions * Patient Instructions* Maegan Eng MD - 10/19/2015 9:40 AM EDT Your last radiotherapy will be on F., 10/22/15. Please continue the reyes's cream. Please do not use deodorant other than Feliz's on your left underarm. Please do not use a straight/regular razor on your left underarm. An electric razor is ok. Please do not expose the irradiated area to sun. Please do not swim in chlorinated water. Saltwater or freshwater is ok. We will mail you a letter with an appointment to see me in 1 - 2 months. documented in this encounter Progress Notes * Maegan Eng MD - 10/19/2015 9:32 AM EDT DIAGNOSIS: Breast ca, L, IDC, low gr, ER+HI+, Kkv4ria-, s/p lumpectomy & SNB, pT1b pN1a, stage II. S/p adjuvant chemo. CURRENT TREATMENT DOSE: 50.4 Gy L supraclav, L axilla & L breast, 54.4 Gy lumpectomy bed L breast ANTICIPATED TOTAL DOSE: 50.4 Gy L supraclav, L axilla & L breast, 60.4 Gy lumpectomy bed L breast Current # of xrt received: 28 L supraclav, L axilla & L breast, 30 lumpectomy bed L breast Anticipated total # of xrt txs: 28 L supraclav, L axilla & L breast, 33 lumpectomy bed L breast Evaluation of port verification films: Approved. For details, see electronic film record in [employer]. Changes in Medical Condition: Continues to have episodes of waking up @ night (not every night) w/anxiety & dyspnea, which clear after taking 0.5 mg ativan. She takes ativan 0.5 mg q HS. The episodes occur a few hrs after falling asleep. Last wk she raked for several hrs during the day & that night slept through the entire night. Occasionally she has anxiety during the day, & then takes a 0.5 mg ativan, which calms her. Yesterday she had pain in L shoulder blade a few mins after coming off the xrt table; none since then. Feels tired @ end of day. Appt 10/27/[address] Baltazar of thickening of lining of womb seen on US. Scratchy throat soothed adequately by baking soda & salt rinse. Itchiness of skin w/in irrad'd area relieved by reyes's cream. Pain?: See above. Physical Exam: BP 123/65 mmHg Pulse 80 Temp(Src) 36.7 ??C (98.1 ??F) (Oral) Resp 18 Wt 93.078 kg (205 lb 3.2 oz) SpO2 96% A&Ox3, in NAD. Mild to moderate erythema/hyperpigmentation w/inirrad'd area; skin intact. Xrays: 09/14/15 plain xrays L humerus, L shoulder & scapula: Neg. Response to xrt: As expected. Irradiation Related Symptoms: Esophagitis. Skin rxn. Treatment for Symptom Control: Rec'd trying to walk 20-30 mins/d, which may help her energy level during the day & may help her sleep better @ night. Baking soda & salt gargle. Reyes's cream. Pain Management: Ibuprofen. Recommendation on Continuing Course of xrt: Cont. Completes xrt 10/22/15. Rtc 1 mo. Skin care instructions given. Dr. Carey 10/28/15. Kelley says she will be calling Dr. Cruz to sched appt to thuan in November. documented in this encounter Plan of Treatment Upcoming Encounters Date Type Department Care Team (Late st Contact Info) Description 12/04/2024 11:00 AM EDT Office Visit [place] [address] Roddy Olson MD [facility] [place] [address] documented as of this encounter Visit Diagnoses Diagnosis Malignant neoplasm of left female breast, unspecified site of breast documented in this encounter Care Teams Rubber Stamp Die Inspector Relationship Specialty Start Date End Date Jewels Sorto APRN PCP - General 05/24/10 01/09/18 documented as of this encounter
--- OUTSIDE RECORDS SUMMARY | 2024-02-04 18:40 | XMS_ITS | Encounter Summary ---
Author Organization [facility] Address [facility] [place] [address] Care Team Providers Care Life Skills Coordinator Name Role Phone Jewels Sorto APRN Primary Care Provider [phone] Encounter Details Date Type Department Care Team (Late st Contact Info) Description 11/04/2015 2:30 PM EDT Office Visit Hematology/Oncology at [address] [address] Dorcas Dickinson APRN [address] [facility] [place] [address] Malignant neoplasm of upper-outer quadrant of left [...] Sign Reading Time Taken Comments Blood Pressure 127/57 11/04/2015 2:45 PM EDT Pulse 77 11/04/2015 2:45 PM EDT Temperature 37 ??C (98.6 ??F) 11/04/2015 2:45 PM EDT Respiratory Rate 16 11/04/2015 2:45 PM EDT Oxygen Saturation 98% 11/04/2015 2:45 PM EDT Inhaled Oxygen Concentration - - Weight 92.1 kg (203 lb) 11/04/2015 2:45 PM EDT Height 168.8 cm (5' 6.46) 11/04/2015 2:45 PM ED T Body Mass Index 32.32 11/04/2015 2:45 PM EDT documented in this encounter Progress Notes * Dorcas Dickinson, MOTOR AND GENERATOR BRUSH CUTTER - 11/04/2015 2:42 PM EDT Diagnosis: 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 Breast ca, L, IDC, low gr, ER+CO+, [id number]-, s/p lumpectomy & SNB, pT1b pN1a, stage II.?? S/p adjuvant chemo completed 08/16/15. Completed RT 10/22/15. Anticipates starting Arimidex at the end of October. ONCBCN ONCOLOGY (AMB) 08/16/2015 Day, Cycle Day 15, Cycle 4 cyclophosphamide (CYTOXAN) IV DOXOrubicin (ADRIAMYCIN) IV PACLitaxel (TAXOL) IV 80 mg/m2/dose = 166 mg pegfilgrastim (NEULASTA) SubQ HPI: The patient is currently on disability from her breast cancer. 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 She is accompaniedtoday by her daughter who has cerebral palsy. She is and has excellent home support. She was started on Celexa by Dr. Carey for panic attacks as she has been under quite a bit of stress. She has now been able to sleep. She has a lot of financial problems due to her cancer. Past medical history and social history were reviewed and unchanged. Current Outpatient Prescriptions on File Prior to Visit Medication Sig Dispense Refill ??? citalopram (CELEXA) 20 mg Tablet Take 1 tablet by mouth daily. 60 tablet 6 ??? LORazepam (ATIVAN) 0.5 mg Tablet Take [...] exceed 6 tabs in 24 hours ??? EMOLLIENT BASE (CREAM BASE TOP) Apply [...] facility-administered medications on file prior to visit. No Known Allergies Review of Systems Constitutional: energy improving slowly Mood: no panic attacks since initiating celexa. No side effects noted. Assessment/Plan: 45 minutes of this 45 minute [id number] visit from 3:00 to 3:45 were spent in discussion of medication management and additional therapies as described below: 1. Breast CA: completed adjuvant chemo and XRT therapy. Awaiting initiation of Arimidex. 2. Endometrial bx: came back as likely malignant. Contacted Dr. Baltazar who talked to the patient by phone during this appointment. They have decided on a hysterectomy, and Dr. Christensen will be setting up the appointment to get that going. Depending on whether or not an oopherectomy is done, adjuvant hormone therapy for her may not be necessary. I had a long conversation with the patient about the procedure, her feelings around it, and her general outlook which seemed good when the discussion was completed. 3. Anxiety- under better control with celexa. Her anxiety is due mostly to her financial situation as she has gotten caught between being laid off while being on ST disability as the [employer] moved. EVAN Henderson kindly saw her today after our visit and helped her complete forms for SS disability and will look into local options. Kelley feels that if finances were more under control, her stress level and anxiety level would be greatly reduced. I will followup with her when she returns to see Dr. Carey on the . She has my card and will call in the meantime if she feels that if we can be useful. Dorcas Dickinson, MSN, INSPECTOR WIRE ROPE, AOCN Hematology/Oncology Nurse Practitioner [place], [place] [phone] documented in this encounter Plan of Treatment Upcoming Encounters Date Type Department Care Team (Late st Contact Info) Description 12/04/2024 11:00 AM EDT Office [place] [address] Roddy Olson MD [facility] [place] [address] documented as of this encounter Visit Diagnoses Diagnosis Malignant neoplasm of upper-outer quadrant of left female breast Malignant neoplasm of upper-outer quadrant of female breast documented in this encounter Care Teams Life Skills Coordinator Relationship Specialty Start Date End Date Jewels Sorto APRN PCP - General 05/24/10 01/09/18 documented as of this encounter
--- OUTSIDE RECORDS SUMMARY | 2024-02-04 18:40 | XMS_ITS | Encounter Summary ---
Author Organization [facility] Address [facility] [place] [address] Care Team Providers Care Director Of Home Economics Name Role Phone SteeleJewels ca Shruthi BAUM Primary Care Provider [phone] Reason for Visit * Reason Comments Radiation Treatment Encounter Details Date Type Department Care Team (Late st Contact Info) Description 09/21/2015 9:30 AM EDT Office Visit Radiation Oncology at [address] [phone] Maegan Eng MD [facility] [place] [address] Malignant neoplasm of left female breast, unspecified [...] Sign Reading Time Taken Comments Blood Pressure 127/74 09/21/2015 9:00 AM EDT Pulse 85 09/21/2015 9:00 AM EDT Temperature 36.7 ??C (98.1 ??F) 09/21/2015 9:00 AM ED T Respiratory Rate 16 09/21/2015 9:00 AM EDT Oxygen Saturation 95% 09/21/2015 9:00 AM EDT Inhaled Oxygen Concentration - - Weight 94.2 kg (207 lb 9.6 oz) 09/21/2015 9:00 A M EDT Height - - Body Mass Index 32.58 08/16/2015 8:55 AM EST documented in this encounter Progress Notes * Maegan Eng MD - 09/21/2015 9:45 AM EDT DIAGNOSIS: Breast ca, L, IDC, low gr, ER+MA+, [id number]-, s/p lumpectomy & SNB, pT1b pN1a, stage II. S/p adjuvant chemo. CURRENT TREATMENT DOSE: 21.6 Gy L supraclav, L axilla & L breast ANTICIPATED TOTAL DOSE: 50.4 Gy L supraclav, L axilla & L breast, 60.4 Gy lumpectomy bed L breast Current # of xrt received: 12 Anticipated total # of xrt txs: 28 L supraclav, L axilla & L breast, 33 lumpectomy bed L breast Evaluation of port verification films: Approved. For details, see electronic film record in [employer]. Changes in Medical Condition: L shoulder blade/shoulder pain prevented by taking 800 mg ibuprofen 1hr prior to xrt. She does not need to take more ibuprofen & has not needed to take the oxycodone over the past wk. Mild tenderness if pushes on lumpectomy area. Skin w/in irrad'd area ok. Pain?: See above. Physical Exam: BP 127/74 mmHg Pulse 85 Temp(Src) 36.7 ??C (98.1 ??F) Resp 16 Wt 94.167 kg (207 lb 9.6 oz) SpO2 95% A&Ox3, in NAD. L breast, supraclav & axilla w/o erythema. L breasttender to deep palpation @ lumpectomy site; no palpable abnlty on exam. Nl ROM L arm. Xrays: 09/14/15 plain xrays L humerus, L shoulder & scapula: Neg. Response to xrt: As expected. Irradiation Related Symptoms: None. Treatment for Symptom Control: Reyes's cream. Pain Management: Ibuprofen. Recommendation on Continuing Course of xrt: Cont. documented in this encounter Plan of Treatment Upcoming Encounters Date Type Department Care Team (Late st Contact Info) Description 12/04/2024 11:00 AM EDT Office Visit [place] [address] Roddy Olson MD [facility] [place] [address] documented as of this encounter Visit Diagnoses Diagnosis Malignant neoplasm of left female breast, unspecified site of breast documented in this encounter Care Teams Director Of Home Economics Relationship Specialty Start Date End Date Jewels Sorto APRN PCP - General 05/24/10 01/09/18 documented as of this encounter
--- OUTSIDE RECORDS SUMMARY | 2024-02-04 18:40 | XMS_ITS | Encounter Summary ---
Author Organization [facility] [place] [address] Care Team Providers Care Pleat Patternmaker Name Role Phone Jewels Sorto APRN Primary Care Provider [phone] Reason for Visit * Reason Comments Breast Cancer Encounter Details Date Type Department Care Team (Late st Contact Info) Description 08/09/2015 9:00 AM EST Office Visit Hematology/Oncology at [address] [phone] Hector Carey MD [address] [place] [address] Malignant neoplasm of upper-outer quadrant of [...] Sign Reading Time Taken Comments Blood Pressure 140/76 08/09/2015 9:00 AM EST Pulse 87 08/09/2015 9:00 AM EST Temperature 36.7 ??C (98.1 ??F) 08/09/2015 9:00 AM ES T Respiratory Rate 16 08/09/2015 9:00 AM EST Oxygen Saturation 99% 08/09/2015 9:00 AM EST Inhaled Oxygen Concentration - - Weight 94.3 kg (208 lb) 08/09/2015 9:00 AM EST Height 170 cm (5' 6.93) 08/09/2015 9:00 AM EST Body Mass Index 32.65 08/09/2015 9:00 AM EST documented in this encounter Progress Notes * Hector Carey MD - 08/09/2015 9:24 AM EST Diagnosis: 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 The tumor was 0.7 cm, low-grade, ER/RI positive, with 1 of 3 sentinel positive nodes. HER-2 was negative. Subjective: Kelley comes in today for week 11 of 12 planned weekly Taxol treatments, which are being given following dose dense Adriamycin and Cytoxan in the adjuvant treatment of her breast cancer. She is continuing to do well with the treatment although is now starting to notice a little bit of neuropathy in her fingertips and toes. It is mild and does not interfere with her ability to do things. Nausea and vomiting have been controlled and her bowels have been fine. She is continuing on some suppressive Famvir and has not had an herpetic reoccurrence with no mouth sores at all. She continues to have a very small ulcer in a skinfold on her right lower quadrant at an old appendectomy scar site. We talked about local management of that. It is quite small without any associated redness. She is not able to keep that skinfold open so the area is chronically a bit moist. Additionally, we discussed that next week will be her last chemotherapy and she would like to get her port out so we will make arrangements for that. Past medical history and social history were reviewed from one week ago and unchanged. Current Outpatient Prescriptions on File Prior to Visit Medication Sig Dispense Refill ??? acyclovir (ZOVIRAX) 400 mg Tablet Take 1 tablet by mouth 2 times daily. Take 400 mg BID x 7 days 60 tablet 1 ??? hydrochlorothiazide (HYDRODIURIL) 25 mg Tablet Take 25 mg by mouth daily. ??? ibuprofen (ADVIL;MOTRIN) 800 mg Tablet 600 [...] as needed for Nausea. 30 tablet 3 No current facility-administered medications on file prior to visit. . No Known Allergies The patient is currently on disability from her breast cancer. 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 Hematological: Negative for adenopathy. BP 140/76 mmHg Pulse 87 Temp(Src) 36.7 ??C (98.1 ??F) (Oral) Resp 16 Ht 170 cm (5' 6.93) Wt 94.348 kg (208 lb) BMI 32.65 kg/m2 SpO2 99% Head: Normocephalic, without obvious abnormality, atraumatic Eyes: [...] normal Neurologic: Normal Review of her laboratory today shows a sodium of 141, potassium 3.7, creatinine of 0.78, an ALP of 90, albumin of 3.3. CBC shows a white count of 4.22, absolute neutrophil count of 2.7, hemoglobin 11.3, hematocrit 33.4, and a platelet count of 309,000. Kelley is fine today for her eleventh treatment with Taxol. She is starting to get some peripheral neuropathy. She has some chemotherapy associated anemia, which we will continue to watch but this appears to be getting better on the weekly taxane. She has a small ulceration and we talked about using some bacitracin ointment in this area as an antibiotic barrier cream. She will try that. We will arrange to get her port out and anticipate her final chemotherapy next week. She is an ER positive patient and so after radiation therapy we would consider adding an aromatase inhibitor to her treatment regimen. We have discussed the previously but will emphasize it again next week when we see her back. documented in this encounter Plan of Treatment Upcoming Encounters Date Type Department Care Team (Late st Contact Info) Description 12/04/2024 11:00 AM EDT Office Visit [place] [address] Roddy Olson MD [facility] [place] [address] documented as of this encounter Procedures Procedure Name Priority Date/Time Associated Diagnosis Comments LAB SCAN 08/09/2015 12:00 AM EST documented in this encounter Results * SCAN DOC: LAB (08/09/2015 12:00 AM EST) Scanning Provider MEDIA MGR SCAN EXT O RDR/RSLT documented in this encounter Visit Diagnoses Diagnosis Malignant neoplasm of upper-outer quadrant of left female breast Malignant neoplasm of upper-outer quadrant of female breast documented in this encounter Care Teams Pleat Patternmaker Relationship Specialty Start Date End Date Jewels Sorto APRN PCP - General 05/24/10 01/09/18 documented as of this encounter
--- OUTSIDE RECORDS SUMMARY | 2024-02-04 18:40 | XMS_ITS | Encounter Summary ---
Author Organization [facility] [place] [address] Care Team Providers Care Conduit Helper Name Role Phone NoreenLatishaandreas Hawkins APRN Primary Care Provider [phone] Reason for Visit * Reason Comments Breast Cancer Encounter Details Date Type Department Care Team (Late st Contact Info) Description 10/28/2015 3:00 PM EDT Office Visit Hematology/Oncology at [address] [phone] Hector Carey MD [address] [place] [address] Malignant neoplasm of left female breast, unspecified [...] Sign Reading Time Taken Comments Blood Pressure 127/65 10/28/2015 2:59 PM EDT Pulse 87 10/28/2015 2:59 PM EDT Temperature 36.7 ??C (98.1 ??F) 10/28/2015 2:59 PM ED T Respiratory Rate 16 10/28/2015 2:59 PM EDT Oxygen Saturation 97% 10/28/2015 2:59 PM EDT Inhaled Oxygen Concentration - - Weight 93.4 kg (206 lb) 10/28/2015 2:59 PM EDT Height 168.8 cm (5' 6.46) 10/28/2015 2:59 PM ED T COPIED Body Mass Index 32.79 10/28/2015 2:59 PM EDT documented in this encounter Progress Notes * Hector Carey MD - 10/28/2015 3:17 PM EDT Diagnosis: 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 The tumor was 0.7 cm, low-grade, ER/MD positive, with 1 of 3 sentinel positive nodes. HER-2 was negative. Subjective: Kelley comes in today after the completion of her radiation therapy to lessen her chance of local reoccurrence of her breast cancer. Plans today were to start her on an aromatase inhibitor, Femara 2.5 mg daily. In talking to her, however, for the past couple of weeks she started having anxiety attacks in the evening. She will often wake up with cold sweats and tightness in her chest and gets very anxious. It has been bad enough that she has been to the emergency room a couple of times, and apparently she is just having an anxiety attack. She was given some Ativan by Dr. Euceda, and it does help her to sleep a bit better, but it has not done anything about her having trouble sleeping or having these episodes. She is thinking a lot about having to look for work again and getting back to a normal routine, and that is causing her a bit of stress. She is not suicidal. She does not view herself as being depressed. Review of systems is otherwise negative, except that she just had a uterine biopsy. The pathology is pending, but apparently it was a fairly uncomfortable procedure. She, however, does not believe she is having anxiety related to that. Past medical history and social history were reviewed from 8 weeks ago and unchanged. Current Outpatient Prescriptions on File Prior to Visit Medication Sig Dispense Refill ??? LORazepam (ATIVAN) [...] 6 hours as needed for Wheezing. ??? acetaminophen (TYLENOL) 650 mg Tablet Sustained [...] 40 mg by mouth nightly. 0 ??? oxyCODONE 5 mg Capsule Take 5 mg by mouth every 4 hours as needed. Took @@ bedtime 09/13/15 for L shoulder pain. ??? [DISCONTINUED] acyclovir (ZOVIRAX) 400 mg Tablet Take 1 tablet by mouth 2 times daily. Take 400mg BID x 7 days 60 tablet 1 ??? prochlorperazine (COMPAZINE) 10 mg Tablet Take 1 tablet by mouth every 6 hours as needed for Nausea. 30 tablet 3 No current facility-administered medications on file prior to visit. . No Known Allergies The patient is currently on disability from her breast cancer. 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 Hematological: Negative for adenopathy. BP 127/65 mmHg Pulse 87 Temp(Src) 36.7 ??C (98.1 ??F) (Oral) Resp 16 Ht 168.8 cm (5' 6.46) Wt 93.441 kg (206 lb) BMI 32.79 kg/m2 SpO2 97% Head: Normocephalic, without obvious abnormality, atraumatic Eyes: [...] supraclavicular, and axillary nodes normal Neurologic: Normal Assessment/Plan: Kelley is having anxiety attacks, and I do not think it is the right time to start her aromatase inhibitor which may give her hot flashes and some other symptoms. That being said, I think she might benefit from an antidepressant, and we will start her on Celexa 20 mg daily. I also think she might benefit from some sessions and appointments with Dorcas Dickinson. We will arrange for those. I would like to see Kelley back in a month, and we will plan on starting Femara 2.5 mg a day at that time. She will call if there are issues or problems in the interim or if she has any problem with the new medication. documented in this encounter Plan of Treatment Upcoming Encounters Date Type Department Care Team (Late st Contact Info) Description 12/04/2024 11:00 AM EDT Office [place] [address] Roddy Olson MD [facility] [place] [address] documented as of this encounter Visit Diagnoses Diagnosis Malignant neoplasm of left female breast, unspecified site of breast documented in this encounter Care Teams Conduit Helper Relationship Specialty Start Date End Date Jewels Sorto APRN PCP - General 05/24/10 01/09/18 documented as of this encounter
--- OUTSIDE RECORDS SUMMARY | 2024-02-04 18:40 | XMS_ITS | Encounter Summary ---
Author Organization [facility] [place] [address] Care Team Providers Care General Duty Nurse Name Role Phone Jewels Sorto APRN Primary Care Provider [phone] Reason for Visit * Reason Comments Chemotherapy Day 15, Cycle 1 Pacl itaxel * Treatment/Therapy Plan Authorization (Routine) - Closed Specialty Diagnoses / Procedures Referred By Saad t Referred To Contact Hematology and Oncology Diagnoses Malignant neoplasm of unspecified site of left female breast Procedures TC PACLITAXEL, 1MG, INJ Hector Carey MD [address] [place] [address] Hector Carey MD [address] [place] [address] Referral ID Status Reason Start Date Expiration Date Visits Re quested Visits Authorized [id number] Closed 08/18/2015 08/17/2016 24 24 Encounter Details Date Type Department Care Team (Late st Contact Info) Description 07/05/2015 9:30 AM EST Infusion Hematology Oncology at [address] [address] Malignant neoplasm of central portion [...] Progress Notes * Leatha Alonzo RN - 07/05/2015 9:18 AM EST INFUSION THERAPY ADMINISTRATION NOTES DIAGNOSIS: LEFT BREAST CANCER CYCLE #: Cycle 2, Day 15 Paclitaxel REASON FOR VISIT: To receive chemotherapy SUBJECTIVE: Kelley offers no complaints. OBJECTIVE: VSS. Weight stable. LAB DATA: WBC - 5.50, H/H - 11.1/32.2, Plt Ct - 333, ANC - 3.75. Chemistries acceptable range to receive treatment. IV ACCESS: Presents with port accessed from an off site. Pre administration: Chemotherapy orders independently verified for drug name, route, and dosage per patient's height, weight and BSA by Annika Alonzo RN and pharmacist. REACTIONS (DESCRIPTION, TIME, INTERVENTION AND EFFECTIVENESS) none Tolerated infusion. Port flushed with 20 cc of NS and 500 units of heparin and de-accessed. ASSESSMENT: Kelley was awake, alert and tolerated treatment well. PLAN: Return to clinic in one week. documented in this encounter Plan of Treatment Upcoming Encounters Date Type Department Care Team (Late st Contact Info) Description 12/04/2024 11:00 AM EDT Office [place] [address] Roddy Olson MD [facility] [place] [address] documented as of this encounter Visit Diagnoses Diagnosis Malignant neoplasm of central portion of left female breast Malignant neoplasm of central portion of female breast documented in this encounter Administered Medications Inactive Administered Medications - up to 3 most recent administrations Medication Order MAR Action Action Date Dose Rate Site dexamethasone (DECADRON) injection 10 mg 10 mg, Intravenous, ONCE, 1 dose, On Sun07/05/15 at 0945, Administer 30 minutes prior to PACLitaxel Given 07/05/2015 9:48 AM EST 10 mg diphenhydrAMINE (BENADRYL) injection 25 mg 25 mg, Intravenous, ONCE, 1 dose, On Sun07/05/15 at 0945, Administer 30 minutes prior to PACLitaxel, Routine Given 07/05/2015 9:44 AM EST 25 mg famotidine (PEPCID) injection 20 mg 20 mg, Intravenous, ONCE, 1 dose, On Sun07/05/15 at 0945, Administer 30 minutes prior to PACLitaxel Given 07/05/2015 9:51 AM EST 20 mg heparin, porcine 100 unit/mL flush 500 Units 500 Units, Intravenous, ONCE PRN, Starting on Sun07/05/15 at 0916, Until Sun07/05/15 at 1522, Line Care, Refer to Intravenous (IV) Procedure: Accessing Implanted Vascular Access Devices (654) procedure and/or Intravenous (IV) Job Aid: Adult Flushing & Catheter Care (4882) job aid for additional information regarding guidelines and administration., Routine Given 07/05/2015 11:55 AM EST 500 Units PACLitaxel (TAXOL) 166 mg in dextrose 5% Non-PVC 277.6667 mL chemo infusion 166 mg (rounded from 165.6 mg = 80 mg/m2/dose ? 2.07 m2 Treatment Plan BSA from Recorded weight), Intravenous, ONCE, 1 dose, On Sun07/05/15 at 1030, Administer over 60 Minutes New Bag 07/05/2015 10:42 AM EST 166 mg 278 mL/hr palonosetron (ALOXI) injection 0.25 mg 0.25 mg, Intravenous, ONCE, 1 dose, On Sun07/05/15 at 0945, Routine Given 07/05/2015 9:53 AM EST 0.25 mg sodium chloride 0.9 % flush 5-20 mL 5-20 mL, Intravenous, EVERY 1 MIN PRN, Starting on Sun07/05/15 at 0916, Until Sun07/05/15 at 1522, Line Care, Flush pertains to all indwelling lines. Flush per protocol found in the job aid using the link provided on this medication record. Refer to Intravenous (IV) Job Aid: Adult Flushing & Catheter Care (2731) job aid for additional information regarding guidelines and administration., Routine Given 07/05/2015 11:55 AM EST 20 mLs documented in this encounter Care Teams General Duty Nurse Relationship Specialty Start Date End Date Jewels Sorto APRN PCP - General 05/24/10 01/09/18 documented as of this encounter
--- OUTSIDE RECORDS SUMMARY | 2024-02-04 18:40 | XMS_ITS | Encounter Summary ---
Author Organization Formerly [facility] Address [facility] [place] [address] Care Team Providers Care Vice President Industrial Relations Name Role Phone Jewels Sorto APRN Primary Care Provider [phone] Reason for Visit * Reason Comments Chemotherapy Taxol * Treatment/Therapy Plan Authorization (Routine) - Closed Specialty Diagnoses / Procedures Referred By Contac t Referred To Contact Hematology and Oncology Diagnoses Malignant neoplasm of unspecified site of left female breast Procedures TC PACLITAXEL, 1MG, INJ Hector Carey MD [address] [place] [address] Hector Carey MD [address] [place] [address] Referral ID Status Reason Start Date Expiration Date Visits Re quested Visits Authorized [id number] Closed 08/18/2015 08/17/2016 24 24 Encounter Details Date Type Department Care Team (Late st Contact Info) Description 07/26/2015 10:00 AM EST Infusion Hematology Oncology at [address] [address] Malignant neoplasm of central portion [...] Progress Notes * Lily Garcia RN - 07/26/2015 3:26 PM EST INFUSION THERAPY ADMINISTRATION NOTES DIAGNOSIS: Breast Cancer CYCLE #: 3 day 15 REASON FOR VISIT: Taxol SUBJECTIVE Kelley offers no complaints. OBJECTIVE LAB DATA:WNL IV ACCESS: Mediport Pre administration: Chemotherapy orders independently verified for drug name, route, and dosage per patient's height, weight and BSA by Lily Garcia RN and Maira Wang [facility]. REACTIONS (DESCRIPTION, TIME, INTERVENTION AND EFFECTIVENESS) none ASSESSMENT Kelley was awake, alert and tolerated treatment well. PLAN Return to clinic per routine. documented in this encounter Plan of Treatment Upcoming Encounters Date Type Department Care Team (Late st Contact Info) Description 12/04/2024 11:00 AM EDT Office [place] [address] Roddy Olson MD [facility] [place] [address] documented as of this encounter Visit Diagnoses Diagnosis Malignant neoplasm of central portion of left female breast Malignant neoplasm of central portion of female breast documented in this encounter Administered Medications Inactive Administered Medications - up to 3 most recent administrations Medication Order MAR Action Action Date Dose Rate Site dexamethasone (DECADRON) injection 10 mg 10 mg, Intravenous, ONCE, 1 dose, On Sun07/26/15 at 0945, Administer 30 minutes prior to PACLitaxel Given 07/26/2015 10:04 AM EST 10 mg diphenhydrAMINE (BENADRYL) injection 25 mg 25 mg, Intravenous, ONCE, 1 dose, On Sun07/26/15 at 0945, Administer 30 minutes prior to PACLitaxel, Routine Given 07/26/2015 10:08 AM EST 25 mg famotidine (PEPCID) injection 20 mg 20 mg, Intravenous, ONCE, 1 dose, On Sun07/26/15 at 0945, Administer 30 minutes prior to PACLitaxel Given 07/26/2015 10:01 AM EST 20 mg heparin, porcine 100 unit/mL flush 500 Units 500 Units, Intravenous, ONCE PRN, Starting on Sun07/26/15 at 0916, Until Sun07/26/15 at 1729, Line Care, Refer to Intravenous (IV) Procedure: Accessing Implanted Vascular Access Devices (654) procedure and/or Intravenous (IV) Job Aid: Adult Flushing & Catheter Care (5014) job aid for additional information regarding guidelines and administration., Routine Given 07/26/2015 12:15 PM EST 500 Units PACLitaxel (TAXOL) 166 mg in dextrose 5% Non-PVC 277.6667 mL chemo infusion 166 mg (rounded from 165.6 mg = 80 mg/m2/dose ? 2.07 m2 Treatment Plan BSA from Recorded weight), Intravenous, ONCE, 1 dose, On Sun07/26/15 at 1030, Administer over 60 Minutes New Bag 07/26/2015 11:07 AM EST 166 mg 278 mL/hr palonosetron (ALOXI) injection 0.25 mg 0.25 mg, Intravenous, ONCE, 1 dose, On Sun07/26/15 at 0945, Routine Given 07/26/2015 10:00 AM EST 0.25 mg sodium chloride 0.9 % flush 5-20 mL 5-20 mL, Intravenous, EVERY 1 MIN PRN, Starting on Sun07/26/15 at 0916, Until Sun07/26/15 at 1729, Line Care, Flush pertains to all indwelling lines. Flush per protocol found in the job aid using the link provided on this medication record. Refer to Intravenous (IV) Job Aid: Adult Flushing & Catheter Care (5110) job aid for additional information regarding guidelines and administration., Routine Given 07/26/2015 12:15 PM EST 20 mLs documented in this encounter Care Teams Vice President Industrial Relations Relationship Specialty Start Date End Date Jewels Sorto APRN PCP - General 05/24/10 01/09/18 documented as of this encounter
--- OUTSIDE RECORDS SUMMARY | 2024-02-04 18:40 | XMS_ITS | Encounter Summary ---
Author Organization [facility] [place] [address] Care Team Providers Care Machine Etcher Name Role Phone Jewels Sorto APRN Primary Care Provider Reason for Visit * Reason Comments Breast Cancer Encounter Details Date Type Department Care Team (Late st Contact Info) Description 06/14/2015 9:00 AM EST Office Visit Hematology/Oncology at [address] [address] Hector Carey MD [address] [place] [address] Breast cancer, left breast Social History [...] Sign Reading Time Taken Comments Blood Pressure 122/71 06/14/2015 8:45 AM EST Pulse 81 06/14/2015 8:45 AM EST Temperature 36.6 ??C (97.9 ??F) 06/14/2015 8:45 AM ES T Respiratory Rate 18 06/14/2015 8:45 AM EST Oxygen Saturation 100% 06/14/2015 8:45 AM EST Inhaled Oxygen Concentration - - Weight 91.2 kg (201 lb) 06/14/2015 8:45 AM EST Height 170 cm (5' 6.93) 06/14/2015 8:45 AM EST Body Mass Index 31.55 06/14/2015 8:45 AM EST documented in this encounter Progress Notes * Hector Carey MD - 06/14/2015 9:13 AM EST Diagnosis: 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 The tumor was 0.7 cm, low-grade, ER/MI positive, with 1 of 3 sentinel positive nodes. HER-2 was negative. Subjective: Kelley comes in today for week three of 12 weekly Taxol treatments. Her nausea is completely gone now and her appetite has improved along with her sense of taste. She is doing better in that regard. She does notice some achiness starting about three days after treatment and lasting for several days. Some of the literature she was given suggested she should not take a nonsteroidal anti-inflammatory and we discussed that in view of the fact that we are checking weekly platelets and they are fine. Otherwise though, she is not having any tingling or numbness. She is not having particular dyspnea on exertion or other difficulties. She has no rash. Past medical history and social history were [...] her breast cancer. She works at a [employer] in [place] but will be soon looking for a [...] Neurological: Negative. Hematological: Negative for adenopathy. BP 122/71 mmHg Pulse 81 Temp(Src) 36.6 ??C (97.9 ??F) (Oral) Resp 18 Ht 170 cm (5' 6.93) Wt 91.173 kg (201 lb) BMI 31.55 kg/m2 SpO2 100% Head: Normocephalic, without obvious [...] supraclavicular, and axillary nodes normal Neurologic: Normal Laboratory today shows normal electrolytes. Creatinine is 0.7. ALP is 83. Calcium is 8.8. CBC shows a white count of 5.28, hemoglobin is stable at 10.6 and up from its low point of 10.2 after four cycles of AC. Platelet count is 268 and absolute neutrophil count is 3.3. Assessment/Plan: Kelley is fine today for week three of treatment. She is having classic side effects with achiness post taxane treatment but it is reasonably mild. Considering the clinical situation, I see no problem with her taking some ibuprofen and she will do that. She also can take Tylenol as needed. She is not having any peripheral neuropathy. Her chemotherapy associated anemia is stabilized and will probably improve on treatment but we will keep an eye on it. Nausea and vomiting is well controlled and her bowel function is fine. She is not having any allergic reactions to the taxane. We will see her back next week with a CBC and CMP for week four of 12. She will call if there are issues or problems in the interim. documented in this encounter Plan of Treatment Upcoming Encounters Date Type Department Care Team (Late st Contact Info) Description 12/04/2024 11:00 AM EDT Office [place] [address] Roddy Olson MD [facility] [place] [address] documented as of this encounter Visit Diagnoses Diagnosis Breast cancer, left breast Malignant neoplasm of breast (female), unspecified site documented in this encounter Care Teams Machine Etcher Relationship Specialty Start Date End Date Jewels Sorto APRN PCP - General 05/24/10 01/09/18 documented as of this encounter
--- OUTSIDE RECORDS SUMMARY | 2024-02-04 18:40 | XMS_ITS | Encounter Summary ---
Author Organization [facility] [place] [address] Care Team Providers Care Cellar Hand Name Role Phone Jewels Sorto APRN Primary Care Provider [phone] Reason for Visit * Reason Comments Breast Cancer Encounter Details Date Type Department Care Team (Late st Contact Info) Description 06/21/2015 9:00 AM EST Office Visit Hematology/Oncology at [address] [phone] Hector Carey MD [address] [place] [address] Breast cancer, left breast Social History [...] Sign Reading Time Taken Comments Blood Pressure 147/83 06/21/2015 8:52 AM EST Pulse 80 06/21/2015 8:52 AM EST Temperature 36.7 ??C (98.1 ??F) 06/21/2015 8:52 AM ES T Respiratory Rate 16 06/21/2015 8:52 AM EST Oxygen Saturation 98% 06/21/2015 8:52 AM EST Inhaled Oxygen Concentration - - Weight 92.1 kg (203 lb) 06/21/2015 8:52 AM EST Height 170 cm (5' 6.93) 06/21/2015 8:52 AM EST Body Mass Index 31.86 06/21/2015 8:52 AM EST documented in this encounter Progress Notes * Hector Carey MD - 06/21/2015 9:15 AM EST Diagnosis: 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 The tumor was 0.7 cm, low-grade, ER/NH positive, with 1 of 3 sentinel positive nodes. HER-2 was negative. Subjective: Kelley comes in today for followup and her fourth week of chemotherapy in the adjuvant treatment of her breast cancer. She is currently on week four of 12 weekly Taxol treatments. Since starting the Taxol, she has steadily improved as the symptoms from her Adriamycin and Cytoxan given previously have worn off. At the current time, she is not having any nausea or vomiting and feels quite good the day after treatment. After that though, she is having a bit of achiness at night but fortunately that is completely relieved with some ibuprofen. Her bowels are doing well and she is not having any nail changes or nail problems and no evidence for neuropathy or any symptoms that way at all. She is not having any rashes. Review of systems is otherwise negative. 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 Hematological: Negative for adenopathy. BP 147/83 mmHg Pulse 80 Temp(Src) 36.7 ??C (98.1 ??F) (Oral) Resp 16 Ht 170 cm (5' 6.93) Wt 92.08 kg (203 lb) BMI 31.86 kg/m2 SpO2 98% Head: Normocephalic, without obvious abnormality, atraumatic Eyes: [...] Review of her laboratory today shows a white count of 5.3, hemoglobin 10.7, hematocrit 31.6, platelet count is 254. CMP shows a creatinine of 0.75, an alkaline phosphatase of 82, albumin of 3.1, and calcium of 8.6. Electrolytes are normal. Assessment/Plan: Kelley is doing well and fine today for week four of 12 weekly Taxol treatments. We will go ahead with that as planned. There are no changes made in antiemetics as she is doing well in that regard. Her chemotherapy associated anemia has stabilized and we will continue to watch that. It frequently will get some better while on this part of the chemotherapy. Her bowels are fine and her treatment associated myalgias and arthralgias are being well managed with a very low dose of ibuprofen. She will call if there are issues or problems in the interim but otherwise we will see her next week for cycle five of 12. documented in this encounter Plan of Treatment Upcoming Encounters Date Type Department Care Team (Late st Contact Info) Description 12/04/2024 11:00 AM EDT Office [place] [address] Roddy Olson MD [facility] [place] [address] documented as of this encounter Visit Diagnoses Diagnosis Breast cancer, left breast Malignant neoplasm of breast (female), unspecified site documented in this encounter Care Teams Cellar Hand Relationship Specialty Start Date End Date Jewels Sorto APRN PCP - General 05/24/10 01/09/18 documented as of this encounter
--- OUTSIDE RECORDS SUMMARY | 2024-02-04 18:40 | XMS_ITS | Encounter Summary ---
Author Organization [facility] Address [facility] [place] [address] Care Team Providers Care Political Aide Name Role Phone Jewels Sorto APRN Primary Care Provider [phone] Reason for Visit * Reason Comments Chemotherapy cycle 3 day 1 * Treatment/Therapy Plan Authorization (Routine) - Closed Specialty Diagnoses / Procedures Referred By Saad t Referred To Contact Hematology and Oncology Diagnoses Malignant neoplasm of unspecified site of left female breast Procedures TC PACLITAXEL, 1MG, INJ Hector Carey MD [address] [place] [address] Hector Carey MD [address] [place] [address] Referral ID Status Reason Start Date Expiration Date Visits Re quested Visits Authorized [id number] Closed 08/18/2015 08/17/2016 24 24 Encounter Details Date Type Department Care Team (Late st Contact Info) Description 07/12/2015 12:30 PM EST Infusion Hematology Oncology at [address] [phone] Malignant neoplasm of central portion [...] Progress Notes * Lily Garcia RN - 07/12/2015 4:20 PM EST INFUSION THERAPY ADMINISTRATION NOTES DIAGNOSIS: Breast Cancer CYCLE #: Cycle 3 day 1 REASON FOR VISIT: Paclitaxel SUBJECTIVE Kelley offers no complaints. OBJECTIVE LAB DATA:WNL IV ACCESS: Mediport Pre administration: Chemotherapy orders independently verified for drug name, route, and dosage per patient's height, weight and BSA by Lily Garcia RN and Maira Wang [facility]. Kelley was awake, alert and tolerated treatment well. PLAN Return to clinic per routine. documented in this encounter Plan of Treatment Upcoming Encounters Date Type Department Care Team (Late st Contact Info) Description 12/04/2024 11:00 AM EDT Office [place] [address] Roddy Olson MD [facility] [place] [address] documented as of this encounter Visit Diagnoses Diagnosis Malignant neoplasm of central portion of left female breast Malignant neoplasm of central portion of female breast documented in this encounter Administered Medications Inactive Administered Medications - up to 3 most recent administrations Medication Order MAR Action Action Date Dose Rate Site dexamethasone (DECADRON) injection 10 mg 10 mg, Intravenous, ONCE, 1 dose, On Sun07/12/15 at 1300, Administer 30 minutes prior to PACLitaxel Given 07/12/2015 1:11 PM EST 10 mg diphenhydrAMINE (BENADRYL) injection 25 mg 25 mg, Intravenous, ONCE, 1 dose, On Sun07/12/15 at 1300, Administer 30 minutes prior to PACLitaxel, Routine Given 07/12/2015 1:17 PM EST 25 mg famotidine (PEPCID) injection 20 mg 20 mg, Intravenous, ONCE, 1 dose, On Sun07/12/15 at 1300, Administer 30 minutes prior to PACLitaxel Given 07/12/2015 1:15 PM EST 20 mg heparin, porcine 100 unit/mL flush 500 Units 500 Units, Intravenous, ONCE PRN, Starting on Sun07/12/15 at 1234, Until Sun07/12/15 at 1823, Line Care, Refer to Intravenous (IV) Procedure: Accessing Implanted Vascular Access Devices (654) procedure and/or Intravenous (IV) Job Aid: Adult Flushing & Catheter Care (7462) job aid for additional information regarding guidelines and administration., Routine Given 07/12/2015 3:15 PM EST 500 Units PACLitaxel (TAXOL) 166 mg in dextrose 5% Non-PVC 277.6667 mL chemo infusion 166 mg (rounded from 165.6 mg = 80 mg/m2/dose ? 2.07 m2 Treatment Plan BSA from Recorded weight), Intravenous, ONCE, 1 dose, On Sun07/12/15 at 1400, Administer over 60 Minutes New Bag 07/12/2015 2:09 PM EST 166 mg 278 mL/hr palonosetron (ALOXI) injection 0.25 mg 0.25 mg, Intravenous, ONCE, 1 dose, On Sun07/12/15 at 1300, Routine Given 07/12/2015 1:20 PM EST 0.25 mg sodium chloride 0.9 % flush 5-20 mL 5-20 mL, Intravenous, EVERY 1 MIN PRN, Starting on Sun07/12/15 at 1234, Until Sun07/12/15 at 1823, Line Care, Flush pertains to all indwelling lines. Flush per protocol found in the job aid using the link provided on this medication record. Refer to Intravenous (IV) Job Aid: Adult Flushing & Catheter Care (8365) job aid for additional information regarding guidelines and administration., Routine Given 07/12/2015 3:15 PM EST 20 mLs documented in this encounter Care Teams Political Aide Relationship Specialty Start Date End Date Jewels Sorto APRN PCP - General 05/24/10 01/09/18 documented as of this encounter
--- OUTSIDE RECORDS SUMMARY | 2024-02-04 18:40 | XMS_ITS | Encounter Summary ---
Author Organization Formerly [facility], [facility] Address [facility] [place] [address] Care Team Providers Care Liquor Runner Name Role Phone AshlandJewels ca Shruthi BAUM Primary Care Provider [phone] Encounter Details Date Type Department Care Team (Late st Contact Info) Description 07/26/2015 9:00 AM EST Office Visit Hematology/Oncology at [address] [phone] Hebert Washington MD [facility] [place] [address] Malignant neoplasm of central portion of left [...] Sign Reading Time Taken Comments Blood Pressure 124/55 07/26/2015 8:37 AM EST Pulse 84 07/26/2015 8:37 AM EST Temperature 36.7 ??C (98.1 ??F) 07/26/2015 8:37 AM ES T Respiratory Rate 16 07/26/2015 8:37 AM EST Oxygen Saturation 96% 07/26/2015 8:37 AM EST Inhaled Oxygen Concentration - - Weight 92.5 kg (204 lb) 07/26/2015 8:37 AM EST Height 170 cm (5' 6.93) 07/26/2015 8:37 AM EST Body Mass Index 32.02 07/26/2015 8:37 AM EST documented in this encounter Progress Notes * Hebert Washington MD - 07/26/2015 8:36 AM EST Diagnosis: 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 The tumor was 0.7 cm, low-grade, ER/LA positive, with 1 of 3 sentinel positive nodes. HER-2 was negative. Subjective: Interval history: Ms. Jensen is in clinic for follow-up appointment from her breast cancer and day 15 of Taxol. She denies any fever, chills, nausea eating, new pain. She felt mild muscle ache 4 1-2 days after last chemotherapy. The herpetic lesions in the mouth are healed, but there is one on her appendectomy scar which is still open. She denies pain, numbness or tingling in her fingertips or toes. HPI. Kelley Jensen is 60 y.o. F with breast cancer s/p lumpectomy, sentinel lymph node biopsy and fourth cycle of ddAC. She is currently on weekly Taxol Review of systems is otherwise negative with really no significant neuropathy. 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 Musculoskeletal: Muscle ache for 1-2 days after chemotherapy. Skin: smal open skin lesion on post-appendectomy scar. Neurological: Negative. Hematological: Negative for adenopathy. BP 124/55 mmHg Pulse 84 Temp(Src) 36.7 ??C (98.1 ??F) (Oral) Resp 16 Ht 170 cm (5' 6.93) Wt 92.534 kg (204 lb) BMI 32.02 kg/m2 SpO2 96% Head: Normocephalic, without obvious abnormality, atraumatic Eyes: [...] or edema Pulses: 2+ and symmetric Skin: Healed mouth lesions, one open lesion in left low quadrant of abdomen Lymph nodes: Cervical, supraclavicular, and axillary nodes normal Neurologic: Normal Labs: WBC 4.72, hemoglobin 10.8, platelet count 333, ANC 3.1, sodium 140, potassium 3.7, BUN 10, creatinine 0.86, calcium 8.8, TB 0.4, AST 21, ALT 26, alkaline phosphatase 84, total protein 6.4, albumin 3.2. Assessment/Plan: 1. Breast cancer: Kelley tolerates chemotherapy reasonably well. No signs of peripheral neuropathy. We will continue we'll proceed with day 15 of third cycle of Taxol. She'll follow with Dr. Carey next week with blood work and week 10 of Taxol 2. Herpetic infection: Continue acyiclovir Plan: 1. Next visit with Dr. Carey in 1 week with CBC, CMP and weekly Taxol.. documented in this encounter Miscellaneous Notes * Addendum Note - Hebert Washington MD - 07/26/2015 11:24 AM ESTAddended by: HEBERT WASHINGTON on: 07/26/2015 11:24 AM Modules accepted: Orders documented in this encounter Plan of Treatment Upcoming Encounters Date Type Department Care Team (Late st Contact Info) Description 12/04/2024 11:00 AM EDT Office Visit [place] [address] Roddy Olson MD [facility] [place] [address] documented as of this encounter Procedures Procedure Name Priority Date/Time Associated Diagnosis Comments LAB SCAN 07/26/2015 12:00 AM EST documented in this encounter Results * SCAN DOC: LAB (07/26/2015 12:00 AM EST) Scanning Provider MEDIA MGR SCAN EXT O RDR/RSLT documented in this encounter Visit Diagnoses Diagnosis Malignant neoplasm of central portion of left female breast Malignant neoplasm of central portion of female breast documented in this encounter Care Teams Liquor Runner Relationship Specialty Start Date End Date Jewels Sorto APRN PCP - General 05/24/10 01/09/18 documented as of this encounter
--- OUTSIDE RECORDS SUMMARY | 2024-02-04 18:40 | XMS_ITS | Encounter Summary ---
Author Organization [facility] [place] [address] Care Team Providers Care Woodwork Salvage Inspector Name Role Phone Jewels Sorto APRN Primary Care Provider [phone] Reason for Visit * Reason Comments Breast Cancer Encounter Details Date Type Department Care Team (Late st Contact Info) Description 07/05/2015 9:00 AM EST Office Visit Hematology/Oncology at [address] [phone] Hector Carey MD [address] [place] [address] Malignant neoplasm of central portion of left [...] Sign Reading Time Taken Comments Blood Pressure 121/70 07/05/2015 8:56 AM EST Pulse 91 07/05/2015 8:56 AM EST Temperature 37 ??C (98.6 ??F) 07/05/2015 8:56 AM EST Respiratory Rate 16 07/05/2015 8:56 AM EST Oxygen Saturation 98% 07/05/2015 8:56 AM EST Inhaled Oxygen Concentration - - Weight 92.5 kg (204 lb) 07/05/2015 8:56 AM EST Height 170 cm (5' 6.93) 07/05/2015 8:56 AM EST Body Mass Index 32.02 07/05/2015 8:56 AM EST documented in this encounter Progress Notes * Hector Carey MD - 07/05/2015 9:08 AM EST Diagnosis: 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 The tumor was 0.7 cm, low-grade, ER/ND positive, with 1 of 3 sentinel positive nodes. HER-2 was negative. Subjective: Kelley comes in today for number six of 12 planned weekly Taxol treatments being given after dose dense Adriamycin and Cytoxan in the treatment of her stage IIA adenocarcinoma of the left breast. She is tolerating the chemotherapy well. Last week, when we saw her, she had a red rash, approximately quarter size, on her right buttock, and was concerned that she might be again developing shingles. She did not have any specific pain with that area, however, and there was also consideration of this being a type two herpetic flare. She does not have a known history of that but it certainly would be consistent with that. We did put her on Famvir and that has resolved. She continues to have achiness posttreatment. This time it occurred 24 hours after treatment and lasted about three days and is consistent with what is considered to be a normal side effect of the taxane. Weekly treatment does tend to make that less, however, but nonetheless she is still having that. In view of her counts being okay, she has been given permission to take a nonsteroidal anti-inflammatory and that did help. She also notes she has been a bit grumpier than usual and has actually snapped at her , which is unusual for her. We talked about some of the emotional issues involved in going through treatment and she does tend to hold things in and not discuss her fears, worries, and concerns with her . I did encourage her to talk with him some and hopefully that will help. In talking today, we decided it would not be prudent to start her on an antidepressant at this point. Otherwise, though, she is doing fine without any neuropathy symptoms. 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 Hematological: Negative for adenopathy. BP 121/70 mmHg Pulse 91 Temp(Src) 37 ??C (98.6 ??F) (Oral) Resp 16 Ht 170 cm (5' 6.93) Wt 92.534 kg (204 lb) BMI 32.02 kg/m2 SpO2 98% Head: Normocephalic, without obvious [...] supraclavicular, and axillary nodes normal Neurologic: Normal Lab review shows a white count of 5.5, hemoglobin 11.1, hematocrit 32.2, platelet count 333, absolute neutrophil count of 3.75. CMP shows an essentially normal glucose at 120. ALP is 91. Creatinine is 0.82 and electrolytes are normal. Assessment/Plan: Kelley is doing better overall. She is fine today for number six of 12 planned weekly Taxol treatments. She has some mild chemotherapy associated anemia, which we are keeping an eye on and is improving on the taxane. Nutritional status is doing reasonably well and we did discuss some emotional issues with dealing with her cancer today and discussed strategies of trying to improve this situation. She has no evidence of neuropathy, as noted. We will see her back next week with a port draw CBC and CMP for consideration of week seven of 12 weekly treatments. documented in this encounter Plan of Treatment Upcoming Encounters Date Type Department Care Team (Late st Contact Info) Description 12/04/2024 11:00 AM EDT Office [place] [phone] Roddy Olson MD [facility] [place] [address] documented as of this encounter Procedures Procedure Name Priority Date/Time Associated Diagnosis Comments LAB SCAN 07/05/2015 12:00 AM EST documented in this encounter Results * SCAN DOC: LAB (07/05/2015 12:00 AM EST) Scanning Provider MEDIA MGR SCAN EXT O RDR/RSLT documented in this encounter Visit Diagnoses Diagnosis Malignant neoplasm of central portion of left female breast Malignant neoplasm of central portion of female breast documented in this encounter Care Teams Woodwork Salvage Inspector Relationship Specialty Start Date End Date Jewels Sorto APRN PCP - General 05/24/10 01/09/18 documented as of this encounter
--- OUTSIDE RECORDS SUMMARY | 2024-02-04 18:40 | XMS_ITS | Encounter Summary ---
Author Organization [facility] [place] [address] Care Team Providers Care Scientific Software Developer Name Role Phone Jewels Sorto APRN Primary Care Provider [phone] Encounter Details Date Type Department Care Team (Late st Contact Info) Description 07/19/2015 Orders Only Hematology Oncology at [address] [phone] Leatha Alonzo, RN Malignant neoplasm [...] AM EDT Office [place] [address] Roddy Olson MD [facility] [place] [address] documented as of this encounter Visit Diagnoses Diagnosis Malignant neoplasm of left female breast, unspecified site of breast documented in this encounter Care Teams Scientific Software Developer Relationship Specialty Start Date End Date Jewels Sorto APRN PCP - General 05/24/10 01/09/18 documented as of this encounter
--- OUTSIDE RECORDS SUMMARY | 2024-02-04 18:40 | XMS_ITS | Encounter Summary ---
Author Organization [facility] Address [facility] [place] [address] Care Team Providers Care Supervisor Rolling Room Name Role Phone NoreenLatishaandreas Hawkins APRN Primary Care Provider [phone] Encounter Details Date Type Department Care Team (Late st Contact Info) Description 09/14/2015 - 09/14/2015 11:59 PM EDT Hospital Encounter [place] [phone] Dr Liat Temporary Pain Discharge Disposition: Home Social History Tobacco Use [...] Sig Dispensed Refills Start Date End Date levothyroxine (SYNTHROID) 25 mcg Tablet Take by mouth daily. 0 01/15/2015 ipratropium-albuterol (COMBIVENT RESPIMAT) 20-100 mcg/actuation Mist Inhale 1 puff into the lungs every 6 hours as needed for Wheezing. Reported on 12/14/2016 11/17/2019 oxyCODONE 5 mg Capsule Take 5 mg by mouth every 4 hours as needed. Took @@ bedtime 09/13/15 for L shoulder pain. 11/04/2015 acetaminophen (TYLENOL) 650 mg Tablet Sustained Release Take 650 mg by mouth every 8 hours as needed for Pain. Do not exceed 6 tabs in 24 hours 11/17/2015 acyclovir (ZOVIRAX) 400 mg TabletIndications:Armando lopez neoplasm of left female breast, unspecified site of breast Take 1 tablet by mouth 2 times daily. Take 400 mg BID x 7 days 60 tablet 1 07/19/2015 10/28/2015 EMOLLIENT BASE (CREAM BASE TOP) Apply topically. Reported on 12/14/2016 05/07/2017 hydrochlorothiazide (HYDRODIURIL) 25 mg Tablet Take 25 mg by mouth daily. 07/22/2018 prochlorperazine (COMPAZINE) 10 mg TabletIndications:Mary escobar cancer, female, unspecified laterality Take 1 tablet by mouth every 6 hours as needed for Nausea. 30 tablet 3 03/15/2015 12/08/2015 ibuprofen (ADVIL;MOTRIN) 800 mg Tablet 600 mg. 0 08/27/2014 11/17/2015 simvastatin (ZOCOR) 40 mg Tablet Take 40 mg by mouth nightly. 0 01/15/2015 09/22/2019 documented as of this encounter Plan of Treatment Upcoming Encounters Date Type Department Care Team (Late st Contact Info) Description 12/04/2024 11:00 AM EDT Office Visit [place] [address] Roddy Olson MD [facility] [place] [address] documented as of this encounter Procedures Procedure Name Priority Date/Time Associated Diagnosis Comments FILM LIBRARY STORAGE ONLY DX SHOULDER Routine 09/14/2015 12:00 AM EDT Pain documented in this encounter Results * Film Library- Storage only DX Shoulder (09/14/2015 12:00 AM EDT) Narrative [facility] - 09/14/2015 3:28 PM EDT See PACS for result report. Dr Moisés RIVERA FILM LIBRARY ORD ERABLES [place], [place] documented in this encounter Visit Diagnoses Diagnosis Pain Generalized pain documented in this encounter Care Teams Supervisor Rolling Room Relationship Specialty Start Date End Date Jewels Sorto APRN PCP - General 05/24/10 01/09/18 documented as of this encounter
--- OUTSIDE RECORDS SUMMARY | 2024-02-04 18:40 | XMS_ITS | Encounter Summary ---
Author Organization [facility] [address] Care Team Providers Care Bike Assembler Name Role Phone Jewels Sorto APRN Primary Care Provider [phone] Reason for Visit * Reason Comments Breast Cancer Encounter Details Date Type Department Care Team (Late st Contact Info) Description 07/19/2015 9:00 AM EST Office Visit Hematology/Oncology at [address] [phone] Hector Carey MD [address] [place] [address] Malignant neoplasm of upper-outer quadrant of [...] Sign Reading Time Taken Comments Blood Pressure 132/73 07/19/2015 8:29 AM EST Pulse 99 07/19/2015 8:29 AM EST Temperature 36.7 ??C (98.1 ??F) 07/19/2015 8:29 AM ES T Respiratory Rate 18 07/19/2015 8:29 AM EST Oxygen Saturation 100% 07/19/2015 8:29 AM EST Inhaled Oxygen Concentration - - Weight 92.8 kg (204 lb 8 oz) 07/19/2015 8:29 AM EST Height 170 cm (5' 6.93) 07/19/2015 8:29 AM EST Body Mass Index 32.1 07/19/2015 8:29 AM EST documented in this encounter Progress Notes * Hector Carey MD - 07/19/2015 8:40 AM EST Diagnosis: 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 The tumor was 0.7 cm, low-grade, ER/AK positive, with 1 of 3 sentinel positive nodes. HER-2 was negative. Subjective: Kelley comes in today for week eight of 12 planned weekly Taxol chemotherapies in the adjuvant treatment of her breast cancer. We are treating her with 12 weekly cycles following her dose-dense Adriamycin and Cytoxan. She again has herpetic lesions on her lips and is not having any lower down, although she does have a little tiny 3 mm ulceration at the site of a skin fold on her lower abdomen at her McBurney's point incision from her appendectomy. She is putting calamine lotion on it, and we discussed using bacitracin instead. She is not having any fever or chills. She is a bit fatigued overall. At the current time, she is unemployed and trying to get disability and also unemployment. Unfortunately, getting unemployment requires her to be able to work, although with her on treatment with four more weeks of chemotherapy and six weeks of radiation ahead of her, she will not be able to work for about three months. She did request a letter stating this, and that is provided today. 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 Review of systems is otherwise negative with really no significant neuropathy. She does have some early nail changes on her thumbnail on the left, not anywhere else. Besides the mild cold sores on her lip, review of systems is otherwise negative except for her usual treatment-related fatigue. Past medical history and social history were [...] Tablet Take by mouth daily. 0 ??? EMOLLIENT BASE (CREAM BASE TOP) Apply topically. Jeans Cream. Apply to area of radiation twice a day but no less than 2 hours before a treatment. ??? simvastatin (ZOCOR) 40 mg Tablet Take 40 mg by mouth nightly. 0 No current facility-administered medications on file prior to visit. . No Known Allergies The patient is currently on disability from her breast cancer. 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 Hematological: Negative for adenopathy. BP 132/73 mmHg Pulse 99 Temp(Src) 36.7 ??C (98.1 ??F) (Oral) Resp 18 Ht 170 cm (5' 6.93) Wt 92.761 kg (204 lb 8 oz) BMI 32.10 kg/m2 SpO2 100% Head: Normocephalic, without obvious [...] Normal Review of her laboratory shows normal electrolytes. Bilirubin is 0.43, ALP is 90, creatinine is 0.85. Albumin is 3.1. CBC shows a white count of 5.8, hemoglobin 10.9, hematocrit is 32.1 and platelet count is 331. Absolute neutrophil count 4.18. Assessment/Plan: Kelley is fine today for week-eight treatment. She is again having problems with a herpetic infection, this time on her lip rather than her bottom. Clearly, the chemotherapy is affecting her immunity to this, and I would like to put her on some suppressive medication. She responded well to Famvir but she is without insurance now so we will try to put her on a suppressive dose of acyclovir. She has some chemotherapy-associated anemia, which we will continue to watch. She is not having peripheral neuropathy. She is having some nail changes from her taxane and will be careful with her nail. She does not want to cut it short, although that was discussed. Certainly it would put less pressure on the nail bed if she were to do that. Followup is arranged for next week with a CBC and CMP for week nine of 12 planned treatments. I will be on service next week, so we will be seeing one of my colleagues, and I will see her back in a couple of weeks with lab as well. documented in this encounter Plan of Treatment Upcoming Encounters Date Type Department Care Team (Late st Contact Info) Description 12/04/2024 11:00 AM EDT Office Visit [place] [address] Roddy Olson MD [facility] [place] [address] documented as of this encounter Procedures Procedure Name Priority Date/Time Associated Diagnosis Comments LAB SCAN 07/19/2015 12:00 AM EST documented in this encounter Results * SCAN DOC: LAB (07/19/2015 12:00 AM EST) Scanning Provider MEDIA MGR SCAN EXT O RDR/RSLT documented in this encounter Visit Diagnoses Diagnosis Malignant neoplasm of upper-outer quadrant of left female breast Malignant neoplasm of upper-outer quadrant of female breast documented in this encounter Care Teams Bike Assembler Relationship Specialty Start Date End Date Jewels Sorto APRN PCP - General 05/24/10 01/09/18 documented as of this encounter
--- OUTSIDE RECORDS SUMMARY | 2024-02-04 18:40 | XMS_ITS | Encounter Summary ---
Author Organization [facility] Address [facility] [place] [address] Care Team Providers Care Manager Telemetry Name Role Phone GladwinJewels ca Shruthi BAUM Primary Care Provider [phone] Reason for Visit * Reason Comments On Treatment Visit Encounter Details Date Type Department Care Team (Late st Contact Info) Description 10/12/2015 9:30 AM EDT Office Visit Radiation Oncology at [address] [phone] Maegan Eng MD [facility] [place] [address] Malignant neoplasm of left female breast, unspecified [...] Sign Reading Time Taken Comments Blood Pressure 119/59 10/12/2015 9:00 AM EDT Pulse 80 10/12/2015 9:00 AM EDT Temperature 37 ??C (98.6 ??F) 10/12/2015 9:00 AM EDT Respiratory Rate 16 10/12/2015 9:00 AM EDT Oxygen Saturation 97% 10/12/2015 9:00 AM EDT Inhaled Oxygen Concentration - - Weight 93.4 kg (206 lb) 10/12/2015 9:00 AM EDT Height - - Body Mass Index 32.33 08/16/2015 8:55 AM EST documented in this encounter Progress Notes * Maegan Eng MD - 10/12/2015 10:06 AM EDT DIAGNOSIS: Breast ca, L, IDC, low gr, ER+DC+, [id number]-, s/p lumpectomy & SNB, pT1b pN1a, stage II. S/p adjuvant chemo. CURRENT TREATMENT DOSE: 45 Gy L supraclav, L axilla & L breast ANTICIPATED TOTAL DOSE: 50.4 Gy L supraclav, L axilla & L breast, 60.4 Gy lumpectomy bed L breast Current # of xrt received: 25 L supraclav, L axilla & L breast Anticipated total # of xrt txs: 28 L supraclav, L axilla & L breast, 33 lumpectomy bed L breast Evaluation of port verification films: Approved. For details, see electronic film record in [employer] System. Changes in Medical Condition: Appt 10/27/[address] Baltazar of thickening of lining of womb seen on US. Scratchy throat soothed adequately by baking soda & salt rinse. Itchiness of skin w/in irrad'd area relieved by reyes's cream. Pain?: No. Physical Exam: BP 119/59 mmHg Pulse 80 Temp(Src) 37 ??C (98.6 ??F) Resp 16 Wt 93.441 kg (206 lb) SpO2 97% A&Ox3, in NAD. Mild to moderate erythema/hyperpigmentation w/in irrad'd area; skin intact. Xrays: 09/14/15 plain xrays L humerus, L shoulder & scapula: Neg. Response to xrt: As expected. Irradiation Related Symptoms: Esophagitis. Skin rxn. Treatment for Symptom Control: Baking soda & salt gargle. Reyes's cream. Pain Management: Ibuprofen. Recommendation on Continuing Course of xrt: Cont. documented in this encounter Plan of Treatment Upcoming Encounters Date Type Department Care Team (Late st Contact Info) Description 12/04/2024 11:00 AM EDT Office [place] [address] Roddy Olson MD [facility] [place] [address] documented as of this encounter Visit Diagnoses Diagnosis Malignant neoplasm of left female breast, unspecified site of breast documented in this encounter Care Teams Manager Telemetry Relationship Specialty Start Date End Date Jewels Sorto APRN PCP - General 05/24/10 01/09/18 documented as of this encounter
--- OUTSIDE RECORDS SUMMARY | 2024-02-04 18:40 | XMS_ITS | Encounter Summary ---
Author Organization [facility] [place] [address] Care Team Providers Care Commutator Tester Name Role Phone [place] LakeJewels ca Shruthi BAUM Primary Care Provider [phone] Encounter Details Date Type Department Care Team (Late Contact Info) Description 06/21/2015 Notes Only Hematology Oncology at [address] [phone] Cinthia Costello MSW OFFICE OF CARE MANAGEMENT Social History Tobacco [...] Progress Notes * Cinthia Costello MSW - 06/22/2015 11:20 AM EST Follow up with pt during infusion. She reports she was found eligible for help through [facility]ariasand is waiting for her card. Will continue to follow. documented in this encounter Plan of Treatment Upcoming Encounters Date Type Department Care Team (Late Contact Info) Description 12/04/2024 11:00 AM EDT Office [place] [address] Roddy Olson MD [facility] [place] [address] documented as of this encounter Visit Diagnoses Not on filedocumented in this encounter Care Teams Commutator Tester Relationship Specialty Start Date End Date Jewels Sorto APRN PCP - General 05/24/10 01/09/18 documented as of this encounter
--- OUTSIDE RECORDS SUMMARY | 2024-02-04 18:40 | XMS_ITS | Encounter Summary ---
[facility] Organization [facility] [place] [address] Care Team Providers Care Drupal Programmer Name Role Phone Jewels Sorto APRN Primary Care Provider [phone] Encounter Details Date Type Department Care Team (Late st Contact Info) Description 06/07/2015 Telephone Hematology [place] [address] Annmarie Tolentino, STEAM TENDER [facility] HEMATOLOGY/[place] [address] Social History Tobacco Use Types Packs/Day Years [...] encounter Miscellaneous Notes * Telephone Encounter - Annmarie Tolentino MSW - 06/07/2015 3:22 PM EST Office of Care Management/Continuing Sales Department Clerk Pager #[phone] A: Referral received to assist Ms. Jensen with insurance. She is losing her job and received a severance package w/8 weeks of pay and 8 weeks of coverage. Her earns $11.55/hr. and was told that she could not go on his insurance until October. She cannot afford the $500 COBRA premium. We discussed the [employer] and [employer] programs. Even though she was given 8 weeks of insurance, 07/02/15 would bring a new $2500 deductible. She will discuss with the [facility] ([phone]). In the meantime, I will mail her the [employer] application and [employer] medicaid ap. as well as an NSA for this facility. She will call me if she has questions but I will also f/u on 06/11. P: Continue to assist with psychosocial needs. PAVITHRA Gutierrez, [facility] Comprehensive Breast Program, Head and Neck Oncology documented in this encounter Plan of Treatment Upcoming Encounters Date Type Department Care Team (Late st Contact Info) Description 12/04/2024 11:00 AM EDT Office Visit [place] [address] Roddy Olson MD [facility] [place] [address] documented as of this encounter Visit Diagnoses Not on filedocumented in this encounter Care Teams Drupal Programmer Relationship Specialty Start Date End Date Jewels Sorto APRN PCP - General 05/24/10 01/09/18 documented as of this encounter
--- OUTSIDE RECORDS SUMMARY | 2024-02-04 18:40 | XMS_ITS | Encounter Summary ---
Author Organization [facility] [place] [address] Care Team Providers Care Biological Sciences Professor Name Role Phone Jewels Sorto APRN Primary Care Provider [phone] Reason for Visit * Reason Comments Breast Cancer Encounter Details Date Type Department Care Team (Late st Contact Info) Description 07/12/2015 12:00 PM EST Office Visit Hematology/Oncology at [address] [address] Hector Carey MD [address] [place] [id number] Malignant neoplasm of upper-outer quadrant of left [...] Sign Reading Time Taken Comments Blood Pressure 124/67 07/12/2015 11:43 AM EST Pulse 96 07/12/2015 11:43 AM EST Temperature 36.8 ??C (98.2 ??F) 07/12/2015 11:[address] Respiratory Rate 16 07/12/2015 11:43 AM EST Oxygen Saturation 98% 07/12/2015 11:43 AM EST Inhaled Oxygen Concentration - - Weight 93 kg (205 lb) 07/12/2015 11:43 AM EST Height 170 cm (5' 6.93) 07/12/2015 11:43 AM EST Body Mass Index 32.18 07/12/2015 11:43 AM EST documented in this encounter Progress Notes * Hector Carey MD - 07/12/2015 12:19 PM EST Diagnosis: 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 The tumor was 0.7 cm, low-grade, ER/TX positive, with 1 of 3 sentinel positive nodes. HER-2 was negative. Subjective: Kelley comes in today for week seven of 12 planned weekly Taxol chemotherapies in the adjuvant treatment of her breast cancer. She completed four cycles of dose dense chemotherapy with Adriamycin and Cytoxan previously. She is continuing to do well on the chemotherapy. She did have a birthday over the weekend and notes over 50 people attended. She had a great time. She is not having any neuropathy symptoms, no nail changes, no nausea or vomiting. She has some mild constipation. She also has achiness for a couple of days after treatment but then that resolves. Review of systems is otherwise negative. Past [...] her breast cancer. She works at a [employer] in [place] but will be soon looking for a [...] Neurological: Negative. Hematological: Negative for adenopathy. BP 124/67 mmHg Pulse 96 Temp(Src) 36.8 ??C (98.2 ??F) (Oral) Resp 16 Ht 170 cm (5' 6.93) Wt 92.987 kg (205 lb) BMI 32.18 kg/m2 SpO2 98% Head: Normocephalic, without obvious [...] nodes normal Neurologic: Normal Review of her lab today shows normal electrolytes, a creatinine of 0.75, normal liver tests with an ALP of 84. CBC shows a white count of 5.0, hemoglobin 10.5, hematocrit 30.7, and a platelet count of 321. Assessment/Plan: Kelley is fine today for week seven chemotherapy. We will continue to watch for neuropathy. Her chemotherapy associated anemia is a little worse this week but I suspect she will get by without a transfusion and she is relatively asymptomatic. We will plan on seeing her next week with a port draw CBC and CMP and she will call if there are issues or problems in the interim. No dose adjustments are made to her antiemetics or chemotherapy today. documented in this encounter Plan of Treatment Upcoming Encounters Date Type Department Care Team (Late st Contact Info) Description 12/04/2024 11:00 AM EDT Office [place] [address] Roddy Olson MD [facility] [place] [address] documented as of this encounter Procedures Procedure Name Priority Date/Time Associated Diagnosis Comments LAB SCAN 07/12/2015 12:00 AM EST documented in this encounter Results * SCAN DOC: LAB (07/12/2015 12:00 AM EST) Scanning Provider MEDIA MGR SCAN EXT O RDR/RSLT documented in this encounter Visit Diagnoses Diagnosis Malignant neoplasm of upper-outer quadrant of left female breast Malignant neoplasm of upper-outer quadrant of female breast documented in this encounter Care Teams Biological Sciences Professor Relationship Specialty Start Date End Date Jewels Sorto APRN PCP - General 05/24/10 01/09/18 documented as of this encounter
--- OUTSIDE RECORDS SUMMARY | 2024-02-04 18:40 | XMS_ITS | Encounter Summary ---
Author Organization [facility] Address [facility] [place] [address] Care Team Providers Care Supervisor Shrimp Pond Name Role Phone LacledeJewels ca Shruthi BAUM Primary Care Provider [phone] Reason for Visit * Reason Comments On Treatment Visit Encounter Details Date Type Department Care Team (Late st Contact Info) Description 09/07/2015 9:30 AM EST Office Visit Radiation Oncology at [address] [address] Maegan Eng MD [facility] [place] [address] Malignant neoplasm of left female breast, unspecified [...] Sign Reading Time Taken Comments Blood Pressure 144/72 09/07/2015 9:00 AM EST Pulse 91 09/07/2015 9:00 AM EST Temperature 36.8 ??C (98.2 ??F) 09/07/2015 9:00 AM ES T Respiratory Rate 16 09/07/2015 9:00 AM EST Oxygen Saturation 98% 09/07/2015 9:00 AM EST Inhaled Oxygen Concentration - - Weight - - Height - - Body Mass Index - - documented in this encounter Progress Notes * Maegan Eng MD - 09/07/2015 9:37 AM EST DIAGNOSIS: Breast ca, L, IDC, low gr, ER+ME+, Onr5uon-, s/p lumpectomy & SNB, pT1b pN1a, stage II. S/p adjuvant chemo. CURRENT TREATMENT DOSE: 3.6 Gy L supraclav, L axilla & L breast ANTICIPATED TOTAL DOSE: 50.4 Gy L supraclav, L axilla & L breast, 60.4 Gy lumpectomy bed L breast Current # of xrt received: 2 Anticipated total # of xrt txs: 28 L supraclav, L axilla & L breast, 33 lumpectomy bed L breast Evaluation of port verification films: Approved. For details, see electronic film record in [employer]. Changes in Medical Condition: None. Has reyes's cream & knows not to apply it w/in 2 hrs prior to xrt. Pain?: No. Physical Exam: BP 144/72 mmHg Pulse 91 Temp(Src) 36.8 ??C (98.2 ??F) Resp 16 SpO2 98% A&Ox3, in NAD. L breast, supraclav & axilla w/o erythema. Response to xrt: As expected. Irradiation Related Symptoms: None. Treatment for Symptom Control: Reyes's cream. Pain Management: Not needed. Recommendation on Continuing Course of xrt: Cont. documented in this encounter Plan of Treatment Upcoming Encounters Date Type Department Care Team (Late st Contact Info) Description 12/04/2024 11:00 AM EDT Office Visit [place] [phone] Roddy Olson MD [facility] [place] [address] documented as of this encounter Visit Diagnoses Diagnosis Malignant neoplasm of left female breast, unspecified site of breast documented in this encounter Care Teams Supervisor Shrimp Pond Relationship Specialty Start Date End Date Jewels Sorto APRN PCP - General 05/24/10 01/09/18 documented as of this encounter
--- OUTSIDE RECORDS SUMMARY | 2024-02-04 18:40 | XMS_ITS | Encounter Summary ---
Author Organization [facility] Address [facility] [place] [address] Care Team Providers Care Transfer Pumper Name Role Phone Jewels Sorto APRN Primary Care Provider [phone] Encounter Details Date Type Department Care Team (Late st Contact Info) Description 11/04/2015 Telephone [place] [address] Meghan Baltazar MD [facility] [place] [address] Social History Tobacco Use Types Packs/Day Years [...] Telephone Encounter - Meghan Baltazar MD - 11/04/2015 3:08 PM EDT Relayed results. Discussed option of proceeding directly to hysterectomy versus interval D&C. Patient prefers proceeding directly to hysterectomy and I given the highly atypical nature of the biopsy that this is reasonable. We'll plan for a preoperative appointment in the office followed by robotic hysterectomy with frozen section and possible staging DIAGNOSIS Endometrial biopsy: Small fragment of highly atypical epithelium suspicious for carcinoma intermixed with ??atrophic endometrium and cervical mucus. (see Discussion) CR-0 11/01/15 documented in this encounter Plan of Treatment Upcoming Encounters Date Type Department Care Team (Late st Contact Info) Description 12/04/2024 11:00 AM EDT Office Visit [place] [address] Roddy Olson MD [facility] [place] [address] documented as of this encounter Visit Diagnoses Not on filedocumented in this encounter Care Teams Transfer Pumper Relationship Specialty Start Date End Date Jewels Sorto APRN PCP - General 05/24/10 01/09/18 documented as of this encounter
--- OUTSIDE RECORDS SUMMARY | 2024-02-04 18:40 | XMS_ITS | Encounter Summary ---
Author Organization [facility] Address [facility] [address] Care Team Providers Care Fan Blade Truer Name Role Phone Jewels Sorto APRN Primary Care Provider [phone] Reason for Visit * Reason Comments Chemotherapy * Treatment/Therapy Plan Authorization (Routine) - Closed Specialty Diagnoses / Procedures Referred By Contac t Referred To Contact Hematology and Oncology Diagnoses Malignant neoplasm of unspecified site of left female breast Procedures TC PACLITAXEL, 1MG, INJ Hector Carey MD [address] [place] [id number] Hector Carey MD [address] [place] [id number] Referral ID Status Reason Start Date Expiration Date Visits Re quested Visits Authorized [id number] Closed 08/18/2015 08/17/2016 24 24 Encounter Details Date Type Department Care Team (Late st Contact Info) Description 08/16/2015 9:30 AM EST Infusion Hematology Oncology at [address] [address] Malignant neoplasm of central portion [...] as of this encounter Progress Notes * Enrrqiue Carlos RN - 08/16/2015 12:12 PM EST INFUSION THERAPY ADMINISTRATION NOTES DIAGNOSIS: Breast CA CYCLE #: Cycle 4 Day 15 REASON FOR VISIT: SUBJECTIVE Kelley offers no complaints. OBJECTIVE LAB DATA: Plt 288; ANC 2.61; Creat 0.76; BUN 13 IV ACCESS: R chest port Pre administration: Chemotherapy orders independently verified for drug name, route, and dosage per patient's height, weight and BSA by RN Radha sheppard and DARCY Cabrera. REACTIONS (DESCRIPTION, TIME, INTERVENTION AND EFFECTIVENESS) none ASSESSMENT Kelley was awake, alert and tolerated treatment well. PLAN Return to clinic per routine. documented in this encounter Plan of Treatment Upcoming Encounters Date Type Department Care Team (Late st Contact Info) Description 12/04/2024 11:00 AM EDT Office Visit [place] [address] Roddy Olson MD [facility] [place] [address] documented as of this encounter Visit Diagnoses Diagnosis Malignant neoplasm of central portion of left female breast Malignant neoplasm of central portion of female breast documented in this encounter Administered Medications Inactive Administered Medications - up to 3 most recent administrations Medication Order MAR Action Action Date Dose Rate Site dexamethasone (DECADRON) injection 10 mg 10 mg, Intravenous, ONCE, 1 dose, On Sun08/16/15 at 1100, Administer 30 minutes prior to PACLitaxel Given 08/16/2015 11:05 AM EST 10 mg diphenhydrAMINE (BENADRYL) injection 25 mg 25 mg, Intravenous, ONCE, 1 dose, On Sun08/16/15 at 1100, Administer 30 minutes prior to PACLitaxel, Routine Given 08/16/2015 11:00 AM EST 25 mg famotidine (PEPCID) injection 20 mg 20 mg, Intravenous, ONCE, 1 dose, On Sun08/16/15 at 1100, Administer 30 minutes prior to PACLitaxel Given 08/16/2015 11:03 AM EST 20 mg heparin, porcine 100 unit/mL flush 500 Units 500 Units, Intravenous, ONCE PRN, Starting on Sun08/16/15 at 1039, Until Sun08/16/15 at 1452, Line Care, Refer to Intravenous (IV) Procedure: Accessing Implanted Vascular Access Devices (654) procedure and/or Intravenous (IV) Job Aid: Adult Flushing & Catheter Care (1391) job aid for additional information regarding guidelines and administration., Routine Given 08/16/2015 12:50 PM EST 500 Units PACLitaxel (TAXOL) 166 mg in dextrose 5% Non-PVC 277.6667 mL chemo infusion 166 mg (rounded from 165.6 mg = 80 mg/m2/dose ? 2.07 m2 Treatment Plan BSA from Recorded weight), Intravenous, ONCE, 1 dose, On Sun08/16/15 at 1145, Administer over 60 Minutes New Bag 08/16/2015 11:36 AM EST 166 mg 278 mL/hr palonosetron (ALOXI) injection 0.25 mg 0.25 mg, Intravenous, ONCE, 1 dose, On Sun08/16/15 at 1100, Routine Given 08/16/2015 10:58 AM EST 0.25 mg sodium chloride 0.9 % flush 5-20 mL 5-20 mL, Intravenous, EVERY 1 MIN PRN, Starting on Sun08/16/15 at 1039, Until Sun08/16/15 at 1452, Line Care, Flush pertains to all indwelling lines. Flush per protocol found in the job aid using the link provided on this medication record. Refer to Intravenous (IV) Job Aid: Adult Flushing & Catheter Care (8190) job aid for additional information regarding guidelines and administration., Routine Given 08/16/2015 12:50 PM EST 20 mLs documented in this encounter Care Teams Fan Blade Truer Relationship Specialty Start Date End Date Jewels Sorto APRN PCP - General 05/24/10 01/09/18 documented as of this encounter
--- OUTSIDE RECORDS SUMMARY | 2024-02-04 18:40 | XMS_ITS | Encounter Summary ---
Author Organization [facility] Address [facility] [place] [address] Care Team Providers Care Cut Off Saw Tender Metal Name Role Phone NoreenLatishaandreas Hawkins APRN Primary Care Provider [phone] Reason for Visit * Auth/Cert Specialty Diagnoses [...] Expiration Date Visits Re quested Visits Authorized [id number] 1 1 Encounter Details Date Type Department Care Team (Late st Contact Info) Description 11/16/2015 10:58 AM EDT - 11/16/2015 2:26 PM EDT Surgery [place] [id number] Tom Baltazar MD [facility] [place] [address] ROBOTIC LAPAROSCOPY, HYSTERECTOMY, UTERUS<250GM (WRVU 13.36) Social History Tobacco Use Types Packs/Day Years [...] Sign Reading Time Taken Comments Blood Pressure 92/75 11/16/2015 2:24 PM EDT Pulse 77 11/16/2015 2:24 PM EDT Temperature 36.6 ??C (97.9 ??F) 11/16/2015 2:24 PM ED T Respiratory Rate 20 11/16/2015 2:24 PM EDT Oxygen Saturation 93% 11/16/2015 2:24 PM EDT Inhaled Oxygen Concentration - - Weight 93 kg (205 lb) 11/16/2015 10:02 AM EDT Height - - Body Mass Index 34.12 11/16/2015 5:09 PM EDT documented in this encounter Discharge Summaries * Solange Bella PA - 11/17/2015 11:13 AM EDT Images from the original note were not included. Discharge Summary Patient Name: Kelley Jensen Patient Age: 60 y.o. Language: Indonesian Race: White Ethnicity: Not nor Admit date: 11/16/2015 Discharge date and time: 11/17/2015 Attending Physician: Tom Baltazar MD Discharge Physician: Tom Baltazar MD Follow-up Recommendations for Providers: -Dr. Baltazar 12/08/15 Inpatient Provider Contact Information: Dr Baltazar -- [facility] Gynecologic Oncology -- 3K -- Discharge [...] malignancy ? on gross inspection and 2 technical sales representatives sections. Pending Studies and Lab Data: Final [...] PATIENT DISCHARGE INSTRUCTIONS Gynecology Oncology phone number: [phone] Call your doctor if you develop: --A [...] 11/22/2015 12:30 PM Hector Carey MD Hematology/Oncology [phone] 12/06/2015 3:30 PM Maegan Eng MD [facility] Radiation Oncology [phone] 12/08/2015 2:30 PM Tom Baltazar MD Gynecologic Oncology [phone] 12/16/2015 11:10 AM [employer] ROOM 2 [facility] [phone] Please go to Care Trainer Area 3L ([place] Location). 12/16/2015 1:00 PM Shiloh Cruz MD [facility] [phone] Discharge References/Attachments None Provider Contact Information: JEWELS CRAMER, BAUTISTA [phone] documented in this encounter Discharge Instructions * Patient Instructions* Solange Bella PA - 11/16/2015 11:08 AM EDT Images from the original note were not included. PATIENT DISCHARGE INSTRUCTIONS Gynecology Oncology phone number: [phone] Call your doctor if you develop: --A [...] mouth daily. 07/22/2018 prochlorperazine (COMPAZINE) 10 mg TabletIndications:Breas t cancer, female, unspecified laterality Take 1 [...] the floor via wheelchair, accompanied by the STERILE TECH. * Tom Baltazar MD - 11/17/2015 7:22 [...] of malignancy on gross inspection and 2 technical sales representatives sections Final Pathology Pending Assessment and Plan [...] them as documented. Tom Baltazar MD * Wintershania Rebeka A - 11/16/2015 9:30 PM EDT Gynecology Oncology [...] of malignancy on gross inspection and 2 technical sales representatives sections Final Pathology Pending Assessment and Plan [...] POD# 1. Code Status: Full Code REBEKA BYRD MD PGY3 11/17/2015 * Josephine Celeste RN [...] toward right side. Lap sites x 5 CLERICAL DENTIST ASSISTANT,CDI. Small wound noted above right pubis previously documented on arrival to [facility] by LYNN RN. Patient states she has seen PCP regarding wound and they recommended bacitracin. Plan to place wound care c onsult on transfer to [facility]. VSS. Will monitor. 1655 Report to Josephine TAVERAS. Info/orders reviewed, questions answered. Patient ready for transfer to [facility]. documented in this encounter H&P Notes * Tom Baltazar MD - 11/16/2015 10:41 AM EDT Sports Teacher Inpatient Admission Interval Note I have reviewed [...] Ongoing (Interventions Implemented as Appropriate) 11/16/15 2100 11/17/15 02211/17/15 030 Musculoskeletal Interventions Activity/Level of Assistance -- up [...] Baltazar MD - 11/16/2015 2:04 PM EDT [facility] Operative Note Patient Name: Kelley Jensen : [id number] MR#: [id number] Case Date: 11/16/2015 Surgeon: Surgeon(s) and Role: [...] into the substance of the cervix. A Loctronix uterine manipulator was placed. An 8-mm transverse incision was made at the umbilicus, through which a Veress needle was inserted and the abdomen was insufflated to tympany with carbon dioxide gas. An 8mm trocar was then inserted and the camera was placed, verifying a successful atraumatic entry. 3 additional 8-mm trocars and a 12-mm right upper quadrant assistant community director port were placed in the usual locations [...] surgical instrument counts were performed as per [facility] OR policy. Complications: None. Antibiotics: 2 gm [...] Operative Note Patient Name: Kelley Jensen : [id number] MR#: [id number] Case Date: 11/16/2015 Surgeon: Surgeon(s) and Role: [...] AM EDT Office Visit [place] [address] Roddy Olson MD [facility] [place] [address] documented as of this encounter Procedures Procedure [...] TO PATHOLOGY Routine 11/16/2015 12:29 PM EDT NON-EPIC AMBULATORY ANALYSTS FINAL REPORT Routine 11/16/2015 12:15 PM EDT [...] PM EDT 11/16/2015 1:58 PM EDT Narrative [facility] - 11/16/2015 1:58 PM EDT Specimen requisition ordered. ??Separate Pathology report to follow Tom Baltazar MD PATHOLOGY/CYTOLOGY O BRENDA [facility] [place] [address] * Specimen to Pathology (surgical or derm) (11/16/2015 1:40 PM EDT) AP Specimen 11/16/2015 1:40 PM EDT 11/16/2015 1:40 PM EDT Narrative [facility] - 11/16/2015 1:40 PM EDT Specimen requisition ordered. ??Separate Pathology report to follow Tom Baltazar MD PATHOLOGY/CYTOLOGY Tyree GUTIERREZ Performing Organization Address City/State/[facility] [place] [address] * Surgical Pathology Report (11/16/2015 1:00 PM EDT) Surgical Pathology Report [id number] ? Location: OR; OR09; A The signing pathologist has (i) examined the relevant preparation(s) for the specimen(s) and (ii) rendered or confirmed the diagnosis(es). . ?Frozen Section FROZEN SECTION DIAGNOSIS AFS - Uterus, bilateral fallopian tubes and ovaries: ?Myomatous polyp; no definite evidence of malignancy ?on gross inspection and 2 technical sales representatives sections. - JLG 11/16/15 13:55 11/16/15 ??Verified by: ??Itz NAGY, Jimmie Craft, Pathologist The attending pathologist whose electronic signature appears on this report has reviewed all diagnostic slides in rendering the frozen section diagnosis. This intraoperative consultation should be interpreted as a preliminary diagnosis pending review of the entire specimen and special studies, if any. [facility] 11/16/2015 1:00 PM EDT Tom Baltazar MD PATHOLOGY/CYTOLOGY O RDERABLES Performing Organization Address City/[facility]/ZIP Co de Phone Number [facility] [place] [address] * Specimen to Pathology (surgical or derm) (11/16/2015 1:00 PM EDT) AP Specimen 11/16/2015 1:00 PM EDT 11/16/2015 1:00 PM EDT Narrative [facility] - 11/16/2015 1:00 PM EDT Specimen requisition ordered. ??Separate Pathology report to follow Tom Baltazar MD PATHOLOGY/CYTOLOGY O RDERABLES Performing Organization Address [facility] Co de Phone Number [facility] [place] [address] * Surgical Pathology Report (11/16/2015 12:29 PM EDT) Final Diagnosis ? Location: [facility]; The signing pathologist has (i) examined the [...] enough material present in the previous biopsy ([id number]) to perform mismatch repair immunohistochemist ry. ADDITIONAL STUDIES Whole slide scan: [id number] CLINICAL INFORMATION Specimen Submitted: A - [...] of malignancy ?on gross inspection and 2 technical sales representatives sections. - JLG . FROZEN SECTION DIAGNOSIS 11/16/15 13:55 11/16/15 ??Verified by: ??Itz NAGY, Jimmie Craft, Pathologist The attending pathologist whose electronic signature appears on this report has reviewed all diagnostic slides in rendering the frozen section diagnosis. This intraoperative consultation should be interpreted as a preliminary diagnosis pending review of the entire specimen and special studies, if any. 11/19/2015 1:04 PM EDT [facility] LYMPH NODE SPECIMEN / Unknown 11/16/2015 12:29 PM EDT 11/16/2015 12:29 PM EDT LYMPH NODE SPECIMEN / Unknown 11/16/2015 12:29 PM EDT 11/16/2015 12:29 PM EDT LYMPH NODE SPECIMEN / Unknown 11/16/2015 12:29 PM EDT 11/16/2015 12:29 PM EDT LYMPH NODE SPECIMEN / Unknown 11/16/2015 12:29 PM EDT 11/16/2015 12:29 PM EDT Tom Baltazar MD PATHOLOGY/CYTOLOGY O BRENDA Performing Organization Address [facility] Co de Phone Number [facility] [place] [address] * Specimen to Pathology (surgical or derm) (11/16/2015 12:29 PM EDT) AP Specimen 11/16/2015 12:2 9 PM EDT 11/16/2015 12:29 PM EDT Narrative [facility] - 11/16/2015 12:29 PM EDT Specimen requisition ordered. ??Separate Pathology report to follow Tom Baltazar MD PATHOLOGY/CYTOLOGY O BRENDA Performing Organization Address [facility] Co de Phone Number [facility] [place] [address] * Non-Portfolio Administrator Final Report (11/16/2015 12:15 PM EDT) Diagnosis Discussion [id number] ? Location: [facility]; SS14; A The signing pathologist has (i) examined the relevant preparation(s) for the specimen(s) and (ii) rendered or confirmed the diagnosis(es). . ? Non-Portfolio Administrator Final DIAGNOSIS Negative for Malignancy 11/17/15 ?Screened by: ? SLA ?Rescreened by: ?? EJShruthi 11/17/15 ?Verified by: ? [place] NAGY, Krzysztof [...] Cell Block 1. 11/17/2015 2:38 PM EDT [facility] Pelvic Washing 11/16/2015 12 :15 PM EDT 11/16/2015 12:15 PM EDT Tom Baltazar MD PATHOLOGY/CYTOLOGY O RDERABLES [facility] [place] [address] * Cytopathology Non-Gynecological (11/16/2015 12:15 PM EDT) AP Specimen 11/16/2015 12:1 5 PM EDT 11/16/2015 12:15 PM EDT Narrative [facility] - 11/16/2015 12:15 PM EDT Specimen requisition ordered. ??Separate Pathology report to follow Tom Baltazar MD PATHOLOGY/CYTOLOGY O BRENDA [facility] [place] [address] documented in this encounter Visit Diagnoses Not on filedocumented in this encounter Admitting Diagnoses Diagnosis Abnormal [...] Given 11/16/2015 11:25 PM EDT 650 mg BUpivacaine (PF) (MARCAINE) 0.5 % (5 mg/mL) injection ONCE PRN, Starting on Sun11/16/15 at 1156, Until Sun11/17/15 at 1422, Intra-Operative (Intra-Procedure), Routine Given 11/16/2015 11:56 AM EDT 5 mLs citalopram (CeleXA) tablet 20 mg 20 mg, [...] Elvia Webster RN)1148 (Given - Provider: Josephine Celeste RN) ceFAZolin (ANCEF) 2g in dextrose 5% 50 [...] Webster RN) 08 (Given - Provider: Josephine Celeste RN) heparin (porcine) subcutaneous injection 5,000 Units (COMPLETED) 5,000 Units, Subcutaneous, ONCE, 1 dose, On Sun11/16/15 at 1030, Day of Surgery (Day of Procedure), Routine 1113 (Given - Provider: Dakota Varma CRNA - Comment: L shoulder; by SUN.) ibuprofen (ADVIL;MOTRIN) tablet 600 mg(Linked Group 1) 600 mg, Oral, EVERY 6 HOURS SCHEDULED, First dose on Sun11/18/15 at 0200, Until Discontinued, - Begin after ketorolac discontinued. , Routine ketorolac (TORADOL) injection 15 mg(Linked Group 1) 15 mg, Intravenous, EVERY 6 HOURS, 5 doses, First dose on Sun11/16/15 at 2000, Last dose on Sun11/17/15 at 2000, Routine 2058 (Given - Provider: Elvia Webster RN) 030 (Given - Provider: Elvia Webster RN)08 (Given - Provider: Josephine Celeste RN) levothyroxine (SYNTHROID) tablet 25 mcg 25 mcg, Oral, EVERY MORNING, First dose on Sun11/17/15 at 0600, Until Discontinued, Routine 06 (Given - Provid er: Elvia Webster RN) senna-docusate (PERICOLACE) 8.6-50 mg per tablet 2 tablet 2 tablet, Oral, 2 TIMES DAILY, First dose on Sun11/16/15 at 2100, Until Discontinued, Routine 2058 (Given - Provider: Elvia Webster RN) 08 (Given - Provider: Josephine Celeste RN) sodium chloride 0.9 % flush 5 mL 5 mL, Intravenous, 2 TIMES DAILY, First dose on Sun11/16/15 at 2100, Until Discontinued, Routine 2104 (Given - Provider: Elvia Webster RN) 0900 (Not Given - Provider: Josephine Celeste RN - Reason: See comment - Comment: IV fluids infusing) Continuous Medication Order 11/15/2015 11/16/2015 11/17/2015 lactated ringers infusion 1,000 mL (CANCELED) 1,000 mL, at 100 mL/hr, Intravenous, CONTINUOUS, Starting on Sun11/16/15 at 1030, Until Sun11/16/15 at 1707, Day of Surgery (Day of Procedure) 1445 (Continued Bag - Provid er: Jose Dumont RN - Comment: bag from anesthesia) lactated ringers infusion 1,000 mL 1,000 mL, at 100 mL/hr, Intravenous, CONTINUOUS, Starting on Sun11/16/15 at 1500, Until Sun11/17/15 at 1422 1441 (New Bag - Provider: Jose Dumont RN)2350 (New Bag - Provider: Elvia Webster [...] Josephine Celeste, DARCY)2327 (Given - Provider: Elvia Webster RN) 0453 (Given - Provider: Elvia Webster RN)1148 (Given - Provider: Josephine Celeste, DARCY) polyethylene glycol (MIRALAX) packet 17 g 17 g, Oral, DAILY PRN, Starting on 5/17/16 at 1708, Until Sun11/17/15 at 1422, Constipation, [...] at 2000, Last dose on Sun11/17/15 at 1999, Routine Followed by ibuprofen (ADVIL;MOTRIN) tablet 600 mgJump to med 600 mg, Oral, EVERY 6 HOURS SCHEDULED, First dose on Jayshree 11/18/15 at 0200, Until Discontinued, - Begin after ketorolac discontinued. , Routine documented in this encounter Care Teams Cut Off Saw Tender Metal Relationship Specialty Start Date End Date Jewels Cramer APRN PCP - General 05/24/10 01/09/18 documented as of this encounter
--- OUTSIDE RECORDS SUMMARY | 2024-02-04 18:40 | XMS_ITS | Encounter Summary ---
Author Organization [facility] Address [facility] [place] [address] Care Team Providers Care Relations Mgr Name Role Phone PenningtonJewels ca Shruthi BAUM Primary Care Provider [phone] Reason for Visit * Reason Comments Radiation Treatment Encounter Details Date Type Department Care Team (Late st Contact Info) Description 09/28/2015 9:30 AM EDT Office Visit Radiation Oncology at [address] [address] Maegan Eng MD [facility] [place] [address] Anxiety; Malignant neoplasm of left female breast, unspecified [...] Sign Reading Time Taken Comments Blood Pressure 120/74 09/28/2015 9:00 AM EDT Pulse 84 09/28/2015 9:00 AM EDT Temperature 36.8 ??C (98.2 ??F) 09/28/2015 9:00 AM ED T Respiratory Rate 18 09/28/2015 9:00 AM EDT Oxygen Saturation 95% 09/28/2015 9:00 AM EDT Inhaled Oxygen Concentration - - Weight 95.1 kg (209 lb 9.6 oz) 09/28/2015 9:00 A M EDT Height - - Body Mass Index 32.9 08/16/2015 8:55 AM EST documented in this encounter Patient Instructions * Patient Instructions* Maegan Eng MD - 09/28/2015 10:08 AM EDT Your scratchy throat is probably from the radiotherapy. Mix 1 teaspoon salt + 1 teaspoon baking soda + 1 qt lukewarm water & gargle with it 3 times daily. Let me know if the salt & soda gargle does not provide enough relief & I can prescribe a medicated gargle/solution. documented in this encounter Progress Notes * Maegan Eng MD - 09/28/2015 10:00 AM EDT DIAGNOSIS: Breast ca, L, IDC, low gr, ER+GA+, Fhy0had-, s/p lumpectomy & SNB, pT1b pN1a, stage II. S/p adjuvant chemo. CURRENT TREATMENT DOSE: 27 Gy L supraclav, L axilla & L breast ANTICIPATED TOTAL DOSE: 50.4 Gy L supraclav, L axilla & L breast, 60.4 Gy lumpectomy bed L breast Current # of xrt received: 15 Anticipated total # of xrt txs: 28 L supraclav, L axilla & L breast, 33 lumpectomy bed L breast Evaluation of port verification films: Approved. For details, see electronic film record in [employer] [facility]. Changes in Medical Condition: L shoulder blade/shoulder pain prevented by taking 800 mg ibuprofen 1hr prior to xrt. She did not take the ibuprofen today & has not noted any pain. She woke up yesterday AM w/dyspnea & then paced x 5 hrs prior to asking to take her to ER, where ekg & labs were wnl & she was dx'd w/dry mouth, insomnia & anxiety & lorazepam 0.5 mg TID,#6 rx'd & she has not had further episode. She asks for refill of lorazepam. Skin w/in irrad'd area ok. Mild scratchiness of throat. Pain?: See above. Physical Exam: BP 120/74 mmHg Pulse 84 Temp(Src) 36.8 ??C (98.2 ??F) (Oral) Resp 18 Wt 95.074 kg (209 lb 9.6 oz) SpO2 95% A&Ox3, in NAD. Mild erythema w/in irrad'd area. Xrays: 09/14/15 plain xrays L humerus, L shoulder & scapula: Neg. Response to xrt: As expected. Irradiation Related Symptoms: Esophagitis. Skin rxn. Treatment for Symptom Control: Baking soda & salt gargle rec'd - given rx. Reyes's cream. Pain Management: Ibuprofen. Recommendation on Continuing Course of xrt: Cont. Refill of lorazepam. documented in this encounter Plan of Treatment Upcoming Encounters Date Type Department Care Team (Late st Contact Info) Description 12/04/2024 11:00 AM EDT Office Visit [place] [address] Roddy Olson MD [facility] [place] [address] documented as of this encounter Visit Diagnoses Diagnosis Anxiety Anxiety state, unspecified Malignant neoplasm of left female breast, unspecified site of breast documented in this encounter Care Teams Relations Mgr Relationship Specialty Start Date End Date Jewels Sorto APRN PCP - General 05/24/10 01/09/18 documented as of this encounter
--- OUTSIDE RECORDS SUMMARY | 2024-02-04 18:40 | XMS_ITS | Encounter Summary ---
Author Organization Formerly [facility], [facility] Address [facility] [place] [address] Care Team Providers Care Oil Filters Inspector Name Role Phone JuniataJewels ca Shruthi BAUM Primary Care Provider [phone] Reason for Visit * Reason Comments Follow-up Pre-op Exam Encounter Details Date Type Department Care Team (Late st Contact Info) Description 11/10/2015 2:30 PM EDT Office Visit [place] [address] Meghan Baltazar MD [facility] [place] [address] Abnormal ultrasound of endometrium Social History Tobacco Use Types Packs/Day Years [...] Reading Time Taken Comments Blood Pressure 126/70 11/10/2015 2:42 PM EDT Pulse 73 11/10/2015 2:42 PM EDT Temperature 36.4 ??C (97.5 ??F) 11/10/2015 2:42 PM ED T Respiratory Rate 20 11/10/2015 2:42 PM EDT Oxygen Saturation 97% 11/10/2015 2:42 PM EDT Inhaled Oxygen Concentration - - Weight 92.9 kg (204 lb 12.9 oz) 11/10/2015 2:42 PM EDT Height 168.8 cm (5' 6.46) 11/10/2015 2:42 PM ED T Body Mass Index 32.6 11/10/2015 2:42 PM EDT documented in this encounter Progress Notes * Rios Verduzco MD - 11/10/2015 2:54 PM EDT Division of Gynecologic Oncology Lily Underwood MD [facility] Meghan Baltazar MD [facility] [place] [address] Preoperative Assessment: Reason for visit/ History of present illness [...] preoperative visit. No interval changes in health. Review of Systems Negative except as above in HPI Medical History: Patient Active Problem List Diagnosis Code ??? Dietary counseling and surveillance Z71.3 ??? Malignant neoplasm of upper-outer quadrant of left female breast C50.412 ??? Abnormal ultrasound of endometrium R93.5 ??? Obesity E66.9 Surgical History: Past Surgical History Procedure Laterality Date ??? Pro excise breast les w xray marker Left 02/16/2015 EXCISION LESION, BREAST W/ PREOP.MARKER (NEEDLE LOC.) performed by Shiloh Cruz MD at [facility] ??? Pro bx/remv, lymph node, deep axill Left 02/16/2015 BIOPSY OR EXCISION OF LYMPH NODE(S), OPEN, DEEP AXILLARY NODE(S) performed by Shiloh Cruz MD at [facility] ??? Pro identify sentinel node Left 02/16/2015 SENTINEL NODE INJECTION performed by Shiloh Cruz MD at [facility] ??? Left 02/16/2015 MODIFIER WITH NEEDLE LOC. performed by Shiloh Cruz MD at [facility] ??? Left 02/16/2015 MODIFIER SENTINEL NODE EXCISION performed by Shiloh Cruz MD at [facility] Medications: Current Outpatient Prescriptions Medication Sig Dispense Refill ??? loratadine (CLARITIN) 10 mg Tablet Take 10 mg by mouth daily. ??? citalopram (CELEXA) 20 mg Tablet Take 1 tablet by mouth daily. 60 tablet 6 ??? ipratropium-albuterol (COMBIVENT RESPIMAT) 20-100 mcg/actuation Mist Inhale 1 puff into the lungs every 6 hours as needed for Wheezing. ??? EMOLLIENT BASE (CREAM BASE TOP) Apply [...] 40 mg by mouth nightly. 0 ??? acetaminophen (TYLENOL) 650 mg Tablet Sustained Release Take 650 mg by mouth every 8 hours as needed for Pain. Do not exceed 6 tabs in 24 hours No current facility-administered medications for this visit. Allergies: No Known Allergies Family History: Family History Negative family history of: Breast Cancer, Ovarian Cancer Social History: Kelley reports that she quit smoking about 8 months ago. Her smoking use included Cigarettes. She has a 30 pack-year smoking history. She has never used smokeless tobacco. She reports that she does not drink alcohol or use illicit drugs. Physical Exam: Filed Vitals: 11/10/15 1442 BP: 126/70 Pulse: 73 Temp: 36.4 ??C (97.5 ??F) TempSrc: Temporal Resp: 20 Height: 168.8 cm (5' 6.46) Weight: 92.9 kg (204 lb 12.9 oz) SpO2: 97% Body mass index is 32.6 kg/(m^2). Body surface area is 2.09 meters squared. Physical Exam General: Pleasant, well developed female. Skin: Warm and well-perfused. No rashes. CV: Normal rate, regular rhythm, normal S1 and S2. No murmurs / rubs / gallops. Resp: Clear to auscultation bilaterally. No wheezes or crackles. Abdomen: No masses or hepatosplenomegaly, soft, nontender, nondistended. Pelvic: Deferred to OR. Extremities: No calf tenderness or lower extremity edema. Neuro: CNII - XII grossly intact. Impression/Plan: Kelley Jensen is a 60 y.o. female with a PMH significant for left sided breast cancer, with a biopsy highly suspicious for endometrial cancer on pathology. We had previously discussed options for management, including dilation and curettage to confirm tissue diagnosis versus proceeding to hysterectomy given high suspicion for carcinoma on biopsy, and patient was leaning toward the latter. These options were reviewed today, and patient wishes to proceed with hysterectomy. We discussed surgical approach today, specifically a robotic-assisted hysterectomy and bilateral salpingoophorectomy. We discussed the rationale for oophorectomy for risk reduction in the setting of breast cancer and given her postmenopausal age. We also discussed possible approaches to lymphadenectomy in this patient, where were are unsure of definitive diagnosis of cancer, including sentinel lymphadenectomy and frozen section with possible completion of pelvic and paraaortic lymphadenectomy as indicated, versus deferring sentinel lymphadenectomy and proceeding only with frozen section with lymphadenectomy as indicated. We discussed 5-10% risk of lymphedema developing with bilateral pelviclymphadenectomy. Patient prefers the former approach to lymphadenectomy; that is, initiating surgery with sentinel lymphadenectomy. We reviewed the natural course of endometrial cancer with the patient and the role that surgery plays in determining the stage of the cancer and its subsequent treatment after surgery if indicated bythe stage. We reassured Kelley Jensen that in the majority of endometrial cancer cases, they are diagnosed early and that the intent of therapy is curative. We reviewed the surgical approach, need for general anesthesia, and the expected postoperative recovery. The patient was informed that patients undergoing this procedure typically are safe to go homethe day after surgery. Additionally, we discussed the risks of the procedure including infection, bleeding, chronic leg swelling (lymphedema), DVT/PE, , damage to pelvic or abdominal structures s uch as the bowel, bladder, ureters, blood vessels, nerves, and the possibility of needing to convert to an open surgery. All of Kelley Jensen's questions were answered to her satisfaction and she verbalized understanding of the plan of care. Surgical consent was obtained, bowel preparation reviewed and surgery is scheduled for 11/16/15. Surgical approach: robotic assisted total laparoscopic hysterectomy, bilateral salpingo-oophorectomy, and sentinel lymphadenectomy. Will plan for frozen section with possible complete pelvic and para-aortic lymphadenectomy as indicated. Patient was seen and discussed with Dr Baltazar, attending gynecologic oncologist, with whom the care plan was formulated. RIOS VERDUZCO MD, PGY4 11/10/2015 I have seen and examined the patient [...] AM EDT Office [place] [phone] Roddy Olson MD [facility] [place] [address] documented as of this encounter Visit Diagnoses Diagnosis Abnormal ultrasound of endometrium Nonspecific (abnormal) findings on radiological and other examination of genitourinary organs documented in this encounter Care Teams Oil Filters Inspector Relationship Specialty Start Date End Date Jewels Sorto APRN PCP - General 05/24/10 01/09/18 documented as of this encounter
--- OUTSIDE RECORDS SUMMARY | 2024-02-04 18:40 | XMS_ITS | Encounter Summary ---
Author Organization [facility] Address [facility] [place] [address] Care Team Providers Care Security Administrator Name Role Phone AdaJewels ca Shruthi BAUM Primary Care Provider [phone] Reason for Visit * Reason Comments Radiation Treatment Encounter Details Date Type Department Care Team (Late st Contact Info) Description 09/14/2015 9:30 AM EDT Office Visit Radiation Oncology at [address] [address] Maegan Eng MD [facility] [place] [address] Malignant neoplasm of left female breast, unspecified [...] Sign Reading Time Taken Comments Blood Pressure 119/80 09/14/2015 9:00 AM EDT Pulse 87 09/14/2015 9:00 AM EDT Temperature 36.8 ??C (98.2 ??F) 09/14/2015 9 :00 AM EDT Respiratory Rate 18 09/14/2015 9:00 AM EDT Oxygen Saturation 98% 09/14/2015 9:0 0 AM EDT Inhaled Oxygen Concentration - - Weight 94.1 kg (207 lb 6.4 oz) 09/14/19 16 9:00 AM EDT with shoes Height - - Body Mass Index 32.55 08/16/2015 8:55 AM EST documented in this encounter Patient Instructions * Patient Instructions* Maegan Eng MD - 09/14/2015 9:51 AM EDT Try over the counter advil/ibuprofen for your left shoulder pain. You may take up to 4 tablets @ a time. Do not take more than 16 tablets daily. documented in this encounter Progress Notes * Maegan Eng MD - 09/14/2015 9:43 AM EDT DIAGNOSIS: Breast ca, L, IDC, low gr, ER+NE+, [id number] s/p lumpectomy & SNB, pT1b pN1a, stage II. S/p adjuvant chemo. CURRENT TREATMENT DOSE: 12.6 Gy L supraclav, L axilla & L breast ANTICIPATED TOTAL DOSE: 50.4 Gy L supraclav, L axilla & L breast, 60.4 Gy lumpectomy bed L breast Current # of xrt received: 7 Anticipated total # of xrt txs: 28 L supraclav, L axilla & L breast, 33 lumpectomy bed L breast Evaluation of port verification films: Approved. For details, see electronic film record in [employer]. Changes in Medical Condition: Has developed L shoulder blade/shoulder pain over the past wk, inadequately relieved by tylenol. She took an oxycodone @ bedtime last night to enable her to sleep. Skin w/in irrad'd area ok. Pain?: See above. Physical Exam: BP 119/80 mmHg Pulse 87 Temp(Src) 36.8 ??C (98.2 ??F) (Oral) Resp 18 SpO2 98% A&Ox3, in NAD. L breast, supraclav & axilla w/o erythema. Nl ROM L arm. Response to xrt: As expected. Irradiation Related Symptoms: None. Treatment for Symptom Control: Reyes's cream. Pain Management: Advil/ibuprofen rec'd. Recommendation on Continuing Course of xrt: Cont. Plain xray L scapula, L shoulder & L humerus today. documented in this encounter Plan of Treatment Upcoming Encounters Date Type Department Care Team (Late st Contact Info) Description 12/04/2024 11:00 AM EDT Office [place] [address] Roddy Olson MD [facility] [place] [address] documented as of this encounter Visit Diagnoses Diagnosis Malignant neoplasm of left female breast, unspecified site of breast documented in this encounter Care Teams Security Administrator Relationship Specialty Start Date End Date Jewels Sorto APRN PCP - General 05/24/10 01/09/18 documented as of this encounter
--- OUTSIDE RECORDS SUMMARY | 2024-02-04 18:40 | XMS_ITS | Encounter Summary ---
Author Organization [facility] Address [facility] [place] [address] Care Team Providers Care Paintings Restorer Name Role Phone Jewels Sorto APRN Primary Care Provider [phone] Reason for Visit * Reason Comments Chemotherapy * Treatment/Therapy Plan Authorization (Routine) - Closed Specialty Diagnoses / Procedures Referred By Contac t Referred To Contact Hematology and Oncology Diagnoses Malignant neoplasm of unspecified site of left female breast Procedures TC PACLITAXEL, 1MG, INJ Hector Carey MD [address] [place] [id number] Hector Carey MD [address] [place] [id number] Referral ID Status Reason Start Date Expiration Date Visits Re quested Visits Authorized [id number] Closed 08/18/2015 08/17/2016 24 24 Encounter Details Date Type Department Care Team (Late st Contact Info) Description 06/14/2015 9:30 AM EST Infusion Hematology Oncology at [address] [phone] Breast cancer, left breast Social [...] as of this encounter Progress Notes * Enrrique Carlos RN - 06/14/2015 9:26 AM EST INFUSION THERAPY ADMINISTRATION NOTES DIAGNOSIS: Breast CA CYCLE #:Day 15 Cycle 1 REASON FOR VISIT: Chemotherapy SUBJECTIVE Kelley offers no complaints. OBJECTIVE LAB DATA:BUN 12 ; Creat 0.70; Plt 268; ANC 3.30 IV ACCESS: R chest Port Pre administration: Chemotherapy orders independently verified for drug name, route, and dosage per patient's height, weight and BSA by Efra Power RN and Lily Garcia rn. REACTIONS (DESCRIPTION, TIME, INTERVENTION AND EFFECTIVENESS) none ASSESSMENT Kelley was awake, alert and tolerated treatment well. PLAN Return to clinic per routine. documented in this encounter Plan of Treatment Upcoming Encounters Date Type Department Care Team (Late st Contact Info) Description 12/04/2024 11:00 AM EDT Office [place] [address] Roddy Olson MD [facility] [place] [address] documented as of this encounter Visit Diagnoses Diagnosis Breast cancer, left breast Malignant neoplasm of breast (female), unspecified site documented in this encounter Administered Medications Inactive Administered Medications - up to 3 most recent administrations Medication Order MAR Action Action Date Dose Rate Site dexamethasone (DECADRON) injection 10 mg 10 mg, Intravenous, ONCE, 1 dose, On Sun06/14/15 at 0945, Administer 30 minutes prior to PACLitaxel Given 06/14/2015 9:50 AM EST 10 mg diphenhydrAMINE (BENADRYL) injection 25 mg 25 mg, Intravenous, ONCE, 1 dose, On Sun06/14/15 at 0945, Administer 30 minutes prior to PACLitaxel, Routine Given 06/14/2015 10:05 AM EST 25 mg famotidine (PEPCID) injection 20 mg 20 mg, Intravenous, ONCE, 1 dose, On Sun06/14/15 at 0945, Administer 30 minutes prior to PACLitaxel Given 06/14/2015 10:01 AM EST 20 mg heparin, porcine 100 unit/mL flush 500 Units 500 Units, Intravenous, ONCE PRN, Starting on Sun06/14/15 at 1141, Until Sun06/14/15 at 1456, Line Care, Refer to Intravenous (IV) Procedure: Accessing Implanted Vascular Access Devices (654) procedure and/or Intravenous (IV) Job Aid: Adult Flushing & Catheter Care (2409) job aid for additional information regarding guidelines and administration., Routine Given 06/14/2015 11:40 AM EST 500 Units PACLitaxel (TAXOL) 166 mg in dextrose 5% Non-PVC 277.6667 mL chemo infusion 166 mg (rounded from 165.6 mg = 80 mg/m2/dose ? 2.07 m2 Treatment Plan BSA from Recorded weight), Intravenous, ONCE, 1 dose, On Sun06/14/15 at 1045, Administer over 60 Minutes New Bag 06/14/2015 10:31 AM EST 166 mg 277 mL/hr palonosetron (ALOXI) injection 0.25 mg 0.25 mg, Intravenous, ONCE, 1 dose, On Sun06/14/15 at 0945, Routine Given 06/14/2015 9:57 AM EST 0.25 mg sodium chloride 0.9 % flush 5-20 mL 5-20 mL, Intravenous, EVERY 1 MIN PRN, Starting on Sun06/14/15 at 1141, Until Sun06/14/15 at 1456, Line Care, Flush pertains to all indwelling lines. Flush per protocol found in the job aid using the link provided on this medication record. Refer to Intravenous (IV) Job Aid: Adult Flushing & Catheter Care (5404) job aid for additional information regarding guidelines and administration., Routine Given 06/14/2015 11:40 AM EST 20 mLs documented in this encounter Care Teams Paintings Restorer Relationship Specialty Start Date End Date Jewels Sorto APRN PCP - General 05/24/10 01/09/18 documented as of this encounter
--- OUTSIDE RECORDS SUMMARY | 2024-02-04 18:40 | XMS_ITS | Encounter Summary ---
Author Organization [facility] [place] [address] Care Team Providers Care Landscape Architecture Professor Name Role Phone Jewels Sorto APRN Primary Care Provider [phone] Reason for Visit * Reason Comments Breast Cancer Encounter Details Date Type Department Care Team (Late st Contact Info) Description 08/02/2015 9:00 AM EST Office Visit Hematology/Oncology at [address] [phone] Hector Carey MD [address] [place] [address] Malignant neoplasm of upper-inner quadrant of left female breast Social History [...] Sign Reading Time Taken Comments Blood Pressure 121/55 08/02/2015 8:28 AM EST Pulse 88 08/02/2015 8:28 AM EST Temperature 36.8 ??C (98.2 ??F) 08/02/2015 8:28 AM ES T Respiratory Rate 16 08/02/2015 8:28 AM EST Oxygen Saturation 99% 08/02/2015 8:28 AM EST Inhaled Oxygen Concentration - - Weight 93.4 kg (206 lb) 08/02/2015 8:28 AM EST Height 170 cm (5' 6.93) 08/02/2015 8:28 AM EST Body Mass Index 32.33 08/02/2015 8:28 AM EST documented in this encounter Progress Notes * Hector Carey MD - 08/02/2015 8:57 AM EST Diagnosis: 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 The tumor was 0.7 cm, low-grade, ER/TX positive, with 1 of 3 sentinel positive nodes. HER-2 was negative. Subjective: Kelley comes in today for her tenth weekly treatment with adjuvant Taxol being given after four cycles of dose dense Adriamycin and Cytoxan in the adjuvant treatment of her breast cancer. She continues to tolerate the chemotherapy with good control of her nausea and vomiting. She is not having any neuropathy symptoms in her hands but perhaps has some subtle numbness in her feet although she is not certain. Nausea and vomiting are well controlled and her bowels have been fine. She does have some fatigue but that is tolerable and her myalgias and arthralgias are reasonably tolerated. Review of systems is otherwise negative. We did discuss her radiation therapy after the completion of treatment and getting her port out after her 12th weekly treatment. 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 Hematological: Negative for adenopathy. BP 121/55 mmHg Pulse 88 Temp(Src) 36.8 ??C (98.2 ??F) (Oral) Resp 16 Ht 170 cm (5' 6.93) Wt 93.441 kg (206 lb) BMI 32.33 kg/m2 SpO2 99% Head: Normocephalic, without obvious [...] axillary nodes normal Neurologic: Normal Laboratory today is reviewed. Electrolytes are completely normal. Creatinine is 0.7, calcium 8.7, ALP 85. CBC shows a white count of 5.15, hemoglobin of 11.0, hematocrit 32.7, and platelet count of 323. Absolute neutrophil count is 3.16. Assessment/Plan: Kelley is tolerating the adjuvant treatment quite well. She is starting to have some subtle changes of neuropathy but I think she may get by without any significant problems. As far as her chemotherapy associated anemia, it is still present but is subtly and slowly getting a bit better on the taxane. Antiemetics are not changed as she is not having any symptoms on the current regimen. We discussed long-term followup and getting her port out as noted. We will see her next week with a CBC and CMP and she will call if there are any issues or problems in the interim. She will continue to take Tylenol as needed for her treatment associated myalgias and arthralgias. documented in this encounter Plan of Treatment Upcoming Encounters Date Type Department Care Team (Late st Contact Info) Description 12/04/2024 11:00 AM EDT Office Visit [place] [address] Roddy Olson MD [facility] [place] [address] documented as of this encounter Procedures Procedure Name Priority Date/Time Associated Diagnosis Comments LAB SCAN 08/02/2015 12:00 AM EST documented in this encounter Results * SCAN DOC: LAB (08/02/2015 12:00 AM EST) Scanning Provider MEDIA MGR SCAN EXT O RDR/RSLT documented in this encounter Visit Diagnoses Diagnosis Malignant neoplasm of upper-inner quadrant of left female breast Malignant neoplasm of upper-inner quadrant of female breast documented in this encounter Care Teams Landscape Architecture Professor Relationship Specialty Start Date End Date Jewels Sorto APRN PCP - General 05/24/10 01/09/18 documented as of this encounter
--- OUTSIDE RECORDS SUMMARY | 2024-02-04 18:40 | XMS_ITS | Encounter Summary ---
[facility] [place] [address] Care Team Providers Care [employer] Name Role Phone Jewels Sorto APRN Primary Care Provider [phone] Reason for Visit * Reason Comments Chemotherapy Taxol, Cycle 1, Day 1 * Treatment/Therapy Plan Authorization (Routine) - Closed Specialty Diagnoses / Procedures Referred By Saad t Referred To Contact Hematology and Oncology Diagnoses Malignant neoplasm of unspecified site of left female breast Procedures TC PACLITAXEL, 1MG, INJ Hector Carey MD [address] [place] [id number] Hector Carey MD [address] [place] [id number] Referral ID Status Reason Start Date Expiration Date Visits Re quested Visits Authorized [id number] Closed 08/18/2015 08/17/2016 24 24 Encounter Details Date Type Department Care Team (Late st Contact Info) Description 05/31/2015 9:30 AM EST Infusion Hematology Oncology at [address] [address] Breast cancer, left breast Social [...] Progress Notes * Aleisha Landis RN - 05/31/2015 10:12 AM EST INFUSION THERAPY ADMINISTRATION NOTES DIAGNOSIS: Breast Cancer CYCLE # ., Day 1 REASON FOR VISIT: Taxol Infusion SUBJECTIVE Kelley offers no complaints. OBJECTIVE LAB DATA: WBC 5.67, HGB 10.2, PLTS 343, ANC 3.91, Crea t0.73 IV ACCESS: Mediport Pre administration: Chemotherapy orders [...] EDT Office Visit [place] [address] Roddy Olson MD [facility] [place] [address] documented as of this encounter Visit Diagnoses Diagnosis Breast cancer, left breast Malignant neoplasm of breast (female), unspecified site documented in this encounter Administered Medications Inactive Administered Medications - up to 3 most recent administrations Medication Order MAR Action Action Date Dose Rate Site dexamethasone (DECADRON) injection 10 mg 10 mg, Intravenous, ONCE, 1 dose, On Sun05/31/15 at 0945, Administer 30 minutes prior to PACLitaxel Given 05/31/2015 9:45 AM EST 10 mg diphenhydrAMINE (BENADRYL) injection 25 mg 25 mg, Intravenous, ONCE, 1 dose, On Sun05/31/15 at 0945, Administer 30 minutes prior to PACLitaxel, Routine Given 05/31/2015 9:50 AM EST 25 mg famotidine (PEPCID) injection 20 mg 20 mg, Intravenous, ONCE, 1 dose, On Sun05/31/15 at 0945, Administer 30 minutes prior to PACLitaxel Given 05/31/2015 9:47 AM EST 20 mg heparin, porcine 100 unit/mL flush 500 Units 500 Units, Intravenous, ONCE PRN, Starting on Sun05/31/15 at 0924, Until Sun05/31/15 at 1346, Line Care, Refer to Intravenous (IV) Procedure: Accessing Implanted Vascular Access Devices (654) procedure and/or Intravenous (IV) Job Aid: Adult Flushing & Catheter Care (7270) job aid for additional information regarding guidelines and administration., Routine Given 05/31/2015 11:45 AM EST 500 Units LORazepam (ATIVAN) tablet 0.5 mg 0.5 mg, Oral, ONCE, 1 dose, On Sun05/31/15 at 0945, Administer prior to chemotherapy, Routine Given 05/31/2015 9:42 AM EST 0.5 mg PACLitaxel (TAXOL) 166 mg in dextrose 5% Non-PVC 277.6667 mL chemo infusion 166 mg (rounded from 165.6 mg = 80 mg/m2/dose ? 2.07 m2 Treatment Plan BSA from Recorded weight), Intravenous, ONCE, 1 dose, On Sun05/31/15 at 1045, Administer over 60 Minutes New Bag 05/31/2015 10:37 AM EST 166 mg 277 mL/hr palonosetron (ALOXI) injection 0.25 mg 0.25 mg, Intravenous, ONCE, 1 dose, On Sun05/31/15 at 0945, Routine Given 05/31/2015 9:44 AM EST 0.25 mg sodium chloride 0.9 % flush 5-20 mL 5-20 mL, Intravenous, EVERY 1 MIN PRN, Starting on Sun05/31/15 at 0924, Until Sun05/31/15 at 1346, Line Care, Flush pertains to all indwelling lines. Flush per protocol found in the job aid using the link provided on this medication record. Refer to Intravenous (IV) Job Aid: Adult Flushing & Catheter Care (0017) job aid for additional information regarding guidelines and administration., Routine Given 05/31/2015 11:45 AM EST 20 mLs documented in this encounter Care Teams [employer] Relationship Specialty Start Date End Date Jewels Sorto APRN PCP - General 05/24/10 01/09/18 documented as of this encounter
--- OUTSIDE RECORDS SUMMARY | 2024-02-04 18:40 | XMS_ITS | Encounter Summary ---
Author Organization [facility] Address [facility] [place] [address] Care Team Providers Care Corrections Counselor Name Role Phone AtkinsonJewels ca Shruthi BAUM Primary Care Provider [phone] Reason for Visit * Reason Comments Radiation Treatment Encounter Details Date Type Department Care Team (Late st Contact Info) Description 10/05/2015 9:30 AM EDT Office Visit Radiation Oncology at [address] [phone] Maegan Eng MD [facility] [place] [address] Malignant neoplasm of left female breast, unspecified [...] Sign Reading Time Taken Comments Blood Pressure 116/66 10/05/2015 9:00 AM EDT Pulse 78 10/05/2015 9:00 AM EDT Temperature 36.7 ??C (98.1 ??F) 10/05/2015 9:00 AM ED T Respiratory Rate 18 10/05/2015 9:00 AM EDT Oxygen Saturation 99% 10/05/2015 9:00 AM EDT Inhaled Oxygen Concentration - - Weight 94 kg (207 lb 3.2 oz) 10/05/2015 9:00 AM EDT Height - - Body Mass Index 32.52 08/16/2015 8:55 AM EST documented in this encounter Progress Notes * Maegan Eng MD - 10/05/2015 9:47 AM EDT DIAGNOSIS: Breast ca, L, IDC, low gr, ER+PA+, Qxs0bpb-, s/p lumpectomy & SNB, pT1b pN1a, stage II. S/p adjuvant chemo. CURRENT TREATMENT DOSE: 36 Gy L supraclav, L axilla & L breast ANTICIPATED TOTAL DOSE: 50.4 Gy L supraclav, L axilla & L breast, 60.4 Gy lumpectomy bed L breast Current # of xrt received: 20 Anticipated total # of xrt txs: 28 L supraclav, L axilla & L breast, 33 lumpectomy bed L breast Evaluation of port verification films: Approved. For details, see electronic film record in [employer] System. Changes in Medical Condition: Says her PCP requested US pelvis to check her ovaries, which showed thickening of lining of womb & she has been referred to [facility] for eval for womb bx. L shoulderblade/shoulder pain cleared. Sore throat cleared after she used the baking soda & salt rinse. She notes coughing up more clear phlegm over the past wk; no dyspnea/fever. Skin w/in irrad'd area ok. Pain?: See above. Physical Exam: BP 116/66 mmHg Pulse 78 Temp(Src) 36.7 ??C (98.1 ??F) (Oral) Resp 18 Wt 93.985 kg (207 lb 3.2 oz) SpO2 99% A&Ox3, in NAD. Intraoral exam w/o erythema/lesion/exudate. Lungs clear. Mild erythema w/in irrad'd area; skin intact. Xrays: 09/14/15 [...] AM EDT Office [place] [address] Roddy Olson MD [facility] [place] [address] documented as of this encounter Visit Diagnoses Diagnosis Malignant neoplasm of left female breast, unspecified site of breast documented in this encounter Care Teams Corrections Counselor Relationship Specialty Start Date End Date Jewels Sorto APRN PCP - General 05/24/10 01/09/18 documented as of this encounter
--- OUTSIDE RECORDS SUMMARY | 2024-02-04 18:40 | XMS_ITS | Encounter Summary ---
[facility] [place] [address] Care Team Providers Care Cafeteria Worker Name Role Phone Jewels Sorto APRN Primary Care Provider [phone] Reason for Visit * Reason Comments Breast Cancer Encounter Details Date Type Department Care Team (Late st Contact Info) Description 08/16/2015 9:00 AM EST Office Visit Hematology/Oncology at [address] [phone] Hector Carey MD [address] [place] [phone] Malignant neoplasm of upper-outer quadrant of left [...] Taken Comments Blood Pressure - - Pulse 81 08/16/2015 8:55 AM EST Temperature 36.6 ??C (97.9 ??F) 08/16/2015 8:55 AM ES T Respiratory Rate 16 08/16/2015 8:55 AM EST Oxygen Saturation 99% 08/16/2015 8:55 AM EST Inhaled Oxygen Concentration - - Weight 94.8 kg (209 lb) 08/16/2015 8:55 AM EST Height 170 cm (5' 6.93) 08/16/2015 8:55 AM EST Body Mass Index 32.8 08/16/2015 8:55 AM EST documented in this encounter Progress Notes * Hector Carey MD - 08/16/2015 9:13 AM EST Diagnosis: 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 The tumor was 0.7 cm, low-grade, ER/CA positive, with 1 of 3 sentinel positive nodes. HER-2 was negative. Subjective: Kelley comes in today for her twelfth and final Taxol chemotherapy infusion. She was treated with dose dense Adriamycin and Cytoxan followed by 12 weekly Taxol infusions. She started developing a little neuropathy a couple of weeks ago and that has perhaps gotten a little bit worse. She has a little bit of tingling and numbness in her fingertips and a little bit more at the balls of her feet and toes. There is no pain associated with it. Her did raise some questions about possible vitamin therapy for prevention. We went over the literature concerning that. Unfortunately, there have not been any strategies devised that prevent or attenuate the neuropathy. On the other hand, it is fortunate she only has a bit of neuropathy and is actually on the good end of the spectrum. That being said, there is usually significant improvements over six months to a year in neuropathy symptoms so the prognosis is good manager terminal. We discussed her ER positivity and in also getting her port out today. She has an appointment also to get started on radiation therapy to improve her odds of local control. She is in good spirits today and quite proud of herself for completing the chemotherapy on time at full doses. She has done quite well. She is not having any significant nausea or vomiting or other symptoms. 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 Neurological: Negative. Hematological: Negative for adenopathy. Pulse 81 Temp(Src) 36.6 ??C (97.9 ??F) (Oral) Resp 16 Ht 170 cm (5' 6.93) Wt 94.802 kg (209 lb) BMI 32.80 kg/m2 SpO2 99% Head: Normocephalic, without obvious [...] normal Neurologic: Normal Review of her lab shows a white count of 4.15, hemoglobin 11.6, hematocrit 34.4, and platelet count of 288. Absolute neutrophil count is 2.61. CMP shows sodium of 142, creatinine of 0.76, an ALP of 80, and normal liver tests. Assessment/Plan: Kelley is doing well and tolerating that taxane chemotherapy quite well with only some mild neuropathy. It may get a little worse before it gets better but I think overall her prognosis should be good with that. We will go ahead with her final treatment today as planned. She is scheduled for radiation therapy as noted and we will make sure she gets her port out in the next week or two. We will see her back towards the end of chemotherapy to discuss going on an aromatase inhibitor for five but more likely ten years. We will check lab prior to that appointment. Her chemotherapy associated anemia is mild and should get better but we will be checking to make sure that trend continues when we see her back. She will call if there are any issues or problems in the interim. documented in this encounter Plan of Treatment Upcoming Encounters Date Type Department Care Team (Late st Contact Info) Description 12/04/2024 11:00 AM EDT Office [place] [address] Roddy Olson MD [facility] [place] [address] documented as of this encounter Visit Diagnoses Diagnosis Malignant neoplasm of upper-outer quadrant of left female breast Malignant neoplasm of upper-outer quadrant of female breast documented in this encounter Care Teams Cafeteria Worker Relationship Specialty Start Date End Date Jewels Sorto APRN PCP - General 05/24/10 01/09/18 documented as of this encounter
--- OUTSIDE RECORDS SUMMARY | 2024-02-04 18:40 | XMS_ITS | Encounter Summary ---
Author Organization Counts Include [facility] Address [facility] [place] [address] Care Team Providers Care Rock Mason Apprentice Name Role Phone [employer] ca Shruthi BAUM Primary Care Provider [phone] Reason for Visit * Auth/Cert Specialty Diagnoses [...] Expiration Date Visits Re quested Visits Authorized [id number] 1 1 Encounter Details Date Type Department Care Team (Late st Contact Info) Description 11/16/2015 11:01 AM EDT Anesthesia [place] [address] Yunile Jane MD [facility] [place] [address] Anesthesia Record Procedure Summary Procedure Name Responsible Anesthesiologist Anesthesia Start Time Anesthesia Stop Time ROBOTIC LAPAROSCOPY, HYSTERECTOMY, UTERUS<250GM (WRVU 13.36) (Uterus) Yuniel Jane MD 11/16/15 1101 11/16/15 1428 Events Date Time Event Comment 11/16/2015 0958 1101 Start 1105 AN Verify 1106 An Start Data 1110 An Induction 1112 An Intubation 1115 Anesthesia Ready 1137 Procedure Start 1203 Break/Relief In YUNIEL SCHNEIDER MD 1227 Break/Relief Out 1417 Procedure Stop 1420 Extubation/LMA Out 1420 an stop data 1428 Recovery or ICU Handoff Vivi ent care was transferred to the destination unit staff after review of the patient's medical history, current anesthetic/surgical status and plan, according to the Provider Handoff Checklist. 1428 Stop Meds Name Total Midazolam 2 mg fentaNYL 100 mcg Propofol 200 mg Rocuronium 80 mg ePHEDrine 5 mg Ondansetron 8 mg Dexamethasone 8 mg Neostigmine 4 mg Glycopyrrolate 0.6 mg heparin (porcine) subcutaneous injection 5,000 Units 5,000 Units ceFAZolin (ANCEF) 2g in dextrose 5% 50 m L 2 g Propofol INF 398.97 mg Ketorolac 30 mg HYDROmorphone 0.8 mg Lactated Ringers 700 mL Lactated Ringers 800 mL * Agents Name O2 Air Sevoflurane (et) * Blood No blood administrations on file. Lines, Drains, and Airways Type Details Placement Removal (RETIRED) Implanted Port - Single Lumen (non-apheresis) 03/22/15; other (see comments) (right upper chest); superior vena cava 03/22/15 0000 by Kelley Cabrera RN Incision 02/16/15; breast; 11/16/15; 1422 02/16/15 0000 by Eleanor Hernandez RN 11/16/15 1422 by Luciana Bass RN Incision 11/16/15; vagina; 02/27/22 (LDA cleanup utility RA#[id number]); 1715 (LDA cleanup utility RA#[id number]) 11/16/15 0000 by Mirella Chand RN 02/27/22 1715 by Ann Marie Chavarria Incision 11/16/15; abdomen; laparoscopic punctures (specify); X5 port sites; 02/27/22 (LDA cleanup utility RA#[id number]); 1715 (LDA cleanup utility RA#[id number]) 11/16/15 0000 by Mirella Chand RN 02/27/22 1715 by Ann Marie Chavarria (RETIRED) Peripheral IV Line - Single Lumen 11/16/15; 1106; 18 gauge; Dakota Varma CRNA; 11/17/15; 1154 11/16/15 1106 by Dakota Varma CRNA 11/17/15 1154 by Josephine Manzanares RN ETT Mask Ventilation: Ea sy (1); ETT Type: Cuffed, Oral; ETT Size: 7 mm; Mac Blade: 3; Notes: Asleep, Pre-O2, Stylette; Attempts: 1; Laryngoscopy Grade: 1; ETT Placement Verified By: Auscultation, Capnometry, Visual; Secured at Teeth: 21 cm; Inserted by: Dakota Varma CRNA; Removal Date: 11/16/15; Removal Time: 1420 11/16/15 1112 by Dakota Varma CRNA 11/16/15 1420 by Dakota Varma CRNA Urethral Catheter 11/16/15; 1130; Abdominal surgery; Physician order; indwelling double lumen catheter; latex; 14; inserted at this facility; 1; 10; 10; other (see comments) (general anesthesia); drainage bag to dependent drainage; 11/17/15; 0746 11/16/15 1130 by Mirella Chand RN 11/17/15 0746 by Fartun Gutierrez RN (RETIRED) Peripheral IV Line - Single Lumen 11/16/15; 1439; basilic vein right (medial side of arm); kosz-[id number] catheter system; 20 gauge; 11/17/15; 1154 11/16/15 1439 by Jose Dumont RN 11/17/15 1154 by Josephine Manzanares RN documented in this encounter Social History Tobacco Use Types Packs/Day Years [...] on file documented as of this encounter OR Notes * Anesthesia Postprocedure Evaluation - Yuniel Jane - 11/16/2015 2:[address] [facility] Department of Anesthesiology Post-procedure Note Patient: Kelley Jensen Procedure Summary Date Anesthesia Start Anesthesia Stop Room / Location 11/16/15 1101 1428 [facility] OR [facility] MAIN OR Procedure Diagnosis Surgeon Responsible Provider LAPAROSCOPY, HYSTERECTOMY, UTERUS<250GM, ROBOTIC ASSIST (N/A Uterus); LAPAROSCOPY,W\BILATERAL TOTAL PELVIC LYMPHADENECTOMY, PERIAORTIC LYMPH NODE SAMPLING, ROBOTIC (N/A Uterus); MODIFIER ROBOT,DAVINCI XI (N/A ) (ENDOMETRIAL CANCER) Meghan Baltazar MD Dewhirst, William E, MD All Anesthesia Providers: Anesthesiologist: Yuniel Jane MD CLERK GENERAL OFFICE: Dakota Varma CRNA Last (1hr) Vitals: BP 92/75 (11/16/15 1424) Temp 36.6 ??C (97.9 ??F) (11/16/15 142) Pulse 77 (11/16/15 1424) Resp 20 (11/16/15 1424) SpO2 93 % (11/16/15 142) Patient Location: PACU/[facility] Level of Consciousness: Awake and Alert Pain Management: Satisfactory Analgesia PONV: None Cardiovascular Status: At Baseline and Hemodynamically Stable Respiratory Status: At Baseline and Supplemental O2 (NC or FM) Postoperative Fluid Status: Intravascular EUvolemia Possible Anesthetic Complications: NONE apparent at time of evaluation Final Primary Anesthesia Type: General (The anesthetic type performed was the same as planned.) Comments: No complaints. No issues related to anesthesia. YUNIEL JANE MD * Anesthesia Preprocedure Evaluation - Yuniel Jane - 11/16/2015 6:23 AM EDT Pre-Anesthesia Evaluation for: Kelley Jensen a 60 y.o. female. Procedure(s): LAPAROSCOPY, HYSTERECTOMY, UTERUS<250GM, ROBOTIC ASSIST LAPAROSCOPY,W\BILATERAL TOTAL PELVIC LYMPHADENECTOMY, PERIAORTIC LYMPH NODE SAMPLING, ROBOTIC MODIFIER ROBOT,DAVINCI XI Patient Active Problem List Diagnosis ??? Abnormal ultrasound of endometrium ??? Obesity ??? Malignant neoplasm of upper-outer quadrant of left female breast ??? Dietary counseling and surveillance Past Medical History Diagnosis Date ??? Breast cancer, left breast 2014 Past Surgical History Procedure Laterality Date ??? Pro excise breast les w xray marker Left 02/16/2015 EXCISION LESION, BREAST W/ PREOP.MARKER (NEEDLE LOC.) performed by Shiloh Cruz MD at [facility] ??? Pro bx/remv, lymph node, deep axill Left 02/16/2015 BIOPSY OR EXCISION OF LYMPH NODE(S), OPEN, DEEP AXILLARY NODE(S) performed by Shiloh Cruz MD at [facility] ??? Pro identify sentinel node Left 02/16/2015 SENTINEL NODE INJECTION performed by Shiloh Cruz MD at [facility] ??? Left 02/16/2015 MODIFIER WITH NEEDLE LOC. performed by Shiloh Cruz MD at [facility] ??? Left 02/16/2015 MODIFIER SENTINEL NODE EXCISION performed by Shiloh Cruz MD at [facility] History Substance Use Topics ??? Smoking status: Former Smoker Packs/day: 1.00 Years: 30.00 Types: Cigarettes Quit date: 02/25/2015 ??? Smokeless tobacco: Never Used ??? Alcohol use: No History Drug Use No No Known Allergies Medications: MAR and/or home medications have been reviewed. Physical Exam: There were no vitals filed for this visit. There is no height or weight on file to calculate BMI. Airway Assessment: Mallampati: I TM distance: >3 FB Neck ROM: full Cardiovascular Assessment: Rhythm: regular Rate: normal cardiovascular exam normal Pulmonary Assessment: breath sounds clear to auscultation pulmonary exam normal Dental Assessment: (+) upper dentures Misc Assessment: IV access: Peripheral line Other exam findings: LMA in past. No other airway data available. Denies known loose lower teeth or dental work. Anesthesia Plan: ASA 2 General, with a(n) intravenous induction Anesthesiology Staff (Dakota): Pre-op summary note as per above. Scheduled for robotic-assisted, laparoscopic ALAINA/BSO and lymphadenectomy. PMH notable for HTN, obesity, hypothyroidism (replaced), RAD (rare, prn inhaler use only.) I have reviewed the history, available records and diagnostic data,then formulated and discussed the anesthetic plan with patient. Anesthetic alternatives (where appro priate), procedures, risks (from common and minor to rare and and major) and consent for anesthesiawere reviewed. The patient accepts that additional procedures and/or escalation of care may be necessary as dictated by the course of the procedure/anesthetic. All questions have been answered and the consent form signed. There are no pertinent advance directives. Plan: GA/OETT;IV induction;routine monitors;2nd IV access. Region - Other Informed Consent: Anesthetic plan and risks discussed with patient and spouse. Use of blood products discussed with patient whom consented to blood products. Plan discussed with CLERK GENERAL OFFICE. PAT Staff Note documented in this encounter Plan of Treatment Upcoming Encounters Date Type Department Care Team (Late st Contact Info) Description 12/04/2024 11:00 AM EDT Office [place] [id number] Roddy Olson MD [facility] [place] [address] documented as of this encounter Visit Diagnoses Not on filedocumented in this encounter Administered Medications Inactive Administered Medications - up to 3 most recent administrations Medication Order MAR Action Action Date Dose Rate Site ceFAZolin (ANCEF) 2g in dextrose 5% 50 mL 2 g, Intravenous, ONCE, 1 dose, On Sun11/16/15 at 1030, Administer over 30 Minutes, Redose every 3 hours if CrCl is greater than 20. Redose every 8 hours if CrCl is less than 20., Day of Surgery (Day of Procedure), Indication for (Active or Suspected): Prophylaxis Given 11/16/2015 11:15 AM EDT 2 g dexamethasone (DECADRON) injection PRN, Starting on Sun11/16/15 at 1134, Until Sun11/16/15 at 1436, Anesthesia Intra-op, Routine Given 11/16/2015 11:34 AM EDT 8 mg ePHEDrine 5 mg/mL multi-dose injection PRN, Starting on Sun11/16/15 at 1229, Until Sun11/16/15 at 1436, Anesthesia Intra-op, Routine Given 11/16/2015 12:29 PM EDT 5 mg fentaNYL 50 mcg/mL multi-dose injection PRN, Starting on Sun11/16/15 at 1156, Until Sun11/16/15 at 1436, Pain, Anesthesia Intra-op, Routine Given 11/16/2015 1:03 PM EDT 50 mcg Given 11/16/2015 11:56 AM EDT 50 mcg glycopyrrolate (ROBINUL) multi-dose injection PRN, Starting on Sun11/16/15 at 1413, Until Sun11/16/15 at 1436, Anesthesia Intra-op, Routine Given 11/16/2015 2:13 PM EDT 0.6 mg heparin (porcine) subcutaneous injection 5,000 Units 5,000 Units, Subcutaneous, ONCE, 1 dose, On Sun11/16/15 at 1030, Day of Surgery (Day of Procedure), Routine Given 11/16/2015 11:13 AM EDT 5,000 U nits HYDROmorphone (DILAUDID) injection PRN, Starting on Sun11/16/15 at 1358, Until Sun11/16/15 at 1436, Pain, Anesthesia Intra-op, Routine Given 11/16/2015 2:14 PM EDT 0.4 mg Given 11/16/2015 1:58 PM EDT 0.4 mg ketorolac (TORADOL) injection PRN, Starting on Sun11/16/15 at 1403, Until Sun11/16/15 at 1436, Pain, Anesthesia Intra-op, Routine Given 11/16/2015 2:03 PM EDT 30 mg lactated ringers infusion CONTINUOUS PRN, Starting on Sun11/16/15 at 1101, Until Sun11/16/15 at 1436, Anesthesia Intra-op New Bag 11/16/2015 11:01 AM EDT lactated ringers infusion CONTINUOUS PRN, Starting on Sun11/16/15 at 1115, Until Sun11/16/15 at 1436, Anesthesia Intra-op New Bag 11/16/2015 11:15 AM EDT midazolam (PF) (VERSED) 1 mg/mL multi-dose injection PRN, Starting on Sun11/16/15 at 1101, Until Sun11/16/15 at 1436, Sleep, Anesthesia Intra-op, Routine Given 11/16/2015 11:01 AM EDT 2 mg neostigmine (PROSTIGMINE) multi-dose injection PRN, Starting on Sun11/16/15 at 1413, Until Sun11/16/15 at 1436, Anesthesia Intra-op, Routine Given 11/16/2015 2:13 PM EDT 4 mg ondansetron (ZOFRAN) injection PRN, Starting on Sun11/16/15 at 1402, Until Sun11/16/15 at 1436, Nausea, Anesthesia Intra-op, Routine Given 11/16/2015 2:02 PM EDT 8 mg propofol (DIPRIVAN) 10 mg/mL bolus injection (Anesthesia) PRN, Starting on Sun11/16/15 at 1110, Until Sun11/16/15 at 1436, Anesthesia Intra-op Given 11/16/2015 11:10 AM EDT 200 mg propofol (DIPRIVAN) infusion CONTINUOUS PRN, Starting on Sun11/16/15 at 1143, Until Sun11/16/15 at 1436, Anesthesia Intra-op, Routine New Bag 11/16/2015 11:43 AM EDT 30 mcg/kg/min 16.7 mL/hr rocuronium (ZEMURON) multi-dose injection PRN, Starting on Sun11/16/15 at 1110, Until Sun11/16/15 at 1436, Anesthesia Intra-op, Routine Given 11/16/2015 1:28 PM EDT 10 mg Given 11/16/2015 12:41 PM EDT 10 mg Given 11/16/2015 11:52 AM EDT 10 mg documented in this encounter Care Teams Rock Mason Apprentice Relationship Specialty Start Date End Date Jewels Sorto APRN PCP - General 05/24/10 01/09/18 documented as of this encounter
--- OUTSIDE RECORDS SUMMARY | 2024-02-04 18:40 | XMS_ITS | Encounter Summary ---
Author Organization [facility] [place] [address] Care Team Providers Care Asphalt Distributor Tender Name Role Phone Jewels Sorto APRN Primary Care Provider [phone] Reason for Visit * Reason Comments Breast Cancer Encounter Details Date Type Department Care Team (Late st Contact Info) Description 06/28/2015 9:00 AM EST Office Visit Hematology/Oncology at [address] [address] Hector Carey MD [address] [place] [address] Malignant neoplasm of female breast, left Social History Tobacco Use Types Packs/Day [...] Sign Reading Time Taken Comments Blood Pressure 134/69 06/28/2015 8:38 AM EST Pulse 93 06/28/2015 8:38 AM EST Temperature 36.8 ??C (98.2 ??F) 06/28/2015 8:38 AM ES T Respiratory Rate 16 06/28/2015 8:38 AM EST Oxygen Saturation 98% 06/28/2015 8:38 AM EST Inhaled Oxygen Concentration - - Weight 93 kg (205 lb) 06/28/2015 8:38 AM EST Height 170 cm (5' 6.93) 06/28/2015 8:38 AM EST Body Mass Index 32.18 06/28/2015 8:38 AM EST documented in this encounter Progress Notes * Hector Carey MD - 06/28/2015 8:54 AM EST Diagnosis: 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 The tumor was 0.7 cm, low-grade, ER/CO positive, with 1 of 3 sentinel positive nodes. HER-2 was negative. Subjective: Kelley comes in today for week five of 12 planned weekly Taxol chemotherapy in the adjuvant treatment of her breast cancer. She continues to have quite a bit of achiness and joint pain starting 48 hours after treatment. It lasts about a week and then improves a bit. She notes it was particularly bad the last couple of days, but seems a little better today. It has been a consistent part of her treatment of her symptoms since starting the Taxol part of the chemotherapy. She does note she has a long history of having some discomfort in those areas, especially her knees and lower back, but that being said, her chemotherapy does seem to have made it a bit worse each week. We talked about that particular side effect with Taxol. Additionally, she notes no numbness in her fingertips or toes. She does have a small red area on her right buttock and notes that she has always been told that was shingles. We did treat her some weeks ago for a vesicular-type rash, but in talking to her she notes that over the years she gets that several times a year and her PCP has always called it shingles, although it frequently does not hurt in the area. That being said, we discussed the possibility of this being a herpes simples type II rash. Either way, though, one would want to treat it in this setting. She is not having any pain and there has been no vesicles. The patch is approximately 1.5 cm across. 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 Hematological: Negative for adenopathy. BP 134/69 mmHg Pulse 93 Temp(Src) 36.8 ??C (98.2 ??F) (Oral) Resp [...] nodes normal Neurologic: Normal Laboratory today shows a white count of 4.76, hemoglobin 10.5, hematocrit 31.6, platelet count of 286. CMP shows a potassium of 3.9, creatinine of 0.8, normal liver tests with an ALP of 92. Bilirubin is 0.31 and calcium 8.5. Assessment/Plan: Kelley is fine today for week five Taxol of 12 planned weekly infusions. She is not having any peripheral neuropathy. I do think the chemotherapy has exacerbated her arthritis symptoms, and we will continue to watch that. Since her platelets are fine, I have given her permission to take a nonsteroidal antiinflammatory. We will be following both creatinine and platelet count weekly. I do think she has a herpes-type infection starting up. We will put her back on Valtrex and see if that does not clear it up. I am not sure, however, this is zoster and may be herpes simplex as noted in the above discussion. We will see her back in a week with a CBC and CMP. We will continue to follow her chemotherapy-associated anemia, blood counts and symptoms with chemotherapy including nausea, vomiting, and constipation. Currently, these are well controlled on the current medical regimen. documented in this encounter Plan of Treatment Upcoming Encounters Date Type Department Care Team (Late st Contact Info) Description 12/04/2024 11:00 AM EDT Office [place] [address] Roddy Olson MD [facility] DR THORACIC SURGERY [place] [id number] documented as of this encounter Procedures Procedure Name Priority Date/Time Associated Diagnosis Comments LAB SCAN 06/28/2015 12:00 AM EST documented in this encounter Results * SCAN DOC: LAB (06/28/2015 12:00 AM EST) Scanning Provider MEDIA MGR SCAN EXT O RDR/RSLT documented in this encounter Visit Diagnoses Diagnosis Malignant neoplasm of female breast, left documented in this encounter Care Teams Asphalt Distributor Tender Relationship Specialty Start Date End Date Jewels Sorto APRN PCP - General 05/24/10 01/09/18 documented as of this encounter
--- OUTSIDE RECORDS SUMMARY | 2024-02-04 18:41 | XMS_ITS | Encounter Summary ---
Author Organization [facility] Address [facility] [place] [address] Care Team Providers Care Merry Go Round Operator Name Role Phone [employer] ca Shruthi BAUM Primary Care Provider [phone] Encounter Details Date Type Department Care Team (Latest Contact Info) Description 02/24/2015 Multidisciplinary Ca re Committee [place] [address] Shiloh Cruz MD [facility] [place] [address] Social History Tobacco Use Types Packs/Day Years Used Date Smoking Tobacco: Every Day Cigarettes Smokeless Tobacco: Never Sex and Gender Information Value Date Recorded Sex Assigned at Not on file Gender Identity Not on file Sexual Orientation Not on file documented as of this encounter Progress Notes * Shiloh Cruz MD - 02/24/2015 12:30 PM EDT Breast - Tumor Board Note Date Presented: 02/24/2015 Presenting Physician: Anthony Diagnosis/Tumor Site:left breast cancer Synopsis of History/HPI: 59 yo female with left breast cancer diagnosed after screening mammogram. Biopsy revealed IDC (ER/CO+, HER2-). Low grade Partial mastectomy and sentinel node with NLOC of suspicious node on MRI 0.7cm Negative margins 1/3 nodes. No extranodal extension Problem List (Comorbidities): Patient Active Problem List Diagnosis Code ??? Malignant neoplasm of female breast 174.9 Imaging: Clinical Trial Availability: If oncotype over 25, consider enrollment on S1207 Options Discussed: consider oncotype. If over 25, Kelley is a candidate for S1207 (trial). Recommendbreast conserving radiation. No indication for ALND given Z11 parameters Recommendations: Medical Oncology consult and Radiation Oncology consult DISCLAIMER: The patient was discussed and the tumor board made recommendations but it is ultimatelyup to the treatment provider(s) and the patient to determine the patient???s care. documented in this encounter Plan of Treatment Upcoming Encounters Date Type Department Care Team (Late st Contact Info) Description 12/04/2024 11:00 AM EDT Office [place] [address] Roddy Olson MD [facility] [place] [address] documented as of this encounter Visit Diagnoses Not on filedocumented in this encounter Care Teams Merry Go Round Operator Relationship Specialty Start Date End Date Jewels Sorto APRN PCP - General 05/24/10 01/09/18 documented as of this encounter
--- OUTSIDE RECORDS SUMMARY | 2024-02-04 18:41 | XMS_ITS | Encounter Summary ---
Author Organization [facility] Address [facility] [place] [address] Care Team Providers Care Web Marketing Coordinator Name Role Phone [place] Shruthi BAUM Primary Care Provider [phone] Encounter Details Date Type Department Care Team (Late st Contact Info) Description 02/16/2015 12:53 PM EDT Anesthesia Event [place] [address] Griselda Vidales MD [facility] [place] [address] Ming Low MD [facility] [place] [address] Anesthesia Record Procedure Summary Procedure Name Responsible Anesthesiologist Anesthesia Start Time Anesthesia Stop Time EXCISION LESION, BREAST W/ PREOP.MARKER (NEEDLE LOC.) (WRVU 6.69) (Left: Breast) Griselda Vidales MD 02/16/15 1253 02/16/15 1442 Events Date Time Event Comment 02/16/2015 1250 1253 Start 1255 AN Verify 1258 An Start Data 1259 An Induction 1300 An Intubation 1301 Anesthesia Ready 1310 Procedure Start Time out don e. Local per surgeon. 1426 Extubation/LMA Out To Delete (skip) the Extubation event, click the X below. 1431 an stop data 1442 Stop Meds Name Total Midazolam 2 mg fentaNYL 125 mcg IV Lidocaine 40 mg Propofol 200 mg Ondansetron 8 mg ceFAZolin (ANCEF) 2 gram/50 mL infusion 2 g Propofol INF 532.29 mg ePHEDrine 50 mg Ketorolac 30 mg PHENYLephrine 160 mcg Dexamethasone 4 mg lactated ringers infusion 1,000 mL 1,900 mL * Agents Name O2 Air Desflurane (et) * Blood No blood administrations on file. Lines, Drains, and Airways Type Details Placement Removal (RETIRED) Peripheral IV Line - Single Lumen 02/02/15; 0745; median cubital vein left (antecubital fossa); 20 gauge; no longer indicated; 02/16/15; 15102/02/15 0745 by Luciana Huntley 02/16/15 1516 by Víctor Castillo RN Incision 02/16/15; breast; 11/16/15; 1422 02/16/15 0000 by Eleanor Hernandez RN 11/16/15 1422 by Luciana Bass RN (RETIRED) Peripheral IV Line - Single Lumen 02/16/15; 1054; metacarpal vein right (top of hand); [id number] catheter system; 20 gauge, 1 in length; DARCY Zepeda; intradermal injection, tolerated well, appears comfortable; 0; no longer indicated; 02/16/15; 1516 02/16/15 1054 by Leydi Zepeda RN 02/16/15 1516 by Víctor Castillo RN Supraglottic LMA Type: iGel; LMA Size: 3; Inserted by: Kira HALLMAN; Removal Date: 02/16/15; Removal Time: 142502/16/15 1300 by Kathy Malone CRNA 02/16/15 1426 by Kathy Malone CRNA documented in this encounter Social History Tobacco Use Types Packs/Day Years Used Date Smoking Tobacco: Every Day Cigarettes Smokeless Tobacco: Never Sex and Gender Information Value Date Recorded Sex Assigned at Not on file Gender Identity Not on file Sexual Orientation Not on file documented as of this encounter OR Notes * Anesthesia Postprocedure Evaluation - Griselda Vidales MD - 02/16/2015 4:42 PM EDT Patient: Kelley Jensen Procedure(s) Performed: Procedure(s): EXCISION LESION, BREAST W/ PREOP.MARKER (NEEDLE LOC.) BIOPSY OR EXCISION OF LYMPH NODE(S), OPEN, DEEP AXILLARY NODE(S) SENTINEL NODE INJECTION MODIFIER WITH NEEDLE LOC. MODIFIER SENTINEL NODE EXCISION Actual Anesthetic: general Patient location: PACU Post-op pain: Adequate analgesia Post-op nausea: no nausea or vomiting Last Vitals: Filed Vitals: 02/16/15 1439 BP: 125/81 Pulse: 80 Temp: 36 ??C (96.8 ??F) Resp: 18 Post-op cardiovascular and respiratory status: is stable Level of consciousness: awake, alert and oriented Complications: no apparent complications and tolerated the procedure well Fluid Status: normal * Anesthesia Preprocedure Evaluation - Griselda Vidales MD - 02/16/2015 12:50 PM EDT Pre-Anesthesia Evaluation for: Kelley Jensen a 59 y.o. female. Procedure(s): EXCISION LESION, BREAST W/ PREOP.MARKER (NEEDLE LOC.) BIOPSY OR EXCISION OF LYMPH NODE(S), OPEN, DEEP AXILLARY NODE(S) SENTINEL NODE INJECTION MODIFIER WITH NEEDLE LOC. MODIFIER SENTINEL NODE EXCISION Patient Active Problem List Diagnosis ??? Malignant neoplasm of female breast No past medical history on file. No past surgical history on file. History Substance Use Topics ??? Smoking status: Current Every Day Smoker -- 1.00 packs/day Types: Cigarettes ??? Smokeless tobacco: Never Used ??? Alcohol Use: Not on file History Drug Use Not on file No Known Allergies Medications: MAR and/or home medications have been reviewed. Physical Exam: Filed Vitals: 02/16/15 1030 BP: 147/75 Pulse: 72 Temp: 36.7 ??C (98.1 ??F) Resp: 18 Body mass index is 30.68 kg/(m^2). Height: 167.6 cm (5' 5.98) Weight - Scale: 86.183 kg (190 lb) Airway Assessment: Mallampati: II TM distance: >3 FB Neck ROM: full Cardiovascular Assessment: cardiovascular exam normal Pulmonary Assessment: pulmonary exam normal Dental Assessment: (+) upper dentures Misc Assessment: IV access: Peripheral line Anesthesia Plan: ASA 2 general, with a(n) intravenous induction Plan GA with RM- LMA. Plans and risks reviewed. Questions answered. Region - Other Informed Consent: Anesthetic plan and risks discussed with patient and spouse. Plan discussed with SQUIRT MACHINE OPERATOR and attending. Misc. Assessment: documented in this encounter Plan of Treatment Upcoming Encounters Date Type Department Care Team (Late st Contact Info) Description 12/04/2024 11:00 AM EDT Office Visit [place] [address] Roddy Olson MD [facility] [place] [address] documented as of this encounter Visit Diagnoses Not on filedocumented in this encounter Administered Medications Inactive Administered Medications - up to 3 most recent administrations Medication Order MAR Action Action Date Dose Rate Site ceFAZolin (ANCEF) 2 gram/50 mL infusion 1 dose, Starting on Sun02/16/15 at 1023, Until Sun02/16/15 at 1305, LEYDI FRIEND: cabinet override Given 02/16/2015 1:05 PM EDT 2 g dexamethasone (DECADRON) injection PRN, Starting on Sun02/16/15 at 1421, Until Sun02/16/15 at 1510, Anesthesia Intra-op, Routine Given 02/16/2015 2:21 PM EDT 4 mg ePHEDrine 5 mg/mL multi-dose injection PRN, Starting on Sun02/16/15 at 1322, Until Sun02/16/15 at 1510, Anesthesia Intra-op, Routine Given 02/16/2015 2:06 PM EDT 10 mg Given 02/16/2015 1:45 PM EDT 10 mg Given 02/16/2015 1:42 PM EDT 10 mg fentaNYL 50 mcg/mL multi-dose injection PRN, Starting on Sun02/16/15 at 1255, Until Sun02/16/15 at 1510, Pain, Anesthesia Intra-op, Routine Given 02/16/2015 1:59 PM EDT 25 mcg Given 02/16/2015 1:15 PM EDT 25 mcg Given 02/16/2015 1:09 PM EDT 25 mcg ketorolac (TORADOL) injection PRN, Starting on Sun02/16/15 at 1357, Until Sun02/16/15 at 1510, Pain, Anesthesia Intra-op, Routine Given 02/16/2015 1:57 PM EDT 30 mg lactated ringers infusion 1,000 mL 1,000 mL, at 100 mL/hr, Intravenous, CONTINUOUS, Starting on Sun02/16/15 at 1045, Until Sun02/16/15 at 1516, Day of Surgery (Day of Procedure) New Bag 02/16/2015 1:40 PM EDT New Bag 02/16/2015 10:55 AM EDT 1,000 mLs 100 mL/hr lidocaine (PF) (XYLOCAINE) 100 mg/5 mL (2 %) injection PRN, Starting on Sun02/16/15 at 1259, Until Sun02/16/15 at 1510, Anesthesia Intra-op, Routine Given 02/16/2015 12:59 PM EDT 40 mg midazolam (PF) (VERSED) 1 mg/mL multi-dose injection PRN, Starting on Sun02/16/15 at 1253, Until Sun02/16/15 at 1510, Sleep, Anesthesia Intra-op, Routine Given 02/16/2015 12:53 PM EDT 2 mg ondansetron (ZOFRAN) injection PRN, Starting on Sun02/16/15 at 1422, Until Sun02/16/15 at 1510, Nausea, Anesthesia Intra-op, Routine Given 02/16/2015 2:22 PM EDT 8 mg PHENYLephrine HCl in NS (PF) (TROY-SYNEPHRINE) 0.8 mg/10 mL (80 mcg/mL) multi-dose injection Syrg PRN, Starting on Sun02/16/15 at 1354, Until Sun02/16/15 at 1510, Anesthesia Intra-op, Routine Given 02/16/2015 2:00 PM EDT 80 mcg Given 02/16/2015 1:54 PM EDT 80 mcg propofol (DIPRIVAN) 10 mg/mL bolus injection (Anesthesia) PRN, Starting on Sun02/16/15 at 1259, Until Sun02/16/15 at 1510, Anesthesia Intra-op Given 02/16/2015 1:00 PM EDT 20 mg Given 02/16/2015 12:59 PM EDT 180 mg propofol (DIPRIVAN) infusion CONTINUOUS PRN, Starting on Sun02/16/15 at 1305, Until Sun02/16/15 at 1510, Anesthesia Intra-op, Routine Rate/Dose Change 02/16/2015 1:21 PM EDT 75 mcg/kg/min 38.8 mL/hr New Bag 02/16/2015 1:05 PM EDT 100 mcg/kg/min 51.7 mL/h r documented in this encounter Care Teams Web Marketing Coordinator Relationship Specialty Start Date End Date Jewels Sorto APRN PCP - General 05/24/10 01/09/18 documented as of this encounter
--- OUTSIDE RECORDS SUMMARY | 2024-02-04 18:41 | XMS_ITS | Encounter Summary ---
Author Organization [facility] [place] [address] Care Team Providers Care Employee Benefits Insurance Agent Name Role Phone Jewels Sorto APRN Primary Care Provider [phone] Reason for Visit * Reason Comments Breast Cancer Encounter Details Date Type Department Care Team (Late st Contact Info) Description 03/29/2015 10:30 AM EDT Follow-Up Hematology/Oncology at [address] [address] Hector Carey MD [address] [place] [id number] Breast cancer, left breast Discharge Disposition: Home Social History Tobacco [...] Sign Reading Time Taken Comments Blood Pressure 139/89 03/29/2015 10:09 AM EDT Pulse 70 03/29/2015 10:09 AM EDT Temperature 36.6 ??C (97.9 ??F) 03/29/2015 10:09 AM E DT Respiratory Rate 16 03/29/2015 10:09 AM EDT Oxygen Saturation 98% 03/29/2015 10:09 AM EDT Inhaled Oxygen Concentration - - Weight 92.1 kg (203 lb) 03/29/2015 10:09 AM EDT Height 170 cm (5' 6.93) 03/29/2015 10:09 AM EDT Body Mass Index 31.86 03/29/2015 10:09 AM EDT documented in this encounter Progress Notes * Hector Carey MD - 03/29/2015 11:04 AM EDT Diagnosis: 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 The tumor was 0.7 cm, low-grade, ER/IN positive, with 1 of 3 sentinel positive nodes. HER-2 was negative. Subjective: Kelley comes in today for her first cycle of adjuvant Adriamycin and Cytoxan. We are going to be giving this in a dose-dense fashion using Neulasta on an [id number] schedule. She has had her port placed and has had an echocardiogram. I am pleased to tell her she has a normal ejection fraction between 60 and 65%. The port placement went well and she is really not having much discomfort and is anxious to get going. She had no further questions on chemotherapy. We again went over the risks and side effects and things she should do. She has Compazine on hand at home. She is accompanied today by her . Current Outpatient Prescriptions on File Prior to Visit Medication Sig Dispense Refill ??? hydrochlorothiazide (HYDRODIURIL) 25 mg Tablet Take 25 mg by mouth daily. ??? varenicline (CHANTIX CONTINUING MONTH EMY) 1 mg Tablet Take 1 tablet by mouth 2 times daily. 60tablet 1 ??? ibuprofen (ADVIL;MOTRIN) 800 mg Tablet 600 [...] file prior to visit. No Known Allergies Medications 03/15/15 1012 Medication Sig Taking? hydrochlorothiazide (HYDRODIURIL) 25 mg Tablet Take 25 mg by mouth daily. Yes varenicline (CHANTIX CONTINUING MONTH EMY) 1 mg Tablet Take 1 tablet by mouth 2 times daily. Yes levothyroxine (SYNTHROID) 25 mcg Tablet Take by mouth daily. Yes simvastatin (ZOCOR) 40 mg Tablet Take 40 mg by mouth nightly. Yes prochlorperazine (COMPAZINE) 10 mg Tablet Take 1 tablet by mouth every 6 hours as needed for Nausea. ibuprofen (ADVIL;MOTRIN) 800 mg Tablet 600 mg. The patient is currently on disability from her breast cancer. 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 Hematological: Negative for adenopathy. BP 139/89 mmHg Pulse 70 Temp(Src) 36.6 ??C (97.9 ??F) (Oral) Resp [...] nodes normal Neurologic: Normal Review of her echocardiogram, as noted, shows an ejection fraction of 60 to 65% with no other abnormalities. Laboratory today is reviewed and her white count is 6.46, hemoglobin 13.4, hematocrit 38.7, and platelet count 225. CMP shows normal electrolytes, a creatinine of 0.8, calcium of 8.8, and an ALP of 91. Assessment/Plan: Kelley is ready to start her first chemotherapy with Adriamycin and Cytoxan. She has a good understanding of what treatment involves and does want to proceed. As noted, chemotherapy teaching again was done today and we will plan on seeing her next week to see how this first week has gone. She has antiemetics on hand if needed. documented in this encounter Plan of Treatment Upcoming Encounters Date Type Department Care Team (Late st Contact Info) Description 12/04/2024 11:00 AM EDT Office [place] [address] Roddy Olson MD [facility] [place] [address] documented as of this encounter Procedures Procedure Name Priority Date/Time Associated Diagnosis Comments LAB SCAN 03/29/2015 12:00 AM EDT documented in this encounter Results * SCAN DOC: LAB (03/29/2015 12:00 AM EDT) Scanning Provider MEDIA MGR SCAN EXT O RDR/RSLT documented in this encounter Visit Diagnoses Diagnosis Breast cancer, left breast Malignant neoplasm of breast (female), unspecified site documented in this encounter Care Teams Employee Benefits Insurance Agent Relationship Specialty Start Date End Date Jewels Sorto APRN PCP - General 05/24/10 01/09/18 documented as of this encounter
--- OUTSIDE RECORDS SUMMARY | 2024-02-04 18:41 | XMS_ITS | Encounter Summary ---
Author Organization [facility] Address [facility] [place] [address] Care Team Providers Care Mineralogy Teacher Name Role Phone NoreenJewels Shruthi BAUM Primary Care Provider Encounter Details Date Type Department Care Team (Latest Contact Info) Description 02/08/2015 9:50 AM EDT - 02/08/2015 11:59 PM EDT Hospital [place] [id number] CLINIC, Shiloh Walker MD [facility] [place] [address] Discharge Disposition: Home Social History Tobacco Use [...] Tablet Take by mouth daily. 0 01/15/2015 oxyCODONE (ROXICODONE) 5 mg Tablet Take 1-2 tablets by mouth every 4 hours as needed for Pain. 30 tablet 0 02/16/2015 03/15/2015 varenicline (CHANTIX CONTINUING MONTH EMY) 1 mg Tablet Take 1 tablet by mouth 2 times daily. 60 tablet 1 02/16/2015 04/05/2015 hydrochlorothiazide (HYDRODIURIL) 25 mg Tablet Take 25 mg by mouth daily. 0 01/15/2015 03/15/2015 ibuprofen (ADVIL;MOTRIN) 800 mg Tablet 600 mg. 0 08/27/2014 11/17/2015 simvastatin (ZOCOR) 40 mg Tablet Take 40 mg by mouth nightly. 0 01/15/2015 09/22/2019 Varenicline 0.5 mg (11)- 1 mg (42) Tablets, Dose Pack Take 0.5 mg by mouth daily. Start chantix 7 days before your quit date Take one pill once daily for 3 days then 2 pills once daily for 3 days than 2 pills twice daily until quit 53 tablet 1 01/28/2015 03/01/2015 documented as of this encounter Progress Notes * Dary Diaz RN - 02/04/2015 6:22 PM EDT VIR MRI PRE-SEDATION ASSESSMENT NOTE NAME: Kelley Jensen AGE: 59 y.o. : 1955 [address] [facility] [id number] Female [phone] (home) No relevant phone numbers on file. 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 Per Dr. Peres's note, previous MRI was not completed due to technical difficulties. HEIGHT: 5 6.5 WEIGHT:195 lb SCHEDULED SCAN:MRI Bilateral Breast. SUBJECTIVE: The last time I had an MRI, I felt like I couldn't breath and I got sweaty. It would helpful if I had a sedative. CAN YOU LAY FLAT? Yes, I can lay on my stomach comfortably. DO YOU HAVE ANY PAIN ISSUES?None. ASSESSMENT: Good candidate for po med. PLAN: Ativan 1-2mg per protocol. Guidelines for MRI Pre-Procedures Laboratory Studies: 1. Creatinine studies (GFR level needed) within 90 days of scan ??? 70 yo or older if they are getting contrast ??? 50 years and older if they are diabetic and getting contrast GFR Date of lab draw ( xx ) You must have a rental car ferry driver present when you check in. This patient has been informed that they require a rental car ferry driver to drive them home after this procedure. In the absence of a rental car ferry driver, IR will not be able to sedate for your scan. Pt verbalized understanding of these instructions during the pre-procedure education via phone. XX Yes Tebbetts of rental car ferry driver: Phone number PRIOR SCAN DATE/S SEDATION TYPE SUCCESSFUL Previous MRI at other hospital. 02/08/15 MRI Bilat Breast Ativan 2 mg po Yes PT STATED TO DISTRICT ASSOCIATE JUDGE THAT THE SEDATION WAS EFFECTIVE FOR SCAN: Y__X___N COMMENTS:___Passed documented in this encounter Plan of Treatment Upcoming Encounters Date Type Department Care Team (Late st Contact Info) Description 12/04/2024 11:00 AM EDT Office Visit [place] [address] Roddy Olson MD [facility] [place] [address] documented as of this encounter Procedures Procedure Name Priority Date/Time Associated Diagnosis Comments MRI BREAST WWO CONTRAST BILAT Routine 02/08/2015 11:51 AM EDT documented in this encounter Results * MRI breast bilateral with/WO contrast (02/08/2015 11:51 AM EDT) Anatomical Region Laterality Modality Breast Bilateral Magnetic Resonan ce 02/08/2015 11:5 1 AM EDT Narrative 02/10/2015 10:48 AM EDT MRI OF THE BILATERAL BREAST(S) CLINICAL INDICATION: ??Recently diagnosed left breast cancer, surgical planning TECHNIQUE: Multiplanar sequences were obtained pre- and post- gadolinium enhancement, to include SPGR weighted dynamic run-off and subtraction sequences obtained after the intravenous administration of 9 ccs of Gadovist. Computer algorithm analysis for lesion detection and kinetic contrast enhancement curve analysis was performed, using adicate timeads software. COMPARISON STUDIES: Mammography: 12/20/2012 Ultrasound: 01/12/2015, 12/16/2014 MRI: None Biopsy: 01/12/2015 BACKGROUND ENHANCEMENT PATTERN (first post gadolinium image) Mild (25-50% breast) AMOUNT OF FIBROGLANDULAR TISSUE: Heterogeneous fibroglandular tissue. The study was performed with adequate contrast enhancement. No significant abnormalities are seen in the chest wall or skin. FINDINGS: LEFT Breast: There is a round circumscribed homogeneously enhancing lesion within the upper outer breast with associated clip marker and washout enhancement, most consistent with patient's known malignancy (Lesion 1). There is another oval circumscribed heterogeneously enhancing lesion within the upper inner quadrant with washout enhancement, suspicious for malignancy (Lesion 2). There is a heterogeneously enhancing lobulated lesion with nonenhancing cystic components within the upper outer left breast with rapid washout enhancement characteristics. Given abnormal enhancement characteristics, recommend further evaluation with ultrasound, however likely benign focus of multiple cysts (Lesion 3). There are multiple sub-5 mm enhancing foci within the fibroglandular tissue along with multiple cysts most consistent with underlying symmetric fibrocystic change. There is a rapidly enhancing 8 mm round axillary lymph node (see series 7 image 102), suspicious for deven metastasis. Will likely require further characterization with ultrasound. LEFT Breast Lesions: Left breast lesion #: 1 BIRADS: 6: Biopsy proven malignancy 8 mm AP x7 mm transaxial x8 mm CC Upper outer quadrant ??1-2 O'Clock 6 cm from the nipple by ultrasound Mass/post surgical change: Shape: Round Margins: Circumscribed Enhancement: Homogenous Kinetics: Intensity: >100% above baseline. ??Initial upslope: Fast Delayed phase: Washout Recommendation: Definitive surgery. Left breast lesion #: 2 BIRADS: 4: Suspicious abnormality 12 mm AP x7 mm transaxial x11 mm CC Upper inner quadrant ??9-10 O'Clock 6 cm from the nipple by MRI Mass/post surgical change: Shape: Oval/lobulated Margins: Circumscribed Enhancement: Heterogeneous Kinetics: Intensity: >100% above baseline. ??Initial upslope: Fast Delayed phase: Washout Recommendation: Lesion seen previously on prior mammogram, recommend diagnostic ultrasound for further characterization, consider ultrasound-guided biopsy. Left breast lesion #: 3 BIRADS: 0: Incomplete assessment 11 mm AP x8 mm transaxial x11 mm CC Upper Outer quadrant ??1-2 O'Clock 4 cm from the nipple by MRI Mass/post surgical change: Shape: Oval/lobulated Margins: Circumscribed Enhancement: Heterogeneous with nonenhancing cystic component Kinetics: Intensity: >100% above baseline. ??Initial upslope: Fast Delayed phase: Washout Recommendation: Diagnostic bhupinder mammographic views and ultrasound Left axillary lymph node. BI-RADS 0, incomplete assessment. 8 mm. Left axilla. Left axillary lymph node without definite hi, and round morphology. Enhancement, rapid, washout. Recommendation: Ultrasound evaluation, consider biopsy. RIGHT Breast: There is a round homogeneously enhancing lesion within the upper inner quadrant of the right breast with associated washout enhancement, recommend additional evaluation, likely fibroadenoma. Similar to the left breast there are multiple small enhancing foci with cystic change within the fibroglandular tissue, most consistent with fibrocystic change. There is a T2 bright mildly enhancing lesion within the right lower outer breast (series 7 image 33), most consistent with benign lymph node. RIGHT Breast Lesions: Right breast lesion #: 1 BIRADS: 0: Incomplete assessment 7 mm AP x 6 mm transaxial x 8 mm CC Upper inner quadrant ??2:00 O'Clock 4 cm from the nipple by MRI Mass/post surgical change: Shape: Round Margins: Circumscribed Enhancement: Homogenous Kinetics: Intensity: >100% above baseline. ??Initial upslope: Fast Delayed phase: Washout Recommendation: Lesion seen on previous 2013 mammogram, likely fibroadenoma, however recommend further characterization with ultrasound. OTHER FINDINGS: There is a 9 mm T2 hyperintense lesion within the liver (series 2 image 3) with mild surrounding enhancement, most consistent with hemangioma. LEFT AXILLA: Visualization: Adequate: Adequate Suspicious Nodes: Yes Number: 1 Largest: 8 mm Recommendation: Further characterization with ultrasound RIGHT AXILLA: Visualization: Adequate: Adequate Suspicious Nodes: No Number: 0 Largest: 0 cm SUMMARY BIRADS LEFT ??Breast BI-RADS 4 (Suspicious for malignancy) RECOMMENDATION: Extra Views- Mammography and ultrasound 1. In regards to lesion 1, definitive management. 2. In regards to lesion 2, evaluate the ultrasound, consider ultrasound-guided biopsy. 3. In regards to lesion 3, bhupinder and ultrasound for additional characterization. 4. In regards to left axillary lymph node, ultrasound assessment, if cortical margins are enlarged, or concern, ultrasound-guided biopsy. RIGHT Breast BI-RADS 0 (Incomplete- Needs additional imaging) ??RECOMMENDATION: Extra Views- ultrasound 1. In regards to lesion 1, ultrasound to confirm likely fibroadenoma. This report was reviewed by Rigo Dalton at 02/10/2015 10:43 AM Film and interpretation reviewed by the attending Procedure Note Rigo Dalton MD - 02/10/2015 MRI OF THE BILATERAL BREAST(S) CLINICAL INDICATION: Recently diagnosed left breast cancer, surgicalplanning TECHNIQUE: Multiplanar sequences were obtained pre- and post- gadolinium enhancement,to include SPGR weighted dynamic run-off and subtraction sequences obtainedafter the intravenous administration of 9 ccs of Gadovist. Computer algorithmanalysis for lesion detection and kinetic contrast enhancement curve analysis was performed, using adicate timeads software. COMPARISON STUDIES: Mammography: 12/20/2012 Ultrasound: 01/12/2015, 12/16/2014 MRI: None Biopsy: 01/12/2015 BACKGROUND ENHANCEMENT PATTERN (first post gadolinium image) Mild(25-50% breast) AMOUNT OF FIBROGLANDULAR TISSUE: Heterogeneous fibroglandular tissue. The study was performed with adequate contrast enhancement. Nosignificant abnormalities are seen in the chest wall or skin. FINDINGS: LEFT Breast: There is a round circumscribed homogeneously enhancinglesion within the upper outer breast with associated clip marker and washout enhancement, most consistent with patient's known malignancy (Lesion 1).There is another oval circumscribed heterogeneously enhancing lesion within theupper inner quadrant with washout enhancement, suspicious for malignancy (Lesion2). There is a heterogeneously enhancing lobulated lesion with nonenhancingcystic components within the upper outer left breast with rapid washoutenhancement characteristics. Given abnormal enhancement characteristics, recommendfurther evaluation with ultrasound, however likely benign focus of multiplecysts (Lesion 3). There are multiple sub-5 mm enhancing foci within thefibroglandular tissue along with multiple cysts most consistent with underlyingsymmetric fibrocystic change. There is a rapidly enhancing 8 mm round axillary lymphnode (see series 7 image 102), suspicious for deven metastasis. Will likelyrequire further characterization with ultrasound. LEFT Breast Lesions: Left breast lesion #: 1 BIRADS: 6: Biopsy proven malignancy 8 mm AP x7 mm transaxial x8 mm CC Upper outer quadrant 1-2 O'Clock 6 cm from the nipple by ultrasound Mass/post surgical change: Shape: Round Margins: Circumscribed Enhancement: Homogenous Kinetics: Intensity: >100% above baseline. Initial upslope: Fast Delayedphase: Washout Recommendation: Definitive surgery. Left breast lesion #: 2 BIRADS: 4: Suspicious abnormality 12 mm AP x7 mm transaxial x11 mm CC Upper inner quadrant 9-10 O'Clock 6 cm from the nipple by MRI Mass/post surgical change: Shape: Oval/lobulated Margins: Circumscribed Enhancement: Heterogeneous Kinetics: Intensity: >100% above baseline. Initial upslope: Fast Delayedphase: Washout Recommendation: Lesion seen previously on prior mammogram, recommenddiagnostic ultrasound for further characterization, consider ultrasound-guidedbiopsy. Left breast lesion #: 3 BIRADS: 0: Incomplete assessment 11 mm AP x8 mm transaxial x11 mm CC Upper Outer quadrant 1-2 O'Clock 4 cm from the nipple by MRI Mass/post surgical change: Shape: Oval/lobulated Margins: Circumscribed Enhancement: Heterogeneous with nonenhancing cystic component Kinetics: Intensity: >100% above baseline. Initial upslope: Fast Delayedphase: Washout Recommendation: Diagnostic bhupinder mammographic views and ultrasound Left axillary lymph node. BI-RADS 0, incomplete assessment. 8 mm. Left axilla. Left axillary lymph node without definite hi, and round morphology. Enhancement, rapid, washout. Recommendation: Ultrasound evaluation, consider biopsy. RIGHT Breast: There is a round homogeneously enhancing lesion within theupper inner quadrant of the right breast with associated washout enhancement, recommend additional evaluation, likely fibroadenoma. Similar to the leftbreast there are multiple small enhancing foci with cystic change within the fibroglandular tissue, most consistent with fibrocystic change. There is aT2 bright mildly enhancing lesion within the right lower outer breast (series7 image 33), most consistent with benign lymph node. RIGHT Breast Lesions: Right breast lesion #: 1 BIRADS: 0: Incomplete assessment 7 mm AP x 6 mm transaxial x 8 mm CC Upper inner quadrant 2:00 O'Clock 4 cm from the nipple by MRI Mass/post surgical change: Shape: Round Margins: Circumscribed Enhancement: Homogenous Kinetics: Intensity: >100% above baseline. Initial upslope: Fast Delayedphase: Washout Recommendation: Lesion seen on previous 2013 mammogram, likelyfibroadenoma, however recommend further characterization with ultrasound. OTHER FINDINGS: There is a 9 mm T2 hyperintense lesion within the liver (series 2 image 3)with mild surrounding enhancement, most consistent with hemangioma. LEFT AXILLA: Visualization: Adequate: Adequate Suspicious Nodes: Yes Number: 1 Largest: 8 mm Recommendation: Further characterization with ultrasound RIGHT AXILLA: Visualization: Adequate: Adequate Suspicious Nodes: No Number: 0 Largest: 0 cm SUMMARY BIRADS LEFT Breast BI-RADS 4 (Suspicious for malignancy) RECOMMENDATION: ExtraViews- Mammography and ultrasound 1. In regards to lesion 1, definitive management. 2. In regards to lesion 2, evaluate the ultrasound, considerultrasound-guided biopsy. 3. In regards to lesion 3, bhupinder and ultrasound for additionalcharacterization. 4. In regards to left axillary lymph node, ultrasound assessment, ifcortical margins are enlarged, or concern, ultrasound-guided biopsy. RIGHT Breast BI-RADS 0 (Incomplete- Needs additional imaging)RECOMMENDATION: Extra Views- ultrasound 1. In regards to lesion 1, ultrasound to confirm likely fibroadenoma. This report was reviewed by Rigo Dalton at 02/10/2015 10:43 AM Film and interpretation reviewed by the attending Shiloh Cruz MD [facility] [place] documented in this encounter Visit Diagnoses Not on filedocumented in this encounter Administered Medications Inactive Administered Medications - up to 3 most recent administrations Medication Order MAR Action Action Date Dose Rate Site gadobutrol (GADAVIST) 1 mMol/mL injection 9 mL 9 mL, Intravenous, ONCE PRN, 1 dose, Starting on Sun02/08/15 at 1138, Until Sun02/08/15 at 1115, Per Protocol, Routine Given 02/08/2015 11:15 AM EDT 9 mLs LORazepam (ATIVAN) tablet 1 mg 1 mg, Oral, EVERY 30 MIN PRN, 2 doses, Starting on Sun02/08/15 at 0814, Until Sun02/08/15 at 1038, Anxiety, Angio/IR (Day of Procedure), Routine Given 02/08/2015 10:38 AM EDT 1 mg Given 02/08/2015 10:03 AM EDT 1 mg documented in this encounter Care Teams Mineralogy Teacher Relationship Specialty Start Date End Date Jewels Cramer APRN PCP - General 05/24/10 01/09/18 documented as of this encounter
--- OUTSIDE RECORDS SUMMARY | 2024-02-04 18:41 | XMS_ITS | Encounter Summary ---
Author Organization [facility] [place] [address] Care Team Providers Care Metal Polisher Name Role Phone Jewels Sorto APRN Primary Care Provider [phone] Reason for Referral * Consultation (Routine) - Closed Specialty Diagnoses / Procedures Referred By Saad escobar Referred To Contact General Surgery Diagnoses Breast cancer, left breast Hector Carey MD [address] [place] [id number] Emigdio Elena, DO [address] [place] [phone] Referral ID Status Reason Start Date Expiration Date V isits Requested Visits Authorized [id number] Closed Specialty Service Requested 03/15/2015 09/11/2015 1 1 Reason for Visit * Reason Comments Breast Cancer Encounter Details Date Type Department Care Team (Late st Contact Info) Description 03/15/2015 3:00 PM EDT Office Visit Hematology/Oncology at [address] [phone] Hector Carey MD [address] [place] [phone] Breast cancer, female, unspecified laterality; Breast cancer, left breast Discharge Disposition: Home [...] Sign Reading Time Taken Comments Blood Pressure 118/70 03/15/2015 2:18 PM EDT Pulse 76 03/15/2015 2:18 PM EDT Temperature 36.6 ??C (97.9 ??F) 03/15/2015 2:18 PM ED T Respiratory Rate 16 03/15/2015 2:18 PM EDT Oxygen Saturation 97% 03/15/2015 2:18 PM EDT Inhaled Oxygen Concentration - - Weight 90.7 kg (200 lb) 03/15/2015 2:18 PM EDT Height 170 cm (5' 6.93) 03/15/2015 2:18 PM EDT Body Mass Index 31.39 03/15/2015 2:18 PM EDT documented in this encounter Progress Notes * Hector Carey MD - 03/15/2015 3:33 PM EDT Images from the original note were not included. 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 The tumor was 0.7 cm, low-grade, ER/RI positive, with 1 of 3 sentinel positive nodes. HER-2 was negative. Subjective: Octavio comes in today for medical oncology consultation at the request of Dr. Cruz in regards to her recently diagnosed stage II breast cancer. In talking to Octavio, she notes she had a mammogram with a subtle finding in the left breast. After closer review, the radiologist decided it needed to be biopsied and it was positive for a low-grade infiltrating ductal carcinoma. Subsequently the patient had some staging with an MRI study. There was some concern about a left axillary lymph node and also a lesion in the right breast. She underwent a lumpectomy on the left side along with an axillary node dissection and a biopsy on the right and surprisingly she had a 0.7-cm low-grade tumor but it had 1 of 3 sentinel nodes positive. The tumor was ER/RI positive and HER2/rogers negative. As such, as stages as a stage IIA. She did get a heads up as to the high probability that we would be recommending chemotherapy. She has been seen by Radiation Therapy and we spent some time talking about the treatment of breast cancer, the integration of radiation chemotherapy, and hormone blockers, and why those are recommended. I believe all of her questions were answered today. Past Medical History Diagnosis Date ??? Breast cancer, left breast 2014 Past Surgical History Procedure Laterality Date ??? Pro excise breast les w xray marker Left 02/16/2015 EXCISION LESION, BREAST W/ PREOP.MARKER (NEEDLE LOC.) performed by Keshia Cruz MD at [facility] ??? Pro bx/remv, lymph node, deep axill Left 02/16/2015 BIOPSY OR EXCISION OF LYMPH NODE(S), OPEN, DEEP AXILLARY NODE(S) performed by Keshia Cruz MD at [facility] ??? Pro identify sentinel node Left 02/16/2015 SENTINEL NODE INJECTION performed by Keshia Cruz MD at [facility] ??? Left 02/16/2015 MODIFIER WITH NEEDLE LOC. performed by Keshia Cruz MD at [facility] ??? Left 02/16/2015 MODIFIER SENTINEL NODE EXCISION performed by Kesiha Cruz MD at [facility] No Known Allergies Medications 03/15/15 1522 Medication Sig Taking? hydrochlorothiazide (HYDRODIURIL) 25 mg [...] ibuprofen (ADVIL;MOTRIN) 800 mg Tablet 600 mg. Family History Problem Relation Age of Onset ??? Breast Cancer Neg Hx ??? Ovarian Cancer Neg Hx History Social History ??? Marital Status: Spouse Name: N/A Number of Children: N/A ??? Years of Education: N/A Occupational History ??? Not on file. Social History Main Topics ??? Smoking status: Former Smoker -- 1.00 packs/day Types: Cigarettes ??? Smokeless tobacco: Never Used Comment: 2 months ago quit ??? Alcohol Use: No ??? Drug Use: No ??? Sexual Activity: Not on file Other Topics Concern ??? Not on file Social History Narrative The patient is currently on disability from her breast cancer. 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 Neurological: Negative. Hematological: Negative for adenopathy. Head: Normocephalic, without obvious abnormality, atraumatic Eyes: [...] supraclavicular, and axillary nodes normal Neurologic: Normal MRI OF THE BILATERAL BREAST(S) CLINICAL INDICATION: Recently diagnosed left breast cancer, surgical planning TECHNIQUE: Multiplanar sequences were obtained pre- and post- gadolinium enhancement, to include SPGR weighted dynamic run-off and subtraction sequences obtained after the intravenous administration of 9 ccs of Gadovist. Computer algorithm analysis for lesion detection and kinetic contrast enhancement curve analysis was performed, using Exepron software. COMPARISON STUDIES: Mammography: 12/20/2012 Ultrasound: 01/12/2015, [...] Intensity: >100% above baseline. Initial upslope: Fast Delayed phase: Washout Recommendation: Definitive surgery. Left breast lesion #: 2 BIRADS: 4: Suspicious abnormality 12 mm AP x7 mm transaxial x11 mm CC Upper inner quadrant 9-10 O'Clock 6 cm from the nipple by MRI Mass/post surgical change: Shape: Oval/lobulated Margins: Circumscribed Enhancement: Heterogeneous Kinetics: Intensity: >100% above baseline. Initial upslope: Fast Delayed phase: Washout Recommendation: Lesion [...] Intensity: >100% above baseline. Initial upslope: Fast Delayed phase: Washout Recommendation: Diagnostic [...] Intensity: >100% above baseline. Initial upslope: Fast Delayed phase: Washout Recommendation: Lesion [...] Breast BI-RADS 4 (Suspicious for malignancy) RECOMMENDATION: Extra [...] Breast BI-RADS 0 (Incomplete- Needs additional imaging) RECOMMENDATION: Extra Views- ultrasound 1. In regards to lesion 1, ultrasound to confirm likely fibroadenoma. EXAMINATION: CT Chest With Contrast CLINICAL HISTORY: back pain,cough/current smoker/breast cancer rule out malignantcy TECHNIQUE: Helical CT of the chest was performed following intravenous administration of 60ml of Ominpaque 350. Multiplanar reformatted images were generated. COMPARISON: None FINDINGS: Lungs and airways: Bilateral Upper lobe moderate centrilobular emphysematous changes. No pulmonary nodules. No areas of airspace consolidation. Pleura and pericardium: No pleural effusions. No pericardial effusion. Heart and vasculature: Grossly unremarkable. Mediastinum and hilar structures: No mediastinal or hilar lymphadenopathy. No axillary adenopathy. Limited views of the upper abdomen are remarkable for an 8 mm hypodense focus seen in the left lobe of the liver, likely a small cyst or hemangioma. No suspicious osseous lesions. Scattered degenerative changes of the thoracic spine. IMPRESSION Impression: Bilateral centrilobular emphysematous disease. No pulmonary nodules [facility] Provider: KESHIA CRUZ Pt. Name: OCTAVIO HOOKS [facility] #: [id number] Pt. Col Date: 02/16/2015 /Sex: 1955,(59 years),Female Rec Date: 02/16/2015 LOC: [facility] SURGICAL PATHOLOGY DIAGNOSIS CORRECTED REPORT (see Discussion) Specimen (s): A - Left partial mastectomy B - Left axillary sentinel nodes Histologic Type: Invasive ductal carcinoma Tumor Grade: Low (High, Intermediate, Low) Bhjeso-Lixld-Yaeqsleyul Score: 5 Tubular Differentiation: 1 Mitotic Rate: [...] receptors, and FISH performed on prior bx [id number] - see separate report. pTNM: ---pT1b N1a (AJCC, 7th edition, 2010) C - Left breast lateral margin, re-excsion: Fibrocystic changes with adenosis, columnar cell hyperplasia and usual ductal hyperplasia. SURGICAL PATHOLOGY ---Pathologic Diagnosis--- Needle biopsies: Left breast, lesion 1 Diagnosis: Invasive ductal carcinoma, low to intermediate grade Microcalcifications: Associated with invasive carcinoma On A1 - ER immunoreactivity: Positive > 90% cancer cells with immunostaining Stain Intensity Strong RI immunoreactivity: Positive 11-90% cancer cells with immunostaining MOLECULAR GENETIC STUDIES ---REPORT OF DNA ANALYSIS--- TEST: HER2(ERBB2)FISH, Breast METHOD: Fluorescence in situ hybridization (FISH) with chromosome 17 centromere (17p11.1-q11.1) probe and a locus specific probe for the HER2 gene locus (17q11.2-q12). SAMPLE ANALYZED: A1-7 RESULT: NEGATIVE FOR HER2/ROGERS AMPLIFICATION TOTAL # SIGNALS/TOTAL # NUCLEI COUNTED FOR HER2 PROBE = 89 TOTAL # SIGNALS/TOTAL # NUCLEI COUNTED FOR CEP-17 PROBE = 84 HER2 TO CEP-17 RATIO = 1.1 (NORMAL RANGE <2.0) TOTAL # NUCLEI COUNTED = 40 Assessment/Plan: Octavio has a stage IIA adenocarcinoma of the breast. Using Adjuvant! Online with the node positivity she has an 8.6% benefit from chemotherapy with Adriamycin and Cytoxan followed by Taxol. She has an additional 12.7% benefit with hormone blockers. Overall, she has near and 85% cure rate if she takes adjuvant chemotherapy and hormone therapy. We went over the reasons for our recommendation along with the drugs and chemotherapy recommended. We went over potential risks and side effects in detail. We talked about the advisability of having a port placed, of checking an echocardiogram to make sure she does not have any cardiac toxicity at the onset. I believe all of her questions were answered and she left with a good understanding of things. Nursing also did chemotherapy teaching today and she was given written literature. Plans will be to get an echocardiogram, a port, and check lab, and get her started in the next couple of weeks on treatment. She does give consent for treatment. She will call if there are any questions or problems in the interim. We will call in some Compazine as an antiemetic for her to have on hand. * Hector Carey MD - 03/15/2015 3:32 PM EDT CONSENT FOR TREATMENT 1. I have informed the patient that she has been diagnosed with breast cancer and that treatment with chemotherapy and other drugs to treat the cancer is recommended. Specifically, I have recommendedthe following therapy: Dose Dense AC followed by 12 weekly Taxol chemotherapies 2. I have informed the patient about the medical condition, the nature and purpose of the treatment, expected benefits, and related risks, including that this treatment may have significant side effects and that some of the side effects can be life threatening. The risks associated with the chemotherapy may include, but are not limited to, those listed below: * Nausea & vomiting * Hair loss * Anemia/Low red blood cell count * Tiredness * Allergic reactions * Infection with low white blood cell count * Increased risk of bleeding * Mouth sores * Constipation &/or diarrhea * Organ & Tissue Damage * Infertility * Another cancer &/or 3. The goal(s) of the chemotherapy has also been explained to the patient and includes: [ x ] Cure my diagnosis [ ] Slow the growth or progression of my disease [ ] Decrease the risk of recurrence of my disease [ ] Prepare my blood prior to transplant [ ] Improve my quality of life by controlling symptoms of my disease 4. Other reasonable treatments or options, including the option to not pursue chemotherapy, were discussed. The patient understands that he/she may stop this treatment at any time. 5. I have informed the patient that the treatment may be harmful to an unborn child and that during chemotherapy treatment should be avoided. 6. The patient had the opportunity to ask questions about this treatment. All questions were addressed. The patient consents to the recommended treatment. * Octavio Cabrera RN - 03/15/2015 2:23 PM EDT MEDICAL ONCOLOGY INITIAL NURSING ASSESSMENT ADVANCE DIRECTIVES: In [facility] [ ] Has documents [x ] Will bring in [ ] IF NO: Advance Directive pamphlet provided : Referral to Care Management : PRESENTING SYSTEMS and PATHOLOGY: annual mammogram REVIEW OF SYSTEMS:see Aurelio's note Prior Radiotherapy: no[x ] Yes[ ]Site Date Facility Prior Chemotherapy: no[ x ] Yes[ ] Drug: Oncologist- LastTreatment: NO: YES: Claustrophobia or requires sedation for MRIs x Allergy to CT or MRI contrast agent or iodine or shellfish x Diabetic and on metformin x Metal in body, implanted device, worked with metal, body piercings,braces X on dentures Dentures or hearing device No hearing devices Dentures upper and lower Pacemaker x Difficulty breathing while lying flat x Kidney problems/creatinine x Balance difficulty: [ x]no [ ]yes At risk for fall: [ x ] no [ ] yes If yes, actions implemented to prevent fall. Patient/family instructed to avoid independent ambulation. Use wheelchair and ask for assistance of staff while in the clinic. ADL [ x ] no limits [ ] needs dressing assistance [ ] needs meal assistance Assistive device:[ x ]none [ ]cane [ ]walker [ ]wheelchair [ ]other: explain PAIN ASSESSMENT: [0 ] out of 10 Location: Description: [ ] Dull [ ] Sharp [ ] Burning [ ] Throbbing [ ] Radiating [ ] Continuous [ ]Intermittent Aggravating Factors: [ ] Movement [ ] Position [ ]Immobility [ ]Other Alleviating Factors: [ ]Medication [ ] Positioning [ ] Other Current Pain Management Plan: [ ]Satisfied [ ] Not satisfied SOCIAL ASSESSMENT: See ED[facility] social assessment information entered. 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 TEACHING: __x NCI ???Chemotherapy and You?? and folder given __x Specific chemotherapy literature provided and reviewed with patient documented in this encounter Plan of Treatment Upcoming Encounters Date Type Department Care Team (Late st Contact Info) Description 12/04/2024 11:00 AM EDT Office [place] [phone] Roddy Olson MD [facility] [place] [address] Scheduled Referrals Name Type Priority Associated Diagnoses Orde r Schedule Referral to General Surgery Outpatient Referral Routine Breast cancer, left breast Ordered: 03/15/2015 documented as of this encounter Procedures Procedure Name Priority Date/Time Associated Diagnosis Comments IMPLANTABLE DEVICES SCAN 015 12:00 AM EDT documented in this encounter Results * SCAN DOC: IMPLANTABLE DEVICES (03/22/2015 12:00 AM EDT) Scanning Provider MEDIA MGR SCAN EXT O RDR/RSLT documented in this encounter Visit Diagnoses Diagnosis Breast cancer, female, unspecified laterality Breast cancer, left breast Malignant neoplasm of breast (female), unspecified site documented in this encounter Care Teams Metal Polisher Relationship Specialty Start Date End Date Jewels Sorto APRN PCP - General 05/24/10 01/09/18 documented as of this encounter
--- OUTSIDE RECORDS SUMMARY | 2024-02-04 18:41 | XMS_ITS | Encounter Summary ---
Author Organization [facility] [place] [address] Care Team Providers Care Slitter Creaser Slotter Operator Name Role Phone Jewels Sorto APRN Primary Care Provider [phone] Reason for Visit * Reason Comments Breast Cancer Encounter Details Date Type Department Care Team (Late st Contact Info) Description 04/29/2015 8:00 AM EDT Office Visit Hematology/Oncology at [address] [phone] Hector Carey MD [address] [place] [address] Malignant neoplasm of female breast, left [...] Sign Reading Time Taken Comments Blood Pressure 112/68 04/29/2015 7:51 AM EDT Pulse 80 04/29/2015 7:51 AM EDT Temperature 36.6 ??C (97.9 ??F) 04/29/2015 7:51 AM ED T Respiratory Rate 16 04/29/2015 7:51 AM EDT Oxygen Saturation 99% 04/29/2015 7:51 AM EDT Inhaled Oxygen Concentration - - Weight 91.6 kg (202 lb) 04/29/2015 7:51 AM EDT Height 170 cm (5' 6.93) 04/29/2015 7:51 AM EDT Body Mass Index 31.7 04/29/2015 7:51 AM EDT documented in this encounter Progress Notes * Hector Carey MD - 04/29/2015 8:20 AM EDT Diagnosis: 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 The tumor was 0.7 cm, low-grade, ER/[place] positive, with 1 of 3 sentinel positive nodes. HER-2 was negative. Subjective: Kelley comes in today for cycle three of four planned dose dense Adriamycin and Cytoxan infusions in the adjuvant treatment of her breast cancer. This past two weeks has gone reasonably well. She had a little bit of mouth soreness. Her hair loss is now total. She also developed some shingles and was put on some Valtrex. With that, the scant rash on her right flank (T12, L1, right) has dried up and scabbed over. There are only about four or five lesions present. She had a little bit of pain with that and that has stopped. Her Valtrex finishes today. Otherwise, review of systems is negative with no significant nausea or vomiting and well controlled constipation post chemo. Past medical history and social history were reviewed from one week ago and unchanged. Current Outpatient Prescriptions on File Prior to Visit Medication Sig Dispense Refill ??? valACYclovir (VALTREX) 1 gram Tablet Take 1 tablet by mouth 2 times daily. 14 tablet 0 ??? 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 Hematological: Negative for adenopathy. BP 112/68 mmHg Pulse 80 Temp(Src) 36.6 ??C (97.9 ??F) (Oral) Resp 16 Ht 170 cm (5' 6.93) Wt 91.627 kg (202 lb) BMI 31.70 kg/m2 SpO2 99% Head: Normocephalic, without obvious [...] laboratory today shows a white count of 8.31, a hemoglobin of 11.5, hematocrit 33.3, platelet count of 150,000. CMP shows normal electrolytes, creatinine of 0.77, and ALP of 114, and normal liver tests and electrolytes. Assessment/Plan: Kelley is fine for her third cycle of chemotherapy today. Her counts are doing well and with the Neulasta are recovering on time. She does have some chemotherapy associated anemia, which we will continue to follow. Her shingles have markedly improved and she will be finishing her Valtrex. She had a bit of stomatitis and fortunately that has resolved but is aware of how to manage that. Chemotherapy associated nausea and vomiting is controlled and she is also keeping tabs on her constipation. Followup is arranged for two weeks for her final AC chemotherapy and she will start Taxol after that. We again talked about risks and side effects of the new chemotherapy in anticipation of that. We will arrange for a port draw CBC and CMP prior to that visit and she will call if there are issues or problems in the interim. documented in this encounter Plan of Treatment Upcoming Encounters Date Type Department Care Team (Late st Contact Info) Description 12/04/2024 11:00 AM EDT Office [place] [address] Roddy Olson MD [facility] [place] [address] documented as of this encounter Procedures Procedure Name Priority Date/Time Associated Diagnosis Comments LAB SCAN 04/29/2015 12:00 AM EDT documented in this encounter Results * SCAN DOC: LAB (04/29/2015 12:00 AM EDT) Scanning Provider MEDIA MGR SCAN EXT O RDR/RSLT documented in this encounter Visit Diagnoses Diagnosis Malignant neoplasm of female breast, left documented in this encounter Care Teams Slitter Creaser Slotter Operator Relationship Specialty Start Date End Date Jewels Sorto APRN PCP - General 05/24/10 01/09/18 documented as of this encounter
--- OUTSIDE RECORDS SUMMARY | 2024-02-04 18:41 | XMS_ITS | Encounter Summary ---
Author Organization [facility] [place] [address] Care Team Providers Care Chief Writer Name Role Phone Jewels Sorto APRN Primary Care Provider [phone] Encounter Details Date Type Department Care Team (Late st Contact Info) Description 02/11/2015 Telephone Hematology [place] [address] Mariajose Javed RN Social History Tobacco Use Types Packs/Day Years Used Date Smoking Tobacco: Every Day Cigarettes Smokeless Tobacco: Never Sex and Gender Information Value Date Recorded Sex Assigned at Not on file Gender Identity Not on file Sexual Orientation Not on file documented as of this encounter Miscellaneous Notes * Telephone Encounter - Mariajose Javed RN - 02/11/2015 8:43 AM EDT Comprehensive Breast Program Note Kelley Jensen is a 59 y.o. female with left breast cancer scheduled for partial mastecomty(ies) on02/16/15. Per Dr. Cruz's request, I contacted Kelley to discuss follow up apt. In radiology 02/12 at 9:30 (from 02/08 MRI, left and right breast findings). Kelley is in agreement with plan for further work up on 02/12. She will be in radiology at 9:30AM. documented in this encounter Plan of Treatment Upcoming Encounters Date Type Department Care Team (Late st Contact Info) Description 12/04/2024 11:00 AM EDT Office [place] [address] Roddy Olson MD [facility] [place] [address] documented as of this encounter Visit Diagnoses Not on filedocumented in this encounter Care Teams Chief Writer Relationship Specialty Start Date End Date Jewels Sorto APRN PCP - General 05/24/10 01/09/18 documented as of this encounter
--- OUTSIDE RECORDS SUMMARY | 2024-02-04 18:41 | XMS_ITS | Encounter Summary ---
Author Organization [facility] Address [facility] [place] [address] Care Team Providers Care Butter Liquefier Name Role Phone [employer] Shruthi BAUM Primary Care Provider [phone] Encounter Details Date Type Department Care Team (Late st Contact Info) Description 02/16/2015 12:38 PM EDT - 02/16/2015 2:53 PM EDT Surgery [place] [id number] Keshia Cruz MD [facility] [place] [address] EXCISION LESION, BREAST W/ PREOP.MARKER (NEEDLE LOC.) (WRVU 6.69) Social History Tobacco Use Types Packs/Day Years Used Date Smoking Tobacco: Every Day Cigarettes Smokeless Tobacco: Never Sex and Gender Information Value Date Recorded Sex Assigned at Not on file Gender Identity Not on file Sexual Orientation Not on file documented as of this encounter Last Filed Vital Signs Vital Sign Reading Time Taken Comments Blood Pressure 125/81 02/16/2015 2:39 PM EDT Pulse 80 02/16/2015 2:39 PM EDT Temperature 36 ??C (96.8 ??F) 02/16/2015 2:39 PM EDT Respiratory Rate 18 02/16/2015 2:39 PM EDT Oxygen Saturation 100% 02/16/2015 2:51 PM EDT Inhaled Oxygen Concentration - - Weight 86.2 kg (190 lb) 02/16/2015 10:30 AM EDT Height 167.6 cm (5' 5.98) 02/16/2015 10:30 AM E DT Body Mass Index 30.68 02/16/2015 10:30 AM EDT documented in this encounter Discharge Instructions * Discharge Instructions* Keshia Cruz MD - 02/16/2015 12:24 PM EDT General Anesthesia Discharge Instructions Go home and rest. You may be sleepy for several hours. Take it easy as sudden position changes may cause nausea and/or dizziness. Use caution on stairs. Follow a light to regular diet as tolerated today. If nausea occurs, start with clear liquids, and progress slowly to a regular diet. Do not drive, operate machinery, drink alcoholic beverages or make any legal decisions after havinggeneral anesthesia. The medications given change your reaction time and alter your judgement. IV site -- slight redness is normal, you can use warm compresses. If tenderness and redness increases or foul drainage occurs, please contact your M.D. Patients who have had endotracheal tubes/LMA (tubes used by the anesthesia staff to ensure a safe airway during your operation) may have a sore throat. This is normal and cold liquids or soothing lozengers will help ease this discomfort. Narcotic pain medications can cause constipation, please ask the surgeons office what they recommend for prevention of this. Some non-pharmaceutical means of constipation prevention include increasing intake of fluids, eating more fruits and vegetables as well as fruit juices. If you are uncomfortable and/or unable to urinate within 8 hours of discharge and it is before 5 pm, call your physician. If it is after 5pm go to the closest emergency room or call the hospital electronic pagination system operator at [phone] and ask for physician certified personal finance counselor covering for your physician. Questions or problems after 5pm or on a weekend: Call the [facility] electronic pagination system operator at and ask for the physician certified personal finance counselor covering for your doctor. Okay to shower 24 hours Activity as tolerated Call [phone] with any questions steristrips will fall off 7-14 days Do not soak incision for 2 weeks Will call with pathology results in 5-7 days Ice pack to breast as needed Oxycodone 1-2 tablets every 4 hours as needed Stool softeners as needed while on oxycodone Okay to use tylenol and/or ibuprofen as needed for pain documented in this encounter Medications at Time [...] 01/28/2015 03/01/2015 documented as of this encounter H&P Notes * Keshia Cruz MD - 02/15/2015 3:37 PM EDT HPI Octavio presents today with her daughter and . She is seen in surgical consultation at the request of Dr. Gaxiola. She presents to discuss newly diagnosed left breast cancer. Octavio presented for screening mammography. This revealed a concerning lesion in the upper, outer left breast. Additional imaging including mammogram and ultrasound confirmed a solid 8mm lesion. There was also a question of an axillary node. 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 Octavio denies any breast masses, skin change or nipple discharge. She has no adenopathy or lymphedema. MRI was attempted but aborted for technical reasons. Repeat imaging is pending. FH: brother with cystic adenoid carcinoma of the leg. No breast or ovarian cancer SH: with 2 daughters. 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 This is a source of stress. + smoker interested in cessation. Review of Systems Constitutional: Positive for fatigue. HENT: Negative. Eyes: Negative. Respiratory: Positive for cough (dry chronic cough). Cardiovascular: Negative. Gastrointestinal: Negative. Endocrine: Negative. Genitourinary: Negative. Musculoskeletal: Positive for back pain. Skin: Negative. Allergic/Immunologic: Negative. Neurological: Negative. Hematological: Negative. Psychiatric/Behavioral: Negative. Objective: Physical Exam Constitutional: She is oriented to person, place, and time. She appears well- developed and well-nourished. Eyes: EOM are normal. Neck: Normal range of motion. Cardiovascular: Normal rate and regular rhythm. Pulmonary/Chest: Effort normal and breath sounds normal. Right breast exhibits no inverted nipple, no mass, no nipple discharge, no skin change and no tenderness. Left breast exhibits no inverted nipple, no mass, no nipple discharge, no skin change and no tenderness. Breasts are symmetrical. Abdominal: Soft. Musculoskeletal: Normal range of motion. Lymphadenopathy: She has no cervical adenopathy. She has no axillary adenopathy. Right: No supraclavicular adenopathy present. Left: No supraclavicular adenopathy present. Neurological: She is alert and oriented to person, place, and time. Skin: Skin is warm and dry. Psychiatric: She has a normal mood and affect. Mammogram and u/s as in HPI. I have reviewed CBC and LFTs wnl Assessment and Plan: 59 yo female with radiographic stage I IDC of the left breast.. Octavio has some back pain and pulmonary symptoms- will plan ct of chest to rule out underlying lung cancer and/or vertebral metastasis. We then discussed options for surgery. Octavio is aware that mastectomy and lumpectomy with radiationoffer the same overall survival and she is a candidate for lumpectomy. She is not at all interestedin mastectomy and we did not discuss this further. I will call Octavio with the results of the MRI and if no evidence of additional disease on the left, we will proceed with breast conservation. If anyissues on the right, we will work this up and plan bilateral breast conservation if necessary. We also discussed the technique and rationale for sentinel node biopsy and we will proceed with this as well. We briefly touched upon systemic adjuvant therapy.Octavio understands that she will meet with medicaland radiation oncology post operatively. She is aware that chemotherapy may be indicated and understands that oncotype DX testing may be recommended if she is node negative (given that she is ER/UT+ and HER-). She is also aware that both radiation and endocrine therapy will be recommended. She would like to undergo radiation in [facility]. Risks of surgery including bleeding, infection, need for additional surgery and lymphedema were discussed and consent was obtained. CT scan of lungs was negative. MRI revealed additional lesions in both breasts which are fibroadenomas. The single node identifiedon mammogram is suspicious on MRI. Plan NLOC excision of this node at the time of NLOC partial mastectomy (in addition to sentinel node excision). Stable for OR documented in this encounter Miscellaneous Notes * Op Note - Keshia Cruz MD - 02/16/2015 2:23 PM EDT [facility] [place] Patient Name: Octavio Jensen : [id number] MR#: [id number] Case Date: 02/16/2015 Surgeon: Surgeon(s) and Role: * Keshia Cruz MD - Primary * Darci Alaniz MD - Resident-Surgeon Gigi Preoperative diagnosis: BREAST CANCER Postoperative diagnosis: BREAST CANCER Procedure(s): EXCISION LESION, BREAST W/ PREOP.MARKER (NEEDLE LOC.) BIOPSY OR EXCISION OF LYMPH NODE(S), OPEN, DEEP AXILLARY NODE(S) SENTINEL NODE INJECTION MODIFIER WITH NEEDLE LOC. MODIFIER SENTINEL NODE EXCISION Anesthesia: General with LMA Estimated Blood Loss: 14cc Specimens removed during surgery: left partial mastectomy, left axillary sentinel nodes, left breast lateral margin Surgical Closure: Primary Closure - closure of [...] details pertinent to this patient.) HPI/Surgical Indications: 59 yo female with left breast cancer and a single suspicious node on pre-operative imaging. Plan partial mastectomy with wire localization of breast as well as suspicious node and sentinel node excision. Procedure Description: Octavio was brought to radiology for wire localization in the left breast as well as axillary node and technetium injection. She was then admitted through Same- Day Surgery. She was then brought to the Operating Room and laid supine on the operating table. Sedatives were administered intravenously andan LMA was placed. The left breast was prepped and draped in sterile fashion. Time-out confirmed the patient's identity, the correct surgical site, and the administration of prophylactic antibiotics.Once the time out had been confirmed, attention was turned to the left breast. Here an incision wasmade at the superior areolar border. A flap was elevated cranially and the wire was brought into the wound. A circumferential core of tissue was widely excised inclusive of the underlying fascia. The tissue was inked on the anatomic margins and sent to Radiology where the lesion and clip were confirmed to be in the surgical specimen. Due to gross proximity, the lateral margin was re-excised. Attention was then turned to the axilla. Through the same incision, the clavipectoral fascia was opened. The localizing wire was again brought into the wound. The wired node was identified and excised. Of note, this was not radioactive. Three sentinel node were identified and excised. The had an exvivo count of 287. Remaining count within the axilla was 27. There was not palpable adenopathy excepting the suspicious wired node. Satisfied that all sentinel nodes were removed, the wound was irrigated and hemostasis achieved. Tissue re- arrangement was undertaken to close the space (biopsy cavity clips were placed for radiation oncology prior to closure). The re-arranged tissue measured 7cm x 6cm. The wound was then closed in layers. Attestation: Case Date: 02/16/2015 I was present and I participated during the entire procedure (does not need to include opening and closing). KESHIA CRUZ MD 02/16/2015 documented in this encounter Plan of Treatment Upcoming Encounters Date Type Department Care Team (Late st Contact Info) Description 12/04/2024 11:00 AM EDT Office [place] [address] Roddy Olson MD [facility] [place] [address] documented as of this encounter Procedures Procedure Name Priority Date/Time Associated Diagnosis Comments SPECIMEN TO PATHOLOGY Routine 02/16/2015 2:17 PM EDT SPECIMEN TO PATHOLOGY Routine 02/16/2015 1:56 PM EDT SPECIMEN TO PATHOLOGY Routine 02/16/2015 1:31 PM EDT SURGICAL PATHOLOGY REPORT Routine 02/16/2015 1:30 PM EDT MODIFIER SENTINEL NODE EXCISION Yes 02/16/2015 12:55 PM EDT BREAST CANCER MODIFIER WITH NEEDLE LOC., LESION #1 Yes 02/16/2015 12:55 PM EDT BREAST CANCER SENTINEL NODE INJECTION (WRVU 0.65) Yes 02/16/2015 12:55 PM EDT BREAST CANCER BIOPSY OR EXCISION OF LYMPH NODE(S), OPEN, DEEP AXILLARY NODE(S) (WRVU 6.43) Yes 02/16/2015 12:55 PM EDT BREAST CANCER EXCISION LESION, BREAST W/ PREOP.MARKER (NEEDLE LOC.) (WRVU 6.69) Yes 02/16/2015 12:55 PM EDT BREAST CANCER documented in this encounter Results * Specimen to Pathology (surgical or derm) (02/16/2015 2:17 PM EDT) AP Specimen 02/16/2015 2:17 PM EDT 02/16/2015 2:17 PM EDT [facility]ative [facility] - 02/16/2015 2:17 PM EDT Specimen requisition ordered. ??Separate Pathology report to follow Keshia Cruz MD PATHOLOGY/CYTOLOGY ORDERABLES [facility] * Specimen to Pathology (surgical or derm) (02/16/2015 1:56 PM EDT) AP Specimen 02/16/2015 1:56 PM EDT 02/16/2015 1:56 PM EDT Narrative [facility] - 02/16/2015 1:56 PM EDT Specimen requisition ordered. ??Separate Pathology report to follow Keshia Cruz MD PATHOLOGY/CYTOLOGY ORDERABLES Performing Organization Address [facility] Co de Phone Number [facility] * Specimen to Pathology (surgical or derm) (02/16/2015 1:31 PM EDT) AP Specimen 02/16/2015 1:31 PM EDT 02/16/2015 1:31 PM EDT [facility] - 02/16/2015 1:31 PM EDT Specimen requisition ordered. ??Separate Pathology report to follow Keshia Cruz MD PATHOLOGY/CYTOLOGY ORDERABLES Performing Organization Address [facility] de Phone Number [facility] * Surgical Pathology Report (02/16/2015 1:30 PM EDT) Final Diagnosis ? [facility] ? Provider: ?? KESHIA CRUZ ??Pt. Name: ?? OCTAVIO JENSEN ? Acc #: ?[id number] ?Pt. ? Col Date: ?? 02/16/2015 ? /Sex: ?1955,(59 years),Female ? Rec Date: ?? 02/16/2015 ? LOC: ?[facility] ? SURGICAL PATHOLOGY ? DIAGNOSIS ? CORRECTED REPORT (see Discussion) ? Specimen (s): ??A - Left partial mastectomy ?B - Left axillary sentinel nodes ? Histologic Type: Invasive ductal carcinoma ? Tumor Grade: ??Low (High, Intermediate, Low) ? Wingmw-Qjlmq-Ljumljsmo n Score: ??5 ?Tubular Differentiation: ?? 1 ?Mitotic Rate: ?? 1 ?Nuclear Grade: ??3 ? Tumor Size: ?? 0.7 cm (maximum diameter) ? In Situ Histologic Type: DCIS ? Extensive/Minor Component: ??Minor ?Grade: ?? Intermediate (High, Intermediate, Low) ?Necrosis: ??Absent (Present / Absent) ?Pattern(s): ??Papillary ? Microcalcifications: ??Associated with DCIS and IDC ? Angiolymphatic Invasion: Not identified ? Perineural invasion: Not identified ? Nipple involvement: ?? NA ? Skin/Skeletal muscle invasion: NA ? Other Findings: Healing biopsy site ? Resection Margins (RM): ?Invasive Ca: ? Involved, focally at yellow/lateral RM (A3) ? Distance from closest RM(s): ??0.45 cm to next nearest black/deep RM ?DCIS: ?Uninvolved (involved/uninvolved) ? Distance from closest RM(s): ??0.2 cm to yellow/lateral ? Axillary lymph nodes: ? Total no. nodes sampled: ? 3 ? No. non-sentinel nodes: ?0 ??(Specimen _, block(s)_) ? No. positive for carcinoma: ??NA ??(H&E stain only) ? No. sentinel nodes: ??3 ??(Specimen B, blocks(s)1-2)(H&E only) ?No. with metastases 0.02 cm or less (isolated tumor cells) 0 ?No. with metastases >0.02 cm to 0.2 cm (micrometastases) 0 ?No. with metastases >0.2 cm (macrometastases) 1 ? Total no. nodes negative for carcinoma: ??2 ? [facility] ? Provider: ?? KESHIA CRUZ ??Pt. Name: ?? OCTAVIO JENSEN ? Acc #: ?[id number] ?Pt. ? Col Date: ?? 02/16/2015 ? /Sex: ?1955,(59 years),Female ? Rec Date: ?? 02/16/2015 ? [facility] ? SURGICAL PATHOLOGY ? For positive nodes: ? Largest deven deposit ?? 1.0 cm ? Extranodal extension ?No ? Estrogen/Progestin receptors, and FISH performed on prior bx [id number] - ? see separate report. ? pTNM: ---pT1b N1a (AJCC, 7th edition, 2010) ? C - Left breast lateral margin, re-excsion: ? Fibrocystic changes with adenosis, columnar cell hyperplasia and usual ? ductal hyperplasia. ? BRTMRBLK-BRIN: A3-5 ? BRNRL-BRIN: A9-10 ?- - - - - - - - - - - - - - - - - - - - - - - - - - - - - ? *Diagnostic murillo for hormone receptors (ASCO/CAP GUIDELINES, 2010): ? Negative immunoreactivity: <1% tumor cells with immunostaining ? Positive immunoreactivity: >1% tumor cells with immunostaining ? Immunohistochemical assays were performed on paraffin-embedded tissue ? sections fixed in 10% neutral buffered formalin for 6-72 hours using the ? polymer system technique with appropriate positive and negative controls. ? The assays were performed according to ? the computer artist? s instructions using Anti-ER (SP1) and Anti-UT (16) ? antibodies. ? 02/18/15 ? [facility] ? 02/19/15 Verified by: ? Mi Lott DO ? Pathologist ? (Electronic Signature) ? The attending pathologist whose signature appears on this report has ? reviewed all diagnostic slides and has edited the gross and/or ? microscopic portion of the report in rendering the final pathologic ? diagnosis. ? [facility] ? Provider: ?? KESHIA CRUZ ??Pt. Name: ?? OCTAVIO JENSEN ? Acc #: ?[id number] ?Pt. ? Col Date: ?? 02/16/2015 ? /Sex: ?1955,(59 years),Female ? Rec Date: ?? 02/16/2015 ? [facility] ? SURGICAL PATHOLOGY ? DISCUSSION ? Correction ? Note: ??Total no. nodes negative for carcinoma was corrected from 0 to 2. ? There are no other changes to the text of this report. ? GROSS DESCRIPTION ? A - Labeled/Fixative: Left partial mastectomy, fresh. ? SPECIMEN DESCRIPTION ? Resection Specimen: Intact left excisional biopsy. ? Qty/Size/Weight: Single, 5.9 x 4.9 x 1.2 cm, 21 g. ? Radiograph: Reviewed, clip and wire within specimen. ? Specimen Description: According to the established protocol the ink ? designations are red (medial), yellow (lateral), orange (cranial), green ? (caudal), black (deep) and blue (superficial). ? Tissue Sections: The specimen is serially sectioned perpendicular to the ? long axis from yellow to red into 13 slices, each averaging 0.5 cm in ? thickness. ? LESION ? Description: Ill-defined Mass. ? Size: 0.7 x 0.7 x 0.6 cm. ? Color: [place], topete. ? Consistency: Firm and rubbery. ? Location: Slices five and six, and the clip is in the mass. ? Nearest Margin: 0.1 cm to green. ? Other Margins: 0.8 cm to black, 0.8 cm to blue, and all other margins are ? greater than 1.5 cm. ? OTHER ? Parenchyma: Yellow lobular adipose tissue, focal areas of hemorrhage and no ? other masses noted. ? Wire/Clip: Slice six. ? SECTIONS/PROCESSING: Entire lesion is submitted. (1) yellow margin; (2) ? slice four, region of mass; (3) slice five; (4-6) slice six; (7-8) slice ? seven region abutting mass; (9) sales representative consultant fibrous tissue from slice ? nine; (10) sales representative consultant fibrous tissue from slice two; (11) red margin. ? (R11) ? Ischemic Time: 90 minutes ? B - Labeled/Fixative: Left axillary sentinel nodes, fresh. ? Quantity/Size: Multiple, 2.7 x 2.1 x 0.6 cm. ? Tissue Description: Yellow, lobular adipose tissue. Sectioning reveals ? three lymph nodes, the largest 1.1 x 1.1 x 0.6 cm. ? Sections/Processing: All lymph nodes are submitted; (1) two lymph nodes; ? (2) one lymph node, inked. (R2) ? [facility] ? Provider: ?? KESHIA CRUZ ??Pt. Name: ?? OCTAVIO JENSEN ? Acc #: ?[id number] ?Pt. ? Col Date: ?? 02/16/2015 ? /Sex: ?1955,(59 years),Female ? Rec Date: ?? 02/16/2015 ? [facility] ? SURGICAL [facility] ? C - Labeled/Fixative: Left breast lateral margin, fresh. ? Quantity/Size: Single, 5.5 x 0.7 x 0.4 cm. ? Tissue Description: Unoriented piece of lobular yellow and red tissue. One ? surface has been inked yellow. ? Sections/Processing: Serially sectioned perpendicular to the long axis, and ? entirely submitted (1-3) (T3) ??njo ? CLINICAL INFORMATION ? Specimen Submitted: ? A - Left partial mastectomy ? B - Left axillary sentinel nodes ? C - Left breast lateral margin ? Clinical History: ? Breast cancer ? Clinical Diagnosis: ? Same 02/19/2015 3:16 PM EDT [facility] BREAST STRUCTURE / Unknown 02/16/2015 1:30 PM EDT 02/16/2015 1:30 PM EDT SENTINEL LYMPH NODE / Unknown 02/16/2015 1:30 PM EDT 02/16/2015 1:30 PM EDT Margin 02/16/2015 1:30 PM EDT 02/16/2015 1:30 PM EDT Keshia Cruz MD PATHOLOGY/CYTOLOGY [place] [address] documented in this encounter Visit Diagnoses Not on filedocumented in this encounter Administered Medications Inactive Administered Medications - up to 3 most recent administrations Medication Order MAR Action Action Date Dose Rate Site BUpivacaine (PF) (MARCAINE) 0.5 % (5 mg/mL) injection ONCE PRN, Starting on 02/16/15 at 1419, Until 02/16/15 at 1516, Intra-Operative (Intra-Procedure), Routine Given 02/16/2015 2:19 PM EDT 5 mLs 19- Surgical Site lactated ringers infusion 1,000 mL 1,000 mL, at 100 mL/hr, Intravenous, CONTINUOUS, Starting on 02/16/15 at 1045, Until 02/16/15 at 1516, Day of Surgery (Day of Procedure) New Bag 02/16/2015 1:40 PM EDT New Bag 02/16/2015 10:55 AM EDT 1,000 mLs 100 mL/hr lidocaine (PF) (XYLOCAINE) 10 mg/mL (1 %) injection ONCE PRN, Starting on e 02/16/15 at 1419, Until 02/16/15 at 1516, Intra-Operative (Intra-Procedure), Routine Given 02/16/2015 2:19 PM EDT 50 mg 19- Surgical Site documented in this encounter Active and Recently Administered Medications Times are shown in EDT. Continuous Medication Order 02/14/2015 02/15/2015 02/16/2015 lactated ringers infusion 1,000 mL (CANCELED) 1,000 mL, at 100 mL/hr, Intravenous, CONTINUOUS, Starting on 02/16/15 at 1045, Until 02/16/15 at 1516, Day of Surgery (Day of Procedure) 1055 (New Bag - Prov ider: Leydi Zepeda, RN)1330 (Anesthesia Volume Adjustment - Provider: Kathy Malone CRNA)1340 (New Bag - Provider: Kathy Malone CRNA)1415 (Anesthesia Volume Adjustment - Provider: Kathy Malone CRNA)1440 (Stopped - Provider: Kathy Malone CRNA) PRN Medication Order 02/14/2015 02/15/2015 02/16/2015 BUpivacaine (PF) (MARCAINE) 0.5 % (5 mg/mL) injection (CANCELED) ONCE PRN, Starting on Sun02/16/15 at 1419, Until Sun02/16/15 at 1516, Intra-Operative (Intra-Procedure), Routine 1419 (Given - Provid er: Keshia Cruz MD - Comment: Lidocaine 1% and 0.5% Marcaine mixed 1:1. total 10 cc) lidocaine (PF) (XYLOCAINE) 10 mg/mL (1 %) injection (CANCELED) ONCE PRN, Starting on Sun02/16/15 at 1419, Until Sun02/16/15 at 1516, Intra-Operative (Intra-Procedure), Routine 1419 (Given - Provid er: Keshia Cruz MD - Comment: Lidocaine 1% and 0.5% Marcaine mixed 1:1. total 10 cc) No Frequency Medication Order 02/14/2015 02/15/2015 02/16/2015 ceFAZolin (ANCEF) 2 gram/50 mL infusion (COMPLETED) 1 dose, Starting on Sun02/16/15 at 1023, Until Sun02/16/15 at 1305, LEYDI ZEPEDA: cabinet override 1305 (Given - Provid er: Kathy Malone CRNA) documented in this encounter Care Teams Butter Liquefier Relationship Specialty Start Date End Date Jewels Sorto APRN PCP - General 05/24/10 01/09/18 documented as of this encounter
--- OUTSIDE RECORDS SUMMARY | 2024-02-04 18:41 | XMS_ITS | Encounter Summary ---
Author Organization [facility] [place] [address] Care Team Providers Care Battery Container Finishing Hand Name Role Phone [employer]Jewels ca Shruthi BAUM Primary Care Provider [phone] Encounter Details Date Type Department Care Team (Late Contact Info) Description 03/02/2015 Telephone [place]ematology [place] [address] Annmarie Tolentino MSW [facility] DR HEMATOLOGY/[place] [address] Social History Tobacco Use Types Packs/Day Years Used Date Smoking Tobacco: Every Day Cigarettes Smokeless Tobacco: Never Sex and Gender Information Value Date Recorded Sex Assigned at Not on file Gender Identity Not on file Sexual Orientation Not on file documented as of this encounter Miscellaneous Notes * Telephone Encounter - Annmarie Tolentino MSW - 03/02/2015 10:43 AM EDT PC to Ms Jensen to see how she was recovering from surgery but got her answering machine. Msg. leftalong w/contact information. Will continue to follow. documented in this encounter Plan of Treatment Upcoming Encounters Date Type Department Care Team (Late st Contact Info) Description 12/04/2024 11:00 AM EDT Office [place] [address] Roddy Olson MD [facility] [place] [address] documented as of this encounter Visit Diagnoses Not on filedocumented in this encounter Care Teams Battery Container Finishing Hand Relationship Specialty Start Date End Date Jewels Sorto APRN PCP - General 05/24/10 01/09/18 documented as of this encounter
--- OUTSIDE RECORDS SUMMARY | 2024-02-04 18:41 | XMS_ITS | Encounter Summary ---
[place] [address] Care Team Providers Care Chip Mucker Name Role Phone Jewels Sorto APRN Primary Care Provider [phone] Reason for Visit * Reason Comments Chemotherapy Cycle 3 Day 1 * Medication Prior Authorization - Closed Specialty Diagnoses / Procedures Referred By Contac t Referred To Contact Hematology and Oncology Diagnoses Breast cancer, left breast Procedures TC DOXORUBICIN HCL, 10MG, INJECTION (ADRIAMYCIN) TC CYCLOPHOSPHAMIDE, 100MG (CYTOXAN) Hector Carey MD [address] [place] [id number] [facility] [address] [place] [address] Referral ID Status Reason Start Date Expiration Date Visits Re quested Visits Authorized [id number] Closed 04/05/2015 04/04/2016 1 1 Encounter Details Date Type Department Care Team (Late st Contact Info) Description 04/29/2015 8:30 AM EDT Infusion Hematology Oncology at [address] [address] Breast cancer, left breast Social [...] Progress Notes * Leatha Alonzo RN - 04/29/2015 9:55 AM EDT .stj * Lily Garcia RN - 04/29/2015 9:32 AM EDT INFUSION THERAPY ADMINISTRATION NOTES DIAGNOSIS: Breast Cancer CYCLE #: 3 day 1 REASON FOR VISIT: AC SUBJECTIVE Kelley offers no complaints. OBJECTIVE LAB DATA: WBC 8.31/Hgb 11.5/Hct 33.3/Plt 150/ANC 4.82 IV ACCESS: Mediport accessed at [facility] Pre administration: Chemotherapy orders independently verified for drug name, route, and dosage per patient's height, weight and BSA by Lily Garcia RN and Maira Wang [facility]. REACTIONS (DESCRIPTION, TIME, INTERVENTION AND EFFECTIVENESS) none ASSESSMENT Kelley was awake, alert and tolerated treatment well. PLAN Return to clinic per routine. documented in this encounter Plan of Treatment Upcoming Encounters Date Type Department Care Team (Late st Contact Info) Description 12/04/2024 11:00 AM EDT Office [place] [address] Roddy Olson MD [facility] [place] [address] documented as of this encounter Visit Diagnoses Diagnosis Breast cancer, left breast Malignant neoplasm of breast (female), unspecified site documented in this encounter Administered Medications Inactive Administered Medications - up to 3 most recent administrations Medication Order MAR Action Action Date Dose Rate Site cyclophosphamide (CYTOXAN) 1,242 mg in dextrose 5% 312.1 mL chemo infusion 1,242 mg (600 mg/m2/dose ? 2.07 m2 Treatment Plan BSA from Recorded weight), Intravenous, ONCE, 1 dose, On Jayshree 04/29/15 at 1015, Administer over 30 Minutes New Bag 04/29/2015 10:52 AM EDT 1,242 mg 624.2 mL/hr dexamethasone (DECADRON) tablet 10 mg 10 mg, Oral, ONCE, 1 dose, On Jayshree 04/29/15 at 0915, Administer prior to chemotherapy, Routine Given 04/29/2015 9:35 AM EDT 10 mg DOXOrubicin (ADRIAMYCIN) chemo injection 124.2 mg 124.2 mg (60 mg/m2/dose ? 2.07 m2 Treatment Plan BSA from Recorded weight), Intravenous, ONCE, 1 dose, On Jayshree 04/29/15 at 1015, Administer each syringe over a minimum of 3 minutes per syringe. Product Name: DO XOrubicin chemo injection Syringe of 3 for a total of 124.2 mg Each Syringe contains 41.4 mg in 20.7 mL. Given 04/29/2015 10:25 AM EDT 124.2 mg fosaprepitant (EMEND) 150 mg in sodium chloride 0.9% 155 mL infusion 150 mg, Intravenous, ONCE, 1 dose, On Jayshree 04/29/15 at 0915, Administer over 30 Minutes, Administer prior to chemotherapy New Bag 04/29/2015 9:39 AM EDT 150 mg 310 mL/hr heparin, porcine 100 unit/mL flush 500 Units 500 Units, Intravenous, ONCE PRN, Starting on Jayshree 04/29/15 at 0848, Until Jayshree 04/29/15 at 1747, Line Care, Refer to Intravenous (IV) Procedure: Accessing Implanted Vascular Access Devices (654) procedure and/or Intravenous (IV) Job Aid: Adult Flushing & Catheter Care (8314) job aid for additional information regarding guidelines and administration., Routine Given 04/29/2015 11:29 AM EDT 500 Units palonosetron (ALOXI) injection 0.25 mg 0.25 mg, Intravenous, ONCE, 1 dose, On Jayshree 04/29/15 at 0915, Administer over 30 seconds. Administer prior to chemotherapy, Routine Given 04/29/2015 9:37 AM EDT 0.25 mg pegfilgrastim (NEULASTA) injection 6 mg 6 mg, Subcutaneous, ONCE, 1 dose, On Jayshree 04/29/15 at 0915, Routine Given 04/29/2015 11:27 AM EDT 6 mg sodium chloride 0.9 % flush 5-20 mL 5-20 mL, Intravenous, EVERY 1 MIN PRN, Starting on Jayshree 04/29/15 at 0848, Until Jayshree 04/29/15 at 1747, Line Care, Flush pertains to all indwelling lines. Flush per protocol found in the job aid using the link provided on this medication record. Refer to Intravenous (IV) Job Aid: Adult Flushing & Catheter Care (6194) job aid for additional information regarding guidelines and administration., Routine Given 04/29/2015 11:29 AM EDT 20 mLs documented in this encounter Care Teams Chip Mucker Relationship Specialty Start Date End Date Jewels Sorto APRN PCP - General 05/24/10 01/09/18 documented as of this encounter
--- OUTSIDE RECORDS SUMMARY | 2024-02-04 18:41 | XMS_ITS | Encounter Summary ---
Author Organization [facility] [place] [address] Care Team Providers Care Corn Crop Supervisor Name Role Phone Jewels Sorto APRN Primary Care Provider [phone] Reason for Visit * Reason Onset Date Comments Follow-up 04/01/2015 Encounter Details Date Type Department Care Team (Late st Contact Info) Description 04/01/2015 Telephone Hematology/Oncology at [address] [address] Kelley Cabrera RN Follow-up Social History Tobacco Use Types Packs/Day Years [...] encounter Miscellaneous Notes * Telephone Encounter - Kelley Cabrera RN - 04/01/2015 3:40 PM EDT Called patient at home she states she was a little nauseated this am. She took a compazine and it took nausea away. Recommended she take one first thing when she wakes up in morning next two days andthen on Sunday see how she feels without one. Pt agrees with plan. She is moving bowels and urinating without issue. Recommended she get out for a little walk as she has not today. She is eating fineand drinking water. She knows to call with any questions or concerns. We will follow up with her Sunday in clinic. documented in this encounter Plan of Treatment Upcoming Encounters Date Type Department Care Team (Late st Contact Info) Description 12/04/2024 11:00 AM EDT Office Visit [place] [address] Roddy Olson MD [facility] [place] [address] documented as of this encounter Visit Diagnoses Not on filedocumented in this encounter Care Teams Corn Crop Supervisor Relationship Specialty Start Date End Date Jewels Sorto APRN PCP - General 05/24/10 01/09/18 documented as of this encounter
--- OUTSIDE RECORDS SUMMARY | 2024-02-04 18:41 | XMS_ITS | Encounter Summary ---
Author Organization [facility] Address [facility] [place] [address] Care Team Providers Care Service Supervisor Name Role Phone Jewels Sorto BAUTISTA Primary Care Provider [phone] Encounter Details Date Type Department Care Team (Late st Contact Info) Description 02/01/2015 Orders [place] [address] Shiloh Cruz MD [facility] [place] [address] Breast cancer, female, left Social History Tobacco Use Types Packs/Day [...] AM EDT Office [place] [phone] Roddy Olson MD [facility] [place] [address] documented as of this encounter Results * Mammo sentinel node injection (02/16/2015 10:00 AM EDT) Anatomical Region Laterality Modality Breast N/A Mammography 02/16/2015 10:0 0 AM EDT Addenda Addendum by Salma Farooq MD on 02/23/2015 9:21 PM EDT Addendum Begins This report was addended for administrative purposes only. ?? Addendum Ends Addendum by KIM, UNSIGNED REPORT on 02/17/2015 11:10 AM EDT Addendum Begins This report was addended for administrative purposes only. ?? Addendum Ends Narrative 02/16/2015 10:28 AM EDT CLINICAL INDICATION: Breast cancer, sentinel node excision to be performed today LESION #1: Left breast upper outer at 1 Oclock 6 cm from the nipple. LESION #2: Left axilla at 1:00 12 cm from the nipple Ultrasound guided wire localization was performed of lesion #1 and lesion #2. Post localization mammograms are obtained showing the wires to be a target lesions. A sentinel node injection was performed of the Left breast using 0.2 milliCuries of Tc-99m sulfur colloid. ??Half the dose was injected subcutaneously superficial to the tumor as identified by prior imaging, and half injected intradermally above the lesion. No imaging was performed. PROCEDURAL ATTESTATION: Resident: Dr. EMMETT BHATIA I was present with the resident for the murillo component(s) of the procedure and otherwise remained immediately available for the duration of the procedure. I attest to having personally viewed the images/test and approve the above interpretation. Film and interpretation reviewed by the attending Procedure Note Salma Farooq MD / KIM, UNSIGNED REPORT - 02/23/2015 CLINICAL INDICATION: Breast cancer, sentinel node excision to be performedtoday LESION #1: Left breast upper outer at 1 Oclock 6 cm from the nipple. LESION #2: Left axilla at 1:00 12 cm from the nipple Ultrasound guided wire localization was performed of lesion #1 and lesion#2. Post localization mammograms are obtained showing the wires to be atarget lesions. A sentinel node injection was performed of the Left breast using 0.2milliCuries of Tc-99m sulfur colloid. Half the dose was injected subcutaneouslysuperficial to the tumor as identified by prior imaging, and half injectedintradermally above the lesion. No imaging was performed. PROCEDURAL ATTESTATION: Resident: Dr. EMMETT BHATIA I was present with the resident for the murillo component(s) of the procedureand otherwise remained immediately available for the duration of theprocedure. I attest to having personally viewed the images/test and approve the above interpretation. Film and interpretation reviewed by the attending Shiloh Cruz MD IMG MAMMO ORDERABLE S documented in this encounter Visit Diagnoses Diagnosis Breast cancer, female, left Breast cancer, female, left documented in this encounter Care Teams Service Supervisor Relationship Specialty Start Date End Date Jewels Sorto APRN PCP - General 05/24/10 01/09/18 documented as of this encounter
--- OUTSIDE RECORDS SUMMARY | 2024-02-04 18:41 | XMS_ITS | Encounter Summary ---
Author Organization [facility] Address [facility] [place] [address] Care Team Providers Care Aircraft Armament Mechanic Name Role Phone [place]els ca Shruthi BAUM Primary Care Provider [phone] Encounter Details Date Type Department Care Team (Latest Contact Info) Description 02/16/2015 10:15 AM EDT - 02/16/2015 3:24 PM EDT Hospital Encounter [place] [phone] Keshia Cruz MD [facility] [place] [address] Discharge Disposition: Home Social History Tobacco Use [...] closest emergency room or call the hospital honing machine operator production at [phone] and ask for physician partner integration planner covering for your physician. Questions or problems after 5pm or on a weekend: Call the [facility] honing machine operator production at and ask for the physician partner integration planner covering for your doctor. Okay to shower 24 hours Activity as tolerated Call [phone] with any questions steristrips will fall off [...] Cruz MD - 02/15/2015 3:37 PM EDT JACKIE Benson presents today with her daughter and . [...] low to intermediate grade IDC which is ER/IA+ and HER2-. Octavio denies any breast masses, [...] is node negative (given that she is ER/IA+ and HER-). She is also aware that both radiation and endocrine therapy will be recommended. She would like to undergo radiation in [facility]. Risks of surgery including bleeding, infection, [...] Cruz MD - 02/16/2015 2:23 PM EDT [facility] Operative Note Patient Name: Octavio Jensen : [id number] MR#: [id number] Case Date: 02/16/2015 Surgeon: Surgeon(s) and Role: [...] AM EDT Office [place] [address] Roddy Olson MD [facility] [place] [address] documented as of this encounter Procedures Procedure [...] EDT 02/16/2015 2:17 PM EDT Narrative REJI SALAZAR - 02/16/2015 2:17 PM EDT Specimen requisition ordered. ??Separate Pathology report to follow Keshia Cruz MD PATHOLOGY/CYTOLOGY ORDERABLES REJI SALAZAR * Specimen to Pathology (surgical or derm) (02/16/2015 1:56 PM EDT) AP Specimen 02/16/2015 1:56 PM EDT 02/16/2015 1:56 PM EDT Narrative REJI SALAZAR - 02/16/2015 1:56 PM EDT Specimen requisition ordered. ??Separate Pathology report to follow Keshia Cruz MD PATHOLOGY/CYTOLOGY ORDERABLES Performing Organization Address [facility] Co de Phone Number [facility] * Specimen to Pathology (surgical or derm) (02/16/2015 1:31 PM EDT) AP Specimen 02/16/2015 1:31 PM EDT 02/16/2015 1:31 PM EDT Narrative REJI SALAZAR - 02/16/2015 1:31 PM EDT Specimen requisition ordered. ??Separate Pathology report to follow Keshia Cruz MD PATHOLOGY/CYTOLOGY ORDERABLES Performing Organization Address [facility] Co de Phone Number [facility] * Surgical Pathology Report (02/16/2015 1:30 PM EDT) Final Diagnosis ? [facility] ? Provider: ?? KESHIA CRUZ ??Pt. Name: ?? OCTAVIO JENSEN ? Acc #: ?[id number] ?Pt. ? Col Date: ?? 02/16/2015 ? /Sex: ?1955,(59 years),Female ? Rec Date: ?? 02/16/2015 ? LOC: ?[facility] ? SURGICAL PATHOLOGY ? DIAGNOSIS ? CORRECTED REPORT (see Discussion) ? Specimen (s): ??A - Left partial mastectomy ?B - Left axillary sentinel nodes ? Histologic Type: Invasive ductal carcinoma ? Tumor Grade: ??Low (High, Intermediate, Low) ? Zkzeso-Dufmp-Twomixiwn n Score: ??5 ?Tubular Differentiation: ?? 1 [...] no. nodes negative for carcinoma: ??2 ? [facility] ? Provider: ?? KESHIA CRUZ ??Pt. Name: ?? OCTAVIO JENSEN ? Acc #: ?[id number] ?Pt. ? Col Date: ?? 02/16/2015 ? /Sex: ?1955,(59 years),Female ? Rec Date: ?? 02/16/2015 ? LOC: ?[facility] ? SURGICAL PATHOLOGY ? For positive nodes: ? Largest deven deposit ?? 1.0 cm ? Extranodal extension ?No ? Estrogen/Progestin receptors, and FISH performed on prior bx [id number] - ? see separate report. ? pTNM: [...] assays were performed according to ? the ethnology professor? s instructions using Anti-ER (SP1) and Anti-IA (16) ? antibodies. ? 02/18/15 ? [facility] ? 02/19/15 Verified by: ? Mi Lott DO ? Pathologist ? (Electronic Signature) ? The attending pathologist whose signature appears on this report has ? reviewed all diagnostic slides and has edited the gross and/or ? microscopic portion of the report in rendering the final pathologic ? diagnosis. ? [facility] ? Provider: ?? KESHIA CRUZ ??Pt. Name: ?? OCTAVIO JENSEN ? Acc #: ?[id number] ?Pt. ? Col Date: ?? 02/16/2015 ? [...] x 0.7 x 0.6 cm. ? Color: Moonshine, topete. ? Consistency: Firm and rubbery. ? [...] seven region abutting mass; (9) sales representative cash registers fibrous tissue from slice ? nine; (10) sales representative cash registers fibrous tissue from slice two; (11) red [...] (2) one lymph node, inked. (R2) ? [facility] ? Provider: ?? KESHIA CRUZ ??Pt. Name: ?? OCTAVIO JENSEN ? Acc #: ?[id number] ?Pt. ? Col Date: ?? 02/16/2015 ? [...] Diagnosis: ? Same 02/19/2015 3:16 PM EDT [facility] BREAST STRUCTURE / Unknown 02/16/2015 1:30 PM EDT 02/16/2015 1:30 PM EDT SENTINEL LYMPH NODE / Unknown 02/16/2015 1:30 PM EDT 02/16/2015 1:30 PM EDT Margin 02/16/2015 1:30 PM EDT 02/16/2015 1:30 PM EDT Keshia Cruz MD PATHOLOGY/[place] [address] documented in this encounter Visit Diagnoses Not on filedocumented in this encounter Administered Medications Inactive Administered Medications - up to 3 most recent administrations Medication Order MAR Action Action Date Dose Rate Site lactated ringers infusion 1,000 mL 1,000 mL, at 100 mL/hr, Intravenous, CONTINUOUS, Starting on Sun02/16/15 at 1045, Until Sun02/16/15 at 1516, Day of Surgery (Day of Procedure) New Bag 02/16/2015 1:40 PM EDT New Bag 02/16/2015 10:55 AM EDT 1,000 mLs 100 mL/hr documented in this encounter Active and Recently Administered Medications Times are shown in EDT. Continuous Medication Order 02/14/2015 02/15/2015 02/16/2015 lactated ringers infusion 1,000 mL (CANCELED) 1,000 mL, at 100 mL/hr, Intravenous, CONTINUOUS, Starting on Sun02/16/15 at 1045, Until Sun02/16/15 at 1516, Day of Surgery (Day of Procedure) 1055 (New Bag - Prov ider: Leydi Zepeda RN)1330 (Anesthesia Volume Adjustment - Provider: Kathy Malone CRNA)1340 (New Bag - Provider: Kathy Malone CRNA)1415 (Anesthesia Volume Adjustment - Provider: Kathy Malone CRNA)1440 (Stopped - Provider: Kathy Malone CRNA) PRN Medication Order 02/14/2015 02/15/2015 02/16/2015 BUpivacaine (PF) (MARCAINE) 0.5 % (5 mg/mL) injection (CANCELED) ONCE PRN, Starting on 02/16/15 at 1419, Until 02/16/15 at 1516, Intra-Operative (Intra-Procedure), Routine 1419 (Given [...] Sun02/16/15 at 1305, LEYDI FRIEND: cabinet override 1305 (Given - Provid er: Kathy Malone CRNA) documented in this encounter Care Teams Aircraft Armament Mechanic Relationship Specialty Start Date End Date Jewels Sorto APRN PCP - General 05/24/10 01/09/18 documented as of this encounter
--- OUTSIDE RECORDS SUMMARY | 2024-02-04 18:41 | XMS_ITS | Encounter Summary ---
Author Organization [facility] Address [facility] [place] [address] Care Team Providers Care Shredded Filler Cutter Operator Name Role Phone Jewels Sorto APRN Primary Care Provider [phone] Encounter Details Date Type Department Care Team (Late st Contact Info) Description 04/15/2015 11:00 AM EDT Office Visit Hematology/Oncology at [address] [address] Dorcas Dickinson APRN [address] [facility] [place] [address] Breast cancer, left breast Social History Tobacco [...] Sign Reading Time Taken Comments Blood Pressure 139/76 04/15/2015 10:35 AM EDT Pulse 77 04/15/2015 10:35 AM EDT Temperature 36.6 ??C (97.9 ??F) 04/15/2015 10:35 AM E DT Respiratory Rate 16 04/15/2015 10:35 AM EDT Oxygen Saturation 98% 04/15/2015 10:35 AM EDT Inhaled Oxygen Concentration - - Weight 92.5 kg (204 lb) 04/15/2015 10:35 AM EDT Height 170 cm (5' 6.93) 04/15/2015 10:35 AM EDT Body Mass Index 32.02 04/15/2015 10:35 AM EDT documented in this encounter Progress Notes * Dorcas Dickinson, RETAIL ANALYST - 04/15/2015 10:47 AM EDT Diagnosis: 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 The tumor was 0.7 cm, low-grade, ER/[place] positive, with 1 of 3 sentinel positive nodes. HER-2 was negative. Subjective: Kelley comes in today for followup 2wks after her first cycle of chemotherapy with Adriamycin and Cytoxan. She was seen earlier this week for a possible shingles outbreak but it was unclear and today the rash seems better although the pain persists. She has been using caladryl which she states is helping. Past medical history and social history were [...] to visit. 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 She is accompanied today by her daughter who has cerebral palsy. She is and has excellent home support. Review of Systems Constitutional: Negative for fever, chills, activity change, fatigue and unexpected weight change. HENT: Negative for sore throat, mouth sores and trouble swallowing. Eyes: Negative. Respiratory: Occas dry non productive cough- she quit smoking in early January. Mild occasional SOB.No wheezing. Cardiovascular: Negative for chest pain, palpitations and leg swelling. Gastrointestinal: Negative for nausea, vomiting, abdominal pain, diarrhea, constipation and abdominal distention. Genitourinary: Negative for dysuria and difficulty urinating. Musculoskeletal: Negative. Skin: rash as above Neurological: Negative. Hematological: Negative for adenopathy. BP 139/76 mmHg Pulse 77 Temp(Src) 36.6 ??C (97.9 ??F) (Oral) Resp 16 Ht 170 cm (5' 6.93) Wt 92.534 kg (204 lb) BMI 32.02 kg/m2 SpO2 98% General: AAAx3, in NAD Head: Normocephalic, without obvious abnormality, atraumatic Eyes: PERRL, conjunctiva/corneas clear, EOM's intact Nose: Nares normal, septum midline Throat: Lips, mucosa, and tongue normal; teeth and gums normal Neck: Supple, symmetrical, trachea midline, no adenopathy Back: Symmetric, no curvature, ROM normal. Lungs: Clear to auscultation bilaterally mildly decreased throughout, respirations unlabored; Heart: Regular rate and rhythm, S1, S2 normal, no murmur, rub or gallop Abdomen: Soft, non-tender, no masses, no organomegaly Extremities: Extremities normal, atraumatic, no cyanosis or edema Skin: Rash about .7wdn1xs along a fold in the skin of her R side. One possible healing vesicle but appearance not definitive for zoster. Lymph nodes: Cervical, supraclavicular, and axillary nodes normal Neurologic: Normal; nl patellar reflexes; product marketer grossly intact Vitals BP 139/76 mmHg Pulse 77 Temp(Src) 36.6 ??C (97.9 ??F) (Oral) Resp 16 Ht 170 cm (5' 6.93) Wt 92.534 kg (204 lb) BMI 32.02 kg/m2 SpO2 98% Weight Wt Readings from Last 3 Encounters: 04/15/15 92.534 kg (204 lb) 04/05/15 92.08 kg (203 lb) 03/29/15 92.08 kg (203 lb) Labs: 04/12/15 CBC: WBC 8.55 hemoglobin 12.6 platelets 196 CMP: Sodium 140 potassium 3.8 BUN 17 creatinine 0.8 glucose 106 calcium 8.9 total bili 0.22 AST 15 ALT 28 alkaline phosphatase 114 total protein 6.8 albumin 3.4 Assessment/Plan: 1. Breast CA: Kelley is tolerating Adriamycin and Cytoxan quite well. Plan to treat today for C2. [employer] set her up for her third of four cycles of Adriamycin and Cytoxan. Following that, 12 weeks of Taxol are planned. 2: Rash: Likely zoster but appears to be resolving on it's own. I will fax a script for valtrex in case the pain and/or rash worsens over the weekend. She will call if she needs to fill it. 3. Cough/SOB: cough likely residual from quitting smoking and SOB from 1g drop in Hgb caused by chemo. Will watch. 4. Nutrition: She states she was hoping to lose weight while undergoing treatment, and when we toldher that it is more likely that she will gain weight she was quite concerned about this. Plan to have her see the dietitian at her next visit to follow-up. Dorcas Dickinson, MSN, DOCUMENT CONTROL ASSISTANT, AOCN Hematology/Oncology Nurse Practitioner [place], [place] [phone] documented in this encounter Plan of Treatment Upcoming Encounters Date Type Department Care Team (Late st Contact Info) Description 12/04/2024 11:00 AM EDT Office Visit [place] [address] Roddy Olson MD [facility] [place] [address] documented as of this encounter Visit Diagnoses Diagnosis Breast cancer, left breast Malignant neoplasm of breast (female), unspecified site documented in this encounter Care Teams Shredded Filler Cutter Operator Relationship Specialty Start Date End Date Jewels Sorto APRN PCP - General 05/24/10 01/09/18 documented as of this encounter
--- OUTSIDE RECORDS SUMMARY | 2024-02-04 18:41 | XMS_ITS | Encounter Summary ---
[place] [address] Care Team Providers Care Shredder Tender Name Role Phone Jewels Sorto APRN Primary Care Provider [phone] Reason for Visit * Reason Comments Chemotherapy AC #1 of 4 planned * Medication Prior Authorization - Closed Specialty Diagnoses / Procedures Referred By Contac t Referred To Contact Hematology and Oncology Diagnoses Breast cancer, left breast Procedures TC DOXORUBICIN HCL, 10MG, INJECTION (ADRIAMYCIN) TC CYCLOPHOSPHAMIDE, 100MG (CYTOXAN) Hector Carey MD [address] [place] [address], [place] [address] [facility] [address] [place] [id number] Referral ID Status Reason Start Date Expiration Date Visits Re quested Visits Authorized [id number] Closed 04/05/2015 04/04/2016 1 1 Encounter Details Date Type Department Care Team (Francisca simon Contact Info) Description 03/29/2015 11:00 AM EDT Infusion Hematology Oncology at [address] [address] CLINIC, DR [facility] HEM/ONC Breast cancer, left breast Discharge Disposition: Home [...] Progress Notes * Lily Garcia RN - 03/29/2015 2:38 PM EDT INFUSION THERAPY ADMINISTRATION NOTES DIAGNOSIS: Breast Cancer CYCLE #: 1 of 4 planned REASON FOR VISIT: AC/Neulasta SUBJECTIVE Kelley offers no complaints. She was accompanied today by her . OBJECTIVE LAB DATA:WBC 6.46/Hgb 13.4/Hct 38.7/Plt 225/ANC 3.3 IV ACCESS: Mediport Pre administration: Chemotherapy orders independently verified for drug name, route, and dosage per patient's height, weight and BSA by Lily Garcia RN and Maira Wang [facility]. REACTIONS (DESCRIPTION, TIME, INTERVENTION AND EFFECTIVENESS) none ASSESSMENT Kelley was awake, alert and tolerated treatment well. Pt. chemo teaching instructions included: During clinic hours (8am-5pm Sunday-Sunday): pt. can call [phone] with questions or concerns. After clinic hours (5pm-8am Sunday-Sunday and weekends) pt can call [phone] and ask for the plater supervisor/oncologist fire operations forester. Kelley Jensen verbalized understanding of potential chemotherapy side effects and home care including but not limited to- handwashing to prevent infection, signs and symptoms of low blood counts (fever, fatigue, bleeding), to call with a fever of 100.4 or greater, any significant constipation/diarrhea, importance of nutrition and fluid intake (drinking at least 32-64 ounces of non-caffeinated beverages/day), mouth care. Kelley Jensen verbalized understanding of how to take prescription medications given for home use after chemotherapy. PLAN Return to clinic per routine. documented in this encounter Plan of Treatment Upcoming Encounters Date Type Department Care Team (Late st Contact Info) Description 12/04/2024 11:00 AM EDT Office [place] [address] Roddy Olson MD [facility] [place] [address] documented as of this encounter Visit Diagnoses [...] Recorded weight), Intravenous, ONCE, 1 dose, On Sun03/29/15 at 1300, Administer over 30 Minutes New Bag 03/29/2015 1:11 PM EDT 1,242 mg 624 mL/hr dexamethasone (DECADRON) tablet 10 mg 10 mg, Oral, ONCE, 1 dose, On Sun03/29/15 at 1200, Administer prior to chemotherapy, Routine Given 03/29/2015 12:10 PM EDT 10 mg DOXOrubicin (ADRIAMYCIN) chemo injection 124.2 mg 124.2 mg (60 mg/m2/dose ? 2.07 m2 Treatment Plan BSA from Recorded weight), Intravenous, ONCE, 1 dose, On Sun03/29/15 at 1300, Administer each syringe over a minimum of 3 minutes per syringe. Each Syringe contains 41.4 mg in 20.7 mL. Given 03/29/2015 12:56 PM EDT 124.2 mg fosaprepitant (EMEND) 150 mg in sodium chloride 0.9% 155 mL infusion 150 mg, Intravenous, ONCE, 1 dose, On Sun03/29/15 at 1200, Administer over 30 Minutes, Administer prior to chemotherapy New Bag 03/29/2015 12:11 PM EDT 150 mg 310 mL/hr heparin, porcine 100 unit/mL flush 500 Units 500 Units, Intravenous, ONCE PRN, Starting on Sun03/29/15 at 1132, Until Sun03/29/15 at 1704, Line Care, Refer to Intravenous (IV) Procedure: Accessing Implanted Vascular Access Devices (864) procedure and/or Intravenous (IV) Job Aid: Adult Flushing & Catheter Care (5527) job aid for additional information regarding guidelines and administration., Routine Given 03/29/2015 1:55 PM EDT 500 Units LORazepam (ATIVAN) tablet 0.5 mg 0.5 mg, Oral, ONCE, 1 dose, On Sun03/29/15 at 1200, Administer prior to chemotherapy, Routine Given 03/29/2015 12:10 PM EDT 0.5 mg palonosetron (ALOXI) injection 0.25 mg 0.25 mg, Intravenous, ONCE, 1 dose, On Sun03/29/15 at 1200, Administer over 30 seconds. Administer prior to chemotherapy, Routine Given 03/29/2015 12:11 PM EDT 0.25 mg pegfilgrastim (NEULASTA) injection 6 mg 6 mg, Subcutaneous, ONCE, 1 dose, On Sun03/29/15 at 1200, Routine Given 03/29/2015 1:50 PM EDT 6 mg sodium chloride 0.9 % flush 5-20 mL 5-20 mL, Intravenous, EVERY 1 MIN PRN, Starting on Sun03/29/15 at 1132, Until Sun03/29/15 at 1704, Line Care, Flush pertains to all indwelling lines. Flush per protocol found in the job aid using the link provided on this medication record. Refer to Intravenous (IV) Job Aid: Adult Flushing & Catheter Care (3835) job aid for additional information regarding guidelines and administration., Routine Given 03/29/2015 1:55 PM EDT 20 mLs documented in this encounter Care Teams Shredder Tender Relationship Specialty Start Date End Date Jewels Sorto APRN PCP - General 05/24/10 01/09/18 documented as of this encounter
--- OUTSIDE RECORDS SUMMARY | 2024-02-04 18:41 | XMS_ITS | Encounter Summary ---
[facility] Address [facility] [place] [address] Care Team Providers Care Solids Control Technician Name Role Phone Jewels Sorto APRN Primary Care Provider [phone] Encounter Details Date Type Department Care Team (Latest Contact Info) Description 02/16/2015 8:31 AM EDT - 02/16/2015 9:09 AM EDT Hospital [place] [phone] Breast cancer, left Social History Tobacco Use Types Packs/Day [...] 01/28/2015 03/01/2015 documented as of this encounter Plan of Treatment Upcoming Encounters Date Type Department Care Team (Late st Contact Info) Description 12/04/2024 11:00 AM EDT Office [place] [address] Roddy Olson MD [facility] [place] [address] documented as of this encounter Procedures Procedure Name Priority Date/Time Associated Diagnosis Comments MAMMO DIRECT DIGITAL UNILATERAL Routine 02/16/2015 9:58 AM EDT documented in this encounter Results * Mammo Direct Digital Unilateral (02/16/2015 9:58 AM EDT) Anatomical Region Laterality Modality Breast N/A Mammography 02/16/2015 9:58 AM EDT Addenda Addendum by Salma Farooq [...] was performed. PROCEDURAL ATTESTATION: Resident: Dr. EMMETT VEGA was present with the resident for the [...] was performed. PROCEDURAL ATTESTATION: Resident: Dr. EMMETT VEGA was present with the resident for the murillo component(s) of the procedureand otherwise remained immediately available for the duration of theprocedure. I attest to having personally viewed the images/test and approve the above interpretation. Film and interpretation reviewed by the attending Shiloh Cruz MD IMG MAMMO ORDERABLE S documented in this encounter Visit Diagnoses Diagnosis Breast cancer, left Malignant neoplasm of breast (female), unspecified site documented in this encounter Care Teams Solids Control Technician Relationship Specialty Start Date End Date Jewels Sorto APRN PCP - General 05/24/10 01/09/18 documented as of this encounter
--- OUTSIDE RECORDS SUMMARY | 2024-02-04 18:41 | XMS_ITS | Encounter Summary ---
Author Organization [facility] [place] [address] Care Team Providers Care Table Setter Name Role Phone Jewels Sorto APRN Primary Care Provider [phone] Reason for Visit * Reason Comments Breast Cancer Encounter Details Date Type Department Care Team (Late st Contact Info) Description 04/05/2015 3:00 PM EDT Office Visit Hematology/Oncology at [address] [phone] Hector Carey MD [address] [place] [phone] Breast cancer, left breast Social History Tobacco [...] Sign Reading Time Taken Comments Blood Pressure 124/69 04/05/2015 2:49 PM EDT Pulse 77 04/05/2015 2:49 PM EDT Temperature 36.6 ??C (97.9 ??F) 04/05/2015 2:49 PM ED T Respiratory Rate 18 04/05/2015 2:49 PM EDT Oxygen Saturation 97% 04/05/2015 2:49 PM EDT Inhaled Oxygen Concentration - - Weight 92.1 kg (203 lb) 04/05/2015 2:49 PM EDT Height 170 cm (5' 6.93) 04/05/2015 2:49 PM EDT Body Mass Index 31.86 04/05/2015 2:49 PM EDT documented in this encounter Progress Notes * Hector Carey MD - 04/05/2015 2:55 PM EDT Diagnosis: 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 The tumor was 0.7 cm, low-grade, ER/CO positive, with 1 of 3 sentinel positive nodes. HER-2 was negative. Subjective: Kelley comes in today for followup one week after her first cycle of chemotherapy with Adriamycin and Cytoxan. The first chemotherapy went quite well. She has minimal fatigue if any and had only one evening a couple of days after chemotherapy where she had some nausea that was completely relieved with a single Compazine. Other than that, she has not had any nausea or vomiting, her bowels have been fine. She has no stomatitis. Her has had an upper respiratory infection and I did tell her to call if she gets a cold as I would put her on prophylactic antibiotics. We talked about impending neutropenia, which can happen over the next few days but should be transient and brief. She knows to call if she gets a problem with fever. We talked about problems with hair loss, which should begin in a couple of weeks and also talked about how to treat stomatitis if she gets it. I believe all of her questions were answered and she has a good understanding of things. Past medical history and social history were [...] than 2 hours before a treatment. ??? [DISCONTINUED] varenicline (CHANTIX CONTINUING MONTH ) 1 mg Tablet Take 1 tablet by mouth 2 times daily. 60 tablet 1 No current facility-administered medications on file prior to visit. No Known Allergies Medications 03/15/15 1522 Medication Sig Taking? hydrochlorothiazide (HYDRODIURIL) 25 mg Tablet Take 25 mg by mouth daily. Yes varenicline (CHANTIX CONTINUING MONTH ) 1 mg Tablet Take 1 tablet by [...] her breast cancer. 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 Hematological: Negative for adenopathy. BP 124/69 mmHg Pulse 77 Temp(Src) 36.6 ??C (97.9 ??F) (Oral) Resp 18 Ht 170 cm (5' 6.93) Wt 92.08 kg (203 lb) BMI 31.86 kg/m2 SpO2 97% Head: Normocephalic, without obvious [...] nodes normal Neurologic: Normal Assessment/Plan: Kelley is tolerating Adriamycin and Cytoxan quite well. We have set her up for her next chemotherapy in one week. She will be half done at that point. She will get a port draw CBC and CMP prior to that appointment. She will be seeing one of my partners prior to that chemotherapy and I will plan on seeing her back in three weeks from now for her third of four cycles of Adriamycin and Cytoxan. Following that, 12 weeks of Taxol are planned. documented in this encounter Plan of Treatment Upcoming Encounters Date Type Department Care Team (Late st Contact Info) Description 12/04/2024 11:00 AM EDT Office [place] [address] Roddy Olson MD [facility] [place] [address] documented as of this encounter Procedures Procedure Name Priority Date/Time Associated Diagnosis Comments LAB SCAN 04/12/2015 12:00 AM EDT documented in this encounter Results * SCAN DOC: LAB (04/12/2015 12:00 AM EDT) Scanning Provider MEDIA MGR SCAN EXT O RDR/RSLT documented in this encounter Visit Diagnoses Diagnosis Breast cancer, left breast Malignant neoplasm of breast (female), unspecified site documented in this encounter Care Teams Table Setter Relationship Specialty Start Date End Date Jewels Sorto APRN PCP - General 05/24/10 01/09/18 documented as of this encounter
--- OUTSIDE RECORDS SUMMARY | 2024-02-04 18:41 | XMS_ITS | Encounter Summary ---
Author Organization [facility] [place] [address] Care Team Providers Care Merchant Police Name Role Phone Jewels Sorto APRN Primary Care Provider [phone] Encounter Details Date Type Department Care Team (Latest Contact Info) Description 04/23/2015 1:00 PM EDT Clinical Support Hematology/Oncology at [address] [phone] [facility] [place] [address] Dietary counseling and surveillance Social History Tobacco Use Types Packs/Day Years [...] as of this encounter Progress Notes * Shilpa Diaz RD - 04/23/2015 12:58 PM EDT [facility] Initial Dietitian Assessment Seen By: Alix Diaz, MS, RD, STRUCTURES MECHANIC, LD Referred by: Dorcas Dickinson APRN Reason for visit: Pt requested. I want to eat better. 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 The tumor was 0.7 cm, low-grade, ER/CO positive, with 1 of 3 sentinel positive nodes. HER-2 was negative. Assessment: HPI: Patient Active Problem List Diagnosis Code ??? Malignant neoplasm of female breast C50.919 ??? Breast cancer, left breast C50.912 Meds: reviewed Labs: Ht/Wt: Oncology Vitals 04/15/2015 Weight 92.534 kg Height 170 cm Wt Hx: UBW: Been up and down goes between 196 - 210 lbs Goal Wt: 150 lbs, but has been 10 yrs since this wt. % UBW: IBW: 58.5 kg +/- 10% % IBW: BMI: 32.1 ___ Edema ___ Ascites ___Muscle wasting Calorie needs: 1200 Protein needs: 70 Fluid needs: 1.5 L Food Intake: Am: scr egg (two). Coffee w/ 2 sugar and cream Noon: Tries to eat something, meal site in [place]: beef stroganoff, teo salad, and apple cake Pm: vegetable soup Snacks: not typically, but may eat after her gets home from work at midnight. Fluid: trying to drink more water, coffee 2-5 cups/d (regular), little bit of juice or milk. Doesn't drink soda or ETOH. Supplements/Frequency: ___ Ensure/Plus ___ Boost/Plus ___ CIB ___ Other: Teas, vitamins, or other nutritional supplements: none Food allergies or avoidances: knfa, avoids spicy foods Appetite: I eat because I feel like I need to eat, not so much because I am hungry. If I wait til Lorenzo hungry, I eat to much. Nausea: denies, but has compazine if needed Vomiting: denies Chewing: denies Dentition: Swallowing: denies Taste Changes: denies Bowels: Good, baseline: QD. Food availability/purchasing, meal planning and preparation: She does. works second shift. Depression: Social Support: Economic Issues: Disability Physical Activity: Trying to walk QD for 20 -30 minutes, TIW at least. Level of Motivation/Readiness to Change: Nutrition Diagnosis: We discussed the concept of food as fuel for metabolism the importance of eating small, frequent, calorically dense, protein-rich meals and snacks throughout the day not only to meet her body's needs, but also to help with weight loss. Also discussed the benefits of physical activity, 20-30 minutes, most days of the week to help withfatigue, stimulate appetite, and preserve muscle mass during treatment. While she is on treatment, we also discussed healthy weight loss parameters of no greater that 2 pounds of loss/week. Reviewed ACS' survivorship guidelines for reducing risk of cancer recurrance: -- Obtain and maintain a healthy weight. -- Physical activity: 150 min/wk of moderate-vigorous physical activity with 2 days resistance/strength training. -- Adopt a plant-based diet: this would include lean meat sources (fish, skinless poultry, eggs, low-fat dairy), fruits, vegetables, and whole grains. Minimize processed foods. -- Dietary Fat Restriction - the WINS study showed a 10% decreased risk of breast cancer recurrencein women with ER positive breast cancer who were randomized to cut their dietary fat intake from 30% to 20% of calories as fat -- Alcohol in moderation (one drink for women, 1-2 for males/d) -- Soy is safe to consume, yet choose foods in whole, most-complete form (i.e. Soy milk, tofu, edema me) -- Daily multivitamin use is also safe. -- Vitamin D3 levels has been shown to be low in BrCa patients, thus recommended getting levels checked (either by PCP or oncologists) supplementing 1,000 IU/d and then retesting levels, if suboptimal in 3-6 mos. The [facility] series from [facility] January 2009 showed a lower risk of breast cancerrecurrence in women with 25-hydroxy Vitamin D levels of 35 ng/mL or higher. Nutrition Intervention: ? Increase caloric needs ? Modify diet consistency: ? Increase frequency of meals and snacks ? Need for supplements Nutrition Goals: healthy, safe weight loss and LBM preservation Educational Handouts provided: -- NCM MNT:1200 abner sample menu -- NCM MNT: 1500 abner 5-day sample menu - revised to 1300 kcal -- Protein needs and sources -- ON-DPG ToolKit: Nutrition for Breast Cancer Survivors -- Fluid intake -- Other Recommendations: ? Monitoring and Evaluation: Will follow up with Mr. Jensen in two week (s) to re-evaluate. I have provided him/her with my card and contact information should s/he have any questions in the mean time. Thank you for this consult. documented in this encounter Plan of Treatment Upcoming Encounters Date Type Department Care Team (Late st Contact Info) Description 12/04/2024 11:00 AM EDT Office [place] [address] Roddy Olson MD [facility] [place] [address] documented as of this encounter Visit Diagnoses Diagnosis Dietary counseling and surveillance Dietary surveillance and counseling documented in this encounter Care Teams Merchant Police Relationship Specialty Start Date End Date Jewels Sorto APRN PCP - General 05/24/10 01/09/18 documented as of this encounter
--- OUTSIDE RECORDS SUMMARY | 2024-02-04 18:41 | XMS_ITS | Encounter Summary ---
Author Organization [facility] [place] [address] Care Team Providers Care Armature Balancer Name Role Phone [facility] Shruthi BAUM Primary Care Provider [phone] Encounter Details Date Type Department Care Team (Late st Contact Info) Description 01/28/2015 Notes Only Hematology [place] [address] Annmarie Tolentino, BOILERMAKER MECHANIC [facility] DR HEMATOLOGY/[place] [address] Social History Tobacco Use Types Packs/Day Years Used Date Smoking Tobacco: Every Day Cigarettes Smokeless Tobacco: Never Sex and Gender Information Value Date Recorded Sex Assigned at Not on file Gender Identity Not on file Sexual Orientation Not on file documented as of this encounter Progress Notes * Annmarie Tolentino MSW - 01/28/2015 3:19 PM EDT OFFICE OF CARE MANAGEMENT/CONTINUING ELECTRIC VEHICLE ELECTRICIAN Reason for referral: Kelley Jensen is a 59 yr. old woman who lives in [place], [place], seen withher Daniel and daughter Elise before her consultation w/Dr. Cruz for left IDC. Advance Directives: Reviewed with her and her family. She will complete and return a copy for the chart. 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 She has support from her two daughters, mother and coworkers. Insurance/Finances: She has private insurance with a $2500 deductible. They were denied NSA when they applied when her was diagnosed with thyroid cancer 6 yrs. ago. She has 6 hrs. of vacationtime left. She has STD at 60%. Applications for possible financial assistance given for the [employer] and [employer], she was over-income for [facility]. Tobacco/drug/alcohol history: Currently using tobacco but successfully quit before using Chantex. She does not drink alcohol. Adjustment to illness/mental health concerns: She is coping fairly well, finding that talking w/others is helpful to her. Additional support services in the cancer center discussed. Plan: Marlene Romero and I will continue to follow to assess and assist with psychosocial needs as sheprogresses through treatment. PAVITHRA Gutierrez, [facility] Comprehensive Breast Program/[place] [address] [phone] documented in this encounter Plan of Treatment Upcoming Encounters Date Type Department Care Team (Late st Contact Info) Description 12/04/2024 11:00 AM EDT Office Visit [place] [address] Roddy Olson MD [facility] [place] [address] documented as of this encounter Visit Diagnoses Not on filedocumented in this encounter Care Teams Armature Balancer Relationship Specialty Start Date End Date Jewels Sorto APRN PCP - General 05/24/10 01/09/18 documented as of this encounter
--- OUTSIDE RECORDS SUMMARY | 2024-02-04 18:41 | XMS_ITS | Encounter Summary ---
Author Organization [facility] [place] [address] Care Team Providers Care Philosophy Faculty Name Role Phone Jewels Sorto Shruthi BAUM Primary Care Provider [phone] Encounter Details Date Type Department Care Team (Late Contact Info) Description 03/16/2015 Orders Only Radiation Oncology at [address] [phone] Maegan Eng MD [facility] [place] [address] Social History Tobacco Use Types Packs/Day Years [...] Office [place] [address] Roddy Olson MD [facility] [place] [address] documented as of this encounter Procedures Procedure Name Priority Date/Time Associated Diagnosis Comments FILM LIBRARY STORAGE ONLY RADIATION ONCOLOGY STUDIES Routine 03/16/2015 12:44 PM EDT documented in this encounter Results * Film Library Radiation Oncology Studies (03/16/2015 12:44 PM EDT) Anatomical Region Laterality Modality Other 03/16/2015 12:4 4 PM EDT Narrative 03/16/2015 12:44 PM EDT This is a Non-reportable exam Procedure Note KIM, UNSIGNED REPORT - 03/16/2015 This is a Non-reportable exam Maegan Eng MD [facility] [place] FILM LIBRARY ORD ERABLES documented in this encounter Visit Diagnoses Not on filedocumented in this encounter Care Teams Philosophy Faculty Relationship Specialty Start Date End Date Jewels Sorto APRN PCP - General 05/24/10 01/09/18 documented as of this encounter
--- OUTSIDE RECORDS SUMMARY | 2024-02-04 18:41 | XMS_ITS | Encounter Summary ---
Author Organization [facility] Address [facility] [place] [address] Care Team Providers Care Mobile Patrol Officer Name Role Phone NoreenLatishaandreas Hawkins APRN Primary Care Provider [phone] Reason for Visit * Reason Comments Follow Up Surgery Encounter Details Date Type Department Care Team (Late st Contact Info) Description 03/10/2015 1:45 PM EDT Office [place] [address] Shiloh Cruz MD [facility] [place] [address] Breast cancer, female, left Discharge Disposition: Home Social History Tobacco Use Types Packs/Day Years Used Date Smoking Tobacco: Every Day Cigarettes Smokeless Tobacco: Never Sex and Gender Information Value Date Recorded Sex Assigned at Not on file Gender Identity Not on file Sexual Orientation Not on file documented as of this encounter Last Filed Vital Signs Vital Sign Reading Time Taken Comments Blood Pressure 127/72 03/10/2015 1:43 PM EDT Pulse 74 03/10/2015 1:43 PM EDT Temperature 36.6 ??C (97.9 ??F) 03/10/2015 1:43 PM ED T Respiratory Rate 16 03/10/2015 1:43 PM EDT Oxygen Saturation 96% 03/10/2015 1:43 PM EDT Inhaled Oxygen Concentration - - Weight 89.8 kg (198 lb) 03/10/2015 1:43 PM EDT Height - - Body Mass Index 31.97 02/16/2015 10:30 AM EDT documented in this encounter Progress Notes * Shiloh Cruz MD - 03/10/2015 2:22 PM EDT Expand All Collapse All Subjective: Patient ID: Kelley Jensen is a 59 y.o. female. HPI Kelley returns today in surgical follow up of newly diagnosed left breast cancer. Kelley presented for screening mammography in November,. This revealed a concerning lesion in the upper, outer left breast. Additional imaging including mammogram and ultrasound confirmed a solid 8mm lesion. There was also a question of an axillary node. Biopsy of the breast revealed low to intermediate grade IDC which is ER/RI+ and HER2-. MRI was obtained which revealed a question of contralateral disease (work up benign) and a questionof an abnormal node (which was wire localized for surgery). Kelley opted for breast conservation with sentinel node excision including the wire localized node as well as a partial mastectomy. Post operatively, she doing well. She denies fevers, chills, drainage. rom of the arm is intact. FH: brother with cystic adenoid carcinoma of the leg. No breast or ovarian cancer SH: with 2 daughters. 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 This is a source of stress. + smoker interested in cessation. Surgical pathology revealed: DIAGNOSIS CORRECTED REPORT (see Discussion) Specimen (s): A - Left partial mastectomy B - Left axillary sentinel nodes Histologic Type: Invasive ductal carcinoma Tumor Grade: Low (High, Intermediate, Low) Chjioj-Vqwow-Dvubfdydyt Score: 5 Tubular Differentiation: 1 Mitotic Rate: [...] receptors, and FISH performed on prior bx [id number] - see separate report. pTNM: ---pT1b N1a (AJCC, 7th edition, 2010) C - Left breast lateral margin, re-excsion: Fibrocystic changes with adenosis, columnar cell hyperplasia and usual ductal hyperplasia. On exam, Kelley is well appearing and in nad. Breast has well healed superior areolar incision. ROM of the arm intact. The breast is lifted. There is no drainage or erythema. A/P doing well s/p breast conservation for stage II low grade IDC. No evidence of surgical complications. Kelley will meet with Aurelio Jamil and Benjamín in [facility] to discuss adjuvant radiation andsystemic therapy. She has quit smoking and remains committed to cessation. Kelley will call me if any new questions arise. I will see her back upon completion of radiation (following planned chemo) with new baseline mammogram. * Shiloh Cruz MD - 03/10/2015 1:59 PM EDT Subjective: Patient ID: Kelley Jensen is a 59 y.o. female. HPI Kelley presents today with her daughter and . She is seen in surgical consultation at the request of Dr. Gaxiola. She presents to discuss newly diagnosed left breast cancer. Kelley presented for screening mammography. This revealed a concerning lesion in the upper, outer left breast. Additional imaging including mammogram and ultrasound confirmed a solid 8mm lesion. There was also a question of an axillary node. Biopsy of the breast revealed low to intermediate grade IDC which is ER/RI+ and HER2-. Kelley denies any breast masses, skin change or nipple discharge. She has no adenopathy or lymphedema. DIAGNOSIS CORRECTED REPORT (see Discussion) Specimen (s): A - Left partial mastectomy B - Left axillary sentinel nodes Histologic Type: Invasive ductal carcinoma Tumor Grade: Low (High, Intermediate, Low) Dpgvqx-Ntgya-Gpnsxxdovl Score: 5 Tubular Differentiation: 1 Mitotic Rate: [...] receptors, and FISH performed on prior bx [id number] - see separate report. pTNM: ---pT1b N1a (AJCC, 7th edition, 2010) C - Left breast lateral margin, re-excsion: Fibrocystic changes with adenosis, columnar cell hyperplasia and usual ductal hyperplasia. FH: brother with cystic adenoid carcinoma of [...] Assessment and Plan: 59 yo female with stage I IDC of the left breast.. Kelley has some back pain and pulmonary symptoms-will plan ct of chest to rule out underlying lung cancer and/or vertebral metastasis. We then discussed options for surgery. Kelley is aware that mastectomy and lumpectomy with radiationoffer the same overall survival and she is a candidate for lumpectomy. She is not at all interestedin mastectomy and we did not discuss this further. I will call Kelley with the results of the MRI and [...] well. We briefly touched upon systemic adjuvant therapy.Kelley understands that she will meet with medicaland radiation oncology post operatively. She is aware that chemotherapy may be indicated and understands that oncotype DX testing may be recommended if she is node negative (given that she is ER/RI+ and HER-). She is also aware that both radiation and endocrine therapy will be recommended. She would like to undergo radiation in [facility]. Risks of surgery including bleeding, infection, need for additional surgery and lymphedema were discussed and consent was obtained. I will call Kelley with results of CT scan and MRI when available rigoberto and we will finalize surgical plan at that time. documented in this encounter Plan of Treatment Upcoming Encounters Date Type Department Care Team (Late st Contact Info) Description 12/04/2024 11:00 AM EDT Office [place] [address] Roddy Olson MD [facility] [place] [address] documented as of this encounter Visit Diagnoses Diagnosis Breast cancer, female, left documented in this encounter Care Teams Mobile Patrol Officer Relationship Specialty Start Date End Date Jewels Sorto APRN PCP - General 05/24/10 01/09/18 documented as of this encounter
--- OUTSIDE RECORDS SUMMARY | 2024-02-04 18:41 | XMS_ITS | Encounter Summary ---
[place] [address] Care Team Providers Care Research Fellow Name Role Phone Jewels Sorto APRN Primary Care Provider [phone] Reason for Visit * Reason Comments Chemotherapy Cycle 4 AC * Medication Prior Authorization - Closed Specialty Diagnoses / Procedures Referred By Contac t Referred To Contact Hematology and Oncology Diagnoses Breast cancer, left breast Procedures TC DOXORUBICIN HCL, 10MG, INJECTION (ADRIAMYCIN) TC CYCLOPHOSPHAMIDE, 100MG (CYTOXAN) Hector Carey MD [address] [place] [id number] [facility] [place] Hem Onc [address] [place] [address] Referral ID Status Reason Start Date Expiration Date Visits Re quested Visits Authorized [id number] Closed 04/05/2015 04/04/2016 1 1 Encounter Details Date Type Department Care Team (Late st Contact Info) Description 05/13/2015 1:30 PM EST Infusion Hematology Oncology at [address] [address] Breast cancer, left breast Social [...] Progress Notes * Lily Garcia RN - 05/13/2015 4:12 PM EST INFUSION THERAPY ADMINISTRATION NOTES DIAGNOSIS: Breast Cancer CYCLE #: 4 REASON FOR VISIT: AC SUBJECTIVE Kelley offers no complaints. OBJECTIVE LAB DATA:WNL IV ACCESS: Mediport Pre administration: Chemotherapy orders independently verified for drug name, route, and dosage per patient's height, weight and BSA by Lily Garcia RN and Onsite Pharmacist. REACTIONS (DESCRIPTION, TIME, INTERVENTION AND EFFECTIVENESS) none ASSESSMENT Kelley was awake, alert and tolerated treatment well. PLAN Return to clinic per routine. documented in this encounter Plan of Treatment Upcoming Encounters Date Type Department Care Team (Late st Contact Info) Description 12/04/2024 11:00 AM EDT Office [place] [address] Roddy Olson MD [facility] [place] [address] documented as of this encounter Visit Diagnoses [...] weight), Intravenous, ONCE, 1 dose, On Jayshree 05/13/15 at 1500, Administer over 30 Minutes New Bag 05/13/2015 3:15 PM EST 1,242 mg 624.2 mL/hr dexamethasone (DECADRON) tablet 10 mg 10 mg, Oral, ONCE, 1 dose, On Jayshree 05/13/15 at 1415, Administer prior to chemotherapy, Routine Given 05/13/2015 2:15 PM EST 10 mg DOXOrubicin (ADRIAMYCIN) chemo injection 124.2 mg 124.2 mg (60 mg/m2/dose ? 2.07 m2 Treatment Plan BSA from Recorded weight), Intravenous, ONCE, 1 dose, On Jayshree 05/13/15 at 1500, Administer each syringe over a minimum of 3 minutes per syringe. Each Syringe contains 41.4 mg in 20.7 mL. Given 05/13/2015 3:01 PM EST 124.2 mg fosaprepitant (EMEND) 150 mg in sodium chloride 0.9% 155 mL infusion 150 mg, Intravenous, ONCE, 1 dose, On Jayshree 05/13/15 at 1415, Administer over 30 Minutes, Administer prior to chemotherapy New Bag 05/13/2015 2:21 PM EST 150 mg 310 mL/hr heparin, porcine 100 unit/mL flush 500 Units 500 Units, Intravenous, ONCE PRN, Starting on Jayshree 05/13/15 at 1345, Until Jayshree 05/13/15 at 1818, Line Care, Refer to Intravenous (IV) Procedure: Accessing Implanted Vascular Access Devices (654) procedure and/or Intravenous (IV) Job Aid: Adult Flushing & Catheter Care (9960) job aid for additional information regarding guidelines and administration., Routine Given 05/13/2015 3:50 PM EST 500 Units palonosetron (ALOXI) injection 0.25 mg 0.25 mg, Intravenous, ONCE, 1 dose, On Jayshree 05/13/15 at 1415, Administer over 30 seconds. Administer prior to chemotherapy, Routine Given 05/13/2015 2:15 PM EST 0.25 mg pegfilgrastim (NEULASTA) injection 6 mg 6 mg, Subcutaneous, ONCE, 1 dose, On Jayshree 05/13/15 at 1415, Routine Given 05/13/2015 3:50 PM EST 6 mg sodium chloride 0.9 % flush 5-20 mL 5-20 mL, Intravenous, EVERY 1 MIN PRN, Starting on Jayshree 05/13/15 at 1345, Until Jayshree 05/13/15 at 1818, Line Care, Flush pertains to all indwelling lines. Flush per protocol found in the job aid using the link provided on this medication record. Refer to Intravenous (IV) Job Aid: Adult Flushing & Catheter Care (3080) job aid for additional information regarding guidelines and administration., Routine Given 05/13/2015 3:50 PM EST 20 mLs documented in this encounter Care Teams Research Fellow Relationship Specialty Start Date End Date Jewels Sorto APRN PCP - General 05/24/10 01/09/18 documented as of this encounter
--- OUTSIDE RECORDS SUMMARY | 2024-02-04 18:41 | XMS_ITS | Encounter Summary ---
Author Organization [facility] Address [facility] [place] [address] Care Team Providers Care Police Sergeant Name Role Phone Jewels Sorto APRN Primary Care Provider [phone] Encounter Details Date Type Department Care Team (Latest Contact Info) Description 02/12/2015 9:10 AM EDT - 02/12/2015 11:59 PM EDT Hospital En[place] [phone] Other (abnormal) findings on radiological examination of breast Social History Tobacco Use Types [...] AM EDT Office [place] [address] Roddy Olson MD [facility] [place] [address] documented as of this encounter Procedures Procedure Name Priority Date/Time Associated Diagnosis Comments MAMMO CALL BACK DIAGNOSTIC EXTRA VIEW UNILATERAL Routine 02/12/2015 9:37 AM EDT Other (abnormal) findings on radiological examination of breast documented in this encounter Results * Mammo call back diagnostic extra view unilateral (02/12/2015 9:37 AM EDT) Anatomical Region Laterality Modality Breast N/A Mammography 02/12/2015 9:37 AM EDT Impressions 02/12/2015 12:27 PM EDT Impression: The additional lesions detected at MRI are sonographically consistent with benign fibroadenomata and retrospectively visualized back to the mammogram from 2012 consistent with a benign process. This patient should undergo ultrasound-guided preoperative wire localization for the known malignancy left breast lesion #1 which is sonographically apparent in the left upper outer quadrant as well as preoperative wire localization for the morphologically abnormal left axillary lymph node. BI-RADS Category 6: Known Biopsy-Proven Malignancy Narrative 02/12/2015 12:27 PM EDT Examination:CALL BACK DX EXTRA VIEW UNILAT/LEFT, MAMMO BREAST ULTRASOUND LIMITED/BILAT Indication:abnormal mri Comparison:This study was compared with prior images. MAMMOGRAM Technique: CC and true lateral views of the left breast were acquired with 2-D direct digital capture and 3-D tomosynthesis.Computer aided detection (CAD) was used. Findings: The known malignancy in the left upper outer quadrant posterior third is again observed (lesion 1). There is a smooth circumscribed 12 mm nodule at the left breast 9:30 radian unchanged compared with 2013 and benign (lesion 2). There is a partially obscured nodule at the left breast 1-2 o'clock radian 4 cm from the nipple measuring 11 mm, again retrospectively visualized and unchanged since 2013 (lesion 3) ULTRASOUND I personally performed directed ultrasound of the left axilla, directed ultrasound of the 2 nodules in the left breast as well as the nodule in the right breast at the 2:00 radian. Left breast lesion #2: This is a well-circumscribed homogeneously hypoechoic wider than tall nodule at the 10:00 radian 6 cm from the nipple measuring 15 mm in maximal diameter consistent with a benign fibroadenoma. Left breast lesion #3: This is a well-circumscribed nodule with peripheral tiny cysts which measures 12 mm in maximal diameter and is consistent with a benign fibroadenoma. Left axilla: There is a highly suspicious morphologically abnormal rounded lymph node in the left axilla which measures 9 mm in diameter. (A communication from Dr. Cruz indicates that she prefers to perform an ultrasound-guided wire localization preoperatively on the day of the surgery for this finding). Static images were made of a sonographically morphologically normal fatty replaced lymph node just superior to it. Right breast lesion #1: There is a homogeneously hypoechoic well-circumscribed nodule at the 2:00 radian 4 cm from the nipple measuring 8 mm unchanged compared with the mammogram 12/20/2012 and consistent with a benign fibroadenoma. Procedure Note Fior García MD - 02/12/2015 Examination:CALL BACK DX EXTRA VIEW UNILAT/LEFT, MAMMO BREAST ULTRASOUND LIMITED/BILAT Indication:abnormal mri Comparison:This study was compared with prior images. MAMMOGRAM Technique: CC and true lateral views of the left breast were acquired with2-D direct digital capture and 3-D tomosynthesis.Computer aided detection(CAD) was used. Findings: The known malignancy in the left upper outer quadrant posteriorthird is again observed (lesion 1). There is a smooth circumscribed 12 mm noduleat the left breast 9:30 radian unchanged compared with 2013 and benign(lesion 2). There is a partially obscured nodule at the left breast 1-2 o'clock radian4 cm from the nipple measuring 11 mm, again retrospectively visualized andunchanged since 2013 (lesion 3) ULTRASOUND I personally performed directed ultrasound of the left axilla, directed ultrasound of the 2 nodules in the left breast as well as the nodule inthe right breast at the 2:00 radian. Left breast lesion #2: This is a well-circumscribed homogeneouslyhypoechoic wider than tall nodule at the 10:00 radian 6 cm from the nipple [id number] mm in maximal diameter consistent with a benign fibroadenoma. Left breast lesion #3: This is a well-circumscribed nodule with peripheraltiny cysts which measures 12 mm in maximal diameter and is consistent with abenign fibroadenoma. Left axilla: There is a highly suspicious morphologically abnormal roundedlymph node in the left axilla which measures 9 mm in diameter. (A communicationfrom Dr. Cruz indicates that she prefers to perform an ultrasound-guidedwire localization preoperatively on the day of the surgery for this finding).Static images were made of a sonographically morphologically normal fattyreplaced lymph node just superior to it. Right breast lesion #1: There is a homogeneously hypoechoicwell-circumscribed nodule at the 2:00 radian 4 cm from the nipple measuring 8 mm unchangedcompared with the mammogram 12/20/2012 and consistent with a benign fibroadenoma. IMPRESSION Impression: The additional lesions detected at MRI are sonographically consistent with benign fibroadenomata and retrospectively visualized backto the mammogram from 2013 consistent with a benign process. This patient should undergo ultrasound-guided preoperative wirelocalization for the known malignancy left breast lesion #1 which is sonographicallyapparent in the left upper outer quadrant as well as preoperative wire localizationfor the morphologically abnormal left axillary lymph node. BI-RADS Category 6: Known Biopsy-Proven Malignancy Rigo Dalton MD IMShruthi MAMMO ORDERABLES documented in this encounter Visit Diagnoses Diagnosis Other (abnormal) findings on radiological examination of breast documented in this encounter Care Teams Police Sergeant Relationship Specialty Start Date End Date Jewels Sorto APRN PCP - General 05/24/10 01/09/18 documented as of this encounter
--- OUTSIDE RECORDS SUMMARY | 2024-02-04 18:41 | XMS_ITS | Encounter Summary ---
Author Organization [facility] [place] [address] Care Team Providers Care Barrel Lathe Operator Inside Name Role Phone Jewels Sorto APRN Primary Care Provider Encounter Details Date Type Department Care Team (Late st Contact Info) Description 02/12/2015 Telephone [place] [address] Mariajose Javed RN Social History Tobacco Use Types Packs/Day Years Used Date Smoking Tobacco: Every Day Cigarettes Smokeless Tobacco: Never Sex and Gender Information Value Date Recorded Sex Assigned at Not on file Gender Identity Not on file Sexual Orientation Not on file documented as of this encounter Miscellaneous Notes * Telephone Encounter - Mariajose Javed RN - 02/12/2015 1:29 PM EDT Comprehensive Breast Program Note Kelley Jensen is a 59 y.o. female with left breast cancer scheduled for partial mastectomy on 02/16/15. Radiology imaging from 02/12 with benign additional findings in left breast (#2, #3) and right breast. Per request of Dr. Cruz I contacted patient and left her a message that surgery is still scheduled for 02/16/15 (per Dr. Cruz: left partial mastectomy with NLOC, left SLNB, left axillary NLOC). Kelley is in agreement with plan for surgery on 02/16. She is aware she will receive a call on 02/15 in afternoon or evening from [facility] nurse to review arrival time and additional information. She would like to see medical and radiation oncologists post-operatively in [facility] (as appropriate). documented in this encounter Plan of Treatment Upcoming Encounters Date Type Department Care Team (Late st Contact Info) Description 12/04/2024 11:00 AM EDT Office [place] [address] Roddy Olson MD [facility] [place] [address] documented as of this encounter Visit Diagnoses Not on filedocumented in this encounter Care Teams Barrel Lathe Operator Inside Relationship Specialty Start Date End Date Jewels Sorto APRN PCP - General 05/24/10 01/09/18 documented as of this encounter
--- OUTSIDE RECORDS SUMMARY | 2024-02-04 18:41 | XMS_ITS | Encounter Summary ---
[place] [address] Care Team Providers Care Supervisor [employer] Name Role Phone Jewels Sorto APRN Primary Care Provider [phone] Encounter Details Date Type Department Care Team (Late st Contact Info) Description 02/16/2015 9:10 AM EDT - 02/16/2015 10:14 AM EDT Hospital Encounter [place] [phone] Social History Tobacco Use Types Packs/Day Years [...] AM EDT Office Visit [place] [address] Roddy Olson MD [facility] [place] [address] documented as of this encounter Procedures Procedure Name Priority Date/Time Associated Diagnosis Comments NM SENTINAL NODE INJECTION BREAST W IMAGING Routine 02/16/2015 10:05 AM EDT documented in this encounter Results * NM breast sentinel node injection (02/16/2015 10:05 AM EDT) Anatomical Region Laterality Modality Breast N/A Other 02/16/2015 10:0 5 AM EDT Narrative 02/16/2015 10:06 AM EDT This is a Non-reportable exam Procedure Note KIM, UNSIGNED REPORT - 02/16/2015 This is a Non-reportable exam Shiloh Cruz MD IMG NM ORDERABLES documented in this encounter Visit Diagnoses Not on filedocumented in this encounter Care Teams Supervisor [employer] Relationship Specialty Start Date End Date Jewels Sorto APRN PCP - General 05/24/10 01/09/18 documented as of this encounter
--- OUTSIDE RECORDS SUMMARY | 2024-02-04 18:41 | XMS_ITS | Encounter Summary ---
Author Organization [facility] [place] [address] Care Team Providers Care Family Medicine Physician Assistant Name Role Phone Jewels Sroto APRN Primary Care Provider [phone] Reason for Visit * Reason Comments Breast Cancer Encounter Details Date Type Department Care Team (Late st Contact Info) Description 05/13/2015 1:00 PM EST Office Visit Hematology/Oncology at [address] [address] Hector Carey MD [address] [place] [address] Breast cancer, left breast Social History [...] Sign Reading Time Taken Comments Blood Pressure 118/64 05/13/2015 12:49 PM EST Pulse 73 05/13/2015 12:49 PM EST Temperature 36.7 ??C (98.1 ??F) 05/13/2015 12:[address] Respiratory Rate 16 05/13/2015 12:49 PM EST Oxygen Saturation 100% 05/13/2015 12:49 PM EST Inhaled Oxygen Concentration - - Weight 90.7 kg (200 lb) 05/13/2015 12:49 PM EST Height 170 cm (5' 6.93) 05/13/2015 12:49 PM EST Body Mass Index 31.39 05/13/2015 12:49 PM EST documented in this encounter Progress Notes * Hector Carey MD - 05/13/2015 1:22 PM EST Diagnosis: 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 The tumor was 0.7 cm, low-grade, ER/MT positive, with 1 of 3 sentinel positive nodes. HER-2 was negative. Subjective: Kelley comes in today for cycle four of four planned chemotherapy treatments with Adriamycin and Cytoxan. These are being given adjuvantly in the treatment of her breast cancer with plans on 12 weekly Taxol treatments starting two to three weeks after today's treatment. We again discussed that plan and decided to bring her back on the 30 for the first of 12 planned weekly Taxol. She continues to do quite well overall with chemotherapy, and is really having a lot less trouble than most. She did get shingles and was put on Famvir for a week. With that, the lesions dried up and they are not hurting her whatsoever. There is only a little redness in the area that she had them on the right L1 dermatome. She has no other sequelae. Her breathing has been fine. She did not have any stomatitis. Nausea and vomiting was controlled and she is not having problems with constipation. Past medical history and social history were reviewed from one week ago and unchanged. Current Outpatient Prescriptions on File Prior to Visit Medication Sig Dispense Refill ??? hydrochlorothiazide (HYDRODIURIL) 25 mg Tablet Take 25 mg by mouth daily. ??? levothyroxine (SYNTHROID) 25 mcg Tablet Take by mouth daily. 0 ??? simvastatin (ZOCOR) 40 mg Tablet Take 40 mg by mouth nightly. 0 ??? [DISCONTINUED] valACYclovir (VALTREX) 1 gram Tablet Take 1 tablet by mouth 2 times daily. 14 tablet 0 ??? 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 Hematological: Negative for adenopathy. BP 118/64 mmHg Pulse 73 Temp(Src) 36.7 ??C (98.1 ??F) (Oral) Resp 16 Ht 170 cm (5' 6.93) Wt 90.719 kg (200 lb) BMI 31.39 kg/m2 SpO2 100% Head: Normocephalic, without obvious [...] Normal Review of her lab today shows a normal electrolyte pattern. Potassium 3.6. Creatinine is 0.73. Bilirubin is 0.29. Alkaline phosphatase 109. Calcium is normal at 8.7. CBC shows a white count of 10.6, hemoglobin 11.1, hematocrit 31.4, and platelets are 259. Assessment/Plan: Kelley is doing well with the chemotherapy and is fine today for cycle four of four planned treatments with Adriamycin and Cytoxan. We will go ahead with that as planned. Her antiemetics have been effective, and she has not had any significant nausea or vomiting, so no change is made in those. She has some chemotherapy-associated anemia, which we will continue to follow. It often does get better when we switch to the Taxol part of the chemotherapy, but occasionally patients do need a transfusion. We went over the new chemotherapy regimen in detail along with risks and side effects and concerns about that and how that would go. We discussed the timing of that and we have decided in view of the holiday to start her on the , which is a few days delay. Will check blood counts that day and see her back in anticipation of starting treatment at that time. She will call if there are issues or problems in the interim. documented in this encounter Plan of Treatment Upcoming Encounters Date Type Department Care Team (Late st Contact Info) Description 12/04/2024 11:00 AM EDT Office Visit Thor[place] [address] Roddy Olson MD [facility] [place] [address] documented as of this encounter Procedures Procedure Name Priority Date/Time Associated Diagnosis Comments LAB SCAN 05/13/2015 12:00 AM EST documented in this encounter Results * SCAN DOC: LAB (05/13/2015 12:00 AM EST) Scanning Provider MEDIA MGR SCAN EXT O RDR/RSLT documented in this encounter Visit Diagnoses Diagnosis Breast cancer, left breast Malignant neoplasm of breast (female), unspecified site documented in this encounter Care Teams Family Medicine Physician Assistant Relationship Specialty Start Date End Date Jewels Sorto APRN PCP - General 05/24/10 01/09/18 documented as of this encounter
--- OUTSIDE RECORDS SUMMARY | 2024-02-04 18:41 | XMS_ITS | Encounter Summary ---
Author Organization [facility] Address [facility] [place] [address] Care Team Providers Care Seal Skinner Name Role Phone Noreen Jewels Hawkins APRN Primary Care Provider [phone] Encounter Details Date Type Department Care Team (Latest Contact Info) Description 03/16/2015 9:00 AM EDT Ancillary Appointment Radiation Oncology at [address] [address] Maegan Eng MD [facility] [place] [address] Breast cancer, female, left Social History Tobacco [...] * Patient Instructions* Cristy Gordon RN - 03/16/2015 8:49 AM EDT Information for Patients receiving radiation therapy to the Breast Approximately two weeks after your first treatment, you may begin to experience side effects causedby the radiation. These effects may continue throughout the treatment period and not start improving until 1-2 weeks after treatment is completed. Your doctor will tell you which side effects you aremost likely to experience, when you will notice them and how long they might last. It is important to follow the appropriate instructions to minimize your discomfort. Skin Care ??? Wash skin in the treatment field with lukewarm water and mild or moisturizing soap daily. Blot skin dry with a soft towel. ??? Do not apply any ointment, salve, deodorant, perfume, cologne, cosmetic or self-remedy to the treatment area while you are undergoing radiation and for 1-2 weeks following treatment. An all natural deodorant with no aluminum can be used if necessary. ??? Moisturizing cream will be provided for you. This may be used in the treatment area once daily beginning on your first treatment day. Do not apply 2 hours before your radiation treatments. As dryness/redness develop you can use this more often. ??? Do not rub or scratch the skin in the treatment field. This includes shaving unless you use an electric razor. If your skin becomes dry or itchy, tell your nurse or doctor. If necessary, your doctor may order a medication specifically for this problem. ??? Do not use hot water bottles, heating lights, electric heating pads, or hot packs to the treatment area. ??? Keep treated areas out of the sun throughout the treatment period. Be careful of sun exposure to the treatment field for one year following treatment. Please use SPF> 30 to all exposed areas of skin and limit sun exposure. ??? Avoid tight fitting clothes. We would prefer that you wear a cotton t-shirt instead of a bra. If you are unable to go without a bra please wear a soft cotton bra without underwire. ??? Examine your skin in the treatment area daily and watch for changes. If you cannot reach the whole treatment field ask a family member to look at it and apply cream as needed. Be careful to keep the area under your breast clean and dry as this area can get irritated first. ??? You will meet with your nurse and doctor weekly. They will check your skin and help you with any side effects you are having. Please ask to see the nurse if you have concerns in between these days. ??? During the last weeks of treatment you may notice some peeling of skin and/or a moist reaction.Be sure to let us know if this happens so we can provide you with further skin care instructions.. ??? Continue to stay active, walk daily, eat healthy foods and drink several glasses of water each day. Fatigue You may notice that you feel unusually tired towards the end of treatment. This is not unusual. We recommend that you pace your activities and plan for rest periods to avoid becoming over-tired. Feel free to direct any questions or concerns you may have related to your treatment to your nurse or doctor. [facility] Radiation Oncology Our normal business hours are: Sunday - Sunday 8 AM to 5 PM [place], [place], [place] For emergent situations after hours please call for either location and ask for the Radiation Oncologist verification manager. documented in this encounter Progress Notes * Maegan Eng MD - 03/16/2015 4:58 PM EDT Here for sim. Since I last saw her: 03/10/15 postop check w/Dr. Cruz; to rtc after xrt completion w/mmg. 03/15/[address] Carey; chemo planned. Sim: Custom cushion w/breast bd immobilization; flat bbs on L breast lumpectomy scar; CT through neck & chest showed heart to approach L chest wall, & so she was then instructed in deep inspiration breath hold (DIBH) & 2nd CT done w/DIBH; 3D xrt planned. She tolerated sim well, w/o problem. Tx Plan: 3D xrt. Beam films 08/20/15. Start xrt 09/06/15. * Cristy Gordon RN - 03/16/2015 9:23 AM EDT Radiation Oncology Simulation Note Kelley Jensen is here for radiation planning , undergoing a simulation to the left breast, scax for breast cancer treatment . Usual radiation oncology routines and purpose of on treatment visits were explained. Jeans cream provided and instructions for use reviewed Anticipatory Guidance: see AVS. Barriers to Treatment/ Compliance issues identified: None. Will start xrt 3-4 weeks following chemo. Patient confirms they can have no difficulties lying flat. yes pre- medication plan made: None needed Referrals: Patient planning to call PAVITHRA Gutierrez whom she has met with previously for disability related questions. documented in this encounter Plan of Treatment Upcoming Encounters Date Type Department Care Team (Late st Contact Info) Description 12/04/2024 11:00 AM EDT Office Visit [place] [address] Roddy Olson MD [facility] [place] [address] documented as of this encounter Visit Diagnoses Diagnosis Breast cancer, female, left documented in this encounter Care Teams Seal Skinner Relationship Specialty Start Date End Date Jewels Sorto APRN PCP - General 05/24/10 01/09/18 documented as of this encounter
--- OUTSIDE RECORDS SUMMARY | 2024-02-04 18:41 | XMS_ITS | Encounter Summary ---
Author Organization [facility] [place] [address] Care Team Providers Care M1A1 Tank Crewman Name Role Phone Noreen Jewelsandreas Hawkins APRN Primary Care Provider [phone] Reason for Visit * Reason Onset Date Comments Cough 05/21/2015 Encounter Details Date Type Department Care Team (Late st Contact Info) Description 05/21/2015 Telephone Hematology/Oncology at [address] [address] Lily Garcia RN Cough Social History Tobacco Use Types Packs/Day Years [...] encounter Miscellaneous Notes * Telephone Encounter - Lily Garcia RN - 05/21/2015 8:19 AM EST Date/Time: 05/21/15 0810 Call Taken By: Lily Garcia RN Patient Name: Kelley Pintouis Reason For Call: Patient called this morning with complaints of continued cough and congestion. Temperature of 99.2. Assessment: Patient denies productive cough, temp has not gone over 99.2. Patient offers that she feels poorly.4th Cycle of AC completed on 05/13. Action Taken: Phone call placed to patient's PCP's office- Jewels Sorto @ [place] [phone], appointment made for 09 today, patient notified. Dr. Carey was notified of the above - note routed to him. documented in this encounter Plan of Treatment Upcoming Encounters Date Type Department Care Team (Late st Contact Info) Description 12/04/2024 11:00 AM EDT Office Visit [place] [address] Roddy Olson MD [facility] [place] [address] documented as of this encounter Visit Diagnoses Not on filedocumented in this encounter Care Teams M1A1 Tank Crewman Relationship Specialty Start Date End Date Jewels Sorto APRN PCP - General 05/24/10 01/09/18 documented as of this encounter
--- OUTSIDE RECORDS SUMMARY | 2024-02-04 18:41 | XMS_ITS | Encounter Summary ---
Author Organization [facility] Address [facility] [place] [address] Care Team Providers Care Color Room Attendant Name Role Phone Jewels Sorto APRN Primary Care Provider [phone] Encounter Details Date Type Department Care Team (Latest Contact Info) Description 02/02/2015 7:27 AM EDT - 02/02/2015 11:59 PM EDT Hospital Encounter [place] [phone] Malignant neoplasm of breast (female), unspecified site Social History Tobacco Use Types Packs/Day Years [...] AM EDT Office Visit [place] [address] Roddy Olson MD [facility] [place] [address] documented as of this encounter Procedures Procedure Name Priority Date/Time Associated Diagnosis Comments CT CHEST W CONTRAST Routine 02/02/2015 7 :52 AM EDT documented in this encounter Results * CT chest with contrast (02/02/2015 7:52 AM EDT) Anatomical Region Laterality Modality Chest Computed Tomogra phy 02/02/2015 7:52 AM EDT Impressions 02/02/2015 8:09 AM EDT Impression: Bilateral centrilobular emphysematous disease. No pulmonary nodules. Narrative 02/02/2015 8:09 AM EDT EXAMINATION: CT Chest With Contrast CLINICAL HISTORY: back pain,cough/current smoker/breast cancer rule out malignantcy TECHNIQUE: Helical CT of the chest was performed following intravenous administration of 60ml of Ominpaque 350. Multiplanar reformatted images were generated. COMPARISON: None ? FINDINGS: Lungs and airways: Bilateral Upper lobe [...] Scattered degenerative changes of the thoracic spine. ? Procedure Note Ming Castaneda MD - 02/02/2015 EXAMINATION: CT Chest With Contrast CLINICAL HISTORY: back pain,cough/current smoker/breast cancer rule out malignantcy TECHNIQUE: Helical CT of the chest was performed following intravenous administration of 60ml of Ominpaque 350. Multiplanar reformatted imageswere generated. COMPARISON: None ? FINDINGS: Lungs and airways: Bilateral Upper lobe moderate centrilobularemphysematous changes. No pulmonary nodules. No areas of airspace consolidation. Pleura and pericardium: No pleural effusions. No pericardial effusion. Heart and vasculature: Grossly unremarkable. Mediastinum and hilar structures: No mediastinal or hilar lymphadenopathy.No axillary adenopathy. Limited views of the upper abdomen are remarkable for an 8 mm hypodensefocus seen in the left lobe of the liver, likely a small cyst or hemangioma. No suspicious osseous lesions. Scattered degenerative changes of thethoracic spine. ? IMPRESSION Impression: Bilateral centrilobular emphysematous disease. No pulmonary nodules. Shiloh Cruz MD IMG CT ORDERABLES documented in this encounter Visit Diagnoses Diagnosis Malignant neoplasm of breast (female), unspecified site documented in this encounter Administered Medications Inactive Administered Medications - up to 3 most recent administrations Medication Order MAR Action Action Date Dose Rate Site iohexol (OMNIPAQUE) 350 mg/mL solution 21,000 mg 21,000 mg (60 mL), Intravenous, ONCE PRN, 1 dose, Starting on Tu02/02/15 at 0745, Until 02/02/15 at 0800, Per Protocol, Routine Given 02/02/2015 8:00 AM EDT 21,000 mg documented in this encounter Care Teams Color Room Attendant Relationship Specialty Start Date End Date Jewels Sorto APRN PCP - General 05/24/10 01/09/18 documented as of this encounter
--- OUTSIDE RECORDS SUMMARY | 2024-02-04 18:41 | XMS_ITS | Encounter Summary ---
Author Organization [facility] Address [facility] [place] [address] Care Team Providers Care Sanitation Officer Name Role Phone [employer]els ca Shruthi BAUM Primary Care Provider [phone] Reason for Visit * Reason Comments Radiation Consult Encounter Details Date Type Department Care Team (Late st Contact Info) Description 03/01/2015 10:00 AM EDT Office Visit Radiation Oncology at [address] [phone] Maegan Eng MD [facility] [place] [address] Breast cancer, female, left Discharge Disposition: Home [...] Sign Reading Time Taken Comments Blood Pressure 117/63 03/01/2015 9:57 AM EDT Pulse 79 03/01/2015 9:57 AM EDT Temperature 36.8 ??C (98.2 ??F) 03/01/2015 9:57 AM ED T Respiratory Rate 18 03/01/2015 9:57 AM EDT Oxygen Saturation 96% 03/01/2015 9:57 AM EDT Inhaled Oxygen Concentration - - Weight 89.4 kg (197 lb) 03/01/2015 9:57 AM EDT Height - - Body Mass Index 31.81 02/16/2015 10:30 AM EDT documented in this encounter Progress Notes * Maegan Eng MD - 03/01/2015 10:18 AM EDT Images from the original note were not included. CC: Referred by Neris Sorto APRN, for eval for xrt for breast ca. HPI: 59 y/o f who underwent screening mmg which showed abnlty in L breast. [facility] interp outside mmgs & US from 12/16/14, 12/04/14, 12/20/12: Suspicious solid mass @ 2:00 in L breast & morphologically abnl ax lymph node. 01/12/15 US guided needle bxs L breast lesion #1 @ 1 o'clock. Path: IDC, low to intermed gr, ER+NM+, [id number]-. 01/28/[address] Cruz, w/exam showing no palpable breast mass/adenopathy. 02/02/15 CT ch: B centrilobular emphysematous dz. 8 mm hypodense focus in L lobe liver, likely small cyst/hemangioma. 02/08/15 MRI B Breasts: L breast lesion [...] R AXILLA: Visualization adequate, no suspicious node. 02/12/15 L mmg & L ax w/B breast US: The additional lesions detected @ MRI in breasts (includingR breast) are sonographically consistent w/benign fibroadenomata & retrospectively visualized back to mmg from 2012 consistent w/benign process. Morphologically abnl L ax lymph node. 02/16/15 NLOC L breast lumpectomy @ 1 o'clock w/inclusion of underlying fascia & NLOC of suspicious L ax node @ 1 o'clock w/SNB. No palpable adenopathy excepting the suspicious NLOC'd node. Tissuererrangement to close space & bx cavity clips placed for rad onc prior to closure. Rearranged tissue 7 x 6 cm. Specimen mmg showed mass, bx clip & loc wire. Path: IDC, low gr, 0.7 cm, +DCIS (minor), no ALI, RM involved by invasive ca @ lateral RM, w/reexcision of lat RM neg; RM neg for DCIS, closest RM to DCIS = 0.2 cm; 3 ax lymph nodes (all sentinel, 1 + for met [macromet, largest deven deposit 1.0 cm, no ALBERTO], 2 nodes neg); pT1b pN1a. 02/24/15 Comprehensive Breast Program Tumor Bd: No indication for ALND given Z11 parameters. Rec MedOnc & Rad Onc consults. 03/10/15 fu w/Dr. Cruz. 03/15/[address] Carey for systemic tx. Healing ok. Residual discomfort @ surg site of level 5, adequately controlled by ibuprofen 600 mg 2- 3 times/d (takes pain down to level 1). No hand/arm swelling. ROM of arms around shoulders nl. Appetite good. Energy level ok. Accompanied by daughter. No past medical history on file. Past Surgical History Procedure Laterality Date ??? Pro excise breast les w xray marker Left 02/16/2015 EXCISION LESION, BREAST W/ PREOP.MARKER (NEEDLE LOC.) performed by Shiloh Cruz MD at [facility] ??? Pro bx/remv, lymph node, deep axill Left 02/16/2015 BIOPSY OR EXCISION OF LYMPH NODE(S), OPEN, DEEP AXILLARY NODE(S) performed by Shiloh Cruz MD at [facility] ??? Pro identify sentinel node Left 02/16/2015 SENTINEL NODE INJECTION performed by Shiloh Cruz MD at [facility] ??? Left 02/16/2015 MODIFIER WITH NEEDLE LOC. performed by Shiloh Cruz MD at [facility] ??? Left 02/16/2015 MODIFIER SENTINEL NODE EXCISION performed by Shiloh Cruz MD at [facility] Physical Exam Constitutional: She is oriented to person, place, and time. She appears well- developed and well-nourished. No distress. BP 117/63 mmHg Pulse 79 Temp(Src) 36.8 ??C (98.2 ??F) Resp 18 Wt 89.359 kg (197 lb) SpO2 96% HENT: Head: Normocephalic and atraumatic. Eyes: Conjunctivae [...] change and no tenderness. Left breast exhibits tenderness (M ildly tender to palpation in UOQ.). Left breast exhibits no inverted nipple, no mass, no nipple discharge and no skin change. Abdominal: Soft. She exhibits no distension and [...] is normal. Judgment and thought contentnormal. A: Breast ca, L, IDC, low gr, ER+NM+, [id number]-, s/p lumpectomy & SNB, pT1b pN1a, stage II. P: Xrt to L breast & regional lymphatics rec'd to improved likelihood of ca control. Xrt would be comprised of 33 fxs. If chemo is given, usually xrt starts 3 - 4 wks after last cycle of chemo. Possible side effects of xrt discussed, w/acute/immediate side effects including: Pinkening, soreness & peeling of skin in treated area; swelling of treated area; soreness of treated area; cough;shortness of breath; sore throat; sense of fullness in throat; swelling of L hand/arm, which could be permanent; numbness, tingling, weakness & difficulty coordinating L hand/arm; tiredness. Late/intermission coordinator side effects of xrt discussed include: Treated L breast may tighten, become firmer & sit higher; achiness/stiffness of chest wall on treated side; possible increase in risk of dying of heart disease (from baseline risk of 1.9% up to 2.4%); L sided rib fracture; CT after xrt may show scarring w/in small volume of lung on treated side; permanent swelling of L hand/arm; small riskof irradiation assoc'd 2nd malignancy. Need for CTsim prior to xrt discussed. We discussed how she would be eval'd for use of deep inspiration breath hold (DIBH) to decrease dose of xrt to heart. She would like to proceed w/plan for xrt. CTsim 03/16/15. She requested a letter excusing her from work. 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 Letter provided, excusing her from work until 06/01/15 @ earliest. 25 mins of 40 min face to face visit w/Kelley spent discussing rationale for xrt; hoped for benefit of xrt; possible side effects/complications of xrt; prevention/management of side effects/complications of xrt; logistics of daily xrt; timing of xrt vis a vis chemo; CTsimulation w/eval for DIBH; armposition required for xrt; followup after completion of xrt. * Cristy Gordon RN - 03/01/2015 9:35 AM EDT RADIATION ONCOLOGY NURSING INITIAL NURSING ASSESSMENT IDENTIFICATION: Kelley Jensen is a 59 y.o. year-old female with left breast cancer PRESENTING SYMPTOMS/CHIEF COMPLAINT: noted on screening mammogram prompting further work up. REVIEW OF SYSTEMS:Review of Systems Constitutional: Positive for activity change. Negative for unexpected weight change. Fatigue: napping during day post op. Eyes: Visual disturbance: wears glasses for reading. Respiratory: Positive for cough (dry cough off and on nonproductive). Shortness of breath: during ahot flash. Cardiovascular: Negative for chest pain, palpitations and leg swelling. Gastrointestinal: Negative for nausea, vomiting, diarrhea and constipation. Genitourinary: Negative for dysuria. Musculoskeletal: Negative for back pain and arthralgias. Neurological: Negative for light-headedness, numbness and headaches. Prior Radiotherapy: No [x] Prior Chemotherapy: No [x] Prior Hormone Therapy: No [x] MENDOZA FALL RISK ASSESSMENT SCORE: 0 RADIOLOGY SAFETY QUESTIONS REVIEWED: no. Does need oral sedation for MRI's but generally is not claustrophobic. LEARNING ASSESSMENT REVIEWED: yes ADVANCED DIRECTIVE: has document to fill out at home but has not yet completed. PAIN ASSESSMENT: [4] out of 10 *eD-H Adult PCS Flow Sheet if 4 or above SOCIAL ASSESSMENT: See EDH social assessment information entered. Support Systems: Here today with daughter Elise. Family, coworkers supportive. Barriers to treatment: Workplace closing likely at end of this year. Will lose her current health insurance at that time. Referrals/Interventions: PRODUCTION STAGE MANAGER prn. Interested in meeting with integrity assessor at some point when she is here for other appointments. RADIATION SPECIFIC TEACHING: [facility] Site specific teaching : Other: PLAN: Per Dr. Eng documented in this encounter Plan of Treatment Upcoming Encounters Date Type Department Care Team (Late st Contact Info) Description 12/04/2024 11:00 AM EDT Office Visit [place] [address] Roddy Olson MD [facility] [place] [address] documented as of this encounter Visit Diagnoses Diagnosis Breast cancer, female, left documented in this encounter Care Teams Sanitation Officer Relationship Specialty Start Date End Date Jewels Sorto APRN PCP - General 05/24/10 01/09/18 documented as of this encounter
--- OUTSIDE RECORDS SUMMARY | 2024-02-04 18:41 | XMS_ITS | Encounter Summary ---
Author Organization [facility] [place] [address] Care Team Providers Care Special Systems Technician Name Role Phone Jewels Sorto APRN Primary Care Provider [phone] Encounter Details Date Type Department Care Team (Late st Contact Info) Description 05/17/2015 Telephone Hematology Oncology at [address] [phone] Shantelle Cruz RN Social History Tobacco Use Types Packs/Day [...] encounter Miscellaneous Notes * Telephone Encounter - Shantelle Cruz RN - 05/17/2015 11:30 AM EST Telephone call from patient who reports that she has a cold. Reports dry, nonproductive cough with dry chest congestion. States I'm hacking a lot and my nose is runny. No fevers. No sore throat. Wonders what she can take for the cough. States that she used Robitussin or a generic brand flu relief therapy in the past with good symptom relief. Instructed patient that she can take either one of those things for symptoms of cold. Instructed that she call the clinic with any fevers of 100.4 or higher, worsening cough or other new symptoms. Instructed her to push fluids and get plenty of rest. She verbalized understanding. Will notify Dr. Carey via this note. documented in this encounter Plan of Treatment Upcoming Encounters Date Type Department Care Team (Late st Contact Info) Description 12/04/2024 11:00 AM EDT Office [place] [address] Roddy Olson MD [facility] [place] [address] documented as of this encounter Visit Diagnoses Not on filedocumented in this encounter Care Teams Special Systems Technician Relationship Specialty Start Date End Date Jewels Sorto APRN PCP - General 05/24/10 01/09/18 documented as of this encounter
--- OUTSIDE RECORDS SUMMARY | 2024-02-04 18:41 | XMS_ITS | Encounter Summary ---
Author Organization [facility] Address [facility] [place] [address] Care Team Providers Care Nail Expert Name Role Phone [employer] ca Shruthi BAUM Primary Care Provider [phone] Encounter Details Date Type Department Care Team (Late st Contact Info) Description 03/29/2015 Notes Only Hematology Oncology at [address] [phone] Cinthia Costello CIRCULATION MAN OFFICE OF CARE MANAGEMENT Social History Tobacco [...] Progress Notes * Cinthia Costello MSW - 03/30/2015 2:19 PM EDT Reason for Referral: Brief assessment of social and emotional needs. Met with pt and duringinfusion on 03-29-15. Reviewed noted form PAVITHRA Gutierrez. Social Supports: pt has been to her Daniel for 12 years. She has 2 daughters and both live nearby. Living Situation/Daily Activities/Transportation: pt and manage the daily chores and activities. She does not expect any issues with transportation. Work/Finances/Insurance: Pt works but is out on short term disability. 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 She plans to discusswith HR. Pt indicate they are just managing financially. Inquired if she looked at any financial resources PAVITHRA Gutierrez shared with her but pt has not has a chance yet. Advance Directives: Pt has not completed her advance directives. She does have the document and plans to review it. Utilization of Community Resources: Pt agreeable to participate in the [place] [facility] as her PCP is at the [facility]. Provided her with the program brochure and will outreach [facility] Chronic Belt Loop Maker there. Adjustment to Illness/Mental Health Issues: Pt indicated she is coping the best she can and has good support from her family. Identified Needs: Pt did not have any specific needs at this time. Referrals: VOP Plan: Informed pt of my availability and will follow to assist as needed. documented in this encounter Plan of Treatment Upcoming Encounters Date Type Department Care Team (Late st Contact Info) Description 12/04/2024 11:00 AM EDT Office [place] [address] Roddy Olson MD [facility] [place] [place] [address] documented as of this encounter Visit Diagnoses Not on filedocumented in this encounter Care Teams Nail Expert Relationship Specialty Start Date End Date Jewels Sorto APRN PCP - General 05/24/10 01/09/18 documented as of this encounter
--- OUTSIDE RECORDS SUMMARY | 2024-02-04 18:41 | XMS_ITS | Encounter Summary ---
Author Organization [facility] [place] [address] Care Team Providers Care Director Presales Name Role Phone Jewels Sorto Shruthi BAUM Primary Care Provider [phone] Encounter Details Date Type Department Care Team (Late Contact Info) Description 04/12/2015 9:30 AM EDT Office Visit Hematology/Oncology at [address] [phone] Hebert Elizabeth MD [facility] [address] [place] [address] Social History Tobacco Use Types Packs/Day Years [...] AM EDT Office [place] [address] Roddy Olson MD [facility] [place] [address] documented as of this encounter Visit Diagnoses Not on filedocumented in this encounter Care Teams Director Presales Relationship Specialty Start Date End Date Jewels Sorto APRN PCP - General 05/24/10 01/09/18 documented as of this encounter
--- OUTSIDE RECORDS SUMMARY | 2024-02-04 18:41 | XMS_ITS | Encounter Summary ---
Author Organization [facility] [place] [address] Care Team Providers Care Supervisor Special Education Name Role Phone Jewels Sorto APRN Primary Care Provider [phone] Reason for Visit * Reason Comments Breast Cancer Encounter Details Date Type Department Care Team (Late st Contact Info) Description 05/31/2015 9:00 AM EST Office Visit Hematology/Oncology at [address] [phone] Hector Carey MD [address] [place] [address] Malignant neoplasm of female breast, left; Breast cancer, left breast Social History Tobacco [...] Sign Reading Time Taken Comments Blood Pressure 128/72 05/31/2015 8:30 AM EST Pulse 81 05/31/2015 8:30 AM EST Temperature 36.4 ??C (97.5 ??F) 05/31/2015 8:30 AM ES T Respiratory Rate 18 05/31/2015 8:30 AM EST Oxygen Saturation 100% 05/31/2015 8:30 AM EST Inhaled Oxygen Concentration - - Weight 90.5 kg (199 lb 8 oz) 05/31/2015 8:30 AM EST Height 170 cm (5' 6.93) 05/31/2015 8:30 AM EST Body Mass Index 31.31 05/31/2015 8:30 AM EST documented in this encounter Progress Notes * Hector Carey MD - 05/31/2015 8:45 AM EST Diagnosis: 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 The tumor was 0.7 cm, low-grade, ER/NJ positive, with 1 of 3 sentinel positive nodes. HER-2 was negative. Subjective: Kelley comes in today for her first week of Taxol. Plans are for 12 weekly treatments in the adjuvant treatment of her breast cancer. She just finished at full doses and on time four cycles of dose dense Adriamycin and Cytoxan. This last cycle went reasonably well. She did have an upper respiratory tract infection and was on a Z-Sloan but that is getting better now. She is still using an inhaler overall, which she originally used when she was smoking. She notes she is a little bit more wheezy since she has quit smoking but that is often the case. She understands that. She is not really having any significant shortness of breath and the inhaler is working well. We discussed tapering off of that now that her cold is improving. As far as her new chemotherapy goes, we did chemotherapy teaching today and I went over the risks and side effects of the chemotherapy and the most common things associated with that. We discussed neuropathy, nail changes, the possibility of allergic reactions, and what I expect her blood counts to do with treatment. All of her questions were answered and she does wish to proceed with the chemotherapy. Past medical history and social history were [...] her breast cancer. 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 Hematological: Negative for adenopathy. BP 128/72 mmHg Pulse 81 Temp(Src) 36.4 ??C (97.5 ??F) (Oral) Resp 18 Ht 170 cm (5' 6.93) Wt 90.493 kg (199 lb 8 oz) BMI 31.31 kg/m2 SpO2 100% Head: Normocephalic, without obvious [...] axillary nodes normal Neurologic: Normal Review of lab today shows a white count of 5.67, hemoglobin 10.2, hematocrit 30.1, and platelet count of 343. CMP is fine for treatment. Assessment/Plan: Kelley is doing well overall and is fine today to start her first of 12 weekly Taxol treatments at 80 mg per meter squared. We will continue to use Aloxi as an antiemetic but she will not need Neulasta with this chemotherapy. We will plan on seeing her back next week with a port draw CBC and CMP prior to that appointment. She will call if she has any significant rash, allergic reactions, difficulties with myalgias or arthralgias, or other problems. I did tell her if she has nausea problems we could consider adding Emend to her chemotherapy but at this point I think she should do fine without it. She will call if there are issues or problems in the interim. documented in this encounter Plan of Treatment Upcoming Encounters Date Type Department Care Team (Late st Contact Info) Description 12/04/2024 11:00 AM EDT Office [place] [address] Roddy Olson MD [facility] DR [place]AC[place] [address] documented as of this encounter Procedures Procedure Name Priority Date/Time Associated Diagnosis Comments LAB SCAN 05/31/2015 12:00 AM EST documented in this encounter Results * SCAN DOC: LAB (05/31/2015 12:00 AM EST) Scanning Provider MEDIA MGR SCAN EXT O RDR/RSLT documented in this encounter Visit Diagnoses Diagnosis Malignant neoplasm of female breast, left Breast cancer, left breast Malignant neoplasm of breast (female), unspecified site documented in this encounter Care Teams Supervisor Special Education Relationship Specialty Start Date End Date Jewels Sorto APRN PCP - General 05/24/10 01/09/18 documented as of this encounter
--- OUTSIDE RECORDS SUMMARY | 2024-02-04 18:41 | XMS_ITS | Encounter Summary ---
Author Organization [facility] Address [facility] [place] [address] Care Team Providers Care Finisher [employer] Name Role Phone Jewels Sorto APRN Primary Care Provider [phone] Encounter Details Date Type Department Care Team (Late st Contact Info) Description 02/16/2015 8:31 AM EDT - 02/16/2015 9:09 AM EDT Hospital En[place] [phone] Social History Tobacco Use Types Packs/Day Years [...] AM EDT Office [place] [address] Roddy Olson MD [facility] [place] [address] documented as of this encounter Procedures Procedure Name Priority Date/Time Associated Diagnosis Comments MAMMO SPECIMEN Routine 02/16/2015 1:34 PM EDT documented in this encounter Results * Mammo Specimen (02/16/2015 1:34 PM EDT) Anatomical Region Laterality Modality Breast N/A Mammography 02/16/2015 1:34 PM EDT Narrative 02/16/2015 2:10 PM EDT EXAMINATION: MAMMOGRAM SPECIMEN/LEFT CLINICAL HISTORY: PLEASE ASSESS STAINING FOR CLEAR MARGINS FINDINGS: The mass, biopsy clip, and localization wire are centered within the specimen with large margin of surrounding tissue. Procedure Note Salma Farooq MD - 02/16/2015 EXAMINATION: MAMMOGRAM SPECIMEN/LEFT CLINICAL HISTORY: PLEASE ASSESS STAINING FOR CLEAR MARGINS FINDINGS: The mass, biopsy clip, and localization wire are centered within thespecimen with large margin of surrounding tissue. Shiloh Cruz MD IMG MAMMO ORDERABLE S documented in this encounter Visit Diagnoses Not on filedocumented in this encounter Care Teams Finisher [employer] Relationship Specialty Start Date End Date Jewels Sorto APRN PCP - General 05/24/10 01/09/18 documented as of this encounter
--- OUTSIDE RECORDS SUMMARY | 2024-02-04 18:41 | XMS_ITS | Encounter Summary ---
Author Organization [facility] Address [facility] [place] [address] Care Team Providers Care Hand Sewer Shoes Name Role Phone Jewels Sorto APRN Primary Care Provider [phone] Encounter Details Date Type Department Care Team (Latest Contact Info) Description 02/16/2015 8:31 AM EDT - 02/16/2015 9:09 AM EDT Hospital [place] [phone] Breast cancer, female, left Social History Tobacco [...] as of this encounter Progress Notes * Sánchez Sutherland MD - 02/15/2015 5:16 PM EDT Pre-procedure note for needle breast biopsies performed in radiology. Procedure date: Tomorrow Procedure type: left breast NLOC and sentinel node injection plus NLOC of left axillary lymph node Allergies: Review of patient's allergies indicates no known allergies. Medications: Current outpatient prescriptions: hydrochlorothiazide (HYDRODIURIL) 25 mg Tablet, , Disp: , Rfl: 0; ibuprofen (ADVIL;MOTRIN) 800 mg Tablet, 600 mg., Disp: , Rfl: 0; levothyroxine (SYNTHROID) 25 mcg Tablet, , Disp: , Rfl: 0; simvastatin (ZOCOR) 40 mg Tablet, , Disp: , Rfl: 0 Varenicline 0.5 mg (11)- 1 mg (42) Tablets, Dose Pack, Take 0.5 mg by mouth daily. Start chantix 7 days before your quit date Take one pill once daily for 3 days then 2 pills once daily for 3 days than 2 pills twice daily until quit, Disp: 53 tablet, Rfl: 1 Anticoagulation status: none stopped on: N/A Imaging reviewed and procedural plan approved by Dr. SÁNCHEZ SUTHERLAND MD documented in this encounter Plan of Treatment Upcoming Encounters Date Type Department Care Team (Late st Contact Info) Description 12/04/2024 11:00 AM EDT Office [place] [address] Roddy Olson MD [facility] [place] [address] documented as of this encounter Procedures Procedure Name Priority Date/Time Associated Diagnosis Comments MAMMO SENTINEL NODE INJECTION Routine 02/16/2015 10:00 AM EDT Breast cancer, female, left documented in this encounter Results * Mammo sentinel node [...] left documented in this encounter Care Teams Hand Sewer Shoes Relationship Specialty Start Date End Date Jewels Sorto APRN PCP - General 05/24/10 01/09/18 documented as of this encounter
--- OUTSIDE RECORDS SUMMARY | 2024-02-04 18:41 | XMS_ITS | Encounter Summary ---
[place] [address] Care Team Providers Care Grinder Hand Name Role Phone Jewels Sorto APRN Primary Care Provider [phone] Reason for Visit * Reason Comments Chemotherapy AC - Cycle 2 * Medication Prior Authorization - Closed Specialty Diagnoses / Procedures Referred By Contac t Referred To Contact Hematology and Oncology Diagnoses Breast cancer, left breast Procedures TC DOXORUBICIN HCL, 10MG, INJECTION (ADRIAMYCIN) TC CYCLOPHOSPHAMIDE, 100MG (CYTOXAN) Hector Carey MD [address] [place] [id number] [facility] Hem Onc [address] [place] [address] Referral ID Status Reason Start Date Expiration Date Visits Re quested Visits Authorized [id number] Closed 04/05/2015 04/04/2016 1 1 Encounter Details Date Type Department Care Team (Late st Contact Info) Description 04/15/2015 12:00 PM EDT Infusion Hematology Oncology at [address] [address] Breast cancer, left breast Social [...] as of this encounter Progress Notes * Shantelle Cruz RN - 04/15/2015 11:27 AM EDT INFUSION THERAPY ADMINISTRATION NOTES DIAGNOSIS: Breast CA CYCLE #: 2 REASON FOR VISIT: AC Chemotherapy SUBJECTIVE Ms. Lozada is here for her AC # 2. She is doing well today. Losing her hair. Otherwise offers no complaints. OBJECTIVE LAB DATA: 04/12 - wbc 8.55, hgb 12.6, plts 196k, anc 4.87 IV ACCESS: Mediport Right Chest Pre administration: Chemotherapy orders independently verified for drug name, route, and dosage per patient's height, weight and BSA by Prabhu Cruz RN and Brad Wang [facility]. REACTIONS (DESCRIPTION, TIME, INTERVENTION AND EFFECTIVENESS) none ASSESSMENT Ms. Lozada was awake, alert and she tolerated treatment well. PLAN Return to clinic in 2 weeks for consideration of cycle 3 AC. She was reminded to call in the interim with any questions/concerns. Patient has questions regarding long-term disability and met with PAVITHRA Henderson for information and to discuss options. documented in this encounter Plan of Treatment Upcoming Encounters Date Type Department Care Team (Late st Contact Info) Description 12/04/2024 11:00 AM EDT Office [place] [address] Roddy Olson MD [facility] [place] [address] documented as of this encounter Visit Diagnoses [...] weight), Intravenous, ONCE, 1 dose, On Jayshree 04/15/15 at 1230, Administer over 30 Minutes New Bag 04/15/2015 12:45 PM EDT 1,242 mg 624.2 mL/hr dexamethasone (DECADRON) tablet 10 mg 10 mg, Oral, ONCE, 1 dose, On Jayshree 04/15/15 at 1130, Administer prior to chemotherapy, Routine Given 04/15/2015 11:36 AM EDT 10 mg DOXOrubicin (ADRIAMYCIN) chemo injection 124.2 mg 124.2 mg (60 mg/m2/dose ? 2.07 m2 Treatment Plan BSA from Recorded weight), Intravenous, ONCE, 1 dose, On Jayshree 04/15/15 at 1230, Administer each syringe over a minimum of 3 minutes per syringe. Given 04/15/2015 12:28 PM EDT 124.2 mg fosaprepitant (EMEND) 150 mg in sodium chloride 0.9% 155 mL infusion 150 mg, Intravenous, ONCE, 1 dose, On Jayshree 04/15/15 at 1130, Administer over 30 Minutes, Administer prior to chemotherapy New Bag 04/15/2015 11:44 AM EDT 150 mg 310 mL/hr heparin, porcine 100 unit/mL flush 500 Units 500 Units, Intravenous, ONCE PRN, Starting on Jayshree 04/15/15 at 1111, Until Jayshree 04/15/15 at 1537, Line Care, Refer to Intravenous (IV) Procedure: Accessing Implanted Vascular Access Devices (684) procedure and/or Intravenous (IV) Job Aid: Adult Flushing & Catheter Care (5692) job aid for additional information regarding guidelines and administration., Routine Given 04/15/2015 1:20 PM EDT 500 Units palonosetron (ALOXI) injection 0.25 mg 0.25 mg, Intravenous, ONCE, 1 dose, On Jayshree 04/15/15 at 1130, Administer over 30 seconds. Administer prior to chemotherapy, Routine Given 04/15/2015 11:38 AM EDT 0.25 mg pegfilgrastim (NEULASTA) injection 6 mg 6 mg, Subcutaneous, ONCE, 1 dose, On Jayshree 04/15/15 at 1130, Routine Given 04/15/2015 11:30 AM EDT 6 mg Right Arm sodium chloride 0.9 % flush 5-20 mL 5-20 mL, Intravenous, EVERY 1 MIN PRN, Starting on Jayshree 04/15/15 at 1111, Until Jayshree 04/15/15 at 1537, Line Care, Flush pertains to all indwelling lines. Flush per protocol found in the job aid using the link provided on this medication record. Refer to Intravenous (IV) Job Aid: Adult Flushing & Catheter Care (7519) job aid for additional information regarding guidelines and administration., Routine Given 04/15/2015 1:20 PM EDT 20 mLs documented in this encounter Care Teams Grinder Hand Relationship Specialty Start Date End Date Jewels Sorto APRN PCP - General 05/24/10 01/09/18 documented as of this encounter
--- OUTSIDE RECORDS SUMMARY | 2024-02-04 18:41 | XMS_ITS | Encounter Summary ---
Author Organization [facility] [place] [address] Care Team Providers Care Nursing Home Administrator Name Role Phone Jewels Sorto BAUTISTA Primary Care Provider [phone] Encounter Details Date Type Department Care Team (Late st Contact Info) Description 02/12/2015 Orders [place] [phone] Shiloh Cruz MD [facility] [place] [place] [address] Breast cancer, left Social History Tobacco Use [...] AM EDT Office Visit [place] [phone] Roddy Olson MD [facility] [place] [address] documented as of this encounter Visit Diagnoses Diagnosis Breast cancer, left Malignant neoplasm of breast (female), unspecified site documented in this encounter Care Teams Nursing Home Administrator Relationship Specialty Start Date End Date Jewels Sorto APRN PCP - General 05/24/10 01/09/18 documented as of this encounter
--- OUTSIDE RECORDS SUMMARY | 2024-02-04 18:41 | XMS_ITS | Encounter Summary ---
Author Organization [facility] Address [facility] [place] [address] Care Team Providers Care Freight Car Cleaner Delta System Name Role Phone Jewels Sorto Shruthi BAUM Primary Care Provider [phone] Encounter Details Date Type Department Care Team (Late st Contact Info) Description 02/10/2015 Orders [place] [phone] Rigo Dalton MD [facility] DIAGNOSIC [place] [address] Other (abnormal) findings on radiological examination of [...] AM EDT Office Visit [place] [phone] Roddy Olson MD [facility] [place] [address] documented as of this encounter Results * Mammo Breast Ultrasound Limited (02/12/2015 10:23 AM EDT) Anatomical Region Laterality Modality Breast N/A Mammography 02/12/2015 10:2 3 AM EDT Impressions 02/12/2015 12:27 PM EDT Impression: The additional lesions detected at MRI are sonographically consistent with benign fibroadenomata and retrospectively visualized back to the mammogram from 2013 consistent with a [...] 11 mm, again retrospectively visualized andunchanged since 2012 (lesion 3) ULTRASOUND I personally performed directed ultrasound of the left axilla, directed ultrasound of the 2 nodules in the left breast as well as the nodule inthe right breast at the 2:00 radian. Left breast lesion #2: This is a well-circumscribed homogeneouslyhypoechoic wider than tall nodule at the 10:00 radian 6 cm from the nipple [id number] mm in maximal diameter consistent with a [...] 6: Known Biopsy-Proven Malignancy Rigo Dalton MD IM MAMMO ORDERABLES * Mammo call back diagnostic extra view unilateral (02/12/2015 9:37 AM EDT) Anatomical Region Laterality Modality Breast N/A Mammography 02/12/2015 9:37 AM EDT Impressions 02/12/2015 12:27 PM EDT Impression: The additional lesions detected at MRI are sonographically consistent with benign fibroadenomata and retrospectively visualized back to the mammogram from 2013 consistent with a [...] 11 mm, again retrospectively visualized andunchanged since 2012 (lesion 3) ULTRASOUND I personally performed directed ultrasound of the left axilla, directed ultrasound of the 2 nodules in the left breast as well as the nodule inthe right breast at the 2:00 radian. Left breast lesion #2: This is a well-circumscribed homogeneouslyhypoechoic wider than tall nodule at the 10:00 radian 6 cm from the nipple [id number] mm in maximal diameter consistent with a [...] and retrospectively visualized backto the mammogram from 2012 consistent with a benign process. This patient should undergo ultrasound-guided preoperative wirelocalization for the known malignancy left breast lesion #1 which is sonographicallyapparent in the left upper outer quadrant as well as preoperative wire localizationfor the morphologically abnormal left axillary lymph node. BI-RADS Category 6: Known Biopsy-Proven Malignancy Rigo Dalton MD IMG MAMMO ORDERABLES documented in this encounter Visit Diagnoses Diagnosis Other (abnormal) findings on radiological examination of breast Other (abnormal) findings on radiological examination of breast Other (abnormal) findings on radiological examination of breast documented in this encounter Care Teams Freight Car Cleaner Delta System Relationship Specialty Start Date End Date Jewels Sorto APRN PCP - General 05/24/10 01/09/18 documented as of this encounter
--- OUTSIDE RECORDS SUMMARY | 2024-02-04 18:41 | XMS_ITS | Encounter Summary ---
Author Organization [facility] Address [facility] [place] [address] Care Team Providers Care Director Imaging Name Role Phone WilliamsonJewels ca Shruthi BAUM Primary Care Provider [phone] Encounter Details Date Type Department Care Team (Latest Contact Info) Description 02/12/2015 9:09 AM EDT - 02/12/2015 11:59 PM EDT Hospital [place] [phone] CLINIC, Shiloh Walker MD [facility] [place] [address] Other (abnormal) findings on radiological examination of breast Discharge Disposition: Home Social History [...] AM EDT Office [place] [address] Roddy Olson MD [facility] [place] [address] documented as of this encounter Procedures Procedure Name Priority Date/Time Associated Diagnosis Comments MAMMO BREAST US LIMITED Routine 02/12/2015 10:23 AM EDT Other (abnormal) findings on radiological examination of breast documented in this encounter Results * Mammo Breast Ultrasound [...] 10:00 radian 6 cm from the nipple mm in maximal diameter consistent with a [...] documented in this encounter Care Teams Director Imaging Relationship Specialty Start Date End Date Jewels Sorto APRN PCP - General 05/24/10 01/09/18 documented as of this encounter
--- OUTSIDE RECORDS SUMMARY | 2024-02-04 18:41 | XMS_ITS | Encounter Summary ---
Author Organization [facility] [place] [address] Care Team Providers Care Reimbursement Counselor Name Role Phone Jewels Sorto APRN Primary Care Provider [phone] Encounter Details Date Type Department Care Team (Late st Contact Info) Description 02/03/2015 Orders Only Hematology [place] [address] Shiloh Cruz MD [facility] [place] [address] Breast cancer, female, left Social History Tobacco [...] AM EDT Office Visit [place] [phone] Roddy Olson MD [facility] [place] [address] documented as of this encounter Visit Diagnoses Diagnosis Breast cancer, female, left documented in this encounter Care Teams Reimbursement Counselor Relationship Specialty Start Date End Date Jewels Sorto APRN PCP - General 05/24/10 01/09/18 documented as of this encounter
--- OUTSIDE RECORDS SUMMARY | 2024-02-04 18:41 | XMS_ITS | Encounter Summary ---
Author Organization [facility] Address [facility] [place] [address] Care Team Providers Care Associate Software Engineer Name Role Phone EllisJewels ca Shruthi BAUM Primary Care Provider [phone] Encounter Details Date Type Department Care Team (Latest Contact Info) Description 02/16/2015 8:30 AM EDT - 02/16/2015 11:59 PM EDT Hospital Encounter [place] [phone] CLINIC, Sihloh Walker MD [facility] [place] [address] Breast cancer, female, left Discharge Disposition: Home [...] EDT Office Visit [place] [address] Roddy Olson MD [facility] [place] [address] documented as of this encounter Procedures Procedure Name Priority Date/Time Associated Diagnosis Comments MAMMO ULTRASOUND NEEDLE PLACEMENT MULTIPLE Routine 02/16/2015 9:57 AM EDT documented in this encounter Results * Mammo Ultrasound Needle Placement Multiple (02/16/2015 9:57 AM EDT) Anatomical Region Laterality Modality Breast N/A Mammography 02/16/2015 9:57 AM EDT Addenda Addendum by Salma Farooq [...] cancer, female, left documented in this encounter Administered Medications Inactive Administered Medications - up to 3 most recent administrations Medication Order MAR Action Action Date Dose Rate Site lidocaine (XYLOCAINE) 10 mg/mL (1 %) injection 10 mg 10 mg, Intradermal, ONCE, 1 dose, On Sun02/16/15 at 0900, Routine Given 02/16/2015 9:30 AM EDT 10 mg documented in this encounter Care Teams Associate Software Engineer Relationship Specialty Start Date End Date Jewels Sorto APRN PCP - General 05/24/10 01/09/18 documented as of this encounter
--- OUTSIDE RECORDS SUMMARY | 2024-02-04 18:42 | XMS_ITS | Encounter Summary ---
Author Organization [facility] Address [facility] [place] [address] Care Team Providers Care Case Coordinator Name Role Phone Jewels Sorto APRN Primary Care Provider [phone] Encounter Details Date Type Department Care Team (Late st Contact Info) Description 12/16/2014 [place] [address] Mckayla Hemphill MD [facility] [place] [address] Social History Tobacco Use Types Packs/Day Years Used Date Smoking Tobacco: Never Assessed Sex and Gender Information Value Date Recorded Sex Assigned at Not on file Gender Identity Not on file Sexual Orientation Not on file documented as of this encounter Plan of Treatment Upcoming Encounters Date Type Department Care Team (Late st Contact Info) Description 12/04/2024 11:00 AM EDT Office Visit [place] [address] Roddy Olson MD [facility] [place] [address] documented as of this encounter Visit Diagnoses Not on filedocumented in this encounter Care Teams Case Coordinator Relationship Specialty Start Date End Date Jewels Sorto APRN PCP - General 05/24/10 01/09/18 documented as of this encounter
--- OUTSIDE RECORDS SUMMARY | 2024-02-04 18:42 | XMS_ITS | Encounter Summary ---
Author Organization [facility] Address [address] [place] [address] Care Team Providers Care Oven Tender Name Role Phone Unavailable Primary Care Provider Unavailabl e Encounter Details Date Type Department Care Team (Late st Contact Info) Description 08/17/2006 Results Only [facility] conversion [address] [place] [address] Jewels Cramer, [facility] [address] [place], [place] [id number] Social History Tobacco Use Types Packs/Day Years Used Date Smoking Tobacco: Never Assessed Sex and Gender Information Value Date Recorded Sex Assigned at Not on file Gender Identity Not on file Sexual Orientation Not on file documented as of this encounter Plan of Treatment Not on file documented as of this encounter Procedures Procedure Name Priority Date/Time Associated Diagnosis Comments CYTOPATHOLOGY Routine 08/17/2006 0:00 EST documented in this encounter Results * CYTOPATHOLOGY (08/17/2006 0:00 EST) Pathology Report: CYTOPATHOLOGY REPORT Reports generated via electronic interface contain original data; however they are lacking the format of the original report. Caution should be taken when reading/interpreti ng unformatted reports. Name: ? KELLEY HOOKS ? Accession #: ? [id number] : ? 1955 (Age: 51) ??F ?Collect Date: ? 08/17/2006 Location: ? [facility] ? Receive Date: ? 08/20/2006 Provider: ?JEWELS CRAMER BOILERMAKER MECHANIC Copy to: ? Specimen/Source: ?ThinPrep Pap Test, Cervix/Endocervix, processed on [employer] ThinPrep Imaging System, with manual evaluation Last Menstrual Period: ? 10 yrs Previous Gynecologic Pathology: ? Adenocarcinoma: early of cervix 1995 Treatment History: ? Miscellaneous treatment: Conization of cervix for early adeno ca 1995 ? SPECIMEN ADEQUACY ? Satisfactory for Evaluation - transformation zone component present GENERAL CATEGORIZATION ? Negative for Intraepithelial Lesion or Malignancy INTERPRETATION ? Shift in loyd present suggestive of bacterial vaginosis. ? Document reviewed and electronically signed by: ? ELVIS Garcias(ASCP) ? Report Date: ??08/22/2006 12:01 End of Report INOCENCIO THOMPSON 08/17/2006 08/20/2006 Jewels Cramer NP PATHOLOGY ORDERABLES Performing Organization Address City/State/[facility] Co de Phone Number INOCENCIO THOMPSON [address] [place] [address] documented in this encounter Visit Diagnoses Not on filedocumented in this encounter
--- OUTSIDE RECORDS SUMMARY | 2024-02-04 18:42 | XMS_ITS | Encounter Summary ---
Author Organization [facility] Address [facility] [place] [address] Care Team Providers Care Shipping And Receiving Assistant Name Role Phone Jewels Sorto BAUTISTA Primary Care Provider [phone] Encounter Details Date Type Department Care Team (Late st Contact Info) Description 01/14/2015 Orders Only Hematology [place] [address] Shiloh Cruz MD [facility] [place] [address] Breast cancer, female, left Social History Tobacco [...] EDT Office Visit [place] [phone] Roddy Olson MD [facility] [place] [address] documented as of this encounter Results * Comprehensive metabolic panel (non-fasting) (01/28/2015 12:40 PM EDT) [facility] Glucose 107 65 - 199 mg/dL CERNER MILLENNIUM Comment:Diabetes: >=200 mg/d L plus symptoms Blood Urea Nitrogen 11 8 - 18 mg/dL CERNER MILLENNIUM Creatinine 0.76 0.70 - 1.20 mg/dL CERNER MILLENNIUM Comment: Please note that the pediatric reference intervals supplied above were not validated at [facility]. Results from pediatric patients should be interpreted in conjunction to the patient's age, height and muscle mass. Sodium 141 135 - 145 mmol/L CERNER MILLENNIUM Potassium 3.7 3.5 - 5.0 mmol/L CERNER MILLENNIUM Comment: Please note: ??Patients with WBC >100,000 may have falsely elevated Potassium levels. ??For accurate Potassium quantification in these patients send serum separator tube (gold top) for subsequent determinations. ??Contact the Clinical Chemistry Laboratory if there are any questions. Chloride 103 98 - 107 mmol/L CERNER MILLENNIUM Carbon Dioxide 24 22 - 31 mmol/L CERNER MILLENNIUM Anion Gap 14 5 - 15 mmol/L CERNER MILLENNIUM Calcium 9.4 8.5 - 10.5 mg/dL CERNER MILLENNIUM Protein, Total 6.8 6.1 - 8.0 gm/dL CERNER MILLENNIUM Albumin 4.3 3.2 - 5.2 gm/dL CERNER MILLENNIUM Aspartate Aminotransferase 16 0 - 30 unit/L CERNER MILLENNIUM Alanine Aminotransferase 18 0 - 30 unit/L CERNER MILLENNIUM Alkaline Phosphatase 73 40 - 104 unit/L CERNER MILLENNIUM Bilirubin, Total 0.3 0.2 - 1.3 mg/dL CERNER MILLENNIUM Bilirubin, Direct 0.1 0.0 - 0.3 mg/dL CERNER MILLENNIUM Est Glomerular Filtration Rate >60 >=60 CERNER MILLENNIUM Comment: This estimated GFR (eGFR) value was calculated using the MDRD equation which has been validated on patients between the ages of 18 and 70. The MDRD should not be used to assess kidney function in patients < 18 years of age or in patients with extremes of body mass, or in patients with acute kidney failure. This value should be multiplied by 1.2 for patients. For further information please copy and paste the following links into your internet browser. http://Good Thing/DHnkdep [email or web address]://Good Thing/DHMCnkf Blood specimen (specimen) 01/28/2015 12:40 PM EDT 01/28/2015 12:50 PM EDT Narrative Resulting Agency Comment Spec In Lab Shiloh Cruz MD CHEMISTRY ORDERABLE S REJI SALAZAR * MRI breast bilateral with/WO contrast (01/23/2015 12:03 PM EDT) Anatomical Region Laterality Modality Breast Bilateral Magnetic Resonan ce 01/23/2015 12:0 3 PM EDT Narrative 02/10/2015 8:18 AM EDT Due to technical issues, this examination was repeated in its entirety. Please see breast MRI examination with gadolinium, accession [id number] for report and complete characterization. Procedure Note Rigo Dalton MD - 02/10/2015 Due to technical issues, this examination was repeated in its entirety.Please see breast MRI examination with gadolinium, accession [id number] for reportand complete characterization. Shiloh Cruz MD IMG MRI ORDERABLES documented in this encounter Visit Diagnoses Diagnosis Breast cancer, female, left Breast cancer, female, left documented in this encounter Care Teams Shipping And Receiving Assistant Relationship Specialty Start Date End Date Jewels Sorto APRN PCP - General 05/24/10 01/09/18 documented as of this encounter
--- OUTSIDE RECORDS SUMMARY | 2024-02-04 18:42 | XMS_ITS | Referral Summary ---
Author Organization [facility] Address [address] [place] [address] Care Team Providers Care Dog Catcher Name Role Phone Unknown, Provider Primary Care Provider [phone] Social History Tobacco Use Types Packs/Day Years Used Date Smoking Tobacco: Never Assessed Sex and Gender Information Value Date Recorded Sex Assigned at Not on file Gender Identity Not on file Sexual Orientation Not on file Plan of Treatment Not on file Care Teams Dog Catcher Relationship Specialty Start Date End Date Unknown, Provider, PCP - General 05/11/15
--- OUTSIDE RECORDS SUMMARY | 2024-02-04 18:42 | XMS_ITS | Encounter Summary ---
Author Organization [facility] Address [address] [place] [address] Care Team Providers Care Sugar Refiner Name Role Phone Unavailable Primary Care Provider Unavailabl e Encounter Details Date Type Department Care Team (Late st Contact Info) Description 12/12/2001 Results Only [facility] conversion [address] [place] [address] Emigdio Loyola, DO [address] [facility] [address] [place], [place] [phone] Social History Tobacco Use Types Packs/Day Years Used Date Smoking Tobacco: Never Assessed Sex and Gender Information Value Date Recorded Sex Assigned at Not on file Gender Identity Not on file Sexual Orientation Not on file documented as of this encounter Plan of Treatment Not on file documented as of this encounter Procedures Procedure Name Priority Date/Time Associated Diagnosis Comments SURGICAL PATHOLOGY Routine 12/12/2001 0:00 EDT documented in this encounter Results * SURGICAL PATHOLOGY (12/12/2001 0:00 EDT) Pathology Report: SURGICAL PATHOLOGY REPORT Reports generated via electronic interface contain original data; however they are lacking the format of the original report. Caution should be taken when reading/interpreting unformatted reports. Name: ? KELLEY HOOKS ? Accession #: ? [id number] ? : ? 1955 (Age: 46) ??F ? Collect Date: ? 12/12/2001 ? Location: ? [facility] ? Receive Date: ? 12/13/2001 ? Provider: EMIGDIO LOYOLA DO Copy to: ROSEANNE SANCHEZ MD ? Final Pathologic Diagnosis: ? Skin of lower extremity, right, excision: 1. ?Benign fibrous histiocytoma (dermatofibroma). ??See microscopic and comment. ? - Lesion extends to margins of excision specimen. Comment: ? Given the cellularity of the lesion and extension into the subcutis, additional sections were prepared by the immunohistochemical technique. ??The intense immunoreactivity for Factor XIII A supports the diagnosis of benign fibrous histiocytoma (dermatofibroma). ??(Dr. Mcpherson)/[facility] Microscopic Description: ? Sections consist of an excision of skin that includes a portion of subcutis. ??The epidermis shows a prominent degree of irregular hyperplasia that, in some areas, is accompanied by hyperpigmentation of the basal keratinocytes. Within the dermis, and extending into the superficial subcutis, there is a spindle cell proliferation. ??The proliferation is of variable cellularity and consists of spindle cells arranged in interlacing fascicles. ??The spindle cells show a mild degree of nuclear size and shape variation. ??Polygonal histiocytes, including multinucleate forms, are also present. ??The proliferation is associated with thickened collagen bundles that are particularly evident at the periphery of the lesion. ??The proliferation extends into the subcutis in a wedge-shaped fashion, although, focally, the spindle cells surround individual adipocytes. ??Additional sections were prepared by the immunohistochemical technique and show that the majority of the spindle cells are intensely immunoreactive for factor XIII A (polyclonal, Biogenex). ??Sections prepared for CD34 (MY 10, Cristi-Nicole) show immunoreactivity of the vascular structures; however, the spindle cells are generally not reactive. ??(Dr. Mcpherson)/[facility] Document reviewed and electronically signed by: Cary Mcpherson MD Report ??Date: 12/17/2001 16:43 By the signature above, the attending physician certifies that he/she has personally conducted a gross and/or microscopic examination of the described specimens and rendered or confirmed the above diagnosis. Specimen(s) Received: ? Right lower extremity skin lesion Clinical History: ? Skin lesion; clinical diagnosis code: 216.7 Gross Description: ? Received in formalin labelled Chowdary and skin lesion is an unoriented skin ellipse which measures 1.9 x 0.9 cm and is excised to a depth of 0.8 cm. ??The cutaneous surface is topete-pink and contains a centrally located indurated plaque which measures 0.5 x 0.1 cm. ??The specimen is inked, serially sectioned, and entirely submitted as follows: ??(A1) distal tips reverse en face, (A2) to (A3) four central sections. ??(Milton Michelle)/dtl End of Report [facility] 12/12/2001 12/13/2001 15: 07 EDT Emigdio Loyola DO PATHOLOGY ORDER [facility] [address] [place] [address] documented in this encounter Visit Diagnoses Not on filedocumented in this encounter
--- OUTSIDE RECORDS SUMMARY | 2024-02-04 18:42 | XMS_ITS | Encounter Summary ---
Author Organization [facility] Address [address] [place] [address] Care Team Providers Care Alcohol Still Operator Name Role Phone Unavailable Primary Care Provider Unavailabl e Encounter Details Date Type Department Care Team (Late st Contact Info) Description 05/30/2002 Results Only [facility] conversion [address] [place] [address] Jewels Cramer, STUDENT CAREER DEVELOPMENT SPECIALIST [facility] [address] [place], [place] [phone] Social History Tobacco Use Types Packs/Day Years Used Date Smoking Tobacco: Never Assessed Sex and Gender Information Value Date Recorded Sex Assigned at Not on file Gender Identity Not on file Sexual Orientation Not on file documented as of this encounter Plan of Treatment Not on file documented as of this encounter Procedures Procedure Name Priority Date/Time Associated Diagnosis Comments CYTOPATHOLOGY Routine 05/30/2002 0:00 EST documented in this encounter Results * CYTOPATHOLOGY (05/30/2002 0:00 EST) Pathology Report: CYTOPATHOLOGY REPORT Reports generated via electronic interface contain original data; however they are lacking the format of the original report. Caution should be taken when reading/interpreti ng unformatted reports. Name: ? KELLEY HOOKS ? Accession #: ? [id number] : ? 1955 (Age: 46) ??F ?Collect Date: ? 05/30/2002 Location: ? [facility] ? Receive Date: ? 06/03/2002 Provider: ?JEWELS CRAMER STUDENT CAREER DEVELOPMENT SPECIALIST Copy to: ? Specimen/Source: ?ThinPrep Pap Test, Cervix/Endocervix Last Menstrual Period: ? 2 years Previous Gynecologic Pathology: ? Adenocarcinoma: endo cx 1996 Treatment History: ? Cone biopsy: treatment ? SPECIMEN ADEQUACY ? Satisfactory for Evaluation - transformation zone component present GENERAL CATEGORIZATION ? Negative for Intraepithelial Lesion or Malignancy ? Document reviewed and electronically signed by: ? Jayshree Dial, CT(ASCP) ? Report Date: ??06/05/2002 13:53 End of Report [facility] 05/30/2002 06/03/2002 Jewels Cramer NP PATHOLOGY ORDERABLES [facility] [address] [place] [address] documented in this encounter Visit Diagnoses Not on filedocumented in this encounter
--- OUTSIDE RECORDS SUMMARY | 2024-02-04 18:42 | XMS_ITS | Encounter Summary ---
Author Organization [facility] Address [address] [place] [address] Care Team Providers Care Extruding Machine Operator Name Role Phone Unavailable Primary Care Provider Unavailabl e Encounter Details Date Type Department Care Team (Late st Contact Info) Description 02/24/2004 Results Only [facility] conversion [address] [place] [address] Jewels Cramer, [facility] [address] [place], [place] [phone] Social History Tobacco Use Types Packs/Day Years Used Date Smoking Tobacco: Never Assessed Sex and Gender Information Value Date Recorded Sex Assigned at Not on file Gender Identity Not on file Sexual Orientation Not on file documented as of this encounter Plan of Treatment Not on file documented as of this encounter Procedures Procedure Name Priority Date/Time Associated Diagnosis Comments CYTOPATHOLOGY Routine 02/24/2004 0:00 EDT documented in this encounter Results * CYTOPATHOLOGY (02/24/2004 0:00 EDT) Pathology Report: CYTOPATHOLOGY REPORT Reports generated via electronic interface contain original data; however they are lacking the format of the original report. Caution should be taken when reading/interpreti ng unformatted reports. Name: ? KELLEY JENSEN ? Accession #: ? [id number] : ? 1955 (Age: 48) ??F ?Collect Date: ? 02/24/2004 Location: ? [facility] ? Receive Date: ? 02/29/2004 Provider: ?JEWELS CRAMER NP Copy to: ? Specimen/Source: ?ThinPrep Pap Test, Cervix/Endocervix Last Menstrual Period: ? 3 years Previous Gynecologic Pathology: ? Adenocarcinoma: of cervix Treatment History: ? Cryotherapy Cone biopsy ? SPECIMEN ADEQUACY ? Satisfactory for Evaluation - transformation zone component present GENERAL CATEGORIZATION ? Negative for Intraepithelial Lesion or Malignancy INTERPRETATION ? Shift in loyd present suggestive of bacterial vaginosis. ? Document reviewed and electronically signed by: ? Junito Goss, LEONARD(ASCP) ? Report Date: ??03/02/2004 08:14 End of Report [facility] 02/24/2004 02/29/2004 Jewels Cramer NP PATHOLOGY ORDERABLES [facility] [address] [place] [address] documented in this encounter Visit Diagnoses Not on filedocumented in this encounter
--- OUTSIDE RECORDS SUMMARY | 2024-02-04 18:42 | XMS_ITS | Encounter Summary ---
Author Organization [facility] [place] [address] Care Team Providers Care Class A Regional Drivers Name Role Phone Jewels Sorto APRN Primary Care Provider [phone] Encounter Details Date Type Department Care Team (Late st Contact Info) Description 01/14/2015 Telephone [place]ology [place] [address] Mariajose Javed RN Social History Tobacco Use Types Packs/Day Years Used Date Smoking Tobacco: Never Assessed Sex and Gender Information Value Date Recorded Sex Assigned at Not on file Gender Identity Not on file Sexual Orientation Not on file documented as of this encounter Miscellaneous Notes * Telephone Encounter - Mariajose Javed RN - 01/14/2015 11:30 AM EDT Comprehensive Breast Program Note Contacted patient after Dr. 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 Kelley Jensen is a 59 y.o. female with newly diagnosed left breast IDC (left breast U/S guided biopsy 01/12/2015 at [facility] Kelley sounds positive, though concerned, and has support from family and friends. Her and daughter (possibly) will accompany her to appointments. She has 2 daughters and 5 grandchildren. She appears to be coping well but is anxious to meet with a breast surgeon to determine a treatmentplan. 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 She states she had smoked since age 15 and continues to do so although she was able to quit for a couple of years. She knows she needs to quit. Her PCP has been encouraging her to do so. She is aware we have support to help her with smoking cessation. Appointments for breast MRI and surgical consult with a breast surgeon will be scheduled. She was told she would receive information about her diagnosis and it's treatment. Addressed her questions and encouraged her to contact me with any additional questions or concerns. She has our contact information. Laterality:Left Is this a recurrence:No Family history of breast cancer:No Family history of ovarian cancer: No Personal history or breast cancer:No Method of detection: Mammogram Method of diagnosis: Ultrasound Core Biopsy documented in this encounter Plan of Treatment Upcoming Encounters Date Type Department Care Team (Late st Contact Info) Description 12/04/2024 11:00 AM EDT Office [place] [address] Roddy Olson MD [facility] [place] [address] documented as of this encounter Visit Diagnoses Not on filedocumented in this encounter Care Teams Class A Regional Drivers Relationship Specialty Start Date End Date Jewels Sorto APRN PCP - General 05/24/10 01/09/18 documented as of this encounter
--- OUTSIDE RECORDS SUMMARY | 2024-02-04 18:42 | XMS_ITS | Encounter Summary ---
Author Organization [facility] [place] [address] Care Team Providers Care Admitted Attorneys Name Role Phone NoreenJewels Shruthi BAUM Primary Care Provider [phone] Encounter Details Date Type Department Care Team (Latest Contact Info) Description 01/12/2015 10:37 AM EDT - 01/12/2015 11:59 PM EDT Hospital [place] [address] Other (abnormal) findings on radiological examination of [...] Refills Start Date End Date ibuprofen (ADVIL;MOTRIN) 800 mg Tablet 600 mg. 0 08/27/2014 11/17/2015 documented as of this encounter Plan of Treatment Upcoming Encounters Date Type Department Care Team (Late st Contact Info) Description 12/04/2024 11:00 AM EDT Office [place] [address] Roddy Olson MD [facility] [place] [address] documented as of this encounter Procedures Procedure Name Priority Date/Time Associated Diagnosis Comments MAMMO DIRECT DIGITAL UNILATERAL Routine 01/12/2015 12:38 PM EDT Other (abnormal) findings on radiological examination of breast documented in this encounter Results * Mammo direct digital unilateral (01/12/2015 12:38 PM EDT) Anatomical Region Laterality Modality Breast N/A Mammography 01/12/2015 12:3 8 PM EDT Impressions 01/17/2015 2:59 PM EDT IMPRESSION: Concordant result ?? RECOMMENDATION: Breast MRI. Definitive treatment. Results and recommendations discussed with the patient by phone and conveyed to CBP via email REVIEW PATH CONFERENCE?: No Narrative 01/17/2015 2:59 PM EDT ULTRASOUND GUIDED BIOPSY OF THE LEFT BREAST CLINICAL HISTORY: Abnormal Ultrasound. ? LEFT BREAST LESION #1 Finding: Mass SIZE: 8 mm LOCATION: Upper Outer Quadrant 1 OClock 6 cm from the nipple PROCEDURAL DETAILS: Informed consent was obtained. Sterile technique was deployed. Approximately 4 cc 1% lidocaine (superficial) and approximately 6 cc 1% lidocaine with epinephrine (deep) used for local anesthesia. A small skin incision was made and a biopsy was performed under ultrasound guidance. 4 core biopsy specimens were obtained using a Achieve 18g device. 2 core biopsy specimens were obtained using a Achieve 14g device. Biopsy specimens were not radiographed. Satisfactory sampling was obtained. ? A ultraclip ribbon 17G marker clip was placed. Cranio-caudal and lateral digital mammography performed to determine biopsy marker placement, which was shown to be ? cm from the biopsy site in N/A direction. COMPLICATIONS: None. ? PROCEDURAL ATTESTATION: Resident: ? I was present with the resident for the murillo component(s) of the procedure and otherwise remained immediately available for the duration of the procedure. I attest to having personally viewed the images/test and approve the above interpretation. IMAGING DIFFERENTIAL DIAGNOSIS: IDC, sclerosing lesion, papilloma PATHOLOGIC DIAGNOSIS: IDC Procedure Note Salma Farooq MD - 01/17/2015 ULTRASOUND GUIDED BIOPSY OF THE LEFT BREAST CLINICAL HISTORY: Abnormal Ultrasound. LEFT BREAST LESION #1 Finding: Mass SIZE: 8 mm LOCATION: Upper Outer Quadrant 1 OClock 6 cm from the nipple PROCEDURAL DETAILS: Informed consent was obtained. Sterile technique was deployed.Approximately 4 cc 1% lidocaine (superficial) and approximately 6 cc 1% lidocaine with epinephrine (deep) used for local anesthesia. A small skin incision wasmade and a biopsy was performed under ultrasound guidance. 4 core biopsy specimens were obtained using a Achieve 18g device. 2 core biopsy specimens were obtained using a Achieve 14g device. Biopsy specimens were not radiographed. Satisfactory sampling was obtained. A ultraclip ribbon 17G marker clip was placed. Cranio-caudal and lateraldigital mammography performed to determine biopsy marker placement, which wasshown to be cm from the biopsy site in N/A direction. COMPLICATIONS: None. PROCEDURAL ATTESTATION: Resident: I was present with the resident for the murillo component(s) of the procedureand otherwise remained immediately available for the duration of theprocedure. I attest to having personally viewed the images/test and approve the above interpretation. IMAGING DIFFERENTIAL DIAGNOSIS: IDC, sclerosing lesion, papilloma PATHOLOGIC DIAGNOSIS: IDC IMPRESSION IMPRESSION: Concordant result RECOMMENDATION: Breast MRI. Definitive treatment. Results and recommendations discussed with the patient by phone andconveyed to CBP via email REVIEW PATH CONFERENCE?: No Fior García MD IMG MAMMO ORDERABL ES documented in this encounter Visit Diagnoses Diagnosis Other (abnormal) findings on radiological examination of breast documented in this encounter Care Teams Admitted Attorneys Relationship Specialty Start Date End Date Jewels Sorto APRN PCP - General 05/24/10 01/09/18 documented as of this encounter
--- OUTSIDE RECORDS SUMMARY | 2024-02-04 18:42 | XMS_ITS | Encounter Summary ---
Author Organization [facility] Address [address] [place] [address] Care Team Providers Care Hoop Punch And Coiler Operator Name Role Phone Unavailable Primary Care Provider Unavailabl e Encounter Details Date Type Department Care Team (Late st Contact Info) Description 07/24/2011 Results Only [facility] ([facility] [address] [place], [place] [phone] Jewels Cramer NP [facility] [address] [place], [place] [phone] Social History Tobacco Use Types Packs/Day Years Used Date Smoking Tobacco: Never Assessed Sex and Gender Information Value Date Recorded Sex Assigned at Not on file Gender Identity Not on file Sexual Orientation Not on file documented as of this encounter Plan of Treatment Not on file documented as of this encounter Procedures Procedure Name Priority Date/Time Associated Diagnosis Comments PAP TEST- RESULT ONLY Routine 07/24/2011 0:00 EST documented in this encounter Results * PAP TEST- RESULT ONLY (07/24/2011 0:00 EST) Pathology Report: CYTOPATHOLOGY REPORT Reports generated via electronic interface contain original data; however they are lacking the format of the original report. Caution should be taken when reading/interpreti ng unformatted reports. Name: ? KELLEY JENSEN ? Accession #: ? [id number] : ? 1955 (Age: 56) ??F ?Collect Date: ? 07/24/2011 Location: ? [facility] ? Receive Date: ? 07/25/2011 Provider: ?JEWELS CRAMER NETWORK SECURITY ANALYST Copy to: ? Specimen/Source: ?Pap Test, Cervix/Endocervix, ThinPrep Imaging System with manual evaluation Last Menstrual Period: ? Previous Gynecologic Pathology: ? DANNY: Cervical dysplasia remote past ? SPECIMEN ADEQUACY ? Satisfactory for Evaluation - transformation zone component absent GENERAL CATEGORIZATION ? Negative for Intraepithelial Lesion or Malignancy INTERPRETATION ? Shift in loyd present suggestive of bacterial vaginosis. ? Document reviewed and electronically signed by: ? Junito Goss, LEONARD(ASCP) ? Report Date: ??07/27/2011 09:26 End of Report [facility] 07/24/2011 07/25/2011 Jewels Cramer NP PATHOLOGY ORDERABLES [facility] [address] [place] [address] documented in this encounter Visit Diagnoses Not on filedocumented in this encounter
--- OUTSIDE RECORDS SUMMARY | 2024-02-04 18:42 | XMS_ITS | Encounter Summary ---
Author Organization [facility] Address [address] [place] [address] Care Team Providers Care Dice Spotter Name Role Phone Unknown, Provider Primary Care Provider [phone] Encounter Details Date Type Department Care Team (Late st Contact Info) Description 08/30/2015 Results Only [facility] [phone] Jewels Cramer, APARTMENT LEASING CONSULTANT [facility] [address] [place], [place] [phone] Social History Tobacco Use Types Packs/Day Years [...] Diagnosis Comments PAP TEST- RESULT ONLY Routine 08/30/2015 0:00 EST documented in this encounter Results * PAP TEST- RESULT ONLY (08/30/2015 0:00 EST) Pathology Report: CYTOPATHOLOGY REPORT Reports generated via electronic interface contain original data; however they are lacking the format of the original report. Caution should be taken when reading/interpreti ng unformatted reports. Name: ? KELLEY HOOKS ? Accession #: ? [id number] : ? 1955 (Age: 60) ??F ?Collect Date: ? 08/30/2015 Location: ? [facility] ? Receive Date: ? 09/02/2015 Provider: ?JEWELS CRAMER APARTMENT LEASING CONSULTANT Copy to: ? Specimen/Source: ?Pap Test, Cervix/Endocervix, ThinPrep Imaging System with manual evaluation Last Menstrual Period: ? Previous Gynecologic Pathology: ? Adenocarcinoma: H/O in Cervix in past, with Dysplasia ? SPECIMEN ADEQUACY ? Satisfactory for Evaluation - transformation zone component present GENERAL CATEGORIZATION ? Negative for Intraepithelial Lesion or Malignancy ? Document reviewed and electronically signed by: ? Marlene Ibrahim, CT(ASCP)(IAC) ? Report Date: ??09/07/2015 14:45 End of Report [facility] 08/30/2015 09/02/2015 Jewels Cramer NP PATHOLOGY ORDERABLES [facility] [address] [place] [address] documented in this encounter Visit Diagnoses Not on filedocumented in this encounter Care Teams Dice Spotter Relationship Specialty Start Date End Date Unknown, Provider, PCP - General 05/11/15 documented as of this encounter
--- OUTSIDE RECORDS SUMMARY | 2024-02-04 18:42 | XMS_ITS | Encounter Summary ---
Author Organization [facility] [address] [place] [address] Care Team Providers Care Manager Medicare Name Role Phone [place] Shruthi BAUM Primary Care Provider [phone] Encounter Details Date Type Department Care Team (Late st Contact Info) Description 12/16/2014 External Results XRay at [address] [place] [address] Provider, Scanning Social History Tobacco Use Types Packs/Day Years [...] AM EDT Office Visit Thoracic Surgery at [facility] [place] [address] Roddy Olson MD [facility] THORACIC [place] [address] documented as of this encounter Procedures Procedure Name Priority Date/Time Associated Diagnosis Comments MAMMOGRAM SCAN Routine 12/16/2014 MAMMOGRAM SCAN Routine 12/20/2012 documented in this encounter Results * Scan Doc: Mammogram (12/16/2014) Anatomical Region Laterality Modality Other Scanning Provider MEDIA MGR SCAN EXT O RDR/RSLT * Scan Doc: Mammogram (12/20/2012) Anatomical Region Laterality Modality Other Scanning Provider MEDIA MGR SCAN EXT O RDR/RSLT documented in this encounter Visit Diagnoses Not on filedocumented in this encounter Care Teams Manager Medicare Relationship Specialty Start Date End Date Jewels Sorto APRN PCP - General 05/24/10 01/09/18 documented as of this encounter
--- OUTSIDE RECORDS SUMMARY | 2024-02-04 18:42 | XMS_ITS | Encounter Summary ---
Author Organization [facility] Address [address] [place] [address] Care Team Providers Care Counter Intelligence Name Role Phone Unavailable Primary Care Provider Unavailabl e Encounter Details Date Type Department Care Team (Late st Contact Info) Description 06/12/[address] [facility] Laboratory Services - [facility] ([facility]) [address] [place], [place] [phone] Jewels Cramer NP [facility] [address] [place], [place] [phone] Social History Tobacco Use Types Packs/Day Years [...] Diagnosis Comments PAP TEST- RESULT ONLY Routine 06/12/2013 0:00 EST documented in this encounter Results * PAP TEST- RESULT ONLY (06/12/2013 0:00 EST) Pathology Report: CYTOPATHOLOGY REPORT Reports generated via electronic interface contain original data; however they are lacking the format of the original report. Caution should be taken when reading/interpreti ng unformatted reports. Name: ? KELLEY HOOKS ? Accession #: ? [id number] : ? 1955 (Age: 57) ??F ?Collect Date: ? 06/12/2013 Location: ? [facility] ? Receive Date: ? 06/13/2013 Provider: ?JEWELS CRAMER HAND ROLLER Copy to: ? Specimen/Source: ?Pap Test, Cervix/Endocervix, ThinPrep Imaging System with manual evaluation Last Menstrual Period: ? 1990s Previous Gynecologic Pathology: ? DANNY: H/O Treatment History: ? LEEP: 1990s ? SPECIMEN ADEQUACY ? Satisfactory for Evaluation - transformation zone component present GENERAL CATEGORIZATION ? Negative for Intraepithelial Lesion or Malignancy INTERPRETATION ? Reactive cellular changes associated with inflammation present (includes repair). ? Document reviewed and electronically signed by: ? KRISTINA BLUM MD ? Report Date: ??06/24/2013 13:24 End of Report [facility] 06/12/2013 06/13/2013 Jewels Cramer NP PATHOLOGY ORDERABLES [facility] [address] [place] [address] documented in this encounter Visit Diagnoses Not on filedocumented in this encounter
--- OUTSIDE RECORDS SUMMARY | 2024-02-04 18:42 | XMS_ITS | Encounter Summary ---
Author Organization [facility] Address [address] [place] [address] Care Team Providers Care Trimmer Machine Name Role Phone Unavailable Primary Care Provider Unavailabl e Encounter Details Date Type Department Care Team (Late st Contact Info) Description 07/24/2014 Results Only [facility] Laboratory Services - [facility] ([facility]) [address], [place] [phone] Korey Cramer NP [facility] [address] [place], [place] [phone] Social History Tobacco Use Types Packs/Day Years [...] Diagnosis Comments PAP TEST- RESULT ONLY Routine 07/24/2014 0:00 EST documented in this encounter Results * PAP TEST- RESULT ONLY (07/24/2014 0:00 EST) Pathology Report: CYTOPATHOLOGY REPORT Reports generated via electronic interface contain original data; however they are lacking the format of the original report. Caution should be taken when reading/interpreti ng unformatted reports. Name: ? KELLEY HOOKS ? Accession #: ? [id number] : ? 1955 (Age: 59) ??F ?Collect Date: ? 07/24/2014 Location: ? [facility] ? Receive Date: ? 07/27/2014 Provider: ?KOREY CRAMER [place] MACHINE OPERATOR Copy to: ? Specimen/Source: ?Pap Test, Cervix/Endocervix, ThinPrep Imaging System with manual evaluation Last Menstrual Period: ? Years ago Previous Gynecologic Pathology: ? Carcinoma: h/o cervical ca ? SPECIMEN ADEQUACY ? Satisfactory for Evaluation - transformation zone component present GENERAL CATEGORIZATION ? Negative for Intraepithelial Lesion or Malignancy ? Document reviewed and electronically signed by: ? LEONARD Ospina(ASCP) ? Report Date: ??07/31/2014 09:44 End of Report [facility] 07/24/2014 07/27/2014 Korey Cramer NP PATHOLOGY ORDERABLES [facility] [address] [place] [address] documented in this encounter Visit Diagnoses Not on filedocumented in this encounter
--- OUTSIDE RECORDS SUMMARY | 2024-02-04 18:42 | XMS_ITS | Encounter Summary ---
Author Organization [facility] [place] [address] Care Team Providers Care Makeup Instructor Name Role Phone Korey Cramer APRN Primary Care Provider [phone] Encounter Details Date Type Department Care Team (Late st Contact Info) Description 01/11/2015 [place] [phone] Korey Cramer APRN [address] [place] [address] Social History Tobacco Use Types [...] AM EDT Office Visit [place] [phone] Roddy Olson MD [facility] [place] [address] documented as of this encounter Procedures Procedure Name Priority Date/Time Associated Diagnosis Comments REQUEST FOR 2ND READ MAMMO Routine 01/11/2015 8:50 AM EDT documented in this encounter Results * Request for 2nd read Mammo (01/11/2015 8:50 AM EDT) Anatomical Region Laterality Modality Other 01/11/2015 8:50 AM EDT Narrative 01/11/2015 10:29 AM EDT INTERPRETATION OF OUTSIDE MAMMOGRAMS AND/OR ULTRASOUND I have been asked to consult on this patient by Dr. KOREY CRAMER [facility] because he/she believes a review of this study may change or alter the care of this patient. STUDIES FROM: 12/16/2014, 12/04/2014, 12/20/2012 CLINICAL HISTORY: PLEASE REVIEW O/S BREAST IMAGING FROM [facility] DONE 12/16/14. INDETERMINATE LEFT BREAST NODULE . CAT #4. QUESTION MORE IMAGING? QUESTION BX? PLEASE CALL THE PATIENT [phone](h) [phone](w). PATIENT WANTS TREATMENT AT [facility].. ? VIEWS OBTAINED: I am reviewing a mammogram dated 12/04/2014 which identified an abnormality in the left upper outer quadrant. The study includes standard and 3-D tomosynthesis images and spot compression views of the left upper outer quadrant with static images from a breast ultrasound performed at [facility]. 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 ??Tomographic imaging was performed COMPARISONS: 12/20/2012 BREAST DENSITY: Heterogenously dense FINDINGS MAMMOGRAPHY: There is a 9 mm oval spiculated mass in the left upper outer quadrant approximately 2:00 radian 7 cm from the nipple. Additionally, there is a morphologically abnormal lymph node measuring 9 mm. No additional lesions are seen in the left or right breast. FINDINGS ULTRASOUND: Solid nodule left upper outer quadrant depicted as measuring 7 mm Assessment: Lesion 1: Suspicious solid nodule left upper outer quadrant 2:00 radian with probable axillary lymph node involvement. RECOMMENDATION: Recommend ultrasound-guided core biopsy with an automated device for lesion 1, the nodule in the left upper outer quadrant as described. BI-RADS Category 4: Suspicious Procedure Note Fior García MD - 01/11/2015 INTERPRETATION OF OUTSIDE MAMMOGRAMS AND/OR ULTRASOUND I have been asked to consult on this patient by Marcelino Cheung he/she believes a review of this study may change or alter the care ofthis patient. STUDIES FROM: 12/16/2014, 12/04/2014, 12/20/2012 CLINICAL HISTORY: PLEASE REVIEW O/S BREAST IMAGING FROM [facility] DONE 12/16/14. INDETERMINATE LEFT BREAST NODULE . CAT #4. QUESTION MOREIMAGING? QUESTION BX? PLEASE CALL THE PATIENT [phone](h) [phone](w).PATIENT WANTS TREATMENT AT [facility].. VIEWS OBTAINED: I am reviewing a mammogram dated 12/04/2014 which identified an abnormalityin the left upper outer quadrant. The study includes standard and 3-Dtomosynthesis images and spot compression views of the left upper outer quadrant withstatic images from a breast ultrasound performed at [facility]. 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 Tomographic imaging was performed COMPARISONS: 12/20/2012 BREAST DENSITY: Heterogenously dense FINDINGS MAMMOGRAPHY: There is a 9 mm oval spiculated mass in the left upper outer quadrant approximately 2:00 radian 7 cm from the nipple. Additionally, there is a morphologically abnormal lymph node measuring 9 mm. No additional lesions are seen in the left or right breast. FINDINGS ULTRASOUND: Solid nodule left upper outer quadrant depicted as measuring 7 mm Assessment: Lesion 1: Suspicious solid nodule left upper outer quadrant2:00 radian with probable axillary lymph node involvement. RECOMMENDATION: Recommend ultrasound-guided core biopsy with an automated device forlesion 1, the nodule in the left upper outer quadrant as described. BI-RADS Category 4: Suspicious Korey Cramer APRN IMG OUTSIDE INTERPRE TATION ORDERABLES documented in this encounter Visit Diagnoses Not on filedocumented in this encounter Care Teams Makeup Instructor Relationship Specialty Start Date End Date Korey Cramer APRN PCP - General 05/24/10 01/09/18 documented as of this encounter
--- OUTSIDE RECORDS SUMMARY | 2024-02-04 18:42 | XMS_ITS | Encounter Summary ---
Author Organization [facility] Address [address] [place] [address] Care Team Providers Care Soil Field Technician Name Role Phone Unavailable Primary Care Provider Unavailabl e Encounter Details Date Type Department Care Team (Late st Contact Info) Description 12/03/2009 Results Only [facility] Laboratory Services - [facility] ([facility] [address] [place], [place] [phone] Jewels Sorto NP [facility] [address] [place], [place] [phone] Social History Tobacco Use Types Packs/Day Years Used Date Smoking Tobacco: Never Assessed Sex and Gender Information Value Date Recorded Sex Assigned at Not on file Gender Identity Not on file Sexual Orientation Not on file documented as of this encounter Plan of Treatment Not on file documented as of this encounter Procedures Procedure Name Priority Date/Time Associated Diagnosis Comments CYTOPATHOLOGY Routine 12/03/2009 0:00 EDT documented in this encounter Results * CYTOPATHOLOGY (12/03/2009 0:00 EDT) Pathology Report: CYTOPATHOLOGY REPORT ? Reports generated via electronic interface contain original data; ? however they are lacking the format of the original report. ? Caution should be taken when reading/interpreti ng unformatted reports. ? Name: ? JESSEE, KELLEY ? Accession #: ? [id number] ? : ? 1955 (Age: 54) ??F ?Collect Date: ? 12/03/2009 ? Location: ? [facility] ? Receive Date: ? 12/06/2009 ? Provider: ?JEWELS SORTO RELATIONSHIP SPECIALIST ? Copy to: ? Specimen/Source: ?Pap Test, Cervix/Endocervix, ThinPrep Imaging System ? with manual evaluation ? Last Menstrual Period: ? Previous Gynecologic Pathology: ? DANNY: h/o ? Treatment History: ? LEEP: in 199's ? SPECIMEN ADEQUACY ? Satisfactory for Evaluation ? - transformation zone component present ? GENERAL CATEGORIZATION ? Negative for Intraepithelial Lesion or Malignancy ? INTERPRETATION ? Shift in loyd present suggestive of bacterial vaginosis. ? Document reviewed and electronically signed by: ? Jewels B. Willi, SCT(ASCP) ? Report Date: ??12/09/2009 13:41 ? End of Report ? [facility] 12/03/2009 12/06/2009 Jewels Sorto RELATIONSHIP SPECIALIST PATHOLOGY ORDERABLES [facility] [address] [place] [address] documented in this encounter Visit Diagnoses Not on filedocumented in this encounter
--- OUTSIDE RECORDS SUMMARY | 2024-02-04 18:42 | XMS_ITS | Encounter Summary ---
Author Organization [facility] Address [address] [place] [address] Care Team Providers Care Deli/Bakery Associate Name Role Phone Unavailable Primary Care Provider Unavailabl e Encounter Details Date Type Department Care Team (Late st Contact Info) Description 08/04/2005 Results Only [facility] conversion [address] [place] [address] Jewels Cramer, JAY JAY [facility] [address] [place], [place] [phone] Social History Tobacco Use Types Packs/Day Years Used Date Smoking Tobacco: Never Assessed Sex and Gender Information Value Date Recorded Sex Assigned at Not on file Gender Identity Not on file Sexual Orientation Not on file documented as of this encounter Plan of Treatment Not on file documented as of this encounter Procedures Procedure Name Priority Date/Time Associated Diagnosis Comments CYTOPATHOLOGY Routine 08/04/2005 0:00 EST documented in this encounter Results * CYTOPATHOLOGY (08/04/2005 0:00 EST) Pathology Report: CYTOPATHOLOGY REPORT Reports generated via electronic interface contain original data; however they are lacking the format of the original report. Caution should be taken when reading/interpreti ng unformatted reports. Name: ? KELLEY HOOKS ? Accession #: ? [id number] : ? 1955 (Age: 50) ??F ?Collect Date: ? 08/04/2005 Location: ? [facility] ? Receive Date: ? 08/08/2005 Provider: ?JEWELS CRAMER COMMUNICATIONS PLANNER Copy to: ? Specimen/Source: ?ThinPrep Pap Test, Cervix/Endocervix, processed on [email or web address] ThinPrep Imaging System, with manual evaluation Last Menstrual Period: ? 5 years ago Previous Gynecologic Pathology: ? Yes: Adenoma Treatment History: ? Cryotherapy Cone biopsy ? SPECIMEN ADEQUACY ? Satisfactory for Evaluation - transformation zone component present GENERAL CATEGORIZATION ? Negative for Intraepithelial Lesion or Malignancy INTERPRETATION ? Shift in loyd present suggestive of bacterial vaginosis. ? Document reviewed and electronically signed by: ? Jewels Márquez, SCT(ASCP) ? Report Date: ??08/09/2005 15:37 End of Report [facility] 08/04/2005 08/08/2005 Jewels Cramer NP PATHOLOGY ORDERABLES [facility] [address] [place] [address] documented in this encounter Visit Diagnoses Not on filedocumented in this encounter
--- OUTSIDE RECORDS SUMMARY | 2024-02-04 18:42 | XMS_ITS | Encounter Summary ---
Author Organization [facility] [place] [address] Care Team Providers Care Clinical Education Manager Name Role Phone Jewels Sorto BAUTISTA Primary Care Provider [phone] Encounter Details Date Type Department Care Team (Latest Contact Info) Description 01/11/2015 8:45 AM EDT - 01/11/2015 11:59 PM EDT Hospital Encounter XRay at [address] [place] [phone] CLINIC, Fior Villatoro MD [facility] [place] [address] Discharge Disposition: Home Social History Tobacco Use [...] AM EDT Office [place] [phone] Roddy Olson MD [facility] [place] [address] documented as of this encounter Visit Diagnoses Not on filedocumented in this encounter Care Teams Clinical Education Manager Relationship Specialty Start Date End Date Jewels Sorto APRN PCP - General 05/24/10 01/09/18 documented as of this encounter
--- OUTSIDE RECORDS SUMMARY | 2024-02-04 18:42 | XMS_ITS | Clinical Summary ---
Author Organization [facility] Address [address] [place] [address] Care Team Providers Care Internet Marketing Intern Name Role Phone Unknown, Provider Primary Care Provider [phone] Social History Tobacco Use Types Packs/Day Years Used Date Smoking Tobacco: Never Assessed Sex and Gender Information Value Date Recorded Sex Assigned at Not on file Gender Identity Not on file Sexual Orientation Not on file Plan of Treatment Health Maintenance Due Date Last Done Comments Hepatitis C Screen 1955 RSV Immunization ( o r 60+ Years) (1 - 1-dose 60+ series) 2015 Fall Risk Screening 2020 COVID-19 Vaccine (2022-24 season) 2023 Care Teams Internet Marketing Intern Relationship Specialty Start Date End Date Unknown, Provider, PCP - General 05/11/15
--- OUTSIDE RECORDS SUMMARY | 2024-02-04 18:42 | XMS_ITS | Encounter Summary ---
Author Organization [facility] [place] [address] Care Team Providers Care Senior Environmental Practice Leader Name Role Phone Lisa Zacarias BAUTISTA Primary Care Provider [phone] Encounter Details Date Type Department Care Team (Late st Contact Info) Description 08/09/2006 [place] [address] Xavi Richey MD GASTROENTEROLOGY Social History Tobacco Use Types Packs/Day Years [...] AM EDT Office [place] [address] Roddy Olson MD [facility] [place] [address] documented as of this encounter Procedures Procedure Name Priority Date/Time Associated Diagnosis Comments SURGICAL PATHOLOGY REPORT Routine 08/09/2006 6:36 PM EST documented in this encounter Results * Surgical Pathology Report (08/09/2006 6:36 PM EST) Surgical Pathology Report [id number] ? Location: The signing pathologist has (i) examined the relevant preparation(s) for the specimen(s) and (ii) rendered or confirmed the diagnosis(es). . ?Pathology Surgical Pathology Final Report Clinical Information Specimen Submitted: A - 3 polyps: ??rectum. Clinical History: Clinical Diagnosis: Constipation & change in bowel habits. Gross Description Labeled/Fixativ e: ? 3 polyps rectum, formalin. Qty/Size/Weight : ?Three pieces, ranging from 0.1 cm to 0.6 cm in ?greatest dimension. Tissue Description: ?? Soft, topete tissues. Sections/Proces sing: ??(T1) ??lmf/SNS Microscopic Description Slides reviewed, microscopic description not recorded. Diagnosis Endoscopic biopsy - ??Hyperplastic polyps. CR-PX 08/10/06 AAS 08/10/06 Verified by: ? Cameron Ybarra MD ?Pathologist ?(Electronic Signature) The attending pathologist whose signature appears on this report has reviewed all diagnostic slides and has edited the gross and/or microscopic portion of the report in rendering the final pathologic diagnosis. REJI HILLIUM 08/09/2006 6:36 PM EST Xavi Richey MD PATHOLOGY/CYTOLOGY ORDERABLES REJI SALAZAR documented in this encounter Visit Diagnoses Not on filedocumented in this encounter Care Teams Senior Environmental Practice Leader Relationship Specialty Start Date End Date Lisa Zacarias APRN PCP - General Family Medicine 01/08/19 documented as of this encounter
--- OUTSIDE RECORDS SUMMARY | 2024-02-04 18:42 | XMS_ITS | Encounter Summary ---
Author Organization [facility] Address [facility] [place] [address] Care Team Providers Care Quilt Maker Name Role Phone Jewels Sorto BAUTISTA Primary Care Provider [phone] Encounter Details Date Type Department Care Team (Late st Contact Info) Description 01/11/2015 [place] [phone] Fior García MD [facility] [place] [address] Other (abnormal) findings on radiological examination of [...] AM EDT Office [place] [phone] Roddy Olson MD [facility] [place] [address] documented as of this encounter Results * Mammo direct digital unilateral (01/12/2015 12:38 PM EDT) Anatomical Region Laterality Modality Breast N/A Mammography 01/12/2015 12:3 8 PM EDT Impressions 01/17/2015 2:59 PM EDT IMPRESSION: Concordant result ?? RECOMMENDATION: Breast MRI. Definitive treatment. Results and recommendations discussed with the patient by phone and conveyed to [facility] via email REVIEW PATH CONFERENCE?: No Narrative [...] Fior García MD IMG MAMMO ORDERABL ES * Mammo- US biopsy (01/12/2015 12:38 PM EDT) Anatomical Region Laterality [...] breast documented in this encounter Care Teams Quilt Maker Relationship Specialty Start Date End Date Jewels Sorto APRN [phone] (work) PCP - General 05/24/10 01/09/18 documented as of this encounter
--- OUTSIDE RECORDS SUMMARY | 2024-02-04 18:42 | XMS_ITS | Encounter Summary ---
Author Organization [facility] Address [address] [place] [address] Care Team Providers Care Truck Body Builder Name Role Phone Unavailable Primary Care Provider Unavailabl e Encounter Details Date Type Department Care Team (Late st Contact Info) Description 09/02/2007 Results Only [facility] conversion [address] [place] [address] Jewels Cramer, HIGH SCHOOL SCIENCE TUTOR [employer] [address] [place], [place] [phone] Social History Tobacco Use Types Packs/Day Years Used Date Smoking Tobacco: Never Assessed Sex and Gender Information Value Date Recorded Sex Assigned at Not on file Gender Identity Not on file Sexual Orientation Not on file documented as of this encounter Plan of Treatment Not on file documented as of this encounter Procedures Procedure Name Priority Date/Time Associated Diagnosis Comments CYTOPATHOLOGY Routine 09/02/2007 0:00 EST documented in this encounter Results * CYTOPATHOLOGY (09/02/2007 0:00 EST) Pathology Report: CYTOPATHOLOGY REPORT Reports generated via electronic interface contain original data; however they are lacking the format of the original report. Caution should be taken when reading/interpreti ng unformatted reports. Name: ? KELLEY HOOKS ? Accession #: ? [id number] : ? 1955 (Age: 52) ??F ?Collect Date: ? 09/02/2007 Location: ? [facility] ? Receive Date: ? 09/03/2007 Provider: ?JEWELS CRAMER HIGH SCHOOL SCIENCE TUTOR Copy to: ? Specimen/Source: ?ThinPrep Pap Test, Cervix/Endocervix, processed on [employer] ThinPrep Imaging System, with manual evaluation Last Menstrual Period: ? Previous Gynecologic Pathology: ? Yes DANNY: in past Treatment History: ? Miscellaneous treatment: h/o conization for dysplasia in past ? SPECIMEN ADEQUACY ? Satisfactory for Evaluation - transformation zone component present GENERAL CATEGORIZATION ? Negative for Intraepithelial Lesion or Malignancy INTERPRETATION ? Shift in loyd present suggestive of bacterial vaginosis. ? Document reviewed and electronically signed by: ? Thuy Cardenas, SCT(ASCP) ? Report Date: ??09/06/2007 08:31 End of Report [facility] 09/02/2007 09/03/2007 Jewels Cramer NP PATHOLOGY ORDERABLES Performing Organization Address City/State/[facility] Co de Phone Number [facility] [address] [place] [address] documented in this encounter Visit Diagnoses Not on filedocumented in this encounter
--- OUTSIDE RECORDS SUMMARY | 2024-02-04 18:42 | XMS_ITS | Encounter Summary ---
Author Organization [facility] Address [address] [place] [address] Care Team Providers Care Parasitologist Name Role Phone Unknown, Provider Primary Care Provider [phone] Encounter Details Date Type Department Care Team (Late st Contact Info) Description 09/29/2021 Lab [facility] Pathology & Laboratory Medicine - [facility] [address] [place] [address] Outr Resulting Lab, Provider Social History Tobacco Use Types Packs/Day Years Used Date Smoking Tobacco: Never Assessed Sex and Gender Information Value Date Recorded Sex Assigned at Not on file Gender Identity Not on file Sexual Orientation Not on file documented as of this encounter Plan of Treatment Not on file documented as of this encounter Procedures Procedure Name Priority Date/Time Associated Diagnosis Comments CALCIUM, URINE 24HR Routine 09/29/2021 8:00 EDT documented in this encounter Results * (ABNORMAL) CALCIUM, URINE 24HR (09/29/2021 8:00 EDT) Calcium, Urine 14.4 See Note mg/dL 09/30/2021 11:10 [facility] Comment: NOTE: Reference range not established Calcium, Urine 24 hr 346(H) 100 - 300 mg/24hrs 09/30/2021 11:10 [facility] Comment:Reference range assu mes a normal daily intake of calcium between 600 - 800 mg/day. Urine Volume 2,400 mL 09/30/2021 11:10 [facility] Urine Collection Period 24.0 Hours 09/30/2021 11:10 [facility] Urine 24 HOUR URINE SPECIMEN / Unknown 09/29/2021 8:00 EDT 09/29/2021 17:33 EDT Provider Outr Resulting Lab URINALYSIS O RDERABLES [facility] [address] [place] [address] documented in this encounter Visit Diagnoses Not on filedocumented in this encounter Care Teams Parasitologist Relationship Specialty Start Date End Date Unknown, Provider, PCP - General 05/11/15 documented as of this encounter
--- OUTSIDE RECORDS SUMMARY | 2024-02-04 18:42 | XMS_ITS | Encounter Summary ---
Author Organization [facility] Address [facility] [place] [address] Care Team Providers Care Black Puller Name Role Phone UintahJewels ca Shruthi BAUM Primary Care Provider Encounter Details Date Type Department Care Team (Latest Contact Info) Description 01/23/2015 10:16 AM EDT - 01/23/2015 11:59 PM EDT Hospital [place] [phone] CLINIC, Shiloh Walker MD [facility] [place] [address] Breast cancer, female, left Discharge Disposition: Home [...] Tablet Take by mouth daily. 0 01/15/2015 hydrochlorothiazide (HYDRODIURIL) 25 mg Tablet Take 25 [...] AM EDT Office Visit [place] [address] Roddy Olson MD [facility] [place] [address] documented as of this encounter Procedures Procedure Name Priority Date/Time Associated Diagnosis Comments MRI BREAST WWO CONTRAST BILAT Routine 01/23/2015 12:03 PM EDT Breast cancer, female, left documented in this encounter Results * MRI breast bilateral with/WO contrast (01/23/2015 12:03 PM EDT) Anatomical Region Laterality Modality Breast Bilateral Magnetic Resonan ce 01/23/2015 12:0 3 PM EDT Narrative 02/10/2015 8:18 AM EDT Due to technical issues, this examination was repeated in its entirety. Please see breast MRI examination with gadolinium, accession [id number] for report and complete characterization. Procedure Note Rigo Dalton MD - 02/10/2015 Due to technical issues, this examination was repeated in its entirety.Please see breast MRI examination with gadolinium, accession [id number] for reportand complete characterization. Shiloh Cruz MD IMG MRI ORDERABLES documented in this encounter Visit Diagnoses Diagnosis Breast cancer, female, left documented in this encounter Administered Medications Inactive Administered Medications - up to 3 most recent administrations Medication Order MAR Action Action Date Dose Rate Site gadobutrol (GADAVIST) 1 mMol/mL injection 9 mL 9 mL, Intravenous, ONCE PRN, 1 dose, Starting on 01/23/15 at 1122, Until 01/23/15 at 1139, Per Protocol, Routine Given 01/23/2015 11:39 AM EDT 9 mLs documented in this encounter Care Teams Black Puller Relationship Specialty Start Date End Date Jewels Sorto APRN PCP - General 05/24/10 01/09/18 documented as of this encounter
--- OUTSIDE RECORDS SUMMARY | 2024-02-04 18:42 | XMS_ITS | Encounter Summary ---
Author Organization [facility] Address [facility] [place] [address] Care Team Providers Care Sock Lining Stitcher Name Role Phone AndroscogginJewels ca Shruthi BAUM Primary Care Provider [phone] Reason for Visit * Reason Comments Advice Only Encounter Details Date Type Department Care Team (Late st Contact Info) Description 01/28/2015 1:30 PM EDT Office Visit Hematology [place] [phone] Shiloh Cruz MD [facility] [place] [address] Breast cancer, female, left Discharge Disposition: Home [...] Sign Reading Time Taken Comments Blood Pressure 127/69 01/28/2015 1:14 PM EDT Pulse 84 01/28/2015 1:14 PM EDT Temperature 36.7 ??C (98.1 ??F) 01/28/2015 1:14 PM ED T Respiratory Rate 18 01/28/2015 1:14 PM EDT Oxygen Saturation 96% 01/28/2015 1:14 PM EDT Inhaled Oxygen Concentration - - Weight 87.5 kg (192 lb 14.4 oz) 01/28/2015 1:14 PM EDT Height 164.4 cm (5' 4.74) 01/28/2015 1:14 PM ED T Body Mass Index 32.36 01/28/2015 1:14 PM EDT documented in this encounter Progress Notes * Mariajose Javed RN - 01/28/2015 3:26 PM EDT Comprehensive Breast Program Note Kelley Jensen is a 59 y.o. female with left breast cancer. I met with patient and her , Jesus, and daughter, Elise, in clinic. Kelley is aware surgery will be scheduled after her MRI and CT scan on 02/02. Fifteen minutes was spent in education and providing support. Patient has our contact information. She verbalized understanding of the plan of care and states all her questions were answered. SPECIFIC TEACHIN. Breast Cancer Treatment Handbook (Anisha Adkins, 2012) was received via mail. 2. DVD from our Shared Decision-Marking Program on Early-Stage Breast Cancer was received. 3. She understands she will meet with medical and radiation oncologists (prefers both in [facility]) after surgery. 4. Contact phone number for questions or concerns in the immediate post- operative period. 5. Post operative care including when to call for problems/issues. 6. Post Breast Surgery Exercises handout created by physical therapy at [facility]. Pre-op MRI: pending Referral to familial counseling: No * Shiloh Cruz MD - 01/28/2015 3:12 PM EDT Subjective: Patient ID: Kelley Jensen [...] low to intermediate grade IDC which is ER/CO+ and HER2-. Kelley denies any breast masses, [...] Kelley has some back pain and pulmonary symptoms- [...] is node negative (given that she is ER/CO+ and HER-). She is also aware that both radiation and endocrine therapy will be recommended. She would like to undergo radiation in [facility]. Risks of surgery including bleeding, infection, need for additional surgery and lymphedema were discussed and consent was obtained. I will call Kelley with results of CT scan and MRI when available tome and we will finalize surgical plan at that time. * Shiloh Cruz MD - 01/28/2015 2:55 PM EDT To Whom It May Concern: Kelley Jensen had a doctor's appointment today (January 28, 2015) and was unable to work. Sincerely, Shiloh Cruz MD documented in this encounter Plan of Treatment Upcoming Encounters Date Type Department Care Team (Late st Contact Info) Description 12/04/2024 11:00 AM EDT Office Visit [place] [address] Roddy Olson MD [facility] [place] [address] documented as of this encounter Procedures Procedure Name Priority Date/Time Associated Diagnosis Comments HEMOGRAM STAT 01/28/2015 12:40 PM EDT Breast cancer, female, left DIFFERENTIAL, AUTOMATED STAT 01/28/2015 12:40 PM EDT Breast cancer, female, left CBC (WITH DIFF) STAT 01/28/2015 12:40 PM EDT Breast cancer, female, left COMPREHENSIVE METABOLIC PANEL STAT 01/28/2015 12:40 PM EDT Breast cancer, female, left documented in this encounter Results * (ABNORMAL) Differential, Automated (01/28/2015 12:40 PM EDT) Neutrophil % 55.0 % CERNER MILLENNIUM Neutrophil Absolute 5.49 1.50 - 6.30 x10(3)/mc L CERNER MILLENNIUM Lymph % 38.4 % CERNER MILLENNIUM Lymphocytes Abs 3.8(H) 1.0 - 3.6 x10(3)/mc L CERNER MILLENNIUM Monocyte % 4.9 % CERNER MILLENNIUM Monocyte Abs 0.5 0.2 - 1.0 x10(3)/mc L CERNER MILLENNIUM Eos % 1.2 % CERNER MILLENNIUM Eosinophils Abs 0.1 0.0 - 0.5 x10(3)/mc L CERNER MILLENNIUM Basophil % 0.3 % CERNER MILLENNIUM Baso Absolute 0.0 0.0 - 0.2 x10(3)/mc L CERNER MILLENNIUM Immature Gran % 0.20 % CERN ER MILLENNIUM Comment: Immature granulocytes(IG's)percentage and absolute count will include metamyelocytes, myelocytes, and promyelocytes. Blood smears from CBCs yielding IG's will be scanned manually for concordance. If this scan disagrees with the automated IG or if promyelocytes are noted, a manual differential will be performed. Immature Gran Absolute 0.02 0.00 - 0.05 x10(3)/mc L CERNER MILLENNIUM Blood specimen (specimen) 01/28/2015 12:40 PM EDT 01/28/2015 12:50 PM EDT Narrative Resulting Agency Comment Spec In Lab Shiloh Cruz MD HEMATOLOGY ORDERABL ES CERNER SERGIOIUM * Hemogram (01/28/2015 12:40 PM EDT) White Blood Cell 10.0 4.0 - 10.0 x10(3)/mcL CERNER MILLENNIUM Red Blood Cell 5.04 3.93 - 5.22 x10(6)/mcL CERNER MILLENNIUM Hemoglobin 15.5 11.2 - 15.7 gm/dL [facility] Hematocrit 44.3 34.0 - 45.0 % CERNER MILLENNIUM Mean Cell Volume 87.9 79.0 - 94.0 fL CERNER MILLENNIUM Mean Cell Hemoglobin 30.8 26.6 - 32.2 pg CERNER MILLENNIUM Mean Cell Hemoglobin Concentration 35.0 32.0 - 36.5 gm/dL [facility] Platelet 250 145 - 370 x10(3)/mcL CERNER MILLENNIUM RDW Standard Deviation 41.7 35.0 - 46.0 fL CERNER MILLENNIUM RDW coefficient of variation 13.1 10.9 - 14.4 % CERNER MILLENNIUM Mean Platelet Volume 11.4 9.0 - 12.0 fL CERNER MILLENNIUM Blood specimen (specimen) 01/28/2015 12:40 PM EDT 01/28/2015 12:50 PM EDT Narrative Resulting Agency Comment Spec In Lab Shiloh Cruz MD HEMATOLOGY ORDERABL ES [facility] * Comprehensive metabolic panel (non-fasting) (01/28/2015 12:40 PM EDT) [facility] Glucose 107 65 - 199 mg/dL [facility] MILLENNIUM Comment:Diabetes: >=200 mg/d L plus symptoms Blood Urea Nitrogen 11 8 - 18 mg/dL [facility] MILLENNIUM Creatinine 0.76 0.70 - 1.20 mg/dL [facility] MILLENNIUM Comment: Please note that the pediatric reference intervals supplied above were not validated at [facility]. Results from pediatric patients should be interpreted in conjunction to the patient's age, height and muscle mass. Sodium 141 135 - 145 mmol/L [facility] MILLENNIUM Potassium 3.7 3.5 - 5.0 mmol/L [facility] MILLENNIUM Comment: Please note: ??Patients with WBC [...] the following links into your internet browser. [email or web address] Blood specimen (specimen) 01/28/2015 12:40 PM EDT 01/28/2015 12:50 PM EDT Narrative Resulting Agency Comment Spec In Lab Shiloh Cruz MD CHEMISTRY ORDERABLE S CERNATHALIE SALAZAR documented in this encounter Visit Diagnoses Diagnosis Breast cancer, female, left documented in this encounter Care Teams Sock Lining Stitcher Relationship Specialty Start Date End Date Jewels Sorto APRN PCP - General 05/24/10 01/09/18 documented as of this encounter
--- OUTSIDE RECORDS SUMMARY | 2024-02-04 18:42 | XMS_ITS | Encounter Summary ---
Author Organization [facility] Address [facility] [place] [address] Care Team Providers Care Gun Mechanic Name Role Phone Jewels Sorto BAUTISTA Primary Care Provider [phone] Encounter Details Date Type Department Care Team (Late st Contact Info) Description 12/20/2012 [place] [address] Mckayla Hemphill MD [facility] [place] [address] Social History Tobacco Use Types Packs/Day Years [...] AM EDT Office [place] [address] Roddy Olson MD [facility] [place] [address] documented as of this encounter Procedures Procedure Name Priority Date/Time Associated Diagnosis Comments FILM LIBRARY STORAGE ONLY MAMMO Routine 12/20/2012 4:20 PM EDT documented in this encounter Results * Film Library- Storage only Mammo (12/20/2012 4:20 PM EDT) Anatomical Region Laterality Modality Other 12/20/2012 4:20 PM EDT Narrative 12/16/2014 4:36 PM EDT This is a Non-reportable exam Procedure Note KIM, UNSIGNED REPORT - 12/16/2014 This is a Non-reportable exam Mckayla Hemphill MD [facility] FILM LIBRARY ORD ERABLES documented in this encounter Visit Diagnoses Not on filedocumented in this encounter Care Teams Gun Mechanic Relationship Specialty Start Date End Date Jewels Sorto, BAUTISTA PCP - General 05/24/10 01/09/18 documented as of this encounter
--- OUTSIDE RECORDS SUMMARY | 2024-02-04 18:42 | XMS_ITS | Encounter Summary ---
Author Organization [facility] [place] [address] Care Team Providers Care Trim Crew Supervisor Name Role Phone BannockJewels ca Shruthi BAUM Primary Care Provider [phone] Encounter Details Date Type Department Care Team (Late st Contact Info) Description 01/14/2015 Telephone Hematology [place] [address] Patricia Alatorre Social History Tobacco Use Types Packs/Day Years Used Date Smoking Tobacco: Never Assessed Sex and Gender Information Value Date Recorded Sex Assigned at Not on file Gender Identity Not on file Sexual Orientation Not on file documented as of this encounter Miscellaneous Notes * Telephone Encounter - Patricia Alatorre - 01/14/2015 2:14 PM EDT Age at diagnosis: 59 Date of diagnosis: January 12, 2015 Place of diagnosis: Internal Date of initial appointment: January 28, 2015 Surgeon: Anthony documented in this encounter Plan of Treatment Upcoming Encounters Date Type Department Care Team (Late st Contact Info) Description 12/04/2024 11:00 AM EDT Office [place] [phone] Roddy Olson MD [facility] [place] [address] documented as of this encounter Visit Diagnoses Not on filedocumented in this encounter Care Teams Trim Crew Supervisor Relationship Specialty Start Date End Date Jewels Sorto APRN PCP - General 05/24/10 01/09/18 documented as of this encounter
--- OUTSIDE RECORDS SUMMARY | 2024-02-04 18:42 | XMS_ITS | Encounter Summary ---
Author Organization [facility] [place] [address] Care Team Providers Care Cupola Liner Name Role Phone Jewels Sorto Shruthi BAUM Primary Care Provider [phone] Encounter Details Date Type Department Care Team (Late st Contact Info) Description 01/28/2015 Orders Only H[place]ology [place] [address] Shiloh Cruz MD [facility] [place] [address] Malignant neoplasm of breast (female), unspecified site [...] AM EDT Office [place] [phone] Roddy Olson MD [facility] [place] [address] documented as of this encounter Visit Diagnoses Diagnosis Malignant neoplasm of breast (female), unspecified site documented in this encounter Care Teams Cupola Liner Relationship Specialty Start Date End Date Jewels Sorto APRN PCP - General 05/24/10 01/09/18 documented as of this encounter
--- OUTSIDE RECORDS SUMMARY | 2024-02-04 18:42 | XMS_ITS | Encounter Summary ---
Author Organization [facility] Address [facility] [place] [address] Care Team Providers Care Field Account Manager Name Role Phone Jewels Sorto APRN Primary Care Provider [phone] Encounter Details Date Type Department Care Team (Latest Contact Info) Description 01/12/2015 10:36 AM EDT - 01/12/2015 11:59 PM EDT Hospital [place] [phone] CLINIC, Jewels Persaud APRN [address] [place] [address] Other (abnormal) findings on radiological examination of [...] 08/27/2014 11/17/2015 documented as of this encounter Progress Notes * Little Alcantara - 01/12/2015 7:34 AM EDT Pre-procedure note for needle breast biopsies performed in radiology. Procedure date: Today Procedure type: left breast ultrasound guided biopsy Allergies: Review of patient's allergies indicates not on file. Medications: No current outpatient prescriptions on file. Anticoagulation status: none stopped on: N/A Imaging reviewed and procedural plan approved by Dr. Little Alcantara DO documented in this encounter Plan of Treatment Upcoming Encounters Date Type Department Care Team (Late st Contact Info) Description 12/04/2024 11:00 AM EDT Office [place] [address] Roddy Olson MD [facility] [place] [address] documented as of this encounter Procedures Procedure Name Priority Date/Time Associated Diagnosis Comments MAMMO US BIOPSY BILATERAL Routine 01/12/2015 12:38 PM EDT Other (abnormal) findings on radiological examination of breast SPECIMEN TO PATHOLOGY Routine 01/12/2015 12:19 PM EDT MOLECULAR GENETICS REPORT Routine 01/12/2015 12:04 PM EDT SURGICAL PATHOLOGY REPORT Routine 01/12/2015 12:04 PM EDT documented in this encounter Results * Mammo- US biopsy (01/12/2015 12:38 PM [...] García MD IMG MAMMO ORDERABL ES * Specimen to Pathology (surgical or derm) (01/12/2015 12:19 PM EDT) AP Specimen 01/12/2015 12:1 9 PM EDT 01/12/2015 12:19 PM EDT Narrative REJI SALAZAR - 01/12/2015 12:19 PM EDT Specimen requisition ordered. ??Separate Pathology report to follow Salma Naidu MD PATHOLOG Y/CYTOLOGY ORDERABLES REJI SALAZAR * Molecular Genetics Report (01/12/2015 12:04 PM EDT) Molecular Report ? [facility] ? Provider: ?? GOLDIE NAIDU, Pt. Name: ?? OCTAVIO JENSEN ?SALMA Levine ? Acc #: ?[id number] ?Pt. ? Col Date: ?? 01/12/2015 ? /Sex: ?1955,(59 years),Female ? Rec Date: ?? 01/12/2015 ? LOC: ?3S ? MOLECULAR GENETIC STUDIES ? ---REPORT OF DNA ANALYSIS--- ? TEST: ??HER2(ERBB2)FISH, Breast ? METHOD: ??Fluorescence in situ hybridization (FISH) with chromosome 17 ? centromere (17p11.1-q11.1) probe and a locus specific probe for the HER2 ? gene locus (17q11.2-q12). ? SAMPLE ANALYZED: A1-7 ? RESULT: ?NEGATIVE FOR HER2/ADEBAYO AMPLIFICATION ?TOTAL # SIGNALS/TOTAL # NUCLEI COUNTED FOR HER2 PROBE = 89 ?TOTAL # SIGNALS/TOTAL # NUCLEI COUNTED FOR CEP-17 PROBE = 84 ?HER2 TO CEP-17 RATIO = 1.1 ? (NORMAL RANGE <2.0) ?TOTAL # NUCLEI COUNTED = 40 ? Interpretation: ??Paraffin-embedde d tissue sections were submitted for ? HER2(ERBB2)gene amplification analysis by FISH. ??Direct analysis was ? performed using the Big Box Overstocks Kit. ??Slide adequacy and signal enumeration ? were evaluated and satisfactory for both control and patient slides. ??A ? signal ratio derived from the HER2 probe and the CEP-17 centromere probe of ? 2.0 is considered positive for HER2 gene amplification. ? The 2013 ASCO/CAP guideline recommendation for HER2 testing in breast ? cancer states that samples with a HER2 to CEP-17 ratio of less than 2.0 are ? non-amplified. Specimens with a HER2 to CEP-17 range of 2.0 are considered ? amplified. ? This test is approved by the U.S. FDA for clinical diagnostic use. ? Reference: Jah GEORGE, et al. Recommendations for human epidermal growth ? factor receptor 2 testing in breast cancer: [place] Society of Clinical ? Oncology/College of [place] Pathologists clinical practice guideline ? update. J Clin Oncol. ? 2012May 02. ? Reviewed by: ? Maggy Rosas MD ? Retort Furnace Helper, Molecular Pathology ? [facility] ? Provider: ?? GOLDIE NAIDU Pt. Name: ?? OCTAVIO JENSEN ?SALMA Levine ? Acc #: ?[id number] ?Pt. ? Col Date: ?? 01/12/2015 ? /Sex: ?1955,(59 years),Female ? Rec Date: ?? 01/12/2015 ? LOC: ?3S ? MOLECULAR GENETIC STUDIES ? _ ? Verified date: ??01/15/15 ??SFA ? Verified by: ?Ye NAGY, Chriss ? (Electronic Signature) REJI SALAZAR 01/12/2015 12:0 4 PM EDT Salma Naidu MD PATHOLOG Y/CYTOLOGY ORDERABLES [facility] * Surgical Pathology Report (01/12/2015 12:04 PM EDT) Final Diagnosis - [id number] ? Location: 3S The signing pathologist has (i) examined the relevant preparation(s) for the specimen(s) and (ii) rendered or confirmed the diagnosis(es). . ? Pathology Molecular Genetics Report Results TEST: ??HER2(ERBB2)FISH, Breast METHOD: ??Fluorescence in situ hybridization (FISH) with chromosome 17 centromere (17p11.1-q11.1) probe and a locus specific probe for the HER2 gene locus (17q11.2- q12). SAMPLE ANALYZED: A1-7 RESULT: ?NEGATIVE FOR HER2/ADEBAYO AMPLIFICATION ? TOTAL # SIGNALS/TOTAL # NUCLEI COUNTED FOR HER2 PROBE = 89 ? TOTAL # SIGNALS/TOTAL # NUCLEI COUNTED FOR CEP-17 PROBE = 84 ? HER2 TO CEP-17 RATIO = 1.1 ? (NORMAL RANGE <2.0) ? TOTAL # NUCLEI COUNTED = 40 Interpretation: ??Paraffin-embedde d tissue sections were submitted for HER2(ERBB2)gene amplification analysis by FISH. ??Direct analysis was performed using the Big Box Overstocks Kit. ??Slide adequacy and signal enumeration were evaluated and satisfactory for both control and patient slides. ??A signal ratio derived from the HER2 probe and the CEP-17 centromere probe of ?2.0 is considered positive for HER2 gene amplification. The 2013 ASCO/CAP guideline recommendation for HER2 testing in breast cancer states that samples with a HER2 to CEP-17 ratio of less than 2.0 are non-amplified. Specimens with a HER2 to CEP-17 range of ?2.0 are considered amplified. This test is approved by the U.S. FDA for clinical diagnostic use. Reference: Jah GEORGE, et al. Recommendations for human epidermal growth factor receptor 2 testing in breast cancer: [place] Society of Clinical Oncology/College of [place] Pathologists clinical practice guideline update. J Clin Oncol. 2013 May 02. Reviewed by: Maggy Rosas MD Retort Furnace Helper, Molecular Pathology _ Verified date: ??01/15/15 ??SFA Verified by: ?Ye NAGY, [facility] ?(Electronic Signature) ?Pathology Surgical Pathology Final Report Clinical Information Specimen Submitted: A - Left breast, Lesion 1, Ubx, 18&14 gauge Clinical History: BIRADS 4 mammo/ultrasound/1 . ??INV CA, 2. ??Lymph node, 3. ??FA . Clinical Information Clinical Diagnosis: Same Gross Description Labeled/Fixative: Left breast, lesion 1, U. BX, 18 and 14-gauge, formalin. Quantity/Size: Six, ranging from 0.7-1.5 cm. Tissue Description: Soft, topete-red and yellow fatty needle core biopsies. Ischemic Time: Incomplete information. Sections/Processin g: (T2) ??aml Diagnosis Needle biopsies: ?Left breast, lesion 1 Diagnosis: ?Invasive ductal carcinoma, low to intermediate grade Microcalcification s: ??Associated with invasive carcinoma On A1 - ER immunoreactivity: ??Positive > 90% cancer cells with immunostaining ?Stain Intensity Strong [place] immunoreactivity: ??Positive 11-90% cancer cells with immunostaining ?Stain Intensity Moderate FISH studies are pending. ? *Diagnostic murillo for hormone receptors (ASCO/CAP GUIDELINES, 2010): ?Negative immunoreactivity: <1% tumor cells with immunostaining ?Positive immunoreactivity: ?? >1% tumor cells with immunostaining Immunohistochemica l assays were performed on paraffin-embedded tissue sections fixed in 10% neutral buffered formalin for 6-72 hours using the polymer system technique with appropriate positive and negative controls. ??The assays were performed according to the cycle touring guide ??'s instructions using Anti-ER (SP1) and Anti-NJ (16) antibodies. CR-0 01/13/15 CCB 01/13/15 Verified by: ? Mi Lott DO ?Pathologist ?(Electronic Signature) The attending pathologist whose signature appears on this report has reviewed all diagnostic slides and has edited the gross and/or microscopic portion of the report in rendering the final pathologic diagnosis. 01/15/2015 4:43 PM EDT [facility] BREAST STRUCTURE / Unknown 01/12/2015 12:04 PM EDT 01/12/2015 12:04 PM EDT Salma Naidu MD PATHOLOG Y/CYTOLOGY ORDERABLES REJI [facility] [place] [address] documented in this encounter Visit Diagnoses Diagnosis Other (abnormal) findings on radiological examination of breast documented in this encounter Administered Medications Inactive Administered Medications - up to 3 most recent administrations Medication Order MAR Action Action Date Dose Rate Site lidocaine (XYLOCAINE) 10 mg/mL (1 %) injection 10 mg 10 mg, Intradermal, ONCE, 1 dose, On Sun01/12/15 at 1200, Routine Given 01/12/2015 12:00 PM EDT 10 mg lidocaine-EPINEPHrine 1 %-1:100,000 injection 20 mL 20 mL, Intradermal, ONCE, 1 dose, On Sun01/12/15 at 1200, Routine Given 01/12/2015 12:00 PM EDT 20 mLs documented in this encounter Care Teams Field Account Manager Relationship Specialty Start Date End Date Jewels Sorto APRN PCP - General 05/24/10 01/09/18 documented as of this encounter
--- OUTSIDE RECORDS SUMMARY | 2024-02-04 18:42 | XMS_ITS | Encounter Summary ---
Author Organization [facility] Address [address] [place] [address] Care Team Providers Care Social Welfare Clerk Name Role Phone Unavailable Primary Care Provider Unavailabl e Encounter Details Date Type Department Care Team (Late st Contact Info) Description 11/13/2008 Orders Only [facility] Services - [facility] ([facility]) [address], [place] [id number] Jewels Cramer NP [facility] [address] [place], [place] [phone] Social History Tobacco Use Types Packs/Day Years Used Date Smoking Tobacco: Never Assessed Sex and Gender Information Value Date Recorded Sex Assigned at Not on file Gender Identity Not on file Sexual Orientation Not on file documented as of this encounter Plan of Treatment Not on file documented as of this encounter Procedures Procedure Name Priority Date/Time Associated Diagnosis Comments CYTOPATHOLOGY Routine 11/13/2008 0:00 EDT documented in this encounter Results * CYTOPATHOLOGY (11/13/2008 0:00 EDT) Pathology Report: CYTOPATHOLOGY REPORT ? Reports generated via electronic interface contain original data; ? however they are lacking the format of the original report. ? Caution should be taken when reading/interpreti ng unformatted reports. ? Name: ? KELLEY HOOKS ? Accession #: ? [id number] ? : ? 1955 (Age: 53) ??F ?Collect Date: ? 11/13/2008 ? Location: ? [facility] ? Receive Date: ? 11/16/2008 ? Provider: ?JEWELS CRAMER FABRICATING MACHINE OPERATOR ? Copy to: ? Specimen/Source: ?Pap Test, Cervix/Endocervix, ThinPrep Imaging System ? with manual evaluation ? Last Menstrual Period: ? 1990's ? Previous Gynecologic Pathology: ? DANNY: H/O dysplasia ? Treatment History: ? Miscellaneous treatment: conization ? SPECIMEN ADEQUACY ? Satisfactory for Evaluation ? - transformation zone component present ? GENERAL CATEGORIZATION ? Negative for Intraepithelial Lesion or Malignancy ? INTERPRETATION ? Shift in loyd present suggestive of bacterial vaginosis. ? Document reviewed and electronically signed by: ? Sacha Stumler, CT(ASCP) ? Report Date: ??11/18/2008 12:27 ? End of Report ? [facility] 11/13/2008 11/16/2008 Jewels Cramer FABRICATING MACHINE OPERATOR PATHOLOGY ORDERABLES [facility] [address] [place] [address] documented in this encounter Visit Diagnoses Not on filedocumented in this encounter
[2024-02-05 18:18] LABS: Hemoglobin A1C 5.5 % (<5.7)
== END 2024-02-04 18:35 | disposition home or self-care (01) ==
LOC: NCHCN 18:34
PROVIDERS: PCP Nurse Practitioner Family; Visit Provider Nurse Practitioner Family
DX: E03.9 Hypothyroidism, unspecified (principal); R73.03 Prediabetes; M81.0 Age-related osteoporosis without current pathological fracture
CPT/HCPCS: 82306; 83036; 84443

== ENCOUNTER → 2024-03-18 08:07 | Outpatient (BNVA) | payer MEDICARE, SELFPAY | PROVIDERS: PCP Nurse Practitioner Family; Visit Provider Psychiatry & Neurology Neurology | DX: G25.0 Essential tremor (principal) | CPT/HCPCS: 99213 ==

== ENCOUNTER 2024-06-02 02:01 | Outpatient (CLI) | payer MEDICARE, SELFPAY ==
--- NOTE | 2024-06-02 | DI.MAMMO_ITS ---
Exam(s) MG MAMMO SCREENING 60 MIN DUR EXAM: MG MAMMO SCREENING 60 MIN DUR CLINICAL HISTORY: Screening, personal h/o breast CA, Z85.3; h/o T1N1 ER+ lt-sided breast CA TECHNIQUE: Mammograms were interpreted according to the usual protocol including computer analysis w [employer] CAD system, tomosynthesis and C-view imaging. COMPARISON: 2014 through 2022 FINDINGS: The breasts are composed of scattered fibroglandular densities, Breast Density category B. No suspicious masses or suspicious microcalcifications are seen. Post lumpectomy changes upper outer quadrant with metallic clips. No skin thickening or abnormal axillary lymph nodes are seen. There has been no significant change from prior exams. IMPRESSION: BI-RADS Category 2 - Benign Findings Yearly screening mammography is recommended. Breast Density - Category B, scattered fibroglandular densities. A negative radiographic report should not delay biopsy if a dominant or clinically suspicious mass is present. Up to ten percent of cancers are not identified on mammography. A negative report may reinforce clinical impression. Adenosis and dense breasts may obscure an underlying neoplasm. False positive reports average 6 to 10%. Patient will receive a letter notifying them of these results.
== END 2024-06-02 02:21 ==
LOC: DI 02:01
PROVIDERS: PCP Nurse Practitioner Family; Visit Provider Nurse Practitioner Family
DX: Z12.31 Encounter for screening mammogram for malignant neoplasm of breast (principal); Z85.3 Personal history of malignant neoplasm of breast; R92.323 Mammographic fibroglandular density, bilateral breasts
CPT/HCPCS: 77063; 77067

== ENCOUNTER → 2024-07-22 09:13 | Outpatient (BNVA) | payer MEDICARE, SELFPAY | PROVIDERS: PCP Nurse Practitioner Family; Referring Provider Nurse Practitioner Family; Visit Provider Physician Assistant Surgical | DX: J43.2 Centrilobular emphysema (principal); Z87.891 Personal history of nicotine dependence; R91.1 Solitary pulmonary nodule | CPT/HCPCS: 99214 ==

== ENCOUNTER 2024-09-29 19:11 | Outpatient (REF) | payer MEDICARE, SELFPAY ==
[2024-09-29 20:04] LABS: ALT 35 U/L (14-59); AST 21 U/L (15-37); Albumin 3.7 g/dL (3.4-5.0); Alkaline Phosphatase 82 U/L (46-116); Anion Gap 8.2 mmol/L (3-11); BUN 17 mg/dL (7-18); Bilirubin, Total 0.3 mg/dL (0.2-1.0); CO2 28.8 mmol/L (21.0-32.0); CREATININE 0.7 mg/dL (0.55-1.02); Calcium 9.7 mg/dL (8.5-10.1); Calculated LDL 91 mg/dL (<100); Chloride 106 mmol/L (98-107); Cholesterol 211 mg/dL (<200); Estimated GFR 93.56 (mL/min/1.73m2); Glucose 92 mg/dL (74-106); HDL Cholesterol 60 mg/dL (>or=50); Potassium 4.5 mmol/L (3.5-5.1); Sodium 143 mmol/L (136-145); TSH 1.99 uIU/mL (0.36-3.74); Total Protein 6.7 g/dL (6.4-8.2); Triglyceride 300 mg/dL (<150); Vitamin D 25 Total 52 ng/mL (30-100)
== END 2024-09-29 19:12 | disposition home or self-care (01) ==
LOC: NCHCN 19:11
PROVIDERS: PCP Nurse Practitioner Family; Visit Provider Nurse Practitioner Family
DX: E78.5 Hyperlipidemia, unspecified (principal); Z78.0 Asymptomatic menopausal state; E03.9 Hypothyroidism, unspecified
CPT/HCPCS: 80053; 80061; 82306; 84443

== ENCOUNTER → 2025-01-19 08:43 | Outpatient (BNVA) | payer MEDICARE, SELFPAY | PROVIDERS: PCP Nurse Practitioner Family; Referring Provider Nurse Practitioner Family; Visit Provider Physician Assistant Surgical | DX: J43.2 Centrilobular emphysema (principal); R91.1 Solitary pulmonary nodule; Z87.891 Personal history of nicotine dependence | CPT/HCPCS: 99214 ==

== ENCOUNTER → 2025-03-17 08:18 | Outpatient (BNVA) | payer MEDICARE, SELFPAY | PROVIDERS: PCP Nurse Practitioner Family; Visit Provider Psychiatry & Neurology Neurology | DX: G25.0 Essential tremor (principal); I10 Essential (primary) hypertension | CPT/HCPCS: 99213 ==